=== PATIENT | female | born 1960 | race Caucasian/White ===

== ENCOUNTER 2017-10-06 06:29 | Emergency (ER) | payer MEDICAID, SELFPAY ==
[2017-10-06] VITALS (10 sets, daily range): BP systolic 127–131; BP diastolic 69–78; PULSE 110–117; RESP 22–36; TEMP 37.2; O2SAT 96–98
--- NOTE | 2017-10-06 06:47 | DI.REPORT_ITS ---
SYMPTOMS/DIAGNOSIS: LT CHEST PAIN AFTER FALL PA AND LATERAL CHEST: Comparison is 05/08/[address] scan of the chest is 09/28/17. The heart size and pulmonary vasculature are within normal limits. There is a stable diffuse reticular pattern in the lungs which is chronic. No new infiltrates, effusions or pneumothoraces are identified. The bones appear intact. IMPRESSION: No acute process.
--- NOTE | 2017-10-06 06:47 | ED.GENADUL ---
Disposition Clinical Impression: Fall, Chest pain, Arm pain, left Disposition: HOME Instructions: Chest Pain (ED), Contusion in Adults (ED), Fall Prevention (ED) Additional Instructions: Use sling as needed for comfort. Please take tylenol (acetaminophen) 650 mg every 6 hours as needed for pain. Please follow-up with your primary care physician. Return to the emergency department immediately for any worsening or new concerning symptoms. Referrals: Remy Ortega [Primary Care Provider] - Medical Decision Making - Medical Decision Making 6:50 --57-year-old female presents after mechanical fall yesterday with pain left chest as well as left upper arm. Screening EKG reviewed and interpreted by me: Sinus tachycardia 116 bpm left axis, nondiagnostic. Plan to assess for pneumothorax with a chest x-ray. Consider arm fracture. Will obtain x-ray. 8:05 --chest x-ray interpreted by radiology: Patchy increased opacity at the lung bases may reflect chronic interstitial lung disease. Left humerus x-ray interpreted by radiology: Normal left humerus x-ray with no acute fracture. Left shoulder x-ray interpreted by radiology: Normal left shoulder x-ray with no acute fracture. Will place sling for comfort. Advised tylenol and follow-up pcp. History of Present Illness - General Chief complaint: Chest/Rib Stated complaint: CALEX Time Seen by Provider: 10/06/17 06:46 Source: patient, EMS, RN notes reviewed Mode of arrival: EMS Limitations: no limitations - History of Present Illness Initial comments: 57-year-old female with history of COPD, bipolar disorder, alcohol abuse, here with chief complaint of left arm pain. Patient notes that she tripped and fell yesterday and subsequently developed pain in her arm, shoulder as well as her left chest. Pain is severe and worse with movement. No associated numbness. No worsening of her chronic shortness of breath. - Related Data Albuterol Sulfate [Proair Hfa] 2 puff IH Q4H PRN PRN 01/01/16 Citalopram [CeleXA] 40 mg PO DAILY 01/03/16 RisperiDONE [risperDAL] 1.5 mg PO HS 01/03/16 Levothyroxine Sodium [Synthroid] 75 mcg PO DAILY #90 tablet 06/25/16 Magnesium Oxide [Mag-Ox 400] 800 mg PO BID #60 tab 06/25/16 Nicotine [Nicoderm Cq] 14 mg TD DAILY #30 patch 06/25/16 Polyethylene Glycol 3350 [Miralax] 17 gm PO BID PRN PRN packet 06/25/16 Epinephrine [Epipen 2-Janes] 0.3 mg IM PRN PRN 07/10/16 Budesonide/Formoterol Fumarate [Symbicort 160/4.5 Mcg Inhaler] 2 puff IH BID inh 07/16/16 Cyanocobalamin [Vitamin B-12] 1,000 mcg PO DAILY #100 tab 07/16/16 Cyclobenzaprine HCl 10 mg PO TID PRN 07/29/16 Disulfiram [Antabuse] 250 mg PO DAILY 07/29/16 Ibuprofen 800 mg PO TID 07/29/16 Omeprazole 40 mg PO DAILY 07/29/16 Umeclidinium Brm/Vilanterol Tr [Anoro Ellipta 62.5-25 Mcg INH] 1 each IH DAILY 07/29/16 TraZODone [Desyrel] 100 mg PO HS PRN 08/04/16 Zolpidem Tartrate [Ambien] 10 mg PO HS PRN PRN 08/04/16 Alprazolam [Xanax Xr] 3 mg PO DAILY tab-cap 10/28/16 Buspirone HCl 15 mg PO BID tab-cap 10/28/16 Gabapentin 100 mg PO TID 10/28/16 Calcium Citrate/Vitamin D2 [Clemente-Citrate Plus Vitamin D Tab] 1 tab PO DAILY 12/04/16 Gemfibrozil 600 mg PO BID 12/04/16 Pregabalin [Lyrica] 1 cap PO BID 12/04/16 Lisinopril 5 mg PO DAILY 12/06/16 Albuterol/Ipratropium [Duoneb Updraft] 3 ml UPD Q6H 30 Days #1 b 05/17/17 Famciclovir [Famvir] 500 mg PO Q8H 2 Days #6 tab 05/17/17 Meloxicam 15 mg PO DAILY #90 tab-cap 09/28/17 BuPROPion [Wellbutrin] 300 mg PO DAILY 10/06/17 Allergies Allergy/AdvReac Type Severity Reaction Status Date / Time venom-honey bee Allergy Severe Anaphylaxsi Unverified 10/06/17 06:41 s Review of Systems Respiratory: shortness of breath (Chronic unchanged). denies: cough Cardiovascular: chest pain (Positional) Gastrointestinal: denies: abdominal pain Hematological/Lymphatic: easy bruising Comment: All other systems reviewed and negative Past Medical History - Past Medical History Medical history: COPD, GERD, hyperlipidemia, hypertension Hypothyroidism; Pulmonary Fibrosis Surgical history: , hysterectomy, other (right shoulder replacement) Family history: CAD/[place], cancer, diabetes - Social History Alcohol use: recent Drug use: marijuana General Exam - General Limitations: no limitations General appearance: alert, in no apparent distress - Head Head exam: Present: atraumatic, normocephalic - Eye Eye exam: Present: EOMI. Absent: scleral icterus, conjunctival injection - ENT ENT exam: Present: mucous membranes moist - Respiratory Respiratory exam: Present: wheezes (Faint bilateral), chest wall tenderness (Left anterior and lateral chest that reproduces her pain), decreased breath sounds - Cardiovascular Cardiovascular Exam: Present: normal rhythm, tachycardia, normal heart sounds - GI/Abdominal GI/Abdominal exam: Present: soft. Absent: distended, tenderness - Extremities Exam Extremities exam: Present: other (Bruising all extremities, left upper extremity: Tender palpation proximal to mid humerus as well as shoulder, distal sensation and motor intact, 2+ radial pulse) - Neurological Exam Neurological exam: Present: alert. Absent: altered - Psychiatric Psychiatric exam: Present: normal affect - Skin Skin exam: Present: warm, dry, intact Course Vital Signs - 24 hr 10/06/17 06:36 Temperature 37.2 C Pulse 117 H Respiratory 28 H Rate Blood Pressure 127/69 Pulse Oximetry 96
--- NOTE | 2017-10-06 06:48 | DI.REPORT_ITS ---
SYMPTOMS/DIAGNOSIS: LEFT ARM PAIN AND LEFT SHOULDER PAIN S/P FALL LEFT SHOULDER AND LEFT HUMERUS: Multiple views were obtained. Comparison is 10/28/16. No acute fracture or dislocation is identified. The soft tissues are unremarkable. IMPRESSION: No acute abnormality.
--- NOTE | 2017-10-06 06:50 | ED.GENADUL_ITS ---
Disposition Clinical Impression: Fall, Chest pain, Arm pain, left Disposition: HOME Instructions: Chest Pain (ED), Contusion in Adults (ED), Fall Prevention (ED) Additional Instructions: Use sling as needed for comfort. Please take tylenol (acetaminophen) 650 mg every 6 hours as needed for pain. Please follow-up with your primary care physician. Return to the emergency department immediately for any worsening or new concerning symptoms. Referrals: Remy Ortega [Primary Care Provider] - Medical Decision Making - Medical Decision Making 6:50 --57-year-old female presents after mechanical fall yesterday with pain left chest as well as left upper arm. Screening EKG reviewed and interpreted by me: Sinus tachycardia 116 bpm left axis, nondiagnostic. Plan to assess for pneumothorax with a chest x-ray. Consider arm fracture. Will obtain x-ray. 8:05 --chest x-ray interpreted by radiology: Patchy increased opacity at the lung bases may reflect chronic interstitial lung disease. Left humerus x-ray interpreted by radiology: Normal left humerus x-ray with no acute fracture. Left shoulder x-ray interpreted by radiology: Normal left shoulder x-ray with no acute fracture. Will place sling for comfort. Advised tylenol and follow-up pcp. History of Present Illness - General Chief complaint: Chest/Rib Stated complaint: CALEX Time Seen by Provider: 10/06/17 06:46 Source: patient, EMS, RN notes reviewed Mode of arrival: EMS Limitations: no limitations - History of Present Illness Initial comments: 57-year-old female with history of COPD, bipolar disorder, alcohol abuse, here with chief complaint of left arm pain. Patient notes that she tripped and fell yesterday and subsequently developed pain in her arm, shoulder as well as her left chest. Pain is severe and worse with movement. No associated numbness. No worsening of her chronic shortness of breath. - Related Data Albuterol Sulfate [Proair Hfa] 2 puff IH Q4H PRN PRN 01/01/16 Citalopram [CeleXA] 40 mg PO DAILY 01/03/16 RisperiDONE [risperDAL] 1.5 mg PO HS 01/03/16 Levothyroxine Sodium [Synthroid] 75 mcg PO DAILY #90 tablet 06/25/16 Magnesium Oxide [Mag-Ox 400] 800 mg PO BID #60 tab 06/25/16 Nicotine [Nicoderm Cq] 14 mg TD DAILY #30 patch 06/25/16 Polyethylene Glycol 3350 [Miralax] 17 gm PO BID PRN PRN packet 06/25/16 Epinephrine [Epipen 2-Janes] 0.3 mg IM PRN PRN 07/10/16 Budesonide/Formoterol Fumarate [Symbicort 160/4.5 Mcg Inhaler] 2 puff IH BID inh 07/16/16 Cyanocobalamin [Vitamin B-12] 1,000 mcg PO DAILY #100 tab 07/16/16 Cyclobenzaprine HCl 10 mg PO TID PRN 07/29/16 Disulfiram [Antabuse] 250 mg PO DAILY 07/29/16 Ibuprofen 800 mg PO TID 07/29/16 Omeprazole 40 mg PO DAILY 07/29/16 Umeclidinium Brm/Vilanterol Tr [Anoro Ellipta 62.5-25 Mcg INH] 1 each IH DAILY 07/29/16 TraZODone [Desyrel] 100 mg PO HS PRN 08/04/16 Zolpidem Tartrate [Ambien] 10 mg PO HS PRN PRN 08/04/16 Alprazolam [Xanax Xr] 3 mg PO DAILY tab-cap 10/28/16 Buspirone HCl 15 mg PO BID tab-cap 10/28/16 Gabapentin 100 mg PO TID 10/28/16 Calcium Citrate/Vitamin D2 [Clemente-Citrate Plus Vitamin D Tab] 1 tab PO DAILY 12/04 Gemfibrozil 600 mg PO BID 12/04/16 Pregabalin [Lyrica] 1 cap PO BID 12/04/16 Lisinopril 5 mg PO DAILY 12/06/16 Albuterol/Ipratropium [Duoneb Updraft] 3 ml UPD Q6H 30 Days #1 b 05/17/17 Famciclovir [Famvir] 500 mg PO Q8H 2 Days #6 tab 05/17/17 Meloxicam 15 mg PO DAILY #90 tab-cap 09/28/17 BuPROPion [Wellbutrin] 300 mg PO DAILY 10/06/17 Allergies Allergy/AdvReac Type Severity Reaction Status Date / Time venom-honey bee Allergy Severe Anaphylaxsi Unverified 10/06/17 06:41 s Review of Systems Respiratory: shortness of breath (Chronic unchanged). denies: cough Cardiovascular: chest pain (Positional) Gastrointestinal: denies: abdominal pain Hematological/Lymphatic: easy bruising Comment: All other systems reviewed and negative Past Medical History - Past Medical History Medical history: COPD, GERD, hyperlipidemia, hypertension Hypothyroidism; Pulmonary Fibrosis Surgical history: , hysterectomy, other (right shoulder replacement) Family history: CAD/[place], cancer, diabetes - Social History Alcohol use: recent Drug use: marijuana General Exam - General Limitations: no limitations General appearance: alert, in no apparent distress - Head Head exam: Present: atraumatic, normocephalic - Eye Eye exam: Present: EOMI. Absent: scleral icterus, conjunctival injection - ENT ENT exam: Present: mucous membranes moist - Respiratory Respiratory exam: Present: wheezes (Faint bilateral), chest wall tenderness ( Left anterior and lateral chest that reproduces her pain), decreased breath sounds - Cardiovascular Cardiovascular Exam: Present: normal rhythm, tachycardia, normal heart sounds - GI/Abdominal GI/Abdominal exam: Present: soft. Absent: distended, tenderness - Extremities Exam Extremities exam: Present: other (Bruising all extremities, left upper extremity : Tender palpation proximal to mid humerus as well as shoulder, distal sensation and motor intact, 2+ radial pulse) - Neurological Exam Neurological exam: Present: alert. Absent: altered - Psychiatric Psychiatric exam: Present: normal affect - Skin Skin exam: Present: warm, dry, intact Course Vital Signs - 24 hr 10/06/17 06:36 Temperature 37.2 C Pulse 117 H Respiratory 28 H Rate Blood Pressure 127/69 Pulse Oximetry 96
--- NOTE | 2017-10-06 07:40 | DI.VRAD_ITS ---
EXAM: XR Chest, 2 Views EXAM DATE/TIME: 10/06/2017 6:49 AM. CLINICAL HISTORY: 57 years old, female; Pain; Chest pain TECHNIQUE: Frontal and lateral views of the chest. COMPARISON: CR - PORTABLE AP CHEST, POST LINE 2017-05-10 11:42 FINDINGS: Lungs: Patchy increased opacity at the lung bases may reflect chronic interstitial lung disease. Pleural space: Unremarkable. No pneumothorax. Heart: Unremarkable. No cardiomegaly. Mediastinum: Unremarkable. Bones/joints: Unremarkable. IMPRESSION: Patchy increased opacity at the lung bases may reflect chronic interstitial lung disease. Dictated and Authenticated by: Leander Edward MD. Ordering:NIKKI RAHMAN MD
--- NOTE | 2017-10-06 07:41 | DI.VRAD_ITS ---
EXAM: XR Left Humerus, 2 or More Views EXAM DATE/TIME: 10/06/2017 6:49 AM. CLINICAL HISTORY: 57 years old, female; Injury or trauma; Fall; Initial encounter; Sprain or strain; Arm, upper; Left TECHNIQUE: Frontal and lateral views of the left humerus. COMPARISON: No relevant prior studies available. FINDINGS: Bones/joints: Unremarkable. No acute fracture. No dislocation. Soft tissues: Unremarkable. IMPRESSION: Normal left humerus x-rays. Dictated and Authenticated by: Leander Edward MD. Ordering:NIKKI RAHMAN MD
--- NOTE | 2017-10-06 07:41 | DI.VRAD_ITS ---
EXAM: XR Left Shoulder Complete, 2 or More Views EXAM DATE/TIME: 10/06/2017 6:49 AM. CLINICAL HISTORY: 57 years old, female; Pain; Shoulder; Left TECHNIQUE: Two or more views of the left shoulder. COMPARISON: CR - LEFT SHOULDER COMPLETE 2016-10-28 10:20 FINDINGS: Bones/joints: Unremarkable. No acute fracture. No dislocation. Soft tissues: Unremarkable. IMPRESSION: Normal left shoulder x-rays. Dictated and Authenticated by: Leander Edward MD. Ordering:NIKKI RAHMAN MD
[2017-10-06] MEDS: Acetaminophen 325 MG TAB 650 MG PO (08:10)
--- NOTE | 2017-10-06 08:44 | NUR.NOTE ---
Nursing Note: Medium sling fitted to pt. pt understands instructions, no questions.
== END 2017-10-06 08:39 | disposition home or self-care (01) ==
PROVIDERS: Emergency Provider Student in an Organized Health Care Education/Training Program; PCP Family Medicine
DX: R07.81 Pleurodynia (principal); M79.622 Pain in left upper arm; M25.512 Pain in left shoulder; W01.198A Fall on same level from slipping, tripping and stumbling with subsequent striking against other object, initial encounter; J44.9 Chronic obstructive pulmonary disease, unspecified; F17.210 Nicotine dependence, cigarettes, uncomplicated; I10 Essential (primary) hypertension
CPT/HCPCS: 93005; 99284; 71046; 73030; 73060; 93010; 99285; L3650

== ENCOUNTER 2017-10-09 17:12 | Emergency (ER) | payer MEDICAID, SELFPAY ==
[2017-10-09] VITALS (38 sets, daily range): BP systolic 77–158; BP diastolic 49–75; PULSE 91–119; RESP 8–34; TEMP 36.3–37.2; O2SAT 83–100
--- NOTE | 2017-10-09 17:14 | DI.REPORT_ITS ---
SYMPTOM/DIAGNOSIS: S/P ARREST CHEST: Portable AP view. Comparison 10/06/17 The heart size and pulmonary vasculature are within normal limits. There is an endotracheal tube in good position approximately 4 1/2 cm above the que. No effusions or pneumothoraces are identified. There are bilateral interstitial infiltrates present. No focal consolidating infiltrate is seen. No acute osseous abnormalities identified. IMPRESSION: 1. Endotracheal tube in good position approximately 4.5 cm above the que 2. Bilateral interstitial markings which may represent edema or pneumonitis. Please correlate clinically.
[2017-10-09] MEDS: Etomidate 20 MG/10 ML VIAL IVP (17:16)
[2017-10-09] MEDS: Succinylcholine 200 MG/10 ML VIAL 100 MG IVP (17:17)
--- NOTE | 2017-10-09 17:27 | DI.RPTCT_ITS ---
SYMPTOM/DIAGNOSIS: OBTUNDED, CARDIAC ARREST CT BRAIN: Noncontrast. Comparison is 07/15/16 There is patient motion artifact present. The bedoya white matter differentiation is well maintained. The ventricles are intact. The basilar cisterns are patent. No intracranial hemorrhage, infarct, acute midline shift or mass effect is identified. The patient has an endotracheal tube and a nasogastric tube in place. There is mild mucosal thickening in the right maxillary sinus and ethmoid air cells bilaterally. The remaining visualized paranasal sinuses are clear. The mastoid air cells are well pneumatized. The calvarium is intact. There is a small scalp hematoma overlying the right frontal bone. IMPRESSION: 1. No acute intracranial process. 2. Small scalp hematoma overlying the right frontal bone. 3. Sinus disease as described. CT CERVICAL SPINE: Multiple contiguous axial images of the cervical spine were obtained. Sagittal and coronal reformatted images were evaluated on the [facility]'s work station. There is patient motion artifact present. This does compromise the examination. There is no acute fracture or subluxation in the cervical spine. There is straightening of the normal cervical lordosis. This may be due to muscle spasm or patient positioning. The patient has an endotracheal tube and a nasogastric tube in place. There are mild to moderate degenerative changes present throughout the cervical spine. IMPRESSION: 1. Patient motion artifact. This does limit the examination. A nondisplaced fracture could be missed on this examination. 2. No definite acute fracture or dislocation is identified.
[2017-10-09] MEDS: PROPOFOL 1,000 MG/100 ML BTL 10.1 MG (17:30)
[2017-10-09] MEDS: Albuterol 2.5 MG/3 ML INH SOLN VIAL 7.5 MG (17:30)
[2017-10-09] MEDS: PROPOFOL 1,000 MG/100 ML BTL 15.1 MG IVPB (17:30)
[2017-10-09] MEDS: Normal Saline 500 ML IV (17:31)
[2017-10-09] MEDS: PROPOFOL 1,000 MG/100 ML BTL 10.1 MG IVPB (17:33)
[2017-10-09] MEDS: PROPOFOL 1,000 MG/100 ML BTL 1 MG (17:33)
[2017-10-09 17:55] LABS: Lactate-non-spesis 5.3 mmol/L (0.6-1.4)
--- NOTE | 2017-10-09 17:55 | DI.RPTCT_ITS ---
SYMPTOM/DIAGNOSIS : CARDIAC ARREST, HYPOXIC CT SCAN CHEST: CT angiography was performed with multi slice acquisition and multi planar and 3D reconstruction. CT scan of the chest was performed according to the pulmonary embolus protocol. There is patient motion artifact present. Comparison is 09/28/17. There is no evidence of a pulmonary embolus. The thoracic aorta is normal in caliber with atherosclerosis. No dissection or aneurysm is seen. Heart size is within normal limits. No significant pericardial effusion. No findings to suggest right ventricular dysfunction is seen. There are mildly enlarged lymph nodes in the mediastinum but no significant adenopathy is present. No pleural effusion or pneumothorax is identified. There are bilateral pulmonary infiltrates present which may represent atelectasis, pneumonia or interstitial edema. There are stable pulmonary nodules seen compared to the examination from . Moderate emphysematous changes are present in the lungs. Degenerative changes are seen in the spine. The patient has endotracheal tube which is in good position above the que. There is a nasogastric tube present. The tube passes in to the stomach in good position. IMPRESSION: 1. No evidence of a pulmonary embolus or thoracic aortic dissection. 2. Bilateral pulmonary infiltrates. This may represent edema or infection. Atelectasis cannot be excluded. Some degree of aspiration should be considered. 3. Stable pulmonary nodules and mediastinal lymph nodes.
[2017-10-09 17:59] LABS: Bilirubin Negative (Negative); Blood Trace-lysed (Negative); Clarity Clear; Glucose Negative (Negative); Ketones Trace mg/dL (Negative); Leukocyte Esterase Negative (Negative); Nitrite Negative (Negative); Specific Gravity >= 1.030 (1.005-1.025); Urobilinogen 0.2 EU/dL (Up TO 0.2); pH 5.5 (5-8)
[2017-10-09 18:00] LABS: HCT 40.2 % (36.0-46.0); HGB 13.9 g/dL (12.0-15.5); Mean Corp. HGB Concentration 34.6 g/dL (32.0-36.0); Mean Corpuscular Hemoglobin 33.7 pg (27.0-33.0); Mean Corpuscular Volume 97.6 fL (80-95); Mean Platelet Volume 10.4 fL (8.0-11.0); Platelet Count 169 x1000/uL (130-400); RBC 4.12 m/cumm (4.00-5.20); RBC Distribution Width 16.8 % (11.7-14.6); White Blood Cell Count 15.01 k/cumm (4.4-10.8)
--- NOTE | 2017-10-09 18:01 | DI.VRAD_ITS ---
EXAM: XR Chest, 1 View CLINICAL HISTORY: 57 years old, female; Condition or disease; Other: S/P arrest; Prior surgery TECHNIQUE: Frontal view of the chest. COMPARISON: CR - CHEST 2 VIEWS PA,LAT 2017-10-06 07:00 FINDINGS: Lungs: Prominent reticular markings consistent with interstitial disease, likely interstitial edema. Other interstitial lung processes are not excluded. Patchy densities in the left lung base, likely atelectasis. Pleural space: No pleural effusion or pneumothorax. Heart: Unremarkable cardiomediastinal silhouette and pulmonary vasculature. Mediastinum: See above. Bones/joints: Unremarkable. No acute osseous abnormality identified. Tubes, lines and devices: Endotracheal tube present with its tip approximately 4.5 cm above the que. IMPRESSION: 1. Endotracheal tube tip approximately 4.5 cm above the que. 2. Prominent reticular markings consistent with interstitial disease, likely interstitial edema. Dictated and Authenticated by: Duran Ibanez MD. Ordering:ANDREA TOURE MD
[2017-10-09 18:10] LABS: Salicylate 8.1 mg/dL (2.8-20.0)
[2017-10-09 18:10] LABS: HCO3 22 mmol/L (22-28); pO2 236 mmHg (83-108); sO2 98 % (94-98); tCO2 22 mmol/L (22-29)
[2017-10-09 18:12] LABS: *AMPHETAMINES SCREEN URINE Negative (Negative); *BARBITURATES SCREEN URINE Negative (Negative); *BENZODIAZEPINES SCREEN URINE POSITIVE (Negative); Cannabinoids THC Negative (Negative); Cocaine Screen,Urine Negative (Negative); METHADONE URINE SCREEN Negative (Negative); OPIATES URINE SCREEN Negative (Negative)
[2017-10-09 18:12] LABS: pH 7.05 (7.35-7.45)
[2017-10-09 18:13] LABS: Site Right Radial; pCO2 80 mmHg (34-47)
[2017-10-09 18:14] LABS: ALT 68 U/L (12-78); AST 129 U/L (15-37); Albumin 3.5 g/dL (3.4-5.0); Alkaline Phosphatase 154 U/L (46-116); Anion Gap 16.8 mmol/L (3-11); BUN 10 mg/dL (7-18); Bilirubin, Direct 0.16 mg/dL (0.00-0.20); Bilirubin, Total 0.3 mg/dL (0.2-1.0); CO2 20.2 mmol/L (21.0-32.0); CREATININE 0.96 mg/dL (0.55-1.02); Calcium 8.7 mg/dL (8.5-10.1); Chloride 94 mmol/L (98-107); Glucose 216 mg/dL (70-100); Magnesium 2.2 mg/dL (1.8-2.4); Potassium 5.1 mmol/L (3.5-5.1); Sodium 131 mmol/L (136-145); Total Protein 8.1 g/dL (6.4-8.2)
[2017-10-09 18:14] LABS: FIO2L Unknown/Not Given L
[2017-10-09 18:16] LABS: Tricyclic Antidepressants POSITIVE (Negative)
[2017-10-09 18:16] LABS: Troponin I < 0.02 ng/mL (0.00-0.06)
--- NOTE | 2017-10-09 18:16 | ED.GENADUL ---
Disposition Clinical Impression: Respiratory arrest, Acidosis, Sepsis, Cardiac arrest, Septic shock Disposition: FIDE SAENZ ([facility]) Condition: Critical Medical Decision Making - Lab Data Laboratory Tests 10/09/17 10/09/17 10/09/17 17:15 17:15 17:40 Sample Site pCO2 pO2 O2 Saturation ABG pH ABG HCO3 ABG Total CO2 ABG Base Excess Oxygen Liter Flow Sodium 131 L Potassium 5.1 Chloride 94 L Carbon Dioxide 20.2 L Anion Gap 16.8 H BUN 10 Creatinine 0.96 Estimated GFR/1.73 m2 >= 60.00 Glucose 216 H Lactate 5.3 H Calcium 8.7 Magnesium 2.2 Total Bilirubin 0.3 Conjugated Bilirubin 0.16 AST 129 H ALT 68 Alkaline Phosphatase 154 H Troponin I < 0.02 Total Protein 8.1 Albumin 3.5 Urine Color Yellow Urine Clarity Clear Urine pH 5.5 Ur Specific Mystic >= 1.030 H Urine Protein 100 H Urine Ketones Trace H Urine Blood Trace-lysed H Urine Nitrite Negative Urine Bilirubin Negative Urine Urobilinogen 0.2 Ur Leukocyte Esterase Negative Urine Glucose Negative 10/09/17 18:05 Sample Site Right radial pCO2 80 H* pO2 236 H O2 Saturation 98 ABG pH 7.05 L* ABG HCO3 22 ABG Total CO2 22 ABG Base Excess Oxygen Liter Flow Unknown/not given Sodium Potassium Chloride Carbon Dioxide Anion Gap BUN Creatinine Estimated GFR/1.73 m2 Glucose Lactate Calcium Magnesium Total Bilirubin Conjugated Bilirubin AST ALT Alkaline Phosphatase Troponin I Total Protein Albumin Urine Color Urine Clarity Urine pH Ur Specific Mystic Urine Protein Urine Ketones Urine Blood Urine Nitrite Urine Bilirubin Urine Urobilinogen Ur Leukocyte Esterase Urine Glucose - Medical Decision Making Is a 57-year-old female with a past medical history of pulmonary fibrosis, COPD, multiple intubations, who presents today for respiratory and potential cardiac arrest. Family states over the last 2-3 days she has been getting slightly confused, bumping into things becoming very clumsy. Per EMS and fire the patient was found unresponsive on the floor, it sounds like the patient was either in severe bradycardia, or PEA with a extremely low rate. For minutes total of medical CPR were administered, unknown duration for bystander CPR. No medications were needed, no shocks were given. By the time the patient arrived she was in ROS see, and breathing spontaneously, however she was in respiratory extremis. GCS was 3. She was intubated upon arrival. No overt signs of trauma were initially noted. CT scan of the chest show no evidence of pulmonary embolism but did show potential pneumonia versus aspiration. Lung sounds are very coarse with notable wheezes, she was given albuterol, magnesium sulfate, and Solu-Medrol. CT the head was negative for any acute process. Laboratory workup demonstrates notably elevated white count, a pH of 7.05, and a PCO2 of 80. This correlates well with a respiratory component that we were suspecting from potential COPD and potential respiratory arrest. Because of her elevated white count, and questionable infection findings on CT we did start broad-spectrum antibiotics for double gram-negative coverage with vancomycin, Zosyn, and Levaquin. Troponin was normal. EKG showed right bundle branch block. Urine drug screen was positive for TCAs which correlates with the patient's medical history however family denied any recent suicidal ideations, depression, or suicidal attempts. Although the QRS is wide at 133 secondary to the right bundle, evaluation of her QRS in V4 V5 and V6 appears more normal. I feel that this is unlikely to be secondary from a TCA overdose as it would not correlate with her history per family, or her current clinical presentation with her respiratory arrest components and COPD and elevated CO2 level and past medical history. During the patient's stay her blood pressure did begin to drop. She had been given her 30 cc/kg bolus for potential sepsis, however in spite of this and her lowering blood pressure a right IJ central line was placed and Levophed was started to maintain a map greater than 65. I did discuss the need for transport with family and they requested the [facility] as that is where they will live. I did discuss the case with the computing services director at [facility], they agreed with the assessment and plan. Dr. Barrios agreed to accept the patient. Patient will be transported by ground to [facility]. We did discuss the potential cardiac arrest versus respiratory arrest component, and out of an abundance of precaution we will start the hypothermia protocols with ice packing. I have extensively reviewed the treatment plan with the patient. I have addressed all patient concerns at this time. I have also discussed the plan with the admitting physician and they agree with the current assessment and plan and have agreed to assume responsibility for the patient. All parties demonstrate verbal understanding and agreement with our assessment and plan at this time. Charge all labs and images were reviewed. IJ is in good placement per x-ray by virtual radiology, CT head is negative for acute process. Critical CARE time: Greater than 40 minutes was spent evaluating labs, making medical decisions for the patient, speaking with consultants, and arranging the plan of care for the patient. EKG 17: 27 rate 111, VT 137, QT 380, QRS 133, incomplete right bundle branch block, no ST elevations. Inverted T waves in V1 V2 V3. These changes are new from prior EKGs. Procedure: Endotracheal Intubation Indication: Respiratory Distress A time-out was completed verifying correct patient, procedure, site, positioning, and special equipment if applicable. The patient was placed in a flat position. Sedation was obtained using <Etomidate 20mg> and paralysis was obtained using <succinylcholine 100mg>. The patient was easily ventilated using an ambu bag. The MAC 4 BLADE was used and inserted into the oropharynx at which time there was a Grade 1 view of the vocal cords. A 7.5-estonian endotracheal tube was inserted and visualized going through the vocal cords. The stylette was removed. Colorimetric change was visualized on the CO2 meter. Breath sounds were heard in both lung kern equally. The endotracheal tube was placed at 23 cm, measured at the teeth. A chest x-ray was ordered to assess for pneumothorax and verify endotrachealtube placement. No pneumothorax was seen and tube was in good position. The patient tolerated the procedure well and there were no complications. Procedure: Internal Jugular Central Venous Catheter Indication: Hemodynamic monitoring/Intravenous access PROCEDURE SUMMARY: A time-out was performed. The patient?s right neck region was prepped and draped in sterile fashion using chlorhexidine scrub. Anesthesia was achieved with 1% lidocaine. The internal jugular vein was accessed under ultrasound guidance using a finder needle.Venous blood was withdrawn. A guidewire was advanced through the needle. A small incision was made with a 10 blade scalpel and the dilator was advanced over the guidewire until appropriate dilation was obtained. The dilator was removed and a triple lumen catheter was advanced over the guidewire and secured into place with 2 simple interrupted sutures. At time of procedure completion, all ports aspirated and flushed properly. Post-procedure x-ray shows the tip of the catheter within the superior vena cava. ESTIMATED BLOOD LOSS: 5ml?s The patient tolerated the procedure well there were no complications. History of Present Illness - General Chief complaint: AMS/LOC Stated complaint: CALEX Time Seen by Provider: 08/04/18 17:14 - History of Present Illness Initial comments: This is a 57-year-old female with a past medical history of asthma, COPD, pulmonary pyrosis, alcohol abuse, hypothyroidism, hysterectomy who presents today post cardiac arrest. The patient was found unresponsive on the bathroom floor, CPR was started by bystanders, fire arrived and differentiated between severe bradycardia versus asystole and continued CPR. By the time EMS arrived roughly 2 minutes later they reevaluated the patient and she was noted to have notable bradycardia, which after 2 continued minutes of CPR led to a tachycardic heart rate, and return of normal breathing. No shocks were given, no medications were given. Questionable true cardiac arrest. Definite respiratory arrest. Patient was immediately brought to the ER for further evaluation. Blood glucose is within normal limits. There is no signs of trauma. No other bystander history for review. Per family over the last 2-3 days they have noted that the patient is become slightly more confused, and has been tripping and stumbling into things. Of note she was here in the emergency department within the last 3-4 days, secondary to fall. She had benign radiographs at that time. Patient does have a past history of intubations. Unknown history of IV or illicit drug use. Unknown pertinent family history. - Related Data RX: Albuterol Sulfate [Proair Hfa] 2 puff IH Q4H PRN PRN 01/01/16 RX: Citalopram [CeleXA] 40 mg PO DAILY 01/03/16 RX: RisperiDONE [risperDAL] 1.5 mg PO HS 01/03/16 RX: Levothyroxine Sodium [Synthroid] 75 mcg PO DAILY #90 tablet 06/25/16 RX: Magnesium Oxide [Mag-Ox 400] 800 mg PO BID #60 tab 06/25/16 RX: Nicotine [Nicoderm Cq] 14 mg TD DAILY #30 patch 06/25/16 RX: Polyethylene Glycol 3350 [Miralax] 17 gm PO BID PRN PRN packet 06/25/16 RX: Epinephrine [Epipen 2-Janes] 0.3 mg IM PRN PRN 07/10/16 RX: Budesonide/Formoterol Fumarate [Symbicort 160/4.5 Mcg Inhaler] 2 puff IH BID inh 07/16/16 RX: Cyanocobalamin [Vitamin B-12] 1,000 mcg PO DAILY #100 tab 07/16/16 RX: Cyclobenzaprine HCl 10 mg PO TID PRN 07/29/16 RX: Disulfiram [Antabuse] 250 mg PO DAILY 07/29/16 RX: Ibuprofen 800 mg PO TID 07/29/16 RX: Omeprazole 40 mg PO DAILY 07/29/16 RX: Umeclidinium Brm/Vilanterol Tr [Anoro Ellipta 62.5-25 Mcg INH] 1 each IH DAILY 07/29/16 RX: TraZODone [Desyrel] 100 mg PO HS PRN 08/04/16 RX: Zolpidem Tartrate [Ambien] 10 mg PO HS PRN PRN 08/04/16 RX: Alprazolam [Xanax Xr] 3 mg PO DAILY tab-cap 10/28/16 RX: Buspirone HCl 15 mg PO BID tab-cap 10/28/16 RX: Gabapentin 100 mg PO TID 10/28/16 RX: Calcium Citrate/Vitamin D2 [Clemente-Citrate Plus Vitamin D Tab] 1 tab PO DAILY 12/04/16 RX: Gemfibrozil 600 mg PO BID 12/04/16 RX: Pregabalin [Lyrica] 1 cap PO BID 12/04/16 RX: Lisinopril 5 mg PO DAILY 12/06/16 RX: Albuterol/Ipratropium [Duoneb Updraft] 3 ml UPD Q6H 30 Days #1 b 05/17/17 RX: Famciclovir [Famvir] 500 mg PO Q8H 2 Days #6 tab 05/17/17 RX: Meloxicam 15 mg PO DAILY #90 tab-cap 09/28/17 RX: BuPROPion [Wellbutrin] 300 mg PO DAILY 10/06/17 Allergies Allergy/AdvReac Type Severity Reaction Status Date / Time venom-honey bee Allergy Severe Anaphylaxsi Unverified 10/06/17 06:41 s Review of Systems Limitations: ROS unobtainable due to patients medical condition Past Medical History - Past Medical History Medical history: COPD, GERD, hyperlipidemia, hypertension Hypothyroidism; Pulmonary Fibrosis Surgical history: , hysterectomy, other (right shoulder replacement) Family history: CAD/RI, cancer, diabetes - Social History Alcohol use: recent Drug use: marijuana General Exam - Other Other exam information: 1.Const: Acute distress 2.Eyes: PERRL, pupils 5 mm bilaterally no conjunctival injection, and symmetrical lids. 3.ENT: Atraumatic external nose and ears. Moist MM. Neck: Symmetric, trachea midline, No thyromegaly. There is no evidence of raccoon eyes, mccarty sign, CSF rhinorrhea, mastoid tenderness, cranial crepitus, hemotympanum, exophthalmos, or hyphema. Patient demonstrates intact dentition with no signs of tooth avulsion or fracture, no signs of jaw deformity, no evidence of a LeFort's fracture, with an intact palate, nose and orbital region. There is no evidence of a nasal septal hematoma. No proptosis. Jaw closes symmetrically. Airway is clear. 4.CVS: Tachycardic, +S1/S2, No murmurs or gallops. Peripheral pulses 2+ and equal in all extremities. Brisk capillary refill in all extremities. 5.RESP: Crackles, wheezes, and coarse breath sounds throughout. Bilateral lung movement. Acute respiratory distress and in extremis 6.GI: Soft, Nontender/Nondistended, No hepatosplenomegaly. No guarding or rebound. 7.MSK: Bruises over her right gama. Scars over her shoulders bilaterally. No signs of major trauma. Spontaneous movement of upper and lower extremities, albeit minimal. 8.Skin: Cool, diaphoretic 9.Neuro: GCS of 3 Course Vital Signs - 24 hr 10/09/17 10/09/17 10/09/17 17:11 17:16 17:20 Temperature Pulse 119 H Respiratory 20 33 H Rate Blood Pressure 158/75 Pulse Oximetry 99 99 99 10/09/17 10/09/17 17:30 17:39 Temperature 36.6 C Pulse 104 H Respiratory 13 34 H Rate Blood Pressure 130/74 Pulse Oximetry 95 90 L
[2017-10-09 18:17] LABS: Acetaminophen < 2 ug/mL (10-30)
[2017-10-09 18:23] LABS: Absolute Lymphocyte Count 2.25 k/cumm (1.2-3.4); Absolute Neutrophil Count 10.66 k/cumm (1.2-6.7)
[2017-10-09 18:24] LABS: Anisocytosis 1+; Diff Comment Manual Differential; RBC Morphology Normal
[2017-10-09 18:25] LABS: Bacteria Negative HPF (Negative); C & S Indicated? Yes; Crystals Negative HPF (Negative); Epithelial Cells Negative HPF (Negative); Mucus Trace (Negative); Other Cells Rare Renal (Negative); RBC Negative (0-2)
[2017-10-09] MEDS: Albuterol/Ipratropium 3 ML UPD VIAL UPD (18:51)
[2017-10-09] MEDS: Omnipaque 350 MG/ML 100 ML BTL IJ (18:56)
--- NOTE | 2017-10-09 19:09 | DI.VRAD_ITS ---
EXAM: CT Cervical Spine Without Intravenous Contrast CLINICAL HISTORY: 57 years old, female; Injury or trauma; Fall; Initial encounter; Patient HX: S/P fall after cardiac arrest TECHNIQUE: Axial computed tomography images of the cervical spine without intravenous contrast. Coronal and sagittal reformatted images were created and reviewed. COMPARISON: No relevant prior studies available. FINDINGS: Vertebrae: Mild motion artifact in the cervical spine, with no displaced fractures or significant listhesis. A minor, nondisplaced fracture could be missed on this study. Discs/spinal canal/neural foramina: Multilevel degenerative changes. Posterior disc osteophyte complexes, small multilevel. Mid cervical disc space narrowing. Soft tissues: Unremarkable. Thyroid: Calcified right thyroid nodule. Lung apices: Centrilobular emphysema is suspected in the apices, motion artifact. Tubes, lines and devices: Endotracheal tube and nasogastric tube partially seen in the expected positions. IMPRESSION: 1. Mild motion artifact in the cervical spine, with no displaced fractures or significant listhesis. 2. A minor, nondisplaced fracture could be missed on this study. EXAM: CT Head Without Intravenous Contrast CLINICAL HISTORY: 57 years old, female; Injury or trauma; Fall; Initial encounter; Patient HX: S/P fall after cardiac arrest TECHNIQUE: Axial computed tomography images of the head/brain without intravenous contrast. Coronal and sagittal reformatted images were created and reviewed. COMPARISON: No relevant prior studies available. FINDINGS: Brain: No focal pathology. No hemorrhage. No significant white matter disease. No edema. Ventricles: No focal pathology. No ventriculomegaly. Bones/joints: No focal pathology. No acute fracture. Soft tissues: Tiny focus of swelling in the right frontal scalp. Sinuses: Ethmoid and right maxillary sinus disease. Mastoid air cells: Unremarkable as visualized. No mastoid effusion. Tubes, lines and devices: Endotracheal tube and nasogastric tube are partially seen. IMPRESSION: 1. No acute intracranial findings. 2. Tiny focus of swelling in the right frontal scalp. 3. Ethmoid and right maxillary sinus disease. Dictated and Authenticated by: Shelley Comer MD. Ordering:SARAH GUZMAN MD
--- NOTE | 2017-10-09 19:20 | DI.VRAD_ITS ---
EXAM: CT Angiography Chest With Intravenous Contrast CLINICAL HISTORY: 57 years old, female; Condition or disease; Cardiovascular condition or disease; Cardiac arrest; Patient HX: Cardiac arrest, hypoxic TECHNIQUE: Axial computed tomographic angiography images of the chest with intravenous contrast using pulmonary embolism protocol. MIP reconstructed images were created and reviewed. Coronal and sagittal reformatted images were created and reviewed. COMPARISON: CT - CHEST WITH CONTRAST 2017-09-28 21:19 FINDINGS: Pulmonary arteries: No definite pulmonary embolism is seen. Aorta: Evaluation of the ascending aorta is limited secondary to motion. The aorta and main pulmonary artery are similar in caliber which can be seen with pulmonary arterial hypertension. No thoracic aortic aneurysm. Lungs: Centrilobular emphysematous changes remain seen. There has been an interval increase in reticular and patchy opacities scattered throughout the pulmonary parenchyma. This could represent areas of edema, infection, or a combination. Elements of aspiration not excluded. The patient has a history of scattered pulmonary nodules and nodular densities. The largest in the right lung measures 1.1 cm, slightly more conspicuous, image 58. The largest in the left lung measures 7 mm, unchanged, image 48. Scattered new nodular densities are seen. The most conspicuous is in the right upper lobe on series 5 image 22, 1.1 cm. Pleural space: Unremarkable. No significant effusion. No pneumothorax. Heart: Unremarkable. No cardiomegaly. No significant pericardial effusion. There is reflux of contrast into the IVC which can be seen with right heart failure. Bones/joints: There are skeletal degenerative changes. Healing right lateral rib fractures unchanged. No dislocation. Soft tissues: Unremarkable. Lymph nodes: Mediastinal lymph nodes are more prominent than on prior examination. A prevascular lymph node on image 33 measures 8 mm on short axis, previously 6 mm. A precarinal lymph node on image 34 measures 9 mm on short axis, previously 6 mm. Liver: Hepatic steatosis. Tubes, lines and devices: ET tube is above the que. NG tube tip overlies the stomach. Other findings: There is motion on this examination. Vascular calcifications. IMPRESSION: 1. There has been an interval increase in reticular and patchy opacities throughout the pulmonary parenchyma. This could represent areas of edema, infection, or a combination. Elements of aspiration not excluded. 2. The patient has a history of scattered pulmonary nodules/nodular densities. One is slightly more conspicuous while others are unchanged. Scattered new nodular densities are seen. Followup suggested. 3. the aorta and main pulmonary artery are similar in caliber which can be seen with pulmonary arterial hypertension. There is reflux of contrast into the IVC which can be seen with right heart failure. 4. Mediastinal lymph node prominence. This may be reactive. Other findings as above. Dictated and Authenticated by: Darlene Samson MD. Ordering:SARAH GUZMAN MD
[2017-10-09] MEDS: MAGNESIUM SULFATE 2 GM/50 ML BAG IVPB (19:31)
--- NOTE | 2017-10-09 19:55 | DI.REPORT_ITS ---
SYMPTOM/DIAGNOSIS: CENTRAL LINE PLACEMENT. CHEST X-RAY: Portable AP view. Comparison with examination from earlier in the day. Heart size and pulmonary vasculature are within normal limits. The endotracheal tube is in good position well above the que. There has been interval placement of a nasogastric tube which passes in good position in to the stomach. There is a right internal jugular line. The tip of the catheter is seen at the superior vena cava. The lungs again show bilateral interstitial infiltrates which have slightly progressed compared to the prior examination. No effusions or pneumothoraces are identified. IMPRESSION: 1. Lines and tubes in good position. 2. Worsened bilateral pulmonary infiltrates.
--- NOTE | 2017-10-09 20:06 | DI.VRAD_ITS ---
EXAM: XR Chest, 1 View CLINICAL HISTORY: 57 years old, female; Device placement; Other: Central line; Prior surgery; Patient HX: S/P cardiac arrest; Line placement; Additional info: Central line placement TECHNIQUE: Frontal view of the chest. COMPARISON: SC - PORTABLE CHEST ONE VIEW 2017-10-09 17:47 FINDINGS: Lungs: Diffuse interstitial and reticular opacities appear slightly worsened compared to the previous study. Slight increase in opacity at the left lung base. Pleural space: The right costophrenic angle is excluded. No significant pleural effusion. No pneumothorax. Heart: No focal pathology. No cardiomegaly. Mediastinum: Unremarkable. Bones/joints: Right humeral hardware is partially seen. Tubes, lines and devices: Endotracheal tube in satisfactory position. Nasogastric tube in the stomach. Right IJ central line projects over the proximal SVC. IMPRESSION: 1. Lines and tubes in satisfactory position. 2. Diffuse interstitial and reticular opacities appear slightly worsened compared to the previous study. 3. Slight increase in opacity at the left lung base. Dictated and Authenticated by: Shelley Comer MD. Ordering:SARAH GUZMAN MD
[2017-10-09] MEDS: LEVOFLOXACIN 750 MG/150 ML BAG 150 MG IVPB (20:09)
--- NOTE | 2017-10-11 11:15 | NUR.NOTE ---
Nursing Note: 2nd bottle of propofol given to ems for transport. pt bottle almost empty before leaving. levaphed. vancomycin, levaquin running upon discharge
== END 2017-10-09 21:21 | disposition short-term general hospital (02) ==
PROVIDERS: Physician Assistant; Emergency Provider Student in an Organized Health Care Education/Training Program; PCP Family Medicine
DX: R09.2 Respiratory arrest (principal); R00.1 Bradycardia, unspecified; E87.2 Acidosis; R65.21 Severe sepsis with septic shock; R91.8 Other nonspecific abnormal finding of lung field; R40.2432 Glasgow coma scale score 3-8, at arrival to emergency department; I10 Essential (primary) hypertension; J44.9 Chronic obstructive pulmonary disease, unspecified; F17.210 Nicotine dependence, cigarettes, uncomplicated
CPT/HCPCS: 31500; 36556; 51702; 71045; 71275; 80053; 80076; 80307; 82805; 93005; 94640; 96361; 96365; 96366; 96368; 96375; 96376; 99291; 36600; 70450; 72125; 80320; 80329; 81003; 81015; 83605; 83735; 84484; 85025; 87086; 93010; J1956; J2543; J3490; J7613; J7620

== ENCOUNTER 2017-10-28 17:26 | Emergency (ER) | payer MEDICAID, SELFPAY ==
[2017-10-28] VITALS (20 sets, daily range): BP systolic 135–166; BP diastolic 67–91; PULSE 94–119; RESP 4–30; TEMP 36.8–37.1; O2SAT 91–97
--- NOTE | 2017-10-28 17:39 | ED.GENADUL ---
Disposition Clinical Impression: COPD exacerbation Disposition: HOME Condition: Improving Instructions: COPD (Chronic Obstructive Pulmonary Disease) (ED) Additional Instructions: You were offered admission to the hospital which you have declined. You may change your mind and return for reevaluation at any point. Continue medications including prednisone as previously prescribed. Hold your Xanax today. Return to the emergency department if you have recurrent difficulty breathing, or develop any new acute concerns. Medical Decision Making - Lab Data Laboratory Results - last 24 hr 10/28/17 10/28/17 10/28/17 17:45 17:45 17:45 WBC 19.46 H RBC 4.25 Hgb 13.8 Hct 40.7 MCV 95.8 H MCH 32.5 MCHC 33.9 RDW 14.5 Plt Count 380 D MPV 9.2 Immature Gran % 1.1 Neutrophils % 79.4 Lymphocytes % 13.8 Monocytes % 4.7 Eosinophils % 0.8 Basophils % 0.2 Absolute Neutrophils 15.45 H Absolute Lymphocytes 2.69 Absolute Monocytes 0.91 H Absolute Eosinophils 0.16 Absolute Basophils 0.04 PT 9.9 INR 1.0 APTT 26.3 Sodium 134 L Potassium 4.2 Chloride 96 L Carbon Dioxide 22.6 Anion Gap 15.4 H BUN 12 Creatinine 1.20 H Estimated GFR/1.73 m2 46.64 Glucose 109 H Calcium 9.8 Magnesium 1.5 L Total Bilirubin 0.5 AST 34 ALT 36 Alkaline Phosphatase 457 H Troponin I < 0.02 Total Protein 8.9 H Albumin 4.2 Results reviewed for labs ordered during visit: Yes - EKG Data -: EKG Interpreted by Me 10/28/17 17:42 Sinus tachycardia, rate is 119, there is poor, wandering baseline, no ST segment elevation noted - Radiology Data Radiology results: report reviewed, image reviewed - Medical Decision Making 57-year-old female with recent admission to tertiary [facility] for respiratory failure with cardiac arrest and required CPR. She was discharged home 2 days ago now presents emergency department in mild to moderate respiratory distress that developed over 2 days time. Associated with cough and production of green sputum. Differential diagnosis includes pneumonia, atelectasis, COPD exacerbation. Patient was placed on a shelter monitor, given parenteral steroids, inhaled DuoNeb therapy, referred for a laboratories and x-ray. Received and reviewed records from the [facility] for admission October 09 with discharge October 26. These note COPD exacerbation with cardiopulmonary arrest and successful resuscitation. Diagnostic studies: White blood cell count of 19, hematocrit 40, platelets 380. INR 1.0. Chemistries Sodium 134, potassium 4.2, chloride 96, bicarb 22, BUN 12, creatinine 1.2. Troponin negative. Magnesium 1.5. Initially tachycardic approximately 120, improved with treatment. Chest x-ray: Interstitial pattern of chronic changes, no large infiltrate noted. No effusion. I recommended and offered the patient admission which she outright refused. States she feels improved and wishes to be discharged home. She states that she has has someone to stay with her and is being seen by the visiting nurse tomorrow. I feel she demonstrates Decision-making capacity. Do not feel I can hold her here against her will. I called the patient at approximately 9:10 AM on October 29. She states she feels improved, much better. She has home health attending to her and will follow-up in clinic for recheck. History of Present Illness - General Chief complaint: SOB Stated complaint: DIFF BREATHING Time Seen by Provider: 10/28/17 17:32 Source: patient, family, RN notes reviewed Mode of arrival: wheelchair Limitations: no limitations - History of Present Illness Initial comments: 57-year-old female presents from home complaining of cough and shortness of breath. Patient states she recently had cardiac arrest ?2 with CPR for which she was admitted to [facility] and discharged home 2 days ago. Since that time so the gradual onset of persistent, moderate, generalized shortness of breath with associated cough and production of green sputum this morning. She did not note a fever. She noted slowly increasing and moderate shortness of breath. States been taking prednisone 40 mg. She does not take anticoagulants. She is not currently taking antibiotics. She denies worsening or ameliorating factors. No leg pain or swelling. -: days(s) Location: chest Radiation: non-radiation Quality: constant Consistency: constant Improves with: none Worsens with: none Associated Symptoms: cough - Related Data Albuterol Sulfate [Proair Hfa] 2 puff IH Q4H PRN PRN 01/01/16 Citalopram [CeleXA] 40 mg PO DAILY 01/03/16 RisperiDONE [risperDAL] 1.5 mg PO HS 01/03/16 Levothyroxine Sodium [Synthroid] 75 mcg PO DAILY #90 tablet 06/25/16 Magnesium Oxide [Mag-Ox 400] 800 mg PO BID #60 tab 06/25/16 Nicotine [Nicoderm Cq] 14 mg TD DAILY #30 patch 06/25/16 Polyethylene Glycol 3350 [Miralax] 17 gm PO BID PRN PRN packet 06/25/16 Epinephrine [Epipen 2-Janes] 0.3 mg IM PRN PRN 07/10/16 Budesonide/Formoterol Fumarate [Symbicort 160/4.5 Mcg Inhaler] 2 puff IH BID inh 07/16/16 Cyanocobalamin [Vitamin B-12] 1,000 mcg PO DAILY #100 tab 07/16/16 Cyclobenzaprine HCl 10 mg PO TID PRN 07/29/16 Disulfiram [Antabuse] 250 mg PO DAILY 07/29/16 Ibuprofen 800 mg PO TID 07/29/16 Omeprazole 40 mg PO DAILY 07/29/16 Umeclidinium Brm/Vilanterol Tr [Anoro Ellipta 62.5-25 Mcg INH] 1 each IH DAILY 07/29/16 TraZODone [Desyrel] 100 mg PO HS PRN 08/04/16 Zolpidem Tartrate [Ambien] 10 mg PO HS PRN PRN 08/04/16 Alprazolam [Xanax Xr] 3 mg PO DAILY tab-cap 10/28/16 Buspirone HCl 15 mg PO BID tab-cap 10/28/16 Gabapentin 100 mg PO TID 10/28/16 Calcium Citrate/Vitamin D2 [Clemente-Citrate Plus Vitamin D Tab] 1 tab PO DAILY 12/04/16 Gemfibrozil 600 mg PO BID 12/04/16 Pregabalin [Lyrica] 1 cap PO BID 12/04/16 Lisinopril 5 mg PO DAILY 12/06/16 Albuterol/Ipratropium [Duoneb Updraft] 3 ml UPD Q6H 30 Days #1 b 05/17/17 Famciclovir [Famvir] 500 mg PO Q8H 2 Days #6 tab 05/17/17 Meloxicam 15 mg PO DAILY #90 tab-cap 09/28/17 BuPROPion [Wellbutrin] 300 mg PO DAILY 10/06/17 Allergies Allergy/AdvReac Type Severity Reaction Status Date / Time venom-honey bee Allergy Severe Anaphylaxsi Unverified 10/06/17 06:41 s Review of Systems Other: 8 systems reviewed, otherwise negative Past Medical History - Past Medical History Medical history: COPD, GERD, hyperlipidemia, hypertension Hypothyroidism; Pulmonary Fibrosis Surgical history: , hysterectomy, other (right shoulder replacement) Family history: CAD/[place], cancer, diabetes - Social History Alcohol use: recent Drug use: marijuana General Exam - General Limitations: no limitations General appearance: alert, other (In mild distress) - Head Head exam: Present: atraumatic, normocephalic - Eye Eye exam: Present: PERRL, EOMI - ENT ENT exam: Present: mucous membranes dry, normal external ear exam - Neck Neck exam: Present: normal inspection, full ROM - Respiratory Respiratory exam: Present: rhonchi (Coarse rhonchi throughout with increased respiratory rate) - Cardiovascular Cardiovascular Exam: Present: normal rhythm, tachycardia - GI/Abdominal GI/Abdominal exam: Present: soft, other (Ecchymotic areas of anterior abdominal wall). Absent: distended, tenderness - Extremities Exam Extremities exam: Present: normal capillary refill - Neurological Exam Neurological exam: Present: alert, oriented X3 - Psychiatric Psychiatric exam: Present: normal affect, normal mood - Skin Skin exam: Present: warm, dry Course Vital Signs - 24 hr 10/28/17 17:33 Temperature 37.1 C Pulse 119 H Respiratory 25 H Rate Blood Pressure 166/91 Pulse Oximetry 94 L
--- NOTE | 2017-10-28 17:42 | ED.GENADUL_ITS ---
Disposition Clinical Impression: COPD exacerbation Disposition: HOME Condition: Improving Instructions: COPD (Chronic Obstructive Pulmonary Disease) (ED) Additional Instructions: You were offered admission to the hospital which you have declined. You may change your mind and return for reevaluation at any point. Continue medications including prednisone as previously prescribed. Hold your Xanax today. Return to the emergency department if you have recurrent difficulty breathing, or develop any new acute concerns. Medical Decision Making - Lab Data Laboratory Results - last 24 hr 10/28/17 10/28/17 10/28/17 17:45 17:45 17:45 WBC 19.46 H RBC 4.25 Hgb 13.8 Hct 40.7 MCV 95.8 H MCH 32.5 MCHC 33.9 RDW 14.5 Plt Count 380 D MPV 9.2 Immature Gran % 1.1 Neutrophils % 79.4 Lymphocytes % 13.8 Monocytes % 4.7 Eosinophils % 0.8 Basophils % 0.2 Absolute Neutrophils 15.45 H Absolute Lymphocytes 2.69 Absolute Monocytes 0.91 H Absolute Eosinophils 0.16 Absolute Basophils 0.04 PT 9.9 INR 1.0 APTT 26.3 Sodium 134 L Potassium 4.2 Chloride 96 L Carbon Dioxide 22.6 Anion Gap 15.4 H BUN 12 Creatinine 1.20 H Estimated GFR/1.73 m2 46.64 Glucose 109 H Calcium 9.8 Magnesium 1.5 L Total Bilirubin 0.5 AST 34 ALT 36 Alkaline Phosphatase 457 H Troponin I < 0.02 Total Protein 8.9 H Albumin 4.2 Results reviewed for labs ordered during visit: Yes - EKG Data -: EKG Interpreted by Me 10/28/17 17:42 Sinus tachycardia, rate is 119, there is poor, wandering baseline, no ST segment elevation noted - Radiology Data Radiology results: report reviewed, image reviewed - Medical Decision Making 57-year-old female with recent admission to tertiary [facility] for respiratory failure with cardiac arrest and required CPR. She was discharged home 2 days ago now presents emergency department in mild to moderate respiratory distress that developed over 2 days time. Associated with cough and production of green sputum. Differential diagnosis includes pneumonia, atelectasis, COPD exacerbation. Patient was placed on a property assessment monitor, given parenteral steroids, inhaled DuoNeb therapy, referred for a laboratories and x-ray. Received and reviewed records from the [facility] for admission October 09 with discharge October 26. These note COPD exacerbation with cardiopulmonary arrest and successful resuscitation. Diagnostic studies: White blood cell count of 19, hematocrit 40, platelets 380. INR 1.0. Chemistries Sodium 134, potassium 4.2, chloride 96, bicarb 22, BUN 12, creatinine 1.2. Troponin negative. Magnesium 1.5. Initially tachycardic approximately 120, improved with treatment. Chest x-ray: Interstitial pattern of chronic changes, no large infiltrate noted. No effusion. I recommended and offered the patient admission which she outright refused. States she feels improved and wishes to be discharged home. She states that she has has someone to stay with her and is being seen by the visiting nurse tomorrow. I feel she demonstrates Decision-making capacity. Do not feel I can hold her here against her will. I called the patient at approximately 9:10 AM on October 29. She states she feels improved, much better. She has home health attending to her and will follow-up in clinic for recheck. History of Present Illness - General Chief complaint: SOB Stated complaint: DIFF BREATHING Time Seen by Provider: 10/28/17 17:32 Source: patient, family, RN notes reviewed Mode of arrival: wheelchair Limitations: no limitations - History of Present Illness Initial comments: 57-year-old female presents from home complaining of cough and shortness of breath. Patient states she recently had cardiac arrest 2 with CPR for which she was admitted to [facility] and discharged home 2 days ago. Since that time so the gradual onset of persistent, moderate, generalized shortness of breath with associated cough and production of green sputum this morning. She did not note a fever. She noted slowly increasing and moderate shortness of breath. States been taking prednisone 40 mg. She does not take anticoagulants. She is not currently taking antibiotics. She denies worsening or ameliorating factors. No leg pain or swelling. -: days(s) Location: chest Radiation: non-radiation Quality: constant Consistency: constant Improves with: none Worsens with: none Associated Symptoms: cough - Related Data Albuterol Sulfate [Proair Hfa] 2 puff IH Q4H PRN PRN 01/01/16 Citalopram [CeleXA] 40 mg PO DAILY 01/03/16 RisperiDONE [risperDAL] 1.5 mg PO HS 01/03/16 Levothyroxine Sodium [Synthroid] 75 mcg PO DAILY #90 tablet 06/25/16 Magnesium Oxide [Mag-Ox 400] 800 mg PO BID #60 tab 06/25/16 Nicotine [Nicoderm Cq] 14 mg TD DAILY #30 patch 06/25/16 Polyethylene Glycol 3350 [Miralax] 17 gm PO BID PRN PRN packet 06/25/16 Epinephrine [Epipen 2-Janes] 0.3 mg IM PRN PRN 07/10/16 Budesonide/Formoterol Fumarate [Symbicort 160/4.5 Mcg Inhaler] 2 puff IH BID inh 07/16/16 Cyanocobalamin [Vitamin B-12] 1,000 mcg PO DAILY #100 tab 07/16/16 Cyclobenzaprine HCl 10 mg PO TID PRN 07/29/16 Disulfiram [Antabuse] 250 mg PO DAILY 07/29/16 Ibuprofen 800 mg PO TID 07/29/16 Omeprazole 40 mg PO DAILY 07/29/16 Umeclidinium Brm/Vilanterol Tr [Anoro Ellipta 62.5-25 Mcg INH] 1 each IH DAILY 07/29/16 TraZODone [Desyrel] 100 mg PO HS PRN 08/04/16 Zolpidem Tartrate [Ambien] 10 mg PO HS PRN PRN 08/04/16 Alprazolam [Xanax Xr] 3 mg PO DAILY tab-cap 10/28/16 Buspirone HCl 15 mg PO BID tab-cap 10/28/16 Gabapentin 100 mg PO TID 10/28/16 Calcium Citrate/Vitamin D2 [Clemente-Citrate Plus Vitamin D Tab] 1 tab PO DAILY 12/04 Gemfibrozil 600 mg PO BID 12/04/16 Pregabalin [Lyrica] 1 cap PO BID 12/04/16 Lisinopril 5 mg PO DAILY 12/06/16 Albuterol/Ipratropium [Duoneb Updraft] 3 ml UPD Q6H 30 Days #1 b 05/17/17 Famciclovir [Famvir] 500 mg PO Q8H 2 Days #6 tab 05/17/17 Meloxicam 15 mg PO DAILY #90 tab-cap 09/28/17 BuPROPion [Wellbutrin] 300 mg PO DAILY 10/06/17 Allergies Allergy/AdvReac Type Severity Reaction Status Date / Time venom-honey bee Allergy Severe Anaphylaxsi Unverified 10/06/17 06:41 s Review of Systems Other: 8 systems reviewed, otherwise negative Past Medical History - Past Medical History Medical history: COPD, GERD, hyperlipidemia, hypertension Hypothyroidism; Pulmonary Fibrosis Surgical history: , hysterectomy, other (right shoulder replacement) Family history: CAD/[place], cancer, diabetes - Social History Alcohol use: recent Drug use: marijuana General Exam - General Limitations: no limitations General appearance: alert, other (In mild distress) - Head Head exam: Present: atraumatic, normocephalic - Eye Eye exam: Present: PERRL, EOMI - ENT ENT exam: Present: mucous membranes dry, normal external ear exam - Neck Neck exam: Present: normal inspection, full ROM - Respiratory Respiratory exam: Present: rhonchi (Coarse rhonchi throughout with increased respiratory rate) - Cardiovascular Cardiovascular Exam: Present: normal rhythm, tachycardia - GI/Abdominal GI/Abdominal exam: Present: soft, other (Ecchymotic areas of anterior abdominal wall). Absent: distended, tenderness - Extremities Exam Extremities exam: Present: normal capillary refill - Neurological Exam Neurological exam: Present: alert, oriented X3 - Psychiatric Psychiatric exam: Present: normal affect, normal mood - Skin Skin exam: Present: warm, dry Course Vital Signs - 24 hr 10/28/17 17:33 Temperature 37.1 C Pulse 119 H Respiratory 25 H Rate Blood Pressure 166/91 Pulse Oximetry 94 L
[2017-10-28] MEDS: Albuterol/Ipratropium 3 ML UPD VIAL (17:52)
[2017-10-28] MEDS: methylPREDNISolone SUCC 125 MG VIAL IVP (17:56)
[2017-10-28 18:00] LABS: Abs Immature Grans 0.22 k/cumm (0.0-0.09); Absolute Basophil Count 0.04 k/cumm (0.0-0.2); Absolute Eosinophil Count 0.16 k/cumm (0.0-0.7); Absolute Lymphocyte Count 2.69 k/cumm (1.2-3.4); Absolute Monocyte Count 0.91 k/cumm (0.11-0.7); Basophils % 0.2; Eosinophils % 0.8; HCT 40.7 % (36.0-46.0); HGB 13.8 g/dL (12.0-15.5); Immature Grans % 1.1; Lymphocytes % 13.8; Mean Corp. HGB Concentration 33.9 g/dL (32.0-36.0); Mean Corpuscular Hemoglobin 32.5 pg (27.0-33.0); Mean Corpuscular Volume 95.8 fL (80-95); Mean Platelet Volume 9.2 fL (8.0-11.0); Monocytes % 4.7; Neutrophils % 79.4; Platelet Count 380 x1000/uL (130-400); RBC 4.25 m/cumm (4.00-5.20); RBC Distribution Width 14.5 % (11.7-14.6); White Blood Cell Count 19.46 k/cumm (4.4-10.8)
[2017-10-28 18:06] LABS: Absolute Neutrophil Count 15.45 k/cumm (1.2-6.7)
[2017-10-28 18:16] LABS: Prothrombin Time 9.9 sec (9.3-10.8)
--- NOTE | 2017-10-28 18:25 | DI.REPORT_ITS ---
SYMPTOM/DIAGNOSIS: RECENT HISTORY CARDIAC ARREST WITH CPR. CHEST PAIN, COUGH , SHORTNESS OF BREATH AP AND LATERAL CHEST: 10/28 Examination is compared with previous examinations including 10/09/17. There is prominence of pulmonary interstitial markings without focal consolidation. No pleural effusion seen. Findings are similar to findings noted on examination of 05/08/17 and may represent chronic change. CONCLUSION: No acute process. No change from 05/08/17.
[2017-10-28 18:30] LABS: PTT Activated 26.3 sec (21.0-31.4)
[2017-10-28 18:33] LABS: ALT 36 U/L (12-78); AST 34 U/L (15-37); Albumin 4.2 g/dL (3.4-5.0); Alkaline Phosphatase 457 U/L (46-116); Anion Gap 15.4 mmol/L (3-11); BUN 12 mg/dL (7-18); Bilirubin, Total 0.5 mg/dL (0.2-1.0); CO2 22.6 mmol/L (21.0-32.0); Calcium 9.8 mg/dL (8.5-10.1); Chloride 96 mmol/L (98-107); Estimated GFR 46.64 (mL/min/1.73m2); Glucose 109 mg/dL (70-100); Magnesium 1.5 mg/dL (1.8-2.4); Potassium 4.2 mmol/L (3.5-5.1); Sodium 134 mmol/L (136-145); Total Protein 8.9 g/dL (6.4-8.2)
[2017-10-28 18:38] LABS: Troponin I < 0.02 ng/mL (0.00-0.06)
--- NOTE | 2017-10-28 18:52 | DI.VRAD_ITS ---
EXAM: XR Chest, 2 Views CLINICAL HISTORY: 57 years old, female; Pain and signs and symptoms; Shortness of breath; Chest pain; On breathing; Patient HX: Recent cardiac arrest with cpr, chest pain, cough, SOB. TECHNIQUE: Frontal and lateral views of the chest. COMPARISON: [place] - PORTABLE CHEST ONE VIEW 10/09/2017 7:55 PM FINDINGS: Lungs: Bilateral interstitial pattern of chronic changes in the lungs. Pleural space: Unremarkable. No pneumothorax. Heart: Unremarkable. No cardiomegaly. Mediastinum: Unremarkable. Bones/joints: Orthopedic hardware within right shoulder. IMPRESSION: Bilateral interstitial pattern of chronic changes. No large infiltrates or effusions. Dictated and Authenticated by: Steven Alberts MD. Ordering:BETZY FAJARDO MD
[2017-10-28] MEDS: Albuterol/Ipratropium 3 ML UPD VIAL UPD (19:04)
--- NOTE | 2017-10-29 08:42 | PDOC.ERCMPRO ---
Care Management Progress Note 10/29-Dr. Pollock requested that Goldie be seen by her PCP (Fide) in one week for COPD. Called Goldie this morning and she states she feels much better. Discussed PCP appt. Goldie stated that she was calling Dr. Elizalde's office to schedule an appt for next week. Goldie has my contact information if further assistance is needed.
== END 2017-10-28 19:30 | disposition home or self-care (01) ==
PROVIDERS: Emergency Provider Emergency Medicine; PCP Family Medicine
DX: J44.1 Chronic obstructive pulmonary disease with (acute) exacerbation (principal); Z53.29 Procedure and treatment not carried out because of patient's decision for other reasons; R00.0 Tachycardia, unspecified; I10 Essential (primary) hypertension; F17.210 Nicotine dependence, cigarettes, uncomplicated
CPT/HCPCS: 36415; 80053; 93005; 94640; 96374; 99285; 71046; 83735; 84484; 85025; 85610; 85730; 93010; J2930; J7620

== ENCOUNTER 2017-10-29 15:56 | Outpatient (REF) | payer MEDICAID, SELFPAY ==
[2017-10-29 16:17] LABS: Anion Gap 19.1 mmol/L (3-11); BUN 13 mg/dL (7-18); CO2 18.9 mmol/L (21.0-32.0); CREATININE 0.97 mg/dL (0.55-1.02); Calcium 9.8 mg/dL (8.5-10.1); Chloride 95 mmol/L (98-107); Estimated GFR 59.62 (mL/min/1.73m2); Glucose 124 mg/dL (70-100); Potassium 5.1 mmol/L (3.5-5.1); Sodium 133 mmol/L (136-145)
== END 2017-10-29 15:57 ==
LOC: LBN 15:56
PROVIDERS: PCP Family Medicine; Visit Provider Family Medicine
DX: N17.9 Acute kidney failure, unspecified (principal); J96.21 Acute and chronic respiratory failure with hypoxia
CPT/HCPCS: 80051; 82947; 84520; 82310; 82565

== ENCOUNTER 2017-11-25 14:01 | Outpatient (CLI) | payer MEDICAID, SELFPAY ==
--- NOTE | 2017-11-25 09:41 | DI.RAD_ITS ---
SYMPTOMS/DIAGNOSIS: FRACTURE LEFT SHOULDER: AP and Y projections are provided. A minimally displaced fracture of the proximal metaphysis and greater tuberosity is demonstrated.
== END 2017-11-25 14:21 ==
PROVIDERS: PCP Family Medicine; Visit Provider Physician Assistant Surgical
DX: S42.252A Displaced fracture of greater tuberosity of left humerus, initial encounter for closed fracture (principal); Y99.9 Unspecified external cause status
CPT/HCPCS: 73030

== ENCOUNTER 2018-01-06 10:10 | Outpatient (CLI) | payer MEDICAID, SELFPAY ==
--- NOTE | 2018-01-06 09:02 | DI.RAD_ITS ---
SYMPTOM/DIAGNOSIS: INJURY, PAIN LEFT SHOULDER: A comminuted fracture of the proximal humerus is demonstrated and when compared with the prior study of 11/25, there has been no interval change in the apposition or alignment of the fracture fragments.
== END 2018-01-06 10:30 ==
PROVIDERS: PCP Family Medicine; Visit Provider Physician Assistant Surgical
DX: M25.512 Pain in left shoulder (principal); S42.252D Displaced fracture of greater tuberosity of left humerus, subsequent encounter for fracture with routine healing
CPT/HCPCS: 73030

== ENCOUNTER 2018-04-12 14:05 | Emergency (ER) | payer MEDICAID, SELFPAY ==
[2018-04-12] VITALS (18 sets, daily range): BP systolic 85–112; BP diastolic 59–75; PULSE 95–110; RESP 15–27; TEMP 37.1; O2SAT 90–97
--- NOTE | 2018-04-12 14:34 | W.ED.GENAD ---
Discharge Plan Disposition Patient Disposition: HOME Condition: Stable Discharge Details Chief Complaint: SOB Clinical Impression: COPD exacerbation Reason For Visit: ALEXA Primary Care Provider: Remy Ortega ED Provider: Angel Baptiste Home Meds and New Rx's Prescriptions: Continued albuterol sulfate [ProAir HFA] 8.5 GM HFA aerosol inhaler 2 puff Inhalation Q4H PRN PRNRF: 0 citalopram 40 MG tablet 40 mg PO DAILY RF: 0 risperidone [Risperdal] 1 MG tablet 1.5 mg PO HS RF: 0 ibuprofen 800 MG tablet 800 mg PO TID RF: 0 omeprazole 20 MG capsule,delayed release(DR/EC) 40 mg PO DAILY RF: 0 trazodone 100 MG tablet 100 mg PO HS PRNRF: 0 zolpidem [Ambien] 5 MG tablet 10 mg PO HS PRN PRNRF: 0 levothyroxine [Synthroid] 75 MCG tablet 75 mcg PO DAILY Qty: 90 RF: 0 polyethylene glycol 3350 17 GM powder in packet 17 gm PO BID PRN PRNRF: 0 magnesium oxide 400 MG tablet 800 mg PO BID Qty: 60 RF: 2 calcium citrate-vitamin D2 [Clemente-Citrate] 1 EACH tablet 1 tab PO DAILY RF: 0 pregabalin [Lyrica] 100 MG capsule 1 cap PO BID RF: 0 epinephrine [EpiPen 2-Janes] 0.3 MG/0.3 ML auto-injector 0.3 mg IM PRN PRNRF: 0 budesonide-formoterol [Symbicort] 60 PUFF HFA aerosol inhaler 2 puff Inhalation BID RF: 0 ipratropium-albuterol 3 ML solution for nebulization 3 ml UPD Q6H 30 Days Qty: 1 RF: 1 bupropion HCl [Wellbutrin] 100 MG tablet 300 mg PO DAILY RF: 0 Discharge Instructions Instructions: COPD (Chronic Obstructive Pulmonary Disease) (ED) Additional Instructions: follow up with your primary care provider in 1-2 weeks if you feel your symptoms are worsening return to the emergency department for reevaluation Discharge Data Discharge Date/Time-TO BE ENTERED AT DEPARTURE: 04/12/18 16:45 Medical Decision Making <Derrell Martinez NP - Last Filed: 04/14/18 21:24> Patient presenting the emergency department for chief complaint of shortness of breath and some chest pain. She states that this is been going on since previous to her admission to [facility] for pneumonia. Patient denies any new fever or chills and states that she finished up her antibiotic which she is unsure of what it was, and symptoms have not improved. Patient does state history of COPD, unknown rare lung disorder, with need of home O2. Patient states that she has been taking her medication as prescribed just not feeling better and having more weakness today. Patient does state that she had a couple of beers today. Physical exam shows diffuse rhonchi throughout all lung kern, diminished lung sounds in the lower bases, normal cardiac examination, patient appears slightly intoxicated but not severely impaired at this time. Plan to check labs, chest x-ray, d-dimer, EKG, previous records from admission, VBG. Pending results patient given Solu-Medrol and DuoNeb. Reviewed patient's course at [facility] and patient was on Levaquin for bilateral infiltrates and COPD exacerbation. Patient sent home on steroids. Review of VBG shows no respiratory abnormality. CBC shows leukocytosis but compared to previous labs is lower than seen other times. Chest x-ray shows no evidence of acute pneumonia but more of chronic COPD type changes. D-dimer negative otherwise unremarkable labs. Patient reassessed and continued to have moderate wheezes so second DuoNeb ordered. Pending reassessment after second treatment and consideration of admission versus discharge for COPD exacerbation patient care was transferred to Dr. Baptiste for disposition, further treatment and stabilization as needed. HPI <Derrell Martinez NP - Last Filed: 04/14/18 21:24> General Mode of arrival: EMS. Date/Time Provider Initiated Documentation: 04/12/18 14:20. Limitations to Documentation: no limitations. Information obtained by: patient and RN notes reviewed. History of Present Illness 57 year old F presents to the emergency department with the chief complaint of Chest pain, shortness of breath, described as moderate, with intensity rated at 6. Quality is described as aching, and is localized to the chest. Patient reports no radiation. Patient started experiencing this week(s) (2) and it has been constant. No relieving factors improve symptom(s), Patient did receive the following treatments prior to arrival, none Related Data Home Medications Medication Instructions Recorded Confirmed albuterol sulfate [ProAir HFA] 2 puff INHALATION Q4H PRN PRN 01/01/16 01/06/18 citalopram 40 mg PO DAILY 01/03/16 01/06/18 risperidone [Risperdal] 1.5 mg PO HS 01/03/16 01/06/18 levothyroxine [Synthroid] 75 mcg PO DAILY #90 tab 06/25/16 01/06/18 magnesium oxide 800 mg PO BID #60 tab 06/25/16 01/06/18 polyethylene glycol 3350 17 gm PO BID PRN PRN packet 06/25/16 01/06/18 epinephrine [EpiPen 2-Janes] 0.3 mg IM PRN PRN 07/10/16 01/06/18 budesonide-formoterol [Symbicort] 2 puff INHALATION BID inh 07/16/16 01/06/18 ibuprofen 800 mg PO TID 07/29/16 01/06/18 omeprazole 40 mg PO DAILY 07/29/16 01/06/18 trazodone 100 mg PO HS PRN 08/04/16 01/06/18 zolpidem [Ambien] 10 mg PO HS PRN PRN 08/04/16 01/06/18 calcium citrate-vitamin D2 1 tab PO DAILY 12/04/16 01/06/18 [Clemente-Citrate] pregabalin [Lyrica] 1 cap PO BID 12/04/16 01/06/18 ipratropium-albuterol 3 ml UPD Q6H 30 Days #1 b 05/17/17 01/06/18 bupropion HCl [Wellbutrin] 300 mg PO DAILY 10/06/17 01/06/18 Previous Rx's Medication Instructions Recorded levothyroxine [Synthroid] 75 mcg PO DAILY #90 tab 06/25/16 magnesium oxide 800 mg PO BID #60 tab 06/25/16 polyethylene glycol 3350 17 gm PO BID PRN PRN packet 06/25/16 budesonide-formoterol [Symbicort] 2 puff INHALATION BID inh 07/16/16 ipratropium-albuterol 3 ml UPD Q6H 30 Days #1 b 05/17/17 Allergies Allergy/AdvReac Type Severity Reaction Status Date / Time venom-honey bee Allergy Severe Anaphylaxsi Verified 01/06/18 08:54 s General Stated Complaint: SOB ADALBERTO: 3 Review of Systems <Derrell Martinez NP - Last Filed: 04/14/18 21:24> Constitutional Denies chills, Denies fever(s) and Denies malaise Cardiovascular Reports as per HPI, Reports chest pain, Denies chest pain with activity, Denies syncope, Denies irregular heart rhythm, Denies palpitations, Reports dyspnea and Reports dyspnea on exertion Respiratory Denies cough, Denies hemoptysis, Reports dyspnea and Reports dyspnea on exertion Gastrointestinal Denies abdominal pain, Denies nausea and Denies vomiting Neurologic Denies syncope Psychiatric Denies anxiety Endocrine Denies palpitations PFSH <Derrell Martinez NP - Last Filed: 04/14/18 21:24> Medical History Anxiety disorder (Acute) Respiratory failure (Acute) COPD exacerbation (Acute) Hypothyroidism (acquired) (Acute) Pulmonary histiocytosis x (Acute) Bipolar disorder (Acute) Nicotine dependence with current use (Acute) Social History adopted: Yes caregiver/support person: No foster care: Yes household members: none housing: apartment marital status details: still friends with ex- lives independently: Yes number of children: 1 number of grandchildren: 1 highest education level completed: 11th grade service: No usp: No current occupational status: disabled pets and animals: No leisure activities: other Hx Recent Travel: No well-balanced diet: rarely or never caffeine: Yes high-fat food intake: 3 or more times/day daily servings fruits/ve-1 daily servings of milk/calcium: 0-1 eating out: 1-3 times/week reads food labels: seldom or never what type of physical activity do you participate in: none Smoking and Tabacco status: Current every day Tobacco: How many years used: 40 alcohol intake: current counseling given: Yes details: says she is in AA and talks to her sponsor daily, drinking at 9 am @ visit substance use type: marijuana What is your relationship status?: How often do you get together with friends or relatives?: three or more times per week Panel score (0-1 are the most socially isolated patients): 1 Exam <Derrell Martinez NP - Last Filed: 04/14/18 21:24> Const General: cooperative, healthy appearing, comfortable, no acute distress, not diaphoretic and not ill appearing Nutritional Appearance: average body habitus Orientation: alert, awake and oriented x3 Limitations: mental status not altered Neck Neck: normal visual inspection, full ROM, trachea midline, supple and no anterior neck swelling Thyroid: thyroid normal Carotids: normal carotid upstroke and no bruits Chest Chest: normal inspection of the chest Resp Effort & Inspection: normal respiratory effort, able to speak in complete sentences and no audible wheezes Auscultation: diminished lung sounds bilaterally in the lower lung kern and rhonchi (difuse) Cardio Jugular venous pressure: no JVD Palpation: normal PMI Rate: regular rate Rhythm: regular rhythm Heart Sounds: S1 normal, S2 normal, no click, no gallops, no murmurs and no rubs Bruits: no abdominal aortic bruits and no carotid bruits Pulses: radial pulses present bilaterally 2+ GI Inspection: normal to inspection Palpation: soft, no aortic enlargement, no pulsatile masses and nontender Auscultation: normal bowel sounds Skin General skin exam: no rashes or lesions noted Neuro General: alert, awake, oriented x3, tone normal and moves all extremities Course <Derrell Martinez NP - Last Filed: 04/14/18 21:24> Vital Signs Temperature 37.1 C 04/12/18 14:17 Pulse 95 H 04/12/18 14:17 Respiratory Rate 16 04/12/18 14:17 Blood Pressure 112/75 04/12/18 14:17 Pulse Oximetry 94 L 04/12/18 14:17 Temperature 37.1 C 04/12/18 14:17 Temperature Source Skin 04/12/18 14:17 Pulse 95 H 04/12/18 14:17 Respiratory Rate 18 04/12/18 14:22 Respiratory Effort Non-Labored 04/12/18 14:22 Respiratory Depth Normal 04/12/18 14:22 Respiratory Pattern Normal 04/12/18 14:22 Blood Pressure 112/75 04/12/18 14:17 Blood Pressure Position Sitting 04/12/18 14:17 Pulse Oximetry 94 L 04/12/18 14:17 Oxygen Delivery Method Nasal Cannula 04/12/18 14:17 Oxygen Flow Rate 3 04/12/18 14:17 Sign Out <Derrell Martinez NP - Last Filed: 04/14/18 21:24> Sign Out Data: Sign Out Comment: Patient transferred to Dr. Baptiste pending reassessment of respiratory status after second DuoNeb and disposition for concern of COPD exacerbation Last updated by Derrell Martinez NP at 04/12/18 16:05 Post-Handoff Eval: pt signed out to me pending second duoneb. Pt recently hospitalized in March for copd/pna. IS on chronic o2. She has received duonebs here and feels much better, ambulating on her home o2 without significant distress or hypoxia. She is already on oral steroids and given no increased cough on my hx/physical do not feel abx indicated at this time. Will d/c and advised f/u with pcp and return precautions given
[2018-04-12] MEDS: methylPREDNISolone SUCC 125 MG VIAL IVP (14:55)
[2018-04-12] MEDS: Albuterol/Ipratropium 3 ML UPD VIAL UPD ×2 (14:55→16:30)
[2018-04-12 15:00] LABS: BE (Venous) 0.6 mmol/L (-3-3); HCO3 (Venous) 26 mmol/L (22-28); O2 Sat (Venous) 83 % (70-80); TCO2 (Venous) 23 mmol/L (22-29); pCO2 (Venous) 42 mm/Hg (34-47); pO2 (Venous) 48 mm/Hg (28-44)
[2018-04-12 15:01] LABS: Abs Immature Grans 0.19 k/cumm (0.0-0.09); Absolute Basophil Count 0.01 k/cumm (0.0-0.2); Absolute Eosinophil Count 0.04 k/cumm (0.0-0.7); Absolute Lymphocyte Count 0.91 k/cumm (1.2-3.4); Absolute Monocyte Count 0.49 k/cumm (0.11-0.7); Absolute Neutrophil Count 13.25 k/cumm (1.2-6.7); Basophils % 0.1; Eosinophils % 0.3; HCT 40.4 % (36.0-46.0); HGB 12.9 g/dL (12.0-15.5); Immature Grans % 1.3; Lymphocytes % 6.1; Mean Corp. HGB Concentration 31.9 g/dL (32.0-36.0); Mean Corpuscular Hemoglobin 30.7 pg (27.0-33.0); Mean Corpuscular Volume 96.2 fL (80-95); Mean Platelet Volume 9.6 fL (8.0-11.0); Monocytes % 3.3; Neutrophils % 88.9; Platelet Count 159 x1000/uL (130-400)
[2018-04-12 15:18] LABS: ETHANOL BLOOD 65.1 mg/dL (<3)
--- NOTE | 2018-04-12 15:19 | DI.RAD_ITS ---
SYMPTOMS/DIAGNOSIS: SHORTNESS OF BREATH PA AND LATERAL CHEST: Comparison is made with October,. The heart size is normal. The lung bases are not well penetrated on the AP views. The lungs appear clear on the lateral views. No infiltrate, effusion or pulmonary edema is seen. There is a stable mild upper thoracic compression fracture. IMPRESSION: No acute abnormality.
[2018-04-12 15:26] LABS: PTT Activated 21.7 sec (21.0-31.4); Prothrombin Time 9.6 sec (9.3-11.0)
[2018-04-12 15:27] LABS: ALT 38 U/L (12-78); AST 33 U/L (15-37); Albumin 3.3 g/dL (3.4-5.0); Alkaline Phosphatase 111 U/L (46-116); Anion Gap 12.7 mmol/L (3-11); BUN 20 mg/dL (7-18); Bilirubin, Total 0.4 mg/dL (0.2-1.0); CO2 26.3 mmol/L (21.0-32.0); CREATININE 0.98 mg/dL (0.55-1.02); Calcium 8.7 mg/dL (8.5-10.1); Chloride 95 mmol/L (98-107); Estimated GFR 58.92 (mL/min/1.73m2); Glucose 175 mg/dL (70-100); Magnesium 2.1 mg/dL (1.8-2.4); NT-proBNP 106 pg/mL; Potassium 3.8 mmol/L (3.5-5.1); Sodium 134 mmol/L (136-145); Total Protein 7.1 g/dL (6.4-8.2)
[2018-04-12 15:39] LABS: Troponin I < 0.02 ng/mL (0.00-0.06)
--- NOTE | 2018-04-12 16:30 | NUR.NOTE ---
Nursing Note: Patient requesting to go home, with or without results. Explained to pt that her chief complaints were significant and requires monitoring until results of labs and DI. Patient states she feels better. Trial ambulated patient in [place] about 50 feet, usually has crutch at home. Utilized walker and had no SOB or weakness noted. Pt admits she feels better than before she came in.
== END 2018-04-12 16:45 | disposition home or self-care (01) ==
LOC: ER 16:49
PROVIDERS: Nurse Practitioner Family; Emergency Provider Emergency Medicine; PCP Family Medicine
DX: J44.1 Chronic obstructive pulmonary disease with (acute) exacerbation (principal); Z99.11 Dependence on respirator [ventilator] status
CPT/HCPCS: 36415; 80053; 82805; 87040; 96374; 99284; 71046; 80320; 83735; 83880; 84484; 85025; 85379; 85610; 85730; J2930; J7620

== ENCOUNTER 2018-04-15 19:01 | Emergency (ER) | payer MEDICAID, SELFPAY ==
[2018-04-15] VITALS (27 sets, daily range): BP systolic 87–121; BP diastolic 53–68; PULSE 96–108; RESP 12–26; TEMP 36.5; O2SAT 87–98
--- NOTE | 2018-04-15 19:25 | W.ED.GENAD ---
Discharge Plan Disposition Patient Disposition: HOME Condition: Good Discharge Details Chief Complaint: Chest Pain Clinical Impression: Pneumonitis, COPD exacerbation Reason For Visit: CARLOEX Primary Care Provider: Remy Ortega ED Provider: Angel Baptiste Home Meds and New Rx's Prescriptions: New levofloxacin 750 mg tablet 750 mg PO DAILY Qty: 7 RF: 0 Continued ProAir HFA 8.5 GM HFA aerosol inhaler 2 puff Inhalation Q4H PRN PRNRF: 0 citalopram 40 MG tablet 40 mg PO DAILY RF: 0 risperidone [Risperdal] 1 MG tablet 1.5 mg PO HS RF: 0 ibuprofen 800 MG tablet 800 mg PO TID RF: 0 omeprazole 20 MG capsule,delayed release(DR/EC) 40 mg PO DAILY RF: 0 trazodone 100 MG tablet 100 mg PO HS PRNRF: 0 zolpidem [Ambien] 5 MG tablet 10 mg PO HS PRN PRNRF: 0 levothyroxine [Synthroid] 75 MCG tablet 75 mcg PO DAILY Qty: 90 RF: 0 polyethylene glycol 3350 17 GM powder in packet 17 gm PO BID PRN PRNRF: 0 magnesium oxide 400 MG tablet 800 mg PO BID Qty: 60 RF: 2 Carlo-Citrate 1 EACH tablet 1 tab PO DAILY RF: 0 Lyrica 100 MG capsule 1 cap PO BID RF: 0 epinephrine [EpiPen 2-Janes] 0.3 MG/0.3 ML auto-injector 0.3 mg IM PRN PRNRF: 0 Symbicort 60 PUFF HFA aerosol inhaler 2 puff Inhalation BID RF: 0 ipratropium-albuterol 3 ML solution for nebulization 3 ml UPD Q6H 30 Days Qty: 1 RF: 1 bupropion HCl [Wellbutrin] 100 MG tablet 300 mg PO DAILY RF: 0 Discharge Instructions Instructions: Chronic Bronchitis (ED) Additional Instructions: You need to take your medications as prescribed. You should follow up with your primary care provider within 1 week for follow up if you feel you are significantly worsening or feel more ill return to the emergency department for reevaluation Medical Decision Making 57 yo female with hx of copd on home o2, bipolar, alcoholism, who comes in with pleuritic chest cheryl for one week. Denies pain with exertion, radiation of pain or n/v. She is sleepy during my exam and smells of alcohol and states had 2 beers today, though ems states people she was with said she had at least 6 beers. She has no focal neuro deficits. EKg unchanged. Will send troponin though pain sounds more pleuritic. Will obtain cta as she has well score that is moderate. She is stable on her home o2 and has good air movement so doubt copd exacerbation pt remains stable, has been sleeping for 2 hours or so now without symptoms. Lab work shows no acute findings, troponin negative and given 1 week of pain do not feel repeat troponin indicated. CT shows no PE, does show patchy infiltrates on the right which xiomy had since she was at [facility]. I do not suspect hcap given her well appearance, no fevers and so do not feel IV abx indicated. I will cover her for copd with levofloxacin and advised that she needs to take her meds as prescribed as she states she hasn't been taking them. She understands she needs to take them and that she needs to follow up with her pcp within a week for follow up and return if worsening. She was also educated on importance of limiting her alcohol intake Differential Diagnosis copd, pna, pe, alcoholism Imaging Data Radiologic Study: Attestation: I personally reviewed and interpreted this imaging study as follows: Imaging: CT Scan Radiologist's impression: IMPRESSION: 1. No evidence for pulmonary embolism. 2. Underlying pulmonary emphysema with patchy infiltrates within the right lower lobe. These are somewhat nodular. There also some mild opacities within the right upper lobe. Surveillance after appropriate antibiotic therapy should be considered. 3. Cholelithiasis. Lab Data Lab results reviewed: Yes I reviewed the patient's lab results. ECG Data Attestation: I personally reviewed and interpreted this ECG (s) as follows: Prior ECG tracings: not available for review Interpretation: sinus tachycardia, rate of 107, pr 148, no acute st t wave ischemic findings HPI General Mode of arrival: EMS. Date/Time Provider Initiated Documentation: 04/15/18 19:09. Limitations to Documentation: no limitations. Information obtained by: patient. History of Present Illness 57 year old F presents to the emergency department with the chief complaint of chest pain, described as moderate, with intensity rated at 4. Quality is described as aching, and is localized to the chest. Patient reports no radiation. Patient started experiencing this week(s) (1) and it has been intermittent. Other factors that worsen symptoms (deep breaths) . Patient notes no other symptoms.. Patient did receive the following treatments prior to arrival, none Related Data Home Medications Medication Instructions Recorded Confirmed ProAir HFA 2 puff INHALATION Q4H PRN PRN 01/01/16 04/15/18 citalopram 40 mg PO DAILY 01/03/16 04/15/18 risperidone [Risperdal] 1.5 mg PO HS 01/03/16 04/15/18 levothyroxine [Synthroid] 75 mcg PO DAILY #90 tab 06/25/16 04/15/18 magnesium oxide 800 mg PO BID #60 tab 06/25/16 04/15/18 polyethylene glycol 3350 17 gm PO BID PRN PRN packet 06/25/16 04/15/18 epinephrine [EpiPen 2-Janes] 0.3 mg IM PRN PRN 07/10/16 04/15/18 Symbicort 2 puff INHALATION BID inh 07/16/16 04/15/18 ibuprofen 800 mg PO TID 07/29/16 04/15/18 omeprazole 40 mg PO DAILY 07/29/16 04/15/18 trazodone 100 mg PO HS PRN 08/04/16 04/15/18 zolpidem [Ambien] 10 mg PO HS PRN PRN 08/04/16 04/15/18 Carlo-Citrate 1 tab PO DAILY 12/04/16 04/15/18 Lyrica 1 cap PO BID 12/04/16 04/15/18 ipratropium-albuterol 3 ml UPD Q6H 30 Days #1 b 05/17/17 04/15/18 bupropion HCl [Wellbutrin] 300 mg PO DAILY 10/06/17 04/15/18 levofloxacin 750 mg PO DAILY #7 tab 04/15/18 Previous Rx's Medication Instructions Recorded levothyroxine [Synthroid] 75 mcg PO DAILY #90 tab 06/25/16 magnesium oxide 800 mg PO BID #60 tab 06/25/16 polyethylene glycol 3350 17 gm PO BID PRN PRN packet 06/25/16 Symbicort 2 puff INHALATION BID inh 07/16/16 ipratropium-albuterol 3 ml UPD Q6H 30 Days #1 b 05/17/17 levofloxacin 750 mg PO DAILY #7 tab 04/15/18 Allergies Allergy/AdvReac Type Severity Reaction Status Date / Time venom-honey bee Allergy Severe Anaphylaxsi Verified 04/15/18 19:25 s General Stated Complaint: Chest Pain ADALBERTO: 3 Review of Systems Review of Systems All systems reviewed & are unremarkable except as noted in HPI and below Constitutional Denies chills and Denies fever(s) ENT Denies change in voice Cardiovascular Denies dyspnea Respiratory Denies dyspnea Gastrointestinal Denies abdominal pain, Denies nausea and Denies vomiting Genitourinary Denies dysuria Integumentary/Breasts Denies rash [facility] Medical History Anxiety disorder (Acute) Respiratory failure (Acute) COPD exacerbation (Acute) Hypothyroidism (acquired) (Acute) Pulmonary histiocytosis x (Acute) Bipolar disorder (Acute) Nicotine dependence with current use (Acute) Social History adopted: Yes caregiver/support person: No foster care: Yes household members: none housing: apartment marital status details: still friends with ex- lives independently: Yes number of children: 1 number of grandchildren: 1 highest education level completed: 11th grade service: No skilled nursing: No current occupational status: disabled pets and animals: No leisure activities: other Hx Recent Travel: No well-balanced diet: rarely or never caffeine: Yes high-fat food intake: 3 or more times/day daily servings fruits/ve-1 daily servings of milk/calcium: 0-1 eating out: 1-3 times/week reads food labels: seldom or never what type of physical activity do you participate in: none Smoking and Tabacco status: Current every day Tobacco: How many years used: 40 alcohol intake: current counseling given: Yes details: says she is in AA and talks to her sponsor daily, drinking at 9 am @ visit substance use type: marijuana What is your relationship status?: How often do you get together with friends or relatives?: three or more times per week Panel score (0-1 are the most socially isolated patients): 1 Exam Const General: no acute distress Orientation: alert HENMT Head: normal to inspection Ears: external ears normal General nose exam: external nose normal Mouth: moist mucous membranes Eyes General: appearance normal, both eyes and all related structures Neck Neck: normal visual inspection Resp Effort & Inspection: normal respiratory effort and able to speak in complete sentences Cardio Rate: regular rate Skin General skin exam: no rashes or lesions noted Neuro General: alert and oriented x3 Extrem General: normal to inspection Psych Mental Status: mental status grossly normal Course Vital Signs Temperature 36.5 C 04/15/18 19:07 Pulse 108 H 04/15/18 19:07 Respiratory Rate 20 04/15/18 19:07 Blood Pressure 121/66 04/15/18 19:07 Pulse Oximetry 92 L 04/15/18 19:07 Temperature 36.5 C 04/15/18 19:07 Temperature Source Temporal Artery Scan 04/15/18 19:07 Pulse 108 H 04/15/18 19:07 Respiratory Rate 20 04/15/18 19:07 Respiratory Effort 04/15/18 19:07 Blood Pressure 121/66 04/15/18 19:07 Pulse Oximetry 92 L 04/15/18 19:07 Oxygen Delivery Method Room Air 04/15/18 19:07 Oxygen Flow Rate 0 04/15/18 19:07 Pain Level 6 04/15/18 19:07
[2018-04-15 19:47] LABS: PTT Activated 22.8 sec (21.0-31.4); Prothrombin Time 9.9 sec (9.3-11.0)
[2018-04-15 20:07] LABS: Abs Immature Grans 0.25 k/cumm (0.0-0.09); HCT 43.5 % (36.0-46.0); HGB 14.4 g/dL (12.0-15.5); Mean Corp. HGB Concentration 33.1 g/dL (32.0-36.0); Mean Corpuscular Hemoglobin 31.1 pg (27.0-33.0); Mean Platelet Volume 9.1 fL (8.0-11.0); Platelet Count 134 x1000/uL (130-400); RBC 4.63 m/cumm (4.00-5.20); RBC Distribution Width 16.3 % (11.7-14.6); White Blood Cell Count 12.64 k/cumm (4.4-10.8)
[2018-04-15 20:15] LABS: Absolute Eosinophil Count 0.13 k/cumm (0.0-0.7); Absolute Lymphocyte Count 4.04 k/cumm (1.2-3.4); Absolute Monocyte Count 0.25 k/cumm (0.11-0.7); Absolute Neutrophil Count 7.84 k/cumm (1.2-6.7); Atypical Lymphocytes % 9
[2018-04-15 20:16] LABS: Diff Comment Manual Differential; Macrocytosis 1+; Polychromasia Present; Stomatocytes 2+
[2018-04-15] MEDS: Omnipaque 350 MG/ML 100 ML BTL IJ (20:18)
--- NOTE | 2018-04-15 20:20 | DI.CT_ITS ---
SYMPTOM/DIAGNOSIS: PLEURITIC CHEST PAIN CT CHEST: CT scan of the chest was performed according to the pulmonary embolus protocol. Comparison chest CT scan is 10/09/17. There is no evidence of a pulmonary embolus. The thoracic aorta is of normal caliber. No aneurysmal dilatation seen. Heart size is within normal limits. No significant pericardial effusion seen. No evidence of right ventricular dysfunction present. No significant thoracic adenopathy is seen. No pleural effusion or pneumothorax is identified. The lungs show significant central lobular emphysematous change. There are nodular opacities seen in the right upper and right lower lobes. No focal consolidating infiltrates seen. The tracheobronchial tree appears grossly unremarkable. Degenerative changes are present in the spine. Upper abdominal images show cholelithiasis. There does appear to be some sclerosis or periosteal reaction at the inferior aspect of the sternum which may represent a healing fracture. There are again seen post surgical changes of a right shoulder replacement. The upper abdominal images show gallstones present. No biliary ductal dilatation seen. IMPRESSION: 1. No evidence of a pulmonary embolus, thoracic aortic dissection or aneurysm. 2. Nodular opacities seen in the right upper and lower lobes. This may represent an infectious pneumonic process. Please correlate clinically and follow up as clinically appropriate 3. Marked central lobular emphysematous changes. 4. Cholelithiasis.
[2018-04-15 20:26] LABS: ALT 43 U/L (12-78); AST 43 U/L (15-37); Albumin 3.2 g/dL (3.4-5.0); Alkaline Phosphatase 119 U/L (46-116); Anion Gap 11.2 mmol/L (3-11); BUN 12 mg/dL (7-18); Bilirubin, Total 0.5 mg/dL (0.2-1.0); CO2 25.8 mmol/L (21.0-32.0); CREATININE 0.89 mg/dL (0.55-1.02); Calcium 8.6 mg/dL (8.5-10.1); Chloride 94 mmol/L (98-107); ETHANOL BLOOD 120.4 mg/dL (<3); Glucose 111 mg/dL (70-100); Lipase 71 U/L (73-393); Magnesium 1.7 mg/dL (1.8-2.4); Potassium 3.5 mmol/L (3.5-5.1); Sodium 131 mmol/L (136-145)
[2018-04-15 20:27] LABS: Troponin I < 0.02 ng/mL (0.00-0.06)
--- NOTE | 2018-04-15 21:04 | DI.VRAD_ITS ---
EXAM: CT Angiography Chest With Contrast EXAM DATE/TIME: 04/15/2018 7:15 PM CLINICAL HISTORY: 57 years old, female; Pain; Chest pain; Other: Pleuritic TECHNIQUE: Axial computed tomographic angiography images of the chest with intravenous contrast using CT angiography protocol. All CT scans at this facility use at least one of these dose optimization techniques: automated exposure control; mA and/or kV adjustment per patient size (includes targeted exams where dose is matched to clinical indication); or iterative reconstruction. Coronal and sagittal reformatted images were created and reviewed. MIP reconstructed images were created and reviewed. CONTRAST: 100 ml of [id number] administered intravenously. COMPARISON: CT CHEST FOR PULMONARY EMBOLUS 10/09/2017 6:28 PM FINDINGS: There are degenerative changes of the spine. Increased markings are seen throughout the lungs. There is underlying centrilobular pulmonary emphysema. There is patchy infiltrate within the right lower lobe. This is somewhat nodular. There is no pleural effusion. There is no pneumothorax. There are some ill-defined opacities within the right upper lobe as well. The central airways are normal in caliber. The thyroid gland is unremarkable. There is no axillary adenopathy. There is no mediastinal adenopathy. There is no hilar adenopathy. Interrogation of the pulmonary arteries in multiple planes shows no evidence for pulmonary embolism. The aorta is normal in caliber with no evidence for aneurysm or dissection. The heart is normal in size. There is no evidence for right heart failure. Gallstones are seen within the gallbladder. IMPRESSION: 1. No evidence for pulmonary embolism. 2. Underlying pulmonary emphysema with patchy infiltrates within the right lower lobe. These are somewhat nodular. There also some mild opacities within the right upper lobe. Surveillance after appropriate antibiotic therapy should be considered. 3. Cholelithiasis. Dictated and Authenticated by: Kenton Ley MD. Ordering:VISHNU Ortiz MD
[2018-04-15] MEDS: LEVOFLOXACIN 500 MG, LEVOFLOXACIN 250 MG 750 MG PO (21:21)
[2018-04-15] MEDS: Normal Saline Flush 10 ML SYR IVP (21:21)
== END 2018-04-15 22:26 | disposition home or self-care (01) ==
PROVIDERS: Emergency Provider Emergency Medicine; PCP Family Medicine
DX: J18.9 Pneumonia, unspecified organism (principal); J44.1 Chronic obstructive pulmonary disease with (acute) exacerbation; R00.0 Tachycardia, unspecified; F17.210 Nicotine dependence, cigarettes, uncomplicated
CPT/HCPCS: 36415; 71275; 80053; 80076; 83690; 93005; 99285; 80320; 83735; 84484; 85025; 85610; 85730; 93010; J3490

== ENCOUNTER 2018-06-06 15:12 | Outpatient (CLI) | payer MEDICAID, SELFPAY ==
--- NOTE | 2018-06-06 14:00 | DI.RAD_ITS ---
SYMPTOM/DIAGNOSIS: COPD, H/O PNEUMONIA, F/U PA AND LATERAL CHEST: The examination is compared with previous examination of 04/12/18 showing vaguely nodular opacities in both lungs. On today's examination, there are bilateral, poorly defined infiltrates in both lungs suggesting multi focal process. No gross lobar consolidation is seen. No pleural effusion is seen. CONCLUSION: Bilateral worsening intrapulmonary infiltrates since 04/12/18. The findings are nonspecific and may represent infectious or other etiology. Repeat chest CT suggested for further evaluation.
== END 2018-06-06 15:32 ==
PROVIDERS: PCP Family Medicine; Visit Provider Family Medicine
DX: J44.9 Chronic obstructive pulmonary disease, unspecified (principal); R91.8 Other nonspecific abnormal finding of lung field
CPT/HCPCS: 71046

== ENCOUNTER 2018-06-13 01:01 | Outpatient (CLI) | payer MEDICAID, SELFPAY ==
[2018-06-13 10:58] LABS: CREATININE 1.03 mg/dL (0.55-1.02); Estimated GFR 55.43 (mL/min/1.73m2)
--- NOTE | 2018-06-13 11:51 | DI.CT_ITS ---
SYMPTOMS/DIAGNOSIS: PNEUMONIA, J18.9 CT SCAN OF THE CHEST: CT scan of the chest was performed following the uneventful administration of intravenous contrast material. Comparison CT scan is 04/15/18. There is atherosclerosis of the thoracic aorta but no aneurysmal dilatation is seen. The heart size is within normal limits. No significant pericardial effusion is present. Coronary artery calcifications are identified. No significant thoracic adenopathy, pleural effusion or pneumothorax is identified. Upper abdominal images show cholelithiasis. Extensive central lobular emphysematous changes are present in the lungs. There are small opacities seen in the lungs, particularly in the right upper and right lower lobes. These appear stable. No new infiltrates are seen. The tracheobronchial tree is unremarkable. Old bilateral healed rib fractures are seen. Degenerative changes are seen in the spine. IMPRESSION: 1. No new pulmonary infiltrates are seen. Stable opacities are seen in the lungs, particularly in the right upper and right lower lobes. These may represent areas of scarring, nodularity or infection. 2. Cholelithiasis. 3. Extensive central lobular emphysematous changes in the lungs.
[2018-06-13] MEDS: Omnipaque 350 MG/ML 100 ML BTL IJ (11:53)
== END 2018-06-13 01:21 ==
PROVIDERS: PCP Family Medicine; Visit Provider Family Medicine
DX: J18.9 Pneumonia, unspecified organism (principal); K80.20 Calculus of gallbladder without cholecystitis without obstruction; J44.9 Chronic obstructive pulmonary disease, unspecified; J43.9 Emphysema, unspecified
CPT/HCPCS: 36415; 71260; 82565; J3490

== ENCOUNTER 2018-07-13 00:57 | Outpatient (CLI) | payer MEDICAID, SELFPAY ==
--- NOTE | 2018-07-13 13:15 | DI.CT_ITS ---
SYMPTOMS/DIAGNOSIS: CONFUSIONAL STATE, F44.89, OTHER DISSOCIATIVE AND CONVERSION DISORDERS CT BRAIN, NONCONTRAST: Comparison is 10/09/17. The ventricles and sulci are consistent with the patient's age. No acute infarct, hemorrhage, midline shift or mass effect is identified. The ventricles are intact. The basilar cisterns are patent. The visualized paranasal sinuses are clear. The mastoid air cells are well pneumatized. The calvarium is intact. IMPRESSION: No acute intracranial process.
== END 2018-07-13 01:17 ==
PROVIDERS: PCP Family Medicine; Visit Provider Family Medicine
DX: F44.89 Other dissociative and conversion disorders (principal); R41.89 Other symptoms and signs involving cognitive functions and awareness; J44.9 Chronic obstructive pulmonary disease, unspecified
CPT/HCPCS: 36415; 80053; 82805; 85027; 36600; 70450; 81003; 82140; 82607; 84443

== ENCOUNTER 2018-07-13 01:21 | Outpatient (CLI) | payer MEDICAID, SELFPAY ==
[2018-07-13 12:33] LABS: HCT 40.7 % (36.0-46.0); HGB 13.6 g/dL (12.0-15.5); Mean Corp. HGB Concentration 33.4 g/dL (32.0-36.0); Mean Corpuscular Hemoglobin 31.4 pg (27.0-33.0); Mean Platelet Volume 9.4 fL (8.0-11.0); Platelet Count 183 x1000/uL (130-400); RBC 4.33 m/cumm (4.00-5.20); RBC Distribution Width 15.1 % (11.7-14.6); White Blood Cell Count 11.21 k/cumm (4.4-10.8)
[2018-07-13 12:43] LABS: Ammonia 19 umol/L (11-32)
[2018-07-13 12:56] LABS: BE -0.1 mmol/L (-3-3); HCO3 25 mmol/L (22-28); pCO2 39 mmHg (34-47); pH 7.41 (7.35-7.45); pO2 66 mmHg (83-108); sO2 93 % (94-98); tCO2 22 mmol/L (22-29)
[2018-07-13 12:59] LABS: FIO2 Room Air %; FIO2L 0.21 L; Site Left Radial
[2018-07-13 13:24] LABS: Bilirubin Negative (Negative); Blood Negative (Negative); Clarity Clear; Glucose Negative (Negative); Ketones Negative (Negative); Leukocyte Esterase Negative (Negative); Nitrite Negative (Negative); Specific Gravity 1.015 (1.005-1.025); Urobilinogen 0.2 EU/dL (Up TO 0.2); pH 6.5 (5-8)
[2018-07-13 14:44] LABS: ALT 24 U/L (12-78); AST 18 U/L (15-37); Albumin 3.7 g/dL (3.4-5.0); Alkaline Phosphatase 91 U/L (46-116); Anion Gap 9.5 mmol/L (3-11); BUN 10 mg/dL (7-18); Bilirubin, Total 0.2 mg/dL (0.2-1.0); CO2 27.5 mmol/L (21.0-32.0); Calcium 9.4 mg/dL (8.5-10.1); Chloride 102 mmol/L (98-107); Estimated GFR 57.35 (mL/min/1.73m2); Glucose 122 mg/dL (70-100); Potassium 4.3 mmol/L (3.5-5.1); Sodium 139 mmol/L (136-145); TSH 5.97 uIU/mL (0.358-3.74); Vitamin B12 1342 pg/mL (193-986)
== END 2018-07-13 01:41 ==
PROVIDERS: PCP Family Medicine; Visit Provider Family Medicine
DX: F44.89 Other dissociative and conversion disorders (principal); J44.9 Chronic obstructive pulmonary disease, unspecified
CPT/HCPCS: 36415; 80053; 82805; 85027; 36600; 81003; 82140; 82607; 84443

== ENCOUNTER 2018-07-26 10:26 | Outpatient (CLI) | payer MEDICAID, SELFPAY ==
--- NOTE | 2018-07-26 10:18 | DI.RAD_ITS ---
SYMPTOMS/DIAGNOSIS: PAIN LEFT SHOULDER: The patient is status post fracture of the proximal left humerus. The fracture unchanged in alignment when compared with previous images. There is nothing to suggest that healing is not progressing satisfactorily at the present time.
== END 2018-07-26 10:46 ==
PROVIDERS: PCP Family Medicine; Visit Provider Orthopaedic Surgery
DX: M25.512 Pain in left shoulder (principal); S42.255D Nondisplaced fracture of greater tuberosity of left humerus, subsequent encounter for fracture with routine healing
CPT/HCPCS: 73030

== ENCOUNTER 2018-07-31 22:43 | Emergency (ER) | payer MEDICAID, SELFPAY ==
[2018-07-31] VITALS (12 sets, daily range): BP systolic 90–114; BP diastolic 54–68; PULSE 79–87; RESP 12–18; TEMP 36.8; O2SAT 88–97
--- NOTE | 2018-07-31 22:31 | DI.RAD_ITS ---
SYMPTOMS/DIAGNOSIS: FALL CHEST: Single AP view was obtained. Comparison 06/06/18. The heart size and pulmonary vasculature are stable and within normal limits. There are diffuse interstitial markings which appear stable and likely reflect pulmonary fibrosis. No new infiltrates, effusions or pneumothoraces are identified. There is again seen a right total shoulder replacement. IMPRESSION: No acute pulmonary process.
--- NOTE | 2018-07-31 22:34 | W.ED.GENAD ---
Discharge Plan Disposition Patient Disposition: HOME Condition: Improving Discharge Details Chief Complaint: Trauma Clinical Impression: Alcohol intoxication Primary Care Provider: Remy Ortega ED Provider: Edu Pollock Home Meds and New Rx's Prescriptions: Continued albuterol sulfate [ProAir HFA] 8.5 GM HFA aerosol inhaler 2 puff Inhalation Q4H PRN PRNRF: 0 citalopram 40 MG tablet 40 mg PO DAILY RF: 0 risperidone [Risperdal] 1 MG tablet 1.5 mg PO HS RF: 0 ibuprofen 800 MG tablet 800 mg PO TID RF: 0 omeprazole 20 MG capsule,delayed release(DR/EC) 40 mg PO DAILY RF: 0 trazodone 100 MG tablet 100 mg PO HS PRNRF: 0 zolpidem [Ambien] 5 MG tablet 10 mg PO HS PRN PRNRF: 0 levothyroxine [Synthroid] 75 MCG tablet 75 mcg PO DAILY Qty: 90 RF: 0 polyethylene glycol 3350 17 GM powder in packet 17 gm PO BID PRN PRNRF: 0 magnesium oxide 400 MG tablet 800 mg PO BID Qty: 60 RF: 2 Clemente-Citrate 1 EACH tablet 1 tab PO DAILY RF: 0 Lyrica 100 MG capsule 1 cap PO BID RF: 0 levofloxacin 750 mg tablet 750 mg PO DAILY Qty: 7 RF: 0 epinephrine [EpiPen 2-Janes] 0.3 MG/0.3 ML auto-injector 0.3 mg IM PRN PRNRF: 0 Symbicort 60 PUFF HFA aerosol inhaler 2 puff Inhalation BID RF: 0 ipratropium-albuterol 3 ML solution for nebulization 3 ml UPD Q6H 30 Days Qty: 1 RF: 1 bupropion HCl [Wellbutrin] 100 MG tablet 300 mg PO DAILY RF: 0 Discharge Instructions Instructions: Alcohol Intoxication (ED) Additional Instructions: Continue your regular medications. Home to rest today. Discharge Data Discharge Date/Time-TO BE ENTERED AT DEPARTURE: 08/01/18 06:28 Medical Decision Making <Constantine Hawthorne MD - Last Filed: 08/01/18 15:09> 22:34 --58-year-old female here with EMS with altered mental and fall with possible head injury. Consider acute life-threatening intracranial traumatic hemorrhage. Plan to obtain CT head. Consider cervical spine fracture is exam unreliable. Plan to obtain CT of the cervical spine. Abdomen soft and nonttp. 00:30 --CT of the head interpreted by radiology: No acute intracranial abnormality CT of the cervical spine interpreted by radiology: No acute findings. There is some motion degradation C5-C7 which would limit sensitivity very slightly. If there are persistent concerning symptoms consider repeat imaging and/or MRI scan. Chest x-ray interpreted by radiology: Mild pulmonary fibrotic change. No acute findings Labs reviewed. Alcohol level 213 at 22:45. Mild hyponatremia noted. Will give IV fluid. 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 I will give thiamine 100 mg IV. Plan to monitor for sobriety. Reassess cervical spine at that time. <Edu Pollock MD - Last Filed: 08/01/18 06:12> Patient observed through the night for a total of 7-1/2 hours. Clinically sober. No current other complaints and denies any pain. Reexamination of the cervical spine reveals no step-off or deformity and no tenderness. She is stable and improved. Will discharge to home. HPI <Constantine Hawthorne MD - Last Filed: 08/01/18 15:09> General Mode of arrival: EMS. Date/Time Provider Initiated Documentation: 08/01/18 00:33. Limitations to Documentation: no limitations. Information obtained by: EMS. HPI Narrative: 58-year-old female with multiple medical problems presents with altered mental status. Per EMS, patient consumed a heavy amount of alcohol tonight and fell from standing to the floor. This was a witnessed fall. Questionable loss of consciousness. Patient is unable to provide history. History and review of systems limited secondary to altered mental status. Related Data Home Medications Medication Instructions Recorded Confirmed albuterol sulfate [ProAir HFA] 2 puff INHALATION Q4H PRN PRN 01/01/16 07/26/18 citalopram 40 mg PO DAILY 01/03/16 07/26/18 risperidone [Risperdal] 1.5 mg PO HS 01/03/16 07/26/18 levothyroxine [Synthroid] 75 mcg PO DAILY #90 tab 06/25/16 07/26/18 magnesium oxide 800 mg PO BID #60 tab 06/25/16 07/26/18 polyethylene glycol 3350 17 gm PO BID PRN PRN packet 06/25/16 07/26/18 epinephrine [EpiPen 2-Janes] 0.3 mg IM PRN PRN 07/10/16 07/26/18 Symbicort 2 puff INHALATION BID inh 07/16/16 07/26/18 ibuprofen 800 mg PO TID 07/29/16 07/26/18 omeprazole 40 mg PO DAILY 07/29/16 07/26/18 trazodone 100 mg PO HS PRN 08/04/16 07/26/18 zolpidem [Ambien] 10 mg PO HS PRN PRN 08/04/16 08/01/18 Clemente-Citrate 1 tab PO DAILY 12/04/16 07/26/18 Lyrica 1 cap PO BID 12/04/16 07/26/18 ipratropium-albuterol 3 ml UPD Q6H 30 Days #1 b 05/17/17 07/26/18 bupropion HCl [Wellbutrin] 300 mg PO DAILY 10/06/17 07/26/18 levofloxacin 750 mg PO DAILY #7 tab 04/15/18 07/26/18 Previous Rx's Medication Instructions Recorded levothyroxine [Synthroid] 75 mcg PO DAILY #90 tab 06/25/16 magnesium oxide 800 mg PO BID #60 tab 06/25/16 polyethylene glycol 3350 17 gm PO BID PRN PRN packet 06/25/16 Symbicort 2 puff INHALATION BID inh 07/16/16 ipratropium-albuterol 3 ml UPD Q6H 30 Days #1 b 05/17/17 levofloxacin 750 mg PO DAILY #7 tab 04/15/18 Allergies Allergy/AdvReac Type Severity Reaction Status Date / Time venom-honey bee Allergy Severe Anaphylaxsi Verified 07/26/18 10:06 s General ADALBERTO: 3 Review of Systems <Constantine Hawthorne MD - Last Filed: 08/01/18 15:09> Review of Systems Unobtainable due to mental status PFS <Constantine Hawthorne MD - Last Filed: 08/01/18 15:09> Medical History Anxiety disorder (Acute) Respiratory failure (Acute) COPD exacerbation (Acute) Hypothyroidism (acquired) (Acute) Pulmonary histiocytosis x (Acute) Bipolar disorder (Acute) Nicotine dependence with current use (Acute) Social History Smoking/Tobacco Use Status: Current every day Tobacco Type: cigarettes Tobacco: How many years used: 40 Alcohol Intake: current Counseling given: Yes Details: says she is in AA and talks to her sponsor daily, drinking at 9 am @ visit Drug use: Current Sobriety Substance use type: marijuana Adopted: Yes Caregiver/Support person: No Foster care: Yes Household members: none Housing: apartment Number of Children: 1 number of grandchildren: 1 Pets and animals: No What is your relationship status?: How often do you get together with friends or relatives?: three or more times per week Panel score (0-1 are the most socially isolated patients): 1 What type of physical activity do you participate in: none Do you feel safe at home: Yes Do you feel safe in your relationship?: Yes Exam <Constantine Hawthorne MD - Last Filed: 08/01/18 15:09> Const General: no acute distress Orientation: obtunded Limitations: altered mental status [facility] Head: normocephalic, atraumatic, no Sarkar's sign, no hematomas, no raccoon eyes and No periorbital ecchymosis Ears: TM's normal bilaterally and mastoids normal General nose exam: external nose normal and septum normal Face and sinus: normal facial exam Mouth: moist mucous membranes Eyes Conjunctivae: normal conjunctivae Sclera: normal sclerae Pupils: PERRL Neck Neck: trachea midline and supple Resp Auscultation: clear to auscultation bilaterally, no rales, no rhonchi and no wheezes Cardio Jugular venous pressure: no JVD Rate: regular rate and not tachycardic Rhythm: regular rhythm GI Palpation: soft, not firm, no guarding, no masses, not rigid and nontender Skin General skin exam: no rashes or lesions noted Neuro General: obtunded and other (Moves all extremities) Extrem General: no edema Sign Out <Constantine Hawthorne MD - Last Filed: 08/01/18 15:09> Sign Out Data: Sign Out Comment: Continue to monitor. Reassess when sober. Assess cervical spine when sober. Determine disposition. Last updated by Constantine Hawthorne MD at 08/01/18 00:43
[2018-07-31] MEDS: Normal Saline 1,000 ML 1000 ML IV (22:40)
[2018-07-31 23:04] LABS: Abs Immature Grans 0.19 k/cumm (0.0-0.09); Absolute Basophil Count 0.04 k/cumm (0.0-0.2); Absolute Eosinophil Count 0.14 k/cumm (0.0-0.7); Absolute Lymphocyte Count 3.62 k/cumm (1.2-3.4); Basophils % 0.4; Eosinophils % 1.3; HCT 39.5 % (36.0-46.0); HGB 13.6 g/dL (12.0-15.5); Immature Grans % 1.7; Lymphocytes % 32.7; Mean Corp. HGB Concentration 34.4 g/dL (32.0-36.0); Mean Corpuscular Hemoglobin 31.9 pg (27.0-33.0); Mean Corpuscular Volume 92.7 fL (80-95); Mean Platelet Volume 9.8 fL (8.0-11.0); Monocytes % 8.1; Neutrophils % 55.8; Platelet Count 203 x1000/uL (130-400); RBC 4.26 m/cumm (4.00-5.20); White Blood Cell Count 11.08 k/cumm (4.4-10.8)
[2018-07-31 23:11] LABS: Absolute Neutrophil Count 6.18 k/cumm (1.2-6.7); ETHANOL BLOOD 213.5 mg/dL (<3); Magnesium 1.8 mg/dL (1.8-2.4)
[2018-07-31 23:13] LABS: AST 34 U/L (15-37); Alkaline Phosphatase 79 U/L (46-116); Anion Gap 13.3 mmol/L (3-11); BUN 17 mg/dL (7-18); Bilirubin, Total 0.5 mg/dL (0.2-1.0); CO2 22.7 mmol/L (21.0-32.0); CREATININE 0.84 mg/dL (0.55-1.02); Calcium 9.3 mg/dL (8.5-10.1); Chloride 92 mmol/L (98-107); Potassium 3.8 mmol/L (3.5-5.1); Sodium 128 mmol/L (136-145); Total Protein 7.4 g/dL (6.4-8.2)
[2018-07-31 23:15] LABS: Troponin I < 0.02 ng/mL (0.00-0.06)
[2018-07-31 23:17] LABS: INR 1.1 (0.9-1.1); Prothrombin Time 10.8 sec (9.3-11.0)
--- NOTE | 2018-07-31 23:20 | DI.CT_ITS ---
SYMPTOMS/DIAGNOSIS: FALL FROM STANDING, ETOH, ALTERED MENTATION CT BRAIN: Noncontrast examination. The ventricles and sulci are consistent with the patient's age. No intracranial hemorrhage, midline shift, mass effect or infarct is seen. The calvarium is intact. IMPRESSION: No acute intracranial process. CT SCAN OF THE CERVICAL SPINE: Multiple contiguous axial images of the cervical spine were obtained. Sagittal and coronal reformatted images were evaluated on the Siemens workstation. There is patient motion artifact present. No acute fracture or subluxation is seen. The soft tissues are unremarkable. IMPRESSION: 1. Limited examination due to patient motion artifact. 2. No definite acute fracture or subluxation in the cervical spine. If there is continued concern, a repeat examination or MRI may be considered.
--- NOTE | 2018-07-31 23:28 | DI.VRAD_ITS ---
EXAM: CT Head Without Contrast EXAM DATE/TIME: 07/31/2018 10:34 PM CLINICAL HISTORY: 58 years old, female; Injury or trauma; Initial encounter; Blunt trauma (contusions or hematomas); With loss of consciousness; Not specified; Injury date: 07/31/18; Injury details: Fall from standing, ETOH, AMS TECHNIQUE: Imaging protocol: Axial computed tomography images of the head without contrast. Coronal and sagittal reformatted images were created and reviewed. Radiation optimization: All CT scans at this facility use at least one of these dose optimization techniques: automated exposure control; mA and/or kV adjustment per patient size (includes targeted exams where dose is matched to clinical indication); or iterative reconstruction. COMPARISON: CT HEAD WO 07/13/2018 1:03 PM FINDINGS: Brain: Typical for age. No hemorrhage. No evidence of acute infarct. No mass. Ventricles: No ventriculomegaly. Bones/joints: Unremarkable. Sinuses: No sinus fluid. Mastoid air cells: Unremarkable. Soft tissues: Unremarkable. IMPRESSION: No acute intracranial abnormality. EXAM: CT Cervical Spine Without Contrast EXAM DATE/TIME: 07/31/2018 10:34 PM CLINICAL HISTORY: 58 years old, female; Injury or trauma; Initial encounter; Blunt trauma (contusions or hematomas); With loss of consciousness; Not specified; Injury date: 07/31/18; Injury details: Fall from standing, ETOH, AMS TECHNIQUE: Imaging protocol: Axial computed tomography images of the cervical spine without contrast. Coronal and sagittal reformatted images were created and reviewed. Radiation optimization: All CT scans at this facility use at least one of these dose optimization techniques: automated exposure control; mA and/or kV adjustment per patient size (includes targeted exams where dose is matched to clinical indication); or iterative reconstruction. COMPARISON: CT HEAD WO 07/13/2018 1:03 PM FINDINGS: Vertebrae: No acute fracture. Normal alignment. Vertebral body heights preserved. Discs/Spinal canal/Neural foramina: Typical for age. Soft tissues: Unremarkable. Lungs: Lung apices are unremarkable as visualized. IMPRESSION: No acute findings. There is some motion degradation C5-C7 which would limit sensitivity very slightly. If there are persistent concerning symptoms consider repeat imaging and/or MRI scan. Dictated and Authenticated by: Carlo Childress MD. Ordering:NIKKI Fitch MD
--- NOTE | 2018-07-31 23:29 | DI.VRAD_ITS ---
EXAM: XR Chest, 1 View EXAM DATE/TIME: 07/31/2018 10:34 PM CLINICAL HISTORY: 58 years old, female; Signs and symptoms; Other: Fall, AMS, ETOH TECHNIQUE: Imaging protocol: XR of the chest, 1 view. COMPARISON: CR XR CHEST 2V PA LATERAL 06/06/2018 2:02 PM FINDINGS: Lungs: There are some coarse interstitial markings which are unchanged. Pleural space: Unremarkable. No evidence of pneumothorax. Heart/Mediastinum: Unremarkable. Heart size within normal limits for technique. Bones/joints: Unremarkable. IMPRESSION: Mild pulmonary fibrotic change. No acute findings. Dictated and Authenticated by: Carlo Childress MD. Ordering:NIKKI Fitch MD
[2018-07-31 23:41] LABS: ALT 27 U/L (12-78); Albumin 3.6 g/dL (3.4-5.0); Glucose 80 mg/dL (70-100)
[2018-08-01] VITALS (62 sets, daily range): BP systolic 94–150; BP diastolic 51–89; PULSE 66–92; RESP 10–25; O2SAT 89–100
[2018-08-01] MEDS: Normal Saline 1,000 ML 150 ML IV (00:54)
[2018-08-01] MEDS: THIAMINE 100 MG in Normal Saline 100 ML 200 MG IVPB (00:54)
--- NOTE | 2018-08-01 00:55 | NUR.NOTE ---
Nursing Note:patient responsive to name, sleeps easily,
--- NOTE | 2018-08-01 05:46 | NUR.NOTE ---
Nursing Note: patient arouses to her name, but returns to sleep, vs stable, iv infusing without difficulty.
== END 2018-08-01 06:28 | disposition home or self-care (01) ==
PROVIDERS: Student in an Organized Health Care Education/Training Program; Emergency Provider Emergency Medicine; PCP Family Medicine
DX: S09.90XA Unspecified injury of head, initial encounter (principal); E87.1 Hypo-osmolality and hyponatremia; R41.82 Altered mental status, unspecified; F10.26 Alcohol dependence with alcohol-induced persisting amnestic disorder; Y90.7 Blood alcohol level of 200-239 mg/100 ml; W18.30XA Fall on same level, unspecified, initial encounter; J44.9 Chronic obstructive pulmonary disease, unspecified
CPT/HCPCS: 36415; 80053; 96361; 96365; 99285; 70450; 71045; 72125; 80320; 83735; 84484; 85025; 85610

== ENCOUNTER 2018-08-03 12:44 | Day surgery (SDC) | payer MEDICAID, SELFPAY ==
[2018-08-03 13:17] VITALS: BP 131/78; PULSE 97; RESP 16; TEMP 36.4; O2SAT 93
--- NOTE | 2018-08-03 14:56 | DI.RAD_ITS ---
SYMPTOM/DIAGNOSIS: INJECTION, OA LT SHOULDER C-ARM LEFT SHOULDER: Fluoroscopy Time: 2.2 seconds, mgy 0.17 A needle is positioned over the left shoulder by Dr. Leblanc in conjunction with a joint injection. Please see the procedure report for further information.
[2018-08-03] MEDS: methylPREDNISolone ACETATE 80 MG/ML VIAL (15:25)
--- NOTE | 2018-08-03 15:31 | PDOC.DSDIS_ITS ---
Discharge Plan Disposition Patient Disposition: HOME Condition: Good Discharge Details Reason For Visit: OA (L) SHOULDER Attending Provider: Edu Leblanc Primary Care Provider: Remy Ortega Home Meds and New Rx's Prescriptions: Continued albuterol sulfate [ProAir HFA] 8.5 GM HFA aerosol inhaler 2 puff Inhalation Q4H PRN PRNRF: 0 citalopram 40 MG tablet 40 mg PO DAILY RF: 0 risperidone [Risperdal] 1 MG tablet 1.5 mg PO HS RF: 0 ibuprofen 800 MG tablet 800 mg PO TID RF: 0 omeprazole 20 MG capsule,delayed release(DR/EC) 40 mg PO DAILY RF: 0 trazodone 100 MG tablet 100 mg PO HS PRNRF: 0 zolpidem [Ambien] 5 MG tablet 10 mg PO HS PRN PRNRF: 0 levothyroxine [Synthroid] 75 MCG tablet 75 mcg PO DAILY Qty: 90 RF: 0 polyethylene glycol 3350 17 GM powder in packet 17 gm PO BID PRN PRNRF: 0 magnesium oxide 400 MG tablet 800 mg PO BID Qty: 60 RF: 2 Clemente-Citrate 1 EACH tablet 1 tab PO DAILY RF: 0 Lyrica 100 MG capsule 1 cap PO BID RF: 0 Trelegy Ellipta 100-62.5-25 mcg Blister With Device 1 inh INHALATION DAILY RF: 0 epinephrine [EpiPen 2-Janes] 0.3 MG/0.3 ML auto-injector 0.3 mg IM PRN PRNRF: 0 ipratropium-albuterol 3 ML solution for nebulization 3 ml UPD Q6H 30 Days Qty: 1 RF: 1 bupropion HCl [Wellbutrin] 100 MG tablet 300 mg PO DAILY RF: 0 Discharge Instructions Additional Instructions: Apply ice bag to L shoulder 4 times/day for 1 hour each time over next 3 days. Rest your L shoulder for 48 hours. After 48 hours, gradually resume use of L arm within limits of pain. Take ibuprofen 600 mg 3 times/day for next 2 weeks to decrease inflammation and pain in L shoulder. Follow up with in one month. Referrals: Edu Leblanc MD [ [facility] STAFF PHYSICIAN] - (f/u in one month) Activity:: Activity as Tolerated Diet:: As Tolerated Discharge Orders Discharge Orders: Discharge Order (Routine); Ordered 08/03/18 Ordered By: Edu Leblanc DS: Diagnosis Discharge Diagnosis (1) DJD of left shoulder: Status: Acute
--- NOTE | 2018-08-04 11:53 | ROE_ITS ---
REPORT OF OPERATIVE PROCEDURE DATE OF PROCEDURE August 03, 2018 PREOPERATIVE DIAGNOSIS Osteoarthritis left shoulder. POSTOPERATIVE DIAGNOSIS Osteoarthritis left shoulder. PROCEDURE Fluoroscopic guided injection left shoulder. ANESTHESIA Local. SURGEON Edu Leblanc M.D. INDICATIONS This is a 58-year-old white female with OA of her left shoulder. This has been very painful for her. She is presently not a surgical candidate due to medical problems. Intraarticular cortisone injection was recommended to try to obtain some relief of pain that would be tolerable for her. The risks and complications of the procedure were explained to the patient in detail preoperatively. PROCEDURE DESCRIPTION The patient was taken to the Operating Room on 08/03/18. She was placed supine on the Operating Table. The C-arm was used to localize the shoulder. The skin was prepped with alcohol. An #18-gauge spinal needle was inserted from direct anterior to the shoulder joint. Position of the needle in the should er joint was confirmed with the C-arm. I then injected into her shoulder joint 17 cc of 0.5% Marcain e with Epinephrine solution along with 80 mg. of Depo-Medrol. I then passively cycled her shoulder f or a couple of minutes to distribute the medication. The patient experienced excellent relief of pain from the injection. She was discharged to the Day Surgery Unit in good condition. The patient discharged home with instructions to rest her shoulder for the next 48 to 72 hours. She i s to apply an ice bag to the left shoulder four times a day for an hour each time three or four times a day. She is instructed to take ibuprofen 600 mg p.o. t.i.d. for two weeks. After 48 hours, she may gradually resume activities with tolerance of pain with her left shoulder. S he should followup with Dr. Leblanc in one month.
== END 2018-08-03 16:00 | disposition home or self-care (01) ==
PROVIDERS: PCP Family Medicine; Visit Provider Orthopaedic Surgery
PROC: (CPT 20610; principal; 2018-08-03 14:00)
DX: M19.012 Primary osteoarthritis, left shoulder (principal); M25.512 Pain in left shoulder
CPT/HCPCS: 20610; 77002; 73020; J1040

== ENCOUNTER 2018-08-19 12:12 | Inpatient (IN) | payer MEDICAID, SELFPAY ==
[2018-08-19] VITALS (24 sets, daily range): BP systolic 98–172; BP diastolic 58–78; PULSE 87–112; RESP 4–24; TEMP 36.5–37.7; O2SAT 92–99
--- NOTE | 2018-08-19 12:34 | DI.RAD_ITS ---
SYMPTOMS/DIAGNOSIS: RHONCHI, SHORTNESS OF BREATH, PRODUCTIVE COUGH CHEST X-RAY, FRONTAL AND LATERAL VIEWS: Comparison is 07/31/18. The heart size and pulmonary vasculature are within normal limits. There is diffuse prominence of the interstitium, which appears grossly unchanged and likely is chronic. No focal consolidating infiltrates, effusions or pneumothoraces are identified. Degenerative changes are seen in the spine. IMPRESSION: No definite acute pulmonary process.
[2018-08-19] MEDS: methylPREDNISolone SUCC 125 MG VIAL (12:58)
[2018-08-19] MEDS: Albuterol/Ipratropium 3 ML UPD VIAL ×3 (12:59→13:12)
[2018-08-19 13:17] LABS: HCO3 (Venous) 24 mmol/L (22-28); O2 Sat (Venous) 95 % (70-80); TCO2 (Venous) 21 mmol/L (22-29); pCO2 (Venous) 38 mm/Hg (34-47); pH (Venous) 7.41 (7.32-7.43); pO2 (Venous) 74 mm/Hg (28-44)
[2018-08-19 13:22] LABS: Abs Immature Grans 0.05 k/cumm (0.0-0.09); Absolute Basophil Count 0.02 k/cumm (0.0-0.2); Absolute Eosinophil Count 0.04 k/cumm (0.0-0.7); Absolute Lymphocyte Count 0.85 k/cumm (1.2-3.4); Basophils % 0.2; Eosinophils % 0.4; HCT 39.1 % (36.0-46.0); HGB 13.3 g/dL (12.0-15.5); Immature Grans % 0.5; Lactate-non-spesis 1.5 mmol/l (0.6-1.4); Lymphocytes % 7.7; Mean Corpuscular Hemoglobin 32.4 pg (27.0-33.0); Mean Corpuscular Volume 95.1 fL (80-95); Mean Platelet Volume 10.2 fL (8.0-11.0); Monocytes % 5.4; Neutrophils % 85.8; Platelet Count 175 x1000/uL (130-400); RBC 4.11 m/cumm (4.00-5.20); RBC Distribution Width 15.4 % (11.7-14.6); White Blood Cell Count 11.05 k/cumm (4.4-10.8)
[2018-08-19 13:24] LABS: Absolute Neutrophil Count 9.48 k/cumm (1.2-6.7)
[2018-08-19 13:40] LABS: PTT Activated 23.4 sec (21.0-31.4); Prothrombin Time 9.7 sec (9.3-11.0)
[2018-08-19 13:46] LABS: ALT 70 U/L (12-78); AST 73 U/L (15-37); Albumin 3.6 g/dL (3.4-5.0); Alkaline Phosphatase 101 U/L (46-116); Anion Gap 13.3 mmol/L (3-11); BUN 9 mg/dL (7-18); Bilirubin, Total 0.3 mg/dL (0.2-1.0); CO2 23.7 mmol/L (21.0-32.0); CREATININE 0.82 mg/dL (0.55-1.02); Calcium 9.5 mg/dL (8.5-10.1); Chloride 99 mmol/L (98-107); Glucose 127 mg/dL (70-100); NT-proBNP 88 pg/mL; Potassium 4.2 mmol/L (3.5-5.1); Sodium 136 mmol/L (136-145); TSH (W/Ref FT4) 6.56 uIU/mL (0.358-3.74); Total Protein 7.8 g/dL (6.4-8.2)
[2018-08-19 13:50] LABS: Troponin I < 0.02 ng/mL (0.00-0.06)
[2018-08-19 14:06] LABS: FREE T4 0.87 ng/dL (0.76-1.46)
--- NOTE | 2018-08-19 14:10 | ED.GENADUL_ITS ---
Discharge Plan Disposition Patient Disposition: [facility] INPATIENT Condition: Improving Discharge Details Chief Complaint: SOB Clinical Impression: COPD (chronic obstructive pulmonary disease), Community acquired pneumonia Primary Care Provider: Remy Ortega ED Provider: Angel Lombardi Home Meds and New Rx's Prescriptions: No Action albuterol sulfate [ProAir HFA] 8.5 GM HFA aerosol inhaler 2 puff Inhalation Q4H PRN PRNRF: 0 citalopram 40 MG tablet 40 mg PO DAILY RF: 0 risperidone [Risperdal] 1 MG tablet 1.5 mg PO HS RF: 0 ibuprofen 800 MG tablet 800 mg PO TID RF: 0 omeprazole 20 MG capsule,delayed release(DR/EC) 40 mg PO DAILY RF: 0 trazodone 100 MG tablet 100 mg PO HS PRNRF: 0 zolpidem [Ambien] 5 MG tablet 10 mg PO HS PRN PRNRF: 0 levothyroxine [Synthroid] 75 MCG tablet 75 mcg PO DAILY Qty: 90 RF: 0 polyethylene glycol 3350 17 GM powder in packet 17 gm PO BID PRN PRNRF: 0 magnesium oxide 400 MG tablet 800 mg PO BID Qty: 60 RF: 2 Clemente-Citrate 1 EACH tablet 1 tab PO DAILY RF: 0 Lyrica 100 MG capsule 1 cap PO BID RF: 0 Trelegy Ellipta 100-62.5-25 mcg Blister With Device 1 inh INHALATION DAILY RF: 0 epinephrine [EpiPen 2-Janes] 0.3 MG/0.3 ML auto-injector 0.3 mg IM PRN PRNRF: 0 ipratropium-albuterol 3 ML solution for nebulization 3 ml UPD Q6H 30 Days Qty: 1 RF: 1 bupropion HCl [Wellbutrin] 100 MG tablet 300 mg PO DAILY RF: 0 lisinopril 5 mg Tablet 5 mg PO DAILY RF: 0 Medical Decision Making This is a 58-year-old female with a past medical history of pulmonary Langerhans' cell cytosis, COPD, high cholesterol, reflux, and anxiety who presents today for evaluation of cough for the last 3 to 4 days with productive green sputum. She has been on doxycycline Levaquin greater than a month ago, she is on chronic steroids. She is on 3 L of home oxygen at a baseline. She denies any chest pain or chest tightness. Exam demonstrates rhonchorous and crackly lungs. No significant severe pitting edema of the lower extremities. She has been intubated before, and I intubated her last October during an episode of respiratory failure. No concern for community-acquired pneumonia, as well as potential aspiration pneumonia with her history of alcoholism. We will give breathing treatments, steroids, evaluate for infectious etiologies and reassess. Do feel that she would benefit from inpatient admission secondary to her high risk level, history, and current symptomatology. 2:58 PM Patient's laboratory work-up has returned, troponin normal, EKG unremarkable, minimally elevated white count, mild left shift, renal function stable, VBG benign. Electrolytes normal. Lactate minimally elevated at 1.5. X-ray results per radiology demonstrate chronic components however with her symptoms of productive green sputum for the last 3 to 4 days of feel there is certainly may be an acute component. Patient's oxygen appears to be stable in the ED at 3 L after breathing treatments and steroids. There are multiple social components that I feel are not necessarily being met as respiratory therapy has evaluated the patient and has noted this in their discussion about her chronic issues in regards to managing her lung disease. Even after these treatments the patient states that she feels no better at this time. With her history of previous intubations, known severe lung disease, her worsening symptoms over the last 3 to 4 days with productive sputum, I do feel that she would benefit from admission, social management and respiratory evaluation. We will give Rocephin and doxycycline out of concern for community-acquired pneumonia she has not been admitted in the last 90 days, in addition to her COPD exacerbation. I discussed the case with Dr Kraft. I have extensively reviewed the treatment plan with the patient. I have addressed all patient concerns at this time. I have also discussed the plan with the admitting physician and they agree with the current assessment and plan and have agreed to assume responsibility for the patient. All parties demonstrate verbal understanding and agreement with our assessment and plan at this time. EKG 12: 29 Rate 89, intervals normal, sinus rhythm, no significant ST elevations or depressions, slightly flattened and inverted T wave in V1 and V2. Questionable Q waves in lead III. No acute changes from EKG from 04/15/2018. HPI General Date/Time Provider Initiated Documentation: 08/19/18 12:21 . HPI Narrative: This is a 58-year-old female with a past medical history of COPD, alcoholism, GERD, high cholesterol, hypothyroidism, pulmonary Langerhans histiocytosis, who presents today for evaluation of cough with productive green sputum, shortness of breath, and fatigue. Symptoms have been present worsening for the last 3 to 4 days. She was on antibiotics in the past, Levaquin, but this is greater than a month ago. She does have a history of intubation and cardiac arrest which I intubated her in October, but no previous intubations since then. This is secondary to respiratory failure secondary to pneumonia and COPD at that time. She denies any chest pain or chest tightness. She has been taking breathing treatments at home with no significant improvement. She is normally on 3 L of oxygen at all times. She denies any other complaints. Related Data Home Medications Medication Instructions Recorded Confirmed albuterol sulfate [ProAir HFA] 2 puff INHALATION Q4H PRN PRN 01/01/16 08/19/18 citalopram 40 mg PO DAILY 01/03/16 08/19/18 risperidone [Risperdal] 1.5 mg PO HS 01/03/16 08/19/18 levothyroxine [Synthroid] 75 mcg PO DAILY #90 tab 06/25/16 08/19/18 magnesium oxide 800 mg PO BID #60 tab 06/25/16 08/19/18 polyethylene glycol 3350 17 gm PO BID PRN PRN packet 06/25/16 08/19/18 epinephrine [EpiPen 2-Janes] 0.3 mg IM PRN PRN 07/10/16 08/19/18 ibuprofen 800 mg PO TID 07/29/16 08/19/18 omeprazole 40 mg PO DAILY 07/29/16 08/19/18 trazodone 100 mg PO HS PRN 08/04/16 08/19/18 zolpidem [Ambien] 10 mg PO HS PRN PRN 08/04/16 08/19/18 Clemente-Citrate 1 tab PO DAILY 12/04/16 08/19/18 Lyrica 1 cap PO BID 12/04/16 08/19/18 ipratropium-albuterol 3 ml UPD Q6H 30 Days #1 b 05/17/17 08/19/18 bupropion HCl [Wellbutrin] 300 mg PO DAILY 08/01/18 06/14/19 Trelegy Ellipta 1 inh INHALATION DAILY 08/03/18 08/19/18 lisinopril 5 mg PO DAILY 08/19/18 08/19/18 Previous Rx's Medication Instructions Recorded levothyroxine [Synthroid] 75 mcg PO DAILY #90 tab 06/25/16 magnesium oxide 800 mg PO BID #60 tab 06/25/16 polyethylene glycol 3350 17 gm PO BID PRN PRN packet 06/25/16 ipratropium-albuterol 3 ml UPD Q6H 30 Days #1 b 05/17/17 Allergies Allergy/AdvReac Type Severity Reaction Status Date / Time venom-honey bee Allergy Severe Anaphylaxsi Verified 08/19/18 13:58 s General Stated Complaint: SOB ADALBERTO: 3 Review of Systems Review of Systems All systems reviewed & are unremarkable except as noted in HPI and below PFSH Medical History Anxiety disorder (Acute) Respiratory failure (Acute) COPD exacerbation (Acute) Hypothyroidism (acquired) (Acute) Pulmonary histiocytosis x (Acute) Bipolar disorder (Acute) Nicotine dependence with current use (Acute) Hx of hysterectomy (Chronic) Surgical History History of right shoulder replacement (Acute) Hx of bilateral cataract extraction (Acute) Hx of section (Chronic) Social History Smoking/Tobacco Use Status: Current every day Tobacco Type: cigarettes Smoking cigarettes per day: 10 Tobacco: How many years used: 40 Alcohol Intake: current Alcohol Intake frequency: a few times a week Alcohol type: beer Counseling given: Yes Details: says she is in AA and talks to her sponsor daily, drinking at 9 am @ visit Drug use: Current Sobriety Substance use type: does not use Adopted: Yes Caregiver/Support person: No Foster care: Yes Household members: none Housing: apartment Number of Children: 1 number of grandchildren: 1 Pets and animals: No What is your relationship status?: How often do you get together with friends or relatives?: three or more times per week Panel score (0-1 are the most socially isolated patients): 1 What type of physical activity do you participate in: none Do you feel safe at home: Yes Exam Narrative Exam Narrative: 1.Const: Well-nourished, Well-developed, appearing stated age 2.Eyes: PERRL, no conjunctival injection, and symmetrical lids. 3.ENT: Atraumatic external nose and ears. Moist MM. Neck: Symmetric, trachea midline, No thyromegaly. 4.CVS: +S1/S2, No murmurs or gallops. Peripheral pulses 2+ and equal in all extremities. Brisk capillary refill in all extremities. 5.RESP: Crackles and rhonchi throughout, mild wheezes throughout. 6.GI: Soft, Nontender/Nondistended, No hepatosplenomegaly. No guarding or rebound. 7.MSK: Normocephalic/Atraumatic, Extremities w/o deformity or ttp No cyanosis or clubbing, Normal movement of all extremities 8.Skin: Warm, Dry. No rashes or lesions. 9.Neuro: digital product specialist II-XII grossly intact. Sensation grossly intact, no focal neurologic deficits. 10.Psych: (AAO) x3. Appropriate mood and affect Course Vital Signs Temperature 36.5 C 08/19/18 12:19 Pulse 96 H 08/19/18 12:19 Respiratory Rate 24 08/19/18 12:19 Blood Pressure 128/64 08/19/18 12:19 Pulse Oximetry 92 L 08/19/18 12:19 Temperature 36.6 C 08/19/18 13:01 Temperature Source Skin 08/19/18 13:01 Pulse 105 H 08/19/18 13:12 Respiratory Rate 15 08/19/18 13:57 Respiratory Effort Incrsd Work of Breathing 08/19/18 13:57 Respiratory Depth Normal 08/19/18 13:57 Respiratory Pattern Normal 08/19/18 13:57 Blood Pressure 113/61 08/19/18 13:01 Blood Pressure Position Sitting 08/19/18 12:19 Pulse Oximetry 97 08/19/18 13:12 Oxygen Delivery Method Nasal Cannula 08/19/18 13:12 Oxygen Flow Rate 3 08/19/18 13:12 Comment 08/19/18 12:30 Lab/Test Results Lab/Test Results: 08/19/18 13:26 Blood Blood Culture - Pending 08/19/18 12:50 Blood Blood Culture - Pending Laboratory Tests Range/Units 08/19/18 08/19/18 08/19/18 12:50 12:50 12:50 WBC (4.4-10.8) k/cumm 11.05 H RBC (4.00-5.20) m/cumm 4.11 Hgb (12.0-15.5) g/dL 13.3 Hct (36.0-46.0) % 39.1 MCV (80-95) fL 95.1 H MCH (27.0-33.0) pg 32.4 MCHC (32.0-36.0) g/dL 34.0 RDW (11.7-14.6) % 15.4 H Plt Count (130-400) x1000/uL 175 MPV (8.0-11.0) fL 10.2 Immature Gran % 0.5 Neutrophils % 85.8 Lymphocytes % 7.7 Monocytes % 5.4 Eosinophils % 0.4 Basophils % 0.2 Absolute Neutrophils (1.2-6.7) k/cumm 9.48 H Absolute Lymphocytes (1.2-3.4) k/cumm 0.85 L Absolute Monocytes (0.11-0.7) k/cumm 0.60 Absolute Eosinophils (0.0-0.7) k/cumm 0.04 Absolute Basophils (0.0-0.2) k/cumm 0.02 PT (9.3-11.0) sec INR (0.9-1.1) APTT (21.0-31.4) sec VBG pH (7.32-7.43) VBG pCO2 (34-47) mm/Hg VBG pO2 (28-44) mm/Hg VBG HCO3 (22-28) mmol/L VBG Total CO2 (22-29) mmol/L VBG O2 Saturation (70-80) % VBG Base Excess (-3-3) mmol/L Sodium (136-145) mmol/L 136 Potassium (3.5-5.1) mmol/L 4.2 Chloride (98-107) mmol/L 99 Carbon Dioxide (21.0-32.0) mmol/L 23.7 Anion Gap (3-11) mmol/L 13.3 H BUN (7-18) mg/dL 9 Creatinine (0.55-1.02) mg/dL 0.82 Estimated GFR/1.73 m2 (mL/min/1.73m2) >= 60.00 Glucose (70-100) mg/dL 127 H Lactate (0.6-1.4) mmol/l 1.5 H Calcium (8.5-10.1) mg/dL 9.5 Total Bilirubin (0.2-1.0) mg/dL 0.3 AST (15-37) U/L 73 H ALT (12-78) U/L 70 Alkaline Phosphatase (46-116) U/L 101 Troponin I (0.00-0.06) ng/mL < 0.02 NT-Pro-B Natriuret Pep ( - 299) pg/mL 88 Total Protein (6.4-8.2) g/dL 7.8 Albumin (3.4-5.0) g/dL 3.6 TSH (0.358-3.74) uIU/mL 6.56 H Range/Units 08/19/18 08/19/18 12:50 12:50 WBC (4.4-10.8) k/cumm RBC (4.00-5.20) m/cumm Hgb (12.0-15.5) g/dL Hct (36.0-46.0) % MCV (80-95) fL MCH (27.0-33.0) pg MCHC (32.0-36.0) g/dL RDW (11.7-14.6) % Plt Count (130-400) x1000/uL MPV (8.0-11.0) fL Immature Gran % Neutrophils % Lymphocytes % Monocytes % Eosinophils % Basophils % Absolute Neutrophils (1.2-6.7) k/cumm Absolute Lymphocytes (1.2-3.4) k/cumm Absolute Monocytes (0.11-0.7) k/cumm Absolute Eosinophils (0.0-0.7) k/cumm Absolute Basophils (0.0-0.2) k/cumm PT (9.3-11.0) sec 9.7 INR (0.9-1.1) 1.0 APTT (21.0-31.4) sec 23.4 VBG pH (7.32-7.43) 7.41 VBG pCO2 (34-47) mm/Hg 38 VBG pO2 (28-44) mm/Hg 74 H VBG HCO3 (22-28) mmol/L 24 VBG Total CO2 (22-29) mmol/L 21 L VBG O2 Saturation (70-80) % 95 H VBG Base Excess (-3-3) mmol/L -1.0 Sodium (136-145) mmol/L Potassium (3.5-5.1) mmol/L Chloride (98-107) mmol/L Carbon Dioxide (21.0-32.0) mmol/L Anion Gap (3-11) mmol/L BUN (7-18) mg/dL Creatinine (0.55-1.02) mg/dL Estimated GFR/1.73 m2 (mL/min/1.73m2) Glucose (70-100) mg/dL Lactate (0.6-1.4) mmol/l Calcium (8.5-10.1) mg/dL Total Bilirubin (0.2-1.0) mg/dL AST (15-37) U/L ALT (12-78) U/L Alkaline Phosphatase (46-116) U/L Troponin I (0.00-0.06) ng/mL NT-Pro-B Natriuret Pep ( - 299) pg/mL Total Protein (6.4-8.2) g/dL Albumin (3.4-5.0) g/dL TSH (0.358-3.74) uIU/mL
[2018-08-19] MEDS: cefTRIAXone 2 GM/50 ML BAG IVPB (15:33)
--- NOTE | 2018-08-19 16:09 | HPE_ITS ---
Date of service: 08/19/18 Time of Service: 15:53 Assessment and Plan (1) COPD exacerbation: Current visit: Yes Status: Acute Ongoing tobacco use not helpful. Probable infectious trigger. Chest x- ray equivocal in terms of a definite pneumonia but will treat as such. Chronically on steroids and oxygen at home. I do not think there is a cardiac contributor to her presentation. I am not sure how good her inhaler technique is and she does not have a nebulizer at home now. From a treatment standpoint will continue oxygen supplementation, albuterol via nebulizer, try using Symbicort and Spiriva to replace Trelegy which we do not have on formulary. Monitor inhaler technique and if it is poor perhaps all inhaled medications may need to be administered by nebulizer. Will bump up her steroids and give orally after her ER doses of parenteral steroid. We will continue with doxycycline orally and IV ceftriaxone and monitor clinical response. She does not want to be intubated but is not opposed to BiPAP. At this point from a respiratory standpoint does not appear to be approaching respiratory failure. (2) Pneumonitis: Current visit: Yes Status: Acute Chest x-ray equivocal. Management as above. (3) Hypothyroidism (acquired): Current visit: Yes Status: Acute TSH slightly high but free T4 is normal. No change in outpatient dose of thyroid replacement. (4) Anxiety disorder: Current visit: Yes Status: Chronic No change in her outpatient medications for mood disorder. (5) DJD of left shoulder: Current visit: Yes Status: Chronic Ongoing. Not a surgical candidate because of lung disease. Continue meloxicam as needed and gabapentin. History of Present Illness Chief Complaint: Increasing cough and shortness of breath Narrative: 58-year-old woman with O2 and steroid-dependent COPD who still smokes about a half a pack a day, presented to the emergency room with increasing shortness of breath and cough for the past 4 to 5 days. No fevers or chills. Has had some nasal congestion. Increasing sputum production that is green but not bloody. Increasing shortness of breath with exertion and at rest. No increased weight as far she knows of no ankle swelling and no known history of heart failure. She does not have a home nebulizer having left it at her daughter's where she stayed during the winter. Now living in her own space with mangle roll operator trying to help her find placement in some form of assisted living. She has help with shopping, does a little bit of meal prep, independent with bathing and dressing to get short of breath doing so. Was on antibiotics about a month ago but nothing recent. States that she has not missed doses of any of her medications including her Trelegy inhaler. She has a past history of severe respiratory distress and was intubated last summer. She informed me that she never wants to be on a ventilator again even if the outcome is . She also informs me she does not want CPR initiated if her heart were to stop beating. Recently started on lisinopril by her PCP, within the past 2 weeks. Has not developed any dry cough as a consequence of this. In the emergency room she was in moderate respiratory distress, SaO2 initially in the mid 80% on 3 L but improved after neb treatments into the low 90% low 90% range. She states that her home SaO2 meter usually is in the low 90s on 3 L. She received IV Solu-Medrol in the ER, dose of IV doxycycline and ceftriaxone as well as albuterol/ipratropium neb treatments has felt a little bit better since. She is now being admitted with COPD exacerbation attributed to infectious tr igger. Review of Systems Review of Systems No known fevers. Has multiple bruises from minor trauma with her chronic stero ids but no overt bleeding. No epistaxis. Dentures upper and does not wear any below and denies any trouble swallowing. No choking episodes. No dysphasia. No pleuritic chest pain or anginal type chest pain. No abdominal pains. Mild constipation. No dysuria or urinary incontinence. No claudication-like symptoms. No ankle swelling. Fair sleep. No recent exacerbations of anxiety or depressed mood. Reports very little alcohol use in recent weeks. Vague when I ask to try to quantitate this. [facility] Medical History Anxiety disorder (Chronic) Respiratory failure (Acute) COPD exacerbation (Acute) Hypothyroidism (acquired) (Acute) Pulmonary histiocytosis x (Acute) Bipolar disorder (Acute) Nicotine dependence with current use (Acute) Hx of hysterectomy (Chronic) Surgical History History of right shoulder replacement (Acute) Hx of bilateral cataract extraction (Acute) Hx of section (Chronic) Social History Smoking/Tobacco Use Status: Current every day Tobacco Type: cigarettes Smoking cigarettes per day: 10 Tobacco: How many years used: 40 Alcohol Intake: current Alcohol Intake frequency: a few times a week Alcohol type: beer Counseling given: Yes Details: says she is in AA and talks to her sponsor daily, drinking at 9 am @ visit Drug use: Current Sobriety Substance use type: does not use Adopted: Yes Caregiver/Support person: No Foster care: Yes Household members: none Housing: apartment Number of Children: 1 number of grandchildren: 1 Pets and animals: No What is your relationship status?: How often do you get together with friends or relatives?: three or more times per week Panel score (0-1 are the most socially isolated patients): 1 What type of physical activity do you participate in: none Do you feel safe at home: Yes Meds Home Medications Medication Instructions Recorded Confirmed Type albuterol sulfate [ProAir HFA] 2 puff INHALATION Q4H PRN PRN 01/01/16 08/19/18 History citalopram 40 mg PO DAILY 01/03/16 08/19/18 History risperidone [Risperdal] 1.5 mg PO HS 01/03/16 08/19/18 History levothyroxine [Synthroid] 75 mcg PO DAILY #90 tab 06/25/16 08/19/18 Rx magnesium oxide 800 mg PO BID #60 tab 06/25/16 08/19/18 Rx polyethylene glycol 3350 17 gm PO BID PRN PRN packet 06/25/16 08/19/18 Rx epinephrine [EpiPen 2-Janes] 0.3 mg IM PRN PRN 07/10/16 08/19/18 History ibuprofen 800 mg PO TID 07/29/16 08/19/18 History omeprazole 40 mg PO DAILY 07/29/16 08/19/18 History trazodone 100 mg PO HS PRN 08/04/16 08/19/18 History zolpidem [Ambien] 10 mg PO HS PRN PRN 08/04/16 08/19/18 History Clemente-Citrate 1 tab PO DAILY 12/04/16 08/19/18 History ipratropium-albuterol 3 ml UPD Q6H 30 Days #1 b 05/17/17 08/19/18 Rx bupropion HCl [Wellbutrin] 300 mg PO DAILY 10/06/17 08/19/18 History Trelegy Ellipta 1 inh INHALATION DAILY 08/03/18 08/19/18 History gabapentin 400 mg PO TID 08/19/18 08/19/18 History lisinopril 5 mg PO DAILY 08/19/18 08/19/18 History meloxicam 15 mg PO DAILY PRN 08/19/18 08/19/18 History prednisone 10 mg PO DAILY 08/19/18 08/19/18 History Allergies Allergy/AdvReac Type Severity Reaction Status Date / Time venom-honey bee Allergy Severe Anaphylaxsi Verified 08/19/18 13:58 s Exam Narrative Exam Narrative: Cushingoid appearing woman in no acute respiratory distress, prolonged expiratory phase with faint audible wheezing without stethoscope. Sinus rhythm on monitor. Pulse rate in the 90s. SaO2 on 3 L 94%. Blood pressure 101/58. Sclera anicteric. Dentures upper, no thrush. Cannot see posterior pharynx well because of tissue. Cannot see neck veins because of neck size. Lungs with distant breath sounds, expiratory wheezing through all lung kern through expiration, no inspiratory wheeze or crackles heard in the upper lung kern a few crackles at the bases although breath sounds very diminished at the bases, no dullness to percussion. Heart tones quite distant pulses regular I do not hear any murmur over her wheezing. Abdomen obese soft nontender with normal bowel sounds. Multiple bruises on forearms and lower legs with no open skin lesions. No ankle edema. 1+ pulses in both feet. Symmetric movement of all extremities with antigravity power present throughout good I did not observe her walk. She sits up without assistance. She is oriented x4 with a calm affect. Results Imaging Chest x-ray: report reviewed and image reviewed Labs : 08/19/18 12:50 08/19/18 12:50 Laboratory Results - last 24 hr 08/19/18 08/19/18 08/19/18 12:50 12:50 12:50 WBC 11.05 H RBC 4.11 Hgb 13.3 Hct 39.1 MCV 95.1 H MCH 32.4 MCHC 34.0 RDW 15.4 H Plt Count 175 MPV 10.2 Immature Gran % 0.5 Neutrophils % 85.8 Lymphocytes % 7.7 Monocytes % 5.4 Eosinophils % 0.4 Basophils % 0.2 Absolute Neutrophils 9.48 H Absolute Lymphocytes 0.85 L Absolute Monocytes 0.60 Absolute Eosinophils 0.04 Absolute Basophils 0.02 PT INR APTT VBG pH VBG pCO2 VBG pO2 VBG HCO3 VBG Total CO2 VBG O2 Saturation VBG Base Excess Sodium 136 Potassium 4.2 Chloride 99 Carbon Dioxide 23.7 Anion Gap 13.3 H BUN 9 Creatinine 0.82 Estimated GFR/1.73 m2 >= 60.00 Glucose 127 H Lactate 1.5 H Calcium 9.5 Total Bilirubin 0.3 AST 73 H ALT 70 Alkaline Phosphatase 101 Troponin I < 0.02 NT-Pro-B Natriuret Pep 88 Total Protein 7.8 Albumin 3.6 TSH 6.56 H Free T4 0.87 08/19/18 08/19/18 12:50 12:50 WBC RBC Hgb Hct MCV MCH MCHC RDW Plt Count MPV Immature Gran % Neutrophils % Lymphocytes % Monocytes % Eosinophils % Basophils % Absolute Neutrophils Absolute Lymphocytes Absolute Monocytes Absolute Eosinophils Absolute Basophils PT 9.7 INR 1.0 APTT 23.4 VBG pH 7.41 VBG pCO2 38 VBG pO2 74 H VBG HCO3 24 VBG Total CO2 21 L VBG O2 Saturation 95 H VBG Base Excess -1.0 Sodium Potassium Chloride Carbon Dioxide Anion Gap BUN Creatinine Estimated GFR/1.73 m2 Glucose Lactate Calcium Total Bilirubin AST ALT Alkaline Phosphatase Troponin I NT-Pro-B Natriuret Pep Total Protein Albumin TSH Free T4 EKG low voltage compatible with chronic lung disease. Chest x-ray chronic interstitial changes, cannot tell if there is any new infiltrate. Last Vital Signs Temp 36.6 C 08/19/18 13:01 Pulse 99 H 08/19/18 14:01 Resp 15 08/19/18 14:01 BP 101/58 L 08/19/18 14:01 Pulse Ox 94 L 08/19/18 14:01
[2018-08-19] MEDS: Acetaminophen 325 MG TAB 650 MG PO (17:00)
[2018-08-19] MEDS: Normal Saline Flush 10 ML SYR IVP (17:00)
[2018-08-19] MEDS: Nicotine 14 MG/24 HR PATCH TD (17:01)
[2018-08-19] MEDS: DOXYCYCLINE 100 MG in Normal Saline 100 ML IVPB (17:01)
[2018-08-19] MEDS: Enoxaparin 40 MG/0.4 ML SYR SC (17:17)
[2018-08-19] MEDS: Albuterol 2.5 MG/3 ML INH SOLN VIAL UPD (17:47)
[2018-08-19] MEDS: Meloxicam 15 MG TAB PO (18:46)
[2018-08-19] MEDS: Nystatin POWDER 15 GM JAR TP (20:23)
[2018-08-19] MEDS: Budesonide/Formoterol 160/4.5 6 GM 60 PUFF INH IH (20:24)
[2018-08-19] MEDS: risperiDONE 0.5 MG TAB (20:55)
[2018-08-19] MEDS: risperiDONE 1 MG TAB (20:56)
[2018-08-19] MEDS: predniSONE 20 MG TAB 40 MG PO (20:56)
[2018-08-19] MEDS: Gabapentin 400 MG CAP PO (20:56)
[2018-08-19] MEDS: Magnesium Oxide 400 MG TAB 800 MG PO (20:56)
[2018-08-19] MEDS: traZODone 100 MG TAB PO (20:56)
[2018-08-19] MEDS: Zolpidem 5 MG TAB 10 MG PO (20:56)
[2018-08-20] VITALS (7 sets, daily range): BP systolic 111–130; BP diastolic 70–83; PULSE 76–95; RESP 2–19; TEMP 36.3–36.9; O2SAT 97–100
[2018-08-20] MEDS: Acetaminophen 325 MG TAB 650 MG PO ×4 (04:02→21:24)
[2018-08-20] MEDS: Levothyroxine 75 MCG TAB PO (06:35)
[2018-08-20] MEDS: Doxycycline Hyclate 100 MG CAP PO ×2 (06:35→18:03)
[2018-08-20 07:14] LABS: HCT 37.6 % (36.0-46.0); HGB 12.5 g/dL (12.0-15.5); Mean Corp. HGB Concentration 33.2 g/dL (32.0-36.0); Mean Corpuscular Hemoglobin 31.8 pg (27.0-33.0); Mean Corpuscular Volume 95.7 fL (80-95); Mean Platelet Volume 10.3 fL (8.0-11.0); Platelet Count 178 x1000/uL (130-400); RBC 3.93 m/cumm (4.00-5.20); RBC Distribution Width 15.3 % (11.7-14.6); White Blood Cell Count 9.42 k/cumm (4.4-10.8)
[2018-08-20 07:16] LABS: BUN 13 mg/dL (7-18); CREATININE 1.02 mg/dL (0.55-1.02); Calcium 9.4 mg/dL (8.5-10.1); Chloride 98 mmol/L (98-107); Estimated GFR 56.06 (mL/min/1.73m2); Glucose 193 mg/dL (70-100); Potassium 4.6 mmol/L (3.5-5.1); Sodium 134 mmol/L (136-145)
--- NOTE | 2018-08-20 07:55 | PDOC.CMIN ---
- If Service Date Differs Date of service: 08/20/18 Time of Service: 07:55 Care Management Initial Assess REASON FOR HOSPITALIZATION:: COPD Exacerbation PAST MEDICAL HISTORY/PAST SURGICAL HISTORY:: Medical History . Anxiety disorder (Chronic). Respiratory failure (Acute). COPD exacerbation (Acute). Hypothyroidism (acquired) (Acute). Pulmonary histiocytosis x (Acute). Bipolar disorder (Acute). Nicotine dependence with current use (Acute). Hx of hysterectomy (Chronic). Surgical History: History of right shoulder replacement (Acute). Hx of bilateral cataract extraction (Acute). Hx of section (Chronic) PREVIOUS FUNCTIONAL STATUS/SOCIAL/FAMILY SUPPORTS:: Goldie lives alone in a 4th floor efficiency apartment in [facility]. The building has an elevator, so stair climbing is not required. 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 She states she has a strong support system of family and friends. She is independent with ADLs but states she might need a little help when she goes home. She uses a quad cane and sometimes a walker or wheelchair if she goes to the store. Goldie shared that she also sees Lorena Lindsey ([facility]) twice a week for mental health counseling. CURRENT FUNCTIONAL STATUS:: Goldie was sitting up in the chair during CM visit. She was pleasant and engaged readily in conversation. She says she has been sick for about a week. She states that there was a problem with her oxygen tubing at home so she did not get as much oxygen as she was supposed to. That problem has since been fixed. Goldie says she feels much better and hopes to go home tomorrow. She shared that she has just received approval for CF and that she begin receiving Meals on Wheels on Wednesday. ADVANCE DIRECTIVES:: none on file at [facility] Has patient been provided with information about the portal?: No Did the patient sign up for the portal?: No CODE STATUS:: DNR/DNI INSURANCE COVERAGE / FINANCIAL ISSUES:: Medicaid [place] CURRENT HOME/COMMUNITY SERVICES/EQUIPMENT:: Goldie has home oxygen at 3L continuously. She uses bipap for sleep and also has a nebulizer. She has a quad cane and a walker. She has just been approved for CFC. She states she will begin receiving Meals on Wheels on Wednesday. PRIMARY CARE PHYSICIAN:: Remy Elizalde POTENTIAL DISCHARGE NEEDS:: Goldie may benefit from new home health services of nursing, OT and PT when discharged. She will need to follow up with her PCP and the discharge plan of care. PATIENT/FAMILY EDUCATION NEEDS:: Discharge plan, limitations, follow up plan and Ask Me Three. ANTICIPATED BARRIERS TO DISCHARGE:: None identified TRANSPORTATION:: via private automobile with family or friends when ready. PLAN:: Goldie remains acute level of care. She is receiving oxygen, steroids antibiotics and pulmonary support for her pneumonia. She will be discharged home when ready, likely with new home health services of OT, PT and nursing. CM will continue to provide support to patient, family and discharge planning process.
--- NOTE | 2018-08-20 08:04 | INITIAL_ITS ---
- If Service Date Differs Date of service: 08/20/18 Time of Service: 07:55 Care Management Initial Assess REASON FOR HOSPITALIZATION:: COPD Exacerbation PAST MEDICAL HISTORY/PAST SURGICAL HISTORY:: Medical History . Anxiety disorder (Chronic). Respiratory failure (Acute). COPD exacerbation (Acute). Hypothyroidism (acquired) (Acute). Pulmonary histiocytosis x (Acute). Bipolar disorder (Acute). Nicotine dependence with current use (Acute). Hx of hysterectomy (Chronic). Surgical History: History of right shoulder replacement (Acute). Hx of bilateral cataract extraction (Acute). Hx of section (Chronic) PREVIOUS FUNCTIONAL STATUS/SOCIAL/FAMILY SUPPORTS:: Goldie lives alone in a 4th floor efficiency apartment in [facility]. The building has an elevator, so stair climbing is not required. 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 She states she has a strong support system of family and friends. She is independent with ADLs but states she might need a little help when she goes home. She uses a quad cane and sometimes a walker or wheelchair if she goes to the store. Goldie shared that she also sees Lorena Lindsey ([facility]) twice a week for mental health counseling. CURRENT FUNCTIONAL STATUS:: Goldie was sitting up in the chair during CM visit. She was pleasant and engaged readily in conversation. She says she has been sick for about a week. She states that there was a problem with her oxygen tubing at home so she did not get as much oxygen as she was supposed to. That problem has since been fixed. Goldie says she feels much better and hopes to go home tomorrow. She shared that she has just received approval for CF and that she begin receiving Meals on Wheels on Wednesday. ADVANCE DIRECTIVES:: none on file at [facility] Has patient been provided with information about the portal?: No Did the patient sign up for the portal?: No CODE STATUS:: DNR/DNI INSURANCE COVERAGE / FINANCIAL ISSUES:: Medicaid [place] CURRENT HOME/COMMUNITY SERVICES/EQUIPMENT:: Goldie has home oxygen at 3L continuously. She uses bipap for sleep and also has a nebulizer. She has a quad cane and a walker. She has just been approved for CFC. She states she will begin receiving Meals on Wheels on Wednesday. PRIMARY CARE PHYSICIAN:: Remy Elizalde POTENTIAL DISCHARGE NEEDS:: Goldie may benefit from new home health services of nursing, OT and PT when discharged. She will need to follow up with her PCP and the discharge plan of care. PATIENT/FAMILY EDUCATION NEEDS:: Discharge plan, limitations, follow up plan and Ask Me Three. ANTICIPATED BARRIERS TO DISCHARGE:: None identified TRANSPORTATION:: via private automobile with family or friends when ready. PLAN:: Goldie remains acute level of care. She is receiving oxygen, steroids antibiotics and pulmonary support for her pneumonia. She will be discharged home when ready, likely with new home health services of OT, PT and nursing. CM will continue to provide support to patient, family and discharge planning process.
[2018-08-20] MEDS: Budesonide/Formoterol 160/4.5 6 GM 60 PUFF INH IH ×2 (08:05→20:01)
[2018-08-20] MEDS: Omeprazole 20 MG CAPCR 40 MG PO (08:13)
[2018-08-20] MEDS: Gabapentin 400 MG CAP PO ×3 (09:09→20:01)
[2018-08-20] MEDS: Citalopram 20 MG TAB 40 MG PO (09:10)
[2018-08-20] MEDS: predniSONE 20 MG TAB 40 MG PO ×2 (09:10→20:01)
[2018-08-20] MEDS: Lisinopril 5 MG TAB PO (09:11)
[2018-08-20] MEDS: Nystatin POWDER 15 GM JAR TP ×2 (09:11→20:02)
[2018-08-20] MEDS: Albuterol 2.5 MG/3 ML INH SOLN VIAL UPD ×3 (09:49→17:35)
[2018-08-20 10:31] LABS: Magnesium 2.1 mg/dL (1.8-2.4)
[2018-08-20] MEDS: Magnesium Oxide 400 MG TAB 800 MG PO ×2 (11:25→21:24)
[2018-08-20] MEDS: buPROPion-XL 150 MG TABCR 300 MG PO (11:25)
--- NOTE | 2018-08-20 12:15 | W.PM.PROGNOT ---
Date of Service Date of service: 08/20/18 Time of Service: 12:16 Assessment and Plan (1) COPD exacerbation: Start date: 08/20/18 Start time: 12:24 Current visit: Yes Status: Acute Improving, requiring less oxygen today 2 L on NC at 96%, uses 3 L at home, also smokes at home. Continue steroids, updrafts, nebs, Day 2 doxy and transitioned from ceftriaxone to ceftin PO. Lungs sounds with rales in bases and rhonchi throughout, thight sounding, states this is baseline. Does not seem to exhibit any worsening effort. (2) Pneumonitis: Start date: 08/20/18 Start time: 12:26 Current visit: Yes Status: Acute Chest x-ray equivocal. Management as above. (3) Hypothyroidism (acquired): Start date: 08/20/18 Start time: 12: Current visit: Yes Status: Acute TSH slightly high but free T4 is normal. No change in outpatient dose of thyroid replacement. (4) Anxiety disorder: Start date: 08/20/18 Start time: 12: Current visit: Yes Status: Chronic No change in her outpatient medications for mood disorder. (5) DJD of left shoulder: Start date: 08/20/18 Start time: 12: Current visit: Yes Status: Chronic Ongoing. Not a surgical candidate because of lung disease. Continue meloxicam as needed and gabapentin. Subjective Patient reports: no new complaints and feels better Interval history since last seen: Asking to go home. Breathing improved. Transitioned to oral ceftin from ceftriaxone. Taking oral doxycycline day 2 and steroids 40 mg PO BID. Lungs sounds with rhonchi and rales in lower bases. States this is her baseline. Blood cultures pending at this time. Continue nebs, steroids, updrafts, requiring less oxygenation at 2 L uses 3 L at home. Consider discharge home tomorrow if feeling better. Patient denies chest pain, nausea, vomiting diarrhes, SOB and abdominal pain. Exam Const General: cooperative and no acute distress Nutritional Appearance: obese HENMT Head: normal to inspection Eyes General: appearance normal, both eyes and all related structures Resp Effort & Inspection: able to speak in complete sentences, abnormal respiratory pattern and cough Auscultation: diminished lung sounds, rales and rhonchi Cardio Rate: regular rate Rhythm: regular rhythm Heart Sounds: S1 normal and S2 normal GI Inspection: obesity Palpation: soft Neuro General: alert, awake and oriented x3 Extrem Right lower extremity: edema Left lower extremity: edema Objective Objective Clinical Data: Abnormal lab results 08/19/18 08/19/18 08/19/18 Range/Units 12:50 12:50 12:50 WBC 11.05 H (4.4-10.8) k/cumm RBC (4.00-5.20) m/cumm MCV 95.1 H (80-95) fL RDW 15.4 H (11.7-14.6) % Absolute Neutrophils 9.48 H (1.2-6.7) k/cumm Absolute Lymphocytes 0.85 L (1.2-3.4) k/cumm VBG pO2 (28-44) mm/Hg VBG Total CO2 (22-29) mmol/L VBG O2 Saturation (70-80) % Sodium (136-145) mmol/L Anion Gap 13.3 H (3-11) mmol/L Glucose 127 H (70-100) mg/dL Lactate 1.5 H (0.6-1.4) mmol/l AST 73 H (15-37) U/L TSH 6.56 H (0.358-3.74) uIU/mL 08/19/18 08/20/18 08/20/18 Range/Units 12:50 06:45 06:45 WBC (4.4-10.8) k/cumm RBC 3.93 L (4.00-5.20) m/cumm MCV 95.7 H (80-95) fL RDW 15.3 H (11.7-14.6) % Absolute Neutrophils (1.2-6.7) k/cumm Absolute Lymphocytes (1.2-3.4) k/cumm VBG pO2 74 H (28-44) mm/Hg VBG Total CO2 21 L (22-29) mmol/L VBG O2 Saturation 95 H (70-80) % Sodium 134 L (136-145) mmol/L Anion Gap 13.0 H (3-11) mmol/L Glucose 193 H (70-100) mg/dL Lactate (0.6-1.4) mmol/l AST (15-37) U/L TSH (0.358-3.74) uIU/mL Vital Signs Temperature 36.5 C 08/20/18 11:19 Temperature Source Tympanic 08/20/18 11:19 Pulse 93 H 08/20/18 11:19 Pulse Rhythm Regular 08/20/18 08:15 Pulse 96 H 08/19/18 14:01 Respiratory Rate 19 08/20/18 11:19 Respiratory Effort Short of Breath 08/20/18 08:15 Respiratory Depth Shallow 08/20/18 08:15 Respiratory Pattern Irregular 08/20/18 08:15 Blood Pressure 130/83 08/20/18 11:19 Blood Pressure Mean 69 08/19/18 14:01 Blood Pressure Position Sitting 08/19/18 12:19 Pulse Oximetry 99 08/20/18 11:19 Oxygen Delivery Method Nasal Cannula 08/20/18 11:19 Oxygen Flow Rate 3 08/20/18 11:19 Pain Level 4 08/20/18 09:10 Comment 08/20/18 03:25 Intake & Output 08/19/18 08/20/18 08/20/18 23:59 11:59 23:59 Intake Total 100 / 100 200 / 200 Output Total 400 / 400 Balance 100 / 100 -200 / -200 Weight 74.843 kg 78.4 kg Intake: IV 100 / 100 Oral 200 / 200 Output: Urine 400 / 400 Other: Urine Color Straw Urine Appearance Clear Clear Urine Odor Normal Comment patient missed the hat in toilet Voiding Methods Toilet Toilet Laboratory Results WBC 9.42 k/cumm (4.4-10.8) 08/20/18 06:45 RBC 3.93 m/cumm (4.00-5.20) L 08/20/18 06:45 Hgb 12.5 g/dL (12.0-15.5) 08/20/18 06:45 Hct 37.6 % (36.0-46.0) 08/20/18 06:45 MCV 95.7 fL (80-95) H 08/20/18 06:45 MCH 31.8 pg (27.0-33.0) 08/20/18 06:45 MCHC 33.2 g/dL (32.0-36.0) 08/20/18 06:45 RDW 15.3 % (11.7-14.6) H 08/20/18 06:45 Plt Count 178 x1000/uL (130-400) 08/20/18 06:45 MPV 10.3 fL (8.0-11.0) 08/20/18 06:45 Immature Gran % 0.5 08/19/18 12:50 Neutrophils % 85.8 08/19/18 12:50 Lymphocytes % 7.7 08/19/18 12:50 Monocytes % 5.4 08/19/18 12:50 Eosinophils % 0.4 08/19/18 12:50 Basophils % 0.2 08/19/18 12:50 Absolute Neutrophils 9.48 k/cumm (1.2-6.7) H 08/19/18 12:50 Absolute Lymphocytes 0.85 k/cumm (1.2-3.4) L 08/19/18 12:50 Absolute Monocytes 0.60 k/cumm (0.11-0.7) 08/19/18 12:50 Absolute Eosinophils 0.04 k/cumm (0.0-0.7) 08/19/18 12:50 Absolute Basophils 0.02 k/cumm (0.0-0.2) 08/19/18 12:50 PT 9.7 sec (9.3-11.0) 08/19/18 12:50 INR 1.0 (0.9-1.1) 08/19/18 12:50 APTT 23.4 sec (21.0-31.4) 08/19/18 12:50 VBG pH 7.41 (7.32-7.43) 08/19/18 12:50 VBG pCO2 38 mm/Hg (34-47) 08/19/18 12:50 VBG pO2 74 mm/Hg (28-44) H 08/19/18 12:50 VBG HCO3 24 mmol/L (22-28) 08/19/18 12:50 VBG Total CO2 21 mmol/L (22-29) L 08/19/18 12:50 VBG O2 Saturation 95 % (70-80) H 08/19/18 12:50 VBG Base Excess -1.0 mmol/L (-3-3) 08/19/18 12:50 Sodium 134 mmol/L (136-145) L 08/20/18 06:45 Potassium 4.6 mmol/L (3.5-5.1) 08/20/18 06:45 Chloride 98 mmol/L (98-107) 08/20/18 06:45 Carbon Dioxide 23.0 mmol/L (21.0-32.0) 08/20/18 06:45 Anion Gap 13.0 mmol/L (3-11) H 08/20/18 06:45 BUN 13 mg/dL (7-18) 08/20/18 06:45 Creatinine 1.02 mg/dL (0.55-1.02) 08/20/18 06:45 Estimated GFR/1.73 m2 56.06 (mL/min/1.73m2) 08/20/18 06:45 Glucose 193 mg/dL (70-100) H 08/20/18 06:45 Lactate 1.5 mmol/l (0.6-1.4) H 08/19/18 12:50 Calcium 9.4 mg/dL (8.5-10.1) 08/20/18 06:45 Magnesium 2.1 mg/dL (1.8-2.4) 08/20/18 06:45 Total Bilirubin 0.3 mg/dL (0.2-1.0) 08/19/18 12:50 AST 73 U/L (15-37) H 08/19/18 12:50 ALT 70 U/L (12-78) 08/19/18 12:50 Alkaline Phosphatase 101 U/L (46-116) 08/19/18 12:50 Troponin I < 0.02 ng/mL (0.00-0.06) 08/19/18 12:50 NT-Pro-B Natriuret Pep 88 pg/mL (-299) 08/19/18 12:50 Total Protein 7.8 g/dL (6.4-8.2) 08/19/18 12:50 Albumin 3.6 g/dL (3.4-5.0) 08/19/18 12:50 TSH 6.56 uIU/mL (0.358-3.74) H 08/19/18 12:50 Free T4 0.87 ng/dL (0.76-1.46) 08/19/18 12:50
[2018-08-20] MEDS: Cefuroxime 500 MG TAB PO ×2 (12:43→20:01)
[2018-08-20] MEDS: traMADol 50 MG TAB PO (15:50)
[2018-08-20] MEDS: Enoxaparin 40 MG/0.4 ML SYR SC (18:04)
[2018-08-20] MEDS: traZODone 100 MG TAB PO (21:24)
[2018-08-20] MEDS: Zolpidem 5 MG TAB 10 MG PO (21:24)
[2018-08-20] MEDS: risperiDONE 1 MG TAB 1.5 MG PO (21:24)
[2018-08-21 03:00] VITALS: BP 112/67; PULSE 79; RESP 18; TEMP 36.6; O2SAT 96
[2018-08-21] MEDS: traMADol 50 MG TAB PO (03:18)
[2018-08-21] MEDS: Doxycycline Hyclate 100 MG CAP PO (05:31)
[2018-08-21] MEDS: Levothyroxine 75 MCG TAB PO (05:31)
[2018-08-21 07:16] LABS: Absolute Basophil Count 0.01 k/cumm (0.0-0.2); Absolute Eosinophil Count 0.01 k/cumm (0.0-0.7); Basophils % 0.1; Eosinophils % 0.1; HCT 39.6 % (36.0-46.0); HGB 13.2 g/dL (12.0-15.5); Immature Grans % 0.8; Lymphocytes % 4.7; Mean Corp. HGB Concentration 33.3 g/dL (32.0-36.0); Mean Corpuscular Hemoglobin 32.2 pg (27.0-33.0); Mean Corpuscular Volume 96.6 fL (80-95); Mean Platelet Volume 9.8 fL (8.0-11.0); Monocytes % 5.8; Neutrophils % 88.5; Platelet Count 189 x1000/uL (130-400); RBC Distribution Width 15.5 % (11.7-14.6); White Blood Cell Count 12.02 k/cumm (4.4-10.8)
[2018-08-21 07:22] LABS: Anion Gap 10.4 mmol/L (3-11); BUN 16 mg/dL (7-18); CO2 27.6 mmol/L (21.0-32.0); CREATININE 0.86 mg/dL (0.55-1.02); Calcium 9.5 mg/dL (8.5-10.1); Chloride 99 mmol/L (98-107); Glucose 147 mg/dL (70-100); Magnesium 2.2 mg/dL (1.8-2.4); Potassium 5.1 mmol/L (3.5-5.1); Sodium 137 mmol/L (136-145)
[2018-08-21] MEDS: Albuterol 2.5 MG/3 ML INH SOLN VIAL UPD (07:37)
[2018-08-21 07:39] LABS: Absolute Lymphocyte Count 0.56 k/cumm (1.2-3.4); Absolute Neutrophil Count 10.64 k/cumm (1.2-6.7)
[2018-08-21 07:42] VITALS: BP 133/85; PULSE 89; RESP 17; TEMP 36.5; O2SAT 98
[2018-08-21] MEDS: Budesonide/Formoterol 160/4.5 6 GM 60 PUFF INH IH (07:42)
[2018-08-21] MEDS: Omeprazole 20 MG CAPCR 40 MG PO (07:56)
[2018-08-21 08:08] LABS: Procalcitonin < 0.1 ng/mL
[2018-08-21] MEDS: buPROPion-XL 150 MG TABCR 300 MG PO (08:41)
[2018-08-21] MEDS: Nicotine 14 MG/24 HR PATCH TD (08:41)
[2018-08-21] MEDS: Gabapentin 400 MG CAP PO (08:41)
[2018-08-21] MEDS: Lisinopril 5 MG TAB PO (08:42)
[2018-08-21] MEDS: Citalopram 20 MG TAB 40 MG PO (08:42)
[2018-08-21] MEDS: predniSONE 20 MG TAB 40 MG PO (08:42)
[2018-08-21] MEDS: Cefuroxime 500 MG TAB PO (08:43)
[2018-08-21] MEDS: Nystatin POWDER 15 GM JAR TP (08:43)
[2018-08-21 10:24] VITALS: PULSE 119; PULSE 125; O2SAT 91; O2SAT 96
[2018-08-21] MEDS: Magnesium Oxide 400 MG TAB 800 MG PO (10:42)
--- NOTE | 2018-08-21 11:01 | DSE_ITS ---
Date of service: 08/21/18 Time of Service: 11:00 DS: Diagnosis Discharge Diagnosis (1) COPD exacerbation: Status: Acute (2) Pneumonitis: Status: Acute (3) Hypothyroidism (acquired): Status: Acute (4) Anxiety disorder: Status: Chronic (5) DJD of left shoulder: Status: Chronic Discharge Plan Disposition Patient Disposition: HOME Condition: Good Discharge Details Reason For Visit: COPD EXACERBATION, PNEUMONIA Admit Date/Time: 08/19/18 14:59 Admit Provider: Carlo Kraft Attending Provider: Carlo Kraft [facility]: 58-year-old woman with O2 and steroid-dependent COPD who still smokes about a half a pack a day, presented to the emergency room with increasing shortness of breath and cough for the past 4 to 5 days. No fevers or chills. Has had some nasal congestion. Increasing sputum production that is green but not bloody. Increasing shortness of breath with exertion and at rest. No increased weight as far she knows of no ankle swelling and no known history of heart failure. She does not have a home nebulizer having left it at her daughter's where she stayed during the winter. Recently started on lisinopril by her PCP, within the past 2 weeks. Has not developed any dry cough as a consequence of this. In the emergency room she was in moderate respiratory distress, SaO2 initially in the mid 80% on 3 L but improved after neb treatments into the low 90% low 90% range. She states that her home SaO2 meter usually is in the low 90s on 3 L. She received IV Solu-Medrol in the ER, dose of IV doxycycline and ceftriaxone as well as albuterol/ipratropium neb treatments has felt a little bit better since. She is now being admitted with COPD exacerbation attributed to infectious tri gger. She was admitted to m/s. Course of treatment consisted of doxy and rocephin which she responded well too. Oxygen requirement at home was 3 L while in the hospital only required 2 L at 96%. Lungs with slight wheezing expiratory but clear in bases. Ambulatory oxygenation lowest saturation was 91%, maintained 96% on 3 L. Blood cultures NGTD. She will be discharged with a tapering steroid dose and completion of antibiotics. She denies chest pain, shortness of breath, nausea, vomiting, diarrhea. (1) COPD exacerbation: Improving, requiring less oxygen today 2 L on NC at 96%, uses 3 L at home, also smokes at home. Continue steroids, updrafts, nebs, Day 2 doxy and transitioned from ceftriaxone to ceftin PO. lungs clear with slight wheeze lower bases. (2) Pneumonitis: Chest x-ray equivocal. Management as above. (3) Hypothyroidism (acquired): TSH slightly high but free T4 is normal. No change in outpatient dose of thyroid replacement. (4) Anxiety disorder: No change in her outpatient medications for mood disorder. (5) DJD of left shoulder: Ongoing. Not a surgical candidate because of lung disease. Continue dominguez xicam as needed and gabapentin. Home Meds and New Rx's Prescriptions: New doxycycline hyclate 100 mg Capsule 100 mg PO Q12H Qty: 6 RF: 0 prednisone 20 mg Tablet 40 mg PO BID Qty: 4 RF: 0 cefuroxime axetil 500 mg Tablet 500 mg PO BID Qty: 6 RF: 0 Symbicort 160-4.5 mcg/actuation Hfa Aerosol Inhaler 2 puff Inhalation BID Qty: 6 RF: 0 prednisone 10 mg tablet 10 mg PO DAILY Qty: 30 RF: 0 Continued albuterol sulfate [ProAir HFA] 8.5 GM HFA aerosol inhaler 2 puff Inhalation Q4H PRN PRNRF: 0 citalopram 40 MG tablet 40 mg PO DAILY RF: 0 risperidone [Risperdal] 1 MG tablet 1.5 mg PO HS RF: 0 ibuprofen 800 MG tablet 800 mg PO TID RF: 0 omeprazole 20 MG capsule,delayed release(DR/EC) 40 mg PO DAILY RF: 0 trazodone 100 MG tablet 100 mg PO HS PRNRF: 0 zolpidem [Ambien] 5 MG tablet 10 mg PO HS PRN PRNRF: 0 levothyroxine [Synthroid] 75 MCG tablet 75 mcg PO DAILY Qty: 90 RF: 0 polyethylene glycol 3350 17 GM powder in packet 17 gm PO BID PRN PRNRF: 0 magnesium oxide 400 MG tablet 800 mg PO BID Qty: 60 RF: 2 Clemente-Citrate 1 EACH tablet 1 tab PO DAILY RF: 0 Trelegy Ellipta 100-62.5-25 mcg Blister With Device 1 inh INHALATION DAILY RF: 0 epinephrine [EpiPen 2-Janes] 0.3 MG/0.3 ML auto-injector 0.3 mg IM PRN PRNRF: 0 ipratropium-albuterol 3 ML solution for nebulization 3 ml UPD Q6H 30 Days Qty: 1 RF: 1 lisinopril 5 mg Tablet 5 mg PO DAILY RF: 0 gabapentin 400 mg Capsule 400 mg PO TID RF: 0 meloxicam 15 mg Tablet 15 mg PO DAILY PRNRF: 0 bupropion HCl 300 mg Tablet Extended Release 24 Hr 300 mg PO QAM RF: 0 Discontinued prednisone 10 mg Tablet 10 mg PO DAILY RF: 0 Discharge Instructions Instructions: Acute Respiratory Distress Syndrome (GEN), COPD (Chronic Obstructive Pulmonary Disease) (GEN), Community Acquired Pneumonia (GEN), Self- Care Measures with a Chronic Disease (GEN) Additional Instructions: Follow up with your PCP in 1 week. Take all prescriptions as prescribed. Take your steroids as prescribed. Finish all of your antibiotics. Eat a yogurt daily while on antibiotics. Seek Medical treatment immediately if you have chest pain, shortness of breath, nausea, vomiting diarrhea. Stand Alone Forms: Nursing Discharge Form Referrals: Remy Ortega [Primary Care Provider] - (Please call PCP office Wednesday morning to make a follow-up appointment.) Activity:: Activity as Tolerated Equipment/Supplies:: No Equipment Needed Diet:: As Tolerated Discharge Orders Discharge Orders: Discharge Order (Routine); Ordered 08/21/18 Ordered By: Cindy De La Garza Exam Const General: cooperative and no acute distress Nutritional Appearance: obese HENMT Head: normal to inspection Eyes General: appearance normal, both eyes and all related structures Resp Effort & Inspection: able to speak in complete sentences and abnormal respiratory pattern Auscultation: clear to auscultation bilaterally and wheezes (slight) expiratory wheezes Cardio Jugular venous pressure: no JVD Rate: regular rate Rhythm: regular rhythm Heart Sounds: S1 normal and S2 normal GI Inspection: obesity Palpation: soft Neuro General: alert, awake and oriented x3 Extrem Right lower extremity: edema Left lower extremity: edema DS: Data Vitals/I&O Vitals and I&O: Vital Signs Temperature 36.5 C 08/21/18 07:42 Temperature Source Tympanic 08/21/18 07:42 Pulse 89 08/21/18 07:42 Pulse Rhythm Regular 08/20/18 19:17 Pulse 96 H 08/19/18 14:01 Respiratory Rate 17 08/21/18 07:42 Respiratory Effort 08/20/18 19:17 Respiratory Depth Normal 08/20/18 19:17 Respiratory Pattern Normal 08/20/18 19:17 Blood Pressure 133/85 08/21/18 07:42 Blood Pressure Mean 69 08/19/18 14:01 Blood Pressure Position Sitting 08/19/18 12:19 Pulse Oximetry 98 08/21/18 07:42 Oxygen Delivery Method Nasal Cannula 08/21/18 07:42 Oxygen Flow Rate 3 08/21/18 07:42 Pain Level 7 08/21/18 03:18 Comment 08/21/18 03:00 Intake & Output 08/20/18 08/20/18 08/21/18 11:59 23:59 11:59 Intake Total 200 / 680 480 / 680 550 / 550 Output Total 400 / 1250 850 / 1250 925 / 925 Balance -200 / -570 -370 / -570 -375 / -375 Weight 78.4 kg 78.7 kg Intake: Oral 200 / 680 480 / 680 550 / 550 Output: Urine 400 / 1250 850 / 1250 925 / 925 Other: Urine Color Straw Pale Yellow Yellow Urine Appearance Clear Clear Clear Urine Odor Normal None Normal Comment pt voids independently in the bathroom Voiding Methods Toilet Toilet Toilet Completed studies during hospitalization [Text1]: Exam(s) a RAD:XR chest 2V PA & lateral SYMPTOMS/DIAGNOSIS: RHONCHI, SHORTNESS OF BREATH, PRODUCTIVE COUGH CHEST X-RAY, FRONTAL AND LATERAL VIEWS: Comparison is 07/31/18. The heart size and pulmonary vasculature are within normal limits. There is diffuse prominence of the interstitium, which appears grossly unchanged and likely is chronic. No focal consolidating infiltrates, effusions or pneumothoraces are identified. Degenerative changes are seen in the spine. IMPRESSION: No definite acute pulmonary process. Labs on day of discharge: Labs from last 24 hours 08/21/18 08/21/18 08/21/18 07:05 07:05 07:05 WBC 12.02 H RBC 4.10 Hgb 13.2 Hct 39.6 MCV 96.6 H MCH 32.2 MCHC 33.3 RDW 15.5 H Plt Count 189 MPV 9.8 Immature Gran % 0.8 Neutrophils % 88.5 Lymphocytes % 4.7 Monocytes % 5.8 Eosinophils % 0.1 Basophils % 0.1 Absolute Neutrophils 10.64 H Absolute Lymphocytes 0.56 L Absolute Monocytes 0.70 Absolute Eosinophils 0.01 Absolute Basophils 0.01 Sodium 137 Potassium 5.1 Chloride 99 Carbon Dioxide 27.6 Anion Gap 10.4 BUN 16 Creatinine 0.86 Estimated GFR/1.73 m2 >= 60.00 Glucose 147 H Calcium 9.5 Magnesium 2.2 Procalcitonin < 0.1 Preliminary micro results at discharge 08/19/18 13:26 Blood Culture - Preliminary Blood NO GROWTH 24 HOURS 08/19/18 12:50 Blood Culture - Preliminary Blood NO GROWTH 24 HOURS PFSH Medical History Anxiety disorder (Chronic) Respiratory failure (Acute) COPD exacerbation (Acute) Hypothyroidism (acquired) (Acute) Pulmonary histiocytosis x (Acute) Bipolar disorder (Acute) Nicotine dependence with current use (Acute) Hx of hysterectomy (Chronic) Surgical History History of right shoulder replacement (Acute) Hx of bilateral cataract extraction (Acute) Hx of section (Chronic) Social History Smoking/Tobacco Use Status: Current every day Tobacco Type: cigarettes Smoking cigarettes per day: 10 Tobacco: How many years used: 40 Alcohol Intake: current Alcohol Intake frequency: a few times a week Alcohol type: beer Counseling given: Yes Details: says she is in AA and talks to her sponsor daily, drinking at 9 am @ visit Drug use: Current Sobriety Substance use type: does not use Adopted: Yes Caregiver/Support person: No Foster care: Yes Household members: none Housing: apartment Number of Children: 1 number of grandchildren: 1 Pets and animals: No What is your relationship status?: How often do you get together with friends or relatives?: three or more times per week Panel score (0-1 are the most socially isolated patients): 1 What type of physical activity do you participate in: none Do you feel safe at home: Yes
[2018-08-21 11:17] VITALS: BP 134/80; PULSE 100; RESP 18; TEMP 37; O2SAT 98
--- NOTE | 2018-08-21 11:23 | PDOC.HHF2F ---
1. Encounter Date and Reason I certify that SHAVON FERNANDEZ was seen by Cindy De La Garza on 08/21/18 and that I had a mehh-oy-ldxr encounter with this patient that meets the physician face to face encounter requirements. 2. Clinical Findings Supporting Skilled Need and Homebound Status I certify that home health services are medically necessary, include either intermittent senior care and/or physical/speech therapy, and that this patient is homebound in that absences from the home require considerable and taxing effort and are infrequent or of short duration, or are attributable to the need to receive medical care. [X] (a) Attached documentation from encounter provides clinical findings supporting skilled need and homebound status (including what assistance patient requires to leave the home). The encounter with the patient was in whole, or in part, for the following medical condition, which is the primary reason for home health care: COPD EXACERBATION, PNEUMONIA Retirement: Patient will need follow up for evaluation of respiratory status following COPD exacerbation with Pneumonia. Will also require medication administration of antibiotics and tapering steroid dose. 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 Speech Therapy: Homebound: 3. Certification and Authentication I certify that I composed the above information based on my clinical judgement relating to this patient's medical condition and, if applicable, clinical findings communicated to me by the NPP or inpatient physician who performed the Home Health Referral. All further orders will be obtained through (Community Based Physician - PCP)
--- NOTE | 2018-08-21 11:26 | HHF2F_ITS ---
1. Encounter Date and Reason I certify that SHAVON FERNANDEZ was seen by Cindy De La Garza on 08/21/18 and that I had a knbf-ju-owxr encounter with this patient that meets the physician face to face encounter requirements. 2. Clinical Findings Supporting Skilled Need and Homebound Status I certify that home health services are medically necessary, include either intermittent fdc and/or physical/speech therapy, and that this patient is homebound in that absences from the home require considerable and taxing effort and are infrequent or of short duration, or are attributable to the need to receive medical care. [X] (a) Attached documentation from encounter provides clinical findings supporting skilled need and homebound status (including what assistance patient requires to leave the home). The encounter with the patient was in whole, or in part, for the following medical condition, which is the primary reason for home health care: COPD EXACERBATION, PNEUMONIA Snf: Patient will need follow up for evaluation of respiratory status following COPD exacerbation with Pneumonia. Will also require medication administration of antibiotics and tapering steroid dose. 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 Speech Therapy: Homebound: 3. Certification and Authentication I certify that I composed the above information based on my clinical judgement relating to this patient's medical condition and, if applicable, clinical findings communicated to me by the NPP or inpatient physician who performed the Home Health Referral. All further orders will be obtained through (Community Based Physician - PCP)
--- NOTE | 2018-08-21 17:49 | PDOC.CMDIS ---
- If Service Date Differs Date of service: 08/21/18 Time of Service: 17:49 LACE Index Scoring Tool - Questions: Length of Stay (in days): 2 Acuity (Admit via E.D.?): Yes Comorbidities: Chronic Pulmonary Disease E.D. Visits: 6 - Answers: Total Score: 11 Risk of Readmission: High Risk Care Management Discharge Reason for Hospitalization: COPD Exacerbation Discharge Plan: Goldie will be discharged home with new home health nursing and OT. She will also be receiving Meals on Wheels beginning Wednesday. She will be transported via private vehicle by friends or relatives. She will follow up with her PCP and the discharge plan of care. Patient/Family Education Needs: Discharge plan, limitations, follow up plan and Ask Me Three. Services Needed at Discharge: Home Delivered Meals, Home Health Care Services, Occupational Therapy
== END 2018-08-21 12:20 | disposition home or self-care (01) | DRG 190 ==
LOC: ER 15:03 → MS 16:00
PROVIDERS: Nurse Practitioner Family; Admitting Provider Internal Medicine; Emergency Provider Student in an Organized Health Care Education/Training Program; PCP Family Medicine; Visit Provider Internal Medicine
DX: J44.0 Chronic obstructive pulmonary disease with (acute) lower respiratory infection (principal); J18.9 Pneumonia, unspecified organism; J44.1 Chronic obstructive pulmonary disease with (acute) exacerbation; E03.9 Hypothyroidism, unspecified; F41.9 Anxiety disorder, unspecified; M19.012 Primary osteoarthritis, left shoulder; F17.210 Nicotine dependence, cigarettes, uncomplicated; Z99.81 Dependence on supplemental oxygen; Z79.51 Long term (current) use of inhaled steroids
CPT/HCPCS: 36415; 80048; 80053; 82805; 84145; 85027; 87040; 93005; 94618; 94640; 99222; 99233; 99239; 99285; J1650; 71046; 83605; 83735; 83880; 84439; 84443; 84484; 85025; 85610; 85730; 93010; J2930; J7512; J7613; J7620

== ENCOUNTER 2018-09-10 17:39 | Inpatient (IN) | payer MEDICAID, SELFPAY ==
[2018-09-10] VITALS (12 sets, daily range): BP systolic 115; BP diastolic 76; PULSE 110–126; RESP 1–28; TEMP 36.6–37.1; O2SAT 94–98
--- NOTE | 2018-09-10 17:40 | W.ED.GENAD ---
Discharge Plan Disposition Patient Disposition: [facility] INPATIENT Condition: Fair Discharge Details Chief Complaint: SOB Clinical Impression: Acute exacerbation of chronic obstructive pulmonary disease (COPD), HCAP (healthcare-associated pneumonia), Chronic respiratory failure with hypoxia, on home O2 therapy, Alcohol abuse, daily use Admit Date/Time: 09/10/18 19:37 Admit Provider: Tarik Lindo Attending Provider: Tarik Lindo Primary Care Provider: Remy Ortega ED Provider: Lilo Hackett Discharge Data Discharge Date/Time-TO BE ENTERED AT DEPARTURE: 09/10/18 20:24 Medical Decision Making 58-year-old female with history of COPD exacerbation, anxiety, chronic former alcoholism, pulmonary histiocytosis, and chronic tobacco use who presents with shortness of breath and cough for the past few days. EMS 90s on her chronic 3 L in route per EMS. Patient took 60 mg of her prednisone today. She is speaking in broken sentences with labored breathing but does not appear to be in acute severe respiratory distress. Heart rate 110s. Respirations high 20s, oxygen saturation 94% on 3 L. Afebrile. She has diffuse wheezing and rhonchi throughout. We will give an 80 mg dose of Solu-Medrol IV now, screening labs, portable chest x-ray, and 12.5 mg albuterol. Upon review of records, patient was admitted here 2 weeks ago for COPD exacerbation. At that time she had stated to the hospitalist that she did not want intubation or resuscitation and was made DNR/DNI. When discussed with patient in the room, she stated she wanted her daughter to be contacted regarding decisions. Patient then states she would not want intubation but would want CPR. EKG notes a rate of 120, sinus, no acute ST elevation or depression. 1819 --patient requested BiPAP be removed. She has improvement in breath sounds, but still with labored breathing. Will continue 7.5 mg albuterol neb, and high flow nasal cannula. Chest x-ray notes a left mid and lower lobe pneumonia. With her recent hospital admission, will treat for HCAP with vanc/zosyn. She is not currently on antibiotics. Labs reviewed and note a white blood cell count of 9.55. Trop negative. Mg 1.7, will replete. BNP within normal limits. 1899 --pt now agreeable to bipap. She is still labored but no worse. Will continue bipap. She is also a daily drinker. She admits to 2 alcoholic drinks a day, last at 4 PM. Will order a dose of Ativan and check an ETOH level. 1909 --d/w hospitalist - accepts pt for admission. Lactate 1.3. Alcohol negative. Medical Records Medical records reviewed: Yes I reviewed the patient's medical records. Imaging Data Radiologic Study: Radiologist's impression: XR Chest, 1 View EXAM DATE/TIME: 09/10/2018 5:47 PM CLINICAL HISTORY: 58 years old, female; Other: Cough/ sob/ R/O pneumonia TECHNIQUE: Imaging protocol: XR of the chest, 1 view. COMPARISON: CR XR CHEST 2V PA LATERAL 08/19/2018 2:18 PM FINDINGS: Lungs: Mild left mid and lower lung field pneumonia. Stable hyperaerated lungs consistent with deep inspiratory effort vs reactive airway disease vs mild COPD . Pleural space: Unremarkable. No pleural effusion. No pneumothorax. Heart/Mediastinum: Unremarkable. No cardiomegaly. Bones/joints: Stable total right shoulder replacement. IMPRESSION: Mild left mid and lower lung field pneumonia. Lab Data Lab results reviewed: Yes I reviewed the patient's lab results. 09/10/18 19:00 Blood Blood Culture - Pending 09/10/18 18:50 Blood Blood Culture - Pending Laboratory Tests Range/Units 09/10/18 09/10/18 09/10/18 18:01 18:01 18:01 WBC (4.4-10.8) k/cumm 9.55 RBC (4.00-5.20) m/cumm 4.02 Hgb (12.0-15.5) g/dL 12.8 Hct (36.0-46.0) % 37.9 MCV (80-95) fL 94.3 MCH (27.0-33.0) pg 31.8 MCHC (32.0-36.0) g/dL 33.8 RDW (11.7-14.6) % 14.8 H Plt Count (130-400) x1000/uL 145 MPV (8.0-11.0) fL 10.5 Immature Gran % 0.5 Neutrophils % 86.0 Band Neutrophils % % 1.0 Lymphocytes % 11.0 Atypical Lymphs % 1 Monocytes % 1.0 Eosinophils % 0.0 Basophils % 0.0 Absolute Neutrophils Not Applicable Absolute Lymphocytes (1.2-3.4) k/cumm 1.15 L Absolute Monocytes (0.11-0.7) k/cumm 0.10 L Absolute Eosinophils (0.0-0.7) k/cumm 0.00 Absolute Basophils (0.0-0.2) k/cumm 0.00 Differential Comment Manual differential RBC Morphology See below Anisocytosis 1+ Sodium (136-145) mmol/L 137 Potassium (3.5-5.1) mmol/L 4.6 Chloride (98-107) mmol/L 99 Carbon Dioxide (21.0-32.0) mmol/L 24.9 Anion Gap (3-11) mmol/L 13.1 H BUN (7-18) mg/dL 9 Creatinine (0.55-1.02) mg/dL 0.82 Estimated GFR/1.73 m2 (mL/min/1.73m2) >= 60.00 Glucose (70-100) mg/dL 181 H Lactate (0.6-1.4) mmol/l Calcium (8.5-10.1) mg/dL 9.2 Magnesium (1.8-2.4) mg/dL 1.7 L Total Bilirubin (0.2-1.0) mg/dL 0.3 AST (15-37) U/L 34 ALT (12-78) U/L 31 Alkaline Phosphatase (46-116) U/L 84 Troponin I (0.00-0.06) ng/mL < 0.05 NT-Pro-B Natriuret Pep ( - 299) pg/mL 279 Total Protein (6.4-8.2) g/dL 7.8 Albumin (3.4-5.0) g/dL 3.4 Ethyl Alcohol (<3) mg/dL Range/Units 09/10/18 09/10/18 18:01 18:50 WBC (4.4-10.8) k/cumm RBC (4.00-5.20) m/cumm Hgb (12.0-15.5) g/dL Hct (36.0-46.0) % MCV (80-95) fL MCH (27.0-33.0) pg MCHC (32.0-36.0) g/dL RDW (11.7-14.6) % Plt Count (130-400) x1000/uL MPV (8.0-11.0) fL Immature Gran % Neutrophils % Band Neutrophils % % Lymphocytes % Atypical Lymphs % Monocytes % Eosinophils % Basophils % Absolute Neutrophils Absolute Lymphocytes (1.2-3.4) k/cumm Absolute Monocytes (0.11-0.7) k/cumm Absolute Eosinophils (0.0-0.7) k/cumm Absolute Basophils (0.0-0.2) k/cumm Differential Comment RBC Morphology Anisocytosis Sodium (136-145) mmol/L Potassium (3.5-5.1) mmol/L Chloride (98-107) mmol/L Carbon Dioxide (21.0-32.0) mmol/L Anion Gap (3-11) mmol/L BUN (7-18) mg/dL Creatinine (0.55-1.02) mg/dL Estimated GFR/1.73 m2 (mL/min/1.73m2) Glucose (70-100) mg/dL Lactate (0.6-1.4) mmol/l 1.3 Calcium (8.5-10.1) mg/dL Magnesium (1.8-2.4) mg/dL Total Bilirubin (0.2-1.0) mg/dL AST (15-37) U/L ALT (12-78) U/L Alkaline Phosphatase (46-116) U/L Troponin I (0.00-0.06) ng/mL NT-Pro-B Natriuret Pep ( - 299) pg/mL Total Protein (6.4-8.2) g/dL Albumin (3.4-5.0) g/dL Ethyl Alcohol (<3) mg/dL < 3.0 ECG Data Attestation: I personally reviewed and interpreted this ECG (s) as follows: Interpretation: Rate of 120, sinus, no acute ST elevation or depression. T wave inversion in V2, seen in previous EKG. QTc 458. QRS 84. HPI General Mode of arrival: ambulatory. Date/Time Provider Initiated Documentation: 09/10/18 17:45. Limitations to Documentation: no limitations. Information obtained by: patient. HPI Narrative: Patient is a 58-year-old female with a history of COPD, anxiety, pulmonary histiocytosis, chronic tobacco smoking who presents with shortness of breath and cough for the past few days. Denies any known fevers or chest pain. Patient was admitted here 2 weeks ago for COPD exacerbation and has been continued on steroids. She saw her primary care doctor in [place] yesterday and he advised that she be admitted for COPD exacerbation which she declined at that time. Patient states her primary doctor increased her steroids from 10 mg to 60 mg daily which she started today. EMS states that patient has no air-conditioning at home, and upon their arrival her residence was very hot. Patient is chronically on 3 L of nasal cannula and her oxygen saturation was in the mid 90s upon their arrival. She was given 1 neb treatment in route had some improvement. Related Data Home Medications Medication Instructions Recorded Confirmed albuterol sulfate [ProAir HFA] 2 puff INHALATION Q4H PRN PRN 01/01/16 09/10/18 citalopram 40 mg PO DAILY 01/03/16 09/10/18 risperidone [Risperdal] 1.5 mg PO HS 01/03/16 09/10/18 levothyroxine [Synthroid] 75 mcg PO DAILY #90 tab 06/25/16 09/10/18 magnesium oxide 800 mg PO BID #60 tab 06/25/16 09/10/18 polyethylene glycol 3350 17 gm PO BID PRN PRN packet 06/25/16 09/10/18 epinephrine [EpiPen 2-Janes] 0.3 mg IM PRN PRN 07/10/16 09/10/18 ibuprofen 800 mg PO TID 07/29/16 09/10/18 omeprazole 40 mg PO DAILY 07/29/16 09/10/18 trazodone 100 mg PO HS PRN 08/04/16 09/10/18 zolpidem [Ambien] 10 mg PO HS PRN PRN 08/04/16 09/10/18 Clemente-Citrate 1 tab PO DAILY 12/04/16 09/10/18 ipratropium-albuterol 3 ml UPD Q6H 30 Days #1 b 05/17/17 09/10/18 Trelegy Ellipta 1 inh INHALATION DAILY 08/03/18 09/10/18 gabapentin 400 mg PO TID 08/19/18 09/10/18 lisinopril 5 mg PO DAILY 08/19/18 09/10/18 meloxicam 15 mg PO DAILY PRN 08/19/18 09/10/18 bupropion HCl 300 mg PO QAM 08/20/18 09/10/18 budesonide-formoterol [Symbicort] 2 puff INHALATION BID #6 gm 08/21/18 09/10/18 prednisone 40 mg PO BID #4 tab 08/21/18 09/10/18 cyclobenzaprine 10 mg PO TID PRN 09/10/18 09/10/18 oxycodone 5 mg PO HS 09/10/18 09/10/18 Previous Rx's Medication Instructions Recorded levothyroxine [Synthroid] 75 mcg PO DAILY #90 tab 06/25/16 magnesium oxide 800 mg PO BID #60 tab 06/25/16 polyethylene glycol 3350 17 gm PO BID PRN PRN packet 06/25/16 ipratropium-albuterol 3 ml UPD Q6H 30 Days #1 b 05/17/17 budesonide-formoterol [Symbicort] 2 puff INHALATION BID #6 gm 08/21/18 prednisone 40 mg PO BID #4 tab 08/21/18 Allergies Allergy/AdvReac Type Severity Reaction Status Date / Time venom-honey bee Allergy Severe Anaphylaxsi Verified 09/01/18 08:51 s General ADALBERTO: 3 Review of Systems Review of Systems All systems reviewed & are unremarkable except as noted in HPI and below Constitutional Reports as per HPI, Denies chills and Denies fever(s) Eyes Denies blurry vision ENT Denies dizziness, Denies sore throat and Denies throat swelling Cardiovascular Denies chest pain and Reports dyspnea Respiratory Reports cough and Reports dyspnea Gastrointestinal Denies abdominal pain, Denies diarrhea and Denies vomiting Genitourinary Denies hematuria and Denies dysuria Musculoskeletal Denies back pain and Denies numbness Integumentary/Breasts Denies lesions and Denies rash Neurologic Denies dizziness, Denies focal weakness and Denies numbness Allergic/Immunologic Denies throat swelling [facility] Medical History Anxiety disorder (Chronic) Respiratory failure (Acute) COPD exacerbation (Acute) Hypothyroidism (acquired) (Acute) Pulmonary histiocytosis x (Acute) Bipolar disorder (Acute) Nicotine dependence with current use (Acute) Hx of hysterectomy (Chronic) Surgical History History of right shoulder replacement (Acute) Hx of bilateral cataract extraction (Acute) Hx of section (Chronic) Social History Smoking/Tobacco Use Status: Current every day Tobacco Type: cigarettes Tobacco: How many years used: 40 Alcohol Intake: current Alcohol Intake frequency: a few times a week Alcohol type: beer Counseling given: Yes Details: says she is in AA and talks to her sponsor daily, drinking at 9 am @ visit Drug use: Current Sobriety Substance use type: does not use Adopted: Yes Caregiver/Support person: No Foster care: Yes Household members: none Housing: apartment Number of Children: 1 number of grandchildren: 1 Pets and animals: No What is your relationship status?: How often do you get together with friends or relatives?: three or more times per week Panel score (0-1 are the most socially isolated patients): 1 What type of physical activity do you participate in: none Do you feel safe at home: Yes Exam Const General: cooperative, healthy appearing and no acute distress HENMT Head: normal to inspection Face and sinus: normal facial exam Eyes General: appearance normal, both eyes and all related structures Pupils: PERRL EOM: EOM intact bilaterally Neck Neck: normal visual inspection and No submandibular swelling Lymphatic: no lymphadenopathy noted Chest Chest: normal inspection of the chest and no tenderness Resp Effort & Inspection: normal respiratory effort and not able to speak in complete sentences (3-4 word sentences) Auscultation: rhonchi upper bilaterally and lower bilaterally and wheezes lower bilaterally and upper bilaterally Cardio Rate: tachycardic Rhythm: regular rhythm GI Inspection: normal to inspection and obesity Palpation: soft, not firm, not rigid and nontender Auscultation: normal bowel sounds Skin General skin exam: no rashes or lesions noted Neuro General: alert, awake and oriented x3 Cognition: normal cognition Speech: speech normal Motor: muscle tone normal throughout Sensory Exam: no sensory deficits noted Extrem General: normal to inspection, full ROM and no edema Psych Appearance: grossly normal Mental Status: mental status grossly normal Speech and Movement: speech and movement normal Affect: normal affect
--- NOTE | 2018-09-10 17:45 | DI.RAD_ITS ---
SYMPTOM/DIAGNOSIS: COUGH, SOB, R/O PNEUMONIA PORTABLE AP CHEST: 09/11 Examination was compared with today's chest CT. Findings of lingular pneumonia is seen on CT, appear to correspond with an infiltrate at the left lung base. No additional significant findings. CONCLUSION: Findings consistent with lingular pneumonia. Appropriate follow up studies requested.
[2018-09-10] MEDS: Albuterol/Ipratropium 3 ML UPD VIAL ×2 (17:56→17:59)
--- NOTE | 2018-09-10 18:00 | NUR.NOTE ---
Nursing Note: pt on BIPAP. tolerating well
[2018-09-10] MEDS: methylPREDNISolone SUCC 40 MG VIAL (18:06)
[2018-09-10 18:10] LABS: HCT 37.9 % (36.0-46.0); HGB 12.8 g/dL (12.0-15.5); Immature Grans % 0.5; Mean Corp. HGB Concentration 33.8 g/dL (32.0-36.0); Mean Corpuscular Hemoglobin 31.8 pg (27.0-33.0); Mean Corpuscular Volume 94.3 fL (80-95); Mean Platelet Volume 10.5 fL (8.0-11.0); Platelet Count 145 x1000/uL (130-400); RBC 4.02 m/cumm (4.00-5.20); RBC Distribution Width 14.8 % (11.7-14.6); White Blood Cell Count 9.55 k/cumm (4.4-10.8)
--- NOTE | 2018-09-10 18:22 | DI.VRAD_ITS ---
EXAM: XR Chest, 1 View EXAM DATE/TIME: 09/10/2018 5:47 PM CLINICAL HISTORY: 58 years old, female; Other: Cough/ sob/ R/O pneumonia TECHNIQUE: Imaging protocol: XR of the chest, 1 view. COMPARISON: CR XR CHEST 2V PA LATERAL 08/19/2018 2:18 PM FINDINGS: Lungs: Mild left mid and lower lung field pneumonia. Stable hyperaerated lungs consistent with deep inspiratory effort vs reactive airway disease vs mild COPD . Pleural space: Unremarkable. No pleural effusion. No pneumothorax. Heart/Mediastinum: Unremarkable. No cardiomegaly. Bones/joints: Stable total right shoulder replacement. IMPRESSION: Mild left mid and lower lung field pneumonia. Dictated and Authenticated by: Angel Tompkins MD. Ordering:ANDREA Nagy MD
[2018-09-10] MEDS: Albuterol 2.5 MG/3 ML INH SOLN VIAL 12.5 MG UPD (18:25)
[2018-09-10] MEDS: Normal Saline 250 ML IV (18:51)
[2018-09-10] MEDS: LORazepam 2 MG/ML VIAL 1 MG IVP (18:51)
[2018-09-10 18:55] LABS: Absolute Lymphocyte Count 1.15 k/cumm (1.2-3.4); Anisocytosis 1+; Atypical Lymphocytes % 1; Diff Comment Manual Differential
[2018-09-10 18:57] LABS: ALT 31 U/L (12-78); AST 34 U/L (15-37); Albumin 3.4 g/dL (3.4-5.0); Alkaline Phosphatase 84 U/L (46-116); Anion Gap 13.1 mmol/L (3-11); BUN 9 mg/dL (7-18); Bilirubin, Total 0.3 mg/dL (0.2-1.0); CO2 24.9 mmol/L (21.0-32.0); CREATININE 0.82 mg/dL (0.55-1.02); Calcium 9.2 mg/dL (8.5-10.1); Chloride 99 mmol/L (98-107); Glucose 181 mg/dL (70-100); Magnesium 1.7 mg/dL (1.8-2.4); Potassium 4.6 mmol/L (3.5-5.1); Sodium 137 mmol/L (136-145); Total Protein 7.8 g/dL (6.4-8.2); Troponin I < 0.05 ng/mL (0.00-0.06)
[2018-09-10 18:59] LABS: NT-proBNP 279 pg/mL
[2018-09-10 19:11] LABS: ETHANOL BLOOD < 3.0 mg/dL (<3)
[2018-09-10] MEDS: PIPERACILLIN/TAZO 3.375 GM in Normal Saline 50 ML IVPB (19:16)
[2018-09-10 19:18] LABS: Lactate-non-spesis 1.3 mmol/l (0.6-1.4)
--- NOTE | 2018-09-10 19:34 | HPE_ITS ---
Date of service: 09/10/18 Time of Service: 19:21 Assessment and Plan (1) COPD (chronic obstructive pulmonary disease): Current visit: Yes Status: Chronic COPD, possible pneumonia (reading indicates left lower and left mid though not definitive to my eye). Will continue updrafts, steroids and antibiotics (I t hink standard community coverage probably adequate given that she is home dwelling -- though did have recent hospital stay -- along with lack of fever, leukocytosis and equivocal CXR findings). Med list: Note that she is usually on Trelegy, not on Symbicort; also, just started on Oxycodone for chronic shoulder pain History of Present Illness Chief Complaint: SOB Narrative: 58 female with h/o COPD, here with 4 days of cough and SOB. Saw PCP 1 day CLIENT SUPPORT REPRESENTATIVE, admissioon advised and declined, given pulse steroids. Comes in with failute to improve. In ER tachypnea and diffuse wheezing noted, along with possible pneumonia. Given multiple updrafts, steroids and Vanco/Zosyn. Initially on BiPap, feels a little better, now on hi flow cannula. Note that ER reviewed code status and patient requests DNI. Review of Systems Review of Systems All systems reviewed & are unremarkable except as noted in HPI and below PFSH Medical History Anxiety disorder (Chronic) Respiratory failure (Acute) COPD exacerbation (Acute) Hypothyroidism (acquired) (Acute) Pulmonary histiocytosis x (Acute) Bipolar disorder (Acute) Nicotine dependence with current use (Acute) Hx of hysterectomy (Chronic) Surgical History History of right shoulder replacement (Acute) Hx of bilateral cataract extraction (Acute) Hx of section (Chronic) Social History Smoking/Tobacco Use Status: Current every day Tobacco Type: cigarettes Tobacco: How many years used: 40 Alcohol Intake: current Alcohol Intake frequency: a few times a week Alcohol type: beer Counseling given: Yes Details: says she is in AA and talks to her sponsor daily, drinking at 9 am @ visit Drug use: Current Sobriety Substance use type: does not use Adopted: Yes Caregiver/Support person: No Foster care: Yes Household members: none Housing: apartment Number of Children: 1 number of grandchildren: 1 Pets and animals: No What is your relationship status?: How often do you get together with friends or relatives?: three or more times per week Panel score (0-1 are the most socially isolated patients): 1 What type of physical activity do you participate in: none Do you feel safe at home: Yes Meds Home Medications Medication Instructions Recorded Confirmed Type albuterol sulfate [ProAir HFA] 2 puff INHALATION Q4H PRN PRN 01/01/16 09/01/18 History citalopram 40 mg PO DAILY 01/03/16 09/01/18 History risperidone [Risperdal] 1.5 mg PO HS 01/03/16 09/01/18 History levothyroxine [Synthroid] 75 mcg PO DAILY #90 tab 06/25/16 09/01/18 Rx magnesium oxide 800 mg PO BID #60 tab 06/25/16 09/01/18 Rx polyethylene glycol 3350 17 gm PO BID PRN PRN packet 06/25/16 09/01/18 Rx epinephrine [EpiPen 2-Janes] 0.3 mg IM PRN PRN 07/10/16 09/01/18 History ibuprofen 800 mg PO TID 07/29/16 09/01/18 History omeprazole 40 mg PO DAILY 07/29/16 09/01/18 History trazodone 100 mg PO HS PRN 08/04/16 09/01/18 History zolpidem [Ambien] 10 mg PO HS PRN PRN 08/04/16 09/01/18 History Clemente-Citrate 1 tab PO DAILY 12/04/16 09/01/18 History ipratropium-albuterol 3 ml UPD Q6H 30 Days #1 b 05/17/17 09/01/18 Rx Trelegy Ellipta 1 inh INHALATION DAILY 08/03/18 09/01/18 History gabapentin 400 mg PO TID 08/19/18 09/01/18 History lisinopril 5 mg PO DAILY 08/19/18 09/01/18 History meloxicam 15 mg PO DAILY PRN 08/19/18 09/01/18 History bupropion HCl 300 mg PO QAM 08/20/18 09/01/18 History budesonide-formoterol [Symbicort] 2 puff INHALATION BID #6 gm 06/16/19 06/27/19 Rx cefuroxime axetil 500 mg PO BID #6 tab 08/21/18 09/01/18 Rx doxycycline hyclate 100 mg PO Q12H #6 cap 08/21/18 09/01/18 Rx prednisone 10 mg PO DAILY #30 tab 08/21/18 09/01/18 Rx prednisone 40 mg PO BID #4 tab 08/21/18 09/01/18 Rx tramadol 50 mg tablet 50 mg PO Q8H PRN #20 tab 09/01/18 09/01/18 Rx Allergies Allergy/AdvReac Type Severity Reaction Status Date / Time venom-honey bee Allergy Severe Anaphylaxsi Verified 09/01/18 08:51 s Exam Narrative Exam Narrative: 36.6, 134/80, 122, 22, 96%. HEENT cushingoid; neck supple; lungs diffuse wheeze; heart tachy/regular, obscured by respirations; abdomen soft NT; extre trace edema; neuro Ox3, non-focal Results Labs : 09/10/18 18:01 09/10/18 18:01 Laboratory Results - last 24 hr 09/10/18 09/10/18 09/10/18 18:01 18:01 18:01 WBC 9.55 RBC 4.02 Hgb 12.8 Hct 37.9 MCV 94.3 MCH 31.8 MCHC 33.8 RDW 14.8 H Plt Count 145 MPV 10.5 Immature Gran % 0.5 Neutrophils % 86.0 Band Neutrophils % 1.0 Lymphocytes % 11.0 Atypical Lymphs % 1 Monocytes % 1.0 Eosinophils % 0.0 Basophils % 0.0 Absolute Neutrophils Not Applicable Absolute Lymphocytes 1.15 L Absolute Monocytes 0.10 L Absolute Eosinophils 0.00 Absolute Basophils 0.00 Differential Comment Manual differential RBC Morphology See below Anisocytosis 1+ Sodium 137 Potassium 4.6 Chloride 99 Carbon Dioxide 24.9 Anion Gap 13.1 H BUN 9 Creatinine 0.82 Estimated GFR/1.73 m2 >= 60.00 Glucose 181 H Lactate Calcium 9.2 Magnesium 1.7 L Total Bilirubin 0.3 AST 34 ALT 31 Alkaline Phosphatase 84 Troponin I < 0.05 NT-Pro-B Natriuret Pep 279 Total Protein 7.8 Albumin 3.4 Ethyl Alcohol 09/10/18 09/10/18 18:01 18:50 WBC RBC Hgb Hct MCV MCH MCHC RDW Plt Count MPV Immature Gran % Neutrophils % Band Neutrophils % Lymphocytes % Atypical Lymphs % Monocytes % Eosinophils % Basophils % Absolute Neutrophils Absolute Lymphocytes Absolute Monocytes Absolute Eosinophils Absolute Basophils Differential Comment RBC Morphology Anisocytosis Sodium Potassium Chloride Carbon Dioxide Anion Gap BUN Creatinine Estimated GFR/1.73 m2 Glucose Lactate 1.3 Calcium Magnesium Total Bilirubin AST ALT Alkaline Phosphatase Troponin I NT-Pro-B Natriuret Pep Total Protein Albumin Ethyl Alcohol < 3.0 Last Vital Signs Temp 36.6 C 09/10/18 17:41 Pulse 126 H 09/10/18 18:55 Resp 26 H 09/10/18 18:55 Pulse Ox 96 09/10/18 18:55
[2018-09-10] MEDS: VANCOMYCIN 1,250 MG in Normal Saline 250 ML 166.6666 MG IVPB (19:44)
[2018-09-10] MEDS: MAGNESIUM SULFATE 1 GM/100 ML BAG IVPB (19:44)
[2018-09-10] MEDS: Gabapentin 400 MG CAP PO (20:41)
[2018-09-10] MEDS: Magnesium Oxide 400 MG TAB 800 MG PO (20:41)
[2018-09-10] MEDS: Albuterol/Ipratropium 3 ML UPD VIAL UPD (20:42)
[2018-09-10] MEDS: oxyCODONE 5 MG TAB PO (20:42)
[2018-09-10] MEDS: Normal Saline Flush 10 ML SYR IVP (21:21)
[2018-09-10] MEDS: cefTRIAXone 1,000 MG in Normal Saline 50 ML 100 MG IVPB (21:42)
[2018-09-10] MEDS: AZITHROMYCIN 250 MG in Normal Saline 250 ML 83.333 MG IVPB (22:22)
[2018-09-10] MEDS: risperiDONE 0.5 MG TAB 1.5 MG PO (22:22)
[2018-09-10] MEDS: Zolpidem 5 MG TAB 10 MG PO (22:36)
[2018-09-10] MEDS: traZODone 100 MG TAB PO (22:36)
[2018-09-11] VITALS (17 sets, daily range): BP systolic 121–158; BP diastolic 78–89; PULSE 82–106; RESP 4–28; TEMP 31–37.1; O2SAT 95–98
[2018-09-11] MEDS: Albuterol/Ipratropium 3 ML UPD VIAL UPD ×5 (02:06→19:28)
[2018-09-11] MEDS: methylPREDNISolone SUCC 40 MG VIAL IVP ×3 (02:06→17:42)
[2018-09-11] MEDS: Levothyroxine 75 MCG TAB PO (05:01)
[2018-09-11] MEDS: Omnipaque 350 MG/ML 100 ML BTL IJ (08:45)
--- NOTE | 2018-09-11 09:00 | DI.CT_ITS ---
SYMPTOM/DIAGNOSIS: SOB, COUGH, ? PNA CHEST CT: 09/11 CT examination of the chest was performed with a bolus infusion of 100 cc Omnipaque 350. The examination is compared with previous chest CT of 06/13/2018. There are scattered areas of new ground glass and reticular opacities seen bilaterally, the findings are suggestive of acute pneumonitis most prominent involving the lingula. The tracheobronchial tree appears predominantly intact with some areas of minimal bronchiectasis in the lung bases. Diffuse changes of central lobular emphysema and scarring are noted. No pleural effusion is seen. No significant mediastinal or hilar adenopathy. No gross evidence of pulmonary embolic disease or other major vascular abnormalities seen. Images obtained through the upper abdomen show unremarkable appearance of the visualized portions of liver and spleen. CONCLUSION: Comparison with previous examination of 06/13/18 shows findings suggestive of acute mild multi-focal pneumonia most prominent involving the lingula. Follow up chest CT suggested following treatment.
--- NOTE | 2018-09-11 09:02 | NUR.NOTE ---
Nursing Note: 0900: Pat called from radiology to report that pt IV infiltrated after the IV contrast was administered and that saline is what infiltrated into her hand. RN confirms with radiology that contrast has completely infused and that the contrast was not the cause of the infiltration; Pat states, the contrast clicked and the saline was infusing, that's when the pt reported discomfort in her hand. RN will continue to monitor IV site upon return to unit.
--- NOTE | 2018-09-11 09:28 | DI.VRAD_ITS ---
EXAM: CT Chest With Contrast EXAM DATE/TIME: 09/11/2018 8:28 AM CLINICAL HISTORY: 58 years old, female; Other: SOB, cough, ? pna TECHNIQUE: Imaging protocol: Axial computed tomography images of the chest with intravenous contrast. Coronal and sagittal reformatted images were created and reviewed. Radiation optimization: All CT scans at this facility use at least one of these dose optimization techniques: automated exposure control; mA and/or kV adjustment per patient size (includes targeted exams where dose is matched to clinical indication); or iterative reconstruction. Contrast material: OMNIPAQUE 350; Contrast volume: 70 ml; Contrast route: IV; COMPARISON: CT CHEST W 06/13/2018 11:41 AM FINDINGS: Lungs: There is bilateral bronchial wall thickening which can be due to bronchitis. There is new airspace disease in the right lower lobe and lingular segment of the left upper lobe which can be due to pneumonia. There are changes in both lungs compatible with COPD. Pleural space: No pleural effusion or pneumothorax. Heart: The heart is not enlarged. Trace pericardial effusion. Coronary artery disease present. Pulmonary arteries: No central pulmonary embolism. Aorta: No thoracic aortic aneurysm or dissection. Great vessels off aortic arch: No major aortic branch vessel stenosis or occlusion. Lymph nodes: No pathologically enlarged lymph nodes. Bones/joints: Old bilateral rib fractures. Multilevel disc degeneration in the thoracic spine. Soft tissues: Unremarkable. IMPRESSION: 1. Bilateral pneumonia and bronchitis. 2. COPD. Dictated and Authenticated by: August Penn MD. Ordering:MATTHEW White MD
--- NOTE | 2018-09-11 09:35 | NUR.NOTE ---
Nursing Note: 0963: called [facility] pharmacy to verify pt's oxycodone 5mg dosing. pt has active prescription; pharmacy reports pt has 26 days left at home per their record. pt has not filled tramadol prescription as ordered by Dr. Leblanc.
[2018-09-11] MEDS: Gabapentin 400 MG CAP PO ×3 (09:39→19:29)
[2018-09-11] MEDS: Omeprazole 20 MG CAPCR 40 MG PO (09:39)
[2018-09-11] MEDS: buPROPion-XL 150 MG TABCR 300 MG PO (09:39)
[2018-09-11] MEDS: Normal Saline Flush 10 ML SYR IVP ×5 (09:39→17:41)
[2018-09-11] MEDS: Lisinopril 5 MG TAB PO (09:39)
[2018-09-11] MEDS: Magnesium Oxide 400 MG TAB 800 MG PO ×2 (09:39→19:28)
[2018-09-11 09:47] LABS: Absolute Basophil Count 0.03 k/cumm (0.0-0.2); Absolute Lymphocyte Count 0.73 k/cumm (1.2-3.4); Absolute Monocyte Count 0.48 k/cumm (0.11-0.7); Absolute Neutrophil Count 7.51 k/cumm (1.2-6.7); Basophils % 0.3; HCT 33.8 % (36.0-46.0); HGB 11.3 g/dL (12.0-15.5); Immature Grans % 1.1; Lymphocytes % 8.2; Mean Corp. HGB Concentration 33.4 g/dL (32.0-36.0); Mean Corpuscular Volume 95.8 fL (80-95); Mean Platelet Volume 9.9 fL (8.0-11.0); Monocytes % 5.4; Platelet Count 151 x1000/uL (130-400); RBC 3.53 m/cumm (4.00-5.20); RBC Distribution Width 14.7 % (11.7-14.6); White Blood Cell Count 8.85 k/cumm (4.4-10.8)
[2018-09-11 09:50] LABS: Anion Gap 12.6 mmol/L (3-11); BUN 8 mg/dL (7-18); CO2 23.4 mmol/L (21.0-32.0); CREATININE 0.88 mg/dL (0.55-1.02); Calcium 8.6 mg/dL (8.5-10.1); Chloride 101 mmol/L (98-107); Glucose 226 mg/dL (70-100); Magnesium 2.1 mg/dL (1.8-2.4); Potassium 4.5 mmol/L (3.5-5.1); Sodium 137 mmol/L (136-145)
[2018-09-11] MEDS: Folic Acid 1 MG TAB PO (10:08)
[2018-09-11] MEDS: Multivitamin TAB 1 TAB PO (10:08)
[2018-09-11] MEDS: Thiamine 100 MG TAB PO (10:08)
[2018-09-11 10:17] LABS: Diff Comment Agrees w/ Instrument; RBC Morphology Normal
[2018-09-11] MEDS: CEFEPIME 2 GM in Normal Saline 100 ML IVPB ×2 (11:22→17:42)
--- NOTE | 2018-09-11 12:22 | PGE_ITS ---
Date of Service Date of service: 09/11/18 Time of Service: 12:22 Assessment and Plan (1) HCAP (healthcare-associated pneumonia): Start date: 09/11/18 Start time: 12:35 Current visit: Yes Status: Acute Cough with SOB x 4 days. Seen by PCP and refused admission [facility]IDE. Was last admitted to [facility] with Pneumonia and COPD exacerbation on doxy and rocephin in August. After failing to improve with steroids patient decided to return to [facility]. Afebrile with no leukocytosis. Hypoxic requiring trelegy with 4 l at all times, normally [address] scan obtained revealing bilateral pneumonia, antibiotics have been changed to vanco and cefipime, blood cultures pending. LS with wheezing both inspiratory and expiratory. Continue nebs, updrafts, IHS, steroids. (2) COPD exacerbation: Start date: 09/11/18 Start time: 12:45 Current visit: No Status: Acute Exacerbation in the presence of bilateral pneumonia. See above (3) Bipolar disorder: Start date: 09/11/18 Start time: 12:46 Current visit: No Status: Acute Risperdal continue home regimen (4) Nicotine dependence with current use: Start date: 09/11/18 Start time: 12:46 Current visit: No Status: Acute Wears 3 L oxygen at home and continues to smoke, does not want patch at this time. Endorses only smoking 2 cigarettes. Spoke at length about dangers of smoking and need for quitting, and dangers of smoking while on oxygen. Continue encouraging smoking cessation (5) Alcohol abuse: Start date: 09/11/18 Start time: 12:50 Current visit: Yes Status: Chronic Did quite drinking for a period, and now drinking again. states drinks three alcoholic beverages a day. Placed on CIWA and oxazepam PO TID for withdrawal. No signs yet continue to monitor. (6) Hypoxia: Start date: 09/11/18 Start time: 12:52 Current visit: Yes Status: Acute Hypoxic in setting of pneumonia with COPD exacerbation, see above. (7) DVT prophylaxis: Start date: 09/11/18 Current visit: Yes Status: Acute enoxaparin Subjective Interval history since last seen: Does not appear to be improving. On trelegy at this time with 96% saturation. Wheezing both expiratory and inspiratory through out. CT scan with bilateral pneumonia, started on vancomycin and cefepime for HCAP, as she was just here in August. Continue steroids, nebs, updrafts and antbx. PIMENTEL with any little movement, denies CP, SOB, N/V/D. Exam Const General: cooperative, anxious and ill appearing [facility] Head: normal to inspection Eyes General: appearance normal, both eyes and all related structures Pupils: PERRL Resp Effort & Inspection: not able to speak in complete sentences, abnormal respiratory pattern and other (severe dyspnea, unable to speak without being SOB) Auscultation: wheezes Other: wheezing both inspiratory and expiratory. Cardio Jugular venous pressure: no JVD Rate: regular rate Rhythm: regular rhythm Heart Sounds: S1 normal, S2 normal and no murmurs GI Inspection: normal to inspection Palpation: soft and no hepatosplenomegaly Auscultation: normal bowel sounds Skin General skin exam: no rashes or lesions noted Neuro General: alert, awake and oriented x3 Objective Objective Clinical Data: Abnormal lab results 09/10/18 09/10/18 09/11/18 Range/Units 18:01 18:01 09:30 RBC (4.00-5.20) m/cumm Hgb (12.0-15.5) g/dL Hct (36.0-46.0) % MCV (80-95) fL RDW 14.8 H (11.7-14.6) % Absolute Neutrophils (1.2-6.7) k/cumm Absolute Lymphocytes 1.15 L (1.2-3.4) k/cumm Absolute Monocytes 0.10 L (0.11-0.7) k/cumm Anion Gap 13.1 H 12.6 H (3-11) mmol/L Glucose 181 H 226 H (70-100) mg/dL Magnesium 1.7 L (1.8-2.4) mg/dL 09/11/18 Range/Units 09:30 RBC 3.53 L (4.00-5.20) m/cumm Hgb 11.3 L (12.0-15.5) g/dL Hct 33.8 L (36.0-46.0) % MCV 95.8 H (80-95) fL RDW 14.7 H (11.7-14.6) % Absolute Neutrophils 7.51 H (1.2-6.7) k/cumm Absolute Lymphocytes 0.73 L (1.2-3.4) k/cumm Absolute Monocytes (0.11-0.7) k/cumm Anion Gap (3-11) mmol/L Glucose (70-100) mg/dL Magnesium (1.8-2.4) mg/dL Vital Signs Temperature 36.5 C 09/11/18 11:27 Temperature Source Temporal Artery Scan 09/11/18 11:27 Pulse 96 H 09/11/18 11:27 Pulse Rhythm Regular 09/11/18 08:00 Pulse 123 H 09/10/18 18:00 Respiratory Rate 22 09/11/18 11:27 Respiratory Effort Labored 09/11/18 08:00 Respiratory Depth Shallow 09/11/18 08:00 Respiratory Pattern Tachypnea 09/11/18 08:00 Blood Pressure 131/83 09/11/18 11:27 Pulse Oximetry 96 09/11/18 11:27 Oxygen Delivery Method Hi Flow Nasal Cannula 09/11/18 11:27 Oxygen Flow Rate 35 09/11/18 09:33 Fraction of Inspired Oxygen (FIO2) 30 09/11/18 09:33 Pain Level 4 09/11/18 07:52 Comment 09/11/18 07:52 Intake & Output 09/10/18 09/11/18 09/11/18 23:59 11:59 23:59 Intake Total 700 / 700 250 / 250 Output Total 800 / 800 Balance -100 / -100 250 / 250 Weight 82 kg Intake: IV 700 / 700 250 / 250 Output: Urine 800 / 800 Other: Urine Color Yellow Urine Appearance Clear Clear Urine Odor None Voiding Methods Toilet Laboratory Results WBC 8.85 k/cumm (4.4-10.8) 09/11/18 09:30 RBC 3.53 m/cumm (4.00-5.20) L 09/11/18 09:30 Hgb 11.3 g/dL (12.0-15.5) L 09/11/18 09:30 Hct 33.8 % (36.0-46.0) L 09/11/18 09:30 MCV 95.8 fL (80-95) H 09/11/18 09:30 MCH 32.0 pg (27.0-33.0) 09/11/18 09:30 MCHC 33.4 g/dL (32.0-36.0) 09/11/18 09:30 RDW 14.7 % (11.7-14.6) H 09/11/18 09:30 Plt Count 151 x1000/uL (130-400) 09/11/18 09:30 MPV 9.9 fL (8.0-11.0) 09/11/18 09:30 Immature Gran % 1.1 09/11/18 09:30 Neutrophils % 85.0 09/11/18 09:30 Band Neutrophils % 1.0 % 09/10/18 18:01 Lymphocytes % 8.2 09/11/18 09:30 Atypical Lymphs % 1 09/10/18 18:01 Monocytes % 5.4 09/11/18 09:30 Eosinophils % 0.0 09/11/18 09:30 Basophils % 0.3 09/11/18 09:30 Absolute Neutrophils 7.51 k/cumm (1.2-6.7) H 09/11/18 09:30 Absolute Lymphocytes 0.73 k/cumm (1.2-3.4) L 09/11/18 09:30 Absolute Monocytes 0.48 k/cumm (0.11-0.7) 09/11/18 09:30 Absolute Eosinophils 0.00 k/cumm (0.0-0.7) 09/11/18 09:30 Absolute Basophils 0.03 k/cumm (0.0-0.2) 09/11/18 09:30 Differential Comment Agrees w/ instrument 09/11/18 09:30 RBC Morphology Normal 09/11/18 09:30 Anisocytosis 1+ 09/10/18 18:01 Sodium 137 mmol/L (136-145) 09/11/18 09:30 Potassium 4.5 mmol/L (3.5-5.1) 09/11/18 09:30 Chloride 101 mmol/L (98-107) 09/11/18 09:30 Carbon Dioxide 23.4 mmol/L (21.0-32.0) 09/11/18 09:30 Anion Gap 12.6 mmol/L (3-11) H 09/11/18 09:30 BUN 8 mg/dL (7-18) 09/11/18 09:30 Creatinine 0.88 mg/dL (0.55-1.02) 09/11/18 09:30 Estimated GFR/1.73 m2 >= 60.00 (mL/min/1.73m2) 09/11/18 09:30 Glucose 226 mg/dL (70-100) H 09/11/18 09:30 Lactate 1.3 mmol/l (0.6-1.4) 09/10/18 18:50 Calcium 8.6 mg/dL (8.5-10.1) 09/11/18 09:30 Magnesium 2.1 mg/dL (1.8-2.4) 09/11/18 09:30 Total Bilirubin 0.3 mg/dL (0.2-1.0) 09/10/18 18:01 AST 34 U/L (15-37) 09/10/18 18:01 ALT 31 U/L (12-78) 09/10/18 18:01 Alkaline Phosphatase 84 U/L (46-116) 09/10/18 18:01 Troponin I < 0.05 ng/mL (0.00-0.06) 09/10/18 18:01 NT-Pro-B Natriuret Pep 279 pg/mL (-299) 09/10/18 18:01 Total Protein 7.8 g/dL (6.4-8.2) 09/10/18 18:01 Albumin 3.4 g/dL (3.4-5.0) 09/10/18 18:01 Ethyl Alcohol < 3.0 mg/dL (<3) 09/10/18 18:01
[2018-09-11] MEDS: Hyaluronidase 150 UNITS VIAL 255 UNITS IJ (12:38)
[2018-09-11] MEDS: Budesonide 0.5 MG/2 ML UPD VIAL UPD ×2 (13:00→21:33)
--- NOTE | 2018-09-11 13:26 | PDOC.CMIN ---
- If Service Date Differs Date of service: 09/11/18 Time of Service: 13:26 Care Management Initial Assess REASON FOR HOSPITALIZATION:: COPD Exacerbation PAST MEDICAL HISTORY/PAST SURGICAL HISTORY:: Medical History . Anxiety disorder (Chronic). Respiratory failure (Acute). COPD exacerbation (Acute). Hypothyroidism (acquired) (Acute). Pulmonary histiocytosis x (Acute). Bipolar disorder (Acute). Nicotine dependence with current use (Acute). Hx of hysterectomy (Chronic). Surgical History: History of right shoulder replacement (Acute). Hx of bilateral cataract extraction (Acute). Hx of section (Chronic) PREVIOUS FUNCTIONAL STATUS/SOCIAL/FAMILY SUPPORTS:: Goldie lives alone in a 4th floor efficiency apartment in [facility]. The building has an elevator, so stair climbing is not required. 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 She states she has a strong support system of family and friends. She is independent with ADLs but states she might need a little help when she goes home. She uses a quad cane and sometimes a walker or wheelchair if she goes to the store. Goldie shared that she also sees Lorena Lindsey ([facility]) twice a week for mental health counseling. CURRENT FUNCTIONAL STATUS:: Goldie was sitting up in the chair during CM visit. She was pleasant and engaged readily in conversation. She states she became more short of breath at home, she did see her pcp who told her she should be admitted. She did not want to be admitted in [place] so she went home. Goldie shared that she has just received approval for [facility] and that she begin receiving Meals on Wheels on Wednesday.She also reports they are looking for an adult long term for her. She states Savannah Redmond is her community cultural development officer. ADVANCE DIRECTIVES:: On file at [facility] her daughter Darlene is her agent Has patient been provided with information about the portal?: Yes Did the patient sign up for the portal?: No CODE STATUS:: DNI INSURANCE COVERAGE / FINANCIAL ISSUES:: medicaid CURRENT HOME/COMMUNITY SERVICES/EQUIPMENT:: Choices for care, home health nursing, PT/OT, [facility] in [place], primary care in [place] Dr.FideLorena diaz, [place] [facility], meals on wheels, FWW and BIPAP and subsidized housing and palliative care. PRIMARY CARE PHYSICIAN:: POTENTIAL DISCHARGE NEEDS:: Follow up with primary care. CM has reviewed SNF placement with Goldie while she recovers from illness and until she can get into a AFC home. She would like to discuss this with Lorena whom she identifies with as her main support person. PATIENT/FAMILY EDUCATION NEEDS:: Discharge education limitations and follow up plan of care. Will plan to meet with GoldieLorena and community cultural development officer to discuss options for discharge. ANTICIPATED BARRIERS TO DISCHARGE:: COPD, continues to use tobacco and alcohol would like to stop she identifies barriers as the where she lives and the people she spends time with. TRANSPORTATION:: Via [facility] pending disposition. PLAN:: Goldie is being treated with IV antibiotics and IV steroids. She will have a midline consult is ordered. She has a right hand infiltrate from previous IV access that is being monitored. Discharge disposition to be determined. CM to continue to coordinate discharge plan and disposition with pt and team. Readmission - Within the Past 30 Days Yes or No: Y - Date of First Admission Date of 1st Admission: 08/19/18 - Date of this Admission Date of Admission: 09/10/18 - Office Visit Since 1st Admission Have you seen your PCP in the office since discharge?: Yes Date of PCP Appointment: 09/09/18 Had an appointment Been Scheduled?: Yes - I. Interview patient and/or Family Difficulty reaching your doctor or getting an office appt?: No Have you had trouble purchasing/ or taking medication?: Yes Describe barriers fpr purchasing or taking medication: Medications are becoming more confusing for me and I am unable to understand all the change in directions. Goldie states I feel like my mind just goes elsewehre and i am not able to understand anymore. Have you had trouble with getting meals at home?: Yes Describe your typical meals since you have been home: Meals on wheels in place difficulty making meals and activity tolerence. Did you feel ready for discharge when you left the last time: Yes Were services received that you thought were set up on disch: Yes What services were received?: home health, DME, CFC, MOW Did you call your physician beore you came to the ED?: Yes Did your physician tell you to come in?: Yes How do you think you became sick enough to come back?: Patient states I was feeling short of breath I did go see my primary care he thought I should be admitted. i am not sure why I got sick again they tell me its pneumonia and this is the 5th time this year. - If the patient had a VNA ordered Did the patient have a VNA order?: Yes Did you call the VNA before you came?: No Did the VNA tell you to come to the hospital?: No Do you know if the VNA called your physician?: No - Ask the Care Team Members: What do you think caused the patient to be readmitted: Goldie continues to use tobacco in her home. She states it does get credit rating inspector her apartment however she does have both fans and air conditioning. She is unable to take her medication consistently due to cognitive level of functioning which she is able to identify. Goldie's breathing is poor and her activity tolerance is poor. She admits she is unable to care for herself anymore at home. - ED visits How many ED visits in the past 12 months: 8
--- NOTE | 2018-09-11 13:48 | INITIAL_ITS ---
- If Service Date Differs Date of service: 09/11/18 Time of Service: 13:26 Care Management Initial Assess REASON FOR HOSPITALIZATION:: COPD Exacerbation PAST MEDICAL HISTORY/PAST SURGICAL HISTORY:: Medical History . Anxiety disorder (Chronic). Respiratory failure (Acute). COPD exacerbation (Acute). Hypothyroidism (acquired) (Acute). Pulmonary histiocytosis x (Acute). Bipolar disorder (Acute). Nicotine dependence with current use (Acute). Hx of hysterectomy (Chronic). Surgical History: History of right shoulder replacement (Acute). Hx of bilateral cataract extraction (Acute). Hx of section (Chronic) PREVIOUS FUNCTIONAL STATUS/SOCIAL/FAMILY SUPPORTS:: Goldie lives alone in a 4th floor efficiency apartment in [facility]. The building has an elevator, so stair climbing is not required. 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 She states she has a strong support system of family and friends. She is independent with ADLs but states she might need a little help when she goes home. She uses a quad cane and sometimes a walker or wheelchair if she goes to the store. Goldie shared that she also sees Lorena Lindsey ([facility]) twice a week for mental health counseling. CURRENT FUNCTIONAL STATUS:: Goldie was sitting up in the chair during CM visit. She was pleasant and engaged readily in conversation. She states she became more short of breath at home, she did see her pcp who told her she should be admitted. She did not want to be admitted in [place] so she went home. Goldie shared that she has just received approval for [facility] and that she begin receiving Meals on Wheels on Wednesday.She also reports they are looking for an adult fdc for her. She states Savannah Redmond is her community health planning director. ADVANCE DIRECTIVES:: On file at [facility] her daughter Darlene is her agent Has patient been provided with information about the portal?: Yes Did the patient sign up for the portal?: No CODE STATUS:: DNI INSURANCE COVERAGE / FINANCIAL ISSUES:: medicaid CURRENT HOME/COMMUNITY SERVICES/EQUIPMENT:: Choices for care, home health nursing, PT/OT, [facility] in [place], primary care in [place] Dr.FideLorena diaz, [place] recovery center, meals on wheels, FWW and BIPAP and subsidized housing and palliative care. PRIMARY CARE PHYSICIAN:: POTENTIAL DISCHARGE NEEDS:: Follow up with primary care. CM has reviewed SNF placement with Goldie while she recovers from illness and until she can get into a AFC home. She would like to discuss this with Lorena whom she identifies with as her main support person. PATIENT/FAMILY EDUCATION NEEDS:: Discharge education limitations and follow up plan of care. Will plan to meet with GoldieLorena and community health planning director to discuss options for discharge. ANTICIPATED BARRIERS TO DISCHARGE:: COPD, continues to use tobacco and alcohol would like to stop she identifies barriers as the where she lives and the people she spends time with. TRANSPORTATION:: Via [facility] pending disposition. PLAN:: Goldie is being treated with IV antibiotics and IV steroids. She will have a midline consult is ordered. She has a right hand infiltrate from previous IV access that is being monitored. Discharge disposition to be determined. CM to continue to coordinate discharge plan and disposition with pt and team. Readmission - Within the Past 30 Days Yes or No: Y - Date of First Admission Date of 1st Admission: 08/19/18 - Date of this Admission Date of Admission: 09/10/18 - Office Visit Since 1st Admission Have you seen your PCP in the office since discharge?: Yes Date of PCP Appointment: 09/09/18 Had an appointment Been Scheduled?: Yes - I. Interview patient and/or Family Difficulty reaching your doctor or getting an office appt?: No Have you had trouble purchasing/ or taking medication?: Yes Describe barriers fpr purchasing or taking medication: Medications are becoming more confusing for me and I am unable to understand all the change in directions. Goldie states I feel like my mind just goes elsewehre and i am not able to understand anymore. Have you had trouble with getting meals at home?: Yes Describe your typical meals since you have been home: Meals on wheels in place difficulty making meals and activity tolerence. Did you feel ready for discharge when you left the last time: Yes Were services received that you thought were set up on disch: Yes What services were received?: home health, DME, CFC, MOW Did you call your physician beore you came to the ED?: Yes Did your physician tell you to come in?: Yes How do you think you became sick enough to come back?: Patient states I was feeling short of breath I did go see my primary care he thought I should be admitted. i am not sure why I got sick again they tell me its pneumonia and this is the 5th time this year. - If the patient had a VNA ordered Did the patient have a VNA order?: Yes Did you call the VNA before you came?: No Did the VNA tell you to come to the hospital?: No Do you know if the VNA called your physician?: No - Ask the Care Team Members: What do you think caused the patient to be readmitted: Goldie continues to use tobacco in her home. She states it does get factory maintenance manager her apartment however she does have both fans and air conditioning. She is unable to take her medication consistently due to cognitive level of functioning which she is able to identify. Goldie's breathing is poor and her activity tolerance is poor. She admits she is unable to care for herself anymore at home. - ED visits How many ED visits in the past 12 months: 8
[2018-09-11 14:08] LABS: Procalcitonin < 0.1 ng/mL
[2018-09-11] MEDS: Enoxaparin 40 MG/0.4 ML SYR SC (14:36)
[2018-09-11] MEDS: Polyethylene Glycol 3350 17 GM PACKET PO (14:56)
[2018-09-11] MEDS: traZODone 100 MG TAB PO (19:28)
[2018-09-11] MEDS: oxyCODONE 5 MG TAB PO (19:29)
[2018-09-11] MEDS: Zolpidem 5 MG TAB 10 MG PO (19:29)
[2018-09-11] MEDS: risperiDONE 0.5 MG TAB 1.5 MG PO (21:33)
[2018-09-11] MEDS: AZITHROMYCIN 250 MG in Normal Saline 250 ML 83.333 MG IVPB (23:22)
[2018-09-12] VITALS (7 sets, daily range): BP systolic 142–148; BP diastolic 79–87; PULSE 88–108; RESP 4–22; TEMP 36.1–37.2; O2SAT 96–98
[2018-09-12] MEDS: CEFEPIME 2 GM in Normal Saline 100 ML IVPB ×3 (02:43→17:16)
[2018-09-12] MEDS: Normal Saline Flush 10 ML SYR IVP ×3 (02:43→17:19)
[2018-09-12] MEDS: methylPREDNISolone SUCC 40 MG VIAL IVP ×3 (02:43→17:19)
[2018-09-12] MEDS: Albuterol/Ipratropium 3 ML UPD VIAL UPD ×5 (02:44→19:19)
[2018-09-12] MEDS: Polyethylene Glycol 3350 17 GM PACKET PO (03:33)
[2018-09-12] MEDS: Levothyroxine 75 MCG TAB PO (05:41)
[2018-09-12 07:28] LABS: Absolute Basophil Count 0.03 k/cumm (0.0-0.2); Basophils % 0.3; HCT 35.9 % (36.0-46.0); HGB 11.5 g/dL (12.0-15.5); Immature Grans % 2.5; Mean Corpuscular Hemoglobin 31.2 pg (27.0-33.0); Mean Corpuscular Volume 97.3 fL (80-95); Mean Platelet Volume 10.1 fL (8.0-11.0); Platelet Count 192 x1000/uL (130-400); RBC 3.69 m/cumm (4.00-5.20); RBC Distribution Width 14.8 % (11.7-14.6); White Blood Cell Count 10.13 k/cumm (4.4-10.8)
[2018-09-12] MEDS: Omeprazole 20 MG CAPCR 40 MG PO (07:43)
[2018-09-12 07:49] LABS: Anion Gap 7.7 mmol/L (3-11); BUN 13 mg/dL (7-18); CO2 28.3 mmol/L (21.0-32.0); CREATININE 0.83 mg/dL (0.55-1.02); Chloride 102 mmol/L (98-107); Glucose 204 mg/dL (70-100); Magnesium 2.3 mg/dL (1.8-2.4); Potassium 4.6 mmol/L (3.5-5.1); Sodium 138 mmol/L (136-145)
[2018-09-12] MEDS: buPROPion-XL 150 MG TABCR 300 MG PO (08:15)
[2018-09-12] MEDS: Magnesium Oxide 400 MG TAB 800 MG PO ×2 (08:15→19:17)
[2018-09-12] MEDS: Thiamine 100 MG TAB PO (08:16)
[2018-09-12] MEDS: Lisinopril 5 MG TAB PO (08:16)
[2018-09-12] MEDS: Gabapentin 400 MG CAP PO ×3 (08:16→19:17)
[2018-09-12] MEDS: Multivitamin TAB 1 TAB PO (08:16)
[2018-09-12] MEDS: Folic Acid 1 MG TAB PO (08:18)
[2018-09-12 08:43] LABS: Absolute Lymphocyte Count 0.71 k/cumm (1.2-3.4); Absolute Monocyte Count 0.71 k/cumm (0.11-0.7); Absolute Neutrophil Count 8.71 k/cumm (1.2-6.7); Atypical Lymphocytes % 1; Diff Comment Manual Differential
[2018-09-12 08:44] LABS: RBC Morphology Normal
[2018-09-12] MEDS: Budesonide 0.5 MG/2 ML UPD VIAL UPD ×2 (10:46→19:20)
[2018-09-12] MEDS: oxyCODONE 5 MG TAB PO ×2 (11:00→19:18)
--- NOTE | 2018-09-12 11:41 | OT.INIE ---
Occupational Therapy Notes Inpatient Occupational Therapy Evaluation Date: 09/12/18 Referring Doctor:Cindy De La Garza NP OT Orders: Strengthening Precautions: Fall, Standard PATIENT PROFILE/ADMITTING DIAGNOSIS: Pt is a 58 year old female who presented to the ER after being seen by her PCP and her PCP recommending that she stay at the hospital in [place]. Pt denied and was then seen at [facility] in the ER and admitted to [facility] for COPD exacerbation, HCAP, and hypoxia. Past Medical History: Medical History Anxiety disorder (Chronic) Respiratory failure (Acute) COPD exacerbation (Acute) Hypothyroidism (acquired) (Acute) Pulmonary histiocytosis x (Acute) Bipolar disorder (Acute) Nicotine dependence with current use (Acute) Hx of hysterectomy (Chronic) Surgical History History of right shoulder replacement (Acute) Hx of bilateral cataract extraction (Acute) Hx of section (Chronic) Social History/Home Situation: Pt lives in a handicap accessible apartment on the 4th floor in her apartment building in [facility]. She states that she previously had HHPT, OT and nursing coming into her home 2x/week. She was recently accepted to [facility]. She has a daughter and 8 year old granddaughter who live in [place], [place]. She states that she gets rides with [facility] or a close friend who (A) when she needs help. 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 She states that she has a tub/shower with shower bench, she has a raised toilet and that she is able to eat/brush her teeth and hair and go to the bathroom all (I). She does not that d/t her (R) shoulder she has difficulty with house keeping and if her pain gets really bad it takes her longer to perform her ADLs/IADLs then she likes. She uses a quad cane most of the time for functional mobility. She notes that this really depends on how tired she is. Equipment owned/DME: quad cane, FWW, wheel chair, shower bench, handicap accessible apartment, portable O2 nasal cannula SUBJECTIVE: Pt was sitting in chair when OT arrived. She was agreeable to OT consult noting that she recently had HH services in her home. OBJECTIVE: General Observation: O2 nasal cannula, IV (L) UE, pt is breathing slightly heavy while answering questions. This seems to be her baseline. She is able to answer questions and is pleasant. Mental Status: A&Ox2 Pain: C/O pain in (R) shoulder with AROM ROM: RUE Shoulder flexion limited pending shoulder surgery which she is being seen for on an outpatient basis. Elbow WNL, hand and digits WNL L UE AROM to 140*, elbow WNL, hand and digits WNL STRENGTH: RUE Shoulder flexion 3-/4, bicep 2+/5, tricep 3-/5, caser up is weak and symmetrical pt is (R) handed. LUE Shoulder flexion 3-/4, bicep 2+/5, tricep 3-/5, caser up is weak and symmetrical FUNCTIONAL MOBILITY/ADLS: Pt performed all her ADLs with nursing prior to OT arrival. Nursing does state that pt is almost (I) in all ADLs. Through assessment of functional AROM pt demonstrates the ability and ROM needed to perform ADLs. OT will further assess pts ADLs at tomorrows session. This was discussed with pt who is in agreement with this plan. DRESSING Dressing LE (I) don and doffing (B) socks. BALANCE: Static sitting Normal Dynamic Sitting Normal Static Standing NT Dynamic Standing NT SPECIAL TESTS: Daily Activity Limitations Standardized Measure [facility] AM -PAC ?6 clicks? Daily Activity Inpatient Short Form: Raw score: 20 INFORMED CONSENT/EDUCATION: Pt instructed in purpose of OT Consult and plan of care. ASSESSMENT: Patient is a 58-year-old female referred to occupational therapy services with diagnosis of COPD exacerbation, HCAP and hypoxia. Patient presents with clinical signs and symptoms consistent with dx, as demonstrated by the following impairment level findings: decreased functional activity tolerance, decreased (B) UE strength, decreased (B) UE AROM, Pain in (R) shoulder (chronic), decreased gross motor control of (B) UE. Impairments are contributing to the following functional limitations: Unable to perform functional mobility without SOB, decreased functional activity tolerance with performance of ADLs, decreased cognitive awareness of (I) in ADLs, unable to perform ADLs (I) and requires (A). Patient is assessed as a Low 49717 complexity based on the following: History: See Above Examination: See Above Presentation: Evolving Decision Making: Low complexity GOALS Goals x1 week 1. Transfers (I) with cane 2. Dressing (I) in sitting position 3. Bathing (I) sitting in chair 4. Toileting (I) on toilet 5. Eating (I) 6. Grooming (I) standing at sink brushing teeth and hair PLAN OF CARE/TREATMENT PLAN: 1x/day, 5 days/ week x 1week Initiate Occupational Therapy Services for bathing, dressing, grooming, toileting, eating, transfer training. DISCHARGE RECOMMENDATIONS OT recommends that pt return home with continued HH OT services vs. SNF for continued rehabilitation TREATMENT TIME/MINUTES/CODES 67644, 20 minutes (11:00) [facility]
--- NOTE | 2018-09-12 11:47 | PT.INIE ---
Date of service: 09/12/18 Time of Service: 11:20 PT Notes Inpatient Physical Therapy Evaluation Date: 09/12/2018 Referring Doctor: Cindy De La Garza NP PT Orders: PT CONSULT: Strengthening Precautions: Fall. Standard. Patient Profile/Admitting Diagnosis: Patient is a 58-year-old female with past medical history significant for COPD, Nicotine dependence, anxiety diroder, and respiratory failure who presented to the ED on 09/10/2018 with chief complaints of shortness of breath and cough that has lasted for the past few days. Patient was diagnosed with COPD exacerbation with question of Pneumonia. Physical therapy referral was made in order to address resulting impairments in strength, activity tolerance, and mobility level. PMHX: Medical History Anxiety disorder (Chronic) Respiratory failure (Acute) COPD exacerbation (Acute) Hypothyroidism (acquired) (Acute) Pulmonary histiocytosis x (Acute) Bipolar disorder (Acute) Nicotine dependence with current use (Acute) Hx of hysterectomy (Chronic) Surgical History History of right shoulder replacement (Acute) Hx of bilateral cataract extraction (Acute) Hx of section (Chronic) Social History/Home Situation: Patient lives alone on the 4th floor of an apartment building on [facility] [address] [facility] in [facility]. Prior to this admission and to her most recent hospitalization in this hospital two weeks ago, patient had been making her own meals and had been managing her dialy activities alone independently. She came home modified independent with the 4WW for all indoor and outdoor ambulation with home oxygen supplementation at 3L/min via NC. She was able to walk distance from apartment to [facility] [address] about 800-1000 feet but at a pace she considers considerably slower than most people. 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 She states that she is currently on a 60-day trial for meals on wheels provision. OT had seen her 3x last week and PT was scheduled to see her this Wednesday. nursing came threex last week. Current Functional Limitations: Impaired activity tolerance for all [facility] Equipment Owned/DME: 4WW, SBQC, FWW, W/C, shower bench, portable O2 nasal cannula Subjective: Patient is agreeable to a PT consult today. She states that she still feels short of breath but symptom has eased up a bit as of today. She is agreeable to continuing with HH PT/OT/SN services as soon as she is able to go home. She further states that she has a rn field case manager assisting her with her choices for care application for a potential transfer of place of residence. She denies dizziness, headache, and chest pain. She reports that she continues to have sciatic pain through both her legs intermittently. She also explained why her R FA and hand are swollen. Objective: General Observation: Patient seen resting on her chair. IV in R UE. 3 L/min of oxygen supplementation via NC. R forearm and hand edematous. Mental Status: Alert and oriented x4 Pain: No complaints of sciatic pain on bilateral lower extremities during the evaluation Vital Signs: Oxygen saturation stayed within 89% through 96% on 3 L/min ROM: Right Upper Extremity: Shoulder Flexion WFL. Shoulder abduction WFL. Elbow flexion WFL. Wrist flexion WFL. Functional opening and closing of hand WFL. Left Upper Extremity: Shoulder Flexion about 0-60. Shoulder abduction about 0-60. Elbow flexion WFL. Wrist flexion WFL. Functional opening and closing of hand WFL. Right Lower Extremity: Hip flexion WFL. Hip abduction WFL. Knee flexion WFL. Ankle dorsiflexion WFL. Ankle plantarflexion WFL. Left Lower Extremity: Hip flexion WFL. Hip abduction WFL. Knee flexion WFL. Ankle dorsiflexion WFL. Ankle plantarflexion WFL. Strength: Right Upper Extremity: Shoulder flexors 4-/5. Shoulder abductors 4-/5. Elbow flexors 4-/5. Elbow extensors 4-/5. Manager Chemistry strong. Left Upper Extremity: Shoulder flexors 3-/5. Shoulder abductors 3-/5. Elbow flexors 4-/5. Elbow extensors 4-/5. Manager Chemistry strong. Right Lower Extremity: Hip flexors 3+/5. Hip abductors 3=/5. Knee flexors 4-/5. Knee extensors 3+/5. Ankle dorsiflexors 4-/5. Ankle plantarflexors 4-/5. Left Lower Extremity: Hip flexors 3+/5. Hip abductors 3=/5. Knee flexors 4-/5. Knee extensors 3+/5. Ankle dorsiflexors 4-/5. Ankle plantarflexors 4-/5. Sensation: Intact as to pain and pressure on bilateral lower extremities. Bed Mobility/Transfers: Rolling CGA Supine to sit CGA Sit to supine CGA Sit to stand CGA Stand to sit CGA Bed to chair CGA Chair to bed CGA Gait: Patient was able to tolerate in room ambulation of 30 feet with 2 turns using front wheeled walker with CGA of this PT. Oxygen saturation stayed above 90% throughout gait activity with patient report of mildly being fatigued. No remarkable gait deviation noted. Balance: Static Sitting: Normal Dynamic Sitting: Normal Static Standing: Good Dynamic Standing: Fair Special Tests: Mobility Limitations Standardized Measure [facility] AM-PAC 6 clicks Basic Mobility Inpatient Short Form: Raw Score: 17 CMS Score: 50% Informed Consent/Education: Patient instructed in purpose of PT consult and plan of care. Assessment: Patient was diagnosed with COPD exacerbation with question of Pneumonia. Patient presents with clinical signs and symptoms consistent with current/admitting diagnoses that have resulted to mobility limitations, gait instability, generalized weakness, and impairment of motor control as demonstrated by the following impairment level findings: 1. Decreased strength to R UE and B LE major muscle groups 2. Impaired standing balance 3. Impaired activity tolerance 4. Limitation of joint range of motion in L shoulder Impairments are contributing to the following functional limitations: 1. Dependent bed mobility skills 2. Increased dependence with transfers 3. Inability to safely ambulate without assistive device and physical assistance 4. Increase completion time for mobility ADL performance 5. Increased fall risk 6. Inability to negotiate steps alone safely Patient is assessed as a 78058 Moderate complexity based on the following: History: Patient was diagnosed with COPD exacerbation with question of Pneumonia with co-morbidities as listed above Examination: Demonstrable impairment in strength, balance, and range of motion with underlying impairments and functional limitations as documented above Presentation:Evolving Decision Makin moderate complexity Goals: Goals X1 week 1. Supine-Sit independent 2. Sit-Supine independent 3. Sit-Stand independent 4. Stand-Sit independent 5. Bed-Chair independent 6. Chair-Bed independent 7. Independent gait on level surface with use of least restrictive device for at least 300 feet without report of pain nor dyspnea 8. Independent with home exercise program 9. Good static and dynamic standing balance/tolerance Plan of Care/Treatment Plan: 1-2x/day, 7 days/week x 1 week. Plan of care has been reviewed with the WEB CONTENT EXECUTIVE providing the service under Physical Therapy direction. Initiate Physical Therapy intervention for strengthening, bed mobility, transfers, gait, stairs, balance training, use of assistive device. DISCHARGE RECOMMENDATIONS: Patient will benefit from home health PT services in order to progress mobility level using least restrictive assistive ambulatory device/using no device, assess home safety, identify additional equipment needs, and establish a functional maintenance program that will increase ability of patient to remain at home. TREATMENT CODE/TIME: 88214 x 36 minutes beginning at 11;20 AM. Thank you very much for this referral. Emily Egan PT, DPT, CLT [facility]
--- NOTE | 2018-09-12 11:56 | PGE_ITS ---
Date of Service Date of service: 09/12/18 Time of Service: 11:56 Assessment and Plan (1) HCAP (healthcare-associated pneumonia): Start date: 09/12/18 Start time: 12:00 Current visit: Yes Status: Acute Improving LS with expiratory wheezing. On 3 L o2 which is baseline. She is having coughing fits, tessalon gonzalez, mucinex, and acapella ordered. Sputum culture ordered. Continue nebs, steroids, updrafts, and antibiotics. Day 2 of cefipime and vancomycin. Blood cultures with NGTD (2) COPD exacerbation: Start date: 09/12/18 Start time: 12:02 Current visit: No Status: Acute Improving. Exacerbation in the presence of bilateral pneumonia. See above (3) Bipolar disorder: Start date: 09/12/18 Start time: 12:02 Current visit: No Status: Acute Risperdal continue home regimen (4) Nicotine dependence with current use: Start date: 09/12/18 Start time: 12:02 Current visit: No Status: Acute Wears 3 L oxygen at home and continues to smoke, does not want patch at this time. Endorses only smoking 2 cigarettes. Spoke at length about dangers of smoking and need for quitting, and dangers of smoking while on oxygen. Continue encouraging smoking cessation (5) Alcohol abuse: Start date: 09/12/18 Start time: 12:02 Current visit: Yes Status: Chronic Did quite drinking for a period, and now drinking again. states drinks three alcoholic beverages a day. Placed on CIWA and oxazepam PO TID for withdrawal. CIWA 0, continue to monitor. (6) Hypoxia: Start date: 09/12/18 Start time: 12:03 Current visit: Yes Status: Acute Hypoxic in setting of pneumonia with COPD exacerbation, see above. 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 Give oxycodone by provider for pain, usually takes 1 at night. C/o shoulder pain during the day. Oxycodone 5 mg added in the am for pain control. Subjective Patient reports: feels better Interval history since last seen: Feeling better today. On 3 L of oxygen which is baseline. Lung sounds improved. Is c/o L shoulder pain which she has seen Dr. 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 Currently on oxycodone at , I have added a morning dose of oxycodone for pain as well. She denies CP, SOB is improving compared to admission, n/v/d. Exam Const General: cooperative, anxious and ill appearing [facility] Head: normal to inspection Eyes General: appearance normal, both eyes and all related structures Pupils: PERRL Resp Effort & Inspection: not able to speak in complete sentences, abnormal respiratory pattern, cough and other (severe dyspnea, unable to speak without being SOB) Auscultation: wheezes expiratory wheezes Other: LS improved expiratory wheezing only. Cardio Jugular venous pressure: no JVD Rate: regular rate Rhythm: regular rhythm Heart Sounds: S1 normal, S2 normal and no murmurs GI Inspection: normal to inspection Palpation: soft and no hepatosplenomegaly Auscultation: normal bowel sounds Skin General skin exam: no rashes or lesions noted Neuro General: alert, awake and oriented x3 Objective Objective Clinical Data: Abnormal lab results 09/12/18 09/12/18 Range/Units 06:45 06:45 RBC 3.69 L (4.00-5.20) m/cumm Hgb 11.5 L (12.0-15.5) g/dL Hct 35.9 L (36.0-46.0) % MCV 97.3 H (80-95) fL RDW 14.8 H (11.7-14.6) % Absolute Neutrophils 8.71 H (1.2-6.7) k/cumm Absolute Lymphocytes 0.71 L (1.2-3.4) k/cumm Absolute Monocytes 0.71 H (0.11-0.7) k/cumm Glucose 204 H (70-100) mg/dL Vital Signs Temperature 36.1 C L 09/12/18 07:35 Temperature Source Tympanic 09/12/18 07:35 Pulse 108 H 09/12/18 07:35 Pulse Rhythm Regular 09/12/18 09:07 Pulse 123 H 09/10/18 18:00 Respiratory Rate 17 09/12/18 07:35 Respiratory Effort Accessory Muscle Use 09/12/18 09:07 Respiratory Depth Shallow 09/12/18 09:07 Respiratory Pattern Normal 09/12/18 09:07 Blood Pressure 143/84 H 09/12/18 07:35 Pulse Oximetry 96 09/12/18 07:35 Oxygen Delivery Method Nasal Cannula 09/12/18 07:35 Oxygen Flow Rate 3 09/12/18 07:35 Fraction of Inspired Oxygen (FIO2) 4 09/11/18 15:13 Pain Level 7 09/12/18 11:00 Comment 09/11/18 19:35 Intake & Output 09/11/18 09/11/18 09/12/18 11:59 23:59 11:59 Intake Total 250 / 2511.250 2261.250 / 2511.250 1010 / 1010 Output Total 300 / 300 200 / 200 Balance 250 / 2211.250 1961.250 / 2211.250 810 / 810 Intake: IV 250 / 9811.458 5556.250 / 1431.250 660 / 660 Oral 1080 / 1080 350 / 350 Output: Urine 300 / 300 200 / 200 Other: Urine Color Yellow Yellow Urine Appearance Clear Clear Clear Urine Odor None None Comment pt has voided x 2 so far this shift. pt was incontinent at beginning of shift Voiding Methods Toilet Toilet Laboratory Results WBC 10.13 k/cumm (4.4-10.8) 09/12/18 06:45 RBC 3.69 m/cumm (4.00-5.20) L 09/12/18 06:45 Hgb 11.5 g/dL (12.0-15.5) L 09/12/18 06:45 Hct 35.9 % (36.0-46.0) L 09/12/18 06:45 MCV 97.3 fL (80-95) H 09/12/18 06:45 MCH 31.2 pg (27.0-33.0) 09/12/18 06:45 MCHC 32.0 g/dL (32.0-36.0) 09/12/18 06:45 RDW 14.8 % (11.7-14.6) H 09/12/18 06:45 Plt Count 192 x1000/uL (130-400) 09/12/18 06:45 MPV 10.1 fL (8.0-11.0) 09/12/18 06:45 Immature Gran % 2.5 09/12/18 06:45 Neutrophils % 86.0 09/12/18 06:45 Band Neutrophils % 0.0 % 09/12/18 06:45 Lymphocytes % 6.0 09/12/18 06:45 Atypical Lymphs % 1 09/12/18 06:45 Monocytes % 7.0 09/12/18 06:45 Eosinophils % 0.0 09/12/18 06:45 Basophils % 0.3 09/12/18 06:45 Absolute Neutrophils 8.71 k/cumm (1.2-6.7) H 09/12/18 06:45 Absolute Lymphocytes 0.71 k/cumm (1.2-3.4) L 09/12/18 06:45 Absolute Monocytes 0.71 k/cumm (0.11-0.7) H 09/12/18 06:45 Absolute Eosinophils 0.00 k/cumm (0.0-0.7) 09/12/18 06:45 Absolute Basophils 0.03 k/cumm (0.0-0.2) 09/12/18 06:45 Differential Comment Manual differential 09/12/18 06:45 RBC Morphology Normal 09/12/18 06:45 Anisocytosis 1+ 09/10/18 18:01 Sodium 138 mmol/L (136-145) 09/12/18 06:45 Potassium 4.6 mmol/L (3.5-5.1) 09/12/18 06:45 Chloride 102 mmol/L (98-107) 09/12/18 06:45 Carbon Dioxide 28.3 mmol/L (21.0-32.0) 09/12/18 06:45 Anion Gap 7.7 mmol/L (3-11) 09/12/18 06:45 BUN 13 mg/dL (7-18) 09/12/18 06:45 Creatinine 0.83 mg/dL (0.55-1.02) 09/12/18 06:45 Estimated GFR/1.73 m2 >= 60.00 (mL/min/1.73m2) 09/12/18 06:45 Glucose 204 mg/dL (70-100) H 09/12/18 06:45 Lactate 1.3 mmol/l (0.6-1.4) 09/10/18 18:50 Calcium 9.0 mg/dL (8.5-10.1) 09/12/18 06:45 Magnesium 2.3 mg/dL (1.8-2.4) 09/12/18 06:45 Total Bilirubin 0.3 mg/dL (0.2-1.0) 09/10/18 18:01 AST 34 U/L (15-37) 09/10/18 18:01 ALT 31 U/L (12-78) 09/10/18 18:01 Alkaline Phosphatase 84 U/L (46-116) 09/10/18 18:01 Troponin I < 0.05 ng/mL (0.00-0.06) 09/10/18 18:01 NT-Pro-B Natriuret Pep 279 pg/mL (-299) 09/10/18 18:01 Total Protein 7.8 g/dL (6.4-8.2) 09/10/18 18:01 Albumin 3.4 g/dL (3.4-5.0) 09/10/18 18:01 Procalcitonin < 0.1 ng/mL 09/11/18 09:30 Ethyl Alcohol < 3.0 mg/dL (<3) 09/10/18 18:01
--- NOTE | 2018-09-12 12:16 | PHARADMIT ---
Addendum entered by Saniya Baeza 09/14/18 14:45: Pharmacy Note Subjective c/o L shoulder pain Objective VS ok, Afebrile, no weight, BG 297 Na++ 135, K+ 5.0, Mag 1.8 Vanco trough today 17.9 No repeat EKG for QTC interval Assessment Triple Anbx being treated for HCAP day#4 of 5 Oxazepam dc'd....not scoring on CIWA Magox 400mg x1 today Solumedrol IV changed to Prednisone Continue same Vanco dose Plan Anticipate discharge soon Original Note: Admission Pharmacy Clinical Review COPD Code Status DNI Current Weight Wgt-82 kg Renally Cleared and Narrow Therapeutic Index Meds CrCl~ 62.6 mL/min Meds-OK QTc Value / Action Taken QTc-458 (Zithromax, Trazodone, Risperidone, Zosyn, Omeprazole) BP Control, Fever BP- 143/84 Tmax- 37.1C Electrolytes reviewed Na- 138 K+4.6 Mag- 2.3 DVT Prophylaxis Lovenox 40mg Opiate Usage / Scheduled Bowel Regimen Ordered Yes Yes Plt/SCr for Heparin / Enoxaparin Plts- 192 SCr- 0.83 INR for Warfarin na H/H stable, WBC/Bands H&H- 11.5/35.9 WBC- 10.13 Antibiotic appropriateness Azithromycin, Cefepime, Vancomycin Cultures and Sensitivities Blood- No Growth Surgical ABX d/c within 24 hr na DM control / Insulin Dosing BG- 204 Heart Failure (Check EF%) (ELOY's, B-Block, Diuretics) Lisinopril, IV to PO Switch No Home Meds Reviewed Yes Home Meds Not Ordered Calcium, EpiPen, Meloxicam, Comments on CIWA protocol
--- NOTE | 2018-09-12 13:32 | PDOC.CMPRO ---
- If Service Date Differs Date of service: 09/12/18 Time of Service: 13:32 Care Management Progress Note S/O: CM met with Goldie at the bedside and her counselor Lorena. Lorena suggest that Goldie be discharge to a SNF level of care. Susan Morrow through [employer] for care is searching for an adult half-way for Goldie. Goldie reported on admission she is not able to care for self well at home she forgets her medications and gets confused about when to take her medications. Goldie continues to need IV antibiotics and respiratory support and remains acute at this time. JOSÉ did speak with Goldie's community career guidance counselor today Dionne Christianson at [facility] she has not met with Goldie yet however will when she is discharged. Goldie is stating today she does not want a referral to SNF and will plan to return home with resumption of home health services when she is medically ready. A:Goldie is a 58 year old female admitted COPD Exacerbation P: Goldie remains acute at this time she will return home with resumption of home health services and oxygen when she is medically ready. [facility] to transport home.
--- NOTE | 2018-09-12 13:48 | CMPROGNOTE_ITS ---
- If Service Date Differs Date of service: 09/12/18 Time of Service: 13:32 Care Management Progress Note S/O: CM met with Goldie at the bedside and her counselor Lorena. Lorena suggest that Goldie be discharge to a SNF level of care. Susanbilly Morrow through [employer] for care is searching for an adult halfway for Goldie. Goldie reported on admission she is not able to care for self well at home she forgets her medications and gets confused about when to take her medications. Goldie continues to need IV antibiotics and respiratory support and remains acute at this time. JOSÉ did speak with Goldie's community respiratory care specialist today Dionne Christianson at [facility] she has not met with Goldie yet however will when she is discharged. Goldie is stating today she does not want a referral to SNF and will plan to return home with resumption of home health services when she is medically ready. A:Goldie is a 58 year old female admitted COPD Exacerbation P: Goldie remains acute at this time she will return home with resumption of home health services and oxygen when she is medically ready. [facility] to transport h ome.
[2018-09-12] MEDS: Enoxaparin 40 MG/0.4 ML SYR SC (13:50)
[2018-09-12] MEDS: Benzonatate 100 MG CAP PO ×2 (13:50→19:17)
--- NOTE | 2018-09-12 15:01 | CHAPLAIN ---
Goldie was sitting up in her chair when I visited. She was pleasant and engaged in a conversation. I explained my role and offered support. I will check in with Goldie again tomorrow.
--- NOTE | 2018-09-12 16:17 | PTTR_ITS ---
Date of service: 09/12/18 Time of Service: 15:44 PT Notes Inpatient Physical Therapy Treatment Note [facility] Date: 09/12/2018 PRECAUTIONS: Fall. Standard. SUBJECTIVE: Patient agreeable to a second session this afternoon. She reports left shoulder pain at 3/10. She states that she has had her pain pill with some 10 minutes. She denies any increase in pain complaint with ambulation activity and with standing level balance exercises. OBJECTIVE: Patient seen sitting on chair for afternoon session. IV in right UE. Oxygen nasal cannula on with 3 L/min. BED MOBILITY/TRANSFERS Sit-stand: SBA Stand-sit: SBA Bed-Chair: SBA Chair-bed: SBA GAIT Assistive Device: FWW Weight bearing: FWB Assist: CGA Distance: 100 feet Deviation: Decreased gait velocity as patient states that her oxygen level responds better and he fatigues less with slower gait speed. No other remarkable gait deviation noted VITALS: Oxygen saturation after gait activity was 95% on 3 L/min, HR 108 bpm THEREX: Patient completed /standing level exercises which included heel raises, partial knee bends, and standing high marches as indicated in exercise flow sheet without undue fatigue, significant increase in pain, increase in dyspnea. ASSESSMENT: Patient demonstrates good tolerance to physical therapy session with observed improvement in terms of pain level, activity tolerance, self- efficacy/confidence, and participation level. PLAN: Patient will benefit from home health PT services in order to progress mobility level using least restrictive assistive ambulatory device/using no device, assess home safety, identify additional equipment needs, and establish a functional maintenance program that will increase ability of patient to remain at home. Patient to progress with mobility level, functional performance, and knowledge of HEP to achieve previously established goals. TREATMENT CODE/TIME: 20486 x 15 minutes, 76677 x 12 minutes beginning at 15:41 PM.
[2018-09-12 17:32] LABS: Vancomycin, Trough 16.9 ug/mL (10.0-20.0)
[2018-09-12] MEDS: traZODone 100 MG TAB PO (19:17)
[2018-09-12] MEDS: Zolpidem 5 MG TAB 10 MG PO (19:17)
[2018-09-12] MEDS: guaiFENesin 600 MG TABCR PO (19:17)
[2018-09-12] MEDS: risperiDONE 0.5 MG TAB 1.5 MG PO (19:17)
[2018-09-12] MEDS: AZITHROMYCIN 250 MG in Normal Saline 250 ML 83 MG IVPB (21:45)
[2018-09-13] VITALS (11 sets, daily range): BP systolic 130–175; BP diastolic 76–95; PULSE 90–107; RESP 4–22; TEMP 34.4–37.2; O2SAT 95–98
[2018-09-13] MEDS: Albuterol/Ipratropium 3 ML UPD VIAL UPD ×6 (00:01→19:30)
[2018-09-13] MEDS: methylPREDNISolone SUCC 40 MG VIAL IVP ×3 (01:15→22:17)
[2018-09-13] MEDS: Normal Saline Flush 10 ML SYR IVP ×4 (01:16→22:17)
[2018-09-13] MEDS: CEFEPIME 2 GM in Normal Saline 100 ML IVPB ×3 (01:16→18:01)
[2018-09-13] MEDS: Levothyroxine 75 MCG TAB PO (05:25)
[2018-09-13] MEDS: Omeprazole 20 MG CAPCR 40 MG PO (05:26)
[2018-09-13] MEDS: Polyethylene Glycol 3350 17 GM PACKET PO (06:25)
[2018-09-13 07:21] LABS: HCT 35.1 % (36.0-46.0); HGB 11.5 g/dL (12.0-15.5); Mean Corp. HGB Concentration 32.8 g/dL (32.0-36.0); Mean Corpuscular Hemoglobin 31.9 pg (27.0-33.0); Mean Corpuscular Volume 97.2 fL (80-95); Mean Platelet Volume 9.8 fL (8.0-11.0); Platelet Count 226 x1000/uL (130-400); RBC 3.61 m/cumm (4.00-5.20); RBC Distribution Width 14.6 % (11.7-14.6); White Blood Cell Count 11.39 k/cumm (4.4-10.8)
[2018-09-13 07:43] LABS: Anion Gap 8.9 mmol/L (3-11); BUN 14 mg/dL (7-18); CO2 28.1 mmol/L (21.0-32.0); CREATININE 0.79 mg/dL (0.55-1.02); Calcium 8.6 mg/dL (8.5-10.1); Chloride 99 mmol/L (98-107); Glucose 256 mg/dL (70-100); Magnesium 2.1 mg/dL (1.8-2.4); Potassium 4.7 mmol/L (3.5-5.1); Sodium 136 mmol/L (136-145)
[2018-09-13 08:21] LABS: Absolute Lymphocyte Count 1.25 k/cumm (1.2-3.4); Absolute Neutrophil Count 9.11 k/cumm (1.2-6.7)
[2018-09-13 08:22] LABS: Atypical Lymphocytes % 2
[2018-09-13 08:24] LABS: Absolute Monocyte Count 0.68 k/cumm (0.11-0.7); Diff Comment Manual Differential; Polychromasia Present
[2018-09-13] MEDS: Folic Acid 1 MG TAB PO (08:56)
[2018-09-13] MEDS: Magnesium Oxide 400 MG TAB 800 MG PO ×2 (08:56→19:30)
[2018-09-13] MEDS: Lisinopril 5 MG TAB PO (08:56)
[2018-09-13] MEDS: Gabapentin 400 MG CAP PO ×3 (08:57→19:30)
[2018-09-13] MEDS: Multivitamin TAB 1 TAB PO (08:57)
[2018-09-13] MEDS: guaiFENesin 600 MG TABCR PO ×2 (08:57→19:29)
[2018-09-13] MEDS: buPROPion-XL 150 MG TABCR 300 MG PO (08:57)
[2018-09-13] MEDS: Thiamine 100 MG TAB PO (08:57)
[2018-09-13] MEDS: oxyCODONE 5 MG TAB PO ×2 (08:57→18:02)
[2018-09-13] MEDS: Benzonatate 100 MG CAP PO ×3 (08:57→19:30)
[2018-09-13] MEDS: Budesonide 0.5 MG/2 ML UPD VIAL UPD ×2 (10:03→19:30)
--- NOTE | 2018-09-13 10:15 | OT.INDS ---
Date of service: 09/13/18 Time of Service: 09:05 Occupational Therapy Notes Occupational Therapy Inpatient Discharge Summary Date: 09/13/18 Dates of Service: 09/12/18-09/13/18 Referring Doctor:Cindy De La Garza NP OT Orders: Strengthening Precautions: Fall, Standard PATIENT PROFILE/ADMITTING DIAGNOSIS: Pt is a 58 year old female who presented to the ER after being seen by her PCP and her PCP recommending that she stay at the hospital in [place]. Pt denied and was then seen at [facility] in the ER and admitted to [facility] for COPD exacerbation, HCAP, and hypoxia. Past Medical History: Medical History Anxiety disorder (Chronic) Respiratory failure (Acute) COPD exacerbation (Acute) Hypothyroidism (acquired) (Acute) Pulmonary histiocytosis x (Acute) Bipolar disorder (Acute) Nicotine dependence with current use (Acute) Hx of hysterectomy (Chronic) Surgical History History of right shoulder replacement (Acute) Hx of bilateral cataract extraction (Acute) Hx of section (Chronic) Social History/Home Situation: Pt lives in a handicap accessible apartment on the 4th floor in her apartment building in [facility]. She states that she previously had HHPT, OT and nursing coming into her home 2x/week. She was recently accepted to [facility]. She has a daughter and 8 year old granddaughter who live in [place], [place]. She states that she gets rides with [facility] or a close friend who (A) when she needs help. 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 She states that she has a tub/shower with shower bench, she has a raised toilet and that she is able to eat/brush her teeth and hair and go to the bathroom all (I). She does not that d/t her (R) shoulder she has difficulty with house keeping and if her pain gets really bad it takes her longer to perform her ADLs/IADLs then she likes. She uses a quad cane most of the time for functional mobility. She notes that this really depends on how tired she is. Equipment owned/DME: quad cane, FWW, wheel chair, shower bench, handicap accessible apartment, portable O2 nasal cannula SUBJECTIVE: Pt was sitting in chair when OT arrived. She was agreeable to OT session she states that she would like to perform her ADLs at the sink today. OBJECTIVE: ROM: RUE Shoulder flexion limited pending shoulder surgery which she is being seen for on an outpatient basis. Elbow WNL, hand and digits WNL L UE AROM to 140*, elbow WNL, hand and digits WNL STRENGTH: RUE Shoulder flexion 3-/4, bicep 2+/5, tricep 3-/5, neurology nurse is weak and symmetrical pt is (R) handed. LUE Shoulder flexion 3-/4, bicep 2+/5, tricep 3-/5, neurology nurse is weak and symmetrical FUNCTIONAL MOBILITY/ADLS: DRESSING Dressing LE (I) don and doffing (B) socks, (I) don and doff underwear in standing position. Dressing UE (I) don and doff hospital gown standing at sink with FWW (S) Grooming- standing at sink with FWW (S) (I) donning teeth and brushing hair with ideal technique Bathing standing at sink with FWW UE- (I) (B) UE, abdomen, and underarms, max (A) back LE- (I) yosvany area, (B) LE and feet Toileting On toilet (I) Eating Sitting in chair (I) BALANCE: Static sitting Normal Dynamic Sitting Normal Static Standing Good Dynamic Standing Good ASSESSMENT: Patient is a 58-year-old female referred to occupational therapy services with diagnosis of COPD exacerbation, HCAP and hypoxia. Pt has been seen for 2 skilled OT sessions. During todays session she demonstrated ideal functional activity tolerance standing at the sink with FWW. She was able to perform her bathing and dressing in the standing position. No LOB or difficulty. Pt functionally is able to perform her ADLs at her premorbid level of function. However she notes that the only thing she has trouble with is her laundry and would like increased services to (A) with folding her laundry. Based on pts current level of function and her functional (I) OT will discharge pt from skilled OT services at this time. GOALS 1. Transfers (I) with walker - met 2. Dressing (I) in sitting position -met 3. Bathing (I) sitting in chair- met 4. Toileting (I) on toilet- met 5. Eating (I) - met 6. Grooming (I) standing at sink brushing teeth and hair - met PLAN OF CARE/TREATMENT PLAN: Discharge pt from skilled OT services. DISCHARGE RECOMMENDATIONS OT recommends that pt return home with continued OT services vs. SNF for continued rehabilitation TREATMENT TIME/MINUTES/CODES [id number], 20 minutes (09:05) Gardenia Strong OTR/L [facility]
--- NOTE | 2018-09-13 10:18 | OTDS_ITS ---
Date of service: 09/13/18 Time of Service: 09:05 Occupational Therapy Notes Occupational Therapy Inpatient Discharge Summary Date: 09/13/18 Dates of Service: 09/12/18-09/13/18 Referring Doctor:Cindy De La Garza NP OT Orders: Strengthening Precautions: Fall, Standard PATIENT PROFILE/ADMITTING DIAGNOSIS: Pt is a 58 year old female who presented to the ER after being seen by her PCP and her PCP recommending that she stay at the hospital in [place]. Pt denied and was then seen at [facility] in the ER and admitted to [facility] for COPD exacerbation, HCAP, and hypoxia. Past Medical History: Medical History Anxiety disorder (Chronic) Respiratory failure (Acute) COPD exacerbation (Acute) Hypothyroidism (acquired) (Acute) Pulmonary histiocytosis x (Acute) Bipolar disorder (Acute) Nicotine dependence with current use (Acute) Hx of hysterectomy (Chronic) Surgical History History of right shoulder replacement (Acute) Hx of bilateral cataract extraction (Acute) Hx of section (Chronic) Social History/Home Situation: Pt lives in a handicap accessible apartment on the 4th floor in her apartment building in [facility]. She states that she previously had HHPT, OT and nursing coming into her home 2x/week. She was recently accepted to [facility] [facility]. She has a daughter and 8 year old granddaughter who live in [place], [place]. She states that she gets rides with [facility] or a close friend who (A) when she needs help. 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 She states that she has a tub/shower with shower bench, she has a raised toilet and that she is able to eat/brush her t eeth and hair and go to the bathroom all (I). She does not that d/t her (R) shoulder she has difficulty with house keeping and if her pain gets really bad it takes her longer to perform her ADLs/IADLs then she likes. She uses a quad cane most of the time for functional mobility. She notes that this really depends on how tired she is. Equipment owned/DME: quad cane, FWW, wheel chair, shower bench, handicap accessible apartment, portable O2 nasal cannula SUBJECTIVE: Pt was sitting in chair when OT arrived. She was agreeable to OT session she states that she would like to perform her ADLs at the sink today. OBJECTIVE: ROM: RUE Shoulder flexion limited pending shoulder surgery which she is being seen for on an outpatient basis. Elbow WNL, hand and digits WNL L UE AROM to 140*, elbow WNL, hand and digits WNL STRENGTH: RUE Shoulder flexion 3-/4, bicep 2+/5, tricep 3-/5, hvac residential service technician is weak and symmetrical pt is (R) handed. LUE Shoulder flexion 3-/4, bicep 2+/5, tricep 3-/5, hvac residential service technician is weak and symmetrical FUNCTIONAL MOBILITY/ADLS: DRESSING Dressing LE (I) don and doffing (B) socks, (I) don and doff underwear in standing position. Dressing UE (I) don and doff hospital gown standing at sink with FWW (S) Grooming- standing at sink with FWW (S) (I) donning teeth and brushing hair with ideal technique Bathing standing at sink with FWW UE- (I) (B) UE, abdomen, and underarms, max (A) back LE- (I) yosvany area, (B) LE and feet Toileting On toilet (I) Eating Sitting in chair (I) BALANCE: Static sitting Normal Dynamic Sitting Normal Static Standing Good Dynamic Standing Good ASSESSMENT: Patient is a 58-year-old female referred to occupational therapy services with diagnosis of COPD exacerbation, HCAP and hypoxia. Pt has been seen for 2 skilled OT sessions. During todays session she demonstrated ideal functional activity tolerance standing at the sink with FWW. She was able to perform her bathing and dressing in the standing position. No LOB or difficulty. Pt functionally is able to perform her ADLs at her premorbid level of function. However she notes that the only thing she has trouble with is her laundry and would like increased services to (A) with folding her laundry. Based on pts current level of function and her functional (I) OT will discharge pt from skilled OT services at this time. GOALS 1. Transfers (I) with walker - met 2. Dressing (I) in sitting position -met 3. Bathing (I) sitting in chair- met 4. Toileting (I) on toilet- met 5. Eating (I) - met 6. Grooming (I) standing at sink brushing teeth and hair - met PLAN OF CARE/TREATMENT PLAN: Discharge pt from skilled OT services. DISCHARGE RECOMMENDATIONS OT recommends that pt return home with continued OT services vs. SNF for continued rehabilitation TREATMENT TIME/MINUTES/CODES [id number], 20 minutes (09:05) Gardenia Strong OTR/L [facility]
--- NOTE | 2018-09-13 10:25 | PDOC.CMPRO ---
Care Management Progress Note S/O: Goldie was sitting up in her chair, she was pleasant in interaction and forthcoming with information. She reported her employment case manager at [employer], Luz Marina was planning on coming to visit her tomorrow at [facility] and continues to work on [employer] application. Goldie reported [facility] is working on coordinating an Adult Family skilled nursing, which Goldie is looking forward to. CM continues to follow. A: Goldie is a 58 year old female admitted to [facility] 09/10/18 with COPD Exacerbation P: Goldie continues to require IV antibiotics and respiratory support at this time. She plans to return home with resumption of home health services and oxygen when medically ready. Her community showcase maker will continue to seek more supportive placement post discharge. Goldie will transport via [facility].
--- NOTE | 2018-09-13 10:28 | CMPROGNOTE_ITS ---
Care Management Progress Note S/O: Goldie was sitting up in her chair, she was pleasant in interaction and forthcoming with information. She reported her pillowcase cleaner at [facility], Luz Marina was planning on coming to visit her tomorrow at [facility] and continues to work on [employer] application. Goldie reported [facility] is working on coordinating an Adult Family halfway, which Goldie is looking forward to. CM continues to follow. A: Goldie is a 58 year old female admitted to [facility] 09/10/18 with COPD Exacerbation P: Goldie continues to require IV antibiotics and respiratory support at this time. She plans to return home with resumption of home health services and oxygen when medically ready. Her community lead case manager will continue to seek more supportive placement post discharge. Goldie will transport via [facility].
--- NOTE | 2018-09-13 12:36 | PT.INTREAT ---
Date of service: 09/13/18 Time of Service: 12:36 PT Notes Inpatient Physical Therapy Treatment Note [facility] Date: 09/13/2018 PRECAUTIONS: Fall SUBJECTIVE: Goldie states she is feeling a little bit better today, she is agreeable to participating in PT. OBJECTIVE: PAIN: No complaints of pain BED MOBILITY/TRANSFERS Sit-stand: S Stand-sit: S GAIT Assistive Device: FWW Weight bearing: Full Assist: SBA Distance: 200' in a.m.; 300' in p.m. Deviation: SOB, seated rest at completion of gait training for recovery THEREX: Patient completed a lower extremity strengthening program, in a standing position with FWW support, as per flow sheet. Patient also completes functional [id number] exercise, as per flow sheet. Patient demonstrates increased SOB with activity requiring short standing rest between each exercise. ASSESSMENT: Patient tolerated session with complaints of increased SOB with activity. Patient was able to tolerate a progression in gait distance with FWW support and SBA. Patient would benefit from continued gait training and general conditioning for improved cardiovascular endurance and activity tolerance. PLAN: Continue with PTs POC TREATMENT CODE/TIME: Session 1: 20 minutes; 47451 Session 2: 25 minutes; [id number], [id number]
--- NOTE | 2018-09-13 12:39 | PTTR_ITS ---
Date of service: 09/13/18 Time of Service: 12:36 PT Notes Inpatient Physical Therapy Treatment Note [facility] Date: 09/13/2018 PRECAUTIONS: Fall SUBJECTIVE: Goldie states she is feeling a little bit better today, she is agreeable to participating in PT. OBJECTIVE: PAIN: No complaints of pain BED MOBILITY/TRANSFERS Sit-stand: S Stand-sit: S GAIT Assistive Device: FWW Weight bearing: Full Assist: SBA Distance: 200' in a.m.; 300' in p.m. Deviation: SOB, seated rest at completion of gait training for recovery THEREX: Patient completed a lower extremity strengthening program, in a standing position with FWW support, as per flow sheet. Patient also completes functional [id number] exercise, as per flow sheet. Patient demonstrates increased SOB with activity requiring short standing rest between each exercise. ASSESSMENT: Patient tolerated session with complaints of increased SOB with activity. Patient was able to tolerate a progression in gait distance with FWW support and SBA. Patient would benefit from continued gait training and general conditioning for improved cardiovascular endurance and activity tolerance. PLAN: Continue with PTs POC TREATMENT CODE/TIME: Session 1: 20 minutes; [id number] Session 2: 25 minutes; [id number], [id number]
--- NOTE | 2018-09-13 14:10 | CHAPLAIN ---
Goldie was sitting up in her chair, texting friends when I visited. she said she is feeling better, but added that she has been in the hospital six times in the past year and there has been less and less time between admissions. She said that her lung condition keep her in a vulnerable state, and she gets sick easily. I left with nursing staff came in. I will visit again tomorrow.
[2018-09-13] MEDS: Enoxaparin 40 MG/0.4 ML SYR SC (14:27)
--- NOTE | 2018-09-13 17:25 | W.PM.PROGNOT ---
Date of Service Date of service: 09/13/18 Time of Service: 17:25 Assessment and Plan (1) HCAP (healthcare-associated pneumonia): Current visit: Yes Status: Acute Improving. Appears to be nearing baseline. Continue nebs, steroids, updrafts, and antibiotics. Day 3 of cefipime and vancomycin. Sputum growing normal kristen and timothy. Blood cultures with no growth at 48 hours. Continue IV antibiotics, taper steroids. (2) COPD (chronic obstructive pulmonary disease): Current visit: Yes Status: Chronic as above. (3) Bipolar disorder: Current visit: No Status: Acute Continue home Risperdal regimen. (4) Nicotine dependence with current use: Current visit: No Status: Acute Chronically on oxygen at home. Continues to smoke- counseled on risks. Continue to encourage smoking cessation. (5) Alcohol abuse: Current visit: Yes Status: Chronic Not scoring on CIWA protocol. On scheduled oxazepam with PRN ativan. Continue to monitor for withdrawal. (6) Left shoulder pain: Current visit: Yes Status: Acute Has been seen as outpatient by Dr. Leblanc. Jayue Oxycodone for pain control. Will need follow up with ortho as an outpatient. (7) Hypoxia: Current visit: Yes Status: Acute Chronically on oxygen at home, at baseline. (8) DVT prophylaxis: Current visit: Yes Status: Acute Subcutaneous lovenox. (9) Discharge planning issues: Current visit: Yes Status: Acute She is a DNI. This case was discussed with Dr. Mirza who is in agreement. Subjective Interval history since last seen: Ms Pa reports feeling near baseline. She reports that she has home oxygen at 3lpm. She reports that her cough has improved, she is no longer producing sputum, her wheezing has improved, her shortness of breath is at baseline. She denies chest pain/pressure, palpitations. She is eating and drinking, she denies abdominal pain, nausea, vomiting or diarrhea. She had a small bowel movement today. She is working with physical therapy. She is requesting that she get her evening oxycodone earlier as she goes to bed early. Exam Narrative Exam Narrative: General: appears older than stated age, sitting up in the chair in no acute distress. Calm and appropriate, answers questions appropriately. HEENT: normocephalic, atraumatic, pupils equal and round, EOMI, mucous membranes moist. Neck: supple, no JVD. Respiratory: respirations even and unlabored, does not appear short of breath, expiratory wheezing noted bilaterally, R>L. able to speak in complete sentences with no shortness of breath. Cardiovascular: heart has regular rate and rhythm, no murmur appreciated. GI: abdomen soft, nondistended, normoactive bowel sounds, nontender on palpation. Extremities: no clubbing cyanosis or edema. Pedal pulses palpable bilaterally. Objective Objective Clinical Data: Abnormal lab results 09/13/18 09/13/18 Range/Units 06:27 06:27 WBC 11.39 H (4.4-10.8) k/cumm RBC 3.61 L (4.00-5.20) m/cumm Hgb 11.5 L (12.0-15.5) g/dL Hct 35.1 L (36.0-46.0) % MCV 97.2 H (80-95) fL Absolute Neutrophils 9.11 H (1.2-6.7) k/cumm Glucose 256 H (70-100) mg/dL Vital Signs Temperature 36.7 C 09/13/18 16:00 Temperature Source Tympanic 09/13/18 16:00 Pulse 90 09/13/18 16:00 Pulse Rhythm Regular 09/13/18 09:35 Pulse 123 H 09/10/18 18:00 Respiratory Rate 22 09/13/18 16:00 Respiratory Effort 09/13/18 09:35 Respiratory Depth Normal 09/13/18 09:35 Respiratory Pattern Normal 09/13/18 09:35 Blood Pressure 149/92 H 09/13/18 16:00 Pulse Oximetry 96 09/13/18 16:00 Oxygen Delivery Method Nasal Cannula 09/13/18 16:00 Oxygen Flow Rate 3 09/13/18 16:00 Fraction of Inspired Oxygen (FIO2) 4 09/11/18 15:13 Pain Level 2 09/13/18 16:00 Comment 09/11/18 19:35 Intake & Output 09/12/18 09/13/18 09/13/18 23:59 11:59 23:59 Intake Total 2221.15 / 3731.15 1326.667 / 1566.667 240 / 1566.667 Output Total 600 / 800 1200 / 1200 Balance 1621.15 / 2931.15 126.667 / 366.667 240 / 366.667 Intake: IV 1741.15 / 2401.15 816.667 / 816.667 Oral 480 / 1330 510 / 750 240 / 750 Output: Urine 600 / 800 1200 / 1200 Other: Urine Color Yellow Yellow Urine Appearance Clear Clear Urine Odor Normal None Comment unable to determine volume or color no hat in place, pt flushed withoug looking. RN put hat back in, spoke with pt about keeping it in place. Pt agreed. Voiding Methods Toilet Toilet Laboratory Results WBC 11.39 k/cumm (4.4-10.8) H 09/13/18 06:27 RBC 3.61 m/cumm (4.00-5.20) L 09/13/18 06:27 Hgb 11.5 g/dL (12.0-15.5) L 09/13/18 06:27 Hct 35.1 % (36.0-46.0) L 09/13/18 06:27 MCV 97.2 fL (80-95) H 09/13/18 06:27 MCH 31.9 pg (27.0-33.0) 09/13/18 06:27 MCHC 32.8 g/dL (32.0-36.0) 09/13/18 06:27 RDW 14.6 % (11.7-14.6) 09/13/18 06:27 Plt Count 226 x1000/uL (130-400) 09/13/18 06:27 MPV 9.8 fL (8.0-11.0) 09/13/18 06:27 Immature Gran % See Differential 09/13/18 06:27 Neutrophils % 79.0 09/13/18 06:27 Band Neutrophils % 1.0 % 09/13/18 06:27 Lymphocytes % 9.0 09/13/18 06:27 Atypical Lymphs % 2 09/13/18 06:27 Monocytes % 6.0 09/13/18 06:27 Eosinophils % 0.0 09/13/18 06:27 Basophils % 0.0 09/13/18 06:27 Metamyelocytes % 1.0 % 09/13/18 06:27 Myelocytes % 2.0 % 09/13/18 06:27 Absolute Neutrophils 9.11 k/cumm (1.2-6.7) H 09/13/18 06:27 Absolute Lymphocytes 1.25 k/cumm (1.2-3.4) 09/13/18 06:27 Absolute Monocytes 0.68 k/cumm (0.11-0.7) 09/13/18 06:27 Absolute Eosinophils 0.00 k/cumm (0.0-0.7) 09/13/18 06:27 Absolute Basophils 0.00 k/cumm (0.0-0.2) 09/13/18 06:27 Differential Comment Manual differential 09/13/18 06:27 RBC Morphology See below 09/13/18 06:27 Polychromasia Present 09/13/18 06:27 Anisocytosis 1+ 09/10/18 18:01 Sodium 136 mmol/L (136-145) 09/13/18 06:27 Potassium 4.7 mmol/L (3.5-5.1) 09/13/18 06:27 Chloride 99 mmol/L (98-107) 09/13/18 06:27 Carbon Dioxide 28.1 mmol/L (21.0-32.0) 09/13/18 06:27 Anion Gap 8.9 mmol/L (3-11) 09/13/18 06:27 BUN 14 mg/dL (7-18) 09/13/18 06:27 Creatinine 0.79 mg/dL (0.55-1.02) 09/13/18 06:27 Estimated GFR/1.73 m2 >= 60.00 (mL/min/1.73m2) 09/13/18 06:27 Glucose 256 mg/dL (70-100) H 09/13/18 06:27 Lactate 1.3 mmol/l (0.6-1.4) 09/10/18 18:50 Calcium 8.6 mg/dL (8.5-10.1) 09/13/18 06:27 Magnesium 2.1 mg/dL (1.8-2.4) 09/13/18 06:27 Total Bilirubin 0.3 mg/dL (0.2-1.0) 09/10/18 18:01 AST 34 U/L (15-37) 09/10/18 18:01 ALT 31 U/L (12-78) 09/10/18 18:01 Alkaline Phosphatase 84 U/L (46-116) 09/10/18 18:01 Troponin I < 0.05 ng/mL (0.00-0.06) 09/10/18 18:01 NT-Pro-B Natriuret Pep 279 pg/mL (-299) 09/10/18 18:01 Total Protein 7.8 g/dL (6.4-8.2) 09/10/18 18:01 Albumin 3.4 g/dL (3.4-5.0) 09/10/18 18:01 Procalcitonin < 0.1 ng/mL 09/11/18 09:30 Vancomycin Trough 16.9 ug/mL (10.0-20.0) 09/12/18 16:50 Ethyl Alcohol < 3.0 mg/dL (<3) 09/10/18 18:01
[2018-09-13] MEDS: Docusate Sodium 100 MG CAP PO (19:29)
[2018-09-13] MEDS: risperiDONE 0.5 MG TAB 1.5 MG PO (19:29)
[2018-09-13] MEDS: Zolpidem 5 MG TAB 10 MG PO (19:30)
[2018-09-13] MEDS: traZODone 100 MG TAB PO (19:30)
[2018-09-13] MEDS: AZITHROMYCIN 250 MG in Normal Saline 250 ML 83 MG IVPB (22:17)
[2018-09-14] VITALS (11 sets, daily range): BP systolic 140–159; BP diastolic 76–96; PULSE 64–103; RESP 4–20; TEMP 35–36.6; O2SAT 94–99
[2018-09-14] MEDS: Albuterol/Ipratropium 3 ML UPD VIAL UPD ×6 (00:18→19:24)
[2018-09-14] MEDS: CEFEPIME 2 GM in Normal Saline 100 ML IVPB ×3 (01:57→17:50)
[2018-09-14] MEDS: Polyethylene Glycol 3350 17 GM PACKET PO (04:04)
[2018-09-14] MEDS: Normal Saline Flush 10 ML SYR IVP (06:09)
[2018-09-14] MEDS: Levothyroxine 75 MCG TAB PO (06:09)
[2018-09-14] MEDS: Omeprazole 20 MG CAPCR 40 MG PO (06:09)
[2018-09-14 07:09] LABS: HGB 11.7 g/dL (12.0-15.5); Mean Corp. HGB Concentration 32.5 g/dL (32.0-36.0); Mean Corpuscular Hemoglobin 31.5 pg (27.0-33.0); Mean Corpuscular Volume 96.8 fL (80-95); Mean Platelet Volume 9.9 fL (8.0-11.0); Platelet Count 227 x1000/uL (130-400); RBC 3.72 m/cumm (4.00-5.20); RBC Distribution Width 14.4 % (11.7-14.6); White Blood Cell Count 10.05 k/cumm (4.4-10.8)
[2018-09-14 07:25] LABS: Anion Gap 5.5 mmol/L (3-11); BUN 15 mg/dL (7-18); CO2 31.5 mmol/L (21.0-32.0); Calcium 9.3 mg/dL (8.5-10.1); Chloride 98 mmol/L (98-107); Glucose 297 mg/dL (70-100); Magnesium 1.8 mg/dL (1.8-2.4); Sodium 135 mmol/L (136-145)
[2018-09-14 07:44] LABS: Absolute Neutrophil Count 7.34 k/cumm (1.2-6.7)
[2018-09-14 07:46] LABS: Absolute Lymphocyte Count 1.51 k/cumm (1.2-3.4); Atypical Lymphocytes % 4
[2018-09-14 07:48] LABS: Diff Comment Manual Differential; Nucleated RBC 1 /100WBC
[2018-09-14 07:49] LABS: Polychromasia Present
[2018-09-14] MEDS: buPROPion-XL 150 MG TABCR 300 MG PO (08:26)
[2018-09-14] MEDS: Lisinopril 5 MG TAB PO (08:26)
[2018-09-14] MEDS: Magnesium Oxide 400 MG TAB 800 MG PO ×2 (08:27→19:22)
[2018-09-14] MEDS: oxyCODONE 5 MG TAB PO ×2 (08:27→17:50)
[2018-09-14] MEDS: Multivitamin TAB 1 TAB PO (08:27)
[2018-09-14] MEDS: Benzonatate 100 MG CAP PO ×3 (08:27→19:23)
[2018-09-14] MEDS: Folic Acid 1 MG TAB PO (08:27)
[2018-09-14] MEDS: guaiFENesin 600 MG TABCR PO ×2 (08:28→19:23)
[2018-09-14] MEDS: Gabapentin 400 MG CAP PO ×3 (08:28→19:23)
[2018-09-14] MEDS: Thiamine 100 MG TAB PO (08:28)
[2018-09-14] MEDS: Docusate Sodium 100 MG CAP PO ×2 (08:28→19:23)
[2018-09-14] MEDS: Milk of Magnesia 30 ML CUP PO (08:31)
[2018-09-14 10:09] LABS: Vancomycin, Trough 17.9 ug/mL (10.0-20.0)
[2018-09-14] MEDS: Budesonide 0.5 MG/2 ML UPD VIAL UPD ×2 (10:11→19:24)
[2018-09-14] MEDS: methylPREDNISolone SUCC 40 MG VIAL IVP (10:19)
[2018-09-14] MEDS: Magnesium Oxide 400 MG TAB PO (11:40)
--- NOTE | 2018-09-14 13:35 | PDOC.CMPRO ---
Care Management Progress Note S/O: Goldie was sitting up in her chair with oxygen on, she remains pleasant in interaction. CM continues to follow. No change to overall plan. A: Goldie is a 58 year old female admitted to [facility] 09/10/18 with COPD Exacerbation P: Goldie continues to require IV antibiotics and respiratory support at this time. She plans to return home with resumption of home health services and oxygen when medically ready. Her community field nurse case manager will continue to seek more supportive placement post discharge. Goldie will transport via [facility].
[2018-09-14] MEDS: Enoxaparin 40 MG/0.4 ML SYR SC (13:38)
--- NOTE | 2018-09-14 13:45 | W.PM.PROGNOT ---
Date of Service Date of service: 09/14/18 Time of Service: 13:47 Assessment and Plan (1) HCAP (healthcare-associated pneumonia): Current visit: Yes Status: Acute Improving. Appears to be at baseline. She will require 5 days of IV antibiotics. Continue nebs, steroids, updrafts, and antibiotics. Currently on Day #4 of cefipime and vancomycin. Sputum growing normal kristen and timothy. Blood cultures with no growth at 72 hours. Continue IV antibiotics. Transition to oral steroids. (2) COPD (chronic obstructive pulmonary disease): Current visit: Yes Status: Chronic as above. (3) Bipolar disorder: Current visit: No Status: Acute Continue home Risperdal regimen. (4) Nicotine dependence with current use: Current visit: No Status: Acute Chronically on oxygen at home. Continues to smoke- counseled on risks. Continue to encourage smoking cessation. (5) Alcohol abuse: Current visit: Yes Status: Chronic Not scoring on CIWA protocol. Discontinue scheduled oxazepam. Continue to monitor for withdrawal. (6) Left shoulder pain: Current visit: Yes Status: Acute Has been seen as outpatient by Dr. Leblanc. Continue Oxycodone for pain control. Will need follow up with ortho as an outpatient. (7) Hypoxia: Current visit: Yes Status: Acute Chronically on oxygen at home, at baseline. (8) DVT prophylaxis: Current visit: Yes Status: Acute Subcutaneous lovenox. (9) Discharge planning issues: Current visit: Yes Status: Acute She is a DNI. This case was discussed with Dr. Mirza who is in agreement. Subjective Interval history since last seen: Ms Pa reports feeling well today. She reports that her shortness of breath and wheezing are at her baseline. She remains on oxygen at 3 L/min, she is on oxygen at home continuously at 3 L/min. Her cough is improving, it is nonproductive. She denies chest pain/pressure, palpitations, dizziness, nausea, vomiting, diarrhea. She has not had a bowel movement today. She is eating and drinking and tolerating her diet. She denies dysuria or hematuria. She reports mild lower extremity edema. She is working with physical therapy and progressing well. She is looking forward to discharge home. Exam Narrative Exam Narrative: General: appears older than stated age, sitting up in the chair in no acute distress. Pleasant and calm, answers questions appropriately. HEENT: normocephalic, atraumatic, pupils equal and round, EOMI, mucous membranes moist. Neck: supple, no JVD. Respiratory: respirations even and unlabored, does not appear short of breath, expiratory wheezing noted bilaterally, R>L- wheezing improved as compared to yesterday. She is able to speak in complete sentences with no shortness of breath. Cardiovascular: heart has regular rate and rhythm, no murmur appreciated. GI: abdomen soft, nondistended, normoactive bowel sounds, nontender on palpation. Extremities: no clubbing cyanosis or edema. Pedal pulses palpable bilaterally. Objective Objective Clinical Data: Abnormal lab results 09/14/18 09/14/18 Range/Units 06:10 06:10 RBC 3.72 L (4.00-5.20) m/cumm Hgb 11.7 L (12.0-15.5) g/dL MCV 96.8 H (80-95) fL Absolute Neutrophils 7.34 H (1.2-6.7) k/cumm Sodium 135 L (136-145) mmol/L Glucose 297 H (70-100) mg/dL Vital Signs Temperature 36.6 C 09/14/18 11:30 Temperature Source Tympanic 09/14/18 11:30 Pulse 99 H 09/14/18 11:30 Pulse Rhythm Regular 09/14/18 08:37 Pulse 123 H 09/10/18 18:00 Respiratory Rate 18 09/14/18 11:30 Respiratory Effort 09/14/18 08:37 Respiratory Depth Normal 09/14/18 08:37 Respiratory Pattern Normal 09/14/18 08:37 Blood Pressure 142/90 H 09/14/18 11:30 Pulse Oximetry 94 L 09/14/18 11:30 Oxygen Delivery Method Nasal Cannula 09/14/18 11:30 Oxygen Flow Rate 3 09/14/18 11:30 Fraction of Inspired Oxygen (FIO2) 4 09/11/18 15:13 Pain Level 4 09/14/18 11:30 Comment 09/11/18 19:35 Intake & Output 09/13/18 09/14/18 09/14/18 23:59 11:59 23:59 Intake Total 780 / 2206.667 1160 / 1160 Balance 780 / 6964.565 5247 / 1160 Intake: IV 300 / 1216.667 680 / 680 Oral 480 / 990 480 / 480 Other: Urine Appearance Clear Comment pt missed hat in [place]liet Voiding Methods Toilet Laboratory Results WBC 10.05 k/cumm (4.4-10.8) 09/14/18 06:10 RBC 3.72 m/cumm (4.00-5.20) L 09/14/18 06:10 Hgb 11.7 g/dL (12.0-15.5) L 09/14/18 06:10 Hct 36.0 % (36.0-46.0) 09/14/18 06:10 MCV 96.8 fL (80-95) H 09/14/18 06:10 MCH 31.5 pg (27.0-33.0) 09/14/18 06:10 MCHC 32.5 g/dL (32.0-36.0) 09/14/18 06:10 RDW 14.4 % (11.7-14.6) 09/14/18 06:10 Plt Count 227 x1000/uL (130-400) 09/14/18 06:10 MPV 9.9 fL (8.0-11.0) 09/14/18 06:10 Immature Gran % 0.0 09/14/18 06:10 Neutrophils % 73.0 09/14/18 06:10 Band Neutrophils % 1.0 % 09/13/18 06:27 Lymphocytes % 11.0 09/14/18 06:10 Atypical Lymphs % 4 09/14/18 06:10 Monocytes % 6.0 09/14/18 06:10 Eosinophils % 0.0 09/14/18 06:10 Basophils % 0.0 09/14/18 06:10 Metamyelocytes % 4.0 % 09/14/18 06:10 Myelocytes % 2.0 % 09/14/18 06:10 Absolute Neutrophils 7.34 k/cumm (1.2-6.7) H 09/14/18 06:10 Absolute Lymphocytes 1.51 k/cumm (1.2-3.4) 09/14/18 06:10 Absolute Monocytes 0.60 k/cumm (0.11-0.7) 09/14/18 06:10 Absolute Eosinophils 0.00 k/cumm (0.0-0.7) 09/14/18 06:10 Absolute Basophils 0.00 k/cumm (0.0-0.2) 09/14/18 06:10 Nucleated RBCs 1 /100WBC 09/14/18 06:10 Differential Comment Manual differential 09/14/18 06:10 RBC Morphology See below 09/14/18 06:10 Polychromasia Present 09/14/18 06:10 Anisocytosis 1+ 09/10/18 18:01 Sodium 135 mmol/L (136-145) L 09/14/18 06:10 Potassium 5.0 mmol/L (3.5-5.1) 09/14/18 06:10 Chloride 98 mmol/L (98-107) 09/14/18 06:10 Carbon Dioxide 31.5 mmol/L (21.0-32.0) 09/14/18 06:10 Anion Gap 5.5 mmol/L (3-11) 09/14/18 06:10 BUN 15 mg/dL (7-18) 09/14/18 06:10 Creatinine 0.90 mg/dL (0.55-1.02) 09/14/18 06:10 Estimated GFR/1.73 m2 >= 60.00 (mL/min/1.73m2) 09/14/18 06:10 Glucose 297 mg/dL (70-100) H 09/14/18 06:10 Lactate 1.3 mmol/l (0.6-1.4) 09/10/18 18:50 Calcium 9.3 mg/dL (8.5-10.1) 09/14/18 06:10 Magnesium 1.8 mg/dL (1.8-2.4) 09/14/18 06:10 Total Bilirubin 0.3 mg/dL (0.2-1.0) 09/10/18 18:01 AST 34 U/L (15-37) 09/10/18 18:01 ALT 31 U/L (12-78) 09/10/18 18:01 Alkaline Phosphatase 84 U/L (46-116) 09/10/18 18:01 Troponin I < 0.05 ng/mL (0.00-0.06) 09/10/18 18:01 NT-Pro-B Natriuret Pep 279 pg/mL (-299) 07/06/19 18:01 Total Protein 7.8 g/dL (6.4-8.2) 09/10/18 18:01 Albumin 3.4 g/dL (3.4-5.0) 09/10/18 18:01 Procalcitonin < 0.1 ng/mL 09/11/18 09:30 Vancomycin Trough 17.9 ug/mL (10.0-20.0) 09/14/18 09:45 Ethyl Alcohol < 3.0 mg/dL (<3) 09/10/18 18:01
--- NOTE | 2018-09-14 15:41 | CMPROGNOTE_ITS ---
Care Management Progress Note S/O: Goldie was sitting up in her chair with oxygen on, she remains pleasant in interaction. CM continues to follow. No change to overall plan. A: Goldie is a 58 year old female admitted to [facility] 09/10/18 with COPD Exacerbation P: Goldie continues to require IV antibiotics and respiratory support at this time. She plans to return home with resumption of home health services and oxygen when medically ready. Her community returned case inspector will continue to seek more supportive placement post discharge. Goldie will transport via [facility].
--- NOTE | 2018-09-14 16:02 | PT.INTREAT ---
Date of service: 09/14/18 Time of Service: 16:02 PT Notes Inpatient Physical Therapy Treatment Note [facility] Date: 09/14/2018 PRECAUTIONS: Fall SUBJECTIVE: Goldie states that she feels that she is close to baseline at this point. OBJECTIVE: PAIN: No complaints of pain BED MOBILITY/TRANSFERS Sit-stand: S Stand-sit: S GAIT Assistive Device: 4WW Weight bearing: Full Assist: S Distance: 300' Deviation: SOB NEURO RE-ED: Patient completed a static standing balance re-training program, as per flow sheet. She requires CGA and occasional UE support for safety. ASSESSMENT: Patient tolerated session with complaints of iminimal SOB with activity. Patient was able to tolerate a progression in gait training with 4WW support and supervision. Patient would benefit from continued gait training and general conditioning for improved cardiovascular endurance and activity tolerance. PLAN: Continue with PTs POC TREATMENT CODE/TIME: 30 minutes; [id number], [id number]
[2018-09-14] MEDS: traZODone 100 MG TAB PO (19:22)
[2018-09-14] MEDS: risperiDONE 0.5 MG TAB 1.5 MG PO (19:23)
[2018-09-14] MEDS: Zolpidem 5 MG TAB 10 MG PO (19:23)
[2018-09-14] MEDS: predniSONE 20 MG TAB 40 MG PO (19:23)
[2018-09-14] MEDS: AZITHROMYCIN 250 MG in Normal Saline 250 ML 83 MG IVPB (21:47)
[2018-09-15] VITALS (11 sets, daily range): BP systolic 134–160; BP diastolic 83–107; PULSE 96–111; RESP 4–24; TEMP 35.9–36.9; O2SAT 93–98
[2018-09-15] MEDS: Albuterol/Ipratropium 3 ML UPD VIAL UPD ×4 (00:33→13:38)
[2018-09-15] MEDS: Polyethylene Glycol 3350 17 GM PACKET PO (00:39)
[2018-09-15] MEDS: CEFEPIME 2 GM in Normal Saline 100 ML IVPB ×3 (02:05→15:22)
[2018-09-15] MEDS: Levothyroxine 75 MCG TAB PO (06:17)
[2018-09-15] MEDS: Omeprazole 20 MG CAPCR 40 MG PO (06:18)
[2018-09-15] MEDS: Normal Saline Flush 10 ML SYR IVP ×2 (06:50→13:44)
[2018-09-15] MEDS: Budesonide 0.5 MG/2 ML UPD VIAL UPD (07:47)
[2018-09-15 08:43] LABS: Anion Gap 6.6 mmol/L (3-11); BUN 15 mg/dL (7-18); CO2 33.4 mmol/L (21.0-32.0); CREATININE 0.76 mg/dL (0.55-1.02); Calcium 9.3 mg/dL (8.5-10.1); Chloride 95 mmol/L (98-107); Glucose 220 mg/dL (70-100); Magnesium 1.9 mg/dL (1.8-2.4); Potassium 4.9 mmol/L (3.5-5.1); Sodium 135 mmol/L (136-145)
[2018-09-15 08:45] LABS: Abs Immature Grans 1.22 k/cumm (0.0-0.09); HCT 37.6 % (36.0-46.0); HGB 12.4 g/dL (12.0-15.5); Mean Corpuscular Hemoglobin 31.6 pg (27.0-33.0); Mean Corpuscular Volume 95.9 fL (80-95); Mean Platelet Volume 9.4 fL (8.0-11.0); Platelet Count 239 x1000/uL (130-400); RBC 3.92 m/cumm (4.00-5.20); RBC Distribution Width 14.4 % (11.7-14.6); White Blood Cell Count 11.72 k/cumm (4.4-10.8)
[2018-09-15] MEDS: Docusate Sodium 100 MG CAP PO (09:05)
[2018-09-15] MEDS: Magnesium Oxide 400 MG TAB 800 MG PO (09:06)
[2018-09-15] MEDS: Thiamine 100 MG TAB PO (09:06)
[2018-09-15] MEDS: Multivitamin TAB 1 TAB PO (09:06)
[2018-09-15] MEDS: oxyCODONE 5 MG TAB PO (09:06)
[2018-09-15] MEDS: Benzonatate 100 MG CAP PO ×2 (09:06→13:44)
[2018-09-15] MEDS: predniSONE 20 MG TAB 40 MG PO (09:06)
[2018-09-15] MEDS: buPROPion-XL 150 MG TABCR 300 MG PO (09:07)
[2018-09-15] MEDS: Lisinopril 5 MG TAB PO (09:07)
[2018-09-15] MEDS: guaiFENesin 600 MG TABCR PO (09:07)
[2018-09-15] MEDS: Gabapentin 400 MG CAP PO ×2 (09:07→13:44)
[2018-09-15] MEDS: Folic Acid 1 MG TAB PO (09:07)
[2018-09-15 09:12] LABS: Absolute Lymphocyte Count 1.41 k/cumm (1.2-3.4); Absolute Monocyte Count 0.82 k/cumm (0.11-0.7); Absolute Neutrophil Count 8.56 k/cumm (1.2-6.7); Diff Comment Manual Differential; RBC Morphology Normal
--- NOTE | 2018-09-15 12:17 | PT.INTREAT ---
Date of service: 09/15/18 Time of Service: 12:17 PT Notes Inpatient Physical Therapy Treatment Note [facility] Date: 09/14/2018 PRECAUTIONS: Fall SUBJECTIVE: Goldie states that she feels that she is close to baseline at this point. OBJECTIVE: PAIN: No complaints of pain BED MOBILITY/TRANSFERS Sit-stand: S Stand-sit: S GAIT Assistive Device: 4WW Weight bearing: Full Assist: SBA Distance: 15' x4 Dynamic Neuro Re-ed: Patient performed forward/backward tandem walking with 4WW and SBA 2 x 15' each THEREX: Patient completed a LE strengthening program, in a standing position with UE support, as per flow sheet. NEURO RE-ED: Patient completed a static standing balance re-training program, as per flow sheet. She requires CGA and occasional UE support for safety. ASSESSMENT: Patient tolerated session with minimal complaints of slight SOB with activity. Patient was able to tolerate a progression in balance re-training with 4WW support and CGA/SBA. Patient would benefit from continued gait training and general conditioning for improved cardiovascular endurance and activity tolerance. PLAN: Continue with PTs POC TREATMENT CODE/TIME: 20 minutes; [id number]
--- NOTE | 2018-09-15 14:25 | W.PM.DS.N ---
Date of service: 09/15/18 Time of Service: 14:32 DS: Diagnosis Discharge Diagnosis (1) HCAP (healthcare-associated pneumonia): Status: Acute (2) COPD (chronic obstructive pulmonary disease): Status: Chronic (3) Bipolar disorder: Status: Acute (4) Nicotine dependence with current use: Status: Acute (5) Alcohol abuse: Status: Chronic (6) Left shoulder pain: Status: Acute (7) Hypoxia: Status: Acute Discharge Plan Disposition Patient Disposition: HOME W/HOME HEALTH SERVICE Condition: Improving Discharge Details Chief Complaint: SOB Clinical Impression: Acute exacerbation of chronic obstructive pulmonary disease (COPD), HCAP (healthcare-associated pneumonia), Chronic respiratory failure with hypoxia, on home O2 therapy, Alcohol abuse, daily use Reason For Visit: COPD Admit Date/Time: 09/10/18 19:37 Admit Provider: Tarik Lindo Attending Provider: Tarik Lindo Primary Care Provider: Remy Ortega ED Provider: Lilo Hackett Hospital Course Hospital Course: Goldie is a very pleasant 58 year old female with a past medical history significant for COPD, pulmonary histoiocytosis x, chronic home oxygen at 3 lpm, tobacco abuse, alcohol abuse, anxiety, bipolar disorder who presented to the ED on 09/10/18 with cough and increasing shortness of breath. She had taken 60 mg of prednisone prior to her arrival, she normally takes 10 mg/day. She was afebrile and her labs did not show leukocytosis. She had a chest x-ray in the ED which showed left mid and lower lobe pneumonia. Chest CT showed findings suggestive of acute mild multi-focal pneumonia most prominent involving the lingula. Follow up chest CT suggested following treatment. Due to her recent hospitalization for COPD exacerbation, she was started on treatment for HCAP. She was admitted to the floor for observation and management. She was treated with Vancomycin and cefepime and given IV steroids and updrafts. Her respiratory status improved over the following days. She completed a full 5 day course of antibiotics for hospital acquired pneumonia. At the time of discharge she is stable on 3 lpm oxygen. She has shortness of breath with activity at baseline, no increased shortness of breath. She occasionally feels wheezy, however, she has no wheezing on exam today. She will be discharged home on a slow prednisone taper. She has a history of alcohol abuse. She was monitored on [facility] protocol. She was initially placed on scheduled oxazepam, however, she did not show signs of withdrawal and it was discontinued. She was otherwise maintained on her usual medication regimen. Ms Pa will be discharged home to resume home health RN/PT/OT. She will follow up with her PCP as scheduled. A follow up CT is recommended by radiology. Home Meds and New Rx's Prescriptions: New benzonatate 100 mg Capsule 100 mg PO TID PRNQty: 9 RF: 0 guaifenesin [Mucinex] 600 mg Tablet Extended Release 12hr 600 mg PO BID Qty: 6 RF: 0 prednisone 10 mg tablet 10 mg PO DAILY Qty: 34 RF: 0 Continued albuterol sulfate [ProAir HFA] 8.5 GM HFA aerosol inhaler 2 puff Inhalation Q4H PRN PRNRF: 0 citalopram 40 MG tablet 40 mg PO DAILY RF: 0 risperidone [Risperdal] 1 MG tablet 1.5 mg PO HS RF: 0 omeprazole 20 MG capsule,delayed release(DR/EC) 40 mg PO DAILY RF: 0 trazodone 100 MG tablet 100 mg PO HS PRNRF: 0 zolpidem [Ambien] 5 MG tablet 10 mg PO HS PRN PRNRF: 0 levothyroxine [Synthroid] 75 MCG tablet 75 mcg PO DAILY Qty: 90 RF: 0 polyethylene glycol 3350 17 GM powder in packet 17 gm PO BID PRN PRNRF: 0 magnesium oxide 400 MG tablet 800 mg PO BID Qty: 60 RF: 2 Clemente-Citrate 1 EACH tablet 1 tab PO DAILY RF: 0 Trelegy Ellipta 100-62.5-25 mcg Blister With Device 1 inh INHALATION DAILY RF: 0 cyclobenzaprine 10 mg Tablet 10 mg PO TID PRNRF: 0 oxycodone 5 mg Tablet 5 mg PO HS RF: 0 epinephrine [EpiPen 2-Janes] 0.3 MG/0.3 ML auto-injector 0.3 mg IM PRN PRNRF: 0 ipratropium-albuterol 3 ML solution for nebulization 3 ml UPD Q6H 30 Days Qty: 1 RF: 1 lisinopril 5 mg Tablet 5 mg PO DAILY RF: 0 gabapentin 400 mg Capsule 400 mg PO TID RF: 0 meloxicam 15 mg Tablet 15 mg PO DAILY PRNRF: 0 bupropion HCl 300 mg Tablet Extended Release 24 Hr 300 mg PO QAM RF: 0 Symbicort 160-4.5 mcg/actuation Hfa Aerosol Inhaler 2 puff Inhalation BID Qty: 6 RF: 0 Discontinued ibuprofen 800 MG tablet 800 mg PO TID RF: 0 prednisone 20 mg Tablet 40 mg PO BID Qty: 4 RF: 0 Discharge Instructions Instructions: Hospital Acquired Pneumonia (DC) Additional Instructions: Taper prednisone, take 40 mg (4 tabs) tonight, then 4 tablets per day x3 days, then decrease to 3 tabs x3 days, then 2 tabs x3 days, then decrease to usual dose of 10 mg/day. Follow-up labs next week. Follow up with your PCP as scheduled. Drink plenty of fluids. Continue smoking cessation- especially in the setting of oxygen therapy. Take care! Stand Alone Forms: Nursing Discharge Form Referrals: Remy Ortega [Primary Care Provider] - ([facility] will call you with an appointment) Activity:: Activity as Tolerated Equipment/Supplies:: No Equipment Needed Diet:: As Tolerated Discharge Orders Discharge Orders: Discharge Order (Routine); Ordered 09/15/18 Ordered By: Mariia Gilliland Other Ambulatory Orders: Complete Blood Count No Diff (Routine) Timeframe: 1 Week Facility: [facility] - Location: Laboratory Outpatient Ordered By: Mariia Gilliland Exam Narrative Exam Narrative: General: appears older than stated age, sitting up in the chair in no acute distress. Pleasant and calm, answers questions appropriately. HEENT: normocephalic, atraumatic, pupils equal and round, EOMI, mucous membranes moist. Neck: supple, no JVD. Respiratory: respirations even and unlabored, does not appear short of breath, no wheezes or rhonchi. Cardiovascular: heart has regular rate and rhythm, no murmur appreciated. GI: abdomen soft, nondistended, normoactive bowel sounds, nontender on palpation. Extremities: no clubbing cyanosis or edema. Pedal pulses palpable bilaterally. DS: Data Vitals/I&O Vitals and I&O: Vital Signs Temperature 36.6 C 09/15/18 11:10 Temperature Source Tympanic 09/15/18 11:10 Pulse 111 H 09/15/18 13:38 Pulse Rhythm Regular 09/15/18 08:25 Pulse 123 H 09/10/18 18:00 Respiratory Rate 20 09/15/18 11:10 Respiratory Effort 09/15/18 08:25 Respiratory Depth Normal 09/15/18 08:25 Respiratory Pattern Normal 09/15/18 08:25 Blood Pressure 156/94 H 09/15/18 11:10 Pulse Oximetry 96 09/15/18 13:38 Oxygen Delivery Method Nasal Cannula 09/15/18 13:38 Oxygen Flow Rate 3 09/15/18 13:38 Fraction of Inspired Oxygen (FIO2) 4 09/11/18 15:13 Pain Level 3 09/15/18 11:10 Comment 09/11/18 19:35 Intake & Output 09/14/18 09/15/18 09/15/18 23:59 11:59 23:59 Intake Total 740 / 1900 810 / 1050 240 / 1050 Balance 740 / 1900 810 / 1050 240 / 1050 Intake: IV 500 / 1180 450 / 450 Oral 240 / 720 360 / 600 240 / 600 Other: Urine Appearance Clear Clear Comment using BR independently throughout shift Stool Characteristics Soft Formed Voiding Methods Toilet Completed studies during hospitalization [Text1]: 09/10/18: PORTABLE AP CHEST: 09/11 Examination was compared with today's chest CT. Findings of lingular pneumonia is seen on CT, appear to correspond with an infiltrate at the left lung base. No additional significant findings. CONCLUSION: Findings consistent with lingular pneumonia. Appropriate follow up studies requested. CHEST CT: 09/11 CT examination of the chest was performed with a bolus infusion of 100 cc Omnipaque 350. The examination is compared with previous chest CT of 06/13/2018. There are scattered areas of new ground glass and reticular opacities seen bilaterally, the findings are suggestive of acute pneumonitis most prominent involving the lingula. The tracheobronchial tree appears predominantly intact with some areas of minimal bronchiectasis in the lung bases. Diffuse changes of central lobular emphysema and scarring are noted. No pleural effusion is seen. No significant mediastinal or hilar adenopathy. No gross evidence of pulmonary embolic disease or other major vascular abnormalities seen. Images obtained through the upper abdomen show unremarkable appearance of the visualized portions of liver and spleen. CONCLUSION: Comparison with previous examination of 06/13/18 shows findings suggestive of acute mild multi-focal pneumonia most prominent involving the lingula. Follow up chest CT suggested following treatment. Labs on day of discharge: Labs from last 24 hours 09/15/18 09/15/18 08:25 08:25 WBC 11.72 H RBC 3.92 L Hgb 12.4 Hct 37.6 MCV 95.9 H MCH 31.6 MCHC 33.0 RDW 14.4 Plt Count 239 MPV 9.4 Immature Gran % See Differential Neutrophils % 70.0 Band Neutrophils % 3.0 Lymphocytes % 12.0 Monocytes % 7.0 Eosinophils % 0.0 Basophils % 0.0 Metamyelocytes % 7.0 Myelocytes % 1.0 Absolute Neutrophils 8.56 H Absolute Lymphocytes 1.41 Absolute Monocytes 0.82 H Absolute Eosinophils 0.00 Absolute Basophils 0.00 Differential Comment Manual differential RBC Morphology Normal Sodium 135 L Potassium 4.9 Chloride 95 L Carbon Dioxide 33.4 H Anion Gap 6.6 BUN 15 Creatinine 0.76 Estimated GFR/1.73 m2 >= 60.00 Glucose 220 H D Calcium 9.3 Magnesium 1.9 Preliminary micro results at discharge 09/10/18 19:00 Blood Culture - Preliminary Blood NO GROWTH 96 HOURS 09/10/18 18:50 Blood Culture - Preliminary Blood NO GROWTH 96 HOURS FOR[facility]LY [facility], [facility] Medical History Anxiety disorder (Chronic) Bipolar disorder (Acute) COPD exacerbation (Acute) Hx of hysterectomy (Chronic) Hypothyroidism (acquired) (Acute) Nicotine dependence with current use (Acute) Pulmonary histiocytosis x (Acute) Respiratory failure (Acute) Surgical History History of right shoulder replacement (Acute) Hx of bilateral cataract extraction (Acute) Hx of section (Chronic) Social History Smoking/Tobacco Use Status: Current every day Tobacco Type: cigarettes Tobacco: How many years used: 40 Alcohol Intake: current Alcohol Intake frequency: a few times a week Alcohol type: beer Counseling given: Yes Details: says she is in AA and talks to her sponsor daily, drinking at 9 am @ visit Drug use: Current Sobriety Substance use type: does not use Adopted: Yes Caregiver/Support person: No Foster care: Yes Household members: none Housing: apartment Number of Children: 1 number of grandchildren: 1 Pets and animals: No What is your relationship status?: How often do you get together with friends or relatives?: three or more times per week Panel score (0-1 are the most socially isolated patients): 1 What type of physical activity do you participate in: none Do you feel safe at home: Yes
--- NOTE | 2018-09-15 15:39 | PDOC.CMDIS ---
LACE Index Scoring Tool - Questions: Length of Stay (in days): 4 - 6 Acuity (Admit via E.D.?): Yes Comorbidities: Chronic Pulmonary Disease E.D. Visits: 9 - Answers: Total Score: 13 Risk of Readmission: High Risk Care Management Discharge Reason for Hospitalization: COPD Exacerbation Discharge Plan: Goldie will return home with resumption of home health services and oxygen when medically ready. Her community nurse outreach case manager will continue to seek more supportive placement post discharge. Goldie will transport via [facility]. Patient/Family Education Needs: Review of discharge instructions, discuss Ask Me Three. Services Needed at Discharge: Home Health Care Services (Resumption), Oxygen Therapy
--- NOTE | 2018-09-16 10:27 | INDS_ITS ---
Date of service: 09/15/18 PT Notes Inpatient Physical Therapy Discharge Summary Dates: 09/15/2018 Dates of Service: 09/12/2018 through 09/15/2018 This is a clinical summary of care provided on the duration of dates listed above. No charge was made in the completion of this documentation. Referring Doctor: Cindy De La Garza NP PT Orders: PT CONSULT: Strengthening Precautions: Fall. Standard. Patient Profile/Admitting Diagnosis: Patient is a 58-year-old female with past medical history significant for COPD, Nicotine dependence, anxiety diroder, and respiratory failure who presented to the ED on 09/10/2018 with chief complaints of shortness of breath and cough that has lasted for the past few days. Patient was diagnosed with COPD exacerbation with question of Pneumonia. Physical therapy referral was made in order to address resulting impairments in strength, activity tolerance, and mobility level. PMHX: Medical History Anxiety disorder (Chronic) Respiratory failure (Acute) COPD exacerbation (Acute) Hypothyroidism (acquired) (Acute) Pulmonary histiocytosis x (Acute) Bipolar disorder (Acute) Nicotine dependence with current use (Acute) Hx of hysterectomy (Chronic) Surgical History History of right shoulder replacement (Acute) Hx of bilateral cataract extraction (Acute) Hx of section (Chronic) Social History/Home Situation: Patient lives alone on the 4th floor of an apart ment building on [facility] [facility] [place]. Prior to this admission and to her most recent hospitalization in this hospital two weeks ago, patient had been making her own meals and had been managing her dialy activities alone independently. She came home modified independent with the 4WW for all indoor and outdoor ambulation with home oxygen supplementation at 3L/min via [place]. She was able to walk distance from apartment to [facility] on [address] about 800-1000 feet but at a pace she considers considerably slower than most people. 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 She states that she is currently on a 60-day trial for meals on wheels provision. OT had seen her 3x last week and PT was scheduled to see her this Wednesday. HH nursing came threex last week. Current Functional Limitations: Impaired activity tolerance for all [facility] Equipment Owned/DME: 4WW, SBQC, FWW, W/C, shower bench, portable O2 nasal cannula Subjective: NT Objective: General Observation:NT Mental Status: NT Pain: NT Vital Signs:NT ROM: Right Upper Extremity: Shoulder Flexion WFL. Shoulder abduction WFL. Elbow flexion WFL. Wrist flexion WFL. Functional opening and closing of hand WFL. Left Upper Extremity: Shoulder Flexion about 0-60. Shoulder abduction about 0- 60. Elbow flexion WFL. Wrist flexion WFL. Functional opening and closing of hand WFL. Right Lower Extremity: Hip flexion WFL. Hip abduction WFL. Knee flexion WFL. Ankle dorsiflexion WFL. Ankle plantarflexion WFL. Left Lower Extremity: Hip flexion WFL. Hip abduction WFL. Knee flexion WFL. Ankle dorsiflexion WFL. Ankle plantarflexion WFL. Strength: Right Upper Extremity: Shoulder flexors 4-/5. Shoulder abductors 4-/5. Elbow flexors 4-/5. Elbow extensors 4-/5. Shoe Packer strong. Left Upper Extremity: Shoulder flexors 3-/5. Shoulder abductors 3-/5. Elbow flexors 4-/5. Elbow extensors 4-/5. Shoe Packer strong. Right Lower Extremity: Hip flexors 3+/5. Hip abductors 3=/5. Knee flexors 4-/5. Knee extensors 3+/5. Ankle dorsiflexors 4-/5. Ankle plantarflexors 4-/5. Left Lower Extremity: Hip flexors 3+/5. Hip abductors 3=/5. Knee flexors 4-/5. Knee extensors 3+/5. Ankle dorsiflexors 4-/5. Ankle plantarflexors 4-/5. Sensation: Intact as to pain and pressure on bilateral lower extremities. Bed Mobility/Transfers: Rolling supervision Supine to sit supervision Sit to supine supervision Sit to stand supervision Stand to sit supervision Bed to chair supervision Chair to bed supervision Gait: Patient was able to tolerate in room ambulation of 15 feet x 4 using front wheeled walker with SBA. Oxygen saturation stayed above 90% throughout gait activity with patient report of mildly being fatigued. No remarkable gait deviation noted. Balance: Static Sitting: Normal Dynamic Sitting: Normal Static Standing: Good Dynamic Standing: Fair Assessment: Patient was diagnosed with COPD exacerbation with question of Pneumonia. Patient presents with clinical signs and symptoms consistent with current/admitting diagnoses that have resulted to mobility limitations, gait instability, generalized weakness, and impairment of motor control as demonstrated by the following impairment level findings: 1. Decreased strength to R UE and B LE major muscle groups 2. Impaired standing balance 3. Impaired activity tolerance 4. Limitation of joint range of motion in L shoulder Impairments are contributing to the following functional limitations: 1. Dependent bed mobility skills 2. Increased dependence with transfers 3. Inability to safely ambulate without assistive device and physical assistance 4. Increase completion time for mobility ADL performance 5. Increased fall risk 6. Inability to negotiate steps alone safely Goals: Goals X1 week 1. Supine-Sit independent NOT MET 2. Sit-Supine independent NOT MET 3. Sit-Stand independent NOT MET 4. Stand-Sit independent NOT MET 5. Bed-Chair independent NOT MET 6. Chair-Bed independent NOT MET 7. Independent gait on level surface with use of least restrictive device for at least 300 feet without report of pain nor dyspnea NOT MET 8. Independent with home exercise program NOT MET 9. Good static and dynamic standing balance/tolerance NOT MET DISCHARGE RECOMMENDATIONS: Patient will benefit from home health PT services in order to progress mobility level using least restrictive assistive ambulatory device/using no device, assess home safety, identify additional equipment needs, and establish a functional maintenance program that will increase ability of patient to remain at home. TREATMENT CODE/TIME: SC. Thank you very much for this referral. Emily Egan PT, DPT, CLT [facility]
== END 2018-09-15 16:25 | disposition home health service (06) | DRG 194 ==
LOC: ER 19:13 → MS 20:26
PROVIDERS: Nurse Practitioner Family; Admitting Provider General Practice; Emergency Provider Physician Assistant; PCP Family Medicine; Visit Provider Internal Medicine
DX: J18.1 Lobar pneumonia, unspecified organism (principal); J44.0 Chronic obstructive pulmonary disease with (acute) lower respiratory infection; J96.11 Chronic respiratory failure with hypoxia; Y95 Nosocomial condition; Z99.81 Dependence on supplemental oxygen; F10.10 Alcohol abuse, uncomplicated; F31.9 Bipolar disorder, unspecified; F17.210 Nicotine dependence, cigarettes, uncomplicated; M25.512 Pain in left shoulder
CPT/HCPCS: 36415; 36569; 80048; 80053; 84145; 87040; 93005; 94640; 96361; 96365; 96375; 97110; 97162; 97165; 97530; 97535; 99222; 99232; 99233; 99239; 99285; J1650; 71045; 71260; 80202; 80320; 83605; 83735; 83880; 84484; 85025; 87070; 87205; 93010; J0456; J0696; J2060; J2543; J3470; J3475; J3490; J7512; J7613; J7620; J7626

== ENCOUNTER 2018-09-22 07:59 | Outpatient (CLI) | payer MEDICAID, SELFPAY ==
[2018-09-22 08:20] LABS: HCT 37.9 % (36.0-46.0); HGB 12.6 g/dL (12.0-15.5); Mean Corp. HGB Concentration 33.2 g/dL (32.0-36.0); Mean Corpuscular Hemoglobin 32.2 pg (27.0-33.0); Mean Corpuscular Volume 96.9 fL (80-95); Mean Platelet Volume 9.3 fL (8.0-11.0); Platelet Count 234 x1000/uL (130-400); RBC 3.91 m/cumm (4.00-5.20); RBC Distribution Width 14.9 % (11.7-14.6); White Blood Cell Count 16.96 k/cumm (4.4-10.8)
== END 2018-09-22 08:19 ==
PROVIDERS: PCP Family Medicine; Visit Provider Nurse Practitioner
DX: J18.9 Pneumonia, unspecified organism (principal)
CPT/HCPCS: 36415; 85027

== ENCOUNTER 2018-10-27 11:09 | Emergency (ER) | payer MEDICAID, SELFPAY ==
[2018-10-27 11:15] VITALS: BP 130/74; PULSE 103; RESP 17; TEMP 36.3; O2SAT 97
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
[2018-10-27 11:45] VITALS: PULSE 113; RESP 14; RESP 5; O2SAT 96
[2018-10-27] MEDS: Albuterol/Ipratropium 3 ML UPD VIAL (11:45)
[2018-10-27] MEDS: Normal Saline Flush 10 ML SYR IVP (11:47)
[2018-10-27] MEDS: methylPREDNISolone SUCC 125 MG VIAL IVP (11:47)
[2018-10-27 11:48] LABS: Abs Immature Grans 0.06 k/cumm (0.0-0.09); Absolute Basophil Count 0.03 k/cumm (0.0-0.2); Absolute Eosinophil Count 0.11 k/cumm (0.0-0.7); Absolute Lymphocyte Count 1.25 k/cumm (1.2-3.4); Absolute Monocyte Count 0.91 k/cumm (0.11-0.7); Absolute Neutrophil Count 8.78 k/cumm (1.2-6.7); Basophils % 0.3; HCT 39.8 % (36.0-46.0); HGB 13.7 g/dL (12.0-15.5); Immature Grans % 0.5; Lymphocytes % 11.2; Mean Corp. HGB Concentration 34.4 g/dL (32.0-36.0); Mean Corpuscular Hemoglobin 32.9 pg (27.0-33.0); Mean Corpuscular Volume 95.4 fL (80-95); Mean Platelet Volume 9.4 fL (8.0-11.0); Monocytes % 8.2; Neutrophils % 78.8; Platelet Count 236 x1000/uL (130-400); RBC 4.17 m/cumm (4.00-5.20); RBC Distribution Width 14.7 % (11.7-14.6); White Blood Cell Count 11.14 k/cumm (4.4-10.8)
[2018-10-27 12:02] VITALS: RESP 28
[2018-10-27 12:03] LABS: ALT 23 U/L (12-78); AST 17 U/L (15-37); Albumin 3.9 g/dL (3.4-5.0); Alkaline Phosphatase 79 U/L (46-116); Anion Gap 15.8 mmol/L (3-11); BUN 6 mg/dL (7-18); Bilirubin, Total 0.2 mg/dL (0.2-1.0); CO2 21.2 mmol/L (21.0-32.0); CREATININE 0.86 mg/dL (0.55-1.02); Chloride 99 mmol/L (98-107); Glucose 128 mg/dL (70-100); Magnesium 1.6 mg/dL (1.8-2.4); Potassium 3.5 mmol/L (3.5-5.1); Sodium 136 mmol/L (136-145); Total Protein 7.5 g/dL (6.4-8.2)
[2018-10-27 12:08] LABS: Troponin I < 0.05 ng/mL (0.00-0.06)
--- NOTE | 2018-10-27 12:17 | DI.RAD_ITS ---
SYMPTOM/DIAGNOSIS: SOB, FEVER, COUGH FRONTAL AND LATERAL CHEST: Comparison is made with 09/10/18. Heart size and pulmonary vasculature are within normal limits. The lungs are clear and well expanded. No effusions or pneumothoraces are identified. IMPRESSION: No acute pulmonary process.
[2018-10-27 13:01] LABS: NT-proBNP 56 pg/mL
[2018-10-27] MEDS: Acetaminophen 500 MG TAB 1000 MG PO (13:12)
[2018-10-27] MEDS: Normal Saline 500 ML IV (13:12)
--- NOTE | 2018-10-27 13:50 | NUR.NOTE ---
Nursing Note: pt given soup as requested, set up with tray. OOB to void x 1 with SBG.
== END 2018-10-27 14:59 | disposition home or self-care (01) ==
PROVIDERS: Emergency Provider Physician Assistant; PCP Family Medicine
DX: J44.1 Chronic obstructive pulmonary disease with (acute) exacerbation (principal); R42 Dizziness and giddiness; E86.0 Dehydration; F17.210 Nicotine dependence, cigarettes, uncomplicated; Z99.81 Dependence on supplemental oxygen; J70.5 Respiratory conditions due to smoke inhalation
CPT/HCPCS: 36415; 80053; 93005; 94640; 96361; 96374; 99285; 71046; 83735; 83880; 84484; 85025; 93010; J2930; J7620

== ENCOUNTER 2019-03-28 14:33 | Outpatient (RCR) | payer MEDICAID, SELFPAY | END 2019-04-07 23:59 | disposition home or self-care (01) | LOC: CR 14:33 | PROVIDERS: PCP Family Medicine; Visit Provider Family Medicine | DX: Z51.89 Encounter for other specified aftercare (principal) ==

== ENCOUNTER 2019-04-20 12:52 | Outpatient (RCR) | payer MEDICAID, SELFPAY | END 2019-05-06 23:59 | disposition home or self-care (01) | LOC: PRC 12:52 | PROVIDERS: PCP Family Medicine; Visit Provider Family Medicine | DX: J44.9 Chronic obstructive pulmonary disease, unspecified (principal); Z51.89 Encounter for other specified aftercare ==

== ENCOUNTER 2019-04-29 21:18 | Observation (INO) | payer MEDICAID, SELFPAY ==
[2019-04-29] VITALS (8 sets, daily range): BP systolic 67–140; BP diastolic 41–111; PULSE 86–106; RESP 13–21; TEMP 36.5–36.9; O2SAT 90–97
--- NOTE | 2019-04-29 21:15 | DI.CT_ITS ---
EXAM: CT HEAD WO CLINICAL HISTORY: AMS TECHNIQUE: COMPARISON: CT HEAD CERVICAL SPINE WO from 07/31/2018 FINDINGS: Noncontrast cranial CT was performed. There is mild generalized cerebral atrophy. There is no evide nce of acute intracranial hemorrhage, mass effect, or midline shift. The orbital and temporal bone s tructures appear intact. Paranasal sinuses are well aerated as visualized. IMPRESSION: No evidence of acute intracranial process.
--- NOTE | 2019-04-29 21:15 | DI.RAD_ITS ---
EXAM: XR CHEST 1V IN DI DEPT CLINICAL HISTORY: sob TECHNIQUE: COMPARISON: XR CHEST 2V PA LATERAL from 10/27/2018 FINDINGS: The heart is at the upper limits of normal in size. Mild prominence of pulmonary interstitial markin gs is noted, this appears grossly unchanged from prior studies including 10/27/2018. No focal consol idation. No pleural effusion identified on this AP view. IMPRESSION: No evidence of acute process.
[2019-04-29 21:43] LABS: Abs Immature Grans 0.04 k/cumm (0.0-0.09); Absolute Basophil Count 0.03 k/cumm (0.0-0.2); Absolute Eosinophil Count 0.14 k/cumm (0.0-0.7); Absolute Lymphocyte Count 1.85 k/cumm (1.2-3.4); Absolute Monocyte Count 1.11 k/cumm (0.11-0.7); Absolute Neutrophil Count 7.18 k/cumm (1.2-6.7); Basophils % 0.3; Eosinophils % 1.4; HCT 40.4 % (36.0-46.0); HGB 13.3 g/dL (12.0-15.5); Immature Grans % 0.4 %; Lymphocytes % 17.9; Mean Corp. HGB Concentration 32.9 g/dL (32.0-36.0); Mean Corpuscular Hemoglobin 32.1 pg (27.0-33.0); Mean Corpuscular Volume 97.6 fL (80-95); Mean Platelet Volume 9.6 fL (8.0-11.0); Monocytes % 10.7; Neutrophils % 69.3; Platelet Count 166 x1000/uL (130-400); RBC 4.14 m/cumm (4.00-5.20); RBC Distribution Width 14.2 % (11.7-14.6); White Blood Cell Count 10.35 k/cumm (4.4-10.8)
[2019-04-29 21:58] LABS: PTT Activated 26.7 sec (21.0-31.4); Prothrombin Time 9.8 sec (9.3-11.0)
[2019-04-29 22:04] LABS: ALT 36 U/L (14-59); AST 45 U/L (15-37); Albumin 3.8 g/dL (3.4-5.0); Alkaline Phosphatase 111 U/L (46-116); Anion Gap 18.6 mmol/L (3-11); BUN 11 mg/dL (7-18); Bilirubin, Total 0.3 mg/dL (0.2-1.0); CO2 21.4 mmol/L (21.0-32.0); CREATININE 1.08 mg/dL (0.55-1.02); Calcium 9.5 mg/dL (8.5-10.1); Chloride 98 mmol/L (98-107); ETHANOL BLOOD 156.8 mg/dL (<3); Estimated GFR 52.48 (mL/min/1.73m2); Glucose 104 mg/dL (74-106); Magnesium 2.1 mg/dL (1.8-2.4); Potassium 3.1 mmol/L (3.5-5.1); Sodium 138 mmol/L (136-145); Total Protein 7.8 g/dL (6.4-8.2); Troponin I < 0.05 ng/Ml (<0.06)
[2019-04-29 22:09] LABS: NT-proBNP 113 pg/mL (<300)
[2019-04-29] MEDS: methylPREDNISolone SUCC 125 MG VIAL IVP (22:09)
[2019-04-29] MEDS: Albuterol 2.5 MG/3 ML INH SOLN VIAL UPD (22:10)
--- NOTE | 2019-04-29 22:15 | DI.VRAD_ITS ---
PROCEDURE INFORMATION: Exam: CT Head Without Contrast Exam date and time: 04/29/2019 10:02 PM Age: 58 years old Clinical indication: Altered mental status/memory loss; Patient HX: AMS TECHNIQUE: Imaging protocol: Computed tomography of the head without contrast. Other technique: STROKE PROTOCOL was implemented. COMPARISON: CT HEAD CERVICAL SPINE WO 07/31/2018 11:01 PM FINDINGS: Brain: Age related brain involution is present. No acute intracranial hemorrhage, mass effect, midline shift, or brain herniation. Diffuse subcortical and periventricular white matter hypodensities are most in favor with chronic small vessel disease. Ventricles: Normal. No ventriculomegaly. Bones/joints: Unremarkable. No acute fracture. Sinuses: Visualized sinuses are unremarkable. No fluid levels. Mastoid air cells: Visualized mastoid air cells are well aerated. Orbits: There have been bilateral intraocular lens replacements. Soft tissues: Unremarkable. IMPRESSION: Negative for acute intracranial pathology. ASSESSMENT: ASPECTS ([place] Stroke Program Early CT Score) is 10. Dictated and Authenticated by: Alf Tobias MD. Ordering:ZACK Matamoros MD
--- NOTE | 2019-04-29 22:17 | DI.VRAD_ITS ---
PROCEDURE INFORMATION: Exam: XR Chest, 1 View Exam date and time: 04/29/2019 10:08 PM Age: 58 years old Clinical indication: Shortness of breath; Patient HX: SOB, AMS TECHNIQUE: Imaging protocol: XR of the chest Views: 1 view. COMPARISON: No relevant prior studies available. FINDINGS: Lungs: There is slight prominence to the interstitial markings which is felt to be related to chronic lung changes. No acute interstitial or airspace disease is appreciated. Pleural space: Unremarkable. No pleural effusion. No pneumothorax. Heart/Mediastinum: Unremarkable. No cardiomegaly. Bones/joints: Right shoulder arthroplasty is noted. No acute abnormality or aggressive osseous lesion. IMPRESSION: Negative for acute thoracic pathology. Dictated and Authenticated by: Alf Tobias MD. Ordering:ZACK Matamoros MD
--- NOTE | 2019-04-29 22:24 | NUR.NOTE ---
Kellie Valentedon from home with c/o SOB. Per EMS pt friend called 911 because pt SOB all day, having trouble sitting up, unable to speak d/t SOB and was tripodding per friend. 1 duoneb en route. Pt arrives slumped to left, speech slurred, PERRL, arousable to voice. Following commands. Denies pain. ST on monitor. RA sat 89% Placed on 3L sat to 100%, titrated to 2L, sat 91-93% BP in 70's. NAKITA jimenes. Pt A&Ox3, states she drank [address] and XRay with RN. 1L NS infusing via pressure bag. Neb a/o. Resp in to eval pt with provider. BIPAP/CPAP not needed at this time.
--- NOTE | 2019-04-29 22:30 | NUR.NOTE ---
2 pairs earrings, necklace and life alert button removed and placed in spec cup in pt purse with glasses.
--- NOTE | 2019-04-29 22:30 | W.ED.GENAD ---
Discharge Plan Disposition Patient Disposition: OTHER Condition: Serious Discharge Details Chief Complaint: RespSymp Clinical Impression: Altered mental status, Acute exacerbation of chronic obstructive pulmonary disease (COPD) Primary Care Provider: Remy Ortega ED Provider: Saturnino Potter Home Meds and New Rx's Prescriptions: No Action albuterol sulfate [ProAir HFA] 8.5 GM HFA aerosol inhaler 2 puff Inhalation Q4H PRN PRNRF: 0 citalopram 40 MG tablet 40 mg PO DAILY RF: 0 risperidone [Risperdal] 1 MG tablet 1.5 mg PO HS RF: 0 omeprazole 20 MG capsule,delayed release(DR/EC) 40 mg PO DAILY RF: 0 trazodone 100 MG tablet 100 mg PO HS PRNRF: 0 zolpidem [Ambien] 5 MG tablet 10 mg PO HS PRN PRNRF: 0 levothyroxine [Synthroid] 75 MCG tablet 75 mcg PO DAILY Qty: 90 RF: 0 polyethylene glycol 3350 17 GM powder in packet 17 gm PO BID PRN PRNRF: 0 magnesium oxide 400 MG tablet 800 mg PO BID Qty: 60 RF: 2 Trelegy Ellipta 100-62.5-25 mcg Blister With Device 1 inh INHALATION DAILY RF: 0 cyclobenzaprine 10 mg Tablet 10 mg PO TID PRNRF: 0 benzonatate 100 mg Capsule 100 mg PO TID PRNQty: 9 RF: 0 guaifenesin [Mucinex] 600 mg Tablet Extended Release 12hr 600 mg PO BID Qty: 6 RF: 0 prednisone 10 mg tablet 10 mg PO DAILY Qty: 34 RF: 0 epinephrine [EpiPen 2-Janes] 0.3 MG/0.3 ML auto-injector 0.3 mg IM PRN PRNRF: 0 ipratropium-albuterol 3 ML solution for nebulization 3 ml UPD Q6H 30 Days Qty: 1 RF: 1 lisinopril 5 mg Tablet 5 mg PO DAILY RF: 0 meloxicam 15 mg Tablet 15 mg PO DAILY PRNRF: 0 bupropion HCl 300 mg Tablet Extended Release 24 Hr 300 mg PO QAM RF: 0 budesonide-formoterol [Symbicort] 160-4.5 mcg/actuation Hfa Aerosol Inhaler 2 puff Inhalation BID Qty: 6 RF: 0 oxycodone-acetaminophen [Percocet] 5-325 mg Tablet 1 tab PO BID PRNRF: 0 nicotine (polacrilex) 4 mg Gum 4 mg PO Q30MIN PRNRF: 0 buspirone 15 mg Tablet 15 mg PO BID RF: 0 alprazolam 2 mg Tablet Extended Release 24 Hr 2 mg PO BID RF: 0 calcium carbonate-vitamin D3 [Calcium 500 With D] 500 mg(1,250mg) -400 unit Tablet 1 tab PO DAILY RF: 0 pregabalin [Lyrica] 50 mg Capsule 50 mg PO TID RF: 0 Medical Decision Making 58-year-old female with extensive past medical history presents to the ER today for altered mental status and COPD exacerbation. Altered mental status very well could be related to alcohol, polypharmacy however will obtain stat head CT to rule out acute intracranial process. Patient already received DuoNeb in route, will be given albuterol neb, 125 IV Solu-Medrol, 1 L IV fluid, and obtain a cardiac work-up. Laboratory values reveal alcohol of 156, potassium of 3.1. TSH elevated. Initial pressures here in the ER were in the 140s over 80s however now in the 60s over 40s. She was given a second liter of IV fluid pressures did come up to the 80s over 40s and 50s. Patient falls asleep easily but wakes easily to verbal or tactile stimuli. She is afebrile, white count is normal, low suspicion for acute pneumonia. Antibiotics not initiated. A single dose of 0.4 of Narcan given without any improvement of her symptoms. Patient maintaining airway with 3 L nasal cannula, O2 sats in the low to mid 90s. Patient is no longer in any respiratory distress. Responded well to the 3 L nasal cannula and neb treatments. Emergent ABG was not obtained. Patient is afebrile, chest x-ray clear, blood cultures were not obtained. No clear indication for BiPAP at the moment. Dr. Baptiste was in the room to evaluate patient himself. Work-up in the ER completed, no clear indication for antibiotics. Has received 2 L of IV fluid, a single neb treatment, IV Solu-Medrol. Pressures now appear to be somewhat stable at 80s over 50s, no clear indication for pressors at this time. Patient does wake to verbal stimuli but is rather somnolent. As above, CT imaging and x-ray are unremarkable. Given her age, multiple comorbidities, altered mental status, and COPD exacerbation I do believe that she will benefit from being admitted for observation to our facility for serial neb treatments and reevaluation. This very well may be polypharmacy and alcohol causing her altered mental status. There is no change in her mental status after Narcan was given. Cardiac work-up here in the ER was unremarkable for initial troponin. Patient without pain or swelling in her legs, heart rate is now in the 80s, low suspicion for PE. We will discussed the case with our hospitalist team for admission. Medical Records Medical records reviewed: Yes I reviewed the patient's medical records. Imaging Data Radiologic Study: Attestation: I personally reviewed and interpreted this imaging study as follows: Imaging: X-Ray Radiologist's impression: Negative for acute pathology Radiologic Study #2: Imaging: CT Scan My impression: Chronic COPD changes, no acute infiltrate Lab Data Lab results reviewed: Yes I reviewed the patient's lab results. Lab results narrative: Laboratory Tests Range/Units 04/29/19 04/29/19 04/29/19 21:30 21:30 21:30 WBC (4.4-10.8) k/cumm RBC (4.00-5.20) m/cumm Hgb (12.0-15.5) g/dL Hct (36.0-46.0) % MCV (80-95) fL MCH (27.0-33.0) pg MCHC (32.0-36.0) g/dL RDW (11.7-14.6) % Plt Count (130-400) x1000/uL MPV (8.0-11.0) fL Immature Gran % % Neutrophils % Lymphocytes % Monocytes % Eosinophils % Basophils % Absolute Neutrophils (1.2-6.7) k/cumm Absolute Lymphocytes (1.2-3.4) k/cumm Absolute Monocytes (0.11-0.7) k/cumm Absolute Eosinophils (0.0-0.7) k/cumm Absolute Basophils (0.0-0.2) k/cumm PT (9.3-11.0) sec 9.8 INR (0.9-1.1) 1.0 APTT (21.0-31.4) sec 26.7 Sodium (136-145) mmol/L 138 Potassium (3.5-5.1) mmol/L 3.1 L Chloride (98-107) mmol/L 98 Carbon Dioxide (21.0-32.0) mmol/L 21.4 Anion Gap (3-11) mmol/L 18.6 H BUN (7-18) mg/dL 11 Creatinine (0.55-1.02) mg/dL 1.08 H Estimated GFR/1.73 m2 (mL/min/1.73m2) 52.48 Glucose (74-106) mg/dL 104 Calcium (8.5-10.1) mg/dL 9.5 Magnesium (1.8-2.4) mg/dL 2.1 Total Bilirubin (0.2-1.0) mg/dL 0.3 AST (15-37) U/L 45 H ALT (14-59) U/L 36 Alkaline Phosphatase (46-116) U/L 111 Troponin I (<0.06) ng/Ml < 0.05 NT-Pro-B Natriuret Pep (<300) pg/mL 113 Total Protein (6.4-8.2) g/dL 7.8 Albumin (3.4-5.0) g/dL 3.8 TSH (0.36-3.74) uIU/mL Free T4 (0.76-1.46) ng/dL Ethyl Alcohol (<3) mg/dL 156.8 Range/Units 04/29/19 04/29/19 21:30 21:30 WBC (4.4-10.8) k/cumm 10.35 RBC (4.00-5.20) m/cumm 4.14 Hgb (12.0-15.5) g/dL 13.3 Hct (36.0-46.0) % 40.4 MCV (80-95) fL 97.6 H MCH (27.0-33.0) pg 32.1 MCHC (32.0-36.0) g/dL 32.9 RDW (11.7-14.6) % 14.2 Plt Count (130-400) x1000/uL 166 MPV (8.0-11.0) fL 9.6 Immature Gran % % 0.4 Neutrophils % 69.3 Lymphocytes % 17.9 Monocytes % 10.7 Eosinophils % 1.4 Basophils % 0.3 Absolute Neutrophils (1.2-6.7) k/cumm 7.18 H Absolute Lymphocytes (1.2-3.4) k/cumm 1.85 Absolute Monocytes (0.11-0.7) k/cumm 1.11 H Absolute Eosinophils (0.0-0.7) k/cumm 0.14 Absolute Basophils (0.0-0.2) k/cumm 0.03 PT (9.3-11.0) sec INR (0.9-1.1) APTT (21.0-31.4) sec Sodium (136-145) mmol/L Potassium (3.5-5.1) mmol/L Chloride (98-107) mmol/L Carbon Dioxide (21.0-32.0) mmol/L Anion Gap (3-11) mmol/L BUN (7-18) mg/dL Creatinine (0.55-1.02) mg/dL Estimated GFR/1.73 m2 (mL/min/1.73m2) Glucose (74-106) mg/dL Calcium (8.5-10.1) mg/dL Magnesium (1.8-2.4) mg/dL Total Bilirubin (0.2-1.0) mg/dL AST (15-37) U/L ALT (14-59) U/L Alkaline Phosphatase (46-116) U/L Troponin I (<0.06) ng/Ml NT-Pro-B Natriuret Pep (<300) pg/mL Total Protein (6.4-8.2) g/dL Albumin (3.4-5.0) g/dL TSH (0.36-3.74) uIU/mL 28.92 H Free T4 (0.76-1.46) ng/dL 0.98 Ethyl Alcohol (<3) mg/dL ECG Data Attestation: I personally reviewed and interpreted this ECG (s) as follows: Interpretation: EKG reveals sinus tachycardia, ventricular rate of 107. No acute ST elevation or depression segments. Reviewed with Dr. Baptiste HPI General Mode of arrival: EMS. Date/Time Provider Initiated Documentation: 04/29/19 21:24. Limitations to Documentation: altered mental status. Information obtained by: patient, EMS and old records reviewed. HPI Narrative: 58-year-old female with a significant past medical history of hypokalemia, hypoxia, alcohol abuse, healthcare associated pneumonia, COPD, pneumonitis, respiratory failure, dementia associate with alcoholism, Warnicke Korsakoff syndrome, anxiety, hypothyroidism, pulmonary histiocytosis, bipolar disorder, nicotine dependence, presents via EMS after a friend called as they were concerned for her. Patient is a rather vague and poor historian, tells me she has had a cough for a few days but has no pain now, and not really able to give me much more of a detailed history. EMS tells me that her friends felt as though she was having difficulty breathing, coughing, altered. They had to help hold her up in the chair she could no longer sit herself. They report that when they presented on scene she was moving very little air and her breath sounds are very tight, she required 10 L nonrebreather, and after a DuoNeb only required 3 L. Patient does admit to me that she drank alcohol today, but has been sober for some time. That exact time is unknown. She also reports that she took a couple oxycodone tablets. As above, patient is a very vague and poor historian, is not very forthcoming or helpful during her HPI. It does appear as though she is a DNI. She denies any pain whatsoever. Denies recent illness or trauma. Related Data Home Medications Medication Instructions Recorded Confirmed albuterol sulfate [ProAir HFA] 2 puff INHALATION Q4H PRN PRN 01/01/16 04/29/19 citalopram 40 mg PO DAILY 01/03/16 04/29/19 risperidone [Risperdal] 1.5 mg PO HS 01/03/16 04/29/19 levothyroxine [Synthroid] 75 mcg PO DAILY #90 tab 06/25/16 04/29/19 magnesium oxide 800 mg PO BID #60 tab 06/25/16 10/27/18 polyethylene glycol 3350 17 gm PO BID PRN PRN packet 06/25/16 10/27/18 epinephrine [EpiPen 2-Janes] 0.3 mg IM PRN PRN 07/10/16 04/29/19 omeprazole 40 mg PO DAILY 07/29/16 04/29/19 trazodone 100 mg PO HS PRN 08/04/16 04/29/19 zolpidem [Ambien] 10 mg PO HS PRN PRN 08/04/16 04/29/19 ipratropium-albuterol 3 ml UPD Q6H 30 Days #1 b 05/17/17 10/27/18 Tre[place]isaiah Ellipta 1 inh INHALATION DAILY 08/03/18 04/29/19 lisinopril 5 mg PO DAILY 08/19/18 04/29/19 meloxicam 15 mg PO DAILY PRN 08/19/18 04/29/19 bupropion HCl 300 mg PO QAM 08/20/18 04/29/19 budesonide-formoterol [Symbicort] 2 puff INHALATION BID #6 gm 08/21/18 04/29/19 cyclobenzaprine 10 mg PO TID PRN 09/10/18 04/29/19 benzonatate 100 mg PO TID PRN #9 cap 09/15/18 guaifenesin [Mucinex] 600 mg PO BID #6 tab 09/15/18 prednisone 10 mg PO DAILY #34 tab 09/15/18 04/29/19 alprazolam 2 mg PO BID 04/29/19 04/29/19 buspirone 15 mg PO BID 04/29/19 04/29/19 calcium carbonate-vitamin D3 1 tab PO DAILY 04/29/19 04/29/19 [Calcium 500 With D] nicotine (polacrilex) 4 mg PO Q30MIN PRN 04/29/19 04/29/19 oxycodone-acetaminophen [Percocet] 1 tab PO BID PRN 04/29/19 04/29/19 pregabalin [Lyrica] 50 mg PO TID 04/29/19 04/29/19 Previous Rx's Medication Instructions Recorded levothyroxine [Synthroid] 75 mcg PO DAILY #90 tab 06/25/16 magnesium oxide 800 mg PO BID #60 tab 06/25/16 polyethylene glycol 3350 17 gm PO BID PRN PRN packet 06/25/16 ipratropium-albuterol 3 ml UPD Q6H 30 Days #1 b 05/17/17 budesonide-formoterol [Symbicort] 2 puff INHALATION BID #6 gm 08/21/18 benzonatate 100 mg PO TID PRN #9 cap 09/15/18 guaifenesin [Mucinex] 600 mg PO BID #6 tab 09/15/18 prednisone 10 mg PO DAILY #34 tab 09/15/18 Allergies Allergy/AdvReac Type Severity Reaction Status Date / Time venom-honey bee Allergy Severe Anaphylaxsi Verified 09/01/18 08:51 s General Stated Complaint: RespSymp ADALBERTO: 2 Review of Systems Constitutional Constitutional: Reports fatigue, Denies fever(s), Denies headache(s) and Denies weakness Eyes Eyes: Denies eye discharge ENT Ears, Nose, Mouth, and Throat: Denies headache(s) and Denies sore throat Cardiovascular Cardiovascular: Denies chest pain and Reports dyspnea Respiratory Respiratory: Reports cough, Reports dyspnea and Reports wheezing Gastrointestinal Gastrointestinal: Denies abdominal pain, Denies nausea and Denies vomiting Musculoskeletal Musculoskeletal: Denies myalgias and Denies tingling Integumentary/Breasts Skin/Breast: Denies rash Neurologic Neurologic: Denies headache(s), Denies tingling, Denies paresthesias and Denies weakness Endocrine Endocrine: Reports fatigue Allergic/Immunologic Allergic/Immunologic: Reports wheezing [facility] Medical History Anxiety disorder (Chronic) Bipolar disorder (Acute) COPD exacerbation (Acute) Hypothyroidism (acquired) (Acute) Nicotine dependence with current use (Chronic) Pulmonary histiocytosis x (Acute) Respiratory failure (Acute) Surgical History History of right shoulder replacement (Acute) Dr. Dee at [facility]. 5-6 years ago per pt. Hx of bilateral cataract extraction (Acute) [address] Santos. Hx of section (Chronic) x 2. Hx of hysterectomy (Chronic) 10 yrs ago, done in [place] per pt. Social History Smoking/Tobacco Use Status: Current every day Tobacco Type: cigarettes Tobacco: How many years used: 40 Alcohol Intake: current Alcohol Intake frequency: a few times a week Alcohol type: beer Counseling given: Yes Details: says she is in AA and talks to her sponsor daily, drinking at 9 am @ visit Drug use: Current Sobriety Substance use type: does not use Adopted: Yes Caregiver/Support person: No Foster care: Yes Household members: none Housing: apartment Number of Children: 1 number of grandchildren: 1 Pets and animals: No What is your relationship status?: How often do you get together with friends or relatives?: three or more times per week Panel score (0-1 are the most socially isolated patients): 1 What type of physical activity do you participate in: none Do you feel safe at home: Yes Do you feel safe in your relationship?: Yes Exam Const General: in distress mild and respiratory and disheveled Nutritional Appearance: obese Orientation: alert, oriented to person, oriented to place and confused Limitations: altered mental status HENPA Head: normal to inspection, no palpable skull fracture, normocephalic and atraumatic Ears: external ears normal Mouth: mucous membranes dry and oral mucosa abnormal other (dry) Throat: posterior oropharynx normal Eyes Eyelids: eyelids normal Conjunctivae: conjunctivae normal Sclera: sclerae normal Pupils: PERRL EOM: EOM intact bilaterally Neck Neck: normal visual inspection, full ROM, no lymphadenopathy, no meningeal signs, trachea midline and supple Resp Effort & Inspection: audible wheezes and cough Quality of cough: dry Auscultation: diminished lung sounds bilaterally throughout and wheezes expiratory wheezes (Throughout) Cardio Rate: tachycardic (Sinus tachycardia, rate of 108) Pulses: normal peripheral pulses GI Inspection: normal to inspection Palpation: soft, not firm, no guarding, not rigid and nontender Back/Spine/Pelvis Back: No back tenderness Skin General skin exam: no rashes or lesions noted Neuro General: oriented Patient Orientation: Person, Place and Confused, moves all extremities, no focal motor deficits, CN's II-XI intact bilaterally, confused and other (Patient leans her upper body to the left) Cranial Nerves: CN's II-XI intact bilaterally Speech: abnormal speech slurred Motor: muscle tone normal throughout Sensory Exam: no sensory deficits noted Extrem General: normal to inspection Psych Appearance: grossly normal Mental Status: mental status grossly normal Course Vital Signs Vital signs: Vital Signs Temperature 36.9 C 04/29/19 21:18 Pulse 106 H 04/29/19 21:18 Respiratory Rate 04/29/19 21:18 Blood Pressure 140/111 H 04/29/19 21:18 Pulse Oximetry 91 L 04/29/19 21:18 Temperature 36.9 C 04/29/19 21:18 Temperature Source Skin 04/29/19 21:18 Pulse 96 H 04/29/19 22:09 Respiratory Rate 20 04/29/19 22:09 Respiratory Effort Incrsd Work of Breathing 04/29/19 22:22 Blood Pressure 72/53 L 04/29/19 22:09 Blood Pressure Position Supine 04/29/19 21:18 Pulse Oximetry 91 L 04/29/19 22:09 Oxygen Delivery Method Nasal Cannula 04/29/19 22:09 Oxygen Flow Rate 2 04/29/19 22:09 Lab/Test Results Lab/Test Results: Laboratory Tests Range/Units 04/29/19 04/29/19 04/29/19 21:30 21:30 21:30 WBC (4.4-10.8) k/cumm RBC (4.00-5.20) m/cumm Hgb (12.0-15.5) g/dL Hct (36.0-46.0) % MCV (80-95) fL MCH (27.0-33.0) pg MCHC (32.0-36.0) g/dL RDW (11.7-14.6) % Plt Count (130-400) x1000/uL MPV (8.0-11.0) fL Immature Gran % % Neutrophils % Lymphocytes % Monocytes % Eosinophils % Basophils % Absolute Neutrophils (1.2-6.7) k/cumm Absolute Lymphocytes (1.2-3.4) k/cumm Absolute Monocytes (0.11-0.7) k/cumm Absolute Eosinophils (0.0-0.7) k/cumm Absolute Basophils (0.0-0.2) k/cumm PT (9.3-11.0) sec 9.8 INR (0.9-1.1) 1.0 APTT (21.0-31.4) sec 26.7 Sodium (136-145) mmol/L 138 Potassium (3.5-5.1) mmol/L 3.1 L Chloride (98-107) mmol/L 98 Carbon Dioxide (21.0-32.0) mmol/L 21.4 Anion Gap (3-11) mmol/L 18.6 H BUN (7-18) mg/dL 11 Creatinine (0.55-1.02) mg/dL 1.08 H Estimated GFR/1.73 m2 (mL/min/1.73m2) 52.48 Glucose (74-106) mg/dL 104 Calcium (8.5-10.1) mg/dL 9.5 Magnesium (1.8-2.4) mg/dL 2.1 Total Bilirubin (0.2-1.0) mg/dL 0.3 AST (15-37) U/L 45 H ALT (14-59) U/L 36 Alkaline Phosphatase (46-116) U/L 111 Troponin I (<0.06) ng/Ml < 0.05 NT-Pro-B Natriuret Pep (<300) pg/mL 113 Total Protein (6.4-8.2) g/dL 7.8 Albumin (3.4-5.0) g/dL 3.8 Ethyl Alcohol (<3) mg/dL 156.8 Range/Units 04/29/19 21:30 WBC (4.4-10.8) k/cumm 10.35 RBC (4.00-5.20) m/cumm 4.14 Hgb (12.0-15.5) g/dL 13.3 Hct (36.0-46.0) % 40.4 MCV (80-95) fL 97.6 H MCH (27.0-33.0) pg 32.1 MCHC (32.0-36.0) g/dL 32.9 RDW (11.7-14.6) % 14.2 Plt Count (130-400) x1000/uL 166 MPV (8.0-11.0) fL 9.6 Immature Gran % % 0.4 Neutrophils % 69.3 Lymphocytes % 17.9 Monocytes % 10.7 Eosinophils % 1.4 Basophils % 0.3 Absolute Neutrophils (1.2-6.7) k/cumm 7.18 H Absolute Lymphocytes (1.2-3.4) k/cumm 1.85 Absolute Monocytes (0.11-0.7) k/cumm 1.11 H Absolute Eosinophils (0.0-0.7) k/cumm 0.14 Absolute Basophils (0.0-0.2) k/cumm 0.03 PT (9.3-11.0) sec INR (0.9-1.1) APTT (21.0-31.4) sec Sodium (136-145) mmol/L Potassium (3.5-5.1) mmol/L Chloride (98-107) mmol/L Carbon Dioxide (21.0-32.0) mmol/L Anion Gap (3-11) mmol/L BUN (7-18) mg/dL Creatinine (0.55-1.02) mg/dL Estimated GFR/1.73 m2 (mL/min/1.73m2) Glucose (74-106) mg/dL Calcium (8.5-10.1) mg/dL Magnesium (1.8-2.4) mg/dL Total Bilirubin (0.2-1.0) mg/dL AST (15-37) U/L ALT (14-59) U/L Alkaline Phosphatase (46-116) U/L Troponin I (<0.06) ng/Ml NT-Pro-B Natriuret Pep (<300) pg/mL Total Protein (6.4-8.2) g/dL Albumin (3.4-5.0) g/dL Ethyl Alcohol (<3) mg/dL
[2019-04-29] MEDS: Normal Saline 1,000 ML 1000 ML IV ×2 (22:39→23:20)
[2019-04-29 22:40] LABS: TSH (W/Ref FT4) 28.92 uIU/mL (0.36-3.74)
[2019-04-29] MEDS: Naloxone 0.4 MG/ML VIAL IVP (22:40)
--- NOTE | 2019-04-29 22:45 | W.PM.HP.N ---
Date of service: 04/29/19 Time of Service: 22:45 Assessment and Plan Assessment and plan (1) Altered mental status associated with intoxication: Start date: 04/29/19 Status: Acute Assessment and plan: This is a 58-year-old lady who has had several day history of increasing green sputum with blowing her nose and cough with persistent darker green sputum. Chronic smoker. She had increased respiratory distress and increased somnolence prior to admission which may have been secondary to worsening respiratory symptoms and polypharmacy sedation. Did not appear to be pure narcotic sedation. She did not respond to Narcan. She had no indication for IV antibiotics upon admission but with review of her history and probable sinusitis with recent URI symptoms she will be started on Augmentin. She did respond to nebulizer treatments and support overnight with oxygen. She was hypoxic upon admission in the field with EMS. She responded well to nebulizers in the field. She has been hospitalized in the past requiring BiPAP and she is a DNI. She did not require any respiratory support other than oxygen supplement. She will be observed and converted to oral therapy if she improves over the next 24 to 48 hours. She will be assessed for home oxygen if she is not on oxygen chronically. She is to stop smoking and should not drink alcohol with her multiple medications. (2) Hypoxia: Start date: 04/29/19 Status: Acute Assessment and plan: Associated with respiratory symptoms and increased bronchospasm. She responded well to nebulizers and will continue on O2 supplementation be evaluated for home O2. (3) COPD exacerbation: Start date: 04/29/19 Status: Acute Assessment and plan: Acutely exacerbated in a smoker with probable URI and sinusitis. Aggressive nebulizer treatments and IV Solu-Medrol to be weaned to oral prednisone which appears she has had done multiple times in the past. (4) Hypokalemia: Start date: 04/29/19 Status: Acute Assessment and plan: Patient does not appear to be on diuretics chronically and this may be nutritional. IV hydration with potassium supplement be adjusted to morning labs. (5) Sinusitis, acute: Start date: 04/29/19 Status: Acute Assessment and plan: Maxillary sinusitis by history. Start Augmentin for 10-day course and this can be taken as an outpatient. Qualifiers: Recurrence: not specified as recurrent Sinusitis location: maxillary Qualified Code(s): J01.00 - Acute maxillary sinusitis, unspecified (6) Alcohol abuse: Status: Chronic Assessment and plan: Patient advised to stop alcohol chronically with her multiple meds but this will be an ongoing discussion as an outpatient. (7) Nicotine dependence with current use: Status: Chronic Assessment and plan: Longer the patient should stop smoking tobacco. This can be discussed as an outpatient. (8) Hypothyroidism (acquired): Status: Chronic Assessment and plan: Patient's TSH tends to run high and appears to be even more elevated upon this admission. Compliance needs to be reviewed before adjusting medical therapy. This will be done as an outpatient long-term. I doubt this is contributing to her acute sedation or change in mental status. Free T4 is normal and has been low normal with recent measurements with a slightly elevated TSH. History of Present Illness History of Present Illness Chief Complaint: Difficulty breathing with hypoxemia and changed mentation. Narrative: This is a 58-year-old chronic smoker who has COPD presenting to the ED with difficulty breathing and very tight in the field by EMS with patient receiving respiratory findings nebulizer treatment and improving with hypoxemia being severe requiring 10 L/min nasal cannula in the field and decreased to 3 L/min after treatment. EMS was called by a friend of the patient who thought that she was having difficulty breathing and not acting herself. The patient states that she has been not herself for several days with change in sputum and blowing her nose with green sputum and mucus with the patient having sinus pressure and sinus pain. Her sputum chronically has a change in color with her smoking daily. She states that she does drink alcohol most days and did drink the night of admission. She denies any fever or chest pain. She has had no peripheral edema and no risk for thromboembolic phenomena. Imaging was negative with arterial blood gases not performed and CT of the chest not performed with no indications. Cardiac work-up was negative in the ED. She did admit to taking a couple of her oxycodone and does have multiple sedating medications on her medication list. She did not respond to Narcan in the ED indicating that this was not oversedation from narcotics alone but probably polypharmacy with alcohol. She did not require BiPAP and awaken slowly over the night. Review of Systems Narrative: 13 point review of systems otherwise unrevealing or stable. Patient does not present as toxic as she has been in the past with her chronic alcoholism and severe COPD. She is a DNI. [facility] Medical History Anxiety disorder (Chronic) Bipolar disorder (Acute) COPD exacerbation (Acute) Hypothyroidism (acquired) (Acute) Nicotine dependence with current use (Chronic) Pulmonary histiocytosis x (Acute) Respiratory failure (Acute) Surgical History History of right shoulder replacement (Acute) Dr. Dee at [facility]. 5-6 years ago per pt. Hx of bilateral cataract extraction (Acute) 2 [address] pt[address] Santos. Hx of section (Chronic) x 2. Hx of hysterectomy (Chronic) 10 yrs ago, done in [place] per pt. Social History Smoking/Tobacco Use Status: Current every day Tobacco Type: cigarettes Tobacco: How many years used: 40 Alcohol Intake: current Alcohol Intake frequency: a few times a week Alcohol type: beer Counseling given: Yes Details: says she is in AA and talks to her sponsor daily, drinking at 9 am @ visit Drug use: Current Sobriety Substance use type: does not use Adopted: Yes Caregiver/Support person: No Foster care: Yes Household members: none Housing: apartment Number of Children: 1 number of grandchildren: 1 Pets and animals: No What is your relationship status?: How often do you get together with friends or relatives?: three or more times per week Panel score (0-1 are the most socially isolated patients): 1 What type of physical activity do you participate in: none Do you feel safe at home: Yes Do you feel safe in your relationship?: Yes Meds Home Medications and Allergies Home Medications Medication Instructions Recorded Confirmed Type albuterol sulfate [ProAir HFA] 2 puff INHALATION Q4H PRN PRN 01/01/16 04/29/19 History citalopram 40 mg PO DAILY 01/03/16 04/29/19 History risperidone [Risperdal] 1.5 mg PO HS 01/03/16 04/29/19 History levothyroxine [Synthroid] 75 mcg PO DAILY #90 tab 06/25/16 04/29/19 Rx magnesium oxide 800 mg PO BID #60 tab 06/25/16 10/27/18 Rx polyethylene glycol 3350 17 gm PO BID PRN PRN packet 06/25/16 10/27/18 Rx epinephrine [EpiPen 2-Janes] 0.3 mg IM PRN PRN 07/10/16 04/29/19 History omeprazole 40 mg PO DAILY 07/29/16 04/29/19 History trazodone 100 mg PO HS PRN 08/04/16 04/29/19 History zolpidem [Ambien] 10 mg PO HS PRN PRN 08/04/16 04/29/19 History ipratropium-albuterol 3 ml UPD Q6H 30 Days #1 b 05/17/17 10/27/18 Rx Trelegy Ellipta 1 inh INHALATION DAILY 08/03/18 04/29/19 History lisinopril 5 mg PO DAILY 08/19/18 04/29/19 History meloxicam 15 mg PO DAILY PRN 08/19/18 04/29/19 History bupropion HCl 300 mg PO QAM 08/20/18 04/29/19 History budesonide-formoterol [Symbicort] 2 puff INHALATION BID #6 gm 08/21/18 04/29/19 Rx cyclobenzaprine 10 mg PO TID PRN 09/10/18 04/29/19 History benzonatate 100 mg PO TID PRN #9 cap 09/15/18 Rx guaifenesin [Mucinex] 600 mg PO BID #6 tab 09/15/18 Rx prednisone 10 mg PO DAILY #34 tab 09/15/18 04/29/19 Rx alprazolam 2 mg PO BID 04/29/19 04/29/19 History buspirone 15 mg PO BID 04/29/19 04/29/19 History calcium carbonate-vitamin D3 1 tab PO DAILY 04/29/19 04/29/19 History [Calcium 500 With D] nicotine (polacrilex) 4 mg PO Q30MIN PRN 04/29/19 04/29/19 History oxycodone-acetaminophen [Percocet] 1 tab PO BID PRN 04/29/19 04/29/19 History pregabalin [Lyrica] 50 mg PO TID 04/29/19 04/29/19 History Allergies Allergy/AdvReac Type Severity Reaction Status Date / Time venom-honey bee Allergy Severe Anaphylaxsi Verified 09/01/18 08:51 s Exam Narrative Exam Narrative: General: Patient is obese and somnolent though easily aroused. She is a poor and vague historian. She appears alert and oriented at least to person and place. She is in no acute distress. HEENT: Normocephalic with ears revealing tympanic membranes normal bilaterally with increased cerumen in the left EAC. Sinuses are slightly tender over the maxillary sinuses. Eyes with pupils equal and react to light symmetrically with extraocular movement intact and sclera anicteric. Oropharynx with dry oral mucosa and nonerythematous pharynx. No exudates. Neck: Supple without JVD. Lungs: Poor aeration of the right more than left with increased expiratory phase and diffuse expiratory wheeze especially with cough. No focalizing rales or rhonchi. No inspiratory intercostal retractions. Back: Kyphotic with no CVA tenderness. Breast: Exam deferred. Heart: Borderline tachycardic with regular rhythm and rate, no murmurs or gallops appreciated. Abdomen: Obese contour, soft and nontender to palpation with no palpable hepatosplenomegaly. Genitalia/Rectal: Exam deferred. Extremities: Without clubbing, cyanosis or pitting edema. No joint swelling with fair range of motion of joints. Skin: Pale, warm and dry. Neuro: Cranial nerves II through XII grossly intact, motor and sensory grossly intact. No focalizing findings. Patient was somnolent when first admitted but slowly awakening through the night. Psych: Patient appears to have normal thought processes, remote and recent memory grossly intact. Affect appears flattened with mood depressed. Results Imaging Imaging Studies: Exam: XR Chest, 1 View Exam date and time: 04/29/2019 10:08 PM Age: 58 years old Clinical indication: Shortness of breath; Patient HX: SOB, AMS TECHNIQUE: Imaging protocol: XR of the chest Views: 1 view. COMPARISON: No relevant prior studies available. FINDINGS: Lungs: There is slight prominence to the interstitial markings which is felt to be related to chronic lung changes. No acute interstitial or airspace disease is appreciated. Pleural space: Unremarkable. No pleural effusion. No pneumothorax. Heart/Mediastinum: Unremarkable. No cardiomegaly. Bones/joints: Right shoulder arthroplasty is noted. No acute abnormality or aggressive osseous lesion. IMPRESSION: Negative for acute thoracic pathology. Dictated and Authenticated by: Alf Tobias MD. Exam: CT Head Without Contrast Exam date and time: 04/29/2019 10:02 PM Age: 58 years old Clinical indication: Altered mental status/memory loss; Patient HX: AMS TECHNIQUE: Imaging protocol: Computed tomography of the head without contrast. Other technique: STROKE PROTOCOL was implemented. COMPARISON: CT HEAD CERVICAL SPINE WO 07/31/2018 11:01 PM FINDINGS: Brain: Age related brain involution is present. No acute intracranial hemorrhage, mass effect, midline shift, or brain herniation. Diffuse subcortical and periventricular white matter hypodensities are most in favor with chronic small vessel disease. Ventricles: Normal. No ventriculomegaly. Bones/joints: Unremarkable. No acute fracture. Sinuses: Visualized sinuses are unremarkable. No fluid levels. Mastoid air cells: Visualized mastoid air cells are well aerated. Orbits: There have been bilateral intraocular lens replacements. Soft tissues: Unremarkable. IMPRESSION: Negative for acute intracranial pathology. ASSESSMENT: ASPECTS (Josselin Stroke Program Early CT Score) is 10. Dictated and Authenticated by: Alf Tobias MD. Labs Result diagrams: 04/30/19 05:58 04/30/19 06:04 Labs: Laboratory Results - last 24 hr 04/29/19 04/29/19 04/29/19 21:30 21:30 21:30 WBC RBC Hgb Hct MCV MCH MCHC RDW Plt Count MPV Immature Gran % Neutrophils % Lymphocytes % Monocytes % Eosinophils % Basophils % Absolute Neutrophils Absolute Lymphocytes Absolute Monocytes Absolute Eosinophils Absolute Basophils PT 9.8 INR 1.0 APTT 26.7 Sodium 138 Potassium 3.1 L Chloride 98 Carbon Dioxide 21.4 Anion Gap 18.6 H BUN 11 Creatinine 1.08 H Estimated GFR/1.73 m2 52.48 Glucose 104 Calcium 9.5 Magnesium 2.1 Total Bilirubin 0.3 AST 45 H ALT 36 Alkaline Phosphatase 111 Troponin I < 0.05 NT-Pro-B Natriuret Pep 113 Total Protein 7.8 Albumin 3.8 TSH Ethyl Alcohol 156.8 04/29/19 04/29/19 21:30 21:30 WBC 10.35 RBC 4.14 Hgb 13.3 Hct 40.4 MCV 97.6 H MCH 32.1 MCHC 32.9 RDW 14.2 Plt Count 166 MPV 9.6 Immature Gran % 0.4 Neutrophils % 69.3 Lymphocytes % 17.9 Monocytes % 10.7 Eosinophils % 1.4 Basophils % 0.3 Absolute Neutrophils 7.18 H Absolute Lymphocytes 1.85 Absolute Monocytes 1.11 H Absolute Eosinophils 0.14 Absolute Basophils 0.03 PT INR APTT Sodium Potassium Chloride Carbon Dioxide Anion Gap BUN Creatinine Estimated GFR/1.73 m2 Glucose Calcium Magnesium Total Bilirubin AST ALT Alkaline Phosphatase Troponin I NT-Pro-B Natriuret Pep Total Protein Albumin TSH 28.92 H Ethyl Alcohol Last Vital Signs Temp 36.9 C 04/29/19 21:18 Pulse 96 H 04/29/19 22:09 Resp 20 04/29/19 22:09 BP 72/53 L 04/29/19 22:09 Pulse Ox 91 L 04/29/19 22:09
[2019-04-29 22:58] LABS: FREE T4 0.98 ng/dL (0.76-1.46)
[2019-04-29 23:39] LABS: Bilirubin Negative (Negative); Blood Negative (Negative); Clarity Clear (Clear); Glucose Negative (Negative); Ketones Negative (Negative); Leukocyte Esterase Negative (Negative); Nitrite Negative (Negative); Specific Gravity 1.015 (1.005-1.025); Urobilinogen 0.2 EU/dL (Up TO 0.2)
--- NOTE | 2019-04-29 23:46 | NUR.NOTE ---
inct of urine, inct care provided. Straight cath for approx 200mL yellow urine. pt raul well. 2nd liter NS infusing. eport to Mikaela on med/surg. BP low, ? need for ICU. awaiting call back.
--- NOTE | 2019-04-29 23:48 | NUR.NOTE ---
Home med list done using med clam history. Pt too drowsy to list meds.
[2019-04-29 23:49] LABS: *AMPHETAMINES SCREEN URINE Negative (Negative); *BARBITURATES SCREEN URINE Negative (Negative); *BENZODIAZEPINES SCREEN URINE POSITIVE (Negative); Cannabinoids THC POSITIVE (Negative); Cocaine Screen,Urine Negative (Negative); METHADONE URINE SCREEN Negative (Negative); OPIATES URINE SCREEN Negative (Negative)
[2019-04-29 23:52] LABS: Tricyclic Antidepressants POSITIVE (Negative)
[2019-04-30] VITALS (26 sets, daily range): BP systolic 98–155; BP diastolic 53–92; PULSE 85–112; RESP 13–28; TEMP 36.5–37.2; O2SAT 91–98
[2019-04-30 00:51] LABS: Troponin I < 0.05 ng/Ml (<0.06)
[2019-04-30] MEDS: POTASSIUM CHLORIDE/0.9% NACL 1,000 ML 100 MEQ IV (01:23)
[2019-04-30] MEDS: Omeprazole 20 MG CAPCR 40 MG PO (06:56)
[2019-04-30] MEDS: Albuterol/Ipratropium 3 ML UPD VIAL UPD (06:56)
[2019-04-30] MEDS: methylPREDNISolone SUCC 125 MG VIAL 80 MG IVP (06:56)
[2019-04-30] MEDS: Enoxaparin 40 MG/0.4 ML SYR SC (06:56)
[2019-04-30 07:01] LABS: HCT 34.8 % (36.0-46.0); HGB 11.2 g/dL (12.0-15.5); Mean Corp. HGB Concentration 32.2 g/dL (32.0-36.0); Mean Corpuscular Hemoglobin 31.4 pg (27.0-33.0); Mean Corpuscular Volume 97.5 fL (80-95); Mean Platelet Volume 10.2 fL (8.0-11.0); Platelet Count 143 x1000/uL (130-400); RBC 3.57 m/cumm (4.00-5.20); White Blood Cell Count 4.92 k/cumm (4.4-10.8)
[2019-04-30 07:18] LABS: ALT 27 U/L (14-59); AST 34 U/L (15-37); Albumin 2.7 g/dL (3.4-5.0); Alkaline Phosphatase 87 U/L (46-116); Anion Gap 12.2 mmol/L (3-11); BUN 10 mg/dL (7-18); Bilirubin, Total 0.2 mg/dL (0.2-1.0); CO2 21.8 mmol/L (21.0-32.0); CREATININE 0.89 mg/dL (0.55-1.02); Calcium 7.6 mg/dL (8.5-10.1); Chloride 109 mmol/L (98-107); Glucose 149 mg/dL (74-106); Potassium 4.4 mmol/L (3.5-5.1); Sodium 143 mmol/L (136-145); Total Protein 6.1 g/dL (6.4-8.2)
[2019-04-30 07:32] LABS: PHOSPHORUS 3.9 mg/dL (2.6-4.7)
[2019-04-30] MEDS: Amoxicillin 875/Clav. 125 TAB PO (07:55)
[2019-04-30] MEDS: Magnesium Oxide 400 MG TAB 800 MG PO (07:56)
[2019-04-30] MEDS: Citalopram 20 MG TAB 40 MG PO (07:56)
[2019-04-30] MEDS: M 1 TAB PO (07:56)
[2019-04-30] MEDS: buPROPion-XL 150 MG TABCR 300 MG PO (07:56)
[2019-04-30] MEDS: Levothyroxine 75 MCG TAB PO (07:56)
[2019-04-30] MEDS: Thiamine 100 MG TAB PO (07:58)
[2019-04-30] MEDS: Multivitamin TAB 1 TAB PO (07:58)
[2019-04-30] MEDS: Folic Acid 1 MG TAB PO (07:58)
[2019-04-30] MEDS: Lisinopril 5 MG TAB PO (07:58)
--- NOTE | 2019-04-30 08:24 | INITIAL_ITS ---
- If Service Date Differs Date of service: 04/30/19 Time of Service: 08:24 Care Management Initial Assess REASON FOR HOSPITALIZATION:: AMS with intoxication PAST MEDICAL HISTORY/PAST SURGICAL HISTORY:: Medical History : Anxiety disorder (Chronic). Bipolar disorder (Acute). COPD exacerbation (Acute). Hypothyroidism (acquired) (Acute). Nicotine dependence with current use (Chronic). Pulmonary histiocytosis x (Acute). Respiratory failure (Acute). [facility] rgical History : History of right shoulder replacement (Acute). Dr. Dee at [facility]. 5-6 years ago per pt. Hx of bilateral cataract extraction (Acute). 2 years ago [address] pt. Dr. Santos. Hx of section (Chronic). x 2. Hx of hysterectomy (Chronic). 10 yrs ago, done in [place] per pt. PREVIOUS FUNCTIONAL STATUS/SOCIAL/FAMILY SUPPORTS:: Goldie lives alone in a 4th floor efficiency apartment in [facility]. The building has an elevator, so stair climbing is not required. 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 She states she has a strong support system of family and friends. She is independent with ADLs but states she might need a little help when she goes home. She uses a quad cane and sometimes a walker or wheelchair if she goes to the store. Goldie shared that she also sees Lorena Lindsey ([facility]) twice a week for mental health counseling. CURRENT FUNCTIONAL STATUS:: Goldie was sitting on the edge of the bed when CM met with her. She stated that she was feeling a lot better and was being discharged. She did not feel that she needed any additional services at home. A friend was going to transport her home. ADVANCE DIRECTIVES:: none on file Has patient been provided with information about the portal?: Yes Did the patient sign up for the portal?: No CODE STATUS:: DNI INSURANCE COVERAGE / FINANCIAL ISSUES:: Medicaid CURRENT HOME/COMMUNITY SERVICES/EQUIPMENT:: Goldie has home oxygen at 3L continuously. She uses bipap for sleep and also has a nebulizer. She has a quad cane and a walker. She has just been approved for [employer]. PRIMARY CARE PHYSICIAN:: Remy Elizalde POTENTIAL DISCHARGE NEEDS:: Follow up with PCP and dischasrge plan of care PATIENT/FAMILY EDUCATION NEEDS:: Discharge plan, limitations, follow up plan, Ask Me Three. TRANSPORTATION:: via private vehicle with friends PLAN:: Goldie will discharge home with no additional services. She will transport via private vehicle with a friend and follow up with her PCP.
--- NOTE | 2019-04-30 08:34 | W.PM.PROGNOT ---
Subjective Subjective Interval history since last seen: Afebrile; yellow sputum. No SOB. Wheezy/tight. On home O2 at 3L. On 3L here - O2 sats 93%. A&Ox3, awake. No signs of EtOH. Objective Objective Clinical Data: Abnormal lab results 04/29/19 04/29/19 04/29/19 Range/Units 21:30 21:30 21:30 RBC (4.00-5.20) m/cumm Hgb (12.0-15.5) g/dL Hct (36.0-46.0) % MCV 97.6 H (80-95) fL Absolute Neutrophils 7.18 H (1.2-6.7) k/cumm Absolute Monocytes 1.11 H (0.11-0.7) k/cumm Potassium 3.1 L (3.5-5.1) mmol/L Chloride (98-107) mmol/L Anion Gap 18.6 H (3-11) mmol/L Creatinine 1.08 H (0.55-1.02) mg/dL Glucose (74-106) mg/dL Calcium (8.5-10.1) mg/dL AST 45 H (15-37) U/L Total Protein (6.4-8.2) g/dL Albumin (3.4-5.0) g/dL TSH 28.92 H (0.36-3.74) uIU/mL Ur Tricyclics Screen (Negative) U Benzodiazepines Scrn (Negative) Ur THC Screen (Negative) 04/29/19 04/30/19 04/30/19 Range/Units 23:30 05:58 06:04 RBC 3.57 L (4.00-5.20) m/cumm Hgb 11.2 L D (12.0-15.5) g/dL Hct 34.8 L (36.0-46.0) % MCV 97.5 H (80-95) fL Absolute Neutrophils (1.2-6.7) k/cumm Absolute Monocytes (0.11-0.7) k/cumm Potassium (3.5-5.1) mmol/L Chloride 109 H (98-107) mmol/L Anion Gap 12.2 H (3-11) mmol/L Creatinine (0.55-1.02) mg/dL Glucose 149 H (74-106) mg/dL Calcium 7.6 L (8.5-10.1) mg/dL AST (15-37) U/L Total Protein 6.1 L (6.4-8.2) g/dL Albumin 2.7 L (3.4-5.0) g/dL TSH (0.36-3.74) uIU/mL Ur Tricyclics Screen Positive A (Negative) U Benzodiazepines Scrn Positive A (Negative) Ur THC Screen Positive A (Negative) Vital Signs Temperature 37.2 C 04/30/19 08:10 Temperature Source Temporal Artery Scan 04/30/19 08:10 Pulse 107 H 04/30/19 08:10 Pulse Rhythm Regular 04/30/19 08:11 Pulse 105 H 04/30/19 08:00 Respiratory Rate 17 04/30/19 08:00 Respiratory Effort 04/30/19 08:11 Respiratory Depth Normal 04/30/19 08:11 Respiratory Pattern Normal 04/30/19 08:11 Blood Pressure 138/92 H 04/30/19 08:00 Blood Pressure Mean 103 04/30/19 08:00 Blood Pressure Position Supine 04/29/19 21:18 Pulse Oximetry 95 04/30/19 08:10 Oxygen Delivery Method Nasal Cannula 04/30/19 08:10 Oxygen Flow Rate 3 04/30/19 08:10 Pain Level 0 04/30/19 08:10 Intake & Output 04/29/19 04/29/19 04/30/19 11:59 23:59 11:59 Intake Total 1000 / 1000 Balance 1000 / 1000 Weight 80.3 kg 80.3 kg Intake: IV 1000 / 1000 Other: Comment hysterectomy Stool Size Large Stool Characteristics Soft Formed Brown Laboratory Results WBC 4.92 k/cumm (4.4-10.8) D 04/30/19 05:58 RBC 3.57 m/cumm (4.00-5.20) L 04/30/19 05:58 Hgb 11.2 g/dL (12.0-15.5) L D 04/30/19 05:58 Hct 34.8 % (36.0-46.0) L 04/30/19 05:58 MCV 97.5 fL (80-95) H 04/30/19 05:58 MCH 31.4 pg (27.0-33.0) 04/30/19 05:58 MCHC 32.2 g/dL (32.0-36.0) 04/30/19 05:58 RDW 14.0 % (11.7-14.6) 04/30/19 05:58 Plt Count 143 x1000/uL (130-400) 04/30/19 05:58 MPV 10.2 fL (8.0-11.0) 04/30/19 05:58 Immature Gran % 0.4 % 04/29/19 21:30 Neutrophils % 69.3 04/29/19 21:30 Lymphocytes % 17.9 04/29/19 21:30 Monocytes % 10.7 04/29/19 21:30 Eosinophils % 1.4 04/29/19 21: Basophils % 0.3 04/29/19 21:30 Absolute Neutrophils 7.18 k/cumm (1.2-6.7) H 04/29/19 21:30 Absolute Lymphocytes 1.85 k/cumm (1.2-3.4) 04/29/19 21:30 Absolute Monocytes 1.11 k/cumm (0.11-0.7) H 04/29/19 21:30 Absolute Eosinophils 0.14 k/cumm (0.0-0.7) 04/29/19 21:30 Absolute Basophils 0.03 k/cumm (0.0-0.2) 04/29/19 21:30 PT 9.8 sec (9.3-11.0) 04/29/19 21:30 INR 1.0 (0.9-1.1) 04/29/19 21:30 APTT 26.7 sec (21.0-31.4) 04/29/19 21:30 Sodium 143 mmol/L (136-145) 04/30/19 06:04 Potassium 4.4 mmol/L (3.5-5.1) D 04/30/19 06:04 Chloride 109 mmol/L (98-107) H 04/30/19 06:04 Carbon Dioxide 21.8 mmol/L (21.0-32.0) 04/30/19 06:04 Anion Gap 12.2 mmol/L (3-11) H 04/30/19 06:04 BUN 10 mg/dL (7-18) 04/30/19 06:04 Creatinine 0.89 mg/dL (0.55-1.02) 04/30/19 06:04 Estimated GFR/1.73 m2 >= 60.00 (mL/min/1.73m2) 04/30/19 06:04 Glucose 149 mg/dL (74-106) H 04/30/19 06:04 Calcium 7.6 mg/dL (8.5-10.1) L 04/30/19 06:04 Phosphorus 3.9 mg/dL (2.6-4.7) 04/30/19 05:58 Magnesium 2.1 mg/dL (1.8-2.4) 04/29/19 21:30 Total Bilirubin 0.2 mg/dL (0.2-1.0) 04/30/19 06:04 AST 34 U/L (15-37) 04/30/19 06:04 ALT 27 U/L (14-59) 04/30/19 06:04 Alkaline Phosphatase 87 U/L (46-116) 04/30/19 06:04 Troponin I < 0.05 ng/Ml (<0.06) 04/30/19 00:20 NT-Pro-B Natriuret Pep 113 pg/mL (<300) 04/29/19 21:30 Total Protein 6.1 g/dL (6.4-8.2) L 04/30/19 06:04 Albumin 2.7 g/dL (3.4-5.0) L 04/30/19 06:04 TSH 28.92 uIU/mL (0.36-3.74) H 04/29/19 21:30 Free T4 0.98 ng/dL (0.76-1.46) 04/29/19 21:30 Urine Color Yellow (Yellow) 04/29/19 23:30 Urine Clarity Clear (Clear) 04/29/19 23: Urine pH 6.0 (5-8) 04/29/19 23: Ur Specific [place] 1.015 (1.005-1.025) 04/29/19 23:30 Urine Protein Negative mg/dL (Negative) 04/29/19 23:30 Urine Ketones Negative mg/dL (Negative) 04/29/19 23: Urine Blood Negative (Negative) 04/29/19 23:30 Urine Nitrite Negative (Negative) 04/29/19 23:30 Urine Bilirubin Negative (Negative) 04/29/19: Urine Urobilinogen 0.2 EU/dL (Up TO 0.2) 04/29/19 23:30 Ur Leukocyte Esterase Negative (Negative) 04/29/19 23:30 Urine Glucose Negative mg/dL (Negative) 04/29/19 23:30 Urine Opiates Screen Negative (Negative) 04/29/19 23: Urine Methadone Screen Negative (Negative) 04/29/19 23: Ur Barbiturates Screen Negative (Negative) 04/29/19:30 Ur Tricyclics Screen Positive (Negative) A 04/29/19 23:30 Ur Amphetamines Screen Negative (Negative) 04/29/19: U Benzodiazepines Scrn Positive (Negative) A 04/29/19 23:30 Urine Cocaine Screen Negative (Negative) 04/29/19 23:30 Ur THC Screen Positive (Negative) A 04/29/19 23: Ethyl Alcohol 156.8 mg/dL (<3) 04/29/19 21:30
--- NOTE | 2019-04-30 10:12 | W.PM.DS.N ---
Date of service: 04/30/19 Time of Service: 10:12 DS: Diagnosis Discharge Diagnosis (1) Altered mental status associated with intoxication: Status: Resolved Asessment and Plan: Patient advised not to drink alcohol while taking her controlled medications and the risk of (2) Sinusitis, acute: Status: Acute (3) COPD exacerbation: Status: Resolved (4) Hypokalemia: Status: Resolved (5) Alcohol abuse: Status: Chronic (6) Nicotine dependence with current use: Status: Chronic (7) Hypothyroidism (acquired): Status: Chronic Asessment and Plan: will need follow up TSH as outpatient (8) Chronic respiratory failure with hypoxia: Status: Chronic Discharge Plan Disposition Patient Disposition: HOME Condition: Serious Discharge Details Chief Complaint: RespSymp Clinical Impression: Altered mental status, Acute exacerbation of chronic obstructive pulmonary disease (COPD) Reason For Visit: COPD EXACERBATION,ALCOHOL/SEDATIVE INTOXICATION,HY Admit Date/Time: 04/29/19 22:34 Admit Provider: Tarik Sanchez Attending Provider: Tarik Sanchez Primary Care Provider: Remy Ortega ED Provider: Saturnino Potter Hospital Course Hospital Course: Ms Pa is a 58 year old female with PMHx of oxygen and steroid-dependent COPD/chronic hypoxic respiratory failure on 3L of O2 at baseline, as well as chronic adrenal insufficiency, alcohol abuse and hypothyroidism who was observed on [facility] hospitalist service from 04/29/2019 until 04/30/2019 after presenting to the hospital lethargic having taken her regular sedative medications had two alcoholic beverages (per her). Narcan reportedly did not result in any clinical effect. Her COPD was felt to be in mild exacerbation of presentation, but her breathing is a lot better, per patient, on the morning of 04/30/2019. After a night of sleep, the patient is back to her baseline from mental status and respiratory stand points. She does have sinusitis for which she is being prescribed augmentin. She is being prescribed a steroid taper on discharge. She was advised not to drink while taking her sedative and narcotic medications and the risk of - patient verbalized understanding. The patient's TSH was 28.92 on this admission, indicating likely noncompliance with levothyroxine. We ask that this be followed up by PCP. Clinically, there are no signs of myxedema coma. She is asked to continue her previously prescribed dose of levothyroxine. She is medically ready for discharge home today. Home Meds and New Rx's Prescriptions: New multivitamin [Multiple Vitamins] Tablet 1 tab PO DAILY Qty: 30 RF: 0 nicotine 21 mg/24 hr Patch 24 Hour 21 mg transdermal DAILY PRN PRNQty: 30 RF: 0 amoxicillin-pot clavulanate 875-125 mg Tablet 1 tab PO BID Qty: 10 RF: 0 thiamine mononitrate (vit B1) [Vitamin B-1 (mononitrate)] 100 mg Tablet 100 mg PO DAILY Qty: 30 RF: 0 Continued albuterol sulfate [ProAir HFA] 8.5 GM HFA aerosol inhaler 2 puff Inhalation Q4H PRN PRNRF: 0 citalopram 40 MG tablet 40 mg PO DAILY RF: 0 risperidone [Risperdal] 1 MG tablet 1.5 mg PO HS RF: 0 omeprazole 20 MG capsule,delayed release(DR/EC) 40 mg PO DAILY RF: 0 trazodone 100 MG tablet 100 mg PO HS PRNRF: 0 zolpidem [Ambien] 5 MG tablet 10 mg PO HS PRN PRNRF: 0 levothyroxine [Synthroid] 75 MCG tablet 75 mcg PO DAILY Qty: 90 RF: 0 polyethylene glycol 3350 17 GM powder in packet 17 gm PO BID PRN PRNRF: 0 magnesium oxide 400 MG tablet 800 mg PO BID Qty: 60 RF: 2 Trelegy Ellipta 100-62.5-25 mcg Blister With Device 1 inh INHALATION DAILY RF: 0 cyclobenzaprine 10 mg Tablet 10 mg PO TID PRNRF: 0 benzonatate 100 mg Capsule 100 mg PO TID PRNQty: 9 RF: 0 guaifenesin [Mucinex] 600 mg Tablet Extended Release 12hr 600 mg PO BID Qty: 6 RF: 0 epinephrine [EpiPen 2-Janes] 0.3 MG/0.3 ML auto-injector 0.3 mg IM PRN PRNRF: 0 lisinopril 5 mg Tablet 5 mg PO DAILY RF: 0 meloxicam 15 mg Tablet 15 mg PO DAILY PRNRF: 0 bupropion HCl 300 mg Tablet Extended Release 24 Hr 300 mg PO QAM RF: 0 budesonide-formoterol [Symbicort] 160-4.5 mcg/actuation Hfa Aerosol Inhaler 2 puff Inhalation BID Qty: 6 RF: 0 oxycodone-acetaminophen [Percocet] 5-325 mg Tablet 1 tab PO BID PRNRF: 0 nicotine (polacrilex) 4 mg Gum 4 mg PO Q30MIN PRNRF: 0 buspirone 15 mg Tablet 15 mg PO BID RF: 0 alprazolam 2 mg Tablet Extended Release 24 Hr 2 mg PO BID RF: 0 calcium carbonate-vitamin D3 [Calcium 500 With D] 500 mg(1,250mg) -400 unit Tablet 1 tab PO DAILY RF: 0 pregabalin [Lyrica] 50 mg Capsule 50 mg PO TID RF: 0 prednisone 10 mg tablet 10 mg PO DAILY Qty: 34 RF: 0 ipratropium-albuterol 3 ML solution for nebulization 3 ml UPD Q6H 30 Days Qty: 180 RF: 1 Discharge Instructions Instructions: Amoxicillin/Clavulanate Potassium (By mouth), Sinusitis (GEN), Alcohol Intoxication (GEN) Additional Instructions: Finish your antibiotics and steroid taper as prescribed. Return to the hospital with any fever, bleeding, chest pain, or shortness of breath. Do not drink alcohol - you must abstain from it as its interactions with your medications could be deadly. Make sure you take your levothyroxine (synthroid) every day. Follow up with your PCP in 1-2 weeks. Referrals: Remy Ortega [Primary Care Provider] - Activity:: Activity as Tolerated Equipment/Supplies:: No Equipment Needed Diet:: Low Sodium Discharge Orders Discharge Orders: Discharge Order (Routine); Ordered 04/30/19 Ordered By: Brenda Mcmanus DS: Summary Status at Discharge Functional status at discharge: uses cane/walker Overall status at discharge: patient is back to baseline Mental Status: mental status grossly normal Speech and Movement: speech and movement normal Mood: congruent mood Affect: normal affect Exam Narrative Exam Narrative: General: Very pleasant obese female, sitting comfortably in bed, not in any acute distress, A&OX3, very awake, answering questions appropriately HEENT: EOMI, MMM, + goiter Heart: RRR, no m/r/g Lungs: Wheezing on expiration B Abdomen: soft, nontender, nondistended Extremities: trace edema BLE's Psych Mental Status: mental status grossly normal Speech and Movement: speech and movement normal Mood: congruent mood Affect: normal affect DS: Data Vitals/I&O Vitals and I&O: Vital Signs Temperature 37.2 C 04/30/19 08:10 Temperature Source Temporal Artery Scan 04/30/19 08:10 Pulse 107 H 04/30/19 08:10 Pulse Rhythm Regular 04/30/19 08:11 Pulse 105 H 04/30/19 08:00 Respiratory Rate 17 04/30/19 08:00 Respiratory Effort 04/30/19 08:11 Respiratory Depth Normal 04/30/19 08:11 Respiratory Pattern Normal 04/30/19 08:11 Blood Pressure 138/92 H 04/30/19 08:00 Blood Pressure Mean 103 04/30/19 08:00 Blood Pressure Position Supine 04/29/19 21:18 Pulse Oximetry 95 04/30/19 08:10 Oxygen Delivery Method Nasal Cannula 04/30/19 08:10 Oxygen Flow Rate 3 04/30/19 08:10 Pain Level 0 04/30/19 08:10 Intake & Output 04/29/19 04/29/19 04/30/19 11:59 23:59 11:59 Intake Total 1000 / 1000 Balance 1000 / 1000 Weight 80.3 kg 80.3 kg Intake: IV 1000 / 1000 Other: Comment hysterectomy Stool Size Large Stool Characteristics Soft Formed Brown Data Completed and Pending Completed studies during hospitalization [Text1]: CT head: Negative for acute intracranial pathology. CXR: Negative for acute thoracic pathology. Labs on day of discharge: Labs from last 24 hours 04/30/19 04/30/19 04/30/19 06:04 05:58 05:58 WBC 4.92 D RBC 3.57 L Hgb 11.2 L D Hct 34.8 L MCV 97.5 H MCH 31.4 MCHC 32.2 RDW 14.0 Plt Count 143 MPV 10.2 Immature Gran % Neutrophils % Lymphocytes % Monocytes % Eosinophils % Basophils % Absolute Neutrophils Absolute Lymphocytes Absolute Monocytes Absolute Eosinophils Absolute Basophils PT INR APTT Sodium 143 Potassium 4.4 D Chloride 109 H Carbon Dioxide 21.8 Anion Gap 12.2 H BUN 10 Creatinine 0.89 Estimated GFR/1.73 m2 >= 60.00 Glucose 149 H Calcium 7.6 L Phosphorus 3.9 Magnesium Total Bilirubin 0.2 AST 34 ALT 27 Alkaline Phosphatase 87 Troponin I NT-Pro-B Natriuret Pep Total Protein 6.1 L Albumin 2.7 L TSH Free T4 Urine Color Urine Clarity Urine pH Ur Specific [place] Urine Protein Urine Ketones Urine Blood Urine Nitrite Urine Bilirubin Urine Urobilinogen Ur Leukocyte Esterase Urine Glucose Urine Opiates Screen Urine Methadone Screen Ur Barbiturates Screen Ur Tricyclics Screen Ur Amphetamines Screen U Benzodiazepines Scrn Urine Cocaine Screen Ur THC Screen Ethyl Alcohol 04/30/19 04/29/19 04/29/19 00:20 23:30 23:30 WBC RBC Hgb Hct MCV MCH MCHC RDW Plt Count MPV Immature Gran % Neutrophils % Lymphocytes % Monocytes % Eosinophils % Basophils % Absolute Neutrophils Absolute Lymphocytes Absolute Monocytes Absolute Eosinophils Absolute Basophils PT INR APTT Sodium Potassium Chloride Carbon Dioxide Anion Gap BUN Creatinine Estimated GFR/1.73 m2 Glucose Calcium Phosphorus Magnesium Total Bilirubin AST ALT Alkaline Phosphatase Troponin I < 0.05 NT-Pro-B Natriuret Pep Total Protein Albumin TSH Free T4 Urine Color Yellow Urine Clarity Clear Urine pH 6.0 Ur Specific [place] 1.015 Urine Protein Negative Urine Ketones Negative Urine Blood Negative Urine Nitrite Negative Urine Bilirubin Negative Urine Urobilinogen 0.2 Ur Leukocyte Esterase Negative Urine Glucose Negative Urine Opiates Screen Negative Urine Methadone Screen Negative Ur Barbiturates Screen Negative Ur Tricyclics Screen Positive A Ur Amphetamines Screen Negative U Benzodiazepines Scrn Positive A Urine Cocaine Screen Negative Ur THC Screen Positive A Ethyl Alcohol 04/29/19 04/29/19 04/29/19 21:30 21:30 21:30 WBC 10.35 RBC 4.14 Hgb 13.3 Hct 40.4 MCV 97.6 H MCH 32.1 MCHC 32.9 RDW 14.2 Plt Count 166 MPV 9.6 Immature Gran % 0.4 Neutrophils % 69.3 Lymphocytes % 17.9 Monocytes % 10.7 Eosinophils % 1.4 Basophils % 0.3 Absolute Neutrophils 7.18 H Absolute Lymphocytes 1.85 Absolute Monocytes 1.11 H Absolute Eosinophils 0.14 Absolute Basophils 0.03 PT INR APTT Sodium 138 Potassium 3.1 L Chloride 98 Carbon Dioxide 21.4 Anion Gap 18.6 H BUN 11 Creatinine 1.08 H Estimated GFR/1.73 m2 52.48 Glucose 104 Calcium 9.5 Phosphorus Magnesium 2.1 Total Bilirubin 0.3 AST 45 H ALT 36 Alkaline Phosphatase 111 Troponin I < 0.05 NT-Pro-B Natriuret Pep Total Protein 7.8 Albumin 3.8 TSH 28.92 H Free T4 0.98 Urine Color Urine Clarity Urine pH Ur Specific [place] Urine Protein Urine Ketones Urine Blood Urine Nitrite Urine Bilirubin Urine Urobilinogen Ur Leukocyte Esterase Urine Glucose Urine Opiates Screen Urine Methadone Screen Ur Barbiturates Screen Ur Tricyclics Screen Ur Amphetamines Screen U Benzodiazepines Scrn Urine Cocaine Screen Ur THC Screen Ethyl Alcohol 156.8 04/29/19 04/29/19 21:30 21:30 WBC RBC Hgb Hct MCV MCH MCHC RDW Plt Count MPV Immature Gran % Neutrophils % Lymphocytes % Monocytes % Eosinophils % Basophils % Absolute Neutrophils Absolute Lymphocytes Absolute Monocytes Absolute Eosinophils Absolute Basophils PT 9.8 INR 1.0 APTT 26.7 Sodium Potassium Chloride Carbon Dioxide Anion Gap BUN Creatinine Estimated GFR/1.73 m2 Glucose Calcium Phosphorus Magnesium Total Bilirubin AST ALT Alkaline Phosphatase Troponin I NT-Pro-B Natriuret Pep 113 Total Protein Albumin TSH Free T4 Urine Color Urine Clarity Urine pH Ur Specific [place] Urine Protein Urine Ketones Urine Blood Urine Nitrite Urine Bilirubin Urine Urobilinogen Ur Leukocyte Esterase Urine Glucose Urine Opiates Screen Urine Methadone Screen Ur Barbiturates Screen Ur Tricyclics Screen Ur Amphetamines Screen U Benzodiazepines Scrn Urine Cocaine Screen Ur THC Screen Ethyl Alcohol [facility] Medical History Anxiety disorder (Chronic) Bipolar disorder (Acute) COPD exacerbation (Acute) Hypothyroidism (acquired) (Acute) Nicotine dependence with current use (Chronic) Pulmonary histiocytosis x (Acute) Respiratory failure (Acute) Surgical History History of right shoulder replacement (Acute) Dr. Dee at [facility]. 5-6 years ago per pt. Hx of bilateral cataract extraction (Acute) [address] Santos. Hx of section (Chronic) x 2. Hx of hysterectomy (Chronic) 10 yrs ago, done in [place] per pt. Social History Smoking/Tobacco Use Status: Current every day Tobacco Type: cigarettes Tobacco: How many years used: 40 Alcohol Intake: current Alcohol Intake frequency: a few times a week Alcohol type: beer Counseling given: Yes Details: says she is in AA and talks to her sponsor daily, drinking at 9 am @ visit Drug use: Current Sobriety Substance use type: does not use Adopted: Yes Caregiver/Support person: No Foster care: Yes Household members: none Housing: apartment Number of Children: 1 number of grandchildren: 1 Pets and animals: No What is your relationship status?: How often do you get together with friends or relatives?: three or more times per week Panel score (0-1 are the most socially isolated patients): 1 What type of physical activity do you participate in: none Do you feel safe at home: Yes Do you feel safe in your relationship?: Yes
--- NOTE | 2019-04-30 10:41 | PDOC.HHF2F ---
Home Health Certification Home Health Certification: 1. Encounter Date and Reason I certify that SHAVON FERNANDEZ was seen by Brenda Mcmauns on 04/30/19 and that I had a [id number] encounter with this patient that meets the physician face to face encounter requirements. 2. Clinical Findings Supporting Skilled Need and Homebound Status I certify that home health services are medically necessary, include either intermittent senior care and/or physical/speech therapy, and that this patient is homebound in that absences from the home require considerable and taxing effort and are infrequent or of short duration, or are attributable to the need to receive medical care. [X] (a) Attached documentation from encounter provides clinical findings supporting skilled need and homebound status (including what assistance patient requires to leave the home). The encounter with the patient was in whole, or in part, for the following medical condition, which is the primary reason for home health care: COPD EXACERBATION,ALCOHOL/SEDATIVE INTOXICATION,HY Chcf: oxygen and steroid dependent COPD - recent exacerbation, question of medical noncompliance - assess/medication teaching Physical Therapy: eval and treat Homebound: unable to leave home without assistance 3. Certification and Authentication I certify that I composed the above information based on my clinical judgement relating to this patient's medical condition and, if applicable, clinical findings communicated to me by the NPP or inpatient physician who performed the Home Health Referral. All further orders will be obtained through __Remy Elizalde (Community Based Physician - PCP)
== END 2019-04-30 12:00 | disposition home health service (06) ==
LOC: ER 22:49 → ICU 04-30 00:05
PROVIDERS: Admitting Provider Family Medicine; Emergency Provider Physician Assistant; PCP Family Medicine; Visit Provider Internal Medicine
DX: J96.21 Acute and chronic respiratory failure with hypoxia (principal); J44.1 Chronic obstructive pulmonary disease with (acute) exacerbation; F17.210 Nicotine dependence, cigarettes, uncomplicated; R40.0 Somnolence; E87.6 Hypokalemia; E03.9 Hypothyroidism, unspecified; J01.00 Acute maxillary sinusitis, unspecified; F10.120 Alcohol abuse with intoxication, uncomplicated; R94.6 Abnormal results of thyroid function studies; Z91.14 Patient's other noncompliance with medication regimen; Z79.51 Long term (current) use of inhaled steroids
CPT/HCPCS: 36415; 51701; 80053; 80307; 85027; 93005; 94618; 94640; 96361; 96374; 96375; 99217; 99220; 99285; J1650; 70450; 71045; 80320; 81003; 83735; 83880; 84100; 84439; 84443; 84484; 85025; 85610; 85730; 93010; G0378; J2310; J2930; J7613; J7620

== ENCOUNTER 2019-07-08 17:05 | Emergency (ER) | payer MEDICAID, SELFPAY ==
[2019-07-08 17:08] VITALS: BP 136/82; PULSE 104; RESP 22; TEMP 36.6; O2SAT 99
--- NOTE | 2019-07-08 17:15 | DI.RAD_ITS ---
EXAM: XR RIBS LT W PA LAT CHEST CLINICAL HISTORY: fall, rib pain, sob TECHNIQUE: 2D digital imaging was performed. COMPARISON: XR PORTABLE CHEST AP from 09/10/2018 XR CHEST 2V PA LATERAL from 10/27/2018 XR CHEST 1V IN DI DEPT from 04/29/2019 FINDINGS: The PA view is overpenetrated and rotated. There are underlying emphysematous and fibrotic changes. Suture material is seen in the right mid lung. No pneumothorax is seen. No rib fracture is visibl e. Lower ribs are not well penetrated. There is an old fracture left proximal humerus. A right scott ulder prosthesis is seen there are stable thoracic compression fractures as well as degenerative rothman ges. IMPRESSION: No acute abnormality.
--- NOTE | 2019-07-08 17:22 | W.ED.GENAD ---
Discharge Plan Disposition Patient Disposition: HOME Condition: Stable Discharge Details Chief Complaint: Chest/Rib Clinical Impression: Chest wall pain, Leukocytosis Primary Care Provider: Remy Ortega ED Provider: Saturnino Potter Home Meds and New Rx's Prescriptions: No Action albuterol sulfate [ProAir HFA] 8.5 GM HFA aerosol inhaler 2 puff Inhalation Q4H PRN PRNRF: 0 citalopram 40 MG tablet 40 mg PO DAILY RF: 0 risperidone [Risperdal] 1 MG tablet 1.5 mg PO HS RF: 0 omeprazole 20 MG capsule,delayed release(DR/EC) 40 mg PO DAILY RF: 0 trazodone 100 MG tablet 100 mg PO HS PRNRF: 0 zolpidem [Ambien] 5 MG tablet 10 mg PO HS PRN PRNRF: 0 levothyroxine [Synthroid] 75 MCG tablet 75 mcg PO DAILY Qty: 90 RF: 0 polyethylene glycol 3350 17 GM powder in packet 17 gm PO BID PRN PRNRF: 0 magnesium oxide 400 MG tablet 800 mg PO BID Qty: 60 RF: 2 Trelegy Ellipta 100-62.5-25 mcg Blister With Device 1 inh INHALATION DAILY RF: 0 cyclobenzaprine 10 mg Tablet 10 mg PO TID PRNRF: 0 benzonatate 100 mg Capsule 100 mg PO TID PRNQty: 9 RF: 0 guaifenesin [Mucinex] 600 mg Tablet Extended Release 12hr 600 mg PO BID Qty: 6 RF: 0 epinephrine [EpiPen 2-Janes] 0.3 MG/0.3 ML auto-injector 0.3 mg IM PRN PRNRF: 0 lisinopril 5 mg Tablet 5 mg PO DAILY RF: 0 meloxicam 15 mg Tablet 15 mg PO DAILY PRNRF: 0 bupropion HCl 300 mg Tablet Extended Release 24 Hr 300 mg PO QAM RF: 0 budesonide-formoterol [Symbicort] 160-4.5 mcg/actuation Hfa Aerosol Inhaler 2 puff Inhalation BID Qty: 6 RF: 0 oxycodone-acetaminophen [Percocet] 5-325 mg Tablet 1 tab PO BID PRNRF: 0 nicotine (polacrilex) 4 mg Gum 4 mg PO Q30MIN PRNRF: 0 buspirone 15 mg Tablet 15 mg PO BID RF: 0 alprazolam 2 mg Tablet Extended Release 24 Hr 2 mg PO BID RF: 0 calcium carbonate-vitamin D3 [Calcium 500 With D] 500 mg(1,250mg) -400 unit Tablet 1 tab PO DAILY RF: 0 pregabalin [Lyrica] 50 mg Capsule 50 mg PO TID RF: 0 multivitamin [Multiple Vitamins] Tablet 1 tab PO DAILY Qty: 30 RF: 0 nicotine 21 mg/24 hr Patch 24 Hour 21 mg transdermal DAILY PRN PRNQty: 30 RF: 0 thiamine mononitrate (vit B1) [Vitamin B-1 (mononitrate)] 100 mg Tablet 100 mg PO DAILY Qty: 30 RF: 0 prednisone 10 mg tablet 10 mg PO DAILY Qty: 34 RF: 0 ipratropium-albuterol 3 ML solution for nebulization 3 ml UPD Q6H 30 Days Qty: 180 RF: 1 Discharge Instructions Instructions: Chest Wall Pain (ED), Leukocytosis (ED) Additional Instructions: X-ray does not reveal any obvious pneumonia or broken ribs. A subtle broken rib can be extremely difficult to see on a plain chest x-ray. [id number] medication such as Tylenol and/or Motrin as directed for discomfort. Cool and/or warm compresses every 2 hours for 20 minutes. Please watch for new or evolving symptoms and return to the ER for any concerns. Otherwise I recommend contacting your primary care provider on Wednesday for prompt outpatient reevaluation Medical Decision Making 59-year-old female presents via EMS status post fall and left rib pain. She is a history of smoking, COPD, pneumonia, respiratory failure. No cardiac disease per patient. She reports that she was asymptomatic prior to the fall and that her pain is worse with movement, coughing, deep breathing, palpation. Clinically she appears well, nontoxic. There is no crepitus or obvious trauma but there is certainly reproducible discomfort along her chest wall. Based upon her HPI evaluation this does not appear to be cardiac in nature. Evaluation is certainly more concerning for chest wall contusion, rib fracture, pneumothorax. Given her baseline cough, certainly could be pneumonia as well. Her O2 sats are in the high 90s on her typical 3 L nasal cannula. Will obtain CBC, CMP, chest x-ray with left rib series. As above, the pain is reproducible, symptoms began after falling, will not obtain EKG or troponin. Her pulse via triage was 104 however during my evaluation she was 92. Laboratory values reveal a white blood cell count of 16.07 however she is on chronic steroid use and she typically does have moderate leukocytosis when trending her labs over a long period of time. No clear indication that there is an infectious process present, likely secondary to steroid use. Hemoglobin 12.7 hematocrit 38.6 platelets 231. Sodium 137 potassium 4.7 chloride 100, dioxide 29.0. Creatinine 1.09 Chest x-ray with left rib series read by virtual radiology as no acute cardiopulmonary disease, no displaced rib fracture. Upon reevaluation patient is resting comfortably eating a turkey sandwich. She is relieved that her ribs are not broken and she admits that she feels well mostly discharged home. Prior to discharge I did discuss disposition with Dr. Hackett Medical Records Medical records reviewed: Yes I reviewed the patient's medical records. HPI General Mode of arrival: EMS. Date/Time Provider Initiated Documentation: 07/08/19 17:19. Limitations to Documentation: no limitations. Information obtained by: patient. HPI Narrative: This is a 59-year-old female with significant past medical history of chronic respiratory failure with hypoxia, altered mental status secondary to intoxication, hypokalemia, healthcare associated pneumonia, COPD, anxiety, hypothyroidism, bipolar, current smoker, who reports that last night she had a few alcoholic drinks, had a mechanical fall onto her floor injuring her left chest wall and ribs. She reports no other injury, specifically denies striking her head or any neck pain. She reports that she has a slightly productive baseline cough secondary to her COPD but that her cough currently is no different than her baseline. Denies any fever. She reports that the pain in her left chest wall and ribs is worse with deep breathing or movement. Prior to the fall she reports that she was asymptomatic. Denies any pain or swelling in her legs. Denies wheezing. She typically wears 3 L nasal cannula O2 and that is what she presents to the ER with. Related Data Home Medications Medication Instructions Recorded Confirmed albuterol sulfate [ProAir HFA] 2 puff INHALATION Q4H PRN PRN 01/01/16 07/08/19 citalopram 40 mg PO DAILY 01/03/16 07/08/19 risperidone [Risperdal] 1.5 mg PO HS 01/03/16 07/08/19 levothyroxine [Synthroid] 75 mcg PO DAILY #90 tab 06/25/16 07/08/19 magnesium oxide 800 mg PO BID #60 tab 06/25/16 07/08/19 polyethylene glycol 3350 17 gm PO BID PRN PRN packet 06/25/16 07/08/19 epinephrine [EpiPen 2-Janes] 0.3 mg IM PRN PRN 07/10/16 07/08/19 omeprazole 40 mg PO DAILY 07/29/16 07/08/19 trazodone 100 mg PO HS PRN 08/04/16 07/08/19 zolpidem [Ambien] 10 mg PO HS PRN PRN 08/04/16 07/08/19 Trelegy Ellipta 1 inh INHALATION DAILY 08/03/18 07/08/19 lisinopril 5 mg PO DAILY 08/19/18 07/08/19 meloxicam 15 mg PO DAILY PRN 08/19/18 07/08/19 bupropion HCl 300 mg PO QAM 08/20/18 07/08/19 budesonide-formoterol [Symbicort] 2 puff INHALATION BID #6 gm 08/21/18 07/08/19 cyclobenzaprine 10 mg PO TID PRN 09/10/18 07/08/19 benzonatate 100 mg PO TID PRN #9 cap 09/15/18 07/08/19 guaifenesin [Mucinex] 600 mg PO BID #6 tab 09/15/18 07/08/19 alprazolam 2 mg PO BID 04/29/19 07/08/19 buspirone 15 mg PO BID 04/29/19 07/08/19 calcium carbonate-vitamin D3 1 tab PO DAILY 04/29/19 07/08/19 [Calcium 500 With D] nicotine (polacrilex) 4 mg PO Q30MIN PRN 04/29/19 04/29/19 oxycodone-acetaminophen [Percocet] 1 tab PO BID PRN 04/29/19 07/08/19 pregabalin [Lyrica] 50 mg PO TID 04/29/19 07/08/19 ipratropium-albuterol 3 ml UPD Q6H 30 Days #180 ml 04/30/19 07/08/19 multivitamin [Multiple Vitamins] 1 tab PO DAILY #30 tab 04/30/19 07/08/19 nicotine 21 mg TRANSDERMAL DAILY PRN PRN 04/30/19 #30 ea prednisone 10 mg PO DAILY #34 tab 04/30/19 07/08/19 thiamine mononitrate (vit B1) 100 mg PO DAILY #30 tab 04/30/19 07/08/19 [Vitamin B-1 (mononitrate)] Previous Rx's Medication Instructions Recorded levothyroxine [Synthroid] 75 mcg PO DAILY #90 tab 06/25/16 magnesium oxide 800 mg PO BID #60 tab 06/25/16 polyethylene glycol 3350 17 gm PO BID PRN PRN packet 06/25/16 budesonide-formoterol [Symbicort] 2 puff INHALATION BID #6 gm 08/21/18 benzonatate 100 mg PO TID PRN #9 cap 09/15/18 guaifenesin [Mucinex] 600 mg PO BID #6 tab 09/15/18 ipratropium-albuterol 3 ml UPD Q6H 30 Days #180 ml 04/30/19 multivitamin [Multiple Vitamins] 1 tab PO DAILY #30 tab 04/30/19 nicotine 21 mg TRANSDERMAL DAILY PRN PRN 04/30/19 #30 ea prednisone 10 mg PO DAILY #34 tab 04/30/19 thiamine mononitrate (vit B1) 100 mg PO DAILY #30 tab 04/30/19 [Vitamin B-1 (mononitrate)] Allergies Allergy/AdvReac Type Severity Reaction Status Date / Time venom-honey bee Allergy Severe Anaphylaxsi Verified 07/08/19 17:16 s General Stated Complaint: Chest/Rib ADALBERTO: 3 Review of Systems Constitutional Constitutional: Denies fatigue, Denies fever(s) and Denies headache(s) Eyes Eyes: Denies change in vision ENT Ears, Nose, Mouth, and Throat: Denies headache(s) and Denies sore throat Cardiovascular Cardiovascular: Reports chest pain (Chest wall and rib pain), Denies leg edema and Reports dyspnea (Secondary to pain) Respiratory Respiratory: Reports cough (Chronic), Reports pain with cough and Reports dyspnea (Secondary to pain) Gastrointestinal Gastrointestinal: Denies abdominal pain, Denies nausea and Denies vomiting Genitourinary Genitourinary: Denies dysuria Musculoskeletal Musculoskeletal: Reports back pain (Chronic in nature) Integumentary/Breasts Skin/Breast: Denies rash Neurologic Neurologic: Denies headache(s) Endocrine Endocrine: Denies fatigue Hematologic/Lymphatic Hematologic/Lymphatic: Denies easy bleeding and Denies easy bruising [facility] Medical History Anxiety disorder (Chronic) Bipolar disorder (Acute) COPD exacerbation (Resolved) Hypothyroidism (acquired) (Chronic) Nicotine dependence with current use (Chronic) Pulmonary histiocytosis x (Acute) Respiratory failure (Acute) Surgical History History of right shoulder replacement (Acute) Dr. Dee at [facility]. 5-6 years ago per pt. Hx of bilateral cataract extraction (Acute) [address] Santos. Hx of section (Chronic) x 2. Hx of hysterectomy (Chronic) 10 yrs ago, done in [place] per pt. Social History Smoking/Tobacco Use Status: Current every day Tobacco Type: cigarettes Tobacco: How many years used: 40 Alcohol Intake: current Alcohol Intake frequency: a few times a week Alcohol type: beer Counseling given: Yes Details: says she is in AA and talks to her sponsor daily, drinking at 9 am @ visit Drug use: Current Sobriety Substance use type: does not use Adopted: Yes Caregiver/Support person: No Foster care: Yes Household members: none Housing: apartment Number of Children: 1 number of grandchildren: 1 Pets and animals: No What is your relationship status?: How often do you get together with friends or relatives?: three or more times per week Panel score (0-1 are the most socially isolated patients): 1 What type of physical activity do you participate in: none Do you feel safe at home: Yes Do you feel safe in your relationship?: Yes Exam Const General: cooperative, healthy appearing, comfortable and no acute distress Orientation: alert, awake and oriented x3 HENMT Head: normal to inspection, normocephalic and atraumatic Mouth: moist mucous membranes Throat: posterior oropharynx normal Eyes Conjunctivae: conjunctivae normal Neck Neck: normal visual inspection, full ROM, trachea midline and supple Chest Chest: normal inspection of the chest, no crepitus and tenderness rib (Left anterior-lateral chest wall just below the breast) Resp Effort & Inspection: normal respiratory effort and able to speak in complete sentences Auscultation: clear to auscultation bilaterally Cardio Rate: regular rate Rhythm: regular rhythm GI Inspection: normal to inspection Palpation: soft, not firm, no guarding and nontender Auscultation: normal bowel sounds Back/Spine/Pelvis Back: no CVA tenderness and No back tenderness Skin General skin exam: no rashes or lesions noted Neuro General: patient alert, patient awake, patient oriented x3, moves all extremities and no focal motor deficits Sensory Exam: no sensory deficits noted Extrem General: normal to inspection, full ROM, capillary refill normal, no pedal edema and no calf tenderness Psych Appearance: grossly normal Mental Status: mental status grossly normal Course Vital Signs Vital signs: Vital Signs Temperature 36.6 C 07/08/19 17:08 Pulse 104 H 07/08/19 17:08 Respiratory Rate 22 07/08/19 17:08 Blood Pressure 136/82 07/08/19 17:08 Pulse Oximetry 99 07/08/19 17:08 Temperature 36.6 C 07/08/19 17:08 Temperature Source Oral 07/08/19 17:08 Pulse 104 H 07/08/19 17:08 Respiratory Rate 22 07/08/19 17:08 Respiratory Effort Non-Labored 07/08/19 17:21 Respiratory Depth Normal 07/08/19 17:15 Respiratory Pattern Normal 07/08/19 17:15 Blood Pressure 136/82 07/08/19 17:08 Blood Pressure Position Sitting 07/08/19 17:08 Pulse Oximetry 99 07/08/19 17:08 Oxygen Delivery Method Nasal Cannula 07/08/19 17:08 Oxygen Flow Rate 3 07/08/19 17:08 Pain Level 9 07/08/19 17:15
[2019-07-08 17:44] LABS: Absolute Basophil Count 0.02 k/cumm (0.0-0.2); Absolute Monocyte Count 0.72 k/cumm (0.11-0.7); Basophils % 0.1; Eosinophils % 0.6; HCT 38.6 % (36.0-46.0); HGB 12.7 g/dL (12.0-15.5); Immature Grans % 0.6 %; Lymphocytes % 8.5; Mean Corp. HGB Concentration 32.9 g/dL (32.0-36.0); Mean Corpuscular Volume 94.1 fL (80-95); Mean Platelet Volume 9.1 fL (8.0-11.0); Monocytes % 4.5; Neutrophils % 85.7; Platelet Count 231 x1000/uL (130-400); RBC Distribution Width 14.9 % (11.7-14.6); White Blood Cell Count 16.07 k/cumm (4.4-10.8)
[2019-07-08 17:46] LABS: Absolute Lymphocyte Count 1.37 k/cumm (1.2-3.4); Absolute Neutrophil Count 13.77 k/cumm (1.2-6.7)
[2019-07-08 17:56] LABS: ALT 38 U/L (14-59); AST 29 U/L (15-37); Albumin 3.4 g/dL (3.4-5.0); Alkaline Phosphatase 106 U/L (46-116); BUN 19 mg/dL (7-18); Bilirubin, Total 0.3 mg/dL (0.2-1.0); CREATININE 1.09 mg/dL (0.55-1.02); Calcium 8.4 mg/dL (8.5-10.1); Chloride 100 mmol/L (98-107); Estimated GFR 51.74 (mL/min/1.73m2); Glucose 121 mg/dL (74-106); Potassium 4.7 mmol/L (3.5-5.1); Sodium 137 mmol/L (136-145)
--- NOTE | 2019-07-08 18:29 | DI.VRAD_ITS ---
PROCEDURE INFORMATION: Exam: XR Left Ribs Exam date and time: 07/08/2019 5:55 PM Age: 59 years old Clinical indication: Other: Fall, rib pain, SOB TECHNIQUE: Imaging protocol: XR Left ribs. Views: 2 views. COMPARISON: CR XR CHEST 1V IN DI DEPT 04/29/2019 10:06 PM FINDINGS: Bones/joints: No displaced rib fracture. Soft tissues: Unremarkable. IMPRESSION: No displaced rib fracture. PROCEDURE INFORMATION: Exam: XR Chest, 2 Views Exam date and time: 07/08/2019 5:55 PM Age: 59 years old Clinical indication: Other: Fall, rib pain, SOB TECHNIQUE: Imaging protocol: XR of the chest Views: 2 views. COMPARISON: 1. CR XR CHEST 1V IN DI DEPT 04/29/2019 10:06 PM 2. CR - XR CHEST 2V PA LATERAL 10/27/2018 12:15:57 PM FINDINGS: Lungs: There is mild hyperinflation. No focal consolidation. There is prominence of the interstitial markings, similar to prior. Pleural space: No pleural effusion. No pneumothorax. Heart/Mediastinum: Unremarkable. No cardiomegaly. Bones/joints: There is a right shoulder arthroplasty. There are multilevel degenerative changes in the spine. There is remote deformity of the proximal left humerus. Other findings: The chest x-ray sides are mislabeled. IMPRESSION: No acute cardiopulmonary disease. Dictated and Authenticated by: Manish Nuñez MD. Ordering:ZACK Matamoros MD
[2019-07-08 18:59] VITALS: BP 126/68; PULSE 104; RESP 18; TEMP 36.7; O2SAT 96
== END 2019-07-08 19:45 | disposition home or self-care (01) ==
PROVIDERS: Emergency Provider Physician Assistant; PCP Family Medicine
DX: R07.81 Pleurodynia (principal); W18.30XA Fall on same level, unspecified, initial encounter; D72.829 Elevated white blood cell count, unspecified; Z79.51 Long term (current) use of inhaled steroids; J44.9 Chronic obstructive pulmonary disease, unspecified; Z99.81 Dependence on supplemental oxygen; F17.210 Nicotine dependence, cigarettes, uncomplicated
CPT/HCPCS: 36415; 80053; 99284; 71046; 71100; 85025; 99285

== ENCOUNTER 2019-10-11 03:13 | Outpatient (CLI) | payer MEDICAID, SELFPAY ==
--- NOTE | 2019-10-11 | DI.CTLCSR_ITS ---
EXAM: CT CHEST LUNG CANCER SCREEN CLINICAL HISTORY: SMOKER, F17.00, SCREENING FOR LUNG CA COMPARISON: CT CT CHEST W from 09/11/2018 FINDINGS: CT examination of the chest was performed utilizing low-dose lung cancer screening protocol. Images obtained through the upper abdomen show unremarkable appearance of visualized portions of the liver and spleen. There is no evident mediastinal or hilar adenopathy. No thoracic aortic aneurysm. There are severe changes of centrilobular emphysema. There are multiple calcified and noncalcified p ulmonary scars. There are least two 6 millimeter nodules in the left upper lobe and a 6 millimeter n odule in the right lower lobe which are noncalcified, these are unchanged in appearance comparison wi th prior scan of September 2018. No new intrapulmonary nodule seen. No pleural effusion seen. IMPRESSION: Lung RADS Cat 2 - Benign Appearance / Behavior: Nodules with a very low likelihood of becoming a cli nically active cancer due to size or lack of growth Continue annual screening with LD CT in 12 months.
== END 2019-10-11 03:33 ==
PROVIDERS: PCP Family Medicine; Visit Provider Internal Medicine
DX: Z12.2 Encounter for screening for malignant neoplasm of respiratory organs (principal); F17.200 Nicotine dependence, unspecified, uncomplicated; R91.8 Other nonspecific abnormal finding of lung field
CPT/HCPCS: G0297

== ENCOUNTER 2019-11-04 17:21 | Emergency (ER) | payer MEDICAID, SELFPAY ==
[2019-11-04] VITALS (17 sets, daily range): BP systolic 107–119; BP diastolic 59–69; PULSE 86–98; RESP 13–25; TEMP 37.1; O2SAT 92–98
--- NOTE | 2019-11-04 17:24 | W.ED.GENAD ---
Discharge Plan Disposition Patient Disposition: HOME Condition: Stable Discharge Details Chief Complaint: Nk/Back Pain Clinical Impression: Gallstones, Lumbago without sciatica Primary Care Provider: Remy Ortega ED Provider: Mabel Hernandez Home Meds and New Rx's Prescriptions: No Action albuterol sulfate [ProAir HFA] 8.5 GM HFA aerosol inhaler 2 puff Inhalation Q4H PRN PRNRF: 0 citalopram 40 MG tablet 40 mg PO DAILY RF: 0 risperidone [Risperdal] 1 MG tablet 1.5 mg PO HS RF: 0 omeprazole 20 MG capsule,delayed release(DR/EC) 40 mg PO DAILY RF: 0 trazodone 100 MG tablet 100 mg PO HS PRNRF: 0 zolpidem [Ambien] 5 MG tablet 10 mg PO HS PRN PRNRF: 0 levothyroxine [Synthroid] 75 MCG tablet 75 mcg PO DAILY Qty: 90 RF: 0 polyethylene glycol 3350 17 GM powder in packet 17 gm PO BID PRN PRNRF: 0 magnesium oxide 400 MG tablet 800 mg PO BID Qty: 60 RF: 2 Trelegy Ellipta 100-62.5-25 mcg Blister With Device 1 inh INHALATION DAILY RF: 0 cyclobenzaprine 10 mg Tablet 10 mg PO TID PRNRF: 0 benzonatate 100 mg Capsule 100 mg PO TID PRNQty: 9 RF: 0 guaifenesin [Mucinex] 600 mg Tablet Extended Release 12hr 600 mg PO BID Qty: 6 RF: 0 epinephrine [EpiPen 2-Janes] 0.3 MG/0.3 ML auto-injector 0.3 mg IM PRN PRNRF: 0 lisinopril 5 mg Tablet 5 mg PO DAILY RF: 0 meloxicam 15 mg Tablet 15 mg PO DAILY PRNRF: 0 bupropion HCl 300 mg Tablet Extended Release 24 Hr 300 mg PO QAM RF: 0 budesonide-formoterol [Symbicort] 160-4.5 mcg/actuation Hfa Aerosol Inhaler 2 puff Inhalation BID Qty: 6 RF: 0 oxycodone-acetaminophen [Percocet] 5-325 mg Tablet 1 tab PO BID PRNRF: 0 nicotine (polacrilex) 4 mg Gum 4 mg PO Q30MIN PRNRF: 0 buspirone 15 mg Tablet 15 mg PO BID RF: 0 alprazolam 2 mg Tablet Extended Release 24 Hr 2 mg PO BID RF: 0 calcium carbonate-vitamin D3 [Calcium 500 With D] 500 mg(1,250mg) -400 unit Tablet 1 tab PO DAILY RF: 0 pregabalin [Lyrica] 50 mg Capsule 50 mg PO TID RF: 0 multivitamin [Multiple Vitamins] Tablet 1 tab PO DAILY Qty: 30 RF: 0 nicotine 21 mg/24 hr Patch 24 Hour 21 mg transdermal DAILY PRN PRNQty: 30 RF: 0 thiamine mononitrate (vit B1) [Vitamin B-1 (mononitrate)] 100 mg Tablet 100 mg PO DAILY Qty: 30 RF: 0 prednisone 10 mg tablet 10 mg PO DAILY Qty: 34 RF: 0 ipratropium-albuterol 3 ML solution for nebulization 3 ml UPD Q6H 30 Days Qty: 180 RF: 1 Discharge Instructions Instructions: Gallstones (ED), Low Back Strain (ED) Additional Instructions: You have some degenerative changes noted in your lumbar spine. Initial reading shows no acute findings of your CT. He also have some gallstones without evidence of an infection of your gallbladder. You were given some pain medication here in department. Please take muscle relaxer when you get home. Alternate ice and heat. Follow up with primary care provider in 3-5 days. Return to ED sooner if any worsening or concerns. Increase oral fluids. Return to the ER if you have any loss of bowel or bladder control, worsening pain, inability to ambulate, fever or any concerns. You do not have a urinary tract infection noted on her UA urinalysis today. Referrals: Remy Ortega [Primary Care Provider] - Discharge Data Discharge Date/Time-TO BE ENTERED AT DEPARTURE: 11/04/19 20:45 Medical Decision Making 59-year-old female presents to the ER with chief complaint of right sided back pain. This began around 11:00 this morning while patient was getting out of her recliner. Had sudden onset of pain. She rates her pain 10 out of 10. She states pain radiates down to her lower lumbar area denies pain radiating into her gluteal or leg. No midline tenderness with palpation. She also describes some pain with urination to her right back. She denies any shortness of breath, chest pain, fever chills or numbness tingling, nausea vomiting or diarrhea. She denies any loss of bowel or bladder control or saddle anesthesia. She does have expiratory wheezes noted bilaterally to the lung the lung kern which she reports is at her baseline. 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 She did recently have physical therapy on October 29 and a recent chest CT on October 10. TECHNIQUE: Imaging protocol: Computed tomography of the abdomen and pelvis without contrast. COMPARISON: CT ABD PELVIS WITH CONTRAST 06/23/2016 21:36 FINDINGS: Lungs: Mild dependent subsegmental atelectasis. Liver: No hepatic masses on noncontrast imaging. Gallbladder and bile ducts: Cholelithiasis. No pericholecystic edema. No significant biliary dilation or radiopaque stones in the biliary tree. Pancreas: No ductal dilation. No masses. Spleen: No splenomegaly or focal lesions. Adrenals: No mass. Kidneys and ureters: No nephrolithiasis or collecting system obstruction. Stomach and bowel: No obstruction. No mucosal thickening. Appendix: No evidence of appendicitis. Intraperitoneal space: No free air. No significant fluid collection. Vasculature: No abdominal aortic aneurysm. Lymph nodes: No significantly enlarged lymph nodes. Bladder: The urinary bladder is distended. No urinary bladder wall thickening. Reproductive: Hysterectomy. Bones/joints: Minor chronic appearing loss of height superior L1 endplate. Minor chronic appearing loss of height in the thoracic spine. Distal lumbar disc disease. No acute fracture or subluxation. Nonacute right sided rib deformities. Soft tissues: Mild dependent subcutaneous edema. IMPRESSION: 1. No acute findings. 2. No nephrolithiasis or collecting system obstruction. 3. Additional findings as described. Thank you for allowing us to participate in the care of your patient. Dictated and Authenticated by: Shelley Comer MD Discussed CT findings with patient, verbalized understanding. Patient given fentanyl IV push prior to discharge. At this time I do feel it is safe for patient be discharged home due to no red flags like loss of bowel or bladder control or saddle anesthesia. Patient verbalized understanding. She has multiple muscle relaxers at home and has oxycodone. Patient [facility] be [facility] She is ambulatory in department prior to discharge and sitting up in bed in no acute distress. Medical Records Medical records reviewed: Yes I reviewed the patient's medical records. Medical records narrative: Patient recently had a CT of her chest lung cancer screening on October 11, 2019 she does have a history of pulmonary histiocytosis showed no evidence of aortic aneurysm. She was also recently seen by physical therapy on October 30, 2019. HPI General Mode of arrival: EMS. Date/Time Provider Initiated Documentation: 11/04/19 17:24. Limitations to Documentation: no limitations. Information obtained by: patient. HPI Narrative: 59-year-old female presents to the ER with chief complaint of right sided back pain. This began around 11:00 this morning while patient was getting out of her recliner. Had sudden onset of pain. She rates her pain 10 out of 10. She states pain radiates down to her lower lumbar area denies pain radiating into her gluteal or leg. No midline tenderness with palpation. She also describes some pain with urination to her right back. She denies any shortness of breath, chest pain, fever chills or numbness tingling, nausea vomiting or diarrhea. She denies any loss of bowel or bladder control or saddle anesthesia. She does have expiratory wheezes noted bilaterally to the lung the lung kern which she reports is at her baseline. 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 She did recently have physical therapy on October 29 and a recent chest CT on October 10. Related Data Home Medications Medication Instructions Recorded Confirmed albuterol sulfate [ProAir HFA] 2 puff INHALATION Q4H PRN PRN 01/01/16 11/04/19 citalopram 40 mg PO DAILY 01/03/16 11/04/19 risperidone [Risperdal] 1.5 mg PO HS 01/03/16 11/04/19 levothyroxine [Synthroid] 75 mcg PO DAILY #90 tab 06/25/16 11/04/19 magnesium oxide 800 mg PO BID #60 tab 06/25/16 11/04/19 polyethylene glycol 3350 17 gm PO BID PRN PRN packet 06/25/16 11/04/19 epinephrine [EpiPen 2-Janes] 0.3 mg IM PRN PRN 07/10/16 11/04/19 omeprazole 40 mg PO DAILY 07/29/16 11/04/19 trazodone 100 mg PO HS PRN 08/04/16 11/04/19 zolpidem [Ambien] 10 mg PO HS PRN PRN 08/04/16 11/04/19 Trelegy Ellipta 1 inh INHALATION DAILY 08/03/18 11/04/19 lisinopril 5 mg PO DAILY 08/19/18 11/04/19 meloxicam 15 mg PO DAILY PRN 08/19/18 11/04/19 bupropion HCl 300 mg PO QAM 08/20/18 11/04/19 budesonide-formoterol [Symbicort] 2 puff INHALATION BID #6 gm 08/21/18 11/04/19 cyclobenzaprine 10 mg PO TID PRN 09/10/18 11/04/19 benzonatate 100 mg PO TID PRN #9 cap 09/15/18 11/04/19 guaifenesin [Mucinex] 600 mg PO BID #6 tab 09/15/18 11/04/19 alprazolam 2 mg PO BID 04/29/19 11/04/19 buspirone 15 mg PO BID 04/29/19 11/04/19 calcium carbonate-vitamin D3 1 tab PO DAILY 04/29/19 11/04/19 [Calcium 500 With D] nicotine (polacrilex) 4 mg PO Q30MIN PRN 04/29/19 11/04/19 oxycodone-acetaminophen [Percocet] 1 tab PO BID PRN 04/29/19 11/04/19 pregabalin [Lyrica] 50 mg PO TID 04/29/19 11/04/19 ipratropium-albuterol 3 ml UPD Q6H 30 Days #180 ml 04/30/19 11/04/19 multivitamin [Multiple Vitamins] 1 tab PO DAILY #30 tab 04/30/19 11/04/19 nicotine 21 mg TRANSDERMAL DAILY PRN PRN 04/30/19 11/04/19 #30 ea prednisone 10 mg PO DAILY #34 tab 04/30/19 11/04/19 thiamine mononitrate (vit B1) 100 mg PO DAILY #30 tab 04/30/19 11/04/19 [Vitamin B-1 (mononitrate)] Previous Rx's Medication Instructions Recorded levothyroxine [Synthroid] 75 mcg PO DAILY #90 tab 06/25/16 magnesium oxide 800 mg PO BID #60 tab 06/25/16 polyethylene glycol 3350 17 gm PO BID PRN PRN packet 06/25/16 budesonide-formoterol [Symbicort] 2 puff INHALATION BID #6 gm 08/21/18 benzonatate 100 mg PO TID PRN #9 cap 09/15/18 guaifenesin [Mucinex] 600 mg PO BID #6 tab 09/15/18 ipratropium-albuterol 3 ml UPD Q6H 30 Days #180 ml 04/30/19 multivitamin [Multiple Vitamins] 1 tab PO DAILY #30 tab 04/30/19 nicotine 21 mg TRANSDERMAL DAILY PRN PRN 04/30/19 #30 ea prednisone 10 mg PO DAILY #34 tab 04/30/19 thiamine mononitrate (vit B1) 100 mg PO DAILY #30 tab 04/30/19 [Vitamin B-1 (mononitrate)] Allergies Allergy/AdvReac Type Severity Reaction Status Date / Time venom-honey bee Allergy Severe Anaphylaxsi Verified 11/04/19 17:29 s General ADALBERTO: 3 Review of Systems Narrative: Constitutional: Negative for weight loss, alert and oriented, well groomed, normal body habitus, appears comfortable. HEENT: Denies trauma, headaches, blurry vision, nasal discharge, sore throat, trouble swallowing. Chest: Denies chest pain, palpitations, irregular rhythm, hypertension. Respiratory: Denies Shortness of breath, cough, hemoptysis. Has a history of pulmonary histocytosis with baseline expiratory wheezes. GI: Denies abdominal pain, nausea, vomiting, diarrhea, constipation. : Denies dysuria, hematuria, flank pain, rectal bleeding. Neuro: Denies dizziness, blurry vision, weakness, syncope, headache or facial numbness. Hematologic: Denies easy bruising, intolerance to heat or cold, hair loss. [facility] Medical History Anxiety disorder (Chronic) Bipolar disorder (Acute) COPD exacerbation (Resolved) Hypothyroidism (acquired) (Chronic) Nicotine dependence with current use (Chronic) Pulmonary histiocytosis x (Acute) Respiratory failure (Acute) Surgical History History of right shoulder replacement (Acute) Dr. Dee at [facility]. 5-6 years ago per pt. Hx of bilateral cataract extraction (Acute) [address] Santos. Hx of section (Chronic) x 2. Hx of hysterectomy (Chronic) 10 yrs ago, done in [place] per pt. Social History Smoking/Tobacco Use Status: Current every day Tobacco Type: cigarettes Tobacco: How many years used: 40 Alcohol Intake: current Alcohol Intake frequency: a few times a week Alcohol type: beer Counseling given: Yes Details: says she is in AA and talks to her sponsor daily, drinking at 9 am @ visit Drug use: Current Sobriety Substance use type: does not use Adopted: Yes Caregiver/Support person: No Foster care: Yes Household members: none Housing: apartment Number of Children: 1 number of grandchildren: 1 Pets and animals: No What is your relationship status?: How often do you get together with friends or relatives?: three or more times per week Panel score (0-1 are the most socially isolated patients): 1 What type of physical activity do you participate in: none Do you feel safe at home: Yes Do you feel safe in your relationship?: Yes Exam Narrative Exam Narrative: Constitutional: Alert and oriented x3. Appears stated age. Normal body habitus. Head: Normocephalic, no trauma. Eyes: Pupils PERRLA, Red reflex noted, EOM's intact. Eyelids symmetrical without lesions, discharge, or swelling. ENT: Bilateral TM's WNL, External ear normal to inspection, no mastoid TTP, swelling, or erythema, Nasal turbinates WNL, no nasal discharge. Normal dentition, Posterior pharynx WNL, no exudate. Chest: RRR, Normal S1, S2, distal pulses intact. Resp: Lungs expiratory wheezes bilaterally no, rales, or rhonchi. Musculoskeletal: Right CVA tenderness with palpation, positive right-sided straight leg test. Distal dorsiflexion and pedal flexion intact. Distal sensation intact. Skin: No suspicious rashes or lesions. Capillary refill less than 2 sec. Neurologic: Cranial nerves II-XII intact. Alert and oriented x 3. DTR's intact. Hematologic/Lymphatic: No ecchymosis, no lymphadenopathy.
--- NOTE | 2019-11-04 17:30 | DI.CT_ITS ---
EXAM: CT ABDOMEN PELVIS WO CLINICAL HISTORY: Right flank pain. TECHNIQUE: Imaging Protocol: Axial computed tomography images with coronal and sagittal reformatted images were created and reviewed. COMPARISON: CT ABD PELVIS WITH CONTRAST from 06/23/2016 CT CHEST FOR PULMONARY EMBOLUS from 07/18/[address] chest PE CTA from 04/15/2018 FINDINGS: ABDOMEN: Lung Bases: Scarring or atelectasis in the right middle lobe. Dependent atelectasis in the right michel g base. Liver: Normal density. No measurable mass. Gallbladder and biliary tract: Cholelithiasis. No biliary ductal dilatation. Pancreas: Normal density, no abnormal calcifications or inflammatory process. Spleen: Normal. Kidneys: Normal size, contour and axis.No radiodense stones or obstructive uropathy. No masses seen. Adrenal glands: No mass is seen. Lymph nodes: Within normal limits. Abdominal Aorta: Abdominal portion non-dilated. Atherosclerosis. PELVIS: Bladder:Symmetric distention, no gross wall thickening. Bowel: No obstruction or bowel wall thickening. No evidence of acute appendicitis. There is a small fat containing lesion arising from the distal descending colon likely reflecting epiploic fat but no inflammatory changes are seen to suggest an appendagitis. Peritoneal cavity: No ascites, collection or mesenteric inflammatory response Reproductive organs: The patient appears to be status post hysterectomy. Bones: Degenerative changes. Soft Tissues: Within normal limits. IMPRESSION: No acute abdominal pelvic process. No evidence of nephrolithiasis or hydronephrosis. Cholelithiasis. RADIATION DOSE DELIVERED: 1,019.7mGy.cm Total DLP DATA REPOSITORY: All CT scans at this facility are submitted to the National Radiology Data Registry (NRDR) Dose Index Registry (DIR) with the [employer] (ACR). RADIATION OPTIMIZATION: All CT scans at this facility use at least one of these dose optimization te chniques: automated exposure control; mA and/or kV adjustment per patient size (includes targeted exa ms where dose is matched to clinical indication); or iterative reconstruction.
[2019-11-04] MEDS: Normal Saline Flush 10 ML SYR IVP ×2 (18:14→19:50)
[2019-11-04] MEDS: Ketorolac 15 MG/ML VIAL IVP (18:15)
[2019-11-04 18:26] LABS: Abs Immature Grans 0.08 10^3/uL (0.0-0.06); Absolute Eosinophil Count 0.14 10^3/uL (0.0-0.7); Absolute Lymphocyte Count 2.18 10^3/uL (1.2-3.4); Absolute Monocyte Count 0.94 10^3/uL (0.1-0.8); Basophils % 0.2; Eosinophils % 1.1; HCT 35.5 % (36.0-46.0); HGB 11.5 g/dL (11.2-15.7); Immature Grans % 0.6; Lymphocytes % 17.6; MCH 30.2 pg (27.0-33.0); MCHC 32.4 % (32.0-36.0); MCV 93.2 fL (80-95); MPV 9.8 fL (8.0-11.0); Monocytes % 7.6; Neutrophils % 72.9; Nucleated RBC 0 %; Platelet Count 204 10^3/uL (130-400); RBC 3.81 10^6/uL (3.93-5.22); RDW 14.6 % (11.7-14.6); RDW-SD 50.4 fL; WBC 12.38 10^3/uL (4.4-10.8)
[2019-11-04 18:45] LABS: ALT 24 U/L (14-59); AST 23 U/L (15-37); Absolute Basophil Count 0.02 10^3/uL (0.0-0.2); Absolute Neutrophil Count 9.03 10^3/uL (1.2-6.7); Albumin 3.6 g/dL (3.4-5.0); Alkaline Phosphatase 71 U/L (46-116); Anion Gap 12.1 mmol/L (3-11); BUN 14 mg/dL (7-18); Bilirubin, Total 0.2 mg/dL (0.2-1.0); CO2 25.9 mmol/L (21.0-32.0); CREATININE 1.11 mg/dL (0.55-1.02); Chloride 99 mmol/L (98-107); Estimated GFR 50.66 (mL/min/1.73m2); Glucose 113 mg/dL (74-106); Sodium 137 mmol/L (136-145); Total Protein 6.8 g/dL (6.4-8.2)
--- NOTE | 2019-11-04 19:19 | DI.VRAD_ITS ---
PROCEDURE INFORMATION: Exam: CT Abdomen And Pelvis Without Contrast Exam date and time: 11/04/2019 17:39 Age: 59 years old Clinical indication: Other: RT sided flank pain TECHNIQUE: Imaging protocol: Computed tomography of the abdomen and pelvis without contrast. COMPARISON: CT ABD PELVIS WITH CONTRAST 06/23/2016 21:36 FINDINGS: Lungs: Mild dependent subsegmental atelectasis. Liver: No hepatic masses on noncontrast imaging. Gallbladder and bile ducts: Cholelithiasis. No pericholecystic edema. No significant biliary dilation or radiopaque stones in the biliary tree. Pancreas: No ductal dilation. No masses. Spleen: No splenomegaly or focal lesions. Adrenals: No mass. Kidneys and ureters: No nephrolithiasis or collecting system obstruction. Stomach and bowel: No obstruction. No mucosal thickening. Appendix: No evidence of appendicitis. Intraperitoneal space: No free air. No significant fluid collection. Vasculature: No abdominal aortic aneurysm. Lymph nodes: No significantly enlarged lymph nodes. Bladder: The urinary bladder is distended. No urinary bladder wall thickening. Reproductive: Hysterectomy. Bones/joints: Minor chronic appearing loss of height superior L1 endplate. Minor chronic appearing loss of height in the thoracic spine. Distal lumbar disc disease. No acute fracture or subluxation. Nonacute right sided rib deformities. Soft tissues: Mild dependent subcutaneous edema. IMPRESSION: 1. No acute findings. 2. No nephrolithiasis or collecting system obstruction. 3. Additional findings as described. Dictated and Authenticated by: Shelley Comer MD. Ordering:CHRISTI Monroe MD
[2019-11-04 19:21] LABS: Lipase 77 U/L (73-393)
[2019-11-04 19:39] LABS: Bilirubin Negative (Negative); Blood Negative (Negative); Clarity Clear (Clear); Glucose Negative (Negative); Ketones Negative (Negative); Leukocyte Esterase Negative (Negative); Nitrite Negative (Negative); Urobilinogen 0.2 EU/dL (Up TO 0.2)
[2019-11-04] MEDS: fentaNYL 100 MCG/2 ML VIAL 25 MCG IVP (19:50)
== END 2019-11-04 20:45 | disposition home or self-care (01) ==
PROVIDERS: Emergency Provider Registered Nurse Emergency; PCP Family Medicine
DX: K80.20 Calculus of gallbladder without cholecystitis without obstruction (principal); M54.5 Low back pain; J44.9 Chronic obstructive pulmonary disease, unspecified; F17.210 Nicotine dependence, cigarettes, uncomplicated
CPT/HCPCS: 36415; 80053; 83690; 96374; 96375; 99284; 74176; 81003; 85025; J1885; J3010

== ENCOUNTER 2019-11-12 03:36 | Emergency (ER) | payer MEDICAID, SELFPAY ==
[2019-11-12 03:25] VITALS: BP 159/69; PULSE 95; RESP 18; TEMP 36.7; O2SAT 100
--- NOTE | 2019-11-12 03:30 | DI.CT_ITS ---
EXAM: CT ABDOMEN PELVIS W CLINICAL HISTORY: constipation, lower back pain. TECHNIQUE: Imaging Protocol: Axial computed tomography images with coronal and sagittal reformatted images were created and reviewed CONTRAST MATERIAL: Intravenous: Omnipaque 350 Contrast volume:100 cc Oral: / no COMPARISON: CT CT ABDOMEN PELVIS WO from 11/04/2019 FINDINGS: ABDOMEN: Lung Bases: Dependent changes. Liver: Enlarged. Mild hepatic steatosis. No measurable mass. Gallbladder and biliary tract: Cholelithiasis is again noted. There is no biliary dilatation or gall bladder wall thickening. Pancreas: Normal density, no abnormal calcifications or inflammatory process. Spleen: Normal. Kidneys: Normal size, contour and axis. No radiodense stones or obstructive uropathy. No masses seen. Adrenal glands: No masses seen. Abdominal Aorta: Abdominal portion non-dilated. Aorta and iliac arteries are heavily calcified. PELVIS: Bladder: Symmetric distention, no gross wall thickening. Bowel: No obstruction or bowel wall thickening. Peritoneal cavity: No ascites, collection or mesenteric inflammatory response. Bones: Degenerative changes in the spine. Status post hysterectomy. Reproductive organs: Within normal limits. Lymph nodes: Unremarkable. Impression: Cholelithiasis. No evidence of acute cholecystitis. No acute abnormalities seen in the abdomen or p rosetta. RADIATION DOSE DELIVERED: Total DLP DATA REPOSITORY: All CT scans at this facility are submitted to the National Radiology Data Registry (NRDR) Dose Index Registry (DIR) with the [employer] (ACR). RADIATION OPTIMIZATION: All CT scans at this facility use at least one of these dose optimization te chniques: automated exposure control; mA and/or kV adjustment per patient size (includes targeted exa ms where dose is matched to clinical indication); or iterative reconstruction.
--- NOTE | 2019-11-12 03:36 | ED.GENADUL_ITS ---
Discharge Plan Disposition Patient Disposition: HOME Condition: Improving Discharge Details Chief Complaint: Nk/Back Pain Clinical Impression: Acute exacerbation of chronic low back pain, Chronic constipation Primary Care Provider: Remy Ortega ED Provider: Lilo Hackett Home Meds and New Rx's Prescriptions: New oxycodone 5 mg tablet 5 mg PO Q6H PRN (Reason: pain) Qty: 10 RF: 0 methocarbamol 500 mg tablet 500 mg PO Q6H PRN (Reason: muscle spasm) Qty: 14 RF: 0 Continued albuterol sulfate [ProAir HFA] 8.5 GM HFA aerosol inhaler 2 puff Inhalation Q4H PRN PRNRF: 0 citalopram 40 MG tablet 40 mg PO DAILY RF: 0 risperidone [Risperdal] 1 MG tablet 1.5 mg PO HS RF: 0 omeprazole 20 MG capsule,delayed release(DR/EC) 40 mg PO DAILY RF: 0 trazodone 100 MG tablet 100 mg PO HS PRNRF: 0 zolpidem [Ambien] 5 MG tablet 10 mg PO HS PRN PRNRF: 0 levothyroxine [Synthroid] 75 MCG tablet 75 mcg PO DAILY Qty: 90 RF: 0 polyethylene glycol 3350 17 GM powder in packet 17 gm PO BID PRN PRNRF: 0 magnesium oxide 400 MG tablet 800 mg PO BID Qty: 60 RF: 2 Trelegy Ellipta 100-62.5-25 mcg Blister With Device 1 inh INHALATION DAILY RF: 0 cyclobenzaprine 10 mg Tablet 10 mg PO TID PRNRF: 0 epinephrine [EpiPen 2-Janes] 0.3 MG/0.3 ML auto-injector 0.3 mg IM PRN PRNRF: 0 lisinopril 5 mg Tablet 5 mg PO DAILY RF: 0 meloxicam 15 mg Tablet 15 mg PO DAILY PRNRF: 0 bupropion HCl 300 mg Tablet Extended Release 24 Hr 300 mg PO QAM RF: 0 budesonide-formoterol [Symbicort] 160-4.5 mcg/actuation Hfa Aerosol Inhaler 2 puff Inhalation BID Qty: 6 RF: 0 oxycodone-acetaminophen [Percocet] 5-325 mg Tablet 1 tab PO BID PRNRF: 0 nicotine (polacrilex) 4 mg Gum 4 mg PO Q30MIN PRNRF: 0 buspirone 15 mg Tablet 15 mg PO BID RF: 0 alprazolam 2 mg Tablet Extended Release 24 Hr 2 mg PO BID RF: 0 calcium carbonate-vitamin D3 [Calcium 500 With D] 500 mg(1,250mg) -400 unit Tablet 1 tab PO DAILY RF: 0 pregabalin [Lyrica] 50 mg Capsule 50 mg PO TID RF: 0 multivitamin [Multiple Vitamins] Tablet 1 tab PO DAILY Qty: 30 RF: 0 nicotine 21 mg/24 hr Patch 24 Hour 21 mg transdermal DAILY PRN PRNQty: 30 RF: 0 thiamine mononitrate (vit B1) [Vitamin B-1 (mononitrate)] 100 mg Tablet 100 mg PO DAILY Qty: 30 RF: 0 prednisone 10 mg tablet 10 mg PO DAILY Qty: 34 RF: 0 ipratropium-albuterol 3 ML solution for nebulization 3 ml UPD Q6H 30 Days Qty: 180 RF: 1 Discharge Instructions Instructions: Constipation (ED), Low Back Strain (ED) Additional Instructions: Alternate ice and heat to the affected area(s) several times daily for 20 minutes at a time. For your constipation, you should take a daily stool softener such as Colace or natural options such as prune juice. Other options include MiraLAX, suppositories, enemas. You can also try [id number] magnesium citrate to use as directed. Take the oxycodone as needed and directed for pain. Take the muscle relaxer methocarbamol as directed. Follow-up with your scheduled appointment with your primary care doctor on Wednesday for reevaluation and continued management of your chronic pain and whether referral to pain management is necessary. Return immediately to the emergency department if you develop any worsening or new concerning symptoms. Discharge Data Discharge Physician: Lilo Hackett Medical Decision Making [id number] -- 59-year-old female with a history of anxiety, depression, previous alcohol abuse with Wernicke's Korsakoff syndrome, hypothyroidism, COPD on chronic steroids who presents for mid to lower back pain and constipation for the past 2 weeks. No cauda equina symptoms. Vitals within normal limits. She appears uncomfortable but nontoxic. Her abdomen is mildly distended but nontender. She has bilateral lower thoracic paraspinal tenderness. No evidence of trauma, cellulitis or step-off. No focal deficits. She is neurovascular intact. Differential diagnosis includes strain, spasm, sciatica, UTI, pyelonephritis, small bowel obstruction, less likely kidney stone. Will place an IV, bolus IV fluids, screening labs, urinalysis, CT abdomen and pelvis to rule out acute process, given a dose of Decadron IV, Toradol, oxycodone and Valium and reasse ss. 0500 --labs and imaging reviewed and unremarkable. Urinalysis negative. CT negative for acute abdominal finding but does note degenerative changes in the lower lumbar spine. Patient reassessed and she states she feels better and feels good to go home. She was able to move around and ambulate. Patient states she has a follow-up appointment with her primary care doctor on Wednesday to refill her oxycodone. Review of [place] prescription monitoring system notes that patient has received 56 tabs of oxycodone/acetaminophen 5/325 mg once monthly over the past year per her PCP office for her chronic shoulder and back pain. Patient given a prescription for oxycodone for the next few days until follow-up with her PCP. She was given recommendations for her chronic constipation and also discussed that this could likely be caused or exacerbated by her chronic narcotic use. Usual and customary return precautions given prior to discharge. Medical Records Medical records reviewed: Yes I reviewed the patient's medical records. Lab Data Lab results reviewed: Yes I reviewed the patient's lab results. Labs: Laboratory Tests Range/Units 11/12/19 11/12/19 11/12/19 04:00 04:00 04:50 WBC (4.4-10.8) 10^3/uL 8.61 RBC (3.93-5.22) 10^6/uL 3.79 L Hgb (11.2-15.7) g/dL 11.3 Hct (36.0-46.0) % 34.5 L MCV (80-95) fL 91.0 MCH (27.0-33.0) pg 29.8 MCHC (32.0-36.0) % 32.8 RDW (11.7-14.6) % 14.0 Plt Count (130-400) 10^3/uL 197 MPV (8.0-11.0) fL 9.4 Immature Gran % 1.0 Neutrophils % 70.0 Lymphocytes % 16.5 Monocytes % 9.3 Eosinophils % 2.7 Basophils % 0.5 Nucleated RBC % % 0 Absolute Neutrophils (1.2-6.7) 10^3/uL 6.03 Absolute Lymphocytes (1.2-3.4) 10^3/uL 1.42 Absolute Monocytes (0.1-0.8) 10^3/uL 0.80 Absolute Eosinophils (0.0-0.7) 10^3/uL 0.23 Absolute Basophils (0.0-0.2) 10^3/uL 0.04 Sodium (136-145) mmol/L 132 L Potassium (3.5-5.1) mmol/L 4.0 Chloride (98-107) mmol/L 95 L Carbon Dioxide (21.0-32.0) mmol/L 30.3 Anion Gap (3-11) mmol/L 6.7 BUN (7-18) mg/dL 9 Creatinine (0.55-1.02) mg/dL 0.97 Estimated GFR/1.73 m2 (mL/min/1.73m2) 59.19 Glucose (74-106) mg/dL 90 Calcium (8.5-10.1) mg/dL 8.9 Total Bilirubin (0.2-1.0) mg/dL 0.4 AST (15-37) U/L 26 ALT (14-59) U/L 22 Alkaline Phosphatase (46-116) U/L 86 Total Protein (6.4-8.2) g/dL 6.9 Albumin (3.4-5.0) g/dL 3.4 Urine Color (Yellow) Yellow Urine Clarity (Clear) Clear Urine pH (5-8) 7.0 Ur Specific Stanley (1.005-1.025) 1.020 Urine Protein (Negative) mg/dL Negative Urine Ketones (Negative) mg/dL Trace H Urine Blood (Negative) Negative Urine Nitrite (Negative) Negative Urine Bilirubin (Negative) Negative Urine Urobilinogen (Up TO 0.2) EU/dL 0.2 Ur Leukocyte Esterase (Negative) Negative Urine Glucose (Negative) mg/dL Negative HPI General Mode of arrival: EMS . Date/Time Provider Initiated Documentation: 11/12/19 03:38 . Limitations to Documentation: no limitations . Information obtained by: patient . HPI Narrative: Patient is a 59-year-old female with a history of anxiety, bipolar, COPD, hypothyroidism, former alcohol abuse, Wernicke's Korsakoff syndrome who presents for and back pain and constipation for the past 2 weeks. Patient states she has had back pain previously in the past as well as sciatica but states this feels different than her previous sciatic pain. She states the pain is in her bilateral mid to lower back, worst with movement, position and to palpation. She denies any known injury. She was seen here recently for similar pain but with radiation down her leg and diagnosed with sciatica but she states this feels different from that. She was taking oxycodone for her back pain prescribed by her primary care doctor with relief but she ran out of this 2 days ago. She states her last bowel movement was small and hard with minimal surrounding mucus and liquid 2 days ago. She states normally she only has 1 bowel movement weekly. She denies any fever, chest pain, shortness of breath, abdominal pain, nausea, vomiting or urinary symptoms. She denies saddle anesthesia, bowel or bladder incontinence, leg pain, numbness or weakness. She has not taken any medication for pain or constipation today for her symptoms. Related Data Home Medications Medication Instructions Recorded Confirmed albuterol sulfate [ProAir HFA] 2 puff INHALATION Q4H PRN PRN 01/01/16 11/12/19 citalopram 40 mg PO DAILY 01/03/16 11/12/19 risperidone [Risperdal] 1.5 mg PO HS 01/03/16 11/12/19 levothyroxine [Synthroid] 75 mcg PO DAILY #90 tab 06/25/16 11/12/19 magnesium oxide 800 mg PO BID #60 tab 06/25/16 11/12/19 polyethylene glycol 3350 17 gm PO BID PRN PRN packet 06/25/16 11/12/19 epinephrine [EpiPen 2-Janes] 0.3 mg IM PRN PRN 07/10/16 11/12/19 omeprazole 40 mg PO DAILY 07/29/16 11/12/19 trazodone 100 mg PO HS PRN 08/04/16 11/12/19 zolpidem [Ambien] 10 mg PO HS PRN PRN 08/04/16 11/12/19 Trelegy Ellipta 1 inh INHALATION DAILY 08/03/18 11/12/19 lisinopril 5 mg PO DAILY 08/19/18 11/12/19 meloxicam 15 mg PO DAILY PRN 08/19/18 11/12/19 bupropion HCl 300 mg PO QAM 08/20/18 11/12/19 budesonide-formoterol [Symbicort] 2 puff INHALATION BID #6 gm 08/21/18 11/12/19 cyclobenzaprine 10 mg PO TID PRN 09/10/18 11/12/19 alprazolam 2 mg PO BID 04/29/19 11/12/19 buspirone 15 mg PO BID 04/29/19 11/12/19 calcium carbonate-vitamin D3 1 tab PO DAILY 04/29/19 11/12/19 [Calcium 500 With D] nicotine (polacrilex) 4 mg PO Q30MIN PRN 04/29/19 11/12/19 oxycodone-acetaminophen [Percocet] 1 tab PO BID PRN 04/29/19 11/12/19 pregabalin [Lyrica] 50 mg PO TID 04/29/19 11/12/19 ipratropium-albuterol 3 ml UPD Q6H 30 Days #180 ml 04/30/19 11/12/19 multivitamin [Multiple Vitamins] 1 tab PO DAILY #30 tab 04/30/19 11/12/19 nicotine 21 mg TRANSDERMAL DAILY PRN PRN 04/30/19 11/12/19 #30 ea prednisone 10 mg PO DAILY #34 tab 04/30/19 11/12/19 thiamine mononitrate (vit B1) 100 mg PO DAILY #30 tab 04/30/19 11/12/19 [Vitamin B-1 (mononitrate)] methocarbamol 500 mg PO Q6H PRN #14 tab 11/12/19 oxycodone 5 mg PO Q6H PRN #10 tab 11/12/19 Previous Rx's Medication Instructions Recorded levothyroxine [Synthroid] 75 mcg PO DAILY #90 tab 06/25/16 magnesium oxide 800 mg PO BID #60 tab 06/25/16 polyethylene glycol 3350 17 gm PO BID PRN PRN packet 06/25/16 budesonide-formoterol [Symbicort] 2 puff INHALATION BID #6 gm 08/21/18 ipratropium-albuterol 3 ml UPD Q6H 30 Days #180 ml 04/30/19 multivitamin [Multiple Vitamins] 1 tab PO DAILY #30 tab 04/30/19 nicotine 21 mg TRANSDERMAL DAILY PRN PRN 04/30/19 #30 ea prednisone 10 mg PO DAILY #34 tab 04/30/19 thiamine mononitrate (vit B1) 100 mg PO DAILY #30 tab 04/30/19 [Vitamin B-1 (mononitrate)] methocarbamol 500 mg PO Q6H PRN #14 tab 11/12/19 oxycodone 5 mg PO Q6H PRN #10 tab 11/12/19 Allergies Allergy/AdvReac Type Severity Reaction Status Date / Time venom-honey bee Allergy Severe Anaphylaxsi Verified 11/04/19 17:29 s General Stated Complaint: Nk/Back Pain ADALBERTO: 3 Review of Systems All systems reviewed & are unremarkable except as noted in HPI and below Constitutional Constitutional: Reports as per HPI, Denies chills and Denies fever(s) Eyes Eyes: Denies blurry vision ENT Ears, Nose, Mouth, and Throat: Denies dizziness, Denies sore throat and Denies throat swelling Cardiovascular Cardiovascular: Denies chest pain and Denies dyspnea Respiratory Respiratory: Denies cough and Denies dyspnea Gastrointestinal Gastrointestinal: Denies abdominal pain, Reports constipation, Denies diarrhea and Denies vomiting Genitourinary Genitourinary: Denies hematuria and Denies dysuria Musculoskeletal Musculoskeletal: Reports back pain and Denies numbness Integumentary/Breasts Skin/Breast: Denies lesions and Denies rash Neurologic Neurologic: Denies dizziness, Denies localized weakness and Denies numbness Allergic/Immunologic Allergic/Immunologic: Denies throat swelling [facility] Medical History (Updated 11/12/19 @ 05:23 by Lilo Hackett DO) Anxiety disorder (Chronic) Bipolar disorder (Acute) COPD exacerbation (Resolved) Hypothyroidism (acquired) (Chronic) Nicotine dependence with current use (Chronic) Pulmonary histiocytosis x (Acute) Respiratory failure (Acute) Surgical History History of right shoulder replacement (Acute) Dr. Dee at [facility]. 5-6 years ago per pt. Hx of bilateral cataract extraction (Acute) [address] Santos. Hx of section (Chronic) x 2. Hx of hysterectomy (Chronic) 10 yrs ago, done in [place] per pt. Social History Smoking/Tobacco Use Status: Current every day Tobacco Type: cigarettes Tobacco: How many years used: 40 Alcohol Intake: current Alcohol Intake frequency: a few times a week Alcohol type: beer Counseling given: Yes Details: says she is in AA and talks to her sponsor daily, drinking at 9 am @ visit Drug use: Current Sobriety Substance use type: does not use Adopted: Yes Caregiver/Support person: No Foster care: Yes Household members: none Housing: apartment Number of Children: 1 number of grandchildren: 1 Pets and animals: No What is your relationship status?: How often do you get together with friends or relatives?: three or more times per week Panel score (0-1 are the most socially isolated patients): 1 What type of physical activity do you participate in: none Do you feel safe at home: Yes Do you feel safe in your relationship?: Yes Exam Const General: cooperative, uncomfortable and no acute distress Orientation: alert, awake and oriented x3 HENMT Head: normal to inspection Face and sinus: normal facial exam Eyes General: appearance normal, both eyes and all related structures EOM: EOM intact bilaterally Neck Neck: normal visual inspection and No submandibular swelling Lymphatic: no lymphadenopathy noted Chest Chest: normal inspection of the chest and no tenderness Resp Effort & Inspection: normal respiratory effort and able to speak in complete sentences Auscultation: clear to auscultation bilaterally Cardio Rate: regular rate Rhythm: regular rhythm GI Inspection: normal to inspection, distended (Minimal) and obesity Palpation: soft, not firm, not rigid and nontender Auscultation: normal bowel sounds Back/Spine/Pelvis Thoracic/Lumbar Spine: thoracic and lumbar spine normal to inspection, straight leg raise negative bilaterally, paraspinal tenderness (Bilateral lower thoracic), No thoracic spinal tenderness and No lumbar spinal tenderness Pelvis: no pain with anterior-posterior compression Skin General skin exam: no rashes or lesions noted Neuro General: patient alert, patient awake and patient oriented x3 Cognition: normal cognition Speech: speech normal Motor: muscle tone normal throughout and strength 5/5 throughout Sensory Exam: no sensory deficits noted DTR's: Rt Patellar: 1+, Lt Patellar: 1+, Rt Ankle: 1+ and Lt Ankle: 1+ Plantar Reflexes: Equivocal: bilateral (negative babinski b/l ) Extrem General: normal to inspection, full ROM, capillary refill normal, no calf tenderness bilaterally and no edema Other: Bilateral DP/PT pulses intact. Psych Appearance: grossly normal Mental Status: mental status grossly normal Speech and Movement: speech and movement normal Affect: normal affect Course Vital Signs Vital signs: Vital Signs Temperature 98.1 F 11/12/19 03:25 Pulse 95 H 11/12/19 03:25 Respiratory Rate 18 11/12/19 03:25 Blood Pressure 159/69 H 11/12/19 03:25 Pulse Oximetry 100 11/12/19 03:25 Temperature 98.1 F 11/12/19 03:25 Temperature Source Skin 11/12/19 03:25 Pulse 95 H 11/12/19 03:25 Respiratory Rate 18 11/12/19 03:25 Blood Pressure 159/69 H 11/12/19 03:25 Pulse Oximetry 100 11/12/19 03:25
[2019-11-12] MEDS: Omnipaque 350 MG/ML 100 ML BTL IJ (03:43)
[2019-11-12] MEDS: Normal Saline - Diluent 50 ML VIAL IV (03:44)
[2019-11-12] MEDS: diazePAM 5 MG TAB PO (04:08)
[2019-11-12] MEDS: oxyCODONE 10 MG TAB PO (04:08)
[2019-11-12] MEDS: Normal Saline 500 ML IV (04:09)
[2019-11-12] MEDS: Dexamethasone 10 MG/ML VIAL IVP (04:09)
[2019-11-12] MEDS: Ketorolac 30 MG/ML VIAL IVP (04:09)
[2019-11-12 04:10] LABS: Abs Immature Grans 0.09 10^3/uL (0.0-0.06); Absolute Basophil Count 0.04 10^3/uL (0.0-0.2); Absolute Eosinophil Count 0.23 10^3/uL (0.0-0.7); Absolute Lymphocyte Count 1.42 10^3/uL (1.2-3.4); Absolute Neutrophil Count 6.03 10^3/uL (1.2-6.7); Basophils % 0.5; Eosinophils % 2.7; HCT 34.5 % (36.0-46.0); HGB 11.3 g/dL (11.2-15.7); Lymphocytes % 16.5; MCH 29.8 pg (27.0-33.0); MCHC 32.8 % (32.0-36.0); MPV 9.4 fL (8.0-11.0); Monocytes % 9.3; Nucleated RBC 0 %; Platelet Count 197 10^3/uL (130-400); RBC 3.79 10^6/uL (3.93-5.22); RDW-SD 47.3 fL; WBC 8.61 10^3/uL (4.4-10.8)
[2019-11-12 04:36] LABS: ALT 22 U/L (14-59); AST 26 U/L (15-37); Albumin 3.4 g/dL (3.4-5.0); Alkaline Phosphatase 86 U/L (46-116); Anion Gap 6.7 mmol/L (3-11); BUN 9 mg/dL (7-18); Bilirubin, Total 0.4 mg/dL (0.2-1.0); CO2 30.3 mmol/L (21.0-32.0); CREATININE 0.97 mg/dL (0.55-1.02); Calcium 8.9 mg/dL (8.5-10.1); Chloride 95 mmol/L (98-107); Estimated GFR 59.19 (mL/min/1.73m2); Glucose 90 mg/dL (74-106); Sodium 132 mmol/L (136-145); Total Protein 6.9 g/dL (6.4-8.2)
--- NOTE | 2019-11-12 04:47 | DI.VRAD_ITS ---
PROCEDURE INFORMATION: Exam: CT Abdomen And Pelvis With Contrast Exam date and time: 11/12/2019 3:34 AM Age: 59 years old Clinical indication: Patient HX: Constipation, lower back pain; Additional info: R/O sbo, lumbar disc herniation TECHNIQUE: Imaging protocol: Computed tomography of the abdomen and pelvis with intravenous contrast. COMPARISON: CT ABDOMEN PELVIS WO 11/04/2019 6:45 PM FINDINGS: Liver: Question early cirrhotic morphology of the liver, clinically correlate. Gallbladder and bile ducts: Cholelithiasis. Pancreas: Normal. No ductal dilation. Spleen: Normal. No splenomegaly. Adrenals: Normal. No mass. Kidneys and ureters: Normal. No hydronephrosis. Stomach and bowel: Unremarkable. No obstruction. No mucosal thickening. Appendix: No evidence of appendicitis. Intraperitoneal space: Unremarkable. No free air. No significant fluid collection. Vasculature: Unremarkable. No abdominal aortic aneurysm. Lymph nodes: Unremarkable. No enlarged lymph nodes. Bladder: Unremarkable as visualized. Reproductive: Status post hysterectomy. Bones/joints: Degenerative change of the lower lumbar spine with at least mild canal and neural foraminal stenosis.. No acute fracture. Soft tissues: Unremarkable. IMPRESSION: No acute finding. Dictated and Authenticated by: Angel Roland MD. Ordering:ANDREA Nagy MD
[2019-11-12 05:01] LABS: Bilirubin Negative (Negative); Blood Negative (Negative); Clarity Clear (Clear); Glucose Negative (Negative); Ketones Trace mg/dL (Negative); Leukocyte Esterase Negative (Negative); Nitrite Negative (Negative); Urobilinogen 0.2 EU/dL (Up TO 0.2)
[2019-11-12 05:53] VITALS: BP 141/82; PULSE 98; RESP 20; O2SAT 93
== END 2019-11-12 06:30 | disposition home or self-care (01) ==
LOC: ER 06:08
PROVIDERS: Emergency Provider Physician Assistant; PCP Family Medicine
DX: M54.5 Low back pain (principal); G89.29 Other chronic pain; K59.09 Other constipation; J44.9 Chronic obstructive pulmonary disease, unspecified; F17.210 Nicotine dependence, cigarettes, uncomplicated
CPT/HCPCS: 80053; 96361; 96374; 96375; 99285; 74177; 81003; 85025; 99284; J1100; J1885; J3490

== ENCOUNTER 2019-11-16 15:26 | Emergency (ER) | payer MEDICAID, SELFPAY ==
[2019-11-16] VITALS (38 sets, daily range): BP systolic 93–165; BP diastolic 48–123; PULSE 84–99; RESP 12–32; TEMP 36.3; O2SAT 96–100
[2019-11-16 16:50] LABS: Abs Immature Grans 0.08 10^3/uL (0.0-0.06); Absolute Basophil Count 0.03 10^3/uL (0.0-0.2); Absolute Lymphocyte Count 1.13 10^3/uL (1.2-3.4); Absolute Monocyte Count 0.85 10^3/uL (0.1-0.8); Basophils % 0.3; Eosinophils % 1.7; HCT 34.6 % (36.0-46.0); HGB 11.3 g/dL (11.2-15.7); Immature Grans % 0.7; Lymphocytes % 9.8; MCH 29.9 pg (27.0-33.0); MCHC 32.7 % (32.0-36.0); MCV 91.5 fL (80-95); MPV 9.9 fL (8.0-11.0); Monocytes % 7.4; Neutrophils % 80.1; Nucleated RBC 0 %; Platelet Count 269 10^3/uL (130-400); RBC 3.78 10^6/uL (3.93-5.22); RDW 13.9 % (11.7-14.6); RDW-SD 47.1 fL
[2019-11-16 16:52] LABS: Absolute Neutrophil Count 9.21 10^3/uL (1.2-6.7)
[2019-11-16 16:57] LABS: Bilirubin Negative (Negative); Blood Negative (Negative); Clarity Clear (Clear); Glucose Negative (Negative); Ketones Negative (Negative); Leukocyte Esterase Trace (Negative); Nitrite Negative (Negative); Urobilinogen 0.2 EU/dL (Up TO 0.2)
[2019-11-16] MEDS: Normal Saline 1,000 ML 125 ML IV (17:00)
[2019-11-16 17:04] LABS: ALT 24 U/L (14-59); AST 25 U/L (15-37); Albumin 3.7 g/dL (3.4-5.0); Alkaline Phosphatase 95 U/L (46-116); Anion Gap 10.6 mmol/L (3-11); BUN 10 mg/dL (7-18); Bilirubin, Total 0.3 mg/dL (0.2-1.0); CO2 26.4 mmol/L (21.0-32.0); CREATININE 0.93 mg/dL (0.55-1.02); Calcium 9.2 mg/dL (8.5-10.1); Chloride 96 mmol/L (98-107); Glucose 94 mg/dL (74-106); Lipase 80 U/L (73-393); Potassium 3.9 mmol/L (3.5-5.1); Sodium 133 mmol/L (136-145); Total Protein 7.3 g/dL (6.4-8.2)
[2019-11-16 17:07] LABS: Bacteria Negative HPF (Negative); C & S Indicated? Yes; Crystals Negative HPF (Negative); Epithelial Cells Negative HPF (Negative); Mucus Negative (Negative); Other Cells Few Transitional (Negative); RBC Negative HPF (0-2); WBC 0-2 HPF (0-5)
--- NOTE | 2019-11-16 17:15 | RT.EKG_ITS ---
APPROVED REPORT Exam: Resting ECG Patient Location: E HR:89 bpm ECG Measurements Heart Rate 89 AXIS VA 177 P 52 QRSd 85 QRS -31 QT 395 T 49 QTc 482 Conclusion Sinus rhythm...normal P axis, V-rate 60- 99 Inferior infarct, old...Q >35mS, II III aVF
[2019-11-16 17:47] LABS: Troponin I < 0.05 ng/mL (<0.06)
[2019-11-16] MEDS: Omnipaque 350 MG/ML 100 ML BTL IJ (18:36)
[2019-11-16] MEDS: Normal Saline Flush 10 ML SYR IVP (18:37)
[2019-11-16] MEDS: Normal Saline - Diluent 50 ML VIAL IV (18:37)
--- NOTE | 2019-11-16 18:37 | DI.CT_ITS ---
EXAM: CT ABDOMEN PELVIS W CLINICAL HISTORY: Continuing epigastric discomfort, mild leukocytosi. TECHNIQUE: Imaging Protocol: Axial computed tomography images with coronal and sagittal reformatted images were created and reviewed CONTRAST MATERIAL: Intravenous: Omnipaque 350 Contrast volume:100 ml Oral: no COMPARISON: CT CT chest PE CTA from 04/15/[address] ABDOMEN PELVIS WO from 11/04/[address] ABDOMEN PELVIS W from 11/12/2019 FINDINGS: There is mild atelectasis at the right lung base. Heart size is normal. Coronary artery calcificati ons are seen. There are subacute appearing right rib fractures as well as a few older subacute appea ring anterior left rib fractures. The right diaphragm is mildly elevated. There is mild fatty infil tration. Cholelithiasis is noted. No biliary dilatation or gallbladder wall thickening is seen. Th is appears unchanged from the previous exam. The spleen, adrenals, pancreas and kidneys are unremark able. There is no bowel dilatation or wall thickening. Stool is seen in the right side of the colon . The remainder of the colon is free of stool. Patient is status post hysterectomy. The bladder is unremarkable. The aorta is calcified. There is some reduction in the luminal diameter there is a s evere compression fracture T9 which is unchanged from the previous exam is progressed since 04 November 2019.. Impression: No acute abnormality is identified. There is cholelithiasis but no evidence of acute cholecystitis. Severe compression fracture of T9 is again noted. There are bilateral subacute or old rib fractures . RADIATION DOSE DELIVERED: Total DLP DATA REPOSITORY: All CT scans at this facility are submitted to the National Radiology Data Registry (NRDR) Dose Index Registry (DIR) with the [employer] (ACR). RADIATION OPTIMIZATION: All CT scans at this facility use at least one of these dose optimization te chniques: automated exposure control; mA and/or kV adjustment per patient size (includes targeted exa ms where dose is matched to clinical indication); or iterative reconstruction.
--- NOTE | 2019-11-16 19:12 | DI.VRAD_ITS ---
PROCEDURE INFORMATION: Exam: CT Abdomen And Pelvis With Contrast Exam date and time: 11/16/2019 5:52 PM Age: 59 years old Clinical indication: Other: Continuing epigastric discomfort, mild leukocytosi TECHNIQUE: Imaging protocol: Computed tomography of the abdomen and pelvis with intravenous contrast. Radiation optimization: All CT scans at this facility use at least one of these dose optimization techniques: automated exposure control; mA and/or kV adjustment per patient size (includes targeted exams where dose is matched to clinical indication); or iterative reconstruction. Contrast material: OMNIPAQUE 350; Contrast volume: 100 ml; Contrast route: INTRAVENOUS (IV); COMPARISON: CT ABDOMEN PELVIS W 11/12/2019 4:30 AM FINDINGS: Lungs: Streaky and platelike atelectasis at the right lung base. Diaphragm: Mild elevation of the right hemidiaphragm. Liver: Normal appearing liver. Gallbladder and bile ducts: Prominent gallbladder distension. Multiple small peripherally calcified gallstones. No intrahepatic or extrahepatic biliary dilatation. No pericholecystic fat stranding. Pancreas: Normal appearing pancreas. Spleen: Normal appearing spleen. Adrenals: Normal appearing adrenal glands. Kidneys and ureters: Normal appearing kidneys. No hydronephrosis. Stomach and bowel: No oral contrast. Stomach partially decompressed. No small bowel dilatation to suggest obstruction. Moderate retained fecal material through the cecum, ascending colon, and proximal transverse colon. Distal transverse colon, descending colon, sigmoid colon, and rectum completely evacuated of fecal material, collapsed, and apparently thick-walled. Artifact of incomplete distention? Acute segmental colitis? Ring-like density in the fat anterior to the distal descending colon on image 67 of series 4, uncertain etiology but possibly a region of evolving or resolving epiploic appendagitis, stable compared with the recent prior exam. Appendix: Appendix not identified, obscured if present. Correlation with surgical history recommended. Intraperitoneal space: No gross ascites or free air. Vasculature: Normal caliber abdominal aorta. Lymph nodes: No pathologically enlarged mesenteric, retroperitoneal, or pelvic sidewall lymph nodes. Bladder: Normal appearing urinary bladder. Reproductive: Prior hysterectomy. Ovaries not identified, obscured if present. Correlation with surgical history recommended. Bones/joints: Subacute fractures through the anterolateral aspect of the right 5th-9th ribs with bony callus formation but incomplete bony union, also seen on the comparison exam from November 11. Subacute fractures through the anterolateral aspect of the left 4th-9th ribs with bony callus formation but incomplete bony union, also seen on the comparison exam from November 11. Compression/burst type fracture at T9 with severe loss of vertebral height, progressed since the comparison exam from November 12, 2019 with a new acute-subacute fracture component. Superior endplate compression deformity at L1 with mild loss of vertebral height and a tiny Schmorl's node, also seen on the comparison exam, stable. Soft tissues: No significant ventral or inguinal hernia. IMPRESSION: 1. Prominent gallbladder distension. Multiple small calcified gallstones. Clinical correlation is recommended to assess the possibility of acute cholecystitis in a patient with upper abdominal pain. 2. Mural thickening through the collapsed well evacuated distal transverse colon, descending colon, sigmoid colon, and rectum. Artifact of incomplete distention or acute proctocolitis could have this appearance. Clinical correlation is recommended. Of note, the appearance was similar on the comparison exam from November 11; however, mural thickening appears more prominent on today's exam. 3. Compression/burst type fracture at T9 with severe loss of vertebral height, progressed since the comparison exam from November 12, 2019 with a new acute-subacute fracture component. 4. Multiple subacute bilateral rib fractures with bony callus formation but incomplete bony union, also seen on the comparison exam November 12, 2019. Dictated and Authenticated by: Bladimir Lua MD. Ordering:ZACK Matamoros MD
[2019-11-16 19:43] LABS: Troponin I < 0.05 ng/mL (<0.06)
--- NOTE | 2019-11-16 20:16 | ED.GENADUL_ITS ---
Discharge Plan Disposition Patient Disposition: AGAINST MEDICAL ADVICE Discharge Details Clinical Impression: Abdominal pain, Burst fracture of T9 vertebra Primary Care Provider: Remy Ortega ED Provider: Saturnino Potter Home Meds and New Rx's Prescriptions: Continued albuterol sulfate [ProAir HFA] 8.5 GM HFA aerosol inhaler 2 puff Inhalation Q4H PRN PRNRF: 0 citalopram 40 MG tablet 40 mg PO DAILY RF: 0 risperidone [Risperdal] 1 MG tablet 1 mg PO HS RF: 0 trazodone 100 MG tablet 100 mg PO HS PRNRF: 0 zolpidem [Ambien] 5 MG tablet 10 mg PO HS PRN PRNRF: 0 levothyroxine [Synthroid] 75 MCG tablet 75 mcg PO DAILY Qty: 90 RF: 0 polyethylene glycol 3350 17 GM powder in packet 17 gm PO BID PRN PRNRF: 0 magnesium oxide 400 MG tablet 800 mg PO BID Qty: 60 RF: 2 Trelegy Ellipta 100-62.5-25 mcg Blister With Device 1 inh INHALATION DAILY RF: 0 cyclobenzaprine 10 mg Tablet 10 mg PO TID PRNRF: 0 methocarbamol 500 mg tablet 500 mg PO Q6H PRN (Reason: muscle spasm) Qty: 14 RF: 0 diclofenac sodium 1 % gel 1 applic TOPICAL QID PRNRF: 0 omeprazole 40 mg capsule,delayed release(DR/EC) 40 mg PO DAILY RF: 0 cyanocobalamin (vitamin B-12) [Vitamin B-12] 1,000 mcg tablet 1,000 mcg PO DAILY RF: 0 aspirin 81 mg Tablet,Delayed Release (Dr/Ec) 81 mg PO DAILY RF: 0 folic acid 1 mg Tablet 1 mg PO DAILY RF: 0 gemfibrozil 600 mg Tablet 600 mg PO BID RF: 0 ibuprofen 800 mg Tablet 800 mg PO TID RF: 0 guaifenesin [Mucinex] 600 mg Tablet Extended Release 12hr 600 mg PO BID RF: 0 Narcan 4 mg/actuation Check,Non-Aerosol 4 mg intranasal PRN PRNRF: 0 nystatin 100,000 unit/gram Cream 1 applic TOPICAL BID RF: 0 nystatin 100,000 unit/gram Powder 1 applic TOPICAL BID RF: 0 nystatin 100,000 unit/mL Suspension 5 ml PO PRN PRNRF: 0 oxycodone 5 mg Tablet 5 mg PO Q6H PRNRF: 0 benzonatate [Tessalon Perles] 100 mg Capsule 100 mg PO TID PRNRF: 0 diclofenac sodium [Voltaren] 1 % Gel 2 g TOPICAL QID RF: 0 epinephrine [EpiPen 2-Janes] 0.3 MG/0.3 ML auto-injector 0.3 mg IM PRN PRNRF: 0 lisinopril 5 mg Tablet 5 mg PO DAILY RF: 0 meloxicam 15 mg Tablet 15 mg PO DAILY RF: 0 bupropion HCl 300 mg Tablet Extended Release 24 Hr 300 mg PO QAM RF: 0 budesonide-formoterol [Symbicort] 160-4.5 mcg/actuation Hfa Aerosol Inhaler 2 puff Inhalation BID Qty: 6 RF: 0 oxycodone-acetaminophen [Percocet] 5-325 mg Tablet 1 tab PO BID PRNRF: 0 nicotine (polacrilex) 4 mg Gum 4 mg PO Q30MIN PRNRF: 0 buspirone 15 mg Tablet 15 mg PO BID RF: 0 alprazolam 2 mg Tablet Extended Release 24 Hr 2 mg PO DAILY RF: 0 calcium carbonate-vitamin D3 [Calcium 500 With D] 500 mg(1,250mg) -400 unit Tablet 1 tab PO DAILY RF: 0 pregabalin [Lyrica] 50 mg Capsule 100 mg PO TID RF: 0 multivitamin [Multiple Vitamins] Tablet 1 tab PO DAILY Qty: 30 RF: 0 nicotine 21 mg/24 hr Patch 24 Hour 21 mg transdermal DAILY PRN PRNQty: 30 RF: 0 thiamine mononitrate (vit B1) [Vitamin B-1 (mononitrate)] 100 mg Tablet 100 mg PO DAILY Qty: 30 RF: 0 prednisone 10 mg tablet 10 mg PO DAILY Qty: 34 RF: 0 ipratropium-albuterol 3 ML solution for nebulization 3 ml UPD Q6H 30 Days Qty: 180 RF: 1 Discharge Instructions Instructions: Vertebral Compression Fracture (ED), Abdominal Pain (ED) Additional Instructions: Patient left AMA. I did verbally let her know that she had an appointment tomorrow with surgery at 10 AM Referrals: Victoria Curiel DO [OSTEOPATHIC DOCTOR] - Medical Decision Making 59-year-old female with extensive past medical history is presenting to the ER for the third time since 11-03, has been evaluated by her primary care provider 1 time as well. Patient pulmonary appointment when she began having abdominal pain, sent to the ER for concern of pancreatitis. She appears well, nontoxic does appear to be slightly uncomfortable. Has diffuse discomfort in her abdomen across the upper quadrants and epigastric region as well as diffusely across her back. Abdomen is without rigidity. Does not appear to be emergently surgical. She is afebrile. Will obtain IV access, give IV fluids, 2 mg IV morphine, obtain CBC, CMP, lipase and urinalysis. Given her continuation of pain I will obtain troponin and EKG although low suspicion for ACS. I do not believe that there is a pulmonary component of her ER evaluation today, she reports that her breathing is at baseline and she was evaluated by her regulatory affairs consultant today. Will have a low threshold for repeat CT imaging given her recent evaluation and ongoing pain. Upon reevaluation she reports that her pain has resolved with the morphine. White count 11.5 hemoglobin 11.3 hematocrit 34.6 platelet count 269. Sodium 133 potassium 3.9 creatinine 0.93 with a GFR greater than 60. Glucose 94. Bilirubin 0.3 AST 25 ALT 24 alk phos 95. Initial troponin is less than 0.05. Lipase 80. Urinalysis trace leukoesterase otherwise unremarkable. Repeat evaluation, patient is resting comfortably. Reports her pain is a 1 out of 10. Her laboratory values are rather unremarkable but given she has a mild nonspecific leukocytosis and she continues to have abdominal pain we discussed CT imaging. She is agreeable to CT imaging of her abdomen and pelvis with contrast. CT imaging read by virtual radiology as prominent gallbladder distention. Multiple small calcified gallstones. Clinically correlation is recommended to assess the possibility of acute cholecystitis in a patient with upper abdominal pain. Mural thickening true the collapsed well evacuated distal traverse colon, descending colon, sigmoid colon and rectum. Artifact of incomplete distention or acute proctocolitis could have this appearance. Clinically correlate. Appearance is similar on the comparison from November 11. Thickening appears more prominent today. Compression-burst type fracture of T9 with severe loss of vertebral height, progressed since the comparison exam from November 11. New acute-subacute fracture component. Multiple subacute bilateral rib fractures with bony callus formation but incomplete bony union, also seen on the comparison exam November 11. Patient clinically presents because of abdominal pain. I believe she likely has cholelithiasis but given her unremarkable laboratory values, presentation being afebrile, and negative Black sign, I do believe that clinically acute sonja cystitis is less likely. Patient has no fever, vomiting, lower abdominal pain, diarrhea, and had a normal bowel movement over the past 2 days. I do not believe that the mural thickening is likely acute today or causing her presentation. It appears as though her T9 fracture is known but slightly worse now. I have placed a call to our general surgical team, Dr. Curiel to discuss her ongoing abdominal pain and suspicious CT. She is happy to see the patient in her office tomorrow at 10 AM but does recommend speaking with neurosurgery at [facility] given her acute on chronic T9 burst fracture. It is not clear whether this is stable or not in the CT report. I discussed these findings in length with patient. She is aware of her appointment tomorrow with surgery but states that she is not sure whether or not she will be able to make it. I explained to her that prior to discharge I would like to contact neurosurgery regarding her T9 fracture as she does have pain in her back. There is no clear mention whether this is stable or not and is in her best interest to have fully evaluated-consulted prior to discharge. At this time patient becomes angry, raises her voice, tells me that she has been here too long and would like to leave. I did explain to her that I felt as though it was prudent to speak with neurosurgery given her acute on chronic T9 fracture and her ongoing pain prior to discharge. Patient states I should have just gone to [facility]. You cannot keep me here. I explained to the patient that I was certainly not keeping her against her will but given her CT findings and at the request of her surgical team, I did believe speaking with neurosurgery was prudent prior to discharge. At this time patient is neurologically intact. Patient is awake, alert, understands the risks of leaving the ER prior to my consultation and request to leave AMA. Patient appears clinically sober, is of sound mind, and based upon my clinical examination has the capacity to make their own decisions. We have offered treatment options and discussed the the risks and benefits of these options and refusing these options, including and/or disability specific to the patient's pathology. Pt is able to discuss and understands the risks and benefits and alternatives of treatment and refusing treatment. We have tried to involve the patient's family or support group that was present here or by contacting them on the phone. The patient still chooses to leave before evaluation and treatment can be completed AGAINST MEDICAL ADVICE. After the patient left our ER [facility] I did speak with neurosurgery at [facility], Dr. Ham. He felt as though if she was neurologically intact this was nonoperative. He recommended an upright x-ray while standing to evaluate for kyphosis and that she could be evaluated in the outpatient spine clinic at [facility] in 6 weeks for reevaluation and repeat comparison films. Medical Records Medical records reviewed: Yes I reviewed the patient's medical records. Lab Data Lab results reviewed: Yes I reviewed the patient's lab results. Lab results narrative: 11/16/19 16:50 Urine - Reflex from Ua Urine Culture - Pending Laboratory Tests Range/Units 11/16/19 11/16/19 11/16/19 15:40 15:40 15:40 WBC (4.4-10.8) 10^3/uL 11.50 H RBC (3.93-5.22) 10^6/uL 3.78 L Hgb (11.2-15.7) g/dL 11.3 Hct (36.0-46.0) % 34.6 L MCV (80-95) fL 91.5 MCH (27.0-33.0) pg 29.9 MCHC (32.0-36.0) % 32.7 RDW (11.7-14.6) % 13.9 Plt Count (130-400) 10^3/uL 269 MPV (8.0-11.0) fL 9.9 Immature Gran % 0.7 Neutrophils % 80.1 Lymphocytes % 9.8 Monocytes % 7.4 Eosinophils % 1.7 Basophils % 0.3 Nucleated RBC % % 0 Absolute Neutrophils (1.2-6.7) 10^3/uL 9.21 H Absolute Lymphocytes (1.2-3.4) 10^3/uL 1.13 L Absolute Monocytes (0.1-0.8) 10^3/uL 0.85 H Absolute Eosinophils (0.0-0.7) 10^3/uL 0.20 Absolute Basophils (0.0-0.2) 10^3/uL 0.03 Sodium (136-145) mmol/L 133 L Potassium (3.5-5.1) mmol/L 3.9 Chloride (98-107) mmol/L 96 L Carbon Dioxide (21.0-32.0) mmol/L 26.4 Anion Gap (3-11) mmol/L 10.6 BUN (7-18) mg/dL 10 Creatinine (0.55-1.02) mg/dL 0.93 Estimated GFR/1.73 m2 (mL/min/1.73m2) >= 60.00 Glucose (74-106) mg/dL 94 Calcium (8.5-10.1) mg/dL 9.2 Total Bilirubin (0.2-1.0) mg/dL 0.3 AST (15-37) U/L 25 ALT (14-59) U/L 24 Alkaline Phosphatase (46-116) U/L 95 Troponin I (<0.06) ng/mL < 0.05 Total Protein (6.4-8.2) g/dL 7.3 Albumin (3.4-5.0) g/dL 3.7 Lipase (73-393) U/L 80 Urine Color (Yellow) Urine Clarity (Clear) Urine pH (5-8) Ur Specific [place] (1.005-1.025) Urine Protein (Negative) mg/dL Urine Ketones (Negative) mg/dL Urine Blood (Negative) Urine Nitrite (Negative) Urine Bilirubin (Negative) Urine Urobilinogen (Up TO 0.2) EU/dL Ur Leukocyte Esterase (Negative) Urine RBC (0-2) HPF Urine WBC (0-5) HPF Ur Epithelial Cells (Negative) HPF Urine Crystals (Negative) HPF Urine Bacteria (Negative) HPF Urine Mucus (Negative) Urine Other (Negative) Ur Culture Indicated? Urine Glucose (Negative) mg/dL Range/Units 11/16/19 11/16/19 16:50 19:18 WBC (4.4-10.8) 10^3/uL RBC (3.93-5.22) 10^6/uL Hgb (11.2-15.7) g/dL Hct (36.0-46.0) % MCV (80-95) fL MCH (27.0-33.0) pg MCHC (32.0-36.0) % RDW (11.7-14.6) % Plt Count (130-400) 10^3/uL MPV (8.0-11.0) fL Immature Gran % Neutrophils % Lymphocytes % Monocytes % Eosinophils % Basophils % Nucleated RBC % % Absolute Neutrophils (1.2-6.7) 10^3/uL Absolute Lymphocytes (1.2-3.4) 10^3/uL Absolute Monocytes (0.1-0.8) 10^3/uL Absolute Eosinophils (0.0-0.7) 10^3/uL Absolute Basophils (0.0-0.2) 10^3/uL Sodium (136-145) mmol/L Potassium (3.5-5.1) mmol/L Chloride (98-107) mmol/L Carbon Dioxide (21.0-32.0) mmol/L Anion Gap (3-11) mmol/L BUN (7-18) mg/dL Creatinine (0.55-1.02) mg/dL Estimated GFR/1.73 m2 (mL/min/1.73m2) Glucose (74-106) mg/dL Calcium (8.5-10.1) mg/dL Total Bilirubin (0.2-1.0) mg/dL AST (15-37) U/L ALT (14-59) U/L Alkaline Phosphatase (46-116) U/L Troponin I (<0.06) ng/mL < 0.05 Total Protein (6.4-8.2) g/dL Albumin (3.4-5.0) g/dL Lipase (73-393) U/L Urine Color (Yellow) Yellow Urine Clarity (Clear) Clear Urine pH (5-8) 7.0 Ur Specific [place] (1.005-1.025) 1.010 Urine Protein (Negative) mg/dL Negative Urine Ketones (Negative) mg/dL Negative Urine Blood (Negative) Negative Urine Nitrite (Negative) Negative Urine Bilirubin (Negative) Negative Urine Urobilinogen (Up TO 0.2) EU/dL 0.2 Ur Leukocyte Esterase (Negative) Trace H Urine RBC (0-2) HPF Negative Urine WBC (0-5) HPF 0-2 Ur Epithelial Cells (Negative) HPF Negative Urine Crystals (Negative) HPF Negative Urine Bacteria (Negative) HPF Negative Urine Mucus (Negative) Negative Urine Other (Negative) Few transitional Ur Culture Indicated? Yes Urine Glucose (Negative) mg/dL Negative ECG Data Attestation: I personally reviewed and interpreted this ECG (s) as follows: Interpretation: Official report by Dr. Baptiste, please see his note. Sinus rhythm, ventricular rate of 89. No STEMI. HPI General Mode of arrival: EMS . Date/Time Provider Initiated Documentation: 11/16/19 15:31 . Limitations to Documentation: no limitations . Information obtained by: patient . HPI Narrative: This is a 59-year-old female with extensive past medical history that includes anxiety, bipolar, COPD, hypothyroidism, current smoker, pulmonary histocytosis, respiratory failure, chronic back pain, chronic constipation, hypokalemia, alcohol abuse, Warnicke Korsakoff syndrome, presents to the ER today via EMS for ongoing abdominal pain. She reports that she was seen here in the ER on 11/03, diagnosed with gall stones, and has had 4 or 5 more abdominal pain episodes primarily after eating. She reports that the pain is moderate-severe in nature, typically comes on after eating, and eventually resides on its own. After being diagnosed with gallstones she reports that she has not established care with a surgeon. Today she was evaluated by her regulatory affairs consultant for her ongoing dyspnea on exertion, developed abdominal pain, and per her report was sent to the ER to rule out pancreatitis. She denies recent illness or trauma. She denies fever, headache, chest pain, productive cough, vomiting, diarrhea, dysuria, hematuria, numbness, tingling, weakness. Reports intermittent mild nausea, none now. Reports that her shortness of breath is at baseline. Reports intermittent chronic constipation, last bowel movement in the past 48 hours. Related Data Home Medications Medication Instructions Recorded Confirmed albuterol sulfate [ProAir HFA] 2 puff INHALATION Q4H PRN PRN 01/01/16 11/16/19 citalopram 40 mg PO DAILY 01/03/16 11/16/19 risperidone [Risperdal] 1 mg PO HS 01/03/16 11/16/19 levothyroxine [Synthroid] 75 mcg PO DAILY #90 tab 06/25/16 11/16/19 magnesium oxide 800 mg PO BID #60 tab 06/25/16 11/16/19 polyethylene glycol 3350 17 gm PO BID PRN PRN packet 06/25/16 11/16/19 epinephrine [EpiPen 2-Janes] 0.3 mg IM PRN PRN 07/10/16 11/16/19 trazodone 100 mg PO HS PRN 08/04/16 11/16/19 zolpidem [Ambien] 10 mg PO HS PRN PRN 08/04/16 11/16/19 Trelegy Ellipta 1 inh INHALATION DAILY 08/03/18 11/16/19 lisinopril 5 mg PO DAILY 08/19/18 11/16/19 meloxicam 15 mg PO DAILY 08/19/18 11/16/19 bupropion HCl 300 mg PO QAM 08/20/18 11/16/19 budesonide-formoterol [Symbicort] 2 puff INHALATION BID #6 gm 08/21/18 11/12/19 cyclobenzaprine 10 mg PO TID PRN 09/10/18 11/16/19 alprazolam 2 mg PO DAILY 04/29/19 11/16/19 buspirone 15 mg PO BID 04/29/19 11/16/19 calcium carbonate-vitamin D3 1 tab PO DAILY 04/29/19 11/16/19 [Calcium 500 With D] nicotine (polacrilex) 4 mg PO Q30MIN PRN 04/29/19 11/16/19 oxycodone-acetaminophen [Percocet] 1 tab PO BID PRN 04/29/19 11/16/19 pregabalin [Lyrica] 100 mg PO TID 04/29/19 11/16/19 ipratropium-albuterol 3 ml UPD Q6H 30 Days #180 ml 04/30/19 11/16/19 multivitamin [Multiple Vitamins] 1 tab PO DAILY #30 tab 04/30/19 11/16/19 nicotine 21 mg TRANSDERMAL DAILY PRN PRN 04/30/19 11/16/19 #30 ea prednisone 10 mg PO DAILY #34 tab 04/30/19 11/16/19 thiamine mononitrate (vit B1) 100 mg PO DAILY #30 tab 04/30/19 11/16/19 [Vitamin B-1 (mononitrate)] methocarbamol 500 mg PO Q6H PRN #14 tab 11/12/19 11/16/19 Narcan 4 mg INTRANASAL PRN PRN 11/16/19 11/16/19 aspirin 81 mg PO DAILY 11/16/19 11/16/19 benzonatate [Tessalon Perles] 100 mg PO TID PRN 11/16/19 11/16/19 cyanocobalamin (vitamin B-12) 1,000 mcg PO DAILY 11/16/19 11/16/19 [Vitamin B-12] diclofenac sodium 1 applic TOPICAL QID PRN 11/16/19 11/16/19 diclofenac sodium [Voltaren] 2 g TOPICAL QID 11/16/19 11/16/19 folic acid 1 mg PO DAILY 11/16/19 11/16/19 gemfibrozil 600 mg PO BID 11/16/19 11/16/19 guaifenesin [Mucinex] 600 mg PO BID 11/16/19 11/16/19 ibuprofen 800 mg PO TID 11/16/19 11/16/19 nystatin 1 applic TOPICAL BID 11/16/19 11/16/19 nystatin 1 applic TOPICAL BID 11/16/19 11/16/19 nystatin 5 ml PO PRN PRN 11/16/19 11/16/19 omeprazole 40 mg PO DAILY 11/16/19 11/16/19 oxycodone 5 mg PO Q6H PRN 11/16/19 11/16/19 Previous Rx's Medication Instructions Recorded levothyroxine [Synthroid] 75 mcg PO DAILY #90 tab 06/25/16 magnesium oxide 800 mg PO BID #60 tab 06/25/16 polyethylene glycol 3350 17 gm PO BID PRN PRN packet 06/25/16 budesonide-formoterol [Symbicort] 2 puff INHALATION BID #6 gm 08/21/18 ipratropium-albuterol 3 ml UPD Q6H 30 Days #180 ml 04/30/19 multivitamin [Multiple Vitamins] 1 tab PO DAILY #30 tab 04/30/19 nicotine 21 mg TRANSDERMAL DAILY PRN PRN 04/30/19 #30 ea prednisone 10 mg PO DAILY #34 tab 04/30/19 thiamine mononitrate (vit B1) 100 mg PO DAILY #30 tab 04/30/19 [Vitamin B-1 (mononitrate)] methocarbamol 500 mg PO Q6H PRN #14 tab 11/12/19 Allergies Allergy/AdvReac Type Severity Reaction Status Date / Time venom-honey bee Allergy Severe Anaphylaxsi Verified 11/16/19 15:33 s General Stated Complaint: Abd Prob ADALBERTO: 3 Review of Systems Constitutional Constitutional: Denies fatigue, Denies fever(s) and Denies headache(s) ENT Ears, Nose, Mouth, and Throat: Denies headache(s) and Denies neck pain Cardiovascular Cardiovascular: Denies chest pain and Reports dyspnea (Chronic) Respiratory Respiratory: Reports cough (Dry, chronic) and Reports dyspnea (Chronic) Gastrointestinal Gastrointestinal: Reports abdominal pain, Reports constipation, Denies diarrhea, Reports nausea and Denies vomiting Genitourinary Genitourinary: Denies dysuria Musculoskeletal Musculoskeletal: Reports back pain, Denies neck pain, Denies numbness and Denies tingling Integumentary/Breasts Skin/Breast: Denies rash Neurologic Neurologic: Denies headache(s), Denies numbness and Denies tingling Endocrine Endocrine: Denies fatigue Hematologic/Lymphatic Hematologic/Lymphatic: Denies easy bleeding and Denies easy bruising PFSH Medical History Anxiety disorder Bipolar disorder COPD exacerbation Hypothyroidism (acquired) Nicotine dependence with current use Pulmonary histiocytosis x Respiratory failure Surgical History History of right shoulder replacement Dr. Dee at . 5-6 years ago per pt. Hx of bilateral cataract extraction [address] Santos. Hx of section x 2. Hx of hysterectomy 10 yrs ago, done in [place] per pt. Social History Smoking/Tobacco Use Status: Current every day Tobacco Type: cigarettes Tobacco: How many years used: 40 Alcohol Intake: current Alcohol Intake frequency: a few times a week Alcohol type: beer Counseling given: Yes Details: says she is in AA and talks to her sponsor daily, drinking at 9 am @ visit Drug use: Current Sobriety Substance use type: does not use Adopted: Yes Caregiver/Support person: No Foster care: Yes Household members: none Housing: apartment Number of Children: 1 number of grandchildren: 1 Pets and animals: No What is your relationship status?: How often do you get together with friends or relatives?: three or more times per week Panel score (0-1 are the most socially isolated patients): 1 What type of physical activity do you participate in: none Do you feel safe at home: Yes Do you feel safe in your relationship?: Yes Exam Const General: cooperative, healthy appearing and no acute distress Orientation: alert, awake and oriented x3 HENMT Head: normal to inspection, normocephalic and atraumatic General nose exam: external nose normal Face and sinus: normal facial exam Mouth: moist mucous membranes Eyes Conjunctivae: conjunctivae normal Sclera: sclerae normal Neck Neck: normal visual inspection, full ROM, trachea midline and supple Resp Effort & Inspection: normal respiratory effort and able to speak in complete sentences Auscultation: diminished lung sounds bilaterally in the lower lung kern and wheezes (Mild, diffuse, scattered) Cardio Rate: regular rate Rhythm: regular rhythm GI Inspection: normal to inspection Palpation: soft, not firm, no guarding, not rigid and tender in the epigastrum, in the LUQ and in the RUQ; not at McBurney's point Auscultation: normal bowel sounds Back/Spine/Pelvis Back: No no CVA tenderness and back tenderness (Diffuse lumbar and lower thoracic) Skin General skin exam: no rashes or lesions noted Neuro General: patient alert, patient awake, patient oriented x3, moves all extremities and no focal motor deficits Cognition: normal cognition Speech: speech normal Motor: muscle tone normal throughout and strength 5/5 throughout Sensory Exam: no sensory deficits noted Extrem General: normal to inspection, full ROM and capillary refill normal Psych Appearance: grossly normal Mental Status: mental status grossly normal Course Vital Signs Vital signs: Vital Signs Temperature 36.3 C L 11/16/19 15:25 Pulse 98 H 11/16/19 15:25 Respiratory Rate 20 11/16/19 15:25 Blood Pressure 147/74 H 11/16/19 15:25 Pulse Oximetry 96 11/16/19 15:25 Temperature 36.3 C L 11/16/19 15:25 Temperature Source Skin 11/16/19 15:25 Pulse 98 H 11/16/19 19:01 Pulse 91 H 11/16/19 19:10 Respiratory Rate 16 11/16/19 19:10 Respiratory Effort Incrsd Work of Breathing 11/16/19 15:34 Blood Pressure 140/93 H 11/16/19 19:01 Blood Pressure Mean 102 11/16/19 19:01 Pulse Oximetry 100 11/16/19 19:10 Oxygen Delivery Method Nasal Cannula 11/16/19 18:48 Oxygen Flow Rate 3 11/16/19 18:48 Pain Level 8 11/16/19 15:25 Lab/Test Results Lab/Test Results: 11/16/19 16:50 Urine - Reflex from Ua Urine Culture - Pending Laboratory Tests Range/Units 11/16/19 11/16/19 11/16/19 15:40 15:40 15:40 WBC (4.4-10.8) 10^3/uL 11.50 H RBC (3.93-5.22) 10^6/uL 3.78 L Hgb (11.2-15.7) g/dL 11.3 Hct (36.0-46.0) % 34.6 L MCV (80-95) fL 91.5 MCH (27.0-33.0) pg 29.9 MCHC (32.0-36.0) % 32.7 RDW (11.7-14.6) % 13.9 Plt Count (130-400) 10^3/uL 269 MPV (8.0-11.0) fL 9.9 Immature Gran % 0.7 Neutrophils % 80.1 Lymphocytes % 9.8 Monocytes % 7.4 Eosinophils % 1.7 Basophils % 0.3 Nucleated RBC % % 0 Absolute Neutrophils (1.2-6.7) 10^3/uL 9.21 H Absolute Lymphocytes (1.2-3.4) 10^3/uL 1.13 L Absolute Monocytes (0.1-0.8) 10^3/uL 0.85 H Absolute Eosinophils (0.0-0.7) 10^3/uL 0.20 Absolute Basophils (0.0-0.2) 10^3/uL 0.03 Sodium (136-145) mmol/L 133 L Potassium (3.5-5.1) mmol/L 3.9 Chloride (98-107) mmol/L 96 L Carbon Dioxide (21.0-32.0) mmol/L 26.4 Anion Gap (3-11) mmol/L 10.6 BUN (7-18) mg/dL 10 Creatinine (0.55-1.02) mg/dL 0.93 Estimated GFR/1.73 m2 (mL/min/1.73m2) >= 60.00 Glucose (74-106) mg/dL 94 Calcium (8.5-10.1) mg/dL 9.2 Total Bilirubin (0.2-1.0) mg/dL 0.3 AST (15-37) U/L 25 ALT (14-59) U/L 24 Alkaline Phosphatase (46-116) U/L 95 Troponin I (<0.06) ng/mL < 0.05 Total Protein (6.4-8.2) g/dL 7.3 Albumin (3.4-5.0) g/dL 3.7 Lipase (73-393) U/L 80 Urine Color (Yellow) Urine Clarity (Clear) Urine pH (5-8) Ur Specific [place] (1.005-1.025) Urine Protein (Negative) mg/dL Urine Ketones (Negative) mg/dL Urine Blood (Negative) Urine Nitrite (Negative) Urine Bilirubin (Negative) Urine Urobilinogen (Up TO 0.2) EU/dL Ur Leukocyte Esterase (Negative) Urine RBC (0-2) HPF Urine WBC (0-5) HPF Ur Epithelial Cells (Negative) HPF Urine Crystals (Negative) HPF Urine Bacteria (Negative) HPF Urine Mucus (Negative) Urine Other (Negative) Ur Culture Indicated? Urine Glucose (Negative) mg/dL Range/Units 11/16/19 11/16/19 16:50 19:18 WBC (4.4-10.8) 10^3/uL RBC (3.93-5.22) 10^6/uL Hgb (11.2-15.7) g/dL Hct (36.0-46.0) % MCV (80-95) fL MCH (27.0-33.0) pg MCHC (32.0-36.0) % RDW (11.7-14.6) % Plt Count (130-400) 10^3/uL MPV (8.0-11.0) fL Immature Gran % Neutrophils % Lymphocytes % Monocytes % Eosinophils % Basophils % Nucleated RBC % % Absolute Neutrophils (1.2-6.7) 10^3/uL Absolute Lymphocytes (1.2-3.4) 10^3/uL Absolute Monocytes (0.1-0.8) 10^3/uL Absolute Eosinophils (0.0-0.7) 10^3/uL Absolute Basophils (0.0-0.2) 10^3/uL Sodium (136-145) mmol/L Potassium (3.5-5.1) mmol/L Chloride (98-107) mmol/L Carbon Dioxide (21.0-32.0) mmol/L Anion Gap (3-11) mmol/L BUN (7-18) mg/dL Creatinine (0.55-1.02) mg/dL Estimated GFR/1.73 m2 (mL/min/1.73m2) Glucose (74-106) mg/dL Calcium (8.5-10.1) mg/dL Total Bilirubin (0.2-1.0) mg/dL AST (15-37) U/L ALT (14-59) U/L Alkaline Phosphatase (46-116) U/L Troponin I (<0.06) ng/mL < 0.05 Total Protein (6.4-8.2) g/dL Albumin (3.4-5.0) g/dL Lipase (73-393) U/L Urine Color (Yellow) Yellow Urine Clarity (Clear) Clear Urine pH (5-8) 7.0 Ur Specific [place] (1.005-1.025) 1.010 Urine Protein (Negative) mg/dL Negative Urine Ketones (Negative) mg/dL Negative Urine Blood (Negative) Negative Urine Nitrite (Negative) Negative Urine Bilirubin (Negative) Negative Urine Urobilinogen (Up TO 0.2) EU/dL 0.2 Ur Leukocyte Esterase (Negative) Trace H Urine RBC (0-2) HPF Negative Urine WBC (0-5) HPF 0-2 Ur Epithelial Cells (Negative) HPF Negative Urine Crystals (Negative) HPF Negative Urine Bacteria (Negative) HPF Negative Urine Mucus (Negative) Negative Urine Other (Negative) Few transitional Ur Culture Indicated? Yes Urine Glucose (Negative) mg/dL Negative
== END 2019-11-16 22:04 | disposition left against medical advice (07) ==
PROVIDERS: Emergency Provider Physician Assistant; PCP Family Medicine
DX: R10.13 Epigastric pain (principal); S22.071A Stable burst fracture of T9-T10 vertebra, initial encounter for closed fracture; X58.XXXA Exposure to other specified factors, initial encounter; Z53.29 Procedure and treatment not carried out because of patient's decision for other reasons; J44.9 Chronic obstructive pulmonary disease, unspecified; F17.210 Nicotine dependence, cigarettes, uncomplicated
CPT/HCPCS: 80053; 83690; 93005; 96361; 96374; 99285; 74177; 81003; 81015; 84484; 85025; 87086; 93010; 99284; J3490

== ENCOUNTER 2019-11-19 07:06 | Emergency (ER) | payer MEDICAID, SELFPAY ==
[2019-11-19] VITALS (34 sets, daily range): BP systolic 78–144; BP diastolic 49–77; PULSE 76–101; RESP 4–22; TEMP 36.2; O2SAT 64–100
--- NOTE | 2019-11-19 07:15 | RT.EKG_ITS ---
APPROVED REPORT Exam: Resting ECG Patient Location: E HR:89 bpm ECG Measurements Heart Rate 89 AXIS VA 166 P 67 QRSd 80 QRS -19 QT 368 T 67 QTc 449 Conclusion Sinus rhythm...normal P axis, V-rate 60- 99 Low voltage, extremity leads...all extremity leads <0.5mV There are no significant changes compared to prior EKG performed on 11/16/2019 at 17:53.
--- NOTE | 2019-11-19 07:28 | ED.GENADUL_ITS ---
Discharge Plan Disposition Patient Disposition: HOME Condition: Stable Discharge Details Clinical Impression: Pneumonia, Gallstones Primary Care Provider: Remy Ortega ED Provider: Angel Lombardi Home Meds and New Rx's Prescriptions: New doxycycline hyclate 100 mg tablet 100 mg PO BID Qty: 20 RF: 0 prednisone 50 MG tablet 50 mg PO DAILY Qty: 5 RF: 0 Continued albuterol sulfate [ProAir HFA] 8.5 GM HFA aerosol inhaler 2 puff Inhalation Q4H PRN PRNRF: 0 citalopram 40 MG tablet 40 mg PO DAILY RF: 0 risperidone [Risperdal] 1 MG tablet 1 mg PO HS RF: 0 trazodone 100 MG tablet 100 mg PO HS PRNRF: 0 zolpidem [Ambien] 5 MG tablet 10 mg PO HS PRN PRNRF: 0 levothyroxine [Synthroid] 75 MCG tablet 75 mcg PO DAILY Qty: 90 RF: 0 polyethylene glycol 3350 17 GM powder in packet 17 gm PO BID PRN PRNRF: 0 magnesium oxide 400 MG tablet 800 mg PO BID Qty: 60 RF: 2 Trelegy Ellipta 100-62.5-25 mcg Blister With Device 1 inh INHALATION DAILY RF: 0 cyclobenzaprine 10 mg Tablet 10 mg PO TID PRNRF: 0 methocarbamol 500 mg tablet 500 mg PO Q6H PRN (Reason: muscle spasm) Qty: 14 RF: 0 diclofenac sodium 1 % gel 1 applic TOPICAL QID PRNRF: 0 omeprazole 40 mg capsule,delayed release(DR/EC) 40 mg PO DAILY RF: 0 cyanocobalamin (vitamin B-12) [Vitamin B-12] 1,000 mcg tablet 1,000 mcg PO DAILY RF: 0 folic acid 1 mg Tablet 1 mg PO DAILY RF: 0 gemfibrozil 600 mg Tablet 600 mg PO BID RF: 0 ibuprofen 800 mg Tablet 800 mg PO TID RF: 0 guaifenesin [Mucinex] 600 mg Tablet Extended Release 12hr 600 mg PO BID RF: 0 Narcan 4 mg/actuation [place],Non-Aerosol 4 mg intranasal PRN PRNRF: 0 nystatin 100,000 unit/gram Powder 1 applic TOPICAL BID RF: 0 nystatin 100,000 unit/mL Suspension 5 ml PO PRN PRNRF: 0 diclofenac sodium [Voltaren] 1 % Gel 2 g TOPICAL QID RF: 0 epinephrine [EpiPen 2-Janes] 0.3 MG/0.3 ML auto-injector 0.3 mg IM PRN PRNRF: 0 lisinopril 5 mg Tablet 5 mg PO DAILY RF: 0 meloxicam 15 mg Tablet 15 mg PO DAILY RF: 0 bupropion HCl 300 mg Tablet Extended Release 24 Hr 300 mg PO QAM RF: 0 budesonide-formoterol [Symbicort] 160-4.5 mcg/actuation Hfa Aerosol Inhaler 2 puff Inhalation BID Qty: 6 RF: 0 oxycodone-acetaminophen [Percocet] 5-325 mg Tablet 1 tab PO BID PRNRF: 0 nicotine (polacrilex) 4 mg Gum 4 mg PO Q30MIN PRNRF: 0 buspirone 15 mg Tablet 15 mg PO BID RF: 0 alprazolam 2 mg Tablet Extended Release 24 Hr 2 mg PO DAILY RF: 0 calcium carbonate-vitamin D3 [Calcium 500 With D] 500 mg(1,250mg) -400 unit Tablet 1 tab PO DAILY RF: 0 pregabalin [Lyrica] 50 mg Capsule 100 mg PO TID RF: 0 multivitamin [Multiple Vitamins] Tablet 1 tab PO DAILY Qty: 30 RF: 0 nicotine 21 mg/24 hr Patch 24 Hour 21 mg transdermal DAILY PRN PRNQty: 30 RF: 0 thiamine mononitrate (vit B1) [Vitamin B-1 (mononitrate)] 100 mg Tablet 100 mg PO DAILY Qty: 30 RF: 0 prednisone 10 mg tablet 10 mg PO DAILY Qty: 34 RF: 0 ipratropium-albuterol 3 ML solution for nebulization 3 ml UPD Q6H 30 Days Qty: 180 RF: 1 Discharge Instructions Instructions: Gallstones (ED), Pneumonia (ED) Additional Instructions: At this time it is our recommendations that he stay overnight, however you have made it clear that your request is to go home. It is absolutely imperative that if you have any worsening of your symptoms to return immediately to the hospital/ER for reassessment. Your x-ray does show concerns of pneumonia. Please take the antibiotic and the prednisone as directed. Additionally if your symptoms do not improve after 10 days with this treatment it is very important to be seen and assessed again by your family doctor and get repeat imaging no any potential change or further work-up indications. Please continue to take your breathing treatments at home every 4 hours for the next 2 to 3 days. As we discussed together it is very important for you to follow-up with a surgeon to discuss future surgical options for your gallstones. We will place a referral for you, but please also call the number that we have included for the surgeons. It is imperative that when you do get an appointment that you do your best to go to set appointment to set up these discussions for potential future surgery. Please avoid any fatty, greasy, or oily foods as this can worsen your right sided abdominal pain and gallbladder pain. If you notice any worsening of your symptoms, or any new symptoms such as vomiting, diarrhea, fever, chills, shortness of breath, chest pain, numbness, weakness, or fainting , please return immediately to the emergency department for reevaluation. Please follow up with your primary care provider as soon as possible for reassessment and reevaluation. As always, it was a pleasure participating in your medical care today. Referrals: Chyna Martinez MD [ [facility] STAFF PHYSICIAN] - Remy Ortega [Primary Care Provider] - Discharge Data Discharge Date/Time-TO BE ENTERED AT DEPARTURE: 11/19/19 10:24 Medical Decision Making <Sean Contreras MD - Last Filed: 11/23/19 20:11> Patient presenting with chief complaint of recurrent abdominal pain which is right upper quadrant in nature. Previous CT scans confirm cholelithiasis but has not shown cholecystitis. Laboratory studies have been unremarkable. Patient also complaining of shortness of breath but is not clear to me whether this is her baseline or not. Recently saw her manager enterprise content management so we will try to get that note from [facility]. Did not make it to see the general surgeon in follow-up as she was supposed to. Has some worsening of a known T9 compression fracture but it is neurologically intact and at this time not complaining of significant back pain, just right upper quadrant abdominal pain. Will hold off on narcotics at this point. She has home narcotics as best I can tell. Will treat with ketorolac and promethazine. We will recheck laboratory studies. Will also give DuoNeb and portable chest x-ray. Care signed over and previous visits and today's complaint discussed with Dr. Lombardi. Medical Records Medical records reviewed: Yes I reviewed the patient's medical records. ECG Data Attestation: I personally reviewed and interpreted this ECG (s) as follows: Interpretation: see EKG <Angel Lombardi, DO - Last Filed: 11/19/19 09:58> Case was signed out to me by my colleague Dr. Contreras, please refer to his documentation, HPI physical exam and assessment and plan. At time of signout plan was to follow-up on labs and imaging. Patient's laboratory work-up has returned, she has mild white count 12.6, she is actually more livia to normal for her. Her lites and renal function is stable. Troponin EKG unchanged, troponin less than 0.05. Alcohol level 6.2. Lipase normal, AST, ALT, bilirubin and conjugated bili are all within normal limits. Chest x-ray shows evidence of an added density in the right lung base suggestive of atelectasis or infiltrate per virtual radiology. However the patient denies any fever or chills. She denies any change in her cough. At this time she states that all of her symptoms are relatively chronic and unchanged. She was given a breathing treatment states that this did not change much, but she also states that she feels fine and would like to go home. Laboratory work-up did show a mild respiratory acidosis with an elevated PCO2, and an elevated lactate of 2.4. Repeat physical exam demonstrates mild crackles primarily on the right for the patient's lung sounds, no respiratory distress whatsoever. Oxygen saturations are in the mid to high 90s. And she shows no signs of respiratory compromise at this time. Repeat abdominal exam demonstrates no abdominal tenderness, no pain at McBurney's point, negative Black sign. With the patient's history of notable gallstones I suspect that her right upper quadrant pain is secondary to chronic gallstones. There are symptoms being notably chronic, and her troponin EKG both normal and unchanged, I do not feel that continued cardiac work-up is indicated as her symptoms at this time are clinically inconsistent with ACS. However with her respiratory components and the lactate VBG, I did recommend to the patient that she be admitted tonight, and at this time through notable discussion, weighing the risks and benefits, utilizing a shared decision making process, and with a very clear discussion on the benefit of admission and the risks associated with discharge including the unlikely but potential worst case scenario of or lifelong disability the patient has refused admission and would like to go home. Additionally, I made it exquisitely clear that I do feel that the patient's respiratory component would benefit from admission but she unequivocally states that she wants to go home and does not want to be admitted. Patient is of a appropriate age to make decisions. The patient is of sound mind, appears clinically sober, and has capacity to make decisions by my clinical exam. Respecting the patient's wishes, they will be discharged home. The patient states clearly that I will feel fine going home, and I feel fine now. If things get worse I can always come back. We will get a repeat lactate and VBG to note any potential change. The patient has made it clear that she will not be staying overnight tonight. Out of an abundance of precaution we will start the patient on steroids, and antibiotics for suspected infiltrate/pneumonia. We will place surgical referral. Of note she did have a surgical referral on her last visit however the patient did not go to the appointment the next day. I emphasized to her the importance of going to her scheduled surgical appointment when they do call. 9:56 AM Lactate and VBG have returned and are actually notably normalized/improved. PCO2 has gone down, pH is gone back to a normal level. Lactate is now 1.3. At this time we will still respect her wishes but I again emphasized to her the importance of returning him my recommendations for staying overnight. She maintains a systolic position of going home. I have extensively reviewed the less ideal treatment plan and discharge instructions with the patient. I have addressed all patient concerns at this time. The patient was made aware of what symptoms to monitor for that would warrant a return to the emergency department. Discussed the plan with the patient, they demonstrate verbal understanding and agreement with our assessment and plan at this time. FINDINGS: Tubes, catheters and devices: Leads over the chest. Lungs: Coarsened interstitial markings remain, probably chronic. Added density right base could be due to atelectasis or infiltrate. Pleural space: Apical pleural thickening. No effusion or pneumothorax. Heart/Mediastinum: Heart size and mediastinal contour not enlarged. Bones/joints: Right shoulder arthroplasty partially visualized. Degenerative changes along the spine and shoulders. IMPRESSION: Added density in the right lung base requiring follow-up. Chronic appearing interstitial thickening. Thank you for allowing us to participate in the care of your patient. Dictated and Authenticated by: Chuy Stokes MD HPI <Sean Contreras MD - Last Filed: 11/23/19 20:11> General Mode of arrival: EMS . Date/Time Provider Initiated Documentation: 11/19/19 07:15 . Limitations to Documentation: no limitations . Information obtained by: patient, RN notes reviewed and old records reviewed . HPI Narrative: Patient returns to ED today by ambulance with continued complaint of abdominal pain. Patient has now been seen here 4 times in the last few weeks with similar complaint. Also complains of back pain as well as shortness of breath. She denies having chest pain. Abdominal pain is right upper quadrant and goes into her back. She reports nausea but no vomiting or diarrhea. Unclear whether her shortness of breath is baseline or worse. She was just seen by her manager enterprise content management last week. She reports that she remains only on 10 mg of prednisone. There have been no reports of fever. Previous ED visits have shown bilateral subacute rib fractures, worsening of T9 compression fracture, cho lelithiasis but no cholecystitis. She was referred to general surgery on her last visit to the ED. She did not make it to this appointment. She is requesting morphine for pain. Related Data Home Medications Medication Instructions Recorded Confirmed albuterol sulfate [ProAir HFA] 2 puff INHALATION Q4H PRN PRN 01/01/16 11/22/19 citalopram 40 mg PO DAILY 01/03/16 11/22/19 risperidone [Risperdal] 1 mg PO HS 01/03/16 11/22/19 levothyroxine [Synthroid] 75 mcg PO DAILY #90 tab 06/25/16 11/22/19 magnesium oxide 800 mg PO BID #60 tab 06/25/16 11/22/19 polyethylene glycol 3350 17 gm PO BID PRN PRN packet 06/25/16 11/22/19 epinephrine [EpiPen 2-Janes] 0.3 mg IM PRN PRN 07/10/16 11/22/19 trazodone 100 mg PO HS PRN 08/04/16 11/22/19 zolpidem [Ambien] 10 mg PO HS PRN PRN 08/04/16 11/22/19 Trelegy Ellipta 1 inh INHALATION DAILY 08/03/18 11/22/19 lisinopril 5 mg PO DAILY 08/19/18 11/22/19 meloxicam 15 mg PO DAILY 08/19/18 11/22/19 bupropion HCl 300 mg PO QAM 08/20/18 11/22/19 budesonide-formoterol [Symbicort] 2 puff INHALATION BID #6 gm 08/21/18 11/22/19 cyclobenzaprine 10 mg PO TID PRN 09/10/18 11/22/19 alprazolam 2 mg PO DAILY 04/29/19 11/22/19 buspirone 15 mg PO BID 04/29/19 11/22/19 calcium carbonate-vitamin D3 1 tab PO DAILY 04/29/19 11/22/19 [Calcium 500 With D] nicotine (polacrilex) 4 mg PO Q30MIN PRN 04/29/19 11/22/19 oxycodone-acetaminophen [Percocet] 1 tab PO BID PRN 04/29/19 11/22/19 pregabalin [Lyrica] 100 mg PO TID 04/29/19 11/22/19 ipratropium-albuterol 3 ml UPD Q6H 30 Days #180 ml 04/30/19 11/22/19 multivitamin [Multiple Vitamins] 1 tab PO DAILY #30 tab 04/30/19 11/22/19 nicotine 21 mg TRANSDERMAL DAILY PRN PRN 04/30/19 11/22/19 #30 ea prednisone 10 mg PO DAILY #34 tab 04/30/19 11/22/19 thiamine mononitrate (vit B1) 100 mg PO DAILY #30 tab 04/30/19 11/22/19 [Vitamin B-1 (mononitrate)] methocarbamol 500 mg PO Q6H PRN #14 tab 11/12/19 11/22/19 Narcan 4 mg INTRANASAL PRN PRN 11/16/19 11/22/19 cyanocobalamin (vitamin B-12) 1,000 mcg PO DAILY 11/16/19 11/22/19 [Vitamin B-12] diclofenac sodium 1 applic TOPICAL QID PRN 11/16/19 11/22/19 diclofenac sodium [Voltaren] 2 g TOPICAL QID 11/16/19 11/22/19 folic acid 1 mg PO DAILY 11/16/19 11/22/19 gemfibrozil 600 mg PO BID 11/16/19 11/22/19 guaifenesin [Mucinex] 600 mg PO BID 11/16/19 11/22/19 ibuprofen 800 mg PO TID 11/16/19 11/22/19 nystatin 1 applic TOPICAL BID 11/16/19 11/22/19 nystatin 5 ml PO PRN PRN 11/16/19 11/22/19 omeprazole 40 mg PO DAILY 11/16/19 11/22/19 doxycycline hyclate 100 mg PO BID #20 tab 11/19/19 11/22/19 prednisone 50 mg PO DAILY #5 tab 11/19/19 11/22/19 Previous Rx's Medication Instructions Recorded levothyroxine [Synthroid] 75 mcg PO DAILY #90 tab 06/25/16 magnesium oxide 800 mg PO BID #60 tab 06/25/16 polyethylene glycol 3350 17 gm PO BID PRN PRN packet 06/25/16 budesonide-formoterol [Symbicort] 2 puff INHALATION BID #6 gm 08/21/18 ipratropium-albuterol 3 ml UPD Q6H 30 Days #180 ml 04/30/19 multivitamin [Multiple Vitamins] 1 tab PO DAILY #30 tab 04/30/19 nicotine 21 mg TRANSDERMAL DAILY PRN PRN 04/30/19 #30 ea prednisone 10 mg PO DAILY #34 tab 04/30/19 thiamine mononitrate (vit B1) 100 mg PO DAILY #30 tab 04/30/19 [Vitamin B-1 (mononitrate)] methocarbamol 500 mg PO Q6H PRN #14 tab 11/12/19 doxycycline hyclate 100 mg PO BID #20 tab 11/19/19 prednisone 50 mg PO DAILY #5 tab 11/19/19 Allergies Allergy/AdvReac Type Severity Reaction Status Date / Time venom-honey bee Allergy Severe Anaphylaxsi Verified 11/22/19 12:56 s General Stated Complaint: RespSymp ADALBERTO: 2 Review of Systems <Sean Contreras MD - Last Filed: 11/23/19 20:11> Narrative: As documented in HPI otherwise negative as below. Const: no fever, chills, weakness Resp: no pleuritic pain CV: no CP, diaphoresis, edema, syncope GI: no vomiting, diarrhea Neuro: no headache, numbness, focal weakness, confusion PFSH <Sean Contreras MD - Last Filed: 11/23/19 20:11> Medical History (Updated 11/22/19 @ 13:29 by Victoria Curiel DO) Anxiety disorder Bipolar disorder COPD exacerbation Hypothyroidism (acquired) Nicotine dependence with current use Pulmonary histiocytosis x Respiratory failure Vertebral fracture, closed Surgical History History of right shoulder replacement Dr. Dee at [facility]. 5-6 years ago per pt. Hx of bilateral cataract extraction [address] Santos. Hx of section x 2. Hx of hysterectomy 10 yrs ago, done in [place] per pt. Social History Smoking/Tobacco Use Status: Current every day Tobacco Type: cigarettes Tobacco: How many years used: 40 Alcohol Intake: current Alcohol Intake frequency: a few times a week Alcohol type: beer Counseling given: Yes Details: says she is in AA and talks to her sponsor daily, drinking at 9 am @ visit Drug use: Current Sobriety Substance use type: does not use Adopted: Yes Caregiver/Support person: No Foster care: Yes Household members: none Housing: apartment Number of Children: 1 number of grandchildren: 1 Pets and animals: No Current gender identity: female What is your relationship status?: How often do you get together with friends or relatives?: three or more times per week Panel score (0-1 are the most socially isolated patients): 1 What type of physical activity do you participate in: none Do you feel safe at home: Yes Do you feel safe in your relationship?: Yes Exam <Sean Contreras MD - Last Filed: 11/23/19 20:11> Narrative Exam Narrative: Vitals: Afebrile with normal vitals and 100% O2 saturation on 4 L nasal cannula. Const: Obese female in NAD. HEENT: NC/AT. Normal facial exam. Eyes: Normal conjunctiva and sclera. Neck: Supple. Trachea midline. Lungs: Normal respiratory effort. Lungs decent air exchange but rhonchi and wheezing throughout. Cor: RRR without murmur/gallop. Good radial pulses. GI: Soft and nondistended. Tender to palpation in the right upper quadrant. No guarding, no rebound, no Black's. Neuro: A+O x 3. Normal speech, mentation. Cranial nerves II - XII grossly intact. No gross motor or sensory deficit. Ext: No C/C/E. Skin: Warm and dry. Course <Sean Contreras MD - Last Filed: 11/23/19 20:11> Vital Signs Vital signs: Vital Signs Temperature 97.2 F L 11/19/19 07:04 Pulse 89 11/19/19 07:04 Respiratory Rate 22 11/19/19 07:04 Blood Pressure 107/69 11/19/19 07:04 Pulse Oximetry 100 11/19/19 07:04 Temperature 97.2 F L 11/19/19 07:04 Temperature Source Temporal Artery Scan 11/19/19 07:04 Pulse 89 11/19/19 07:04 Respiratory Rate 22 11/19/19 07:04 Respiratory Effort 11/19/19 07:15 Blood Pressure 107/69 11/19/19 07:04 Blood Pressure Position Sitting 11/19/19 07:04 Pulse Oximetry 100 11/19/19 07:04 Oxygen Delivery Method Nasal Cannula 11/19/19 07:04 Oxygen Flow Rate 4 11/19/19 07:04 Sign Out <Sean Contreras MD - Last Filed: 11/23/19 20:11> Sign Out Data: Sign Out Comment: Pending x-ray and labs as well as reevaluation for pain. Last updated by Sean Contreras MD at 11/19/19 08:04
--- NOTE | 2019-11-19 07:45 | DI.RAD_ITS ---
EXAM: XR PORTABLE CHEST AP CLINICAL HISTORY: SOB TECHNIQUE: COMPARISON: CR,XR XR RIBS LT W PA LAT CHEST from 07/08/2019 FINDINGS: Portable AP chest was obtained. There appear to be changes of COPD. There is a poor inspiration. T here is question of new right lower lung field infiltrate. Otherwise lungs are grossly clear. No gross pleural effusion on the frontal film. IMPRESSION: Question new right basilar infiltrate. Appropriate follow-up films requested. RADIATION DOSE DELIVERED: Total DLP
[2019-11-19 08:09] LABS: Abs Immature Grans 0.11 10^3/uL (0.0-0.06); Absolute Basophil Count 0.05 10^3/uL (0.0-0.2); Absolute Monocyte Count 0.72 10^3/uL (0.1-0.8); Basophils % 0.4; Eosinophils % 1.4; HCT 36.9 % (36.0-46.0); HGB 11.6 g/dL (11.2-15.7); Immature Grans % 0.9; Lymphocytes % 10.6; MCH 30.1 pg (27.0-33.0); MCHC 31.4 % (32.0-36.0); MCV 95.6 fL (80-95); MPV 9.7 fL (8.0-11.0); Monocytes % 5.7; Nucleated RBC 0 %; Platelet Count 277 10^3/uL (130-400); RBC 3.86 10^6/uL (3.93-5.22); RDW 14.2 % (11.7-14.6); RDW-SD 49.4 fL; WBC 12.59 10^3/uL (4.4-10.8)
[2019-11-19 08:10] LABS: Absolute Eosinophil Count 0.18 10^3/uL (0.0-0.7); Absolute Lymphocyte Count 1.33 10^3/uL (1.2-3.4); BE (Venous) 3 mmol/L (-2-3); HCO3 (Venous) 30 mmol/L (23-28); O2 Sat (Venous) 82 %; TCO2 (Venous) 28 mmol/L (24-29); pH (Venous) 7.29 (7.31-7.41); pO2 (Venous) 54 mmHg
[2019-11-19 08:15] LABS: pCO2 (Venous) 62 mmHg (41-51)
[2019-11-19 08:16] LABS: Lactate 2.4 mmol/L (0.6-1.4)
[2019-11-19] MEDS: Ketorolac 15 MG/ML VIAL IVP (08:16)
[2019-11-19] MEDS: Albuterol/Ipratropium 3 ML UPD VIAL UPD (08:17)
[2019-11-19 08:30] LABS: Lipase 157 U/L (73-393)
[2019-11-19 08:32] LABS: Bilirubin, Direct 0.05 mg/dL (0.00-0.20); ETHANOL BLOOD 6.2 mg/dL (<3)
[2019-11-19 08:33] LABS: ALT 25 U/L (14-59); AST 31 U/L (15-37); Alkaline Phosphatase 109 U/L (46-116); Anion Gap 7.4 mmol/L (3-11); BUN 12 mg/dL (7-18); Bilirubin, Total 0.2 mg/dL (0.2-1.0); CO2 30.6 mmol/L (21.0-32.0); CREATININE 1.01 mg/dL (0.55-1.02); Calcium 9.5 mg/dL (8.5-10.1); Chloride 99 mmol/L (98-107); Glucose 101 mg/dL (74-106); Potassium 4.2 mmol/L (3.5-5.1); Sodium 137 mmol/L (136-145); Total Protein 7.5 g/dL (6.4-8.2)
[2019-11-19 08:34] LABS: Troponin I < 0.05 ng/mL (<0.06)
[2019-11-19] MEDS: Lactated Ringers 1,000 ML 125 ML IV (08:34)
--- NOTE | 2019-11-19 08:57 | DI.VRAD_ITS ---
PROCEDURE INFORMATION: Exam: XR Chest, 1 View Exam date and time: 11/19/2019 8:35 AM Age: 59 years old Clinical indication: Shortness of breath TECHNIQUE: Imaging protocol: XR of the chest Views: 1 view. COMPARISON: CT CHEST LUNG CANCER SCREEN 10/11/2019 12:54 PM FINDINGS: Tubes, catheters and devices: Leads over the chest. Lungs: Coarsened interstitial markings remain, probably chronic. Added density right base could be due to atelectasis or infiltrate. Pleural space: Apical pleural thickening. No effusion or pneumothorax. Heart/Mediastinum: Heart size and mediastinal contour not enlarged. Bones/joints: Right shoulder arthroplasty partially visualized. Degenerative changes along the spine and shoulders. IMPRESSION: Added density in the right lung base requiring follow-up. Chronic appearing interstitial thickening. Dictated and Authenticated by: Chuy Stokes MD. Ordering:PETRA Estrada MD
[2019-11-19 09:46] LABS: BE (Venous) 6 mmol/L (-2-3); HCO3 (Venous) 31 mmol/L (23-28); O2 Sat (Venous) 59 %; TCO2 (Venous) 29 mmol/L (24-29); pCO2 (Venous) 59 mmHg (41-51); pH (Venous) 7.34 (7.31-7.41); pO2 (Venous) 34 mmHg
[2019-11-19 09:47] LABS: Lactate 1.3 mmol/L (0.6-1.4)
[2019-11-19] MEDS: Doxycycline Hyclate 100 MG, 2 CAPS/BTL PO (10:02)
[2019-11-19] MEDS: predniSONE 20 MG TAB 60 MG PO (10:02)
--- NOTE | 2019-11-19 10:05 | NUR.NOTE ---
Referral faxed to [facility]Nursing Note:
== END 2019-11-19 10:24 | disposition home or self-care (01) ==
PROVIDERS: Emergency Medicine; Emergency Provider Student in an Organized Health Care Education/Training Program; PCP Family Medicine
DX: K80.20 Calculus of gallbladder without cholecystitis without obstruction (principal); J18.9 Pneumonia, unspecified organism; J44.9 Chronic obstructive pulmonary disease, unspecified; F17.210 Nicotine dependence, cigarettes, uncomplicated
CPT/HCPCS: 36415; 80053; 82805; 83690; 93005; 94640; 96361; 96365; 96375; 99285; 71045; 80320; 81003; 82248; 83605; 84484; 85025; 93010; J1885; J7512; J7620

== ENCOUNTER 2019-11-20 10:07 | Emergency (ER) | payer MEDICAID, SELFPAY ==
[2019-11-20 10:13] VITALS: BP 155/94; PULSE 93; RESP 15; TEMP 36.2; O2SAT 100
[2019-11-20 11:03] LABS: Abs Immature Grans 0.11 10^3/uL (0.0-0.06); Absolute Basophil Count 0.03 10^3/uL (0.0-0.2); Absolute Eosinophil Count 0.01 10^3/uL (0.0-0.7); Absolute Monocyte Count 0.19 10^3/uL (0.1-0.8); Basophils % 0.2; Eosinophils % 0.1; HCT 36.2 % (36.0-46.0); HGB 11.6 g/dL (11.2-15.7); Immature Grans % 0.8; MCV 93.5 fL (80-95); MPV 9.5 fL (8.0-11.0); Monocytes % 1.3; Neutrophils % 93.6; Nucleated RBC 0 %; Platelet Count 278 10^3/uL (130-400); RBC 3.87 10^6/uL (3.93-5.22); RDW 13.9 % (11.7-14.6); WBC 14.66 10^3/uL (4.4-10.8)
[2019-11-20 11:07] LABS: Absolute Lymphocyte Count 0.59 10^3/uL (1.2-3.4); Absolute Neutrophil Count 13.72 10^3/uL (1.2-6.7)
[2019-11-20 11:11] LABS: Bilirubin Negative (Negative); Blood Negative (Negative); Clarity Clear (Clear); Glucose Negative (Negative); Ketones Negative (Negative); Leukocyte Esterase Negative (Negative); Nitrite Negative (Negative); Specific Gravity 1.015 (1.005-1.025); Urobilinogen 0.2 EU/dL (Up TO 0.2)
--- NOTE | 2019-11-20 11:15 | DI.US_ITS ---
EXAM: US ABDOMEN CLINICAL HISTORY: Epigastric discomfort, leukocytosis TECHNIQUE: Ultrasound performed using standard protocol. COMPARISON: US Cardiac from 05/10/2017 FINDINGS: Examination was technically limited due to patient's body habitus and overlying bowel gas. Liver is incompletely seen. No focal hepatic abnormality identified. There are multiple gallstones. No gallbladder wall thickening seen. Negative sonographic Black sig n. Common bile duct is of normal diameter. Pancreas is poorly visualized. Spleen appears normal in size and shape. Kidneys are normal in size and shape with no renal mass, hydronephrosis, or nephrolithiasis. Abdominal aorta nonvisualized. IVC of normal diameter. IMPRESSION: Cholelithiasis. No pericholecystic fluid collection or gallbladder wall thickening to suggest acute process. DATA REPOSITORY:
[2019-11-20 11:16] LABS: ALT 22 U/L (14-59); AST 22 U/L (15-37); Albumin 3.6 g/dL (3.4-5.0); Alkaline Phosphatase 100 U/L (46-116); Anion Gap 5.9 mmol/L (3-11); BUN 14 mg/dL (7-18); Bilirubin, Total 0.3 mg/dL (0.2-1.0); CO2 31.1 mmol/L (21.0-32.0); Calcium 9.4 mg/dL (8.5-10.1); Chloride 101 mmol/L (98-107); Estimated GFR 57.15 (mL/min/1.73m2); Glucose 136 mg/dL (74-106); Lipase 80 U/L (73-393); Potassium 4.7 mmol/L (3.5-5.1); Sodium 138 mmol/L (136-145); Total Protein 7.2 g/dL (6.4-8.2)
[2019-11-20 11:20] LABS: ETHANOL BLOOD < 3.0 mg/dL (<3)
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
--- NOTE | 2019-11-20 12:11 | DI.RAD_ITS ---
EXAM: XR CHEST 2V PA LATERAL CLINICAL HISTORY: Pain, increasing leukocytosis TECHNIQUE: COMPARISON: CT CT ABDOMEN PELVIS W from 11/16/2019 CR,XR XR PORTABLE CHEST AP from 11/19/2019 FINDINGS: Heart is not enlarged. There appear to be patchy and streaky radiodensities bases, these are seen on both AP and lateral views. Upper lung zones appear clear. No pleural effusion seen. IMPRESSION: Findings suggesting bibasilar patchy pneumonia, appropriate follow-up studies requested. RADIATION DOSE DELIVERED: Total DLP
[2019-11-20 16:19] VITALS: BP 125/77; PULSE 83; RESP 12; TEMP 36.2; O2SAT 98
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
== END 2019-11-20 13:29 | disposition home or self-care (01) ==
PROVIDERS: Emergency Provider Physician Assistant; PCP Family Medicine
DX: R10.13 Epigastric pain (principal); K80.20 Calculus of gallbladder without cholecystitis without obstruction; J18.9 Pneumonia, unspecified organism; J44.9 Chronic obstructive pulmonary disease, unspecified; F17.210 Nicotine dependence, cigarettes, uncomplicated; Z99.81 Dependence on supplemental oxygen
CPT/HCPCS: 36415; 80053; 83690; 96374; 99285; 71046; 76700; 80320; 81003; 85025; 99284

== ENCOUNTER 2019-11-27 11:51 | Emergency (ER) | payer MEDICAID, SELFPAY ==
[2019-11-27] VITALS (47 sets, daily range): BP systolic 95–160; BP diastolic 66–94; PULSE 74–109; RESP 12–29; TEMP 37.1; O2SAT 89–100
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
--- NOTE | 2019-11-27 12:15 | RT.EKG_ITS ---
APPROVED REPORT Exam: Resting ECG Patient Location: E HR:93 bpm ECG Measurements Heart Rate 93 AXIS MT 170 P 64 QRSd 76 QRS -45 QT 351 T 73 QTc 436 Conclusion Sinus rhythm...normal P axis, V-rate 60- 99 Inferior infarct, old...Q >35mS, II III aVF EKG shows sinus rhythm at 93, left axis, nonspecific ST changes without STEMI, inferior Q waves, TWI lead aVL compared to prior 11/19/2019, nondiagnostic EKG
[2019-11-27 12:29] LABS: Abs Immature Grans 0.12 10^3/uL (0.0-0.06); Absolute Lymphocyte Count 1.36 10^3/uL (1.2-3.4); Basophils % 0.3; Eosinophils % 1.2; HCT 44.3 % (36.0-46.0); HGB 14.2 g/dL (11.2-15.7); Immature Grans % 0.7; Lymphocytes % 7.5; MCH 29.5 pg (27.0-33.0); MCHC 32.1 % (32.0-36.0); MCV 92.1 fL (80-95); MPV 9.5 fL (8.0-11.0); Monocytes % 4.1; Neutrophils % 86.2; Nucleated RBC 0 %; Platelet Count 332 10^3/uL (130-400); RBC 4.81 10^6/uL (3.93-5.22); RDW 13.6 % (11.7-14.6); RDW-SD 46.5 fL; WBC 18.17 10^3/uL (4.4-10.8)
[2019-11-27 12:36] LABS: Absolute Basophil Count 0.05 10^3/uL (0.0-0.2); Absolute Eosinophil Count 0.22 10^3/uL (0.0-0.7); Absolute Monocyte Count 0.74 10^3/uL (0.1-0.8); Absolute Neutrophil Count 15.66 10^3/uL (1.2-6.7)
[2019-11-27 12:42] LABS: ALT 25 U/L (14-59); AST 28 U/L (15-37); Albumin 4.3 g/dL (3.4-5.0); Alkaline Phosphatase 142 U/L (46-116); Anion Gap 8.9 mmol/L (3-11); BUN 19 mg/dL (7-18); Bilirubin, Total 0.6 mg/dL (0.2-1.0); CO2 30.1 mmol/L (21.0-32.0); CREATININE 1.19 mg/dL (0.55-1.02); Calcium 10.1 mg/dL (8.5-10.1); Chloride 96 mmol/L (98-107); Estimated GFR 46.75 (mL/min/1.73m2); Glucose 115 mg/dL (74-106); Lipase 122 U/L (73-393); Potassium 4.3 mmol/L (3.5-5.1); Sodium 135 mmol/L (136-145); Total Protein 8.2 g/dL (6.4-8.2)
[2019-11-27] MEDS: Normal Saline Flush 10 ML SYR IVP (12:42)
[2019-11-27] MEDS: Ipratropium/Albuterol 4 GM 120 PUFF INH IH (12:43)
--- NOTE | 2019-11-27 12:44 | DI.CT_ITS ---
EXAM: CT CHEST PE ABD PELVIS W CLINICAL HISTORY: abd pain, left flank pain. TECHNIQUE: Imaging Protocol: Axial CT angiography was performed with multi-slice acquisition and mu lti-planar and/or 3D reconstructions. CONTRAST MATERIAL: Intravenous: Omnipaque 350 Contrast volume:100 mL COMPARISON: CT CT CHEST LUNG CANCER SCREEN from 10/11/[address] CHEST LUNG CANCER SCREEN from 10/11/[address] ABDOMEN PELVIS WO from 11/04/[address] ABDOMEN PELVIS W from 11/12/[address] ABDOMEN PELVIS W from 11/16/[address] ABDOMEN PELVIS W from 11/16/2019 CR XR CHEST 2V PA LATERAL from 11/20/2019 FINDINGS: CHEST: Pulmonary Arteries: No evidence of filling defect to suggest pulmonary emboli. Tracheobronchial tree: Patent where visualized. Mediastinum and [place]raine: No dominant adenopathy or fluid collection. Pulmonary parenchyma: Small areas of consolidation are seen in both the right middle and left lingula r lobes. In addition small area of consolidation is seen in the right lower lobe. Moderately severe centrilobular emphysematous changes. Pleura: No effusion or pneumothorax. Heart: The heart is not dilated. Mild coronary artery calcification. No significant pericardial effu sergio. Aorta: Thoracic aorta non-dilated. Atherosclerosis. No evidence of dissection. Bones: There is again seen a marked compression fracture deformity of the T9 vertebral body with exag geration of the kyphosis at this level. There also appears to be mild compression deformity of T8. May also be a smiled compression deformity of the T5 vertebral body. Degenerative changes are seen i n the spine. ABDOMEN: Liver: Normal density. No measurable mass. Portal, Superior Mesenteric, and Splenic Veins: Unremarkable. Gallbladder and Biliary Tract: Cholelithiasis. No biliary ductal dilatation. Pancreas: Normal density, no abnormal calcifications or inflammatory process. Spleen: Normal. Adrenals: No masses seen. Kidneys: Normal size, contour and axis. No radiodense stones or obstructive uropathy. No masses seen. Abdominal Aorta: Abdominal portion non-dilated. Atherosclerosis. Bowel: No obstruction or bowel wall thickening. No evidence of appendicitis. Peritoneal Cavity: No ascites, collection or mesenteric inflammatory response. Lymph Nodes: Within normal limits. Bones: Degenerative changes. Soft Tissues: Unremarkable. PELVIS: Bladder: Symmetric distention, no gross wall thickening. Reproductive Organs: Status post hysterectomy. Lymph Nodes: Within normal limits. Bones: Degenerative changes. IMPRESSION: 1. No evidence of pulmonary embolism, thoracic aortic dissection or aneurysm. 2. Small infiltrate seen in the right middle, left lingular, and right lower lobes. These may repres ent areas of atelectasis, scarring or pneumonia. 3. Marked compression fracture deformity of T9 with exaggeration of the kyphosis at T9. 4. Mild compression deformities of T5 and T8. 5. Cholelithiasis. No biliary ductal dilatation. 6. The findings were discussed with the emergency department on the date of the examination. 7. Findings were discussed with the emergency department on the date of the examination. RADIATION DOSE DELIVERED: 1,689.75mGy.cm Total DLP 1,689.75mGy.cm Total DLP DATA REPOSITORY: All CT scans at this facility are submitted to the National Radiology Data Registry (NRDR) Dose Index Registry (DIR) with the [employer] (A[employer]). RADIATION OPTIMIZATION: All CT scans at this facility use at least one of these dose optimization te chniques: automated exposure control; mA and/or kV adjustment per patient size (includes targeted exa ms where dose is matched to clinical indication); or iterative reconstruction.
[2019-11-27] MEDS: Normal Saline - Diluent 50 ML VIAL IV (13:50)
[2019-11-27] MEDS: Omnipaque 350 MG/ML 100 ML BTL IJ (13:51)
[2019-11-27 14:19] LABS: Troponin I < 0.05 ng/mL (<0.06)
[2019-11-27 15:16] LABS: Bilirubin Negative (Negative); Blood Negative (Negative); Clarity Clear (Clear); Glucose Negative (Negative); Ketones Negative (Negative); Leukocyte Esterase Negative (Negative); Nitrite Negative (Negative); Specific Gravity <= 1.005 (1.005-1.025); Urobilinogen 0.2 EU/dL (Up TO 0.2); pH 5.5 (5-8)
--- NOTE | 2019-11-27 15:45 | RT.EKG_ITS ---
APPROVED REPORT Exam: Resting ECG Patient Location: E HR:92 bpm ECG Measurements Heart Rate 92 AXIS NM 177 P 58 QRSd 78 QRS -52 QT 398 T 56 QTc 493 Conclusion Sinus rhythm...normal P axis, V-rate 60- 99 Inferior infarct, old...Q >35mS, II III aVF EKG shows sinus rhythm at 92, left axis, nonspecific ST changes without STEMI, inferior Q waves, no m ajor change compared to prior, nondiagnostic EKG
[2019-11-27 15:46] LABS: Troponin I < 0.05 ng/mL (<0.06)
--- NOTE | 2019-11-27 16:35 | NUR.NOTE ---
Referral to Care Management to make appt with PCP in [place].Nursing Note:
[2019-11-27] MEDS: oxyCODONE 5 mg/Acetaminophen 325 mg TAB 1 TAB PO (16:40)
[2019-11-29 15:49] LABS: Patient Race White; SARS-CoV-2 RNA Undetected (Undetected); SARS-CoV-2 Specimen Source Nasopharynx
--- NOTE | 2019-11-30 08:48 | NUR.NOTE ---
Nursing Note: PT called to provide COVID result. Unable to get in contact with PT. Voice message left with [facility] call back phone number.
--- NOTE | 2019-11-30 17:14 | NUR.NOTE ---
Nursing Note: spoke with pt at 1713, results of negative COVID test given verbally after pt confirmed information.
== END 2019-11-27 17:36 | disposition home or self-care (01) ==
PROVIDERS: Student in an Organized Health Care Education/Training Program; Emergency Provider Emergency Medicine; PCP Family Medicine
DX: R10.32 Left lower quadrant pain (principal); D72.829 Elevated white blood cell count, unspecified; S22.050A Wedge compression fracture of T5-T6 vertebra, initial encounter for closed fracture; S22.060A Wedge compression fracture of T7-T8 vertebra, initial encounter for closed fracture; S22.070A Wedge compression fracture of T9-T10 vertebra, initial encounter for closed fracture; X58.XXXA Exposure to other specified factors, initial encounter; I10 Essential (primary) hypertension; J44.9 Chronic obstructive pulmonary disease, unspecified; Z03.818 Encounter for observation for suspected exposure to other biological agents ruled out
CPT/HCPCS: 36415; 71275; 74177; 80053; 83690; 93005; 96374; 99285; U0003; 81003; 84484; 85025; 93010; J3490

== ENCOUNTER 2019-12-01 21:16 | Inpatient (IN) | payer MEDICAID, SELFPAY ==
[2019-12-01] VITALS (10 sets, daily range): BP systolic 122–156; BP diastolic 62–98; PULSE 98–111; RESP 8–30; TEMP 36.2; O2SAT 96–99
--- NOTE | 2019-12-01 21:00 | RT.EKG_ITS ---
APPROVED REPORT Exam: Resting ECG Patient Location: E HR:99 bpm ECG Measurements Heart Rate 99 AXIS VT 182 P 57 QRSd 83 QRS -40 QT 361 T 77 QTc 463 Conclusion EKG 21: 19 rate 99, intervals normal, sinus rhythm, no significant ST elevations or depressions, no e vidence of STEMI.
--- NOTE | 2019-12-01 21:14 | ED.GENADUL_ITS ---
Discharge Plan Disposition Patient Disposition: [facility] INPATIENT Condition: Stable Discharge Details Clinical Impression: Adult failure to thrive, Chronic shortness of breath, Chronic cough, Acute exacerbation of COPD with asthma Primary Care Provider: Remy Ortega ED Provider: Angel Lombardi Home Meds and New Rx's Prescriptions: No Action albuterol sulfate [ProAir HFA] 8.5 GM HFA aerosol inhaler 2 puff Inhalation Q4H PRN PRNRF: 0 citalopram 40 MG tablet 40 mg PO DAILY RF: 0 risperidone [Risperdal] 1 MG tablet 1 mg PO HS RF: 0 trazodone 100 MG tablet 100 mg PO HS PRNRF: 0 zolpidem [Ambien] 5 MG tablet 10 mg PO HS PRN PRNRF: 0 levothyroxine [Synthroid] 75 MCG tablet 75 mcg PO DAILY Qty: 90 RF: 0 polyethylene glycol 3350 17 GM powder in packet 17 gm PO BID PRN PRNRF: 0 magnesium oxide 400 MG tablet 800 mg PO BID Qty: 60 RF: 2 Trelegy Ellipta 100-62.5-25 mcg Blister With Device 1 inh INHALATION DAILY RF: 0 cyclobenzaprine 10 mg Tablet 10 mg PO TID PRNRF: 0 methocarbamol 500 mg tablet 500 mg PO Q6H PRN (Reason: muscle spasm) Qty: 14 RF: 0 diclofenac sodium 1 % gel 1 applic TOPICAL QID PRNRF: 0 omeprazole 40 mg capsule,delayed release(DR/EC) 40 mg PO DAILY RF: 0 cyanocobalamin (vitamin B-12) [Vitamin B-12] 1,000 mcg tablet 1,000 mcg PO DAILY RF: 0 folic acid 1 mg Tablet 1 mg PO DAILY RF: 0 gemfibrozil 600 mg Tablet 600 mg PO BID RF: 0 ibuprofen 800 mg Tablet 800 mg PO TID RF: 0 guaifenesin [Mucinex] 600 mg Tablet Extended Release 12hr 600 mg PO BID RF: 0 Narcan 4 mg/actuation [place],Non-Aerosol 4 mg intranasal PRN PRNRF: 0 nystatin 100,000 unit/gram Powder 1 applic TOPICAL BID RF: 0 nystatin 100,000 unit/mL Suspension 5 ml PO PRN PRNRF: 0 diclofenac sodium [Voltaren] 1 % Gel 2 g TOPICAL QID RF: 0 oxycodone-acetaminophen [Percocet] 5-325 mg tablet 1 tab PO BID Qty: 6 RF: 0 epinephrine [EpiPen 2-Janes] 0.3 MG/0.3 ML auto-injector 0.3 mg IM PRN PRNRF: 0 lisinopril 5 mg Tablet 5 mg PO DAILY RF: 0 meloxicam 15 mg Tablet 15 mg PO DAILY RF: 0 bupropion HCl 300 mg Tablet Extended Release 24 Hr 300 mg PO QAM RF: 0 budesonide-formoterol [Symbicort] 160-4.5 mcg/actuation Hfa Aerosol Inhaler 2 puff Inhalation BID Qty: 6 RF: 0 nicotine (polacrilex) 4 mg Gum 4 mg PO Q30MIN PRNRF: 0 buspirone 15 mg Tablet 15 mg PO BID RF: 0 alprazolam 2 mg Tablet Extended Release 24 Hr 2 mg PO DAILY RF: 0 calcium carbonate-vitamin D3 [Calcium 500 With D] 500 mg(1,250mg) -400 unit Tablet 1 tab PO DAILY RF: 0 pregabalin [Lyrica] 50 mg Capsule 100 mg PO TID RF: 0 multivitamin [Multiple Vitamins] Tablet 1 tab PO DAILY Qty: 30 RF: 0 nicotine 21 mg/24 hr Patch 24 Hour 21 mg transdermal DAILY PRN PRNQty: 30 RF: 0 thiamine mononitrate (vit B1) [Vitamin B-1 (mononitrate)] 100 mg Tablet 100 mg PO DAILY Qty: 30 RF: 0 prednisone 10 mg tablet 10 mg PO DAILY Qty: 34 RF: 0 ipratropium-albuterol 3 ML solution for nebulization 3 ml UPD Q6H 30 Days Qty: 180 RF: 1 doxycycline hyclate 100 mg tablet 100 mg PO BID Qty: 20 RF: 0 prednisone 50 MG tablet 50 mg PO DAILY Qty: 5 RF: 0 Medical Decision Making This is a 59-year-old female with a past medical history of asthma, COPD, pulmonary fibrosis, alcohol abuse, hypothyroidism, hysterectomy, previous cardiac arrest secondary to respiratory events, recent vertebral fractures which appear to be chronic over acute was diagnosed 4 days ago as well as pneumonia at that time, started on doxycycline, she presents today for evaluation of cough and shortness of breath. Patient states that for the last 2 weeks she has had progressive shortness of breath with associated with nonproductive cough. Shortness of breath is worsened with exertion. She denies any associated chest pain chest tightness bandlike sensation around the chest arm neck or shoulder pain. She does have chronic back pain which is lower and she states is unchanged. Her shortness of breath is also worsened by lying flat. She denies any recent weight gains. She is on steroids more chronically. She is on 3 L of oxygen at home at all times. Upon EMS arrival oxygen was noted in the high 80s to low 90s, she was given a DuoNeb and 2 L of supplemental oxygen her oxygenation improved to 99%. Aside for the shortness of breath she also admits to abdominal pain present for the last few days. She is not very specific. She describes it as left lower quadrant. She denies any associated vomiting or diarrhea. She denies any melena. No other complaints at this time. No other modifying factors. 11 PM Patient's work-up has returned and is notably unremarkable. proBNP normal, no evidence of significant CHF. VBG stable, CT shows no evidence of PE, there is evidence of persistent minimal consolidation in the right lower lobe in the right middle lobe and inferior lingula, most likely atelectasis or scarring or resolving infectious/inflammatory process. Laboratory work-up does demonstrate mild white count elevation, mild left shift but otherwise relatively benign. Troponin is normal. TSH is notably elevated at 42 however free T4 is 1.04 and normal. In spite of the breathing treatments the patient initially received upon arrival, she still remains short of breath, lung sounds are still in no table combination of rhonchi, mild rails, and wheezes. Additional breathing treatments have been given, however in spite of this on personal reassessment patient is still notably short of breath with even slight ambulation. I personally ambulated the patient 18 feet, and respirations went up to the high 30s, she was notably dyspneic, with difficulty in maintaining ambulation. However despite of this on her home 3 L her oxygen saturations remained stable. The patient lives alone and has no additional help. I did attempt to contact her family member at the numbers provided however no one has answered. I do not feel that the patient is appropriate for discharge home at this time with her current respiratory status. Additionally I did discuss with the patient potential future placement in a facility and the patient does seem to think that this may be a good idea. At this time the patient's signs and symptoms are clinically consistent with COPD exacerbation, chronic cough with severe pulmonary disease, and notable failure to thrive at home. Unfortunately despite her lung conditions the patient does continue to smoke 1 cigarette/day. With the patient's overall clinical picture I feel that she would benefit from admission. I did contact the hospitalist Dr. Laura, he is agreed to accept the patient for admission. I will place admission orders on his behalf. Patient will be admitted MedSurg observation, as overflow into the ICU. We will continue breathing treatments throughout the night, and continue steroids. Recommend pulmonary toilet during her stay here, PT OT eval, and potential evaluation for placement. I have extensively reviewed the treatment plan with the patient. I have addressed all patient concerns at this time. I have also discussed the plan with the admitting physician and they agree with the current assessment and plan and have agreed to assume responsibility for the patient. All parties demonstrate verbal understanding and agreement with our assessment and plan at this time. EKG 21: 19 rate 99, intervals normal, sinus rhythm, no significant ST elevations or depressions, no evidence of STEMI. FINDINGS: Pulmonary arteries: Normal. No pulmonary emboli. Aorta: Unremarkable. No aortic aneurysm. No aortic dissection. Lungs: Minimal centrilobular pulmonary emphysema. Persistent minimal consolidation in the right lower lobe, right middle lobe and inferior lingula most likely indicating atelectasis/scarring with resolving infectious/inflammatory scarring not excluded. Pleural space: Unremarkable. No pneumothorax. No pleural effusion. Heart: Unremarkable. No cardiomegaly. No pericardial effusion. Lymph nodes: Unremarkable. No enlarged lymph nodes. Bones/joints: Unremarkable. No acute fracture. Soft tissues: Unremarkable. IMPRESSION: Persistent minimal consolidation in the right lower lobe, right middle lobe and inferior lingula most likely indicating atelectasis/scarring with resolving infectious/inflammatory scarring not excluded. FINDINGS: Aorta: No aortic aneurysm. No aortic dissection. Celiac trunk and mesenteric arteries: No occlusion or significant stenosis. Renal arteries: No occlusion or significant stenosis. Liver: Normal. No mass. Gallbladder and bile ducts: Cholelithiasis. Pancreas: Normal. No ductal dilation. Spleen: Normal. No splenomegaly. Adrenals: Normal. No mass. Kidneys and ureters: Normal. No hydronephrosis. Stomach and bowel: Unremarkable. No obstruction. No mucosal thickening. Lymph nodes: Unremarkable. No enlarged lymph nodes. Intraperitoneal space: Unremarkable. No free air. No significant fluid collection. Reproductive: Status post hysterectomy. Bones/joints: Unremarkable. No acute fracture. No dislocation. Soft tissues: Unremarkable. No acute finding. Thank you for allowing us to participate in the care of your patient. Dictated and Authenticated by: Angel Roland MD 12/01/2019 10:16 PM Eastern Time ([place] & [place]) HPI General Date/Time Provider Initiated Documentation: 12/01/19 21:19 . HPI Narrative: This is a 59-year-old female with a past medical history of asthma, COPD, pulmonary fibrosis, alcohol abuse, hypothyroidism, hysterectomy, previous cardiac arrest secondary to respiratory events, recent vertebral fractures which appear to be chronic over acute was diagnosed 4 days ago as well as pneumonia at that time, started on doxycycline, she presents today for evaluation of cough and shortness of breath. Patient states that for the last 2 weeks she has had progressive shortness of breath with associated with nonproductive cough. Shortness of breath is worsened with exertion. She denies any associated chest pain chest tightness bandlike sensation around the chest arm neck or shoulder pain. She does have chronic back pain which is lower and she states is unchanged. Her shortness of breath is also worsened by lying flat. She denies any recent weight gains. She is on steroids more chronically. She is on 3 L of oxygen at home at all times. Upon EMS arrival oxygen was noted in the high 80s to low 90s, she was given a DuoNeb and 2 L of supplemental oxygen her oxygenation improved to 99%. Aside for the shortness of breath she also admits to abdominal pain present for the last few days. She is not very specific. She describes it as left lower quadrant. She denies any associated vomiting or diarrhea. She denies any melena. No other complaints at this time. No other modifying factors. Related Data Home Medications Medication Instructions Recorded Confirmed albuterol sulfate [ProAir HFA] 2 puff INHALATION Q4H PRN PRN 01/01/16 11/27/19 citalopram 40 mg PO DAILY 01/03/16 11/27/19 risperidone [Risperdal] 1 mg PO HS 01/03/16 11/27/19 levothyroxine [Synthroid] 75 mcg PO DAILY #90 tab 06/25/16 11/27/19 magnesium oxide 800 mg PO BID #60 tab 06/25/16 11/27/19 polyethylene glycol 3350 17 gm PO BID PRN PRN packet 06/25/16 11/27/19 epinephrine [EpiPen 2-Janes] 0.3 mg IM PRN PRN 07/10/16 11/27/19 trazodone 100 mg PO HS PRN 08/04/16 11/27/19 zolpidem [Ambien] 10 mg PO HS PRN PRN 08/04/16 11/27/19 Trelegy Ellipta 1 inh INHALATION DAILY 08/03/18 11/27/19 lisinopril 5 mg PO DAILY 08/19/18 11/27/19 meloxicam 15 mg PO DAILY 08/19/18 11/27/19 bupropion HCl 300 mg PO QAM 08/20/18 11/27/19 budesonide-formoterol [Symbicort] 2 puff INHALATION BID #6 gm 08/21/18 11/27/19 cyclobenzaprine 10 mg PO TID PRN 09/10/18 11/27/19 alprazolam 2 mg PO DAILY 04/29/19 11/27/19 buspirone 15 mg PO BID 04/29/19 11/27/19 calcium carbonate-vitamin D3 1 tab PO DAILY 04/29/19 11/27/19 [Calcium 500 With D] nicotine (polacrilex) 4 mg PO Q30MIN PRN 04/29/19 11/27/19 pregabalin [Lyrica] 100 mg PO TID 04/29/19 11/27/19 ipratropium-albuterol 3 ml UPD Q6H 30 Days #180 ml 04/30/19 11/27/19 multivitamin [Multiple Vitamins] 1 tab PO DAILY #30 tab 04/30/19 11/27/19 nicotine 21 mg TRANSDERMAL DAILY PRN PRN 04/30/19 11/27/19 #30 ea prednisone 10 mg PO DAILY #34 tab 04/30/19 11/27/19 thiamine mononitrate (vit B1) 100 mg PO DAILY #30 tab 04/30/19 11/27/19 [Vitamin B-1 (mononitrate)] methocarbamol 500 mg PO Q6H PRN #14 tab 11/12/19 11/27/19 Narcan 4 mg INTRANASAL PRN PRN 11/16/19 11/22/19 cyanocobalamin (vitamin B-12) 1,000 mcg PO DAILY 11/16/19 11/27/19 [Vitamin B-12] diclofenac sodium 1 applic TOPICAL QID PRN 11/16/19 11/22/19 diclofenac sodium [Voltaren] 2 g TOPICAL QID 11/16/19 11/27/19 folic acid 1 mg PO DAILY 11/16/19 11/27/19 gemfibrozil 600 mg PO BID 11/16/19 11/27/19 guaifenesin [Mucinex] 600 mg PO BID 11/16/19 11/27/19 ibuprofen 800 mg PO TID 11/16/19 11/27/19 nystatin 1 applic TOPICAL BID 11/16/19 11/27/19 nystatin 5 ml PO PRN PRN 11/16/19 11/22/19 omeprazole 40 mg PO DAILY 11/16/19 11/27/19 doxycycline hyclate 100 mg PO BID #20 tab 11/19/19 11/27/19 prednisone 50 mg PO DAILY #5 tab 11/19/19 11/27/19 oxycodone-acetaminophen [Percocet] 1 tab PO BID #6 tab 11/27/19 Previous Rx's Medication Instructions Recorded levothyroxine [Synthroid] 75 mcg PO DAILY #90 tab 06/25/16 magnesium oxide 800 mg PO BID #60 tab 06/25/16 polyethylene glycol 3350 17 gm PO BID PRN PRN packet 06/25/16 budesonide-formoterol [Symbicort] 2 puff INHALATION BID #6 gm 08/21/18 ipratropium-albuterol 3 ml UPD Q6H 30 Days #180 ml 04/30/19 multivitamin [Multiple Vitamins] 1 tab PO DAILY #30 tab 04/30/19 nicotine 21 mg TRANSDERMAL DAILY PRN PRN 04/30/19 #30 ea prednisone 10 mg PO DAILY #34 tab 04/30/19 thiamine mononitrate (vit B1) 100 mg PO DAILY #30 tab 04/30/19 [Vitamin B-1 (mononitrate)] methocarbamol 500 mg PO Q6H PRN #14 tab 11/12/19 doxycycline hyclate 100 mg PO BID #20 tab 11/19/19 prednisone 50 mg PO DAILY #5 tab 11/19/19 oxycodone-acetaminophen [Percocet] 1 tab PO BID #6 tab 11/27/19 Allergies Allergy/AdvReac Type Severity Reaction Status Date / Time venom-honey bee Allergy Severe Anaphylaxsi Verified 11/27/19 12:03 s General ADALBERTO: 3 Review of Systems All systems reviewed & are unremarkable except as noted in HPI and below PFSH Medical History Anxiety disorder Bipolar disorder COPD exacerbation Hypothyroidism (acquired) Nicotine dependence with current use Pulmonary histiocytosis x Respiratory failure Vertebral fracture, closed Surgical History History of right shoulder replacement Dr. Dee at [facility]. 5-6 years ago per pt. Hx of bilateral cataract extraction [address] Santos. Hx of section x 2. Hx of hysterectomy 10 yrs ago, done in [place] per pt. Social History Smoking/Tobacco Use Status: Current every day Tobacco Type: cigarettes Tobacco: How many years used: 40 Alcohol Intake: current Alcohol Intake frequency: a few times a week Alcohol type: beer Counseling given: Yes Details: says she is in AA and talks to her sponsor daily, drinking at 9 am @ visit Drug use: Never Substance use type: does not use Adopted: Yes Caregiver/Support person: No Foster care: Yes Household members: none Housing: apartment Number of Children: 1 number of grandchildren: 1 Pets and animals: No Current gender identity: female What is your relationship status?: How often do you get together with friends or relatives?: three or more times per week Panel score (0-1 are the most socially isolated patients): 1 What type of physical activity do you participate in: none Do you feel safe at home: Yes Do you feel safe in your relationship?: Yes Exam Narrative Exam Narrative: 1.Const: Well-nourished, Well-developed, appearing stated age 2.Eyes: PERRL, no conjunctival injection, and symmetrical lids. 3.ENT: Atraumatic external nose and ears. Moist MM. Neck: Symmetric, trachea midline, No thyromegaly. 4.CVS: +S1/S2, No murmurs or gallops. Peripheral pulses 2+ and equal in all extremities. Brisk capillary refill in all extremities. 5.RESP: Ronchi throughout, wheezes in the bases, crackles in the bases. No evidence of significant trauma. 6.GI: Soft, mild tenderness in the left side of the lower abdomen. No guarding or rebound. No peritoneal signs. 7.MSK: Normocephalic/Atraumatic, Extremities w/o deformity or ttp No cyanosis or clubbing, Normal movement of all extremities. No significant lower extremity edema, no calf tenderness 8.Skin: Warm, Dry. No rashes or lesions. 9.Neuro: rn ostomy II-XII grossly intact. Sensation grossly intact, no focal neurologic deficits. 10.Psych: (AAO) x3. Appropriate mood and affect
[2019-12-01 21:38] LABS: Abs Immature Grans 0.13 10^3/uL (0.0-0.06); Absolute Basophil Count 0.04 10^3/uL (0.0-0.2); Absolute Lymphocyte Count 2.89 10^3/uL (1.2-3.4); Absolute Monocyte Count 1.01 10^3/uL (0.1-0.8); Absolute Neutrophil Count 8.38 10^3/uL (1.2-6.7); Basophils % 0.3; Eosinophils % 2.7; HCT 37.8 % (36.0-46.0); HGB 11.9 g/dL (11.2-15.7); Lymphocytes % 22.6; MCH 29.4 pg (27.0-33.0); MCHC 31.5 % (32.0-36.0); MCV 93.3 fL (80-95); MPV 9.9 fL (8.0-11.0); Monocytes % 7.9; Neutrophils % 65.5; Nucleated RBC 0 %; Platelet Count 237 10^3/uL (130-400); RBC 4.05 10^6/uL (3.93-5.22); RDW 13.8 % (11.7-14.6); RDW-SD 46.5 fL; WBC 12.79 10^3/uL (4.4-10.8)
[2019-12-01 21:39] LABS: Absolute Eosinophil Count 0.35 10^3/uL (0.0-0.7)
--- NOTE | 2019-12-01 21:48 | DI.CT_ITS ---
EXAM: CT CHEST PE ABD PELVIS W CLINICAL HISTORY: cough, ronchi, SOB, CP eval for PE. TECHNIQUE: Imaging Protocol: Axial CT angiography was performed with multi-slice acquisition and mu lti-planar and/or 3D reconstructions. CONTRAST MATERIAL: Intravenous: Omnipaque 350 Contrast volume:100 ml COMPARISON: CT CT CHEST LUNG CANCER SCREEN from 10/11/[address] CHEST PE ABD PELVIS W from 11/27/2019 FINDINGS: PE CT: Pulmonary Arteries: No evidence of filling defect to suggest pulmonary emboli. Tracheobronchial tree: Patent where visualized. Mediastinum and [place]: No dominant adenopathy or fluid collection. Pulmonary parenchyma: Evaluation of the pulmonary parenchyma is reduced due to expiratory technique a nd mild respiratory motion. Central lobular emphysema. Atelectasis in the right middle lobe, lingul a and posterior right lower lobe. There are stable small pulmonary nodules. Pleura: No effusion or pneumothorax. Heart: The heart is not dilated. No coronary artery calcifications are seen. Aorta: Thoracic aorta non-dilated. Upper abdomen: Unremarkable. Bones: Old bilateral rib fractures. Stable the ear mid thoracic compression fractures Abdomen pelvic CT: There is no evidence of aortic aneurysm or dissection. There is moderate aortic calcification. No b ranch vessel occlusion is seen. Stones are noted in the gallbladder. The liver, spleen, pancreas, a drenals and kidneys are unremarkable. There is no bowel dilatation or wall thickening. There is no free air or free fluid. The patient is status post hysterectomy. The bladder is unremarkable. Ther e are mild degenerative changes in the spine. IMPRESSION: No evidence of pulmonary embolism or other acute abnormality. Emphysematous changes and bilateral pu lmonary scarring are again noted.. RADIATION DOSE DELIVERED: 1,367.56mGy.cm Total DLP DATA REPOSITORY: All CT scans at this facility are submitted to the National Radiology Data Registry (NRDR) Dose Index Registry (DIR) with the [employer] (ACR). RADIATION OPTIMIZATION: All CT scans at this facility use at least one of these dose optimization te chniques: automated exposure control; mA and/or kV adjustment per patient size (includes targeted exa ms where dose is matched to clinical indication); or iterative reconstruction.
[2019-12-01 22:00] LABS: Prothrombin Time 10.5 sec (9.3-11.0)
[2019-12-01] MEDS: Normal Saline Flush 10 ML SYR IVP (22:07)
[2019-12-01] MEDS: Normal Saline - Diluent 50 ML VIAL IV (22:08)
[2019-12-01] MEDS: Omnipaque 350 MG/ML 100 ML BTL IJ (22:08)
[2019-12-01 22:10] LABS: ALT 23 U/L (14-59); AST 26 U/L (15-37); Albumin 3.6 g/dL (3.4-5.0); Alkaline Phosphatase 137 U/L (46-116); Anion Gap 7.5 mmol/L (3-11); BUN 11 mg/dL (7-18); Bilirubin, Total 0.2 mg/dL (0.2-1.0); CO2 30.5 mmol/L (21.0-32.0); CREATININE 0.97 mg/dL (0.55-1.02); Calcium 9.5 mg/dL (8.5-10.1); Chloride 99 mmol/L (98-107); Estimated GFR 59.19 (mL/min/1.73m2); Glucose 116 mg/dL (74-106); NT-proBNP 69 pg/mL (<300); Potassium 3.7 mmol/L (3.5-5.1); Sodium 137 mmol/L (136-145); TSH (W/Ref FT4) 42.51 uIU/mL (0.36-3.74)
[2019-12-01 22:11] LABS: Troponin I < 0.05 ng/mL (<0.06)
--- NOTE | 2019-12-01 22:17 | DI.VRAD_ITS ---
PROCEDURE INFORMATION: Exam: CT Angiography Chest With Contrast Exam date and time: 12/01/2019 9:48 PM Age: 59 years old Clinical indication: Type not specified; Localized; Patient HX: Cough, ronchi, SOB, chest pain, left lateral abdominal pain TECHNIQUE: Imaging protocol: Computed tomographic angiography of the chest with intravenous contrast. 3D rendering (Not supervised by radiologist): MIP and/or 3D reconstructed images were created by the technologist. Radiation optimization: All CT scans at this facility use at least one of these dose optimization techniques: automated exposure control; mA and/or kV adjustment per patient size (includes targeted exams where dose is matched to clinical indication); or iterative reconstruction. Contrast material: [id number]; Contrast volume: 100 ml; Contrast route: INTRAVENOUS (IV); COMPARISON: CT CHEST PE ABD PELVIS W 11/27/2019 1:28 PM FINDINGS: Pulmonary arteries: Normal. No pulmonary emboli. Aorta: Unremarkable. No aortic aneurysm. No aortic dissection. Lungs: Minimal centrilobular pulmonary emphysema. Persistent minimal consolidation in the right lower lobe, right middle lobe and inferior lingula most likely indicating atelectasis/scarring with resolving infectious/inflammatory scarring not excluded. Pleural space: Unremarkable. No pneumothorax. No pleural effusion. Heart: Unremarkable. No cardiomegaly. No pericardial effusion. Lymph nodes: Unremarkable. No enlarged lymph nodes. Bones/joints: Unremarkable. No acute fracture. Soft tissues: Unremarkable. IMPRESSION: Persistent minimal consolidation in the right lower lobe, right middle lobe and inferior lingula most likely indicating atelectasis/scarring with resolving infectious/inflammatory scarring not excluded. PROCEDURE INFORMATION: Exam: CT Angiography Abdomen With Contrast Exam date and time: 12/01/2019 9:48 PM Age: 59 years old Clinical indication: Type not specified; Localized; Patient HX: Cough, ronchi, SOB, chest pain, left lateral abdominal pain TECHNIQUE: Imaging protocol: Computed tomographic angiography images of the abdomen with intravenous contrast material. 3D rendering (Not supervised by radiologist): MIP and/or 3D reconstructed images were created by the technologist. Radiation optimization: All CT scans at this facility use at least one of these dose optimization techniques: automated exposure control; mA and/or kV adjustment per patient size (includes targeted exams where dose is matched to clinical indication); or iterative reconstruction. Contrast material: [id number]; Contrast volume: 100 ml; Contrast route: INTRAVENOUS (IV); COMPARISON: CT CHEST PE ABD PELVIS W 11/27/2019 1:28 PM FINDINGS: Aorta: No aortic aneurysm. No aortic dissection. Celiac trunk and mesenteric arteries: No occlusion or significant stenosis. Renal arteries: No occlusion or significant stenosis. Liver: Normal. No mass. Gallbladder and bile ducts: Cholelithiasis. Pancreas: Normal. No ductal dilation. Spleen: Normal. No splenomegaly. Adrenals: Normal. No mass. Kidneys and ureters: Normal. No hydronephrosis. Stomach and bowel: Unremarkable. No obstruction. No mucosal thickening. Lymph nodes: Unremarkable. No enlarged lymph nodes. Intraperitoneal space: Unremarkable. No free air. No significant fluid collection. Reproductive: Status post hysterectomy. Bones/joints: Unremarkable. No acute fracture. No dislocation. Soft tissues: Unremarkable. IMPRESSION: No acute finding. Dictated and Authenticated by: Angel Roland MD. Ordering:SARAH Ortiz MD
[2019-12-01 22:30] LABS: FREE T4 1.04 ng/dL (0.76-1.46)
[2019-12-01] MEDS: methylPREDNISolone SUCC 125 MG VIAL IVP (23:12)
[2019-12-01] MEDS: Albuterol/Ipratropium 3 ML UPD VIAL 6 ML UPD (23:20)
[2019-12-01] MEDS: Ketorolac 30 MG/ML VIAL IVP (23:26)
[2019-12-01] MEDS: ACETAMINOPHEN 1,000 MG/100 ML BTL 400 MG IVPB (23:36)
[2019-12-02] VITALS (90 sets, daily range): BP systolic 98–171; BP diastolic 62–93; PULSE 79–114; RESP 2–32; TEMP 36–36.1; O2SAT 80–100
[2019-12-02 00:46] LABS: Troponin I < 0.05 ng/mL (<0.06)
[2019-12-02] MEDS: Normal Saline 1,000 ML 150 ML IV (02:18)
--- NOTE | 2019-12-02 04:54 | NUR.NOTE ---
Awakened c/o back pain. Given 2 mg morphine IV with relief.
--- NOTE | 2019-12-02 06:33 | W.PM.HP.N ---
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 She has marked dyspnea with any activity which seems to be progressing. She is followed by pulmonology, Dr. Heath. She appears to have maxed out therapy at this point yet still continues to use and get exposed to tobacco. I do not believe she is a candidate for consideration for lung transplant. Palliative care and end-of-life planning seems to be the most reasonable course at this time. Will increase her steroids back up to prednisone 40 mg daily, continue inhalers, continue oxygen supplementation. We will try to continue to optimize therapies and associate professor of counseling on proper treatment and management of this condition. (2) Abdominal pain: Status: Acute Assessment and plan: Debilitating abdominal pain likely on the basis of severe constipation. She is about 1 week without a bowel movement. She is on chronic opiate therapy in the form of Percocet. Will give a Dulcolax suppository and continue her current bowel regimen. She may need enemas or other modalities to get her bowels moving. She does have cholelithiasis but does not appear to have acute cholecystitis. (3) Adult failure to thrive: Status: Acute Assessment and plan: She is admitting that she cannot really live alone any longer. Her friends are recommending she consider assisted living. She is willing to talk with care management about some form of placement. She understands that she would have to give up her apartment. (4) Alcohol abuse: Status: Chronic Assessment and plan: She states she only drinks a few beers a day and can make a beer last all day. She denies ever having gone through alcohol withdrawal. We will place her on CIWA scoring with lorazepam as needed. (5) Pulmonary histiocytosis x: Status: Acute Assessment and plan: She is not a candidate for lung transplant therapy. She continues to smoke. She will continue to follow-up with pulmonology. She gets a CT of the chest annually. (6) Bipolar disorder: Status: Acute Assessment and plan: Continued on the risperidone. She does not appear to be manic or in a particularly depressive episode at this time. (7) Polypharmacy: Status: Acute Assessment and plan: The patient's med list is excessively long. It does not appear that she can manage these number of medications adequately. She is still hypothyroid despite levothyroxine replacement. I think med compliance would be difficult if not impossible with this number of medications. A concerted effort to try to clean up her med list would be warranted. (8) Constipation: Status: Acute Assessment and plan: Dulcolax suppository and bowel regimen as ordered. (9) Discharge planning issues: Status: Acute Assessment and plan: We talked about CODE STATUS. She is willing to be intubated again if needed only as a last resort. She has been on a ventilator 5 or 6 times per her memory. She would like to be a full code. She is admitted to observation status but may well need acute care status if her condition does not improve or adequate disposition can be facilitated within 48 hours. History of Present Illness History of Present Illness Chief Complaint: Difficulty breathing/weakness/abdominal pain Narrative: This is a 59-year-old woman with multiple chronic medical conditions including COPD, histiocytosis X, bipolar disorder, hypothyroidism, tobacco abuse, alcohol abuse. She presented to the emergency room for the second consecutive day complaining of difficulty breathing. She describes 2 weeks of progressive shortness of breath associated with a nonproductive cough. She feels her dyspnea on exertion is worse than her baseline. She has bandlike abdominal pain, she has not had a bowel movement in over a week per her report. Work-up in the emergency room was unremarkable. She had a CT of the chest abdomen and pelvis that showed prior lung abnormalities. Attempts to ambulate her in the emergency room showed marked dyspnea though she maintained her saturations. She is admitted for failure to thrive, weakness, dyspnea. Review of Systems Narrative: Patient sat up on the side of the bed throughout the night. She was complaining of a bandlike abdominal pain both in the right lower quadrant and left lower quadrant. Her breathing is relatively stable at rest but as soon as she tries to sit up or move around at all she gets short of breath. She has just a mild cough. She is not been having fevers. No associated chest pain. She has been constipated with no bowel movement in greater than 1 week. Her cough is productive of purulent sputum.. She has skin changes she attributes to the prednisone, multiple ecchymoses on her arms and legs. [facility] Medical History Anxiety disorder Bipolar disorder COPD exacerbation Hypothyroidism (acquired) Nicotine dependence with current use Pulmonary histiocytosis x Respiratory failure Vertebral fracture, closed Surgical History History of right shoulder replacement Dr. Dee at [facility]. 5-6 years ago per pt. Hx of bilateral cataract extraction [address] Santos. Hx of section x 2. Hx of hysterectomy 10 yrs ago, done in [place] per pt. Social History Smoking/Tobacco Use Status: Current every day Tobacco Type: cigarettes Tobacco: How many years used: 40 Alcohol Intake: current Alcohol Intake frequency: a few times a week Alcohol type: beer Counseling given: Yes Details: says she is in AA and talks to her sponsor daily, drinking at 9 am @ visit Drug use: Never Substance use type: does not use Adopted: Yes Caregiver/Support person: No Foster care: Yes Household members: none Housing: apartment Number of Children: 1 number of grandchildren: 1 Pets and animals: No Current gender identity: female What is your relationship status?: How often do you get together with friends or relatives?: three or more times per week Panel score (0-1 are the most socially isolated patients): 1 What type of physical activity do you participate in: none Do you feel safe at home: Yes Do you feel safe in your relationship?: Yes Meds Home Medications and Allergies Home Medications Medication Instructions Recorded Confirmed Type albuterol sulfate [ProAir HFA] 2 puff INHALATION Q4H PRN PRN 01/01/16 11/27/19 History citalopram 40 mg PO DAILY 01/03/16 11/27/19 History risperidone [Risperdal] 1 mg PO HS 01/03/16 11/27/19 History levothyroxine [Synthroid] 75 mcg PO DAILY #90 tab 06/25/16 11/27/19 Rx magnesium oxide 800 mg PO BID #60 tab 06/25/16 11/27/19 Rx polyethylene glycol 3350 17 gm PO BID PRN PRN packet 06/25/16 11/27/19 Rx epinephrine [EpiPen 2-Janes] 0.3 mg IM PRN PRN 07/10/16 11/27/19 History trazodone 100 mg PO HS PRN 08/04/16 11/27/19 History zolpidem [Ambien] 10 mg PO HS PRN PRN 08/04/16 11/27/19 History Trelegy Ellipta 1 inh INHALATION DAILY 08/03/18 11/27/19 History lisinopril 5 mg PO DAILY 08/19/18 11/27/19 History meloxicam 15 mg PO DAILY 08/19/18 11/27/19 History bupropion HCl 300 mg PO QAM 08/20/18 11/27/19 History budesonide-formoterol [Symbicort] 2 puff INHALATION BID #6 gm 08/21/18 11/27/19 Rx cyclobenzaprine 10 mg PO TID PRN 09/10/18 11/27/19 History alprazolam 2 mg PO DAILY 04/29/19 11/27/19 History buspirone 15 mg PO BID 04/29/19 11/27/19 History calcium carbonate-vitamin D3 1 tab PO DAILY 04/29/19 11/27/19 History [Calcium 500 With D] nicotine (polacrilex) 4 mg PO Q30MIN PRN 04/29/19 11/27/19 History pregabalin [Lyrica] 100 mg PO TID 04/29/19 11/27/19 History ipratropium-albuterol 3 ml UPD Q6H 30 Days #180 ml 04/30/19 11/27/19 Rx multivitamin [Multiple Vitamins] 1 tab PO DAILY #30 tab 04/30/19 11/27/19 Rx nicotine 21 mg TRANSDERMAL DAILY PRN PRN 04/30/19 11/27/19 Rx #30 ea prednisone 10 mg PO DAILY #34 tab 04/30/19 11/27/19 Rx thiamine mononitrate (vit B1) 100 mg PO DAILY #30 tab 04/30/19 11/27/19 Rx [Vitamin B-1 (mononitrate)] methocarbamol 500 mg PO Q6H PRN #14 tab 11/12/19 11/27/19 Rx Narcan 4 mg INTRANASAL PRN PRN 11/16/19 11/22/19 History cyanocobalamin (vitamin B-12) 1,000 mcg PO DAILY 11/16/19 11/27/19 History [Vitamin B-12] diclofenac sodium 1 applic TOPICAL QID PRN 11/16/19 11/22/19 History diclofenac sodium [Voltaren] 2 g TOPICAL QID 11/16/19 11/27/19 History folic acid 1 mg PO DAILY 11/16/19 11/27/19 History gemfibrozil 600 mg PO BID 11/16/19 11/27/19 History guaifenesin [Mucinex] 600 mg PO BID 11/16/19 11/27/19 History ibuprofen 800 mg PO TID 11/16/19 11/27/19 History nystatin 1 applic TOPICAL BID 11/16/19 11/27/19 History nystatin 5 ml PO PRN PRN 11/16/19 11/22/19 History omeprazole 40 mg PO DAILY 11/16/19 11/27/19 History doxycycline hyclate 100 mg PO BID #20 tab 11/19/19 11/27/19 Rx prednisone 50 mg PO DAILY #5 tab 11/19/19 11/27/19 Rx oxycodone-acetaminophen [Percocet] 1 tab PO BID #6 tab 11/27/19 Rx Allergies Allergy/AdvReac Type Severity Reaction Status Date / Time venom-honey bee Allergy Severe Anaphylaxsi Verified 12/01/19 23:57 s Exam Narrative Exam Narrative: On exam she has lara face ease and other stigmata of chronic corticosteroid use. She is mildly dyspneic sitting up on the side of the bed tripoding and leaning forward. She tends to list somewhat to the right. Her speech is clear and mentation seems to be relatively clear. She has a rattly cough that appears to be nonproductive. Her posterior lung exam notable for somewhat decreased breath sounds, a few rhonchorous breath sounds on expiration that appear to be transmitted upper airway sounds. No focal rales were heard. Heart sounds are muffled, no murmur was appreciated. Abdominal exam revealed massively obese abdomen that is overall soft and no specific tenderness to palpation including in the right lower quadrant and left lower quadrant. No masses are palpable. Lower extremity showed no evidence of edema. She does have excoriations and crust formation on the very lower portions of her ankles that appear to be healing and not infected. She has a few superficial ecchymoses around her lower extremities and on her distal upper extremities related to prednisone usage. Neurologically she appears moderately sedated, quite subdued. She moves all extremities without difficulty. She has pain with simply moving from supine to upright, primarily in the lower abdomen. Results Imaging Imaging Studies: CT of the chest abdomen and pelvis showed persistent minimal consolidation of the right lower lobe, right middle lobe and inferior lingula indicating atelectasis or scarring. She is noted to have cholelithiasis. Labs Result diagrams: 12/01/19 21:20 12/01/19 21:20 Labs: Laboratory Results - last 24 hr 12/01/19 12/01/19 12/01/19 21:20 21:20 21:20 WBC 12.79 H RBC 4.05 Hgb 11.9 Hct 37.8 MCV 93.3 MCH 29.4 MCHC 31.5 L RDW 13.8 Plt Count 237 MPV 9.9 Immature Gran % 1.0 Neutrophils % 65.5 Lymphocytes % 22.6 Monocytes % 7.9 Eosinophils % 2.7 Basophils % 0.3 Nucleated RBC % 0 Absolute Neutrophils 8.38 H Absolute Lymphocytes 2.89 Absolute Monocytes 1.01 H Absolute Eosinophils 0.35 Absolute Basophils 0.04 PT 10.5 INR 1.0 APTT 24.0 VBG pH VBG pCO2 VBG pO2 VBG HCO3 VBG Total CO2 VBG O2 Saturation VBG Base Excess Sodium 137 Potassium 3.7 Chloride 99 Carbon Dioxide 30.5 Anion Gap 7.5 BUN 11 Creatinine 0.97 Estimated GFR/1.73 m2 59.19 Glucose 116 H Calcium 9.5 Total Bilirubin 0.2 AST 26 ALT 23 Alkaline Phosphatase 137 H Troponin I < 0.05 NT-Pro-B Natriuret Pep 69 Total Protein 7.0 Albumin 3.6 TSH 42.51 H Free T4 1.04 12/01/19 12/02/19 21:20 00:20 WBC RBC Hgb Hct MCV MCH MCHC RDW Plt Count MPV Immature Gran % Neutrophils % Lymphocytes % Monocytes % Eosinophils % Basophils % Nucleated RBC % Absolute Neutrophils Absolute Lymphocytes Absolute Monocytes Absolute Eosinophils Absolute Basophils PT INR APTT VBG pH 7.38 VBG pCO2 51 VBG pO2 46 VBG HCO3 30 H VBG Total CO2 31 H VBG O2 Saturation 80 VBG Base Excess 5 H Sodium Potassium Chloride Carbon Dioxide Anion Gap BUN Creatinine Estimated GFR/1.73 m2 Glucose Calcium Total Bilirubin AST ALT Alkaline Phosphatase Troponin I < 0.05 NT-Pro-B Natriuret Pep Total Protein Albumin TSH Free T4 Last Vital Signs Temp 36 C L 12/02/19 04:12 Pulse 103 H 12/02/19 06:02 Resp 27 H 12/02/19 06:30 BP 132/73 12/02/19 06:02 Pulse Ox 98 12/02/19 06:30 COVID-19 Screening Have you,or household,traveled outside [place] in last 14 days?: No Had IN PERSON contact w/suspected or confirmed C-19 person: No
[2019-12-02] MEDS: Omeprazole 20 MG CAPCR 40 MG PO (07:48)
[2019-12-02] MEDS: buPROPion-XL 150 MG TABCR 300 MG PO (07:48)
[2019-12-02] MEDS: Bisacodyl 10 MG SUPP PR ×2 (07:48→09:28)
[2019-12-02] MEDS: oxyCODONE 5 mg/Acetaminophen 325 mg TAB 1 TAB PO ×2 (07:49→19:47)
[2019-12-02] MEDS: Ibuprofen 600 MG TAB PO ×4 (07:49→23:04)
[2019-12-02] MEDS: predniSONE 20 MG TAB 40 MG PO (07:49)
[2019-12-02] MEDS: guaiFENesin 600 MG TABCR PO ×2 (07:49→19:47)
[2019-12-02] MEDS: Citalopram 20 MG TAB 40 MG PO (07:49)
[2019-12-02] MEDS: busPIRone 15 MG TAB PO ×2 (07:49→19:48)
[2019-12-02] MEDS: Pregabalin 50 MG CAP PO ×3 (07:50→19:45)
[2019-12-02] MEDS: Levothyroxine 75 MCG TAB PO (07:50)
[2019-12-02] MEDS: Thiamine 100 MG TAB PO (07:50)
[2019-12-02] MEDS: Albuterol/Ipratropium 3 ML UPD VIAL UPD ×5 (07:53→23:03)
[2019-12-02] MEDS: ALPRAZolam 0.5 MG TAB 2 MG PO (08:03)
[2019-12-02] MEDS: Gemfibrozil 600 MG TAB PO ×2 (08:04→16:41)
[2019-12-02] MEDS: Enoxaparin 40 MG/0.4 ML SYR SC (08:05)
--- NOTE | 2019-12-02 08:25 | INITIAL_ITS ---
- If Service Date Differs Date of service: 12/02/19 Time of Service: 08:25 Care Management Initial Assess REASON FOR HOSPITALIZATION:: Acute exacerbation of COPD and asthma PAST MEDICAL HISTORY/PAST SURGICAL HISTORY:: Medical History . Anxiety disorder. Bipolar disorder. COPD exacerbation. Hypothyroidism (acquired). Nicotine dependence with current use. Pulmonary histiocytosis x. Respiratory failure. Vertebral fracture, closed. Surgical History . History of right shoulder replacement. Dr. Dee at [facility]. 5-6 years ago per pt. Hx of bilateral cataract extraction. [address] pt[address] Dr. Santos. Hx of section. x 2. Hx of hysterectomy. 10 yrs ago, done in [place] per pt. PREVIOUS FUNCTIONAL STATUS/SOCIAL/FAMILY SUPPORTS:: Goldie lives alone in a 4th floor efficiency apartment in [facility]. The building has an elevator, so stair climbing is not required. 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 She states she has a strong support system of family and friends. She has home health aides that help her with ADLs and chores in the home and she also receives Meals on Wheels. Goldie is oxygen dependent. She uses a quad cane and sometimes a walker or wheelchair if she goes to the store. CURRENT FUNCTIONAL STATUS:: Goldie was sitting up in bed when CM met with her. JOSÉ received a call from Goldie's daughter Darlene and shared the conversation with Goldie. Darlene is concerned about Goldie living alone and feels she needs to be in a more supportive environment. Goldie had tried living with Darlene and her family in the past but it did not end well when Goldie continued to smoke and drink in the home. Darlene requested that CM discuss the possibility of rehab in the [facility] with Goldie so she could be more present and supportive. Until now Goldie has resisted all assistance but readily agreed with this plan and shared that she would like very much to reunite with her family and be closer to them. CM will send referrals to SNFs in [facility] at Goldie and Darlene's request. ADVANCE DIRECTIVES:: on file. [facility] Has patient been provided with info about the portal/API?: Yes Did the patient sign up for the portal?: No CODE STATUS:: Full Code INSURANCE COVERAGE / FINANCIAL ISSUES:: Medicaid CURRENT HOME/COMMUNITY SERVICES/EQUIPMENT:: Goldie has home oxygen at 3L continuously. She uses bipap for sleep and also has a nebulizer. She has a quad cane and a walker. She has just been approved for [facility]. PRIMARY CARE PHYSICIAN:: Remy Munoz POTENTIAL DISCHARGE NEEDS:: Follow up with PCP and discharge plan of care PATIENT/FAMILY EDUCATION NEEDS:: Discharge plan, limitations, follow up plan, Ask Me Three. TRANSPORTATION:: Discharge plan, limitations, follow up plan, Ask Me Three. PLAN:: Goldie will likely be transferred to a SNF for short term rehab initially and perhaps transition to long-term care or assisted living, preferably in a facility near her daughter. She will follow the plan of care at the facility. Transportation to be determined . will continue to support Goldie and her family and her discharge planning needs.
--- NOTE | 2019-12-02 08:48 | W.PM.PROGNOT ---
Date of Service Date of service: 12/02/19 Time of Service: 14:35 Subjective Subjective Interval history since last seen: Feels very short of breath even at rest and states that this got acutely worse at home. Denies dizziness, chest pain, nausea. Reports R-sided abdominal pain. No BM x 1 week. Passes flatus. Had a negative CT in the ED - no SBO. Requests morphine - says it usually works. On 3L at home - on 3L now, 98-100%. 95% so far in bed. Very PIMENTEL on just sitting to standing, per nursing. Expiratory wheezing B throughout. Puffy - not edema. Not withdrawing from alcohol. I have upgraded her steroids to solumedrol 80 q 8hrs. She is to stay on her scheduled and prn nebs. I added acapella. Continue symbicort. COVID neg. Admit to inpatient status. Objective Last Vital Signs Temp 36.1 C L 12/02/19 07:57 Pulse 104 H 12/02/19 08:13 Resp 21 12/02/19 08:13 BP 158/92 H 12/02/19 08:13 Pulse Ox 95 12/02/19 07:53 Laboratory Results - last 24 hr 12/01/19 12/01/19 12/01/19 21:20 21:20 21:20 WBC 12.79 H RBC 4.05 Hgb 11.9 Hct 37.8 MCV 93.3 MCH 29.4 MCHC 31.5 L RDW 13.8 Plt Count 237 MPV 9.9 Immature Gran % 1.0 Neutrophils % 65.5 Lymphocytes % 22.6 Monocytes % 7.9 Eosinophils % 2.7 Basophils % 0.3 Nucleated RBC % 0 Absolute Neutrophils 8.38 H Absolute Lymphocytes 2.89 Absolute Monocytes 1.01 H Absolute Eosinophils 0.35 Absolute Basophils 0.04 PT 10.5 INR 1.0 APTT 24.0 VBG pH VBG pCO2 VBG pO2 VBG HCO3 VBG Total CO2 VBG O2 Saturation VBG Base Excess Sodium 137 Potassium 3.7 Chloride 99 Carbon Dioxide 30.5 Anion Gap 7.5 BUN 11 Creatinine 0.97 Estimated GFR/1.73 m2 59.19 Glucose 116 H Calcium 9.5 Total Bilirubin 0.2 AST 26 ALT 23 Alkaline Phosphatase 137 H Troponin I < 0.05 NT-Pro-B Natriuret Pep 69 Total Protein 7.0 Albumin 3.6 TSH 42.51 H Free T4 1.04 12/01/19 12/02/19 21:20 00:20 WBC RBC Hgb Hct MCV MCH MCHC RDW Plt Count MPV Immature Gran % Neutrophils % Lymphocytes % Monocytes % Eosinophils % Basophils % Nucleated RBC % Absolute Neutrophils Absolute Lymphocytes Absolute Monocytes Absolute Eosinophils Absolute Basophils PT INR APTT VBG pH 7.38 VBG pCO2 51 VBG pO2 46 VBG HCO3 30 H VBG Total CO2 31 H VBG O2 Saturation 80 VBG Base Excess 5 H Sodium Potassium Chloride Carbon Dioxide Anion Gap BUN Creatinine Estimated GFR/1.73 m2 Glucose Calcium Total Bilirubin AST ALT Alkaline Phosphatase Troponin I < 0.05 NT-Pro-B Natriuret Pep Total Protein Albumin TSH Free T4
[2019-12-02 08:55] LABS: Abs Immature Grans 0.07 10^3/uL (0.0-0.06); Absolute Basophil Count 0.01 10^3/uL (0.0-0.2); Absolute Eosinophil Count 0.01 10^3/uL (0.0-0.7); Absolute Lymphocyte Count 0.65 10^3/uL (1.2-3.4); Absolute Monocyte Count 0.26 10^3/uL (0.1-0.8); Basophils % 0.1; Eosinophils % 0.1; HCT 37.7 % (36.0-46.0); HGB 11.9 g/dL (11.2-15.7); Immature Grans % 0.6; Lymphocytes % 5.4; MCH 29.3 pg (27.0-33.0); MCHC 31.6 % (32.0-36.0); MCV 92.9 fL (80-95); MPV 9.9 fL (8.0-11.0); Monocytes % 2.2; Neutrophils % 91.6; Nucleated RBC 0 %; Platelet Count 239 10^3/uL (130-400); RBC 4.06 10^6/uL (3.93-5.22); RDW 13.8 % (11.7-14.6); RDW-SD 47.2 fL
[2019-12-02 08:58] LABS: Absolute Neutrophil Count 10.99 10^3/uL (1.2-6.7)
[2019-12-02 09:03] LABS: Anion Gap 7.3 mmol/L (3-11); BUN 9 mg/dL (7-18); CO2 28.7 mmol/L (21.0-32.0); CREATININE 0.94 mg/dL (0.55-1.02); Calcium 9.3 mg/dL (8.5-10.1); Chloride 99 mmol/L (98-107); Glucose 159 mg/dL (74-106); Magnesium 1.9 mg/dL (1.8-2.4); Potassium 4.6 mmol/L (3.5-5.1); Sodium 135 mmol/L (136-145)
[2019-12-02] MEDS: ALPRAZolam 0.5 MG TAB 1 MG PO (12:35)
[2019-12-02] MEDS: Normal Saline Flush 10 ML SYR IVP (14:56)
[2019-12-02] MEDS: Milk of Magnesia 30 ML CUP PO (14:56)
[2019-12-02] MEDS: Polyethylene Glycol 3350 17 GM PACKET PO (14:56)
[2019-12-02] MEDS: methylPREDNISolone SUCC 125 MG VIAL IVP (14:57)
[2019-12-02] MEDS: methylPREDNISolone SUCC 125 MG VIAL 80 MG IVP ×2 (15:00→23:05)
[2019-12-02] MEDS: Docusate Sodium 100 MG CAP PO ×3 (15:35→19:48)
[2019-12-02] MEDS: Senna TAB 1 TAB PO (19:47)
--- NOTE | 2019-12-02 21:03 | NUR.NOTE ---
given 2 mg morphine IV for c/o back pain with relief. PM care done and sleeping now.
--- NOTE | 2019-12-02 21:09 | NUR.NOTE ---
pt has no real edema but rather has generalized puffiness from the steroid use.
[2019-12-02] MEDS: risperiDONE 1 MG TAB PO (23:04)
[2019-12-03] VITALS (20 sets, daily range): BP systolic 125–162; BP diastolic 60–93; PULSE 92–113; RESP 4–26; TEMP 36.2–36.3; O2SAT 93–99
[2019-12-03] MEDS: Albuterol/Ipratropium 3 ML UPD VIAL UPD ×6 (02:00→20:28)
[2019-12-03] MEDS: methylPREDNISolone SUCC 125 MG VIAL 80 MG IVP ×3 (06:12→20:24)
[2019-12-03] MEDS: Ibuprofen 600 MG TAB PO ×4 (06:13→22:57)
[2019-12-03] MEDS: Levothyroxine 75 MCG TAB PO (06:13)
[2019-12-03] MEDS: Normal Saline Flush 10 ML SYR IVP ×6 (06:15→20:24)
[2019-12-03 07:21] LABS: Abs Immature Grans 0.14 10^3/uL (0.0-0.06); Absolute Basophil Count 0.02 10^3/uL (0.0-0.2); Absolute Neutrophil Count 16.53 10^3/uL (1.2-6.7); Basophils % 0.1; Eosinophils % 0.1; HCT 37.7 % (36.0-46.0); HGB 11.9 g/dL (11.2-15.7); Immature Grans % 0.8; Lymphocytes % 3.6; MCH 29.6 pg (27.0-33.0); MCHC 31.6 % (32.0-36.0); MCV 93.8 fL (80-95); MPV 9.8 fL (8.0-11.0); Monocytes % 5.4; Nucleated RBC 0 %; Platelet Count 237 10^3/uL (130-400); RBC 4.02 10^6/uL (3.93-5.22); RDW 13.8 % (11.7-14.6); RDW-SD 47.3 fL; WBC 18.37 10^3/uL (4.4-10.8)
[2019-12-03] MEDS: Enoxaparin 40 MG/0.4 ML SYR SC (07:23)
[2019-12-03] MEDS: Omeprazole 20 MG CAPCR 40 MG PO (07:23)
[2019-12-03] MEDS: Gemfibrozil 600 MG TAB PO ×2 (07:23→16:56)
[2019-12-03 07:26] LABS: Absolute Eosinophil Count 0.02 10^3/uL (0.0-0.7); Absolute Lymphocyte Count 0.66 10^3/uL (1.2-3.4); Absolute Monocyte Count 0.99 10^3/uL (0.1-0.8)
[2019-12-03 07:34] LABS: Anion Gap 3.9 mmol/L (3-11); BUN 15 mg/dL (7-18); CO2 32.1 mmol/L (21.0-32.0); CREATININE 0.99 mg/dL (0.55-1.02); Calcium 9.6 mg/dL (8.5-10.1); Chloride 97 mmol/L (98-107); Estimated GFR 57.82 (mL/min/1.73m2); Glucose 148 mg/dL (74-106); Magnesium 2.4 mg/dL (1.8-2.4); Potassium 5.3 mmol/L (3.5-5.1); Sodium 133 mmol/L (136-145)
[2019-12-03] MEDS: Citalopram 20 MG TAB 40 MG PO (07:41)
[2019-12-03] MEDS: buPROPion-XL 150 MG TABCR 300 MG PO (07:41)
[2019-12-03] MEDS: guaiFENesin 600 MG TABCR PO ×2 (07:41→20:18)
[2019-12-03] MEDS: Senna TAB 1 TAB PO ×2 (07:41→20:18)
[2019-12-03] MEDS: busPIRone 15 MG TAB PO ×2 (07:41→20:18)
[2019-12-03] MEDS: Thiamine 100 MG TAB PO (07:42)
[2019-12-03] MEDS: Acetaminophen 325 MG TAB 650 MG PO (07:42)
[2019-12-03] MEDS: Pregabalin 50 MG CAP PO ×3 (07:42→20:18)
[2019-12-03] MEDS: Docusate Sodium 100 MG CAP PO ×2 (07:42→20:18)
[2019-12-03] MEDS: oxyCODONE 5 mg/Acetaminophen 325 mg TAB 1 TAB PO ×4 (07:42→22:56)
--- NOTE | 2019-12-03 08:16 | PGE_ITS ---
Date of Service Date of service: 12/03/19 Time of Service: 13:15 Assessment and Plan Assessment and plan (1) Acute exacerbation of COPD with asthma: Status: Acute Assessment and plan: Patient has a h/o of end-stage oxygen and steroid- dependent COPD. She has a minimal consolidation on imaging (RLL, RML, inferior lingula), and so pneumonia could not be excluded. Due to lack of improvement on scheduled nebs and steroids, I would like to add abx today (ceftriaxone, doxycycline). Repeat COVID-19 nasopharyngeal swab ordered. We started to discuss her code status, but she was not ready to make a decision yet yesterday. Palliative care is consulted. I do think her symptoms could be multifactorial, and we need to address a possible cardiac component as well (read below). If the patient still has evidence of LVOT obstruction on repeat echo, then theoretically CPAP may be harmful, though there is not a lot about this subject in literature that I have found. She does not have GERONIMO, but I do see where there was a consideration to her having a trilogy machine. (2) Acute CHF: Status: Acute Assessment and plan: I was able to locate this patient's echocardiogram from 05/2017 which revealed LVOT obstruction with max gradient of 35 mmHg, hyperdynamic systolic function, normal cavity size, EF of 65-70%, and no evidence of diastolic dysfunction. She had elevated pulmonary pressures of 35 mm Hg to 45 mm Hg then. LVOT could most definitely result in acute CHF. Pulmonary hypertension could also be contributing to her shortness of breath. Of course, we are also suspicious that the patient does not take her levothyroxine as prescribed, which could also result in acute CHF. I see evidence of fluid overload now. Will trial lasix. Obtain repeat echo, recheck pro BNP, increase synthroid dose. Obtain cardiology consult. (3) Chronic respiratory failure with hypoxia and hypercapnia: Status: Chronic Assessment and plan: As above (4) Abdominal pain: Status: Acute Assessment and plan: Debilitating abdominal pain likely on the basis of severe constipation. Additionally, the patient expresses symptoms c/w urinary retention - will rule out. Also, in 2018, there appears to have been mention of celiac and SMA stenosis on her imaging, for which there was a vascular referral, but no evidence that the patient ever followed up. This is not seen by preliminary read on her latest CT, but I am checking her lactate now. Finally, there may be a neuropathic/radicular component to her back/abdominal pain. She is already on lyrica. Consider increasing if increasing percocet is not sufficient. Continue scheduled bowel regimen. (5) Hypothyroidism (acquired): Status: Chronic Assessment and plan: Severe. Question of non-compliance with levothyro xine, but at this time with acute CHF, I do think we should increase her dose of levothyroxine. (6) Alcohol abuse: Status: Chronic Assessment and plan: Continue monitoring on CIWA. No evidence of withdrawal currently. (7) Adult failure to thrive: Status: Acute Assessment and plan: Agrees to go to SNF on discharge. Palliative care is consulted. (8) Pulmonary histiocytosis x: Status: Acute Assessment and plan: Continue to follow-up with pulmonology as outpatient. (9) Bipolar disorder: Status: Acute Assessment and plan: Continued risperidone (I adjusted the dose to her outpatient 1.5 mg HS). I agree that she seems to be well compensated at this time. (10) Polypharmacy: Status: Acute Assessment and plan: Agree that this is making compliance impossible. Consult palliative care as well as attempt to condense medications to most important ones. (11) Constipation: Status: Resolved Assessment and plan: Had a BM. Continue aggressive bowel regimen. (12) Left ventricular outflow tract obstruction: Status: Chronic Assessment and plan: As above - obtain echo and cardiology consult. (13) Pulmonary hypertension: Status: Chronic Assessment and plan: Gently diurese and obtain echo. 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 Has a h/o celiac and SMA stenoses historically. Check lactate. (15) Celiac artery stenosis: Status: Chronic Assessment and plan: As above (16) DVT prophylaxis: Status: Acute Assessment and plan: SC lovenox (17) Discharge planning issues: Status: Acute Assessment and plan: Full code. Palliative care consulted. Will require SNF placement. Subjective Subjective Interval history since last seen: Denies dizziness (endorses occasional lightheadedness), denies chest pain. States her shortness of breath is not any better. Denies nausea/vomiting. Her biggest complaint is her back pain, which is bilateral and radiates to the front. States she has to push to urinate. + BM after enema. Slept well. 3L overnight. O2 sats in the 90s. Continues to be very short of breath and has continued to wheeze. Nebs help. Cough still nonproductive. Exam Narrative Exam Narrative: General: Very pleasant middle-aged female who is pursed-lip breathing while sitting up in bed HEENT: EOMI, MMM Heart: RRR, no m/r/g Lungs: expiratory wheezing B, unchanged from yesterday Abdomen: soft, nontender on exam, nondistended Extremities: 1 + pitting edema BLEs while in TEDs Objective Last Vital Signs Temp 36.3 C L 12/03/19 03:50 Pulse 100 H 12/03/19 07:21 Resp 17 12/03/19 07:21 BP 131/93 H 12/03/19 07:21 Pulse Ox 95 12/03/19 07:21 Laboratory Results - last 24 hr 12/02/19 12/02/19 12/03/19 08:44 08:44 07:06 WBC 12.00 H RBC 4.06 Hgb 11.9 Hct 37.7 MCV 92.9 MCH 29.3 MCHC 31.6 L RDW 13.8 Plt Count 239 MPV 9.9 Immature Gran % 0.6 Neutrophils % 91.6 Lymphocytes % 5.4 Monocytes % 2.2 Eosinophils % 0.1 Basophils % 0.1 Nucleated RBC % 0 Absolute Neutrophils 10.99 H Absolute Lymphocytes 0.65 L Absolute Monocytes 0.26 Absolute Eosinophils 0.01 Absolute Basophils 0.01 Sodium 135 L 133 L Potassium 4.6 D 5.3 H Chloride 99 97 L Carbon Dioxide 28.7 32.1 H Anion Gap 7.3 3.9 BUN 9 15 D Creatinine 0.94 0.99 Estimated GFR/1.73 m2 >= 60.00 57.82 Glucose 159 H 148 H Calcium 9.3 9.6 Magnesium 1.9 2.4 12/03/19 07:06 WBC 18.37 H D RBC 4.02 Hgb 11.9 Hct 37.7 MCV 93.8 MCH 29.6 MCHC 31.6 L RDW 13.8 Plt Count 237 MPV 9.8 Immature Gran % 0.8 Neutrophils % 90.0 Lymphocytes % 3.6 Monocytes % 5.4 Eosinophils % 0.1 Basophils % 0.1 Nucleated RBC % 0 Absolute Neutrophils 16.53 H Absolute Lymphocytes 0.66 L Absolute Monocytes 0.99 H Absolute Eosinophils 0.02 Absolute Basophils 0.02 Sodium Potassium Chloride Carbon Dioxide Anion Gap BUN Creatinine Estimated GFR/1.73 m2 Glucose Calcium Magnesium
[2019-12-03] MEDS: Nystatin POWDER 60 GM JAR TP ×3 (09:52→20:21)
--- NOTE | 2019-12-03 10:42 | CMPROGNOTE_ITS ---
- If Service Date Differs Date of service: 12/03/19 Time of Service: 10:42 Care Management Progress Note S/O:Goldie was sitting on the side of the bed when CM met with her. She stated that she still is not feeling well and has severe abdominal pain. Per provider, she has had abdominal problems in the past in addition to being constipated. When questioned, Goldie again stated clearly that she would like to go to rehab near her daughter when discharged. A: Goldie is a 59 year old woman admitted on 12/02/19 with COPD exacerbation P:Goldie will likely be transferred to a SNF for short term rehab initially and perhaps transition to termite control service representative care or assisted living, preferably in a facility near her daughter. She will follow the plan of care at the facility. Transportation to be determined . CM will continue to support Goldie and her family and her discharge planning needs.
[2019-12-03] MEDS: Polyethylene Glycol 3350 17 GM PACKET PO (11:32)
--- NOTE | 2019-12-03 11:48 | PT.INIE ---
Date of service: 12/03/19 Time of Service: 11:48 PT Notes Visit Reasons: RESP DISTRESS,COPD EXACERBATION,FAILURE TO THRIVE Physical Therapy Inpatient Initial Evaluation Date: 12/03/2019 Referring Doctor: Brenda Mcmanus MD PT Orders: PT CONSULT: Limited ability Precautions: Fall. Standard. Activity as tolerated. Patient Profile/Admitting Diagnosis: Goldie is a 59-year-old female who presented to the ED on 12/01/2019 with a chief complaint of increasing cough and shortness of breath. She is diagnosed with acute exacerbation of chronic obstructive pulmonary disease with asthma, abdominal pain, adult failure to thrive, alcohol abuse, pulmonary histiocytosis, bipolar disorder, polypharmacy, and constipation. PMHX: Medical History Anxiety disorder Bipolar disorder COPD exacerbation Hypothyroidism (acquired) Nicotine dependence with current use Pulmonary histiocytosis x Respiratory failure Vertebral fracture, closed Surgical History History of right shoulder replacement Dr. Dee at [facility]. 5-6 years ago per pt. Hx of bilateral cataract extraction [address] Santos. Hx of section x 2. Hx of hysterectomy 10 yrs ago, done in [place] per pt. Social History/Home Situation: Lives alone in a handicap accessible residence with no steps to enter. Receives home health aide assistance twice a week for 2 hours each time for help with her laundry, sales operations director, and grocery shopping. She has family and relatives who can provide for her transportation needs. She is hopeful that she can get a motorized wheelchair to maximize her independence with community mobility. Equipment Owned/DME: Front wheeled walker, small-based quad cane Subjective: Agreeable to consult. Goldie indicates that at rest she manages okay but becomes very much out of breath when she starts to move. She indicates that she has fallen for more than 5 times already for the past 12 months due to her weakness and continued shortness of breath. She states that at home she has 3 L of oxygen per minute at baseline. Objective: General Observation: Telemetry in place. On 3 L of oxygen via NC. IV in the right UE. Mental Status: Alert and oriented x 4 Pain: 3?4/10 pain in her low back pain area resulting from recent compression fracture when transitioning from sitting to standing ROM: Right Upper Extremity: Shoulder Flexion allows up to 130 degrees. Shoulder abduction allows up to 130 degrees. Elbow flexion WFL. Wrist flexion WFL. Opening and closing of hand WFL. Left Upper Extremity: Shoulder Flexion allows up to 90 degrees. Shoulder abduction allows up to 80 degrees. Elbow flexion WFL. Wrist flexion WFL. Opening and closing of hand WFL. Right Lower Extremity: Hip flexion WFL. Hip abduction WFL. Knee flexion WFL. Ankle dorsiflexion WFL. Ankle plantarflexion WFL. Left Lower Extremity: Hip flexion WFL. Hip abduction WFL. Knee flexion WFL. Ankle dorsiflexion WFL. Ankle plantarflexion WFL. Strength: Right Upper Extremity: Shoulder flexors 3-/5. Shoulder abductors 3-/5. Elbow flexors 4-5. Elbow extensors 4-/5. Outpatient Surgery Rn weak but functional. Left Upper Extremity: Shoulder flexors 3-/5. Shoulder abductors 3-/5. Elbow flexors 4-5. Elbow extensors 4-/5. Outpatient Surgery Rn weak but functional. Right Lower Extremity: Hip flexors 4-/5. Hip abductors 4-/5. Knee flexors 4-/5. Knee extensors 3+/5. Ankle dorsiflexors 4/5. Ankle plantarflexors 4/5. Left Lower Extremity: Hip flexors 4-/5. Hip abductors 4-/5. Knee flexors 4-/5. Knee extensors 3+/5. Ankle dorsiflexors 4/5. Ankle plantarflexors 4/5. Sensation: Intact as to pain and pressure on bilateral lower extremities. Bed Mobility/Transfers: Sit to stand contact-guard assist Stand to sit contact-guard assist Bed to chair contact-guard assist Chair to bed contact-guard assist Gait: 20 feet using front-wheeled is full weight bearing and contact-guard assist with desaturation to 85% on 3 L of oxygen per minute. Decreased jamila. Balance: Static Sitting: Normal Dynamic Sitting: Normal Static Standing: Fair Dynamic Standing: Fair Special Tests: Mobility Limitations Standardized Measure [facility]-PAC 6 clicks Basic Mobility Inpatient Short Form: Raw Score: 15 CMS Score: 58% deficit Informed Consent/Education: Patient instructed in purpose of PT consult and plan of care. Assessment: Sulaiman demonstrates significant functional mobility decline requiring the use of front wheeled walker for all mobility ADL performance, considerable reduced activity tolerance, impairment in balance, and generalized weakness due to admitting diagnoses and co-morbid conditions. Goldie is a 59-year-old female who presented to the ED on 12/01/2019 with a chief complaint of increasing cough and shortness of breath. She is diagnosed with acute exacerbation of chronic obstructive pulmonary disease with asthma, abdominal pain, adult failure to thrive, alcohol abuse, pulmonary histiocytosis, bipolar disorder, polypharmacy, and constipation. Patient presents with clinical signs and symptoms consistent with current/admitting diagnoses that have resulted to mobility limitations, gait instability, generalized weakness, and impairment of motor control as demonstrated by the following impairment level findings: 1. Decreased strength to B UEs/LE major muscle groups 2. Impaired sitting/standing balance 3. Impaired activity tolerance 4. Chronic limitation in right shoulder AROM Impairments are contributing to the following functional limitations: 1. Dependent bed mobility skills 2. Increased dependence with transfers 3. Inability to safely ambulate without assistive device and physical assistance 4. Increase completion time for mobility ADL performance 5. Increased fall risk 6. Inability to negotiate steps alone safely Patient is assessed as a 97734 moderate complexity based on the following: History: 59-year-old female with impairment level findings, functional limitations, and past medical history as indicated above Examination: Demonstrable impairment in strength, balance, and mobility level with underlying impairments and functional limitations as documented above Presentation:Evolving Decision Makin moderate complexity Goals: Goals X1 week 1. Supine-Sit independent 2. Sit-Supine independent 3. Sit-Stand independent 4. Stand-Sit independent 5. Bed-Chair independent 6. Chair-Bed independent 7. Independent gait on level surface with use of least restrictive device for at least 300 feet without report of pain nor dyspnea 9. Good static and dynamic standing balance/tolerance Plan of Care/Treatment Plan: 1-2x/day, 7 days/week x 1 week. Plan of care has been reviewed with the TRACK REPAIR LABORER providing the service under Physical Therapy direction. Initiate Physical Therapy intervention for strengthening, bed mobility, transfers, gait, stairs, balance training, use of assistive device. DISCHARGE RECOMMENDATIONS: Patient will benefit from home health PT services in order to progress mobility level using least restrictive assistive ambulatory device, assess home safety, identify additional equipment needs, and establish a functional maintenance program that will increase ability of patient to remain at home. May benefit from motorized wheelchair assessment by home health PT in order to maximize indoor and community mobility while reducing fall risk. TREATMENT CODE/TIME: 11046 x 30 minutes beginning at 11:48 AM. Thank you for the opportunity to participate in the care of this patient. Emily Egan PT, DPT, CLT [facility] [place], [place]
[2019-12-03] MEDS: Furosemide 20 MG/2 ML VIAL IVP (13:28)
[2019-12-03 14:21] LABS: NT-proBNP 297 pg/mL (<300)
[2019-12-03] MEDS: cefTRIAXone 1 GM/50 ML BAG IVPB (14:22)
[2019-12-03] MEDS: Normal Saline 500 ML IV (14:23)
[2019-12-03 14:32] LABS: Lactate 3.8 mmol/L (0.9-1.7)
[2019-12-03 14:36] LABS: Potassium 4.8 mmol/L (3.5-5.1)
[2019-12-03 14:51] LABS: NT-proBNP 296 pg/mL (<300)
[2019-12-03] MEDS: DOXYCYCLINE 100 MG in Normal Saline 100 ML IVPB (16:56)
[2019-12-03 18:26] LABS: Bilirubin Negative (Negative); Blood Negative (Negative); Clarity Clear (Clear); Glucose Negative (Negative); Ketones Negative (Negative); Leukocyte Esterase Negative (Negative); Nitrite Negative (Negative); Specific Gravity 1.015 (1.005-1.025); Urobilinogen 0.2 EU/dL (Up TO 0.2); pH 5.5 (5-8)
[2019-12-03] MEDS: traZODone 100 MG TAB PO (20:24)
[2019-12-03 22:20] LABS: COVID-19 RT-PCR UVMMC Result Negative (Negative)
--- NOTE | 2019-12-03 22:28 | NUR.NOTE ---
2029- pt transferred to med surg rm 228. Report given to MARIO Alvarez. Pt transferred via w/c with 3 L o2 on via N/C. transfer explained to pt.
[2019-12-03] MEDS: risperiDONE 1 MG TAB 1.5 MG PO (22:57)
[2019-12-04] VITALS (18 sets, daily range): BP systolic 111–176; BP diastolic 73–94; PULSE 84–118; RESP 2–22; TEMP 36.3–36.9; O2SAT 92–98
[2019-12-04] MEDS: Albuterol/Ipratropium 3 ML UPD VIAL UPD ×6 (02:53→21:35)
[2019-12-04] MEDS: DOXYCYCLINE 100 MG in Normal Saline 100 ML IVPB ×2 (03:03→15:53)
[2019-12-04] MEDS: Levothyroxine 100 MCG TAB PO (05:31)
[2019-12-04] MEDS: methylPREDNISolone SUCC 125 MG VIAL 80 MG IVP ×2 (05:31→14:49)
[2019-12-04] MEDS: oxyCODONE 5 mg/Acetaminophen 325 mg TAB 1 TAB PO ×4 (05:32→23:43)
[2019-12-04] MEDS: Ibuprofen 600 MG TAB PO ×4 (05:32→23:43)
[2019-12-04] MEDS: buPROPion-XL 150 MG TABCR 300 MG PO (07:55)
[2019-12-04] MEDS: Gemfibrozil 600 MG TAB PO ×2 (07:55→15:52)
[2019-12-04] MEDS: Omeprazole 20 MG CAPCR 40 MG PO (07:55)
[2019-12-04] MEDS: Nystatin POWDER 60 GM JAR TP ×2 (07:55→14:49)
[2019-12-04] MEDS: Thiamine 100 MG TAB PO (07:55)
[2019-12-04] MEDS: Pregabalin 50 MG CAP PO ×3 (07:56→19:32)
[2019-12-04] MEDS: guaiFENesin 600 MG TABCR PO ×2 (07:56→19:32)
[2019-12-04] MEDS: Senna TAB 1 TAB PO ×2 (07:56→19:32)
[2019-12-04] MEDS: busPIRone 15 MG TAB PO ×2 (07:56→19:32)
[2019-12-04] MEDS: Citalopram 20 MG TAB 40 MG PO (07:56)
[2019-12-04] MEDS: Docusate Sodium 100 MG CAP PO ×2 (07:56→19:32)
[2019-12-04] MEDS: Enoxaparin 40 MG/0.4 ML SYR SC (07:57)
[2019-12-04] MEDS: Furosemide 20 MG/2 ML VIAL IVP (07:57)
[2019-12-04 07:58] LABS: BE 7 mmol/L (-2-3); FIO2L 3.5 L; HCO3 31 mmol/L (22-26); Site Left Radial; TCO2 33 mmol/L (23-27); pCO2 49 mmHg (35-45); pH 7.41 (7.35-7.45); pO2 95 mmHg (80-105); sO2 97 % (95-98)
[2019-12-04 08:06] LABS: Abs Immature Grans 0.09 10^3/uL (0.0-0.06); Absolute Basophil Count 0.02 10^3/uL (0.0-0.2); Absolute Eosinophil Count 0.02 10^3/uL (0.0-0.7); Absolute Lymphocyte Count 0.48 10^3/uL (1.2-3.4); Absolute Monocyte Count 0.74 10^3/uL (0.1-0.8); Basophils % 0.1; Eosinophils % 0.1; HCT 36.3 % (36.0-46.0); HGB 11.6 g/dL (11.2-15.7); Immature Grans % 0.5; Lymphocytes % 2.9; MCH 29.6 pg (27.0-33.0); MCV 92.6 fL (80-95); MPV 10.4 fL (8.0-11.0); Monocytes % 4.5; Neutrophils % 91.9; Nucleated RBC 0 %; Platelet Count 245 10^3/uL (130-400); RBC 3.92 10^6/uL (3.93-5.22); RDW 14.1 % (11.7-14.6); RDW-SD 47.8 fL; WBC 16.46 10^3/uL (4.4-10.8)
[2019-12-04 08:08] LABS: Absolute Neutrophil Count 15.13 10^3/uL (1.2-6.7)
[2019-12-04 08:19] LABS: Anion Gap 5.7 mmol/L (3-11); BUN 22 mg/dL (7-18); CO2 30.3 mmol/L (21.0-32.0); Calcium 8.9 mg/dL (8.5-10.1); Chloride 95 mmol/L (98-107); Glucose 125 mg/dL (74-106); Magnesium 2.1 mg/dL (1.8-2.4); Potassium 4.7 mmol/L (3.5-5.1); Sodium 131 mmol/L (136-145)
--- NOTE | 2019-12-04 08:23 | OT.INIE ---
Occupational Therapy Notes Inpatient Occupational Therapy Evaluation Date: 12/04/19 Referring Doctor:Brenda Mcmanus MD OT Orders: Non-Urgent, limited ability Precautions: Fall, Standard PATIENT PROFILE/ADMITTING DIAGNOSIS: Pt is a 59 year old female who states that for the past couple weeks, she has had difficulty breathing. Pt was admitted to [facility] with dx of celiac artery stenosis, SMA, acute CHF, pulmonary HTN, (L) ventricular tract obstruction, chronic respiratory failure with hypoxia and hypercapnia, polypharmacy, abdominal pain, failure to thrive, chronic SOB, chronic cough, acute COPD with asthma, alcohol abuse, hypothyroidism, pulmoney hypotension, bipolar disorder. Past Medical History: Medical History Anxiety disorder Bipolar disorder COPD exacerbation Hypothyroidism (acquired) Nicotine dependence with current use Pulmonary histiocytosis x Respiratory failure Vertebral fracture, closed Surgical History History of right shoulder replacement Dr. Dee at [facility]. 5-6 years ago per pt. Hx of bilateral cataract extraction 2 years [address] pt[address] Dr. Santos. Hx of section x 2. Hx of hysterectomy 10 yrs ago, done in [place] per pt. Social History/Home Situation: Pt lives in a handicap accessible apartment building in [facility]. She states that she previously had HHPT, OT and nursing coming into her home 2x/week. She has Meals on Wheels. She has a daughter and 8 year old granddaughter who live in [place], [place]. She states that she gets rides with [facility] or a close friend who (A) when she needs help as well as (A) from her sister. 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 She states that she has a tub/shower with shower bench, she has a raised toilet and that she is able to eat/brush her teeth and hair and go to the bathroom all (I). She does not that d/t her (R) shoulder she has difficulty with house keeping and if her pain gets really bad it takes her longer to perform her ADLs/IADLs then she likes. She uses a quad cane or a crutch most of the time for functional mobility. She notes that this really depends on how tired she is. She has HH services come into her home for 2 hours, 2x per week. Equipment owned/DME: quad cane, FWW, wheel chair, shower bench, handicap accessible apartment, portable O2 nasal cannula, raised toilet seat. SUBJECTIVE: Pt was sitting in bed when OT arrived. She is agreeable to OT session. OBJECTIVE: General Observation: O2 nasal cannula, IV (L) UE, pt is breathing slightly heavy while answering questions. This seems to be her baseline. She is able to answer questions and is pleasant. Mental Status: A&Ox3 Pain: C/O pain in (R) shoulder with AROM which is chronic ROM: RUE Shoulder flexion limited pending shoulder surgery which she is being seen for on an outpatient basis. Elbow WNL, hand and digits WNL L UE AROM to 140*, elbow WNL, hand and digits WNL STRENGTH: RUE Shoulder flexion 3-/4, bicep 3+/5, tricep 3-/5, row boss hoeing is weak and symmetrical pt is (R) handed. LUE Shoulder flexion 3-/4, bicep 3+/5, tricep 3-/5, row boss hoeing is weak and symmetrical FUNCTIONAL MOBILITY/ADLS: Rolling (I) Supine-sit (I) DRESSING Dressing LE (I) don and doffing (B) socks in seated position. BAthing- seated in bed (I) with face, (B) UE and abdomen Grooming- (I) with brushing hair BALANCE: Static sitting Normal Dynamic Sitting Normal SPECIAL TESTS: Daily Activity Limitations Standardized Measure [facility] AM -PAC ?6 clicks? Daily Activity Inpatient Short Form: Raw score: 18, CMS 46.65% INFORMED CONSENT/EDUCATION: Pt instructed in purpose of OT Consult and plan of care. ASSESSMENT: Patient is a 59-year-old female referred to occupational therapy services with diagnosis of celiac artery stenosis, SMA, acute CHF, pulmonary HTN, (L) ventricular tract obstruction, chronic respiratory failure with hypoxia and hypercapnia, polypharmacy, abdominal pain, failure to thrive, chronic SOB, chronic cough, acute COPD with asthma, alcohol abuse, hypothyroidism, pulmoney hypotension, bipolar disorder. Patient presents with clinical signs and symptoms consistent with dx, as demonstrated by the following impairment level findings: decreased functional activity tolerance, decreased (B) UE strength, decreased (B) UE AROM, Pain in (R) shoulder (chronic), decreased gross motor control of (B) UE, SOB with functional performance of ADLs. Impairments are contributing to the following functional limitations: Unable to perform functional mobility without SOB, decreased functional activity tolerance with performance of ADLs, decreased cognitive awareness of (I) in ADLs, unable to perform ADLs (I) and requires (A). Patient is assessed as a Low 54244 complexity based on the following: History: See Above Examination: See Above Presentation: Evolving Decision Making: Low complexity GOALS Goals x1 week 1. Transfers (I) with cane 2. Dressing (I) in sitting position 3. Bathing (I) sitting in chair UE/LE 4. Toileting (I) on toilet 5. Eating (I) 6. Grooming (I) standing at sink brushing teeth and hair PLAN OF CARE/TREATMENT PLAN: 1x/day, 5 days/ week x 1week Initiate Occupational Therapy Services for bathing, dressing, grooming, toileting, eating, transfer training. DISCHARGE RECOMMENDATIONS OT recommends that pt return home with continued HH OT services vs. SNF for continued rehabilitation based on her decreased functional activity tolerance, decreased ability to perform her ADLs in her home setting per pt report and moderate risk for re-admission. TREATMENT TIME/MINUTES/CODES 55641, 20 minutes (07:45) [facility]
--- NOTE | 2019-12-04 09:00 | CMPROGNOTE_ITS ---
- If Service Date Differs Date of service: 12/04/19 Time of Service: 09:01 Care Management Progress Note S/O: Goldie was sitting up in a chair when CM met with her. She was pleasant but admitted that she is not feeling well. She shared that she cannot ambulate more than a few steps without getting extremely short of breath while wearing oxygen. She asked that CM contact her daughter to update her which will be done. CM sent referrals to all of the SNFs in [facility] as requested. A: Goldie is a 59 year old woman admitted on 12/02/19 with COPD exacerbation P:Goldie will likely be transferred to a SNF for short term rehab initially and perhaps transition to group home care or assisted living, preferably in a facility near her daughter. She will follow the plan of care at the facility. Transportation to be determined . CM will continue to support Goldie and her lars buckley and her discharge planning needs.
[2019-12-04] MEDS: Normal Saline Flush 10 ML SYR IVP ×2 (10:40→19:33)
[2019-12-04 11:54] LABS: pCO2 (Venous) 51 mmHg (41-51); pH (Venous) 7.38 (7.31-7.41); pO2 (Venous) 46 mmHg
[2019-12-04 11:55] LABS: BE (Venous) 5 mmol/L (-2-3); HCO3 (Venous) 30 mmol/L (23-28); O2 Sat (Venous) 80 %; TCO2 (Venous) 31 mmol/l (24-29)
[2019-12-04 12:00] LABS: Lactate 3.4 mmol/L (0.9-1.7)
[2019-12-04 12:14] LABS: Lactate 2.1 mmol/L (0.9-1.7)
--- NOTE | 2019-12-04 12:51 | PTTR_ITS ---
Date of service: 12/04/19 Time of Service: 12:51 PT Notes Visit Reasons: RESP DISTRESS,COPD EXACERBATION,FAILURE TO THRIVE Inpatient Physical Therapy Treatment Note [facility] Date: 12/04/19 PRECAUTIONS: Fall SUBJECTIVE: Goldie states that she feels a little better, but not great. She states that her children and friends have reservations about her returning to home and have suggested she go to a SNF. OBJECTIVE: PAIN: Patient c/o LBP with transfer and gait training BED MOBILITY/TRANSFERS Supine-sit: I with HOB at 50 degrees Sit-stand: SBA Stand-sit: SBA GAIT Assistive Device: FWW Weight bearing: Full Assist: SBA-S Distance: 100' Deviation: Slow/cautious pacing for energy conservation, mild SOB, increased LBP THEREX: Patient completed ankle pumps x1 minute, as instructed. TOILETING: Patient toileted with SBA for transfers, demonstrating increased SOB. ASSESSMENT: Patient tolerated session with c/o increased LBP with gait training and transfer. She was able to tolerate a progression in gait distance with FWW support and SBA-supervision, demonstrating only mild SOB. PLAN: Continue with gait training and global strengthening for continued progr ession toward baseline level of function. TREATMENT CODE/TIME: 30 minutes; 64395 x2
[2019-12-04] MEDS: cefTRIAXone 1 GM/50 ML BAG IVPB (14:49)
[2019-12-04] MEDS: MORPHine 2 MG/ML SYR IVP ×2 (15:03→19:32)
--- NOTE | 2019-12-04 15:39 | CHAPLAIN ---
Goldie was sitting up in a chair when I visited. She said she will likely be going to a facility closer to her daughter in [place]. Goldie has a small apartment in [facility] currently, which she really likes, but she said she realizes she needs to be closer to family. She has a 10 year old granddaughter in the [facility] and is looking forward to being near her.
--- NOTE | 2019-12-04 15:44 | W.PM.PROGNOT ---
Date of Service Date of service: 12/04/19 Time of Service: 15:48 Assessment and Plan Assessment and plan (1) Acute exacerbation of COPD with asthma: Status: Acute Assessment and plan: Patient has a h/o of end-stage oxygen and steroid-dependent COPD. She has a minimal consolidation on imaging (RLL, RML, inferior lingula), and so pneumonia could not be excluded. Better today. Continue ceftriaxone, doxycycline, but start to come down on steroids. Repeat COVID-19 PCR negative. Palliative care is consulted to discuss goals of care. Her symptoms could be multifactorial, and we need to address a possible cardiac component as well. (2) Acute CHF: Status: Acute Assessment and plan: Await repeat echo. Cardiology consulted. Patient's echocardiogram from 05/2017 revealed LVOT obstruction with max gradient of 35 mmHg, hyperdynamic systolic function, normal cavity size, EF of 65-70%, and no evidence of diastolic dysfunction. She had elevated pulmonary pressures of 35 mm Hg to 45 mm Hg then. LVOT could most definitely result in acute CHF. Pulmonary hypertension could also be contributing to her shortness of breath. Of course, we are also suspicious that the patient does not take her levothyroxine as prescribed, which could also result in acute CHF. Better since initiation of lasix, but looks clinically euvolemic now, so will d/c. (3) Chronic respiratory failure with hypoxia and hypercapnia: Status: Chronic Assessment and plan: As above (4) Abdominal pain: Status: Resolved Assessment and plan: Better today. Debilitating abdominal pain likely on the basis of severe constipation. Additionally, the patient expresses symptoms c/w urinary retention - Still being ruled out. Also, in 2018, there appears to have been mention of celiac and SMA stenosis on her imaging, for which there was a vascular referral, but no evidence that the patient ever followed up. This is not seen by preliminary read on her latest CT. Her lactates are getting better and are more insurance sales representative of her beta agonist use. Finally, there may be a neuropathic/radicular component to her back/abdominal pain. She is already on lyrica. No change today. Continue scheduled bowel regimen. (5) Hypothyroidism (acquired): Status: Chronic Assessment and plan: Severe. Question of non-compliance with levothyroxine. Dose increased. (6) Alcohol abuse: Status: Chronic Assessment and plan: Continue monitoring on CIWA. No evidence of withdrawal currently. (7) Adult failure to thrive: Status: Acute Assessment and plan: Agrees to go to SNF on discharge. Palliative care is consulted. (8) Pulmonary histiocytosis x: Status: Acute Assessment and plan: Continue to follow-up with pulmonology as outpatient. (9) Bipolar disorder: Status: Acute Assessment and plan: Continued risperidone (I adjusted the dose to her outpatient 1.5 mg HS). I agree that she seems to be well compensated at this time. (10) Polypharmacy: Status: Acute Assessment and plan: Agree that this is making compliance impossible. Consult palliative care as well as attempt to condense medications to most important ones. (11) Constipation: Status: Resolved Assessment and plan: Continue aggressive bowel regimen. (12) Left ventricular outflow tract obstruction: Status: Chronic Assessment and plan: As above - obtain echo and cardiology consult. (13) Pulmonary hypertension: Status: Chronic Assessment and plan: Euvolemic today. Await echo. 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 Final CT read is still pending. (15) Celiac artery stenosis: Status: Chronic Assessment and plan: As above (16) DVT prophylaxis: Status: Acute Assessment and plan: SC lovenox (17) Discharge planning issues: Status: Acute Assessment and plan: Full code. Palliative care consulted. Will require SNF placement. Subjective Subjective Interval history since last seen: Goldie states she feels better today - less short of breath, and her pain is controlled. She denies dizziness, chest pain, nausea. No BM - feels constipated. No urinary retention on PVR this am. Exam Narrative Exam Narrative: General: Very pleasant middle-aged female who looks a lot better today; no dyspnea/tachypnea observed, A&Ox3 HEENT: EOMI, MMM Heart: RRR, no m/r/g Lungs: decreased expiratory wheezing B, much improved Abdomen: soft, nontender on exam, nondistended Extremities:t trace pitting edema BLEs while in TEDs Objective Last Vital Signs Temp 36.9 C 12/04/19 11:39 Pulse 100 H 12/04/19 14:01 Resp 16 12/04/19 14:01 BP 135/80 12/04/19 11:39 Pulse Ox 98 12/04/19 14:01 Laboratory Results - last 24 hr 12/01/19 12/01/19 12/03/19 21:20 21:20 10:34 WBC RBC Hgb Hct MCV MCH MCHC RDW Plt Count MPV Immature Gran % Neutrophils % Lymphocytes % Monocytes % Eosinophils % Basophils % Nucleated RBC % Absolute Neutrophils Absolute Lymphocytes Absolute Monocytes Absolute Eosinophils Absolute Basophils Sample Site ABG Sample Site ABG pH ABG pCO2 ABG pO2 ABG HCO3 ABG Total CO2 ABG O2 Saturation ABG Base Excess VBG pH Cancelled 7.38 VBG pCO2 Cancelled 51 VBG pO2 Cancelled 46 VBG HCO3 Cancelled 30 H VBG Total CO2 Cancelled 31 H VBG O2 Saturation Cancelled 80 VBG Base Excess Cancelled 5 H VBG Lactate Oxygen Liter Flow FiO2 FiO2 (liters per min) Sodium Potassium Chloride Carbon Dioxide Anion Gap BUN Creatinine Estimated GFR/1.73 m2 Glucose Calcium Magnesium Urine Color Urine Clarity Urine pH Ur Specific [place] Urine Protein Urine Ketones Urine Blood Urine Nitrite Urine Bilirubin Urine Urobilinogen Ur Leukocyte Esterase Urine Glucose COVID-19 PCR Negative Nasopharyn COVID-19 PCR Not Applicable Ref Test Perform Site [place] [facility] 12/03/19 12/03/19 12/03/19 14:30 16:55 16:55 WBC RBC Hgb Hct MCV MCH MCHC RDW Plt Count MPV Immature Gran % Neutrophils % Lymphocytes % Monocytes % Eosinophils % Basophils % Nucleated RBC % Absolute Neutrophils Absolute Lymphocytes Absolute Monocytes Absolute Eosinophils Absolute Basophils Sample Site ABG Sample Site ABG pH ABG pCO2 ABG pO2 ABG HCO3 ABG Total CO2 ABG O2 Saturation ABG Base Excess VBG pH VBG pCO2 VBG pO2 VBG HCO3 VBG Total CO2 VBG O2 Saturation VBG Base Excess VBG Lactate Cancelled 3.4 H* Oxygen Liter Flow FiO2 FiO2 (liters per min) Sodium Potassium Chloride Carbon Dioxide Anion Gap BUN Creatinine Estimated GFR/1.73 m2 Glucose Calcium Magnesium Urine Color Yellow Urine Clarity Clear Urine pH 5.5 Ur Specific [place] 1.015 Urine Protein Negative Urine Ketones Negative Urine Blood Negative Urine Nitrite Negative Urine Bilirubin Negative Urine Urobilinogen 0.2 Ur Leukocyte Esterase Negative Urine Glucose Negative COVID-19 PCR Nasopharyn COVID-19 PCR Ref Test Perform Site 12/03/19 12/03/19 12/04/19 20:07 20:07 07:00 WBC RBC Hgb Hct MCV MCH MCHC RDW Plt Count MPV Immature Gran % Neutrophils % Lymphocytes % Monocytes % Eosinophils % Basophils % Nucleated RBC % Absolute Neutrophils Absolute Lymphocytes Absolute Monocytes Absolute Eosinophils Absolute Basophils Sample Site ABG Sample Site ABG pH ABG pCO2 ABG pO2 ABG HCO3 ABG Total CO2 ABG O2 Saturation ABG Base Excess VBG pH VBG pCO2 VBG pO2 VBG HCO3 VBG Total CO2 VBG O2 Saturation VBG Base Excess VBG Lactate Cancelled 2.1 H* Oxygen Liter Flow FiO2 FiO2 (liters per min) Sodium 131 L Potassium 4.7 Chloride 95 L Carbon Dioxide 30.3 Anion Gap 5.7 BUN 22 H D Creatinine 1.10 H Estimated GFR/1.73 m2 51.20 Glucose 125 H Calcium 8.9 Magnesium 2.1 Urine Color Urine Clarity Urine pH Ur Specific [place] Urine Protein Urine Ketones Urine Blood Urine Nitrite Urine Bilirubin Urine Urobilinogen Ur Leukocyte Esterase Urine Glucose COVID-19 PCR Nasopharyn COVID-19 PCR Ref Test Perform Site 12/04/19 12/04/19 12/04/19 07:00 07:28 07:45 WBC 16.46 H RBC 3.92 L Hgb 11.6 Hct 36.3 MCV 92.6 MCH 29.6 MCHC 32.0 RDW 14.1 Plt Count 245 MPV 10.4 Immature Gran % 0.5 Neutrophils % 91.9 Lymphocytes % 2.9 Monocytes % 4.5 Eosinophils % 0.1 Basophils % 0.1 Nucleated RBC % 0 Absolute Neutrophils 15.13 H Absolute Lymphocytes 0.48 L Absolute Monocytes 0.74 Absolute Eosinophils 0.02 Absolute Basophils 0.02 Sample Site Left radial ABG Sample Site Cancelled ABG pH 7.41 ABG pCO2 49 H ABG pO2 95 ABG HCO3 31 H ABG Total CO2 33 H ABG O2 Saturation 97 ABG Base Excess 7 H VBG pH VBG pCO2 VBG pO2 VBG HCO3 VBG Total CO2 VBG O2 Saturation VBG Base Excess VBG Lactate Oxygen Liter Flow Cancelled FiO2 Cancelled FiO2 (liters per min) 3.5 Sodium Potassium Chloride Carbon Dioxide Anion Gap BUN Creatinine Estimated GFR/1.73 m2 Glucose Calcium Magnesium Urine Color Urine Clarity Urine pH Ur Specific [place] Urine Protein Urine Ketones Urine Blood Urine Nitrite Urine Bilirubin Urine Urobilinogen Ur Leukocyte Esterase Urine Glucose COVID-19 PCR Nasopharyn COVID-19 PCR Ref Test Perform Site
--- NOTE | 2019-12-04 19:48 | PCNE_ITS ---
Date of service: 12/04/19 Time of Service: 17:48 History of Present Illness Narrative: Goldie is a 59-year-old woman who is oxygen dependent on 3 L as well as steroid-dependent. She has multiple multiple comorbidities including history of alcohol abuse, pneumonia x7 last year, COPD, cerebellar degeneration, Korsakoff syndrome. She is unable to take care of herself and manage medicati ons etc. she was admitted for an acute exacerbation of her COPD and also found to have pneumonia. Dr. Mcmanus had met with Goldie and talk to her about CODE STATUS. Goldie was very concerned that if she was dying that she not be in pain. Consults Consult date: 12/04/19 Requesting physician: Brenda Mcmanus Assessment and Plan Assessment and plan (1) Pulmonary hypertension: Status: Chronic (2) Left ventricular outflow tract obstruction: Status: Chronic (3) Chronic respiratory failure with hypoxia and hypercapnia: Status: Chronic (4) Chronic shortness of breath: Status: Acute (5) Hypothyroidism (acquired): Status: Chronic (6) Bipolar disorder: Status: Acute (7) Palliative care patient: Status: Acute Assessment and plan: We spent much of our time today going through next steps. Specifically she feels that she will go to a rehab/senior living closer to her children over in [place]. She understands that she cannot handle the details of her life. COPD exacerbation doing well with present regime Discussion regarding CO LST?we had a long discussion she states that she was intubated 7 times last year and she does not want to be intubated anymore. She also does not want to in pain. We completed the CO LST form. She is a DNR/DNI, she still wants to go to the hospital should she become acutely short of breath, she is willing to have antibiotics and IV fluids, she does not want a feeding tube. She understands that she can change her mind but really she feels very settled and not going through intubation again. I completed the form with her and have given to the clerical secretary to place in her record as well as to send to [facility], [facility], and the original to the patient. I would like to follow Goldie outpatient if she remains in the area please make a palliative consult upon discharge I have spent more than 50% of time in counseling with this patient. (8) Physician orders for life-sustaining treatment (POLST) form indicates patient wish for [id number] status: Status: Acute Review of Systems Constitutional Constitutional: Reports body ache(s), Reports daytime sleepiness, Reports difficulty sleeping, Reports increased appetite and Reports lethargy Comments: Goldie's biggest concern is her shortness of breath. And she is most concerned that she did not in pain. FOR[facility]LY [facility], [facility] Medical History (Updated 12/05/19 @ 10:18 by Leni Nelson MD, [place]) Anxiety disorder Bipolar disorder Celiac artery stenosis COPD exacerbation Hypothyroidism (acquired) Left ventricular outflow tract obstruction Nicotine dependence with current use Pulmonary histiocytosis x Pulmonary hypertension Respiratory failure SMA stenosis Vertebral fracture, closed Surgical History History of right shoulder replacement Dr. Dee at [facility]. 5-6 years ago per pt. Hx of bilateral cataract extraction [address] Santos. Hx of section x 2. Hx of hysterectomy 10 yrs ago, done in [place] per pt. Social History Smoking/Tobacco Use Status: Current every day Tobacco Type: cigarettes Tobacco: How many years used: 40 Alcohol Intake: current Alcohol Intake frequency: a few times a week Alcohol type: beer Counseling given: Yes Details: says she is in AA and talks to her sponsor daily, drinking at 9 am @ visit Drug use: Never Substance use type: does not use Adopted: Yes Caregiver/Support person: No Foster care: Yes Household members: none Housing: apartment Number of Children: 1 number of grandchildren: 1 Pets and animals: No Current gender identity: female What is your relationship status?: How often do you get together with friends or relatives?: three or more times per week Panel score (0-1 are the most socially isolated patients): 1 What type of physical activity do you participate in: none Do you feel safe at home: Yes Do you feel safe in your relationship?: Yes Exam Narrative Exam Narrative: Goldie is sitting in the chair. She is answering in complete sentences. She does not appear to be in pain. She looks a little bit cushingoid. She is engaging and looks me in the eye. She does not appear anxious during our visit. She seems to ponder my questions regarding CO LST form. Results Last Vital Signs Temp 98.4 F 12/04/19 18:55 Pulse 101 H 12/04/19 18:55 Resp 19 12/04/19 18:55 BP 139/83 12/04/19 18:55 Pulse Ox 92 12/04/19 18:55 Labs Result diagrams: 12/05/19 06:53 12/05/19 06:53 Labs: Laboratory Results - last 24 hr 12/01/19 12/01/19 12/03/19 21:20 21:20 10:34 WBC RBC Hgb Hct MCV MCH MCHC RDW Plt Count MPV Immature Gran % Neutrophils % Lymphocytes % Monocytes % Eosinophils % Basophils % Nucleated RBC % Absolute Neutrophils Absolute Lymphocytes Absolute Monocytes Absolute Eosinophils Absolute Basophils Sample Site ABG Sample Site ABG pH ABG pCO2 ABG pO2 ABG HCO3 ABG Total CO2 ABG O2 Saturation ABG Base Excess VBG pH Cancelled 7.38 VBG pCO2 Cancelled 51 VBG pO2 Cancelled 46 VBG HCO3 Cancelled 30 H VBG Total CO2 Cancelled 31 H VBG O2 Saturation Cancelled 80 VBG Base Excess Cancelled 5 H VBG Lactate Oxygen Liter Flow FiO2 FiO2 (liters per min) Sodium Potassium Chloride Carbon Dioxide Anion Gap BUN Creatinine Estimated GFR/1.73 m2 Glucose Calcium Magnesium COVID-19 PCR Negative Nasopharyn COVID-19 PCR Not Applicable Ref Test Perform Site [place] [facility] 12/03/19 12/03/19 12/03/19 16:55 16:55 20:07 WBC RBC Hgb Hct MCV MCH MCHC RDW Plt Count MPV Immature Gran % Neutrophils % Lymphocytes % Monocytes % Eosinophils % Basophils % Nucleated RBC % Absolute Neutrophils Absolute Lymphocytes Absolute Monocytes Absolute Eosinophils Absolute Basophils Sample Site ABG Sample Site ABG pH ABG pCO2 ABG pO2 ABG HCO3 ABG Total CO2 ABG O2 Saturation ABG Base Excess VBG pH VBG pCO2 VBG pO2 VBG HCO3 VBG Total CO2 VBG O2 Saturation VBG Base Excess VBG Lactate Cancelled 3.4 H* Cancelled Oxygen Liter Flow FiO2 FiO2 (liters per min) Sodium Potassium Chloride Carbon Dioxide Anion Gap BUN Creatinine Estimated GFR/1.73 m2 Glucose Calcium Magnesium COVID-19 PCR Nasopharyn COVID-19 PCR Ref Test Perform Site 12/03/19 12/04/19 12/04/19 20:07 07:00 07:00 WBC 16.46 H RBC 3.92 L Hgb 11.6 Hct 36.3 MCV 92.6 MCH 29.6 MCHC 32.0 RDW 14.1 Plt Count 245 MPV 10.4 Immature Gran % 0.5 Neutrophils % 91.9 Lymphocytes % 2.9 Monocytes % 4.5 Eosinophils % 0.1 Basophils % 0.1 Nucleated RBC % 0 Absolute Neutrophils 15.13 H Absolute Lymphocytes 0.48 L Absolute Monocytes 0.74 Absolute Eosinophils 0.02 Absolute Basophils 0.02 Sample Site ABG Sample Site ABG pH ABG pCO2 ABG pO2 ABG HCO3 ABG Total CO2 ABG O2 Saturation ABG Base Excess VBG pH VBG pCO2 VBG pO2 VBG HCO3 VBG Total CO2 VBG O2 Saturation VBG Base Excess VBG Lactate 2.1 H* Oxygen Liter Flow FiO2 FiO2 (liters per min) Sodium 131 L Potassium 4.7 Chloride 95 L Carbon Dioxide 30.3 Anion Gap 5.7 BUN 22 H D Creatinine 1.10 H Estimated GFR/1.73 m2 51.20 Glucose 125 H Calcium 8.9 Magnesium 2.1 COVID-19 PCR Nasopharyn COVID-19 PCR Ref Test Perform Site 12/04/19 12/04/19 07:28 07:45 WBC RBC Hgb Hct MCV MCH MCHC RDW Plt Count MPV Immature Gran % Neutrophils % Lymphocytes % Monocytes % Eosinophils % Basophils % Nucleated RBC % Absolute Neutrophils Absolute Lymphocytes Absolute Monocytes Absolute Eosinophils Absolute Basophils Sample Site Left radial ABG Sample Site Cancelled ABG pH 7.41 ABG pCO2 49 H ABG pO2 95 ABG HCO3 31 H ABG Total CO2 33 H ABG O2 Saturation 97 ABG Base Excess 7 H VBG pH VBG pCO2 VBG pO2 VBG HCO3 VBG Total CO2 VBG O2 Saturation VBG Base Excess VBG Lactate Oxygen Liter Flow Cancelled FiO2 Cancelled FiO2 (liters per min) 3.5 Sodium Potassium Chloride Carbon Dioxide Anion Gap BUN Creatinine Estimated GFR/1.73 m2 Glucose Calcium Magnesium COVID-19 PCR Nasopharyn COVID-19 PCR Ref Test Perform Site
[2019-12-04] MEDS: methylPREDNISolone SUCC 125 MG VIAL 60 MG IVP (21:37)
[2019-12-04] MEDS: traZODone 100 MG TAB PO (21:38)
[2019-12-04] MEDS: risperiDONE 1 MG TAB 1.5 MG PO (21:38)
[2019-12-05] VITALS (14 sets, daily range): BP systolic 111–146; BP diastolic 73–107; PULSE 96–111; RESP 2–24; TEMP 36.3–36.8; O2SAT 86–100
[2019-12-05] MEDS: Albuterol/Ipratropium 3 ML UPD VIAL UPD ×6 (01:46→22:29)
[2019-12-05] MEDS: MORPHine 2 MG/ML SYR IVP ×4 (02:24→19:35)
[2019-12-05] MEDS: Normal Saline Flush 10 ML SYR IVP ×3 (02:25→17:17)
[2019-12-05] MEDS: DOXYCYCLINE 100 MG in Normal Saline 100 ML IVPB ×2 (03:27→15:45)
[2019-12-05] MEDS: oxyCODONE 5 mg/Acetaminophen 325 mg TAB 1 TAB PO ×4 (05:25→22:28)
[2019-12-05] MEDS: methylPREDNISolone SUCC 125 MG VIAL 60 MG IVP ×3 (05:25→22:28)
[2019-12-05] MEDS: Ibuprofen 600 MG TAB PO ×4 (05:25→22:28)
[2019-12-05] MEDS: Levothyroxine 100 MCG TAB PO (05:26)
[2019-12-05 07:18] LABS: Abs Immature Grans 0.12 10^3/uL (0.0-0.06); Absolute Monocyte Count 0.73 10^3/uL (0.1-0.8); Absolute Neutrophil Count 12.29 10^3/uL (1.2-6.7); HCT 40.1 % (36.0-46.0); HGB 12.6 g/dL (11.2-15.7); Immature Grans % 0.9; Lymphocytes % 3.2; MCH 29.2 pg (27.0-33.0); MCHC 31.4 % (32.0-36.0); MPV 9.8 fL (8.0-11.0); Monocytes % 5.4; Neutrophils % 90.5; Nucleated RBC 0 %; Platelet Count 244 10^3/uL (130-400); RBC 4.31 10^6/uL (3.93-5.22); RDW 14.1 % (11.7-14.6); RDW-SD 47.8 fL; WBC 13.58 10^3/uL (4.4-10.8)
[2019-12-05 07:19] LABS: Absolute Lymphocyte Count 0.43 10^3/uL (1.2-3.4)
[2019-12-05 07:40] LABS: Anion Gap 7.7 mmol/L (3-11); BUN 23 mg/dL (7-18); CO2 31.3 mmol/L (21.0-32.0); CREATININE 1.07 mg/dL (0.55-1.02); Calcium 9.5 mg/dL (8.5-10.1); Chloride 95 mmol/L (98-107); Estimated GFR 52.86 (mL/min/1.73m2); Glucose 152 mg/dL (74-106); Magnesium 2.1 mg/dL (1.8-2.4); Potassium 4.2 mmol/L (3.5-5.1); Sodium 134 mmol/L (136-145)
[2019-12-05] MEDS: Gemfibrozil 600 MG TAB PO ×2 (09:38→15:29)
[2019-12-05] MEDS: guaiFENesin 600 MG TABCR PO ×2 (09:38→19:26)
[2019-12-05] MEDS: buPROPion-XL 150 MG TABCR 300 MG PO (09:38)
[2019-12-05] MEDS: Senna TAB 1 TAB PO ×2 (09:38→19:27)
[2019-12-05] MEDS: Citalopram 20 MG TAB 40 MG PO (09:38)
[2019-12-05] MEDS: Docusate Sodium 100 MG CAP PO ×2 (09:38→19:27)
[2019-12-05] MEDS: busPIRone 15 MG TAB PO ×2 (09:39→19:26)
[2019-12-05] MEDS: Omeprazole 20 MG CAPCR 40 MG PO (09:39)
[2019-12-05] MEDS: Pregabalin 50 MG CAP PO ×3 (09:39→19:26)
[2019-12-05] MEDS: Thiamine 100 MG TAB PO (09:40)
[2019-12-05] MEDS: Enoxaparin 40 MG/0.4 ML SYR SC (09:40)
--- NOTE | 2019-12-05 09:41 | OT.INTREAT ---
Date of service: 12/05/19 Time of Service: 09: Occupational Therapy Notes Occupational Therapy Inpatient Treatment Note Date: 12/05/19 PRECAUTIONS: Fall, Standard, DNR/DNI SUBJECTIVE: Pt was sitting in her chair when OT arrived. She reports that she just returned from having an echo and had to stop due to her pain in her side. OBJECTIVE: PAIN:c/o pain in side when standing up from toilet in bathroom FUNCTIONAL MOBILITY Sit-stand: SBA Stand-sit: SBA Bed-Chair: CGA with cane Chair-bed: CGA with cane BATHING: sitting in bathroom Upper Body: (I) face, (B) UE and abdomen Lower Body: (I) (B) LE DRESSING: sitting in bathroom Upper Extremity: Mod (A) don and doffing hospital gown Lower Extremity: Mod (A) don and doffing underwear in standing position GROOMING: standing at sink (I) brushing hair ASSESSMENT/PLAN: Pt was able to perform her bathing and dressing in the bathroom and was performing this with increased (I) in the sitting position. When she went to transition from the bathroom to the chair she had SOB. RN in the room at the time increased her O2 as pt was having difficulty breathing. After resting in the seated position she was able to get her breathing under control. She was an active participant in todays session and is receptive to education and training provided to her. TREATMENT CODES/TIME: [id number], 20 minutes (09:20) Gardenia Strong, OTR/L [facility]
[2019-12-05] MEDS: Nystatin POWDER 60 GM JAR TP ×3 (09:44→19:28)
--- NOTE | 2019-12-05 10:04 | W.NUTRFU ---
Date of service: 12/05/19 Time of Service: 10:04 Nutritional Follow up NOTE: 59 year old female admitted with CHF, end stage COPD with hx of adult failure to thrive, ETOH abuse. BUN/Cre elevated, following renal diet with 100% meal completion. BMI indicates mild obesity. Does not appear to be at risk for nutritional decline at this time. Time Spent in Nutritional Counseling and Treatment: 0 time spent face to face
--- NOTE | 2019-12-05 13:25 | PT.INTREAT ---
Date of service: 12/05/19 Time of Service: 13:25 PT Notes Visit Reasons: RESP DISTRESS,COPD EXACERBATION,FAILURE TO THRIVE Inpatient Physical Therapy Treatment Note [facility] Date: 12/05/19 PRECAUTIONS: Fall SUBJECTIVE: Goldie states that she feels a little better, but not great. She reports that referrals have been sent to several SNFs in the [facility]. OBJECTIVE: Not available for afternoon PT session due to testing PAIN: Patient c/o LBP at the end of gait training BED MOBILITY/TRANSFERS Sit-stand: S Stand-sit: S GAIT Assistive Device: FWW Weight bearing: Full Assist: S Distance: 400' Deviation: Slow/cautious pacing for energy conservation, mild SOB, increased LBP, 4L O2 via NC ASSESSMENT: Patient tolerated session with c/o increased LBP at the end of gait training. She was able to tolerate a progression in gait distance with FWW support and supervision, demonstrating only mild SOB. PLAN: Continue with gait training and global strengthening for continued progression toward baseline level of function. TREATMENT CODE/TIME: 25 minutes; [id number] x2
[2019-12-05] MEDS: cefTRIAXone 1 GM/50 ML BAG IVPB (14:26)
--- NOTE | 2019-12-05 14:42 | DI.US_ITS ---
APPROVED REPORT EXAM: Comprehensive 2D, Doppler, and color-flow Echocardiogram Patient Location: In-Patient Room/Bed: 229 Gold Assayer: Ирина Marie RDCS (AE) Indications: LVOT obstruction, Pulmonary HTN, CHF Other Information Study Quality: Fair. Technically limited study due to inability to position patient. Conclusion Left Ventricle : The left ventricle is normal size. The left ventricular systolic function is normal. The left ventricular ejection fraction is within the normal range. There is normal left ventricular wall thickness. Left ventricular outflow tract gradient is present. Due to poor patient windows this is difficult to quantify. It appears as though the peak gradient is about 25-30 mmHg with Valsalva. There is normal LV segmental wall motion. The left ventricular diastolic function is normal. LVEF is 55%. There is no systolic anterior motion of the mitral valve. Right Ventricle : Right ventricle is not well visualized. Right ventricular systolic function could n ot be assessed. Atria : The left atrium size is normal. Right atrium is not well visualized. Great Vessels : The aortic root is normal in size. The ascending aorta is moderately dilated. Aortic arch is not well visualized. IVC is normal in size and collapses >50% with inspiration. Compared to study from 05/10/2017, there is no significant change. Wall motion Left Ventricle The left ventricle is normal size. The left ventricular systolic function is normal. The left ventric ular ejection fraction is within the normal range. There is normal left ventricular wall thickness. L eft ventricular outflow tract gradient is present. Due to poor patient windows this is difficult to q uantify. It appears as though the peak gradient is about 25-30 mmHg with Valsalva. There is normal LV segmental wall motion. The left ventricular diastolic function is normal. There is no ventricular se ptal defect visualized. LVEF is 55%. Right Ventricle Right ventricle is not well visualized. Right ventricular systolic function could not be assessed. Atria The left atrium size is normal. Right atrium is not well visualized. The interatrial septum is intact with no evidence for an atrial septal defect. Aortic Valve The aortic valve is not well visualized. Aortic valve is probably trileaflet. There is no aortic valv ular stenosis. No aortic regurgitation is present. Mitral Valve Mild mitral annular calcification. No evidence of mitral valve stenosis. Trace mitral regurgitation. Tricuspid Valve The tricuspid valve is normal in structure. There is no tricuspid valve stenosis. Trace tricuspid reg urgitation. Pulmonic Valve The pulmonary valve is normal in structure. There is no pulmonic valvular stenosis. There is no pulmo giuseppe valvular regurgitation. Great Vessels The aortic root is normal in size. The ascending aorta is moderately dilated. Aortic arch is not well visualized. IVC is normal in size and collapses >50% with inspiration. Pericardium There is no pericardial effusion. 2D Dimensions IVSD d PLAX 0.98 cm F: 0.6-1.0 LV Vol A2C d MOD 54.1 mL LVPW d PLAX 0.99 cm F: 0.6 - 1.0 LV Vol A4C d MOD 70.8 mL LVID d PLAX 4.26 cm F: 3.8 - 5.2 LA vol/ BSA A2C s A-L 14.1 mL/m2 LVDs 3.00 cm F: 2.2 - 3.5 LA vol/ BSA A4C s A-L 18.8 mL/m2 Ao Root d 2.99 cm F: 2.7 - 3.3 LA Vol/ BSA Biplane s A-L 18.9 mL/m2 Ao Asc Diam d 3.66 cm F: 2.3 - 3.1 LA Area A4C s MOD 13.66 cm2 LV EF Teichholz 56.2 % LA Area A2C s MOD 10.21 cm2 LVEF (Zaldivar's) 54.52 % F: 54 - 74 LV EF A4C MOD 54.4 % LV Volume 48.79 mL F: 46 - 106 LV EF A2C MOD 53.3 % LV Volume Index 26.95 mL/m2 F: 29 - 61 LV EF Biplane MOD 54.5 % LV Vol Biplane MOD 62.8 mL SV 34.26 mL FS 29.05 % SV Index 18.94 mL/m2 M-Mode TAPSE 2.17 cm (M/F) >1.7 LV Diastology MV E' medial 0.098 (>0.07 m/s) E/A Ratio 0.6 LV E/e MED 6.85 (<14) MV E Vmax 0.67 (0.4-1.3 m/s) MV E' lateral 0.111 (>0.1 m/s) MV A Vmax 1.15 (0.4-1.3 m/s) LV E/e LAT 6.05 (<14) MV E/A Ratio 0.57 MV E/E' medial 6.88 MV E/E' lateral 6.07 Aortic Valve LVOT Area 3.84 cm2 AoV Area Vmax 2.68 cm2 LVOT Vmax 0.99 m/s AoV Area/ BSA (Vmax) 1.48 cm2/m2 LVOT Mean Phillip. 0.72 m/s JALEEL Mean Phillip. 2.57 cm2 LVOT Peak Grad 3.9 mmHg JALEEL Mean Phillip. Index 1.42 cm2/m2 LVOT Mean Grad 2.3 mmHg LVOT VTI 0.146 m LVOT Diam s 2.20 cm AoV Vmax 1.42 m/s Velocity Ratio 0.69 AoV Mean Phillip. 1.08 m/s AoV Peak Grad 8.0 mmHg LVOT SV 56.18 mL AoV Mean Grad 5.0 mmHg AoV VTI 0.214 m AoV Area VTI 2.62 cm2 AoV Area/ BSA (VTI) 1.45 cm/m2 Mitral Valve MV DT 228 (160-240 msec) MV PHT 66 msec MV Area PHT 3.33 cm2 Pulmonary Valve PV Vmax 1.36 (0.5-1.5 m/s) RVOT Peak Gr. 3.77 mmHg PV Peak Grad 7.4 mmHg RVOT Mean Gr. 2.15 mmHg PV Mean Grad 3.7 mmHg RVOT VTI 0.149 m PV VTI 0.215 m RVOT Vmax 0.97 m/s Tricuspid Valve TR Peak Grad 20.2 mmHg TR Vmax 2.25 m/s RA Pressure 3.00 mmHg RVSP (TR) 23.2 mmHg
--- NOTE | 2019-12-05 15:34 | PDOC.CMPRO ---
Care Management Progress Note S/O: Goldie was sitting up in a chair when CM met with her. She was pleasant in interaction and shared hopes for progressing faster, while verbalizing understanding of treatment plan and anticipated slow progression. CM reviewed discharge plan for SNF in [facility]; Goldie remains agreeable. Awaiting determination from SNFs; CM will follow up with facilities. CM continues to follow. Referrals sent SNFs in [facility] and [facility] as requested. A: Goldie is a 59 year old woman admitted on 12/02/19 with COPD exacerbation P: Goldie will likely be transferred to a SNF for short term rehab initially and perhaps transition to [employer] [facility] care or assisted living, preferably in a facility near her daughter. ransportation to be determined. CM will continue to support Goldie and her family and her discharge planning needs.
[2019-12-05] MEDS: Furosemide 20 MG/2 ML VIAL IVP (17:17)
--- NOTE | 2019-12-05 17:51 | PGE_ITS ---
Date of Service Date of service: 12/05/19 Time of Service: 17:54 Assessment and Plan Assessment and plan (1) Acute exacerbation of COPD with asthma: Status: Acute Assessment and plan: Patient has a h/o of end-stage oxygen and steroid- dependent COPD. She has a minimal consolidation on imaging (RLL, RML, inferior lingula), and so pneumonia could not be excluded. Improving. Continue ceftriaxone, doxycycline. Keep current dose of steroids. Repeat COVID-19 PCR negative. Signed a COLST form with DNR/DNI today. Her symptoms could be multifactorial, and we need to address a possible cardiac component as well. (2) Acute CHF: Status: Acute Assessment and plan: Patient had difficulty tolerating the echo today. Discussed with cardiology, and the pictures were of poor quality. She does appear to have an LVOT gradient. EF of 55%, no diastolic dysfunction, and RV was not visualized. Informal recommendations were made to ensure that the patient is not fluid overloaded or over diuresed. She is getting a one time dose of lasix today. She will need outpatient cardiology follow up. (3) Chronic respiratory failure with hypoxia and hypercapnia: Status: Chronic Assessment and plan: As above (4) Abdominal pain: Status: Resolved Assessment and plan: Better today. Debilitating abdominal pain was likely on the basis of severe constipation. No urinary retention present at this time. ?mesenteric angina - the patient was previosly referred to vascular surgery for SMA stenosis, though this is not clearly seen on latest CT. Finally, there may be a neuropathic/radicular component to her back/abdominal pain. She is already on lyrica. No change today. Continue scheduled bowel regimen - informed nursing of need to give PRNs today. (5) Hypothyroidism (acquired): Status: Chronic Assessment and plan: Severe. Question of non-compliance with levothyroxine. Dose increased on this admission. (6) Alcohol abuse: Status: Chronic Assessment and plan: Continue monitoring on CIWA. No evidence of withdrawal currently. (7) Adult failure to thrive: Status: Acute Assessment and plan: Agrees to go to SNF on discharge. DNR/DNI. (8) Pulmonary histiocytosis x: Status: Acute Assessment and plan: Continue to follow-up with pulmonology as outpatient. (9) Bipolar disorder: Status: Acute Assessment and plan: Continued risperidone. I agree that she seems to be well compensated at this time. (10) Polypharmacy: Status: Acute Assessment and plan: Agree that this is making compliance impossible. Consult palliative care as well as attempt to condense medications to most important ones. (11) Constipation: Status: Resolved Assessment and plan: Continue aggressive bowel regimen. (12) Left ventricular outflow tract obstruction: Status: Chronic Assessment and plan: Carefully monitor volume status. Follow up as outpatient. (13) Pulmonary hypertension: Status: Chronic Assessment and plan: To receive 1 dose of lasix today. RV was not visualized on today's echo. 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 Final CT read is still pending. Patient was previously referred to vascular surgery. (15) Celiac artery stenosis: Status: Chronic Assessment and plan: As above (16) DVT prophylaxis: Status: Acute Assessment and plan: SC lovenox (17) Discharge planning issues: Status: Acute Assessment and plan: Full code. Palliative care consulted. Will require SNF placement. Subjective Subjective Interval history since last seen: Goldie feels better today, she states. She denies dizziness, chest pain, she is not short of breath at rest, and she was able to make a few more steps today before getting winded. She denies nausea/vomiting. She states she has not had a BM since the one 2 days ago. Exam Narrative Exam Narrative: General: Very pleasant middle-aged female, A&Ox3, looks even better than yesterday sitting in the chair HEENT: EOMI, MMM Heart: RRR, no m/r/g Lungs: No wheezing today, but does have crackles at bases Abdomen: soft, nontender on exam, nondistended Extremities:t trace pitting edema BLEs while in TEDs, worse today Objective Last Vital Signs Temp 36.3 C L 12/05/19 15:19 Pulse 111 H 12/05/19 15:19 Resp 16 12/05/19 15:19 BP 137/89 12/05/19 15:19 Pulse Ox 91 L 12/05/19 15:19 Laboratory Results - last 24 hr 12/05/19 12/05/19 06:53 06:53 WBC 13.58 H RBC 4.31 Hgb 12.6 Hct 40.1 MCV 93.0 MCH 29.2 MCHC 31.4 L RDW 14.1 Plt Count 244 MPV 9.8 Immature Gran % 0.9 Neutrophils % 90.5 Lymphocytes % 3.2 Monocytes % 5.4 Eosinophils % 0.0 Basophils % 0.0 Nucleated RBC % 0 Absolute Neutrophils 12.29 H Absolute Lymphocytes 0.43 L Absolute Monocytes 0.73 Absolute Eosinophils 0.00 Absolute Basophils 0.00 Sodium 134 L Potassium 4.2 Chloride 95 L Carbon Dioxide 31.3 Anion Gap 7.7 BUN 23 H Creatinine 1.07 H Estimated GFR/1.73 m2 52.86 Glucose 152 H Calcium 9.5 Magnesium 2.1
[2019-12-05] MEDS: Polyethylene Glycol 3350 17 GM PACKET PO (18:05)
[2019-12-05] MEDS: Milk of Magnesia 30 ML CUP PO (18:05)
[2019-12-05] MEDS: traZODone 100 MG TAB PO (22:28)
[2019-12-05] MEDS: risperiDONE 1 MG TAB 1.5 MG PO (22:28)
[2019-12-06] VITALS (11 sets, daily range): BP systolic 119–163; BP diastolic 80–87; PULSE 88–108; RESP 4–18; TEMP 36–36.7; O2SAT 93–98
[2019-12-06] MEDS: Albuterol/Ipratropium 3 ML UPD VIAL UPD ×6 (03:15→21:58)
[2019-12-06] MEDS: MORPHine 2 MG/ML SYR IVP (03:15)
[2019-12-06] MEDS: DOXYCYCLINE 100 MG in Normal Saline 100 ML IVPB ×2 (03:15→16:19)
[2019-12-06] MEDS: Ibuprofen 600 MG TAB PO ×3 (06:14→17:56)
[2019-12-06] MEDS: methylPREDNISolone SUCC 125 MG VIAL 60 MG IVP (06:14)
[2019-12-06] MEDS: Levothyroxine 100 MCG TAB PO (06:14)
[2019-12-06] MEDS: oxyCODONE 5 mg/Acetaminophen 325 mg TAB 1 TAB PO ×2 (06:14→11:13)
[2019-12-06 07:33] LABS: Abs Immature Grans 0.09 10^3/uL (0.0-0.06); Absolute Lymphocyte Count 0.47 10^3/uL (1.2-3.4); Absolute Monocyte Count 0.52 10^3/uL (0.1-0.8); HCT 36.1 % (36.0-46.0); HGB 11.4 g/dL (11.2-15.7); Lymphocytes % 5.3; MCH 29.5 pg (27.0-33.0); MCHC 31.6 % (32.0-36.0); MCV 93.3 fL (80-95); MPV 10.4 fL (8.0-11.0); Monocytes % 5.9; Neutrophils % 87.8; Nucleated RBC 0 %; Platelet Count 214 10^3/uL (130-400); RBC 3.87 10^6/uL (3.93-5.22); RDW 14.3 % (11.7-14.6); RDW-SD 48.6 fL; WBC 8.81 10^3/uL (4.4-10.8)
[2019-12-06 07:35] LABS: Anion Gap 4.2 mmol/L (3-11); BUN 24 mg/dL (7-18); CO2 33.8 mmol/L (21.0-32.0); Calcium 8.8 mg/dL (8.5-10.1); Chloride 99 mmol/L (98-107); Estimated GFR 57.15 (mL/min/1.73m2); Glucose 155 mg/dL (74-106); Potassium 4.2 mmol/L (3.5-5.1); Sodium 137 mmol/L (136-145)
[2019-12-06 07:46] LABS: Absolute Neutrophil Count 7.74 10^3/uL (1.2-6.7)
--- NOTE | 2019-12-06 08:04 | OTTR_ITS ---
Date of service: 12/06/19 Time of Service: 07:15 Occupational Therapy Notes Occupational Therapy Inpatient Treatment Note Date: 12/06/19 PRECAUTIONS: Fall, Standard, DNR/DNI SUBJECTIVE: Pt was sitting on side of bed when OT arrived. She was agreeable to OT session. OBJECTIVE: PAIN:no c/o pain FUNCTIONAL MOBILITY Sit-stand: (S) Stand-sit: (S) Bed-Chair: (S), Cane BATHING: sitting on side of bed with max (A) set up/clean up Upper Body: (I) with min vc Lower Body: (I) with increased performance time due to breathing DRESSING: sitting on side of the Upper Extremity: min (A) with [facility] gown Lower Extremity: NT GROOMING: sitting on side of the bed (I) with brushing her hair ASSESSMENT/PLAN: Pt was able to perform her ADLs in the sitting position with increased functional (I). She still requires (A) due to decreased functional activity tolerance and SOB. She is working on performing her standing ADLs. OT will continue to work with pt to progress pt to standing ADLs. TREATMENT CODES/TIME: 33601, 20 minutes (07:15) [facility]
[2019-12-06] MEDS: Docusate Sodium 100 MG CAP PO ×2 (08:21→19:51)
[2019-12-06] MEDS: Milk of Magnesia 30 ML CUP PO (08:21)
[2019-12-06] MEDS: Pregabalin 50 MG CAP PO ×3 (08:22→19:51)
[2019-12-06] MEDS: Gemfibrozil 600 MG TAB PO ×2 (08:22→16:02)
[2019-12-06] MEDS: buPROPion-XL 150 MG TABCR 300 MG PO (08:22)
[2019-12-06] MEDS: Senna TAB 1 TAB PO ×2 (08:22→19:51)
[2019-12-06] MEDS: Omeprazole 20 MG CAPCR 40 MG PO (08:22)
[2019-12-06] MEDS: Thiamine 100 MG TAB PO (08:23)
[2019-12-06] MEDS: busPIRone 15 MG TAB PO ×2 (08:23→19:51)
[2019-12-06] MEDS: guaiFENesin 600 MG TABCR PO ×2 (08:23→19:51)
[2019-12-06] MEDS: Enoxaparin 40 MG/0.4 ML SYR SC (08:23)
[2019-12-06] MEDS: Citalopram 20 MG TAB 40 MG PO (08:23)
[2019-12-06] MEDS: Nystatin POWDER 60 GM JAR TP ×3 (08:24→19:50)
--- NOTE | 2019-12-06 10:53 | PDOC.CMPRO ---
- If Service Date Differs Date of service: 12/06/19 Time of Service: 10:53 Care Management Progress Note S/O: Goldie was sitting up in a chair when CM met with her this morning. She was pleasant and agreeable to conversation, although she stated she was very tired and had not slept much last night because of the pain. Per PT, Goldie is doing very well with therapy and will likely be discharged from their service sometime soon. Referrals have been sent to 9 SNFs in [facility] and will follow up tomorrow re:bed availability. A: Goldie is a 59 year old woman admitted on 12/02/19 with COPD exacerbation P: Goldie will likely be transferred to a SNF for short term rehab initially and perhaps transition to senior living care or assisted living, preferably in a facility near her daughter. Transportation to be determined. CM will continue to support Godlie and her family and her discharge planning needs.
[2019-12-06] MEDS: Furosemide 20 MG/2 ML VIAL IVP (11:18)
[2019-12-06] MEDS: Normal Saline Flush 10 ML SYR IVP ×2 (13:30→22:06)
[2019-12-06] MEDS: methylPREDNISolone SUCC 40 MG VIAL IVP ×2 (13:30→21:54)
[2019-12-06] MEDS: Acetaminophen 325 MG TAB 650 MG PO (13:31)
[2019-12-06] MEDS: cefTRIAXone 1 GM/50 ML BAG IVPB (13:31)
--- NOTE | 2019-12-06 13:31 | PT.INTREAT ---
Date of service: 12/06/19 Time of Service: 13:31 PT Notes Visit Reasons: RESP DISTRESS,COPD EXACERBATION,FAILURE TO THRIVE Inpatient Physical Therapy Treatment Note [facility] Date: 12/06/19 PRECAUTIONS: Fall SUBJECTIVE: Goldie states that she feels a little better, but still not great. OBJECTIVE: PAIN: Patient c/o abdominal and R/L flank pain with gait training and at rest BED MOBILITY/TRANSFERS Supine-sit: I Sit-supine: I Sit-stand: I Stand-sit: I Bed-chair: I Chair-bed: I GAIT Assistive Device: FWW in a.m.; 4WW in p.m. Weight bearing: Full Assist: I Distance: 520' with FWW in a.m.; 260' with 4WW in p.m. Deviation: Slow/cautious pacing for energy conservation, mild SOB at completion of gait training, 4L O2 via NC; slightly increased pacing with 4WW versus FWW THEREX: Patient performed several LE strengthening exercises in a seated position, as per flow sheet. TOILETING: Patient toileted independently ASSESSMENT: Patient tolerated session with c/o abdominal and R/L flank pain during gait training and at rest. She was able to tolerate a progression in gait distance with FWW, then with 4WW support, independently, demonstrating only mild SOB at the completion of gait training in both a.m. and p.m. PLAN: Patient is independent within room setting with quadcane or 4WW as needed. Continue with daily ambulation with least restrictive device to maintain current level of function. TREATMENT CODE/TIME: Session 1: 40 minutes; 30716 x2, 84233 Session 2: 20 minutes; [id number]
--- NOTE | 2019-12-06 15:38 | W.PALPGNOTE ---
Date of service: 12/06/19 Time of Service: 14:38 Assessment and Plan Assessment and plan (1) Constipation: Status: Resolved (2) Abdominal pain: Status: Resolved (3) Palliative care patient: Status: Acute Assessment and plan: Urged patient to exercise as much as she is able to and be aggressive regarding constipation. She may need an enema. I will prescribe this. The pain may be multifactoral. She has many spianl changes which may be contributing to her pain. If she has good evacuation of her bowels, she may feel much better. I think it would be good to switch from morphine to an oral agent. She is not really used enough in the last day to switch to a fentanyl patch. At this time will change her to oxycodone 5 mg 3 times a day as needed. She knows she has to ask for these Thank you very much for this consult Subjective Subjective Interval history since last seen: I am seeing Goldie at the request of Dr. Mcmanus. Goldie is a 59-year-old woman with multiple comorbidities including vascular disease, end-stage COPD, history of alcoholism, heart disease and multiple compression fractures. Goldie has been complaining about pain. It is been mostly on the left side of the abdomen. She states that she has been constipated and has not yet had a reasonable bowel movement. They have been giving her milk of magnesia and other stool softeners. She feels that it comes around her abdomen and into her back. She has had shingles in the past but it feels different than that. She has tried ibuprofen, Tylenol, tramadol without good effect. Oxycodone works well for her. In the past she states that she takes no narcotics at home but does take morphine while she is in the hospital. Exam Narrative Exam Narrative: She is sitting in her chair. She is able to move back and forth when I asked her to for the exam. She has her hair freshly shampooed smiles and acknowledges my presence. She is very cooperative. Her abdomen has good bowel sounds. She does have some tenderness on the left side. There is no rebound tenderness her abdomen is soft. I do not see any skin lesions. She does have a history of multiple spinal compression fractures. COMPARISON: CT CT CHEST LUNG CANCER SCREEN from 10/11/[address] CHEST PE ABD PELVIS W from 11/27/2019 FINDINGS: PE CT: Pulmonary Arteries: No evidence of filling defect to suggest pulmonary emboli. Tracheobronchial tree: Patent where visualized. Mediastinum and Lorraine: No dominant adenopathy or fluid collection. Pulmonary parenchyma: Evaluation of the pulmonary parenchyma is reduced due to expiratory technique and mild respiratory motion. Central lobular emphysema. Atelectasis in the right middle lobe, lingula and posterior right lower lobe. There are stable small pulmonary nodules. Pleura: No effusion or pneumothorax. Heart: The heart is not dilated. No coronary artery calcifications are seen. Aorta: Thoracic aorta non-dilated. Upper abdomen: Unremarkable. Bones: Old bilateral rib fractures. Stable the ear mid thoracic compression fractures Abdomen pelvic CT: There is no evidence of aortic aneurysm or dissection. There is moderate aortic calcification. No branch vessel occlusion is seen. Stones are noted in the gallbladder. The liver, spleen, pancreas, adrenals and kidneys are unremarkable. There is no bowel dilatation or wall thickening. There is no free air or free fluid. The patient is status post hysterectomy. The bladder is unremarkable. There are mild degenerative changes in the spine. IMPRESSION: No evidence of pulmonary embolism or other acute abnormality. Emphysematous changes and bilateral pulmonary scarring are again noted.. Laboratory Tests 12/06/19 12/06/19 06:20 06:20 WBC 8.81 D Hct 36.1 Carbon Dioxide 33.8 H Creatinine 1.00 Objective Last Vital Signs Temp 98.1 F 12/06/19 11:50 Pulse 99 H 12/06/19 13:55 Resp 18 12/06/19 13:55 BP 119/80 12/06/19 11:50 Pulse Ox 94 12/06/19 13:55 Laboratory Results - last 24 hr 12/06/19 12/06/19 06:20 06:20 WBC 8.81 D RBC 3.87 L Hgb 11.4 Hct 36.1 MCV 93.3 MCH 29.5 MCHC 31.6 L RDW 14.3 Plt Count 214 MPV 10.4 Immature Gran % 1.0 Neutrophils % 87.8 Lymphocytes % 5.3 Monocytes % 5.9 Eosinophils % 0.0 Basophils % 0.0 Nucleated RBC % 0 Absolute Neutrophils 7.74 H Absolute Lymphocytes 0.47 L Absolute Monocytes 0.52 Absolute Eosinophils 0.00 Absolute Basophils 0.00 Sodium 137 Potassium 4.2 Chloride 99 Carbon Dioxide 33.8 H Anion Gap 4.2 BUN 24 H Creatinine 1.00 Estimated GFR/1.73 m2 57.15 Glucose 155 H Calcium 8.8 Magnesium 3.0 H
[2019-12-06] MEDS: oxyCODONE 5 MG TAB PO (16:20)
--- NOTE | 2019-12-06 16:34 | PGE_ITS ---
Date of Service Date of service: 12/06/19 Time of Service: 16:34 Assessment and Plan Assessment and plan (1) Acute exacerbation of COPD with asthma: Status: Acute Assessment and plan: Patient has a h/o of end-stage oxygen and steroid- dependent COPD. She has a minimal consolidation on imaging (RLL, RML, inferior lingula), and so pneumonia could not be excluded. Improving. Continue ceftriaxone, doxycycline. Taper steroids. Repeat COVID-19 PCR negative. Signed a COLST form with DNR/DNI. Her symptoms could be multifactorial, and we need to address a possible cardiac component as well. (2) Acute CHF: Status: Acute Assessment and plan: Echo with poor pictures. She does appear to have an LVOT gradient. EF of 55%, no diastolic dysfunction, and RV was not visualized. Informal recommendations were made to ensure that the patient is not fluid overloaded or over diuresed. One more dose of lasix given today - with good effect. No crackles on my exam now. She will need outpatient cardiology follow up. (3) Chronic respiratory failure with hypoxia and hypercapnia: Status: Chronic Assessment and plan: As above (4) Abdominal pain: Status: Resolved Assessment and plan: Most likely due to constipation. I discussed with nursing that she needs an enema, which has been ordered daily prn. Hypothyroidism probably contributes to this degree of constipation. (5) Hypothyroidism (acquired): Status: Chronic Assessment and plan: Severe. Question of non-compliance with levothyroxine. Dose increased on this admission. (6) Alcohol abuse: Status: Chronic Assessment and plan: Continue monitoring on CIWA. No evidence of withdrawal currently. (7) Adult failure to thrive: Status: Acute Assessment and plan: Agrees to go to SNF on discharge. DNR/DNI. (8) Pulmonary histiocytosis x: Status: Acute Assessment and plan: Continue to follow-up with pulmonology as outpatient. (9) Bipolar disorder: Status: Acute Assessment and plan: Continued risperidone. I agree that she seems to be well compensated at this time. (10) Polypharmacy: Status: Acute Assessment and plan: Agree that this is making compliance impossible. (11) Constipation: Status: Resolved Assessment and plan: Continue aggressive bowel regimen. (12) Left ventricular outflow tract obstruction: Status: Chronic Assessment and plan: Carefully monitor volume status. Follow up as outpatient. (13) Pulmonary hypertension: Status: Chronic Assessment and plan: monitor volume status. RV was not visualized on the echo on this admission. 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 Final CT read is still pending. Patient was previously referred to vascular surgery. 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 Will require SNF placement. Subjective Subjective Interval history since last seen: Goldie feels better as far as breathing, but complains of feeling very constipated and having abdominal pains on the left. Denies dizziness, chest pain, nausea. Exam Narrative Exam Narrative: General: Very pleasant middle-aged female, A&Ox3, sitting in a chair, looks better HEENT: EOMI, MMM Heart: RRR, no m/r/g Lungs: Completely clear to auscultation B with good air movement. Abdomen: soft, nontender on exam, nondistended Extremities:t trace pitting edema BLEs while in TEDs Objective Last Vital Signs Temp 36.5 C 12/06/19 15:42 Pulse 95 H 12/06/19 15:42 Resp 18 12/06/19 15:42 BP 128/81 12/06/19 15:42 Pulse Ox 94 12/06/19 15:42 Laboratory Results - last 24 hr 12/06/19 12/06/19 06:20 06:20 WBC 8.81 D RBC 3.87 L Hgb 11.4 Hct 36.1 MCV 93.3 MCH 29.5 MCHC 31.6 L RDW 14.3 Plt Count 214 MPV 10.4 Immature Gran % 1.0 Neutrophils % 87.8 Lymphocytes % 5.3 Monocytes % 5.9 Eosinophils % 0.0 Basophils % 0.0 Nucleated RBC % 0 Absolute Neutrophils 7.74 H Absolute Lymphocytes 0.47 L Absolute Monocytes 0.52 Absolute Eosinophils 0.00 Absolute Basophils 0.00 Sodium 137 Potassium 4.2 Chloride 99 Carbon Dioxide 33.8 H Anion Gap 4.2 BUN 24 H Creatinine 1.00 Estimated GFR/1.73 m2 57.15 Glucose 155 H Calcium 8.8 Magnesium 3.0 H
--- NOTE | 2019-12-06 16:36 | PHA.REVIEW ---
Pharmacy Admission Review - Admission Clinical Review (Last Updated 12/03/19 @ 13:33 by Brenda Mcmanus MD) Physician orders for life-sustaining treatment (POLST) form indicates patient wish for [id number] status (Acute) Palliative care patient (Acute) Acute CHF (Acute) DVT prophylaxis (Acute) Polypharmacy (Acute) Adult failure to thrive (Acute) Chronic shortness of breath (Acute) Chronic cough (Acute) Acute exacerbation of COPD with asthma (Acute) Discharge planning issues (Acute) Pulmonary histiocytosis x (Acute) Bipolar disorder (Acute) venom-honey bee Allergy (Severe, Verified 12/01/19 23:57) Anaphylaxsis Height 5 ft 3 in Weight 79.5 kg COPD EXACERBATION, FAILURE TO THRIVE, RESP.DISTRESS - Renal Dosing Renal Dosing: BUN 24 mg/dL (7-18) H 12/06/19 06:20 Creatinine 1.00 mg/dL (0.55-1.02) 12/06/19 06:20 CCl~51ml/min Medications needing adjustments: Reviewed - Anticoagulation Anticoagulation: Hgb 11.4 g/dL (11.2-15.7) 12/06/19 06:20 Hct 36.1 % (36.0-46.0) 12/06/19 06:20 Plt Count 214 10^3/uL (130-400) 12/06/19 06:20 INR 1.0 (0.9-1.1) 12/01/19 21:20 Creatinine 1.00 mg/dL (0.55-1.02) 12/06/19 06:20 DVT Prohphylaxis: Reviewed Medications: Enoxaparin - Relevant Labs Sodium 137 mmol/L (136-145) 12/06/19 06:20 Potassium 4.2 mmol/L (3.5-5.1) 12/06/19 06:20 Chloride 99 mmol/L (98-107) 12/06/19 06:20 Magnesium 3.0 mg/dL (1.8-2.4) H 12/06/19 06:20 Electrolytes, C-Reactive P, ESR: Reviewed (TSH was elevated on admission and Levothyroxine dose increased-patient possibly non-compliant with home med, Probnp 297 but don't want her fluid overloaded, Mag 3.0-MD not concerned) - DM Control DM Control: Glucose 155 mg/dL (74-106) H 12/06/19 06:20 - Heart Failure/MS Heart Failure/MS: Troponin I < 0.05 ng/mL (<0.06) 12/02/19 00:20 NT-Pro-B Natriuret Pep 296 pg/mL (<300) 12/03/19 14:05 EF%, ELOY's, B-Blockers, Diuretics: Reviewed (Lasix IVP x1 yesterday and today for crackles) - BP Control BP Control: Blood Pressure 128/81 Blood Pressure 119/80 Blood Pressure 120/84 If elevated: N/A - IV to PO Switch IV Medications: Reviewed (IV steroids-being tapered, IV Antibiotics) - Current meds Current Medication Order Review: Reviewed (Pt's own Alprazolam ER 2mg twice a day-not brought in at this time) - Comments Comments/Follow Ups: Seen by today (Palliative) who ordered OxyIR 5mg TID/prn but has Percocet ordered q6h scheduled. Will clarify with one of the MD's. Patient is constipated, trying an enema which will help with her abdominal pain and get her ambulating. Watch for conversion to oral steroids and Antibiotic de-escalation (Rocephin/Doxy day#4 for Pneumonia-blood and urine cultures are negative). Follow CIWA, abdominal pain, daily weights, Lasix dosing Antibiotic Activity - Pharmacy Antibiotic Review Pharmacy Antibiotic Activity: Reviewed, no change (Rocephin/Doxy day#4 for Pneumonia-blood and urine cultures negative) - Antibiotic Information Antibiotic Review Info: Rocephin/Doxy day#4 for Pneumonia-blood and urine cultures negative
[2019-12-06] MEDS: Polyethylene Glycol 3350 17 GM PACKET PO (16:50)
--- NOTE | 2019-12-06 16:50 | INDS_ITS ---
Date of service: 12/06/19 PT Notes Visit Reasons: RESP DISTRESS,COPD EXACERBATION,FAILURE TO THRIVE Physical Therapy Inpatient Discharge Summary Date: 12/06/2019 Dates of service: 12/03/2019 through 12/06/2019 This is a clinical summary of care provided on the duration of dates listed ab ove. No charge was made in the completion of this documentation. Referring Doctor: Brenda Mcmanus MD PT Orders: PT CONSULT: Limited ability Precautions: Fall. Standard. Activity as tolerated. Patient Profile/Admitting Diagnosis: Goldie is a 59-year-old female who presented to the ED on 12/01/2019 with a chief complaint of increasing cough and shortness of breath. She is diagnosed with acute exacerbation of chronic obstructive pulmonary disease with asthma, abdominal pain, adult failure to thrive, alcohol abuse, pulmonary histiocytosis, bipolar disorder, polypharmacy, and constipation. PMHX: Medical History Anxiety disorder Bipolar disorder COPD exacerbation Hypothyroidism (acquired) Nicotine dependence with current use Pulmonary histiocytosis x Respiratory failure Vertebral fracture, closed Surgical History History of right shoulder replacement Dr. Dee at [facility]. 5-6 years ago per pt. Hx of bilateral cataract extraction [address] Santos. Hx of section x 2. Hx of hysterectomy 10 yrs ago, done in [place] per pt. Social History/Home Situation: Lives alone in a handicap accessible residence with no steps to enter. 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 She has family and relatives who can provide for her transportation needs. She is hopeful that she can get a motorized wheelchair to maximize her independence with community mobility. Equipment Owned/DME: Front wheeled walker, small-based quad cane Subjective: NT. See most recent [employer] MANUFACTURING VICE PRESIDENT notes. Objective: General Observation: NT. See most recent [employer]ING VICE PRESIDENT notes. Mental Status: NT. See most recent ADV[employer]ED MANUFACT[employer]ING VICE PRESIDENT notes. Pain: NT. See most recent [employer]UFA[employer]ING VICE PRESIDENT notes. ROM: Right Upper Extremity: Shoulder Flexion allows up to 130 degrees. Shoulder abduction allows up to 130 degrees. Elbow flexion WFL. Wrist flexion WFL. Opening and closing of hand WFL. Left Upper Extremity: Shoulder Flexion allows up to 90 degrees. Shoulder abduction allows up to 80 degrees. Elbow flexion WFL. Wrist flexion WFL. Opening and closing of hand WFL. Right Lower Extremity: Hip flexion WFL. Hip abduction WFL. Knee flexion WFL. Ankle dorsiflexion WFL. Ankle plantarflexion WFL. Left Lower Extremity: Hip flexion WFL. Hip abduction WFL. Knee flexion WFL. Ankle dorsiflexion WFL. Ankle plantarflexion WFL. Strength: Right Upper Extremity: Shoulder flexors 3-/5. Shoulder abductors 3-/5. Elbow flexors 4/5. Elbow extensors 4/5. Information Officer weak but functional. Left Upper Extremity: Shoulder flexors 3-/5. Shoulder abductors 3-/5. Elbow flexors 4/5. Elbow extensors 4/5. Information Officer weak but functional. Right Lower Extremity: Hip flexors 4/5. Hip abductors 4/5. Knee flexors 4/5. Knee extensors 4/5. Ankle dorsiflexors 4/5. Ankle plantarflexors 4/5. Left Lower Extremity: Hip flexors 4/5. Hip abductors 4/5. Knee flexors 4/5. Knee extensors 4/5. Ankle dorsiflexors 4/5. Ankle plantarflexors 4/5. Sensation: Intact as to pain and pressure on bilateral lower extremities. Bed Mobility/Transfers: Rolling independent Supine to sit independent Sit to supine independent Sit to stand independent Stand to sit independent Bed to chair independent Chair to bed independent Gait: 260 feet using 4 wheeled walker with full weight bearing independently on 3 L of oxygen per minute. Patient has been made independent inside her room as of 12/06/2019 using front wheeled walker and oxygen supplementation. Balance: Static Sitting: Normal Dynamic Sitting: Normal Static Standing: Fair Dynamic Standing: Fair Assessment: Goldie has demonstrated significant functional mobility improvement during this episode of care as indicated by her current mobility level above and her goal status below. Goldie is a 59-year-old female who presented to the ED on 12/01/2019 with a chief complaint of increasing cough and shortness of breath. She is diagnosed with acute exacerbation of chronic obstructive pulmonary disease with asthma, abdominal pain, adult failure to thrive, alcohol abuse, pulmonary histiocytosis, bipolar disorder, polypharmacy, and constipation. She is discontinued from physical therapy services as of 12/06/2019 due to achievement of goals. Goals: Goals X1 week 1. Supine-Sit independent MET 2. Sit-Supine independent MET 3. Sit-Stand independent MET 4. Stand-Sit independent MET 5. Bed-Chair independent MET 6. Chair-Bed independent MET 7. Independent gait on level surface with use of least restrictive device for at least 300 feet without report of pain nor dyspnea MET with set up of oxygen supplement by nursing staff. 9. Good static and dynamic standing balance/tolerance MET DISCHARGE RECOMMENDATIONS: Patient will benefit from home health PT services in order to progress mobility level using least restrictive assistive ambulatory device, assess home safety, identify additional equipment needs, and establish a functional maintenance program that will increase ability of patient to remain at home. May benefit from motorized wheelchair assessment by home health PT in order to maximize indoor and community mobility while reducing fall risk. TREATMENT CODE/TIME: NC. Thank you for the opportunity to participate in the care of this patient. Emily Egan PT, DPT, CLT [facility] [place], [place]
[2019-12-06] MEDS: Bisacodyl 10 MG SUPP PR (19:51)
[2019-12-06] MEDS: risperiDONE 1 MG TAB 1.5 MG PO (21:54)
[2019-12-06] MEDS: oxyCODONE 5 mg/Acetaminophen 325 mg TAB PO (22:34)
[2019-12-07] VITALS (14 sets, daily range): BP systolic 100–151; BP diastolic 65–85; PULSE 86–107; RESP 2–21; TEMP 36–36.8; O2SAT 95–99
[2019-12-07] MEDS: Ibuprofen 600 MG TAB PO ×4 (00:18→18:59)
[2019-12-07] MEDS: Albuterol/Ipratropium 3 ML UPD VIAL UPD ×6 (01:58→21:39)
[2019-12-07] MEDS: Normal Saline Flush 10 ML SYR IVP ×3 (04:11→16:01)
[2019-12-07] MEDS: DOXYCYCLINE 100 MG in Normal Saline 100 ML IVPB ×2 (04:11→16:00)
[2019-12-07] MEDS: Levothyroxine 100 MCG TAB PO (05:27)
[2019-12-07] MEDS: methylPREDNISolone SUCC 40 MG VIAL IVP (05:27)
[2019-12-07 06:54] LABS: Abs Immature Grans 0.26 10^3/uL (0.0-0.06); Absolute Basophil Count 0.02 10^3/uL (0.0-0.2); Absolute Lymphocyte Count 0.85 10^3/uL (1.2-3.4); Absolute Monocyte Count 0.66 10^3/uL (0.1-0.8); Absolute Neutrophil Count 9.54 10^3/uL (1.2-6.7); Basophils % 0.2; HCT 38.5 % (36.0-46.0); HGB 12.3 g/dL (11.2-15.7); Immature Grans % 2.3; Lymphocytes % 7.5; MCH 29.4 pg (27.0-33.0); MCHC 31.9 % (32.0-36.0); MCV 91.9 fL (80-95); Monocytes % 5.8; Neutrophils % 84.2; Nucleated RBC 0 %; Platelet Count 242 10^3/uL (130-400); RBC 4.19 10^6/uL (3.93-5.22); RDW 14.2 % (11.7-14.6); RDW-SD 47.9 fL; WBC 11.33 10^3/uL (4.4-10.8)
[2019-12-07 07:12] LABS: Anion Gap 4.7 mmol/L (3-11); BUN 25 mg/dL (7-18); CO2 33.3 mmol/L (21.0-32.0); CREATININE 1.01 mg/dL (0.55-1.02); Calcium 9.3 mg/dL (8.5-10.1); Chloride 96 mmol/L (98-107); Glucose 143 mg/dL (74-106); Magnesium 2.7 mg/dL (1.8-2.4); Potassium 4.7 mmol/L (3.5-5.1); Sodium 134 mmol/L (136-145)
--- NOTE | 2019-12-07 07:24 | OT.INTREAT ---
Date of service: 12/07/19 Time of Service: 07:05 Occupational Therapy Notes Occupational Therapy Inpatient Treatment Note Date: 12/07/19 PRECAUTIONS: Fall, Standard, DNR/DNI SUBJECTIVE: Pt was sitting on side of her bed when OT arrived. She was agreeable to OT session reporting that she did not sleep well and feels that her side pain is the contributory factor to her discomfort from last night. She reports that she would like to work with Occupational Therapist today and notes that she may be transitioning to SNF in [place] as this is closest to her daughter. OBJECTIVE: PAIN:5/10 pain FUNCTIONAL MOBILITY Sit-stand: (I) Stand-sit: (I) Bed-Chair: (S) Chair-bed: (S) BATHING: sitting on side of the bed with max (A) set up /clean up with mod vc for energy conservation and rest breaks for her breathing. Upper Body: (I) (B) UE, face, abdomen, hair Lower Body: (I) yosvany area, (B) LE DRESSING: Sitting on side of the bed Upper Extremity: (I) don and doff [facility] gown Lower Extremity: (I) don and doff underwear with vc provided for resting positions and energy conservation with donning and doffing. GROOMING: sitting on side of the bed (I) with brushing hair TOILETING: Device: on toilet Assist: (I) with toileting hygiene ASSESSMENT/PLAN: Pt was an active participant in todays session she is able to perform her ADLs in the sitting position without (A). She does have to be reminded to take vc throughout for rest breaks. Plan is for pt to transition to SNF in [place]. Pt has been able to perform her ADLs at this time and is progressing well. Her standing ADLs are limited due to her breathing but she reports that this is her baseline level of function. TREATMENT CODES/TIME: [id number], 30 minutes (07:00) Gardenia Strong OTR/[facility]
[2019-12-07] MEDS: busPIRone 15 MG TAB PO ×2 (07:37→20:56)
[2019-12-07] MEDS: Senna TAB 1 TAB PO ×2 (07:37→20:56)
[2019-12-07] MEDS: Gemfibrozil 600 MG TAB PO ×2 (07:37→15:59)
[2019-12-07] MEDS: Docusate Sodium 100 MG CAP PO ×2 (07:37→20:56)
[2019-12-07] MEDS: guaiFENesin 600 MG TABCR PO ×2 (07:37→20:56)
[2019-12-07] MEDS: Citalopram 20 MG TAB 40 MG PO (07:37)
[2019-12-07] MEDS: Omeprazole 20 MG CAPCR 40 MG PO (07:37)
[2019-12-07] MEDS: Pregabalin 50 MG CAP PO ×3 (07:37→20:57)
[2019-12-07] MEDS: buPROPion-XL 150 MG TABCR 300 MG PO (07:37)
[2019-12-07] MEDS: Thiamine 100 MG TAB PO (07:37)
[2019-12-07] MEDS: Nystatin POWDER 60 GM JAR TP ×3 (07:38→20:58)
[2019-12-07] MEDS: Enoxaparin 40 MG/0.4 ML SYR SC (07:38)
[2019-12-07] MEDS: oxyCODONE 5 mg/Acetaminophen 325 mg TAB PO ×3 (09:50→22:26)
--- NOTE | 2019-12-07 11:50 | PDOC.CMPRO ---
- If Service Date Differs Date of service: 12/07/19 Time of Service: 11:50 Care Management Progress Note S/O: Goldie was sitting up in a chair when CM met with her. She was agreeable to conversation and stated that today she has back pain. She did state that she managed to have a bowel movement yesterday after an enema and that her abdominal pain is better. CM asked Goldie to identify the areas that she felt were a problem for her at home. The perception of her friends and family is that she has been failing at home, but specific information was not available. Goldie identified food preparation and loneliness as 2 big factors. She discussed some efforts she has made in the past to socialize and barriers she has encountered. Goldie will likely not qualify for skilled rehab as she has done very well with PT in the hospital, soon to be discharged from their service. No responses have been received from any of the referrals sent. CM will contact them and also search for Assisted Living facilities in the [place] area. A: Goldie is a 59 year old woman admitted on 12/02/19 with COPD exacerbation P: Goldie will likely be transferred to a SNF for short term rehab initially and perhaps transition to rn long term care care or assisted living, preferably in a facility near her daughter. Transportation to be determined. CM will continue to support Goldie and her family and her discharge planning needs.
[2019-12-07] MEDS: cefTRIAXone 1 GM/50 ML BAG IVPB (14:13)
[2019-12-07] MEDS: Normal Saline 500 ML IV (16:01)
--- NOTE | 2019-12-07 16:47 | PGE_ITS ---
Date of Service Date of service: 12/07/19 Time of Service: 16:47 Assessment and Plan Assessment and plan (1) Acute exacerbation of COPD with asthma: Status: Acute Assessment and plan: Patient has a h/o of end-stage oxygen and steroid- dependent COPD. She has a minimal consolidation on imaging (RLL, RML, inferior lingula), and so pneumonia could not be excluded. About the same as yesterday. Transition to PO abx. Continue steroid taper (change to PO). Repeat COVID-19 PCR negative. Signed a COLST form with DNR/DNI. Her symptoms could be multifactorial, and we need to address a possible cardiac component as well. (2) Acute CHF: Status: Acute Assessment and plan: Echo with poor pictures. She does appear to have an LVOT gradient. EF of 55%, no diastolic dysfunction, and RV was not visualized. Informal recommendations were made to ensure that the patient is not fluid overloaded or over diuresed. No lasix today - will reassess tomorrow. She will need outpatient cardiology follow up. (3) Chronic respiratory failure with hypoxia and hypercapnia: Status: Chronic Assessment and plan: As above (4) Abdominal pain: Status: Resolved Assessment and plan: Most likely due to constipation. BM today. Will add lactulose daily in addition to scheduled colace, senna, miralax. Hypothyroidism probably contributes to this degree of constipation in addition to the opioids. (5) Hypothyroidism (acquired): Status: Chronic Assessment and plan: Severe. Question of non-compliance with levothyroxine. Dose increased on this admission. (6) Alcohol abuse: Status: Chronic Assessment and plan: Continue monitoring on CIWA. No evidence of withdr awal currently. (7) Adult failure to thrive: Status: Acute Assessment and plan: Agrees to go to SNF on discharge. DNR/DNI. (8) Pulmonary histiocytosis x: Status: Acute Assessment and plan: Continue to follow-up with pulmonology as outpatient. (9) Bipolar disorder: Status: Acute Assessment and plan: Continued risperidone. Compensated at this time. (10) Polypharmacy: Status: Acute Assessment and plan: Agree that this is making compliance impossible. (11) Constipation: Status: Resolved Assessment and plan: Continue aggressive bowel regimen. (12) Left ventricular outflow tract obstruction: Status: Chronic Assessment and plan: Carefully monitor volume status. Follow up as outpatient. (13) Pulmonary hypertension: Status: Chronic Assessment and plan: monitor volume status. RV was not visualized on the echo on this admission. 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 Final CT read states no aortic brach vessel occlusion was seen. Patient was previously referred to vascular surgery. 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 Disposition is unclear at this time. Subjective Subjective Interval history since last seen: Ms Pa states she is feeling better. She has had a BM today. Breathing is better. Denies dizziness, chest pain, shortness of breath, nausea. Exam Narrative Exam Narrative: General: Very pleasant middle-aged female, A&Ox3, sitting in a chair, looks better HEENT: EOMI, MMM Heart: RRR, no m/r/g Lungs: Slight rhonchi B. Abdomen: soft, nontender on exam, nondistended Extremities:t trace pitting edema BLEs while in TEDs Objective Last Vital Signs Temp 36.5 C 12/07/19 15:45 Pulse 99 H 12/07/19 15:45 Resp 19 12/07/19 15:45 BP 126/83 12/07/19 15:45 Pulse Ox 97 12/07/19 15:45 Laboratory Results - last 24 hr 12/07/19 12/07/19 06:40 06:40 WBC 11.33 H RBC 4.19 Hgb 12.3 Hct 38.5 MCV 91.9 MCH 29.4 MCHC 31.9 L RDW 14.2 Plt Count 242 MPV 10.0 Immature Gran % 2.3 Neutrophils % 84.2 Lymphocytes % 7.5 Monocytes % 5.8 Eosinophils % 0.0 Basophils % 0.2 Nucleated RBC % 0 Absolute Neutrophils 9.54 H Absolute Lymphocytes 0.85 L Absolute Monocytes 0.66 Absolute Eosinophils 0.00 Absolute Basophils 0.02 Sodium 134 L Potassium 4.7 Chloride 96 L Carbon Dioxide 33.3 H Anion Gap 4.7 BUN 25 H Creatinine 1.01 Estimated GFR/1.73 m2 56.50 Glucose 143 H Calcium 9.3 Magnesium 2.7 H
[2019-12-07] MEDS: Lactulose 20 GM/30 ML CUP PO (17:13)
[2019-12-07] MEDS: Doxycycline Hyclate 100 MG CAP PO (18:59)
[2019-12-07] MEDS: Polyethylene Glycol 3350 17 GM PACKET PO (20:54)
[2019-12-07] MEDS: predniSONE 20 MG TAB 40 MG PO (20:56)
[2019-12-07] MEDS: risperiDONE 1 MG TAB 1.5 MG PO (21:44)
[2019-12-07] MEDS: traZODone 100 MG TAB PO (22:27)
[2019-12-08] VITALS (14 sets, daily range): BP systolic 121–144; BP diastolic 73–87; PULSE 72–121; RESP 2–28; TEMP 36.4–37.2; O2SAT 86–100
--- NOTE | 2019-12-08 | DI.RAD_ITS ---
EXAM: XR PORTABLE CHEST AP INDICATION: worsening shortness of breath and oxygen requireme. COMPARISON: CR,XR XR PORTABLE CHEST AP from 11/19/2019 CR XR CHEST 2V PA LATERAL from 11/20/[address] CHEST PE ABD PELVIS W from 12/01/2019 TECHNIQUE: 2D digital imaging was performed. FINDINGS: The heart size is normal. The lungs are suboptimally inflated. Chronic fibrotic changes are noted. No infiltrate, effusion or pulmonary edema is seen. There is a right shoulder prosthesis. There ar e degenerative changes of the left shoulder. IMPRESSION: No acute abnormality. DATA REPOSITORY: RADIATION DOSE DELIVERED:
[2019-12-08] MEDS: Albuterol/Ipratropium 3 ML UPD VIAL UPD ×5 (04:36→22:33)
[2019-12-08] MEDS: Levothyroxine 100 MCG TAB PO (04:39)
[2019-12-08] MEDS: Ibuprofen 600 MG TAB PO ×4 (04:39→22:43)
[2019-12-08 07:04] LABS: Anion Gap 5.2 mmol/L (3-11); BUN 25 mg/dL (7-18); CO2 31.8 mmol/L (21.0-32.0); CREATININE 1.01 mg/dL (0.55-1.02); Calcium 9.4 mg/dL (8.5-10.1); Chloride 97 mmol/L (98-107); Glucose 162 mg/dL (74-106); Magnesium 2.2 mg/dL (1.8-2.4); Sodium 134 mmol/L (136-145)
--- NOTE | 2019-12-08 07:32 | OT.INTREAT ---
Date of service: 12/08/19 Time of Service: 07:00 Occupational Therapy Notes Occupational Therapy Inpatient Treatment Note Date: 12/08/19 PRECAUTIONS: Fall, Standard, DNR/DNI SUBJECTIVE: Pt was sitting in her chair when OT arrived. She reports that her sleeping routine has not been well and she is tired. She reports that she likes to go to bed early which limits her in her medications and IV's and she is frequently wok up throughout the night which she reports is wearing on her. OBJECTIVE: PAIN:no c/o pain throughout session but reports an overall pain of 3/10. FUNCTIONAL MOBILITY Sit-stand: (I) Stand-sit: (I) BATHING: sitting in chair with max (A) set up/clean up Upper Body: (I) with min vc throughout and education on rest breaks and modifications to decrease extra strain on her breathing. Lower Body: (I) to (B) mid shins as she s wearing TEDS and does not want to take them off at this time. DRESSING: sitting in chair Upper Extremity: (I) with [facility] gown Lower Extremity: Mod (A) don and doffing underwear due to breathing. ASSESSMENT/PLAN: Goldie's breathing continues to play a role on her functional (I) with her bathing and dressing routines. She requires frequent rest breaks and required Mod (A) for LE dressing based on this at todays session. She reports that the plan continues to be that she go to SNF in [place]. OT will continue to work with pt to increase her functional activity tolerance and modifications to her dressing and bathing routine as needed. TREATMENT CODES/TIME: [id number], 17 minutes (07:00) Gardenia Strong OTR/[facility]
[2019-12-08] MEDS: Enoxaparin 40 MG/0.4 ML SYR SC (08:31)
[2019-12-08] MEDS: Polyethylene Glycol 3350 17 GM PACKET PO (08:31)
[2019-12-08] MEDS: Cefuroxime 250 MG TAB PO ×2 (08:32→20:12)
[2019-12-08] MEDS: oxyCODONE 5 mg/Acetaminophen 325 mg TAB PO ×2 (08:32→15:55)
[2019-12-08] MEDS: guaiFENesin 600 MG TABCR PO ×2 (08:32→20:11)
[2019-12-08] MEDS: busPIRone 15 MG TAB PO ×2 (08:32→20:12)
[2019-12-08] MEDS: Citalopram 20 MG TAB 40 MG PO (08:32)
[2019-12-08] MEDS: Lactulose 20 GM/30 ML CUP PO (08:32)
[2019-12-08] MEDS: Gemfibrozil 600 MG TAB PO ×2 (08:32→15:55)
[2019-12-08] MEDS: predniSONE 20 MG TAB 40 MG PO ×2 (08:32→20:11)
[2019-12-08] MEDS: Omeprazole 20 MG CAPCR 40 MG PO (08:33)
[2019-12-08] MEDS: buPROPion-XL 150 MG TABCR 300 MG PO (08:33)
[2019-12-08] MEDS: Pregabalin 50 MG CAP PO ×3 (08:33→20:12)
[2019-12-08] MEDS: Senna TAB 1 TAB PO ×2 (08:33→20:12)
[2019-12-08] MEDS: Doxycycline Hyclate 100 MG CAP PO (08:33)
[2019-12-08] MEDS: Thiamine 100 MG TAB PO (08:33)
[2019-12-08] MEDS: Docusate Sodium 100 MG CAP PO ×2 (08:33→20:12)
[2019-12-08] MEDS: Nystatin POWDER 60 GM JAR TP ×2 (08:45→20:11)
--- NOTE | 2019-12-08 11:10 | PGE_ITS ---
Date of Service Date of service: 12/08/19 Time of Service: 11:11 Assessment and Plan Assessment and plan (1) Acute exacerbation of COPD with asthma: Status: Acute Assessment and plan: Patient has a h/o of end-stage oxygen and steroid- dependent COPD. Pneumonia could not be excluded. She is worse today - I think some of this could be due to fluid overload, so she will get a dose of lasix today, but her sputum has also changed. Repeat CXR and obtain sputum sample. Her abx were switched to PO, but I doubt that this has had a chance to make a difference yet. Repeat COVID-19 PCR negative. Signed a COLST form with DNR/DNI. Her symptoms could be multifactorial, and we need to address a possible cardiac component as well. (2) Acute CHF: Status: Acute Assessment and plan: Echo with poor pictures. She does appear to have an LVOT gradient. EF of 55%, no diastolic dysfunction, and RV was not visualized. Informal recommendations were made to ensure that the patient is not fluid overloaded or over diuresed. As above - will diurese x1 today. She will need outpatient cardiology follow up. (3) Chronic respiratory failure with hypoxia and hypercapnia: Status: Chronic Assessment and plan: As above (4) Abdominal pain: Status: Resolved Assessment and plan: Most likely due to constipation. Doing well from this stand point today. Continue scheduled lactulose daily in addition to scheduled colace, senna, miralax. Hypothyroidism probably contributes to this degree of constipation in addition to the opioids. (5) Hypothyroidism (acquired): Status: Chronic Assessment and plan: Severe. Question of non-compliance with levothyroxine. Dose increased on this admission. (6) Alcohol abuse: Status: Chronic Assessment and plan: Continue monitoring on CIWA. No evidence of withdrawal currently. (7) Adult failure to thrive: Status: Acute Assessment and plan: Agrees to go to SNF on discharge, but we are having difficulties arranging placement. DNR/DNI. (8) Pulmonary histiocytosis x: Status: Acute Assessment and plan: Continue to follow-up with pulmonology as outpatient. (9) Bipolar disorder: Status: Acute Assessment and plan: Continued risperidone. Compensated at this time. (10) Polypharmacy: Status: Acute Assessment and plan: Agree that this is making compliance impossible. (11) Constipation: Status: Resolved Assessment and plan: Continue aggressive bowel regimen. (12) Left ventricular outflow tract obstruction: Status: Chronic Assessment and plan: Carefully monitor volume status. Follow up as outpatient. (13) Pulmonary hypertension: Status: Chronic Assessment and plan: monitor volume status. RV was not visualized on the echo on this admission. 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 Final CT read states no aortic brach vessel occlusion was seen. Patient was previously referred to vascular surgery. 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 Disposition is unclear at this time, but she is not ready for discharge today. Subjective Subjective Interval history since last seen: Goldie feels worse today. She states she really started feeling worse yesterday evening. She complains of worsening shortness of breath and now coughing up thick sputum. It is bedoya/yellowish. She denies dizziness, chest pain, nausea. Her abdominal pain is controlled. She wants to get her bedtime meds earlier. She is requiring 3 L at rest and 6 L with ambulation. Exam Narrative Exam Narrative: General: Very pleasant middle-aged female, A&Ox3, sitting in a chair, I do see worsened work of breathing from yesterday, though it is mild. She is able to complete 5 word sentences. HEENT: EOMI, MMM Heart: RRR, no m/r/g Lungs: Rhonchi and slight rales B, worse than yesterday. Abdomen: soft, nontender on exam, nondistended Extremities: +1 pitting edema BLEs while in TEDs, worse than yesterday Objective Last Vital Signs Temp 37.2 C 12/08/19 11:01 Pulse 110 H 12/08/19 11:01 Resp 16 12/08/19 11:01 BP 135/83 12/08/19 11:01 Pulse Ox 95 12/08/19 11:01 Laboratory Results - last 24 hr 12/08/19 06:40 Sodium 134 L Potassium 5.0 Chloride 97 L Carbon Dioxide 31.8 Anion Gap 5.2 BUN 25 H Creatinine 1.01 Estimated GFR/1.73 m2 56.50 Glucose 162 H Calcium 9.4 Magnesium 2.2
--- NOTE | 2019-12-08 11:33 | PDOC.CMPRO ---
- If Service Date Differs Date of service: 12/08/19 Time of Service: 11:33 Care Management Progress Note S/O: Goldie was sitting up in a chair when CM met with her. She was pleasant and interacted well with CM. Goldie stated that she is not feeling so well today. Her breathing is more labored and she required 6 L of O2 to ambulate. The provider ordered additional tests to r/o further complications. CM contacted 5 assisted living facilities in the [facility]. Two of them have a waiting list that is several years long, one only accepts private pay and one has all patients that are elderly with dementia. That would not be a good fit for Goldie. One facility, [facility], in [place] has a bed and accepted a referral, which was sent by CM this afternoon. They hope to make a determination early next week. This information was shared with Goldie and her daughter. A: Goldie is a 59 year old woman admitted on 12/02/19 with COPD exacerbation P: A referral has been sent to [facility], as assisted living facility in [place], and a determination is expected early next week. In the meantime Goldie will likely be discharged home as she has met the goals PT established for her. She will resume [facility] and home health services, possible with an increase in hours. Transportation to be determined. CM will continue to support Goldie and her family and her discharge planning needs.
[2019-12-08] MEDS: Normal Saline Flush 10 ML SYR (11:45)
[2019-12-08] MEDS: Furosemide 20 MG/2 ML VIAL IVP (11:51)
[2019-12-08 11:53] LABS: NT-proBNP 63 pg/mL (<300)
--- NOTE | 2019-12-08 15:53 | CHAPLAIN ---
Goldie was nodding off in her chair when I visited. She said she is still working on plans to go to a rehab facility closer to her daughter and granddaughter in the [facility].
[2019-12-08] MEDS: Normal Saline Flush 10 ML SYR IVP (20:10)
[2019-12-08] MEDS: risperiDONE 1 MG TAB 1.5 MG PO (22:30)
[2019-12-08] MEDS: traZODone 100 MG TAB PO (22:39)
[2019-12-09] VITALS (13 sets, daily range): BP systolic 115–153; BP diastolic 64–90; PULSE 85–104; RESP 2–24; TEMP 36–37; O2SAT 93–100
[2019-12-09] MEDS: Albuterol/Ipratropium 3 ML UPD VIAL UPD ×6 (03:03→21:09)
[2019-12-09] MEDS: Ibuprofen 600 MG TAB PO ×3 (06:11→17:27)
[2019-12-09] MEDS: Levothyroxine 100 MCG TAB PO (06:11)
[2019-12-09] MEDS: oxyCODONE 5 mg/Acetaminophen 325 mg TAB PO ×2 (07:49→16:07)
[2019-12-09] MEDS: Omeprazole 20 MG CAPCR 40 MG PO (07:51)
[2019-12-09] MEDS: predniSONE 20 MG TAB 40 MG PO ×2 (07:51→19:52)
[2019-12-09] MEDS: Gemfibrozil 600 MG TAB PO ×2 (07:51→16:07)
[2019-12-09] MEDS: Cefuroxime 250 MG TAB PO (07:53)
[2019-12-09] MEDS: Docusate Sodium 100 MG CAP PO ×2 (07:53→19:52)
[2019-12-09] MEDS: Doxycycline Hyclate 100 MG CAP PO (07:53)
[2019-12-09] MEDS: Senna TAB 1 TAB PO ×2 (07:54→19:52)
[2019-12-09] MEDS: Citalopram 20 MG TAB 40 MG PO (07:54)
[2019-12-09] MEDS: busPIRone 15 MG TAB PO ×2 (07:55→19:52)
[2019-12-09] MEDS: Thiamine 100 MG TAB PO (07:55)
[2019-12-09] MEDS: Pregabalin 50 MG CAP PO ×3 (07:56→19:52)
[2019-12-09] MEDS: guaiFENesin 600 MG TABCR PO ×2 (07:56→19:52)
[2019-12-09] MEDS: buPROPion-XL 150 MG TABCR 300 MG PO (07:56)
[2019-12-09] MEDS: Polyethylene Glycol 3350 17 GM PACKET PO (07:58)
[2019-12-09] MEDS: Enoxaparin 40 MG/0.4 ML SYR SC (07:58)
[2019-12-09] MEDS: Normal Saline Flush 10 ML SYR IVP ×3 (08:00→19:51)
[2019-12-09] MEDS: Nystatin POWDER 60 GM JAR TP ×3 (08:09→19:55)
[2019-12-09] MEDS: Lactulose 20 GM/30 ML CUP PO (08:10)
[2019-12-09 08:23] LABS: BUN 27 mg/dL (7-18); CREATININE 0.87 mg/dL (0.55-1.02); Calcium 9.6 mg/dL (8.5-10.1); Chloride 97 mmol/L (98-107); Glucose 156 mg/dL (74-106); Magnesium 2.2 mg/dL (1.8-2.4); Potassium 4.6 mmol/L (3.5-5.1); Sodium 135 mmol/L (136-145)
--- NOTE | 2019-12-09 12:53 | PDOC.CMPRO ---
- If Service Date Differs Date of service: 12/09/19 Time of Service: 12:54 Care Management Progress Note S/O: Plan remains unchanged. Goldie reports to provider her cough and difficulty breathing have been worsening. She is afebrile and is on 3L of O2, which is her baseline. A basic metabolic panel drawn this morning reveals an elevated BUN at 27, normal potassium at 4.6, and low sodium at 135. CM will continue to follow. A: Goldie is a 59 year old woman admitted on 12/02/19 with COPD exacerbation. P: No change in plan. A referral has been sent to [facility], an assisted living facility in [place], and a determination is expected early next week. In the meantime Goldie will likely be discharged home as she has met the goals PT established for her. She will resume [facility] and home health services, possible with an increase in hours. Transportation to be determined. CM will continue to support Goldie and her family and her discharge planning needs.
--- NOTE | 2019-12-09 13:33 | W.PM.PROGNOT ---
Date of Service Date of service: 12/09/19 Time of Service: 13:33 Assessment and Plan Assessment and plan (1) Acute exacerbation of COPD with asthma: Status: Acute Assessment and plan: hx of end stg COPD, oxygen dependent. Patient was admitted as COPD exacerbation and has been treated as outpatient and now as inpatient for pneumonia despite her not having any fever, and her cough has been minimally to non-productive despite aerosols and acapella treatments. She has had multiple CT scans over the past two months. Latest CT of her chest done 11/30 demonstrated atelectasis of her RML, RLL-posterior, and lingula along w/ emphysema but no PE. She was treated w/ Rocephine 1 gm daily from 12/02-12/06 along w/ doxycycline from 12/02-12/06 and from 12/07-12/08 she was put on ceftin and oral doxycycline. I am not sure that she has pneumonia or whether her CT findings are truly atelectasis but given that she has persistent right basilar infiltrate since her CXR from 11/18, I feel that she ought to have a bronchoscopy. I have switched her antibiotics to Levaquin in the event that she has Pseudomonas. I will discuss her case w/ her application project leader, Dr. Milan on Wednesday. She was treated w/ high dose iv solumedrol from admission until 12/06 when she was put on prednisone 40 mg bid. She remains on Symbicort, and albuterol aerosols (but on prn basis). I do not see her on any cholinergic agents such as Spiriva or ipratropium. (2) Acute CHF: Status: Acute Assessment and plan: Echo was done 12/04 and reported as fair quality d/t inability to position patient; LV size and systolic function is normla w/ normal LV wall thickness; LVEF of 55% w/ no RWMA but with LVOT but difficult to quantify d/t poor windows. Estm peak gradient was 25-30 mm w/ valsalva but no S.A.M. RV was not well visualized and RV systolic function coul not be assessed. Patient will need cardiology follow up. Her pro-BNP was only 63 yesterday although it had been higher earlier in admission up to 297. I performed a POCUS of her lungs and found focal B lines in both bases but no effusions and no consolidation. I am going to give her a dose of furosemide x 20 mg x 1 dose. I am not convinced that she is in overt CHF although she does appear have some edema. (3) Chronic respiratory failure with hypoxia and hypercapnia: Status: Chronic Assessment and plan: As above (4) Abdominal pain: Status: Resolved Assessment and plan: Most likely due to constipation. Doing well from this stand point today. Continue scheduled lactulose daily in addition to scheduled colace, senna, miralax. Hypothyroidism probably contributes to this degree of constipation in addition to the opioids. she does have non-obstructing gall stones on her CT. If her abdominal discomfort persists then she may need abdominal US (5) Hypothyroidism (acquired): Status: Chronic Assessment and plan: Severe. Question of non-compliance with levothyroxine. Dose increased on this admission. TSH has risen from 28.9 in April to 42.5 this admission. (6) Alcohol abuse: Status: Chronic Assessment and plan: Continue monitoring on CIWA. No evidence of withdrawal currently. (7) Adult failure to thrive: Status: Acute Assessment and plan: Agrees to go to SNF on discharge, but we are having difficulties arranging placement. DNR/DNI. (8) Pulmonary histiocytosis x: Status: Acute Assessment and plan: Continue to follow-up with pulmonology as outpatient. (9) Bipolar disorder: Status: Acute Assessment and plan: Continued risperidone. Compensated at this time. (10) Polypharmacy: Status: Acute Assessment and plan: Agree that this is making compliance impossible. (11) Constipation: Status: Resolved Assessment and plan: Continue aggressive bowel regimen. (12) Left ventricular outflow tract obstruction: Status: Chronic Assessment and plan: Carefully monitor volume status. Follow up as outpatient. (13) Pulmonary hypertension: Status: Chronic Assessment and plan: monitor volume status. RV was not visualized on the echo on this admission. 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 Final CT read states no aortic brach vessel occlusion was seen. Patient was previously referred to vascular surgery. 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 Disposition is unclear at this time, but she is not ready for discharge today. Subjective Subjective Interval history since last seen: Patient reports that her cough and dyspnea have gotten worse throughout her hospital stay. She has some pleuritic chest discomfort with deep inspiration. Work-up so far has been remarkable for right lower lobe atelectasis versus infiltrate along with a left lingular infiltrate per CT scan. She has been afebrile. She has had a mild leukocytosis but has been on steroids for her COPD exacerbation. Echocardiography demonstrated normal left ventricular size and function however due to poor windows RV size and function could not be evaluated. There is no evidence for diastolic dysfunction on her echocardiogram. proBNP was normal yesterday although she does complain of some bilateral leg edema and abdominal distention. Exam Narrative Exam Narrative: Obese female sitting up in her chair alert and oriented person place time circumstance. Chest with scattered expiratory rhonchi and bibasilar rales Heart is regular rate and rhythm Abdomen soft but obese and slightly distended nontender. Lower extremities with 1+ bilateral pitting pretibial edema. Patient is wearing ENRIQUE hose Objective Last Vital Signs Temp 36 C L 12/09/19 11:25 Pulse 104 H 12/09/19 11:25 Resp 24 12/09/19 11:25 BP 153/64 H 12/09/19 11:25 Pulse Ox 97 12/09/19 11:33 Laboratory Results - last 24 hr 12/09/19 07:12 Sodium 135 L Potassium 4.6 Chloride 97 L Carbon Dioxide 33.0 H Anion Gap 5.0 BUN 27 H Creatinine 0.87 Estimated GFR/1.73 m2 >= 60.00 Glucose 156 H Calcium 9.6 Magnesium 2.2
--- NOTE | 2019-12-09 14:15 | RT.EKG_ITS ---
APPROVED REPORT Exam: Resting ECG Patient Location: I HR:93 bpm ECG Measurements Heart Rate 93 AXIS MS 153 P 50 QRSd 81 QRS -22 QT 348 T 66 QTc 432 Conclusion Sinus rhythm...normal P axis, V-rate 60- 99
[2019-12-09] MEDS: levoFLOXacin 500 MG, levoFLOXacin 250 MG 750 MG PO (14:43)
[2019-12-09] MEDS: Furosemide 20 MG/2 ML VIAL IVP (14:43)
[2019-12-09] MEDS: risperiDONE 1 MG TAB 1.5 MG PO (19:49)
[2019-12-09] MEDS: Zolpidem 10 MG TAB PO (20:30)
[2019-12-10] VITALS (7 sets, daily range): BP systolic 110–128; BP diastolic 75–89; PULSE 82–108; RESP 2–20; TEMP 36.1–36.8; O2SAT 95–98
[2019-12-10] MEDS: Ibuprofen 600 MG TAB PO (05:08)
[2019-12-10] MEDS: Levothyroxine 100 MCG TAB PO (05:08)
[2019-12-10] MEDS: Albuterol/Ipratropium 3 ML UPD VIAL UPD (05:09)
[2019-12-10 07:41] LABS: Abs Immature Grans 0.41 10^3/uL (0.0-0.06); Absolute Basophil Count 0.04 10^3/uL (0.0-0.2); Absolute Neutrophil Count 16.38 10^3/uL (1.2-6.7); Basophils % 0.2; HCT 43.8 % (36.0-46.0); HGB 14.2 g/dL (11.2-15.7); Immature Grans % 2.2; Lymphocytes % 5.7; MCH 29.8 pg (27.0-33.0); MCHC 32.4 % (32.0-36.0); Monocytes % 5.2; Neutrophils % 86.7; Nucleated RBC 0 %; Platelet Count 255 10^3/uL (130-400); RBC 4.76 10^6/uL (3.93-5.22); RDW 14.2 % (11.7-14.6); RDW-SD 48.1 fL; WBC 18.89 10^3/uL (4.4-10.8)
[2019-12-10 07:45] LABS: Absolute Lymphocyte Count 1.08 10^3/uL (1.2-3.4); Absolute Monocyte Count 0.98 10^3/uL (0.1-0.8)
[2019-12-10] MEDS: Enoxaparin 40 MG/0.4 ML SYR SC (08:01)
[2019-12-10] MEDS: Normal Saline Flush 10 ML SYR IVP ×2 (08:01→20:24)
[2019-12-10] MEDS: Citalopram 20 MG TAB 40 MG PO (08:02)
[2019-12-10] MEDS: levoFLOXacin 500 MG, levoFLOXacin 250 MG 750 MG PO (08:02)
[2019-12-10] MEDS: Docusate Sodium 100 MG CAP PO ×2 (08:02→20:25)
[2019-12-10] MEDS: Omeprazole 20 MG CAPCR 40 MG PO (08:02)
[2019-12-10] MEDS: buPROPion-XL 150 MG TABCR 300 MG PO (08:02)
[2019-12-10] MEDS: busPIRone 15 MG TAB PO ×2 (08:03→20:25)
[2019-12-10] MEDS: guaiFENesin 600 MG TABCR PO ×2 (08:03→20:25)
[2019-12-10] MEDS: Thiamine 100 MG TAB PO (08:03)
[2019-12-10] MEDS: Senna TAB 1 TAB PO ×2 (08:03→20:25)
[2019-12-10] MEDS: oxyCODONE 5 mg/Acetaminophen 325 mg TAB PO ×2 (08:03→15:51)
[2019-12-10] MEDS: predniSONE 20 MG TAB 40 MG PO (08:03)
[2019-12-10] MEDS: Pregabalin 50 MG CAP PO ×3 (08:03→20:25)
[2019-12-10] MEDS: Gemfibrozil 600 MG TAB PO ×2 (08:03→15:51)
[2019-12-10 08:07] LABS: Anion Gap 7.8 mmol/L (3-11); BUN 31 mg/dL (7-18); CO2 32.2 mmol/L (21.0-32.0); CREATININE 1.07 mg/dL (0.55-1.02); Calcium 9.9 mg/dL (8.5-10.1); Chloride 94 mmol/L (98-107); Estimated GFR 52.86 (mL/min/1.73m2); Glucose 204 mg/dL (74-106); NT-proBNP 164 pg/mL (<300); Potassium 4.4 mmol/L (3.5-5.1); Sodium 134 mmol/L (136-145)
[2019-12-10 08:19] LABS: C-Reactive Protein < 0.05 mg/dL (0.0-0.3)
[2019-12-10 08:20] LABS: ESR 6 mm/hr (0-30)
[2019-12-10] MEDS: Tiotropium Bromide-Respimat 10 PUFF INH 2 PUFF IH (10:51)
[2019-12-10] MEDS: Nystatin POWDER 60 GM JAR TP ×2 (14:09→20:23)
--- NOTE | 2019-12-10 16:08 | W.PM.PROGNOT ---
Date of Service Date of service: 12/10/19 Time of Service: 16:08 Assessment and Plan Assessment and plan (1) Acute exacerbation of COPD with asthma: Status: Acute Assessment and plan: Despite being on high dose prednisone and DuoNeb aerosol treatments and Symbicort patient's COPD has not improved. Patient had been on Rocephin and doxycycline which was then switched to Ceftin and doxycycline and she is now on Levaquin. She has had multiple rounds of antibiotics as an outpatient as well and her CT scan continues to show atelectatic right middle lobe and posterior right lower lobe as well as left lingula. At this point she deserves a bronchoscopy to see if there is mucus plugging and/or an obstructing mass. (2) Chronic respiratory failure with hypoxia and hypercapnia: Status: Chronic Assessment and plan: As above Subjective Subjective Interval history since last seen: Patient denies any improvement in her degree of dyspnea or cough. She still has a moist cough which is been nonproductive to minimally productive. She is first thing this morning she did produce some greenish mucus but has not been able to bring anything up since then despite the use of aerosol treatments and use of her acapella. She has no chest pain or tightness. She has been here now 8 days and she feels that she is no better than when she first came in here despite being treated with high-dose IV corticosteroids and subsequently high-dose prednisone and aerosol treatments and antibiotics. Yesterday I switched her antibiotics from Ceftin and doxycycline to Levaquin to improve coverage for Pseudomonas although we really do not have any organism for which we can base her treatment. Her diagnostic images have shown a persistent right middle lobe atelectasis and atelectasis of the posterior right lower lobe and lingula as well as centrilobular emphysema. She has no pleural effusions. Her echocardiogram has shown normal left ventricular systolic function with an EF of 55% and normal diastolic function. She does have evidence of a left ventricular outflow tract gradient but no systolic anterior motion of her mitral valve. Her RV function could not be adequately visualized on her echocardiogram and although both Dr. Mcmanus myself thought there was some component of CHF possibly right-sided heart failure her laboratory studies actually of shown her proBNP to be normal. Today her BNP is 164 on admission it was 297. Despite her receiving some IV diuretics yesterday is really made no difference in her dyspnea. At this point I think the patient deserves a bronchoscopy to look at these areas of atelectasis and/or infiltration to see if this is an atypical pneumonia or possibly some endobronchial obstruction or mucous plugging. Exam Narrative Exam Narrative: Obese female sitting up in her chair alert and oriented person place time circumstance. Chest with scattered expiratory rhonchi and bibasilar rales Heart is regular rate and rhythm Abdomen soft but obese and slightly distended nontender. Lower extremities with 1+ bilateral pitting pretibial edema. Patient is wearing ENRIQUE hose Objective Last Vital Signs Temp 36.3 C L 12/10/19 15:29 Pulse 89 12/10/19 15:29 Resp 17 12/10/19 15:29 BP 119/80 12/10/19 15:29 Pulse Ox 98 12/10/19 15:29 Laboratory Results - last 24 hr 12/10/19 12/10/19 07:30 07:30 WBC 18.89 H RBC 4.76 Hgb 14.2 Hct 43.8 MCV 92.0 MCH 29.8 MCHC 32.4 RDW 14.2 Plt Count 255 MPV 10.0 Immature Gran % 2.2 Neutrophils % 86.7 Lymphocytes % 5.7 Monocytes % 5.2 Eosinophils % 0.0 Basophils % 0.2 Nucleated RBC % 0 Absolute Neutrophils 16.38 H Absolute Lymphocytes 1.08 L Absolute Monocytes 0.98 H Absolute Eosinophils 0.00 Absolute Basophils 0.04 ESR 6 Sodium 134 L Potassium 4.4 Chloride 94 L Carbon Dioxide 32.2 H Anion Gap 7.8 BUN 31 H Creatinine 1.07 H Estimated GFR/1.73 m2 52.86 Glucose 204 H Calcium 9.9 C-Reactive Protein < 0.05 NT-Pro-B Natriuret Pep 164
--- NOTE | 2019-12-10 16:53 | PDOC.CMPRO ---
- If Service Date Differs Date of service: 12/10/19 Time of Service: 16:53 Care Management Progress Note S/O: Plan remains unchanged, though nursing staff report Goldie is requesting a transfer to [facility]. A review of her chart reveals no improvement in Goldie's COPD despite treatment with a high dose of steroid, DuoNeb aerosol and Symbicort. A BMP drawn today shows an elevated BUN at 31, elevated Creatinine at 1.07 and an NT-Pro-B of 164. CM will continue to follow. A: Goldie is a 59 year old woman admitted on 12/02/19 with COPD exacerbation P: No change in plan. A referral has been sent to [facility], as assisted living facility in [place], and a determination is expected early next week. In the meantime Goldie will likely be discharged home as she has met the goals PT established for her. She will resume [facility] and home health services, possibly with an increase in hours. Transportation to be determined. will continue to support Goldie and her family and her discharge planning needs.
[2019-12-10] MEDS: Methocarbamol 750 MG TAB PO ×2 (17:23→20:25)
[2019-12-10] MEDS: risperiDONE 1 MG TAB 1.5 MG PO (20:24)
[2019-12-10] MEDS: Zolpidem 6.25 MG TABCR PO (20:24)
[2019-12-10] MEDS: Polyethylene Glycol 3350 17 GM PACKET PO (20:24)
[2019-12-11 03:26] VITALS: BP 108/71; PULSE 83; RESP 18; TEMP 36.7; O2SAT 98
[2019-12-11] MEDS: Methocarbamol 750 MG TAB PO (03:30)
[2019-12-11] MEDS: oxyCODONE 5 mg/Acetaminophen 325 mg TAB PO (05:41)
[2019-12-11] MEDS: Levothyroxine 100 MCG TAB PO (05:41)
[2019-12-11 06:45] LABS: Abs Immature Grans 0.73 10^3/uL (0.0-0.06); HCT 40.9 % (36.0-46.0); HGB 13.2 g/dL (11.2-15.7); MCH 29.5 pg (27.0-33.0); MCHC 32.3 % (32.0-36.0); MCV 91.5 fL (80-95); Platelet Count 264 10^3/uL (130-400); RBC 4.47 10^6/uL (3.93-5.22); RDW-SD 47.3 fL; WBC 18.88 10^3/uL (4.4-10.8)
[2019-12-11 07:18] LABS: Absolute Eosinophil Count 0.19 10^3/uL (0.0-0.7); Absolute Lymphocyte Count 4.34 10^3/uL (1.2-3.4); Absolute Monocyte Count 1.51 10^3/uL (0.1-0.8); Absolute Neutrophil Count 12.46 10^3/uL (1.2-6.7)
[2019-12-11 07:19] LABS: Diff Comment Manual Differential; Metamyelocytes % 2; Nucleated RBC 0 %; Poikilocytes 1+
--- NOTE | 2019-12-11 07:28 | OTTR_ITS ---
Date of service: 12/11/19 Time of Service: 07:10 Occupational Therapy Notes Occupational Therapy Inpatient Treatment Note Date: 12/11/19 PRECAUTIONS: Fall, Standard, DNR/DNI SUBJECTIVE: Pt was sitting in chair when OT arrived. She states that her daughter is coming today from [place] and that she might be discharged home today. OBJECTIVE: PAIN:c/o pain in mid back FUNCTIONAL MOBILITY Sit-stand: (I) Stand-sit: (I) BATHING: sitting in chair with max (A) set up /clean up Upper Body: (I) face, abdomen, (B) UE, mod (A) hair, max (A) back Lower Body: (I) (B) LE and [place] area DRESSING: sitting in chair Upper Extremity: (I) don and doffing [facility] gown Lower Extremity: Mod (A) don and doffing underwear d/t breathing. GROOMING: (I) brushing hair ASSESSMENT/PLAN: Pt does feel that she is at her baseline in terms of her ADLs and due to breathing this is limiting her functional (I). She does note that she is going home which OT feels pt will need (A) with her bathing and dressing due to her breathing. She requires vc throughout for rest breaks and requires the rest breaks to maintain her functional (I) as well as her breathing levels with exacerbation on COPD. TREATMENT CODES/TIME: [id number], 20 minutes (07:10) Gardenia Strong, OTR/[facility]
--- NOTE | 2019-12-11 07:56 | W.PALPGNOTE ---
Date of service: 12/11/19 Time of Service: 06:56 Assessment and Plan Assessment and plan (1) Pulmonary hypertension: Status: Chronic (2) Acute CHF: Status: Acute (3) Chronic respiratory failure with hypoxia and hypercapnia: Status: Chronic (4) Palliative care patient: Status: Acute Assessment and plan: Goldie has tried multiple antibiotics. At this point Dr. Cosme feels that a bronchoscopy might help to clean her out and remove some of the mucous plugs. She has voiced strongly that she wants to go home and she wants to leave as soon as possible. All of this may change management expert the next few minutes as it often does. She states that she will be more active at home and also more comfortable. Her lungs do sound rhonchorous. I agree with Dr. Cosme that she probably does have a mucous plug. Hopefully with increased activity she will be able to mobilize this. Her bowel movements have been better. Her pain has not been an issue the last several days so I will not make any changes to her pain regimen. I did speak to Goldie with the nurses regarding her high oxygen especially in light of the fact that she does get hypercapnic. We talked about what to do as we decrease her oxygen flow and that she may in fact feel quite uncomfortable for half hour to 45 minutes. I decreased her oxygen to 2.5 L. Nursing is well aware of this and will watch her. If she is able to tolerate it then maybe we can go to 2 L and send her home at that. She has fairly high oxygen levels considering the fact that she is got a history of hypercapnic and is end-stage. I have spent more than 50% of time in counseling with this patient. I will follow this patient outpatient Subjective Subjective Interval history since last seen: I met with Goldie and nursing staff both night staff and nursing. Was going to be coming on this morning. Goldie states that she is is good if she is going to be. This is her normal. She feels ready to go home. This morning she does not want to be transferred to [facility]. There was some concern that she has mucus plugging and that going through bronchoscopy might be helpful for cleanout. She has end-stage COPD and is oxygen and prednisone dependent. She has refused to decrease her oxygen below 3 L for nursing. She states that she gets too much air hunger when she does. Her O2 sat is in the high 90s most of the time. She states that she has had a bowel movement yesterday and feels that she will most likely have one today. Overall she is Exam Narrative Exam Narrative: She is sitting comfortably in the chair. She answers questions and is cooperative. She is speaking in complete sentences. Her heart is regular. Her lungs have a funny pattern to them i.e. she can take a breath in without problems but as she tries to exhale she has significant rhonchi especially in the right middle lobe. Objective Last Vital Signs Temp 98.1 F 12/11/19 03:26 Pulse 83 12/11/19 03:26 Resp 18 12/11/19 03:26 BP 108/71 12/11/19 03:26 Pulse Ox 98 12/11/19 03:26 Laboratory Results - last 24 hr 12/10/19 12/10/19 12/11/19 07:30 07:30 06:10 WBC 18.88 H RBC 4.47 Hgb 13.2 Hct 40.9 MCV 91.5 MCH 29.5 MCHC 32.3 RDW 14.0 Plt Count 264 MPV 10.0 Immature Gran % See Differential Neutrophils % 66.0 Lymphocytes % 23.0 Monocytes % 8.0 Eosinophils % 1.0 Basophils % 0.0 Metamyelocytes % 2 Nucleated RBC % 0 Absolute Neutrophils 12.46 H Absolute Lymphocytes 4.34 H Absolute Monocytes 1.51 H Absolute Eosinophils 0.19 Absolute Basophils 0.00 RBC Morphology See below Poikilocytosis 1+ ESR 6 Sodium 134 L Potassium 4.4 Chloride 94 L Carbon Dioxide 32.2 H Anion Gap 7.8 BUN 31 H Creatinine 1.07 H Estimated GFR/1.73 m2 52.86 Glucose 204 H Calcium 9.9 C-Reactive Protein < 0.05 NT-Pro-B Natriuret Pep 164
[2019-12-11] MEDS: Tiotropium Bromide-Respimat 10 PUFF INH 2 PUFF IH (07:57)
[2019-12-11] MEDS: Normal Saline Flush 10 ML SYR IVP (08:42)
[2019-12-11] MEDS: Enoxaparin 40 MG/0.4 ML SYR SC (08:42)
[2019-12-11] MEDS: predniSONE 20 MG TAB 40 MG PO (08:43)
[2019-12-11] MEDS: Gemfibrozil 600 MG TAB PO (08:43)
[2019-12-11] MEDS: buPROPion-XL 150 MG TABCR 300 MG PO (08:43)
[2019-12-11] MEDS: Omeprazole 20 MG CAPCR 40 MG PO (08:43)
[2019-12-11] MEDS: Pregabalin 50 MG CAP PO (08:44)
[2019-12-11] MEDS: guaiFENesin 600 MG TABCR PO (08:44)
[2019-12-11] MEDS: busPIRone 15 MG TAB PO (08:44)
[2019-12-11] MEDS: levoFLOXacin 500 MG, levoFLOXacin 250 MG 750 MG PO (08:44)
[2019-12-11] MEDS: Citalopram 20 MG TAB 40 MG PO (08:44)
[2019-12-11] MEDS: Thiamine 100 MG TAB PO (08:49)
--- NOTE | 2019-12-11 08:52 | CMPROGNOTE_ITS ---
Care Management Progress Note S/O: Per chart review COPD treatment continues with high dose steroid, DuoNeb aerosol and Symbicort. CM will continue to follow. A: Goldie is a 59 year old woman admitted on 12/02/19 with COPD exacerbation P: No change in plan. A referral has been sent to [facility], as assisted living facility in [place], and a determination is expected early next week. In the meantime Goldie will likely be discharged home as she has met the goals PT established for her. She will resume [facility] and home health services, possibly w ith an increase in hours. Transportation to be determined. CM will continue to support Goldie and her family and her discharge planning needs.
[2019-12-11] MEDS: Nystatin POWDER 60 GM JAR TP (09:07)
[2019-12-11 09:15] VITALS: BP 117/77; PULSE 90; RESP 20; TEMP 35.3; O2SAT 95
[2019-12-11 10:23] VITALS: PULSE 110; PULSE 98; RESP 20; RESP 24; O2SAT 90; O2SAT 96
[2019-12-11 11:24] VITALS: BP 127/89; PULSE 83; RESP 18; TEMP 35.9; O2SAT 97
--- NOTE | 2019-12-11 13:36 | PDOC.CMDIS ---
LACE Index Scoring Tool - Questions: Length of Stay (in days): 7 - 13 Acuity (Admit via E.D.?): Yes Comorbidities: Chronic Pulmonary Disease E.D. Visits: 9 - Answers: Total Score: 14 Risk of Readmission: High Risk Care Management Discharge Reason for Hospitalization: Acute exacerbation of COPD and asthma Discharge Plan: Goldie will discharge home when ready per MD. MD will complete new orders for VNA RN services. Goldie will follow up with her community providers; CM faxed clinicals to [employer] for broncoscopy request. Goldie declined [facility] support offer, and plans to transport home with her friend Evie via private vehicle. Patient/Family Education Needs: Review discharge instructions, discuss Ask Me Three. Services Needed at Discharge: Home Health Care Services (RN)
--- NOTE | 2019-12-11 14:41 | DSE_ITS ---
Date of service: 12/11/19 Time of Service: 14:42 DS: Diagnosis Discharge Diagnosis (1) Pseudomonas pneumonia: Status: Acute Asessment and Plan: Patient was started on Levaquin 750 mg p.o. daily beginning December 09, 2019 and was discharged home with a 7-day course of Levaquin 750 mg p.o. daily. This would provide a total of 10 days of treatment. Patient was also discharged on tapering dose of prednisone beginning at 40 mg daily x3 days then 20 mg daily x3 days and then she is to go back down to her maintenance dose of 10 mg daily. Patient is to follow-up with her air liaison and special staff Dr. Indira Brandt within the next couple weeks. Patient should make a follow-up with her primary care provider as well. (2) Chronic respiratory failure with hypoxia and hypercapnia: Status: Chronic Asessment and Plan: Steroid taper and antibiotics as listed above. Otherwise patient is to continue on her home routine inhalers including Trelegy Ellipta and pro-air. Follow-up with her air liaison and special staff in the next couple weeks. (3) Pulmonary hypertension: Status: Chronic Asessment and Plan: Historically the patient has had pulmonary hypertension however echocardiogram this admission was not able to evaluate RV function due to poor windows. (4) Hypothyroidism (acquired): Status: Chronic Asessment and Plan: Patient was found to have worsening hypothyroidism with a rising TSH of 42.5 with a free T4 of 1.0. Her levothyroxine dose was increased from 75 mcg daily to 100 mcg daily. A new prescription for levothyroxine 100 mcg p.o. daily #30 was written. Her primary care provider should recheck repeat TSH in 6 to 8 weeks. (5) Palliative care patient: Status: Chronic Discharge Plan Disposition Patient Disposition: HOME W/HOME HEALTH SERVICE Condition: Improving Discharge Details Reason For Visit: RESP DISTRESS,COPD EXACERBATION,FAILURE TO THRIVE Admit Date/Time: 12/02/19 10:53 Admit Provider: Angel Hernandez Attending Provider: Angel Hernandez [facility]: 59-year-old woman with multiple chronic medical conditions including COPD, his tiocytosis X, bipolar disorder, hypothyroidism, tobacco abuse, alcohol abuse. She presented to the emergency room for the second consecutive day complaining of difficulty breathing. She describes 2 weeks of progressive shortness of breath associated with a nonproductive cough. She feels her dyspnea on exertion is worse than her baseline. Work-up included routine labs, CT of the chest abdomen and pelvis, echocardiogram, chest x-ray and EKG. Admission CBC demonstrated a mild leukocytosis of 12,000, normal pro BNP of 297, normal troponin level of less than 1.05, and ABG that showed a stable PO2 of 95 with a saturation of 97% on her home oxygen level of 3.5 L/min and a mild elevation of her PCO2 at 49 with a normal pH 7.41. Urinalysis was unremarkable, COVID-19 test was negative. Chest imaging included a CT scan as well as CT scan of the abdomen pelvis. No evidence of pulmonary embolism or aneurysm was seen. Patient was found to have emphysematous changes and bilateral pulmonary scarring along with atelectasis in her right middle lobe and right posterior lower lobe and lingula. She had stable small pulmonary nodules. CT of the abdomen pelvis showed moderate aortic calcifications but no evidence for aneurysm. She has cholelithiasis but no evidence for cholecystitis. Influenza swab was negative. Blood cultures were obtained and showed no growth. Urine culture showed no growth. After multiple days of being hospitalized a sputum culture was finally obtained and preliminary report on the day of discharge is showing Pseudomonas species. Patient was treated as a COPD exacerbation with possible community-acquired pneumonia. She was initially treated with Rocephin and doxycycline and given high-dose IV corticosteroids clearing Solu-Medrol placed on scheduled DuoNeb treatments and Acapella treatments. Throughout her hospital stay she had difficulty mobilizing much sputum. She reported scant amounts of greenish sputum and only after being in the hospital for several days were we finally able to get a sputum culture. Gram stain showed moderate gram-negative rods with few white blood cells and rare epithelial cells. Preliminary culture on the day of discharge showing heavy growth of Pseudomonas species. When I assumed her care on December 09, 2019 I discontinued her Ceftin and doxycycline and start her on Levaquin 750 mg p.o. daily. On Wednesday, December 08, 2019 and amatory pulse oximetry showed stable SPO2 at rest but immediate desaturation with any ambulation. On the day of discharge December 11, 2019 she ambulated 300 feet without any stops and her lowest saturation was 90% with a heart rate of 110 bpm respiratory rate 24 breaths/min. Took her about 1 minute to recover with her SPO2 climbing to 96%. This was conducted on 3 L/min per nasal cannula. At rest on 2 L/min per nasal cannula her SPO2 was 95%. Echocardiogram was performed during her hospitalization and demonstrated normal left ventricular size and systolic function and normal left ventricular wall thickness with no wall motion abnormalities. However due to poor patient windows it was difficult to quantitate her left ventricular outflow tract gradient which was found. Peak gradient was around 25 to 30 mm with Valsalva maneuver. She had no systolic anterior motion of the mitral valve. Her left ventricular ejection fraction is 55% RV was not well visualized and therefore right ventricular systolic function could not be assessed. Left atrial size was normal right atrium was not well visualized. Aortic root was normal in size but with moderate dilatation of the ascending aorta. She had normal IVC size and normal respirophasic change of greater than 50%. On the day of discharge I spoke with her air liaison and special staff Dr. Brandt and expressed my concerns about the patient's difficulty in expectorating her sputum and that she still has a moist cough in spite of aerosol treatments and steroids and told her that I will start her on Levaquin. At the time of my conversation I did not have her sputum culture back which showed Pseudomonas. I discharged the patient on 7 days of Levaquin 750 mg daily, patient had already received 3 days worth. Because she is growing Pseudomonas she may need additional coverage beyond the [address] Brandt indicated that she would follow-up with the patient in a short-term office visit and would review the CT findings. She did recommend that the patient be set up with a percussion vest to help her with mobilization of her sputum. Our respiratory therapist called the patient's durable medical provider to try to set this up but as of this discharge this has not been set up yet. Respiratory therapy was awaiting to hear from the patient's DME provider. Home Meds and New Rx's Prescriptions: New levothyroxine 100 mcg Tablet 100 mcg PO DAILY@0600 Qty: 30 RF: 1 prednisone 20 mg Tablet 40 mg PO DAILY 6 Days Qty: 12 RF: 0 levofloxacin 750 mg Tablet 750 mg PO QAM 7 Days Qty: 7 RF: 0 Continued albuterol sulfate [ProAir HFA] 8.5 GM HFA aerosol inhaler 2 puff Inhalation Q4H PRN PRNRF: 0 citalopram 40 MG tablet 40 mg PO DAILY RF: 0 risperidone [Risperdal] 1 MG tablet 1.5 mg PO HS RF: 0 zolpidem [Ambien] 5 MG tablet 10 mg PO HS PRN PRNRF: 0 polyethylene glycol 3350 17 GM powder in packet 17 gm PO BID PRN PRNRF: 0 magnesium oxide 400 MG tablet 800 mg PO BID Qty: 60 RF: 2 Trelegy Ellipta 100-62.5-25 mcg Blister With Device 1 inh INHALATION DAILY RF: 0 cyclobenzaprine 10 mg Tablet 10 mg PO TID PRNRF: 0 omeprazole 40 mg capsule,delayed release(DR/EC) 40 mg PO DAILY RF: 0 cyanocobalamin (vitamin B-12) [Vitamin B-12] 1,000 mcg tablet 1,000 mcg PO DAILY RF: 0 folic acid 1 mg Tablet 1 mg PO DAILY RF: 0 gemfibrozil 600 mg Tablet 600 mg PO BID RF: 0 guaifenesin [Mucinex] 600 mg Tablet Extended Release 12hr 600 mg PO BID RF: 0 Narcan 4 mg/actuation [place],Non-Aerosol 4 mg intranasal PRN PRNRF: 0 nystatin 100,000 unit/gram Powder 1 applic TOPICAL BID RF: 0 diclofenac sodium [Voltaren] 1 % Gel 2 g TOPICAL QID RF: 0 oxycodone-acetaminophen [Percocet] 5-325 mg tablet 1 tab PO BID Qty: 6 RF: 0 calcium carbonate-vitamin D3 600 mg(1,500mg) -400 unit tablet 1 tab PO DAILY RF: 0 ipratropium-albuterol 0.5 mg-3 mg(2.5 mg base)/3 mL solution for nebulization 3 ml INHALATION Q4H PRNRF: 0 aspirin [Aspirin Low Dose] 81 mg Tablet,Delayed Release (Dr/Ec) 81 mg PO DAILY RF: 0 epinephrine [EpiPen 2-Janes] 0.3 MG/0.3 ML auto-injector 0.3 mg IM PRN PRNRF: 0 lisinopril 5 mg Tablet 5 mg PO DAILY RF: 0 meloxicam 15 mg Tablet 15 mg PO DAILY RF: 0 bupropion HCl 300 mg Tablet Extended Release 24 Hr 300 mg PO QAM RF: 0 nicotine (polacrilex) 4 mg Gum 4 mg PO Q30MIN PRNRF: 0 buspirone 15 mg Tablet 15 mg PO BID RF: 0 pregabalin [Lyrica] 50 mg Capsule 50 mg PO TID RF: 0 multivitamin [Multiple Vitamins] Tablet 1 tab PO DAILY Qty: 30 RF: 0 nicotine 21 mg/24 hr Patch 24 Hour 21 mg transdermal DAILY PRN PRNQty: 30 RF: 0 thiamine mononitrate (vit B1) [Vitamin B-1 (mononitrate)] 100 mg Tablet 100 mg PO DAILY Qty: 30 RF: 0 prednisone 10 mg tablet 10 mg PO DAILY Qty: 34 RF: 0 Changed alprazolam 2 mg Tablet Extended Release 24 Hr 2 mg PO BID PRN (Reason: Anxiety) Qty: 0 RF: 0 Discontinued trazodone 100 MG tablet 100 mg PO HS PRNRF: 0 levothyroxine [Synthroid] 75 MCG tablet 75 mcg PO DAILY Qty: 90 RF: 0 methocarbamol 500 mg tablet 500 mg PO Q6H PRN (Reason: muscle spasm) Qty: 14 RF: 0 ibuprofen 800 mg Tablet 800 mg PO TID RF: 0 nystatin 100,000 unit/mL Suspension 5 ml PO PRN PRNRF: 0 aspirin [Aspirin Low Dose] 81 mg Tablet,Delayed Release (Dr/Ec) RF: 0 doxycycline hyclate 100 mg tablet 100 mg PO BID Qty: 20 RF: 0 Discharge Instructions Instructions: COPD (Chronic Obstructive Pulmonary Disease) (DC), Community Acquired Pneumonia (DC) Stand Alone Forms: Nursing Discharge Form Referrals: Shirlene Brandt MD [ NON-[facility] STAFF PHYSICIAN] - Remy Ortega [Primary Care Provider] - (The office will call you with an appointment) Activity:: Activity as Tolerated Equipment/Supplies:: Percussion vests Diet:: Low Sodium Discharge Orders Discharge Orders: Discharge Order (Routine); Ordered 12/11/19 Ordered By: Saturnino Plascencia Discharge Data Discharge Date/Time-TO BE ENTERED AT DEPARTURE: 12/11/19 15:20 DS: Summary Status at Discharge Functional status at discharge: uses cane/walker Overall status at discharge: patient is progressing back to baseline Mental Status: mental status grossly normal Speech and Movement: speech and movement normal Mood: congruent mood Affect: normal affect Time Spent with Patient providing and/or coordinating discharge services: Greater than 30 minutes Specific discharge activities: Calls to the patient's air liaison and special staff, calls a respiratory therapist to set the patient up for percussion vest, sending out prescriptions Exam Narrative Exam Narrative: Obese female sitting up in her chair alert and oriented person place time circumstance. Chest with scattered expiratory rhonchi and bibasilar rales Heart is regular rate and rhythm Abdomen soft but obese and slightly distended nontender. Lower extremities with 1+ bilateral pitting pretibial edema. Patient is wearing ENRIQUE hose Psych Mental Status: mental status grossly normal Speech and Movement: speech and movement normal Mood: congruent mood Affect: normal affect DS: Data Vitals/I&O Vitals and I&O: Vital Signs Temperature 35.9 C L 12/11/19 11:24 Temperature Source Tympanic 12/11/19 11:24 Pulse 83 12/11/19 11:24 Pulse Rhythm Regular 12/11/19 09:07 Pulse 106 H 12/03/19 18:08 Respiratory Rate 18 12/11/19 11:24 Respiratory Effort Short of Breath 12/11/19 09:07 Respiratory Depth Normal 12/11/19 09:07 Respiratory Pattern Tachypnea 12/11/19 09:07 Blood Pressure 127/89 12/11/19 11:24 Blood Pressure Mean 98 12/03/19 18:08 Blood Pressure Position Sitting 12/02/19 13:00 Pulse Oximetry 97 12/11/19 11:24 Oxygen Delivery Method Nasal Cannula 12/11/19 11:24 Oxygen Flow Rate 2 12/11/19 11:24 Pain Level 6 12/11/19 11:24 Comment 12/08/19 15:14 Intake & Output 12/10/19 12/11/19 12/11/19 23:59 11:59 23:59 Intake Total 480 / 1530 240 / 240 Output Total 800 / 1500 750 / 750 Balance -320 / 30 -750 / -510 240 / -510 Weight 78.3 kg Intake: Oral 480 / 1510 240 / 240 Output: Urine 800 / 1500 750 / 750 Other: Urine Color Yellow Yellow Urine Appearance Clear Cloudy Urine Odor Normal None Comment Void x1 in the toilet. Stool Characteristics Formed Voiding Methods Toilet Toilet Data Completed and Pending Labs on day of discharge: Labs from last 24 hours 12/11/19 06:10 WBC 18.88 H RBC 4.47 Hgb 13.2 Hct 40.9 MCV 91.5 MCH 29.5 MCHC 32.3 RDW 14.0 Plt Count 264 MPV 10.0 Immature Gran % See Differential Neutrophils % 66.0 Lymphocytes % 23.0 Monocytes % 8.0 Eosinophils % 1.0 Basophils % 0.0 Metamyelocytes % 2 Nucleated RBC % 0 Absolute Neutrophils 12.46 H Absolute Lymphocytes 4.34 H Absolute Monocytes 1.51 H Absolute Eosinophils 0.19 Absolute Basophils 0.00 RBC Morphology See below Poikilocytosis 1+ Preliminary micro results at discharge 12/10/19 08:21 Sputum Culture - Preliminary Sputum Pseudomonas Species Normal [facility] Medical History (Updated 12/11/19 @ 15:23 by Saturnino Plascencia) Anxiety disorder Bipolar disorder Celiac artery stenosis COPD exacerbation Hypothyroidism (acquired) Left ventricular outflow tract obstruction Nicotine dependence with current use Pulmonary histiocytosis x Pulmonary hypertension Respiratory failure SMA stenosis Vertebral fracture, closed Surgical History History of right shoulder replacement Dr. Dee at [facility]. 5-6 years ago per pt. Hx of bilateral cataract extraction [address] Santos. Hx of section x 2. Hx of hysterectomy 10 yrs ago, done in [place] per pt. Social History Smoking/Tobacco Use Status: Current every day Tobacco Type: cigarettes Tobacco: How many years used: 40 Alcohol Intake: current Alcohol Intake frequency: a few times a week Alcohol type: beer Counseling given: Yes Details: says she is in AA and talks to her sponsor daily, drinking at 9 am @ visit Drug use: Never Substance use type: does not use Adopted: Yes Caregiver/Support person: No Foster care: Yes Household members: none Housing: apartment Number of Children: 1 number of grandchildren: 1 Pets and animals: No Current gender identity: female What is your relationship status?: How often do you get together with friends or relatives?: three or more times per week Panel score (0-1 are the most socially isolated patients): 1 What type of physical activity do you participate in: none Do you feel safe at home: Yes Do you feel safe in your relationship?: Yes
--- NOTE | 2019-12-12 07:40 | OTDS_ITS ---
Date of service: 12/12/19 Time of Service: 07:40 Occupational Therapy Notes Occupational Therapy Inpatient Discharge Summary Date: 12/12/19 Dates of Service: 12/04/19-12/12/19 Referring Doctor:Brenda Mcmanus MD OT Orders: Non-Urgent, limited ability Precautions: Fall, Standard *This document represents a summary of pts care, no skilled OT services were provided for this documentation* PATIENT PROFILE/ADMITTING DIAGNOSIS: Pt is a 59 year old female who states that for the past couple weeks, she has had difficulty breathing. Pt was admitted to [facility] with dx of celiac artery stenosis, SMA, acute CHF, pulmonary HTN, (L) ventricular tract obstruction, chronic respiratory failure with hypoxia and h ypercapnia, polypharmacy, abdominal pain, failure to thrive, chronic SOB, chronic cough, acute COPD with asthma, alcohol abuse, hypothyroidism, pulmoney hypotension, bipolar disorder. Past Medical History: Medical History Anxiety disorder Bipolar disorder COPD exacerbation Hypothyroidism (acquired) Nicotine dependence with current use Pulmonary histiocytosis x Respiratory failure Vertebral fracture, closed Surgical History History of right shoulder replacement Dr. Dee at [facility]. 5-6 years ago per pt. Hx of bilateral cataract extraction 2 [address] pt[address] Dr. Santos. Hx of section x 2. Hx of hysterectomy 10 yrs ago, done in [place] per pt. Social History/Home Situation: Pt lives in a handicap accessible apartment building in [facility]. She states that she previously had HHPT, OT and nursing coming into her home 2x/week. She has Meals on Wheels. She has a daughter and 8 year old granddaughter who live in [place], [place]. She states that she gets rides with [facility] or a close friend who (A) when she needs help as well as (A) from her sister. 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 She states that she has a tub/shower with shower bench, she has a raised toilet and that she is able to eat/brush her teeth and hair and go to the bathroom all (I). She does not that d/t her (R) shoulder she has difficulty with house keeping and if her pain gets really bad it takes her longer to perform her ADLs/IADLs then she likes. She uses a quad cane or a crutch most of the time for functional mobility. She notes that this really depends on how tired she is. She has HH services come into her home for 2 hours, 2x per week. Equipment owned/DME: quad cane, FWW, wheel chair, shower bench, handicap accessible apartment, portable O2 nasal cannula, raised toilet seat. SUBJECTIVE: NT OBJECTIVE: ROM: RUE Shoulder flexion limited pending shoulder surgery which she is being seen for on an outpatient basis. Elbow WNL, hand and digits WNL L UE AROM to 140*, elbow WNL, hand and digits WNL STRENGTH: RUE Shoulder flexion 3-/4, bicep 3+/5, tricep 3-/5, flavoring oil filterer is weak and symmetrical pt is (R) handed. LUE Shoulder flexion 3-/4, bicep 3+/5, tricep 3-/5, flavoring oil filterer is weak and symmetrical FUNCTIONAL MOBILITY/ADLS: Rolling (I) Supine-sit (I) DRESSING Dressing LE (I) don and doffing (B) socks in seated position, (I) [facility] gown with min (A) when difficulty breathing BAthing- seated in bed (I) with face, (B) UE and abdomen, (I) (B) LE Grooming- (I) with brushing hair in seated position BALANCE: Static sitting Normal Dynamic Sitting Normal ASSESSMENT: Patient is a 59-year-old female referred to occupational therapy services with diagnosis of celiac artery stenosis, SMA, acute CHF, pulmonary HTN, (L) ventricular tract obstruction, chronic respiratory failure with hypoxia and hypercapnia, polypharmacy, abdominal pain, failure to thrive, chronic SOB, chronic cough, acute COPD with asthma, alcohol abuse, hypothyroidism, pulmoney hypotension, bipolar disorder. Pt has been seen for multiple OT sessions, pt has been able to perform her ADLs with increased functional activity tolerance however she is limited due to breathing which has not significantly improved at this time. GOALS 1. Transfers (I) with cane- met 2. Dressing (I) in sitting position- met 3. Bathing (I) sitting in chair UE/LE- met 4. Toileting (I) on toilet- met 5. Eating (I)- cintia 6. Grooming (I) standing at sink brushing teeth and hair- not met d/t breathing. PLAN OF CARE/TREATMENT PLAN: Pt was discharged home on 12/10 and medically cleared per MD. Discharge from OT services. DISCHARGE RECOMMENDATIONS OT recommends that pt return home with continued OT services vs. SNF for continued rehabilitation based on her decreased functional activity tolerance, decreased ability to perform her ADLs in her home setting per pt report and mo derate risk for re-admission. TREATMENT TIME/MINUTES/CODES N/A Gardenia Strong OTR/L [facility]
--- NOTE | 2019-12-12 08:58 | PDOC.HHF2F_ITS ---
Home Health Certification Home Health Certification: 1. Encounter Date and Reason I certify that SHAVON FERNANDEZ was seen by Saturnino Plascencia on 12/12/19 and that I had a [id number] encounter with this patient that meets the physician face to face encounter requirements. 2. Clinical Findings Supporting Skilled Need and Homebound Status I certify that home health services are medically necessary, include either intermittent correction and/or physical/speech therapy, and that this patient is homebound in that absences from the home require considerable and taxing effort and are infrequent or of short duration, or are attributable to the need to receive medical care. [X] (a) Attached documentation from encounter provides clinical findings supporting skilled need and homebound status (including what assistance patient requires to leave the home). The encounter with the patient was in whole, or in part, for the following medical condition, which is the primary reason for home health care: RESP DISTRESS,COPD EXACERBATION,FAILURE TO THRIVE Alf: Home health care nurse to educate patient regarding management of her COPD and to monitor patient's response to treatment. Home health care nurse to obtain lab work at the discretion of PCP. Physical Therapy: Speech Therapy: Homebound:Severity of patient's COPD and pneumonia prohibits patient from being able to go out in the community to obtain healthcare services. 3. Certification and Authentication I certify that I composed the above information based on my clinical judgement relating to this patient's medical condition and, if applicable, clinical findings communicated to me by the NPP or inpatient physician who performed the Home Health Referral. All further orders will be obtained through Dr. Remy Elizalde (Community Based Physician - PCP)
== END 2019-12-11 15:20 | disposition home health service (06) | DRG 178 ==
LOC: ER 23:27 → ICU 12-02 00:40 → MS 12-04 10:09
PROVIDERS: Internal Medicine; Admitting Provider Family Medicine; Emergency Provider Student in an Organized Health Care Education/Training Program; PCP Family Medicine; Visit Provider Family Medicine
DX: J15.1 Pneumonia due to Pseudomonas (principal); J44.0 Chronic obstructive pulmonary disease with (acute) lower respiratory infection; C96.0 Multifocal and multisystemic (disseminated) Langerhans-cell histiocytosis; J96.11 Chronic respiratory failure with hypoxia; J96.12 Chronic respiratory failure with hypercapnia; I77.4 Celiac artery compression syndrome; K55.1 Chronic vascular disorders of intestine; J44.1 Chronic obstructive pulmonary disease with (acute) exacerbation; J98.11 Atelectasis; Z99.81 Dependence on supplemental oxygen; F17.210 Nicotine dependence, cigarettes, uncomplicated; K59.00 Constipation, unspecified; Z79.891 Long term (current) use of opiate analgesic; Z79.52 Long term (current) use of systemic steroids; R62.7 Adult failure to thrive; F10.10 Alcohol abuse, uncomplicated; F31.9 Bipolar disorder, unspecified; E03.9 Hypothyroidism, unspecified; F41.9 Anxiety disorder, unspecified; Z11.59 Encounter for screening for other viral diseases; I50.9 Heart failure, unspecified; I27.20 Pulmonary hypertension, unspecified; Z66 Do not resuscitate; I50.814 Right heart failure due to left heart failure; K80.20 Calculus of gallbladder without cholecystitis without obstruction
CPT/HCPCS: 36415; 71275; 74177; 80048; 80053; 82803; 82805; 85027; 85652; 87040; 87077; 87449; 90686; 93005; 94618; 94640; 96365; 96375; 97110; 97162; 97165; 97530; 97535; 99220; 99232; 99233; 99239; 99255; 99285; J1650; NC; U0003; 36600; 71045; 81003; 83605; 83735; 83880; 84132; 84439; 84443; 84484; 85025; 85610; 85730; 86140; 87070; 87086; 87186; 87205; 93010; 93306; 94667; G0378; J0131; J0696; J1885; J1941; J2270; J2930; J3490; J7512; J7620